=== PATIENT | female | born 1940 | race Asian ===

== ENCOUNTER → 2016-07-26 | Outpatient (CLI) | payer BC ==
[~2016-07-26] MED LIST: CEPH500C PO; CHOL100010 PO; DLC5 PO; DOCU-94 PO; ERGO1CAP35 PO; FENO145T26 PO; FISHOIL PO; INSDGI SC; INSDGIPEN SC; INSU1INJ23 SC; LAMO100T PO; LAMO25TA PO; LEVO112T2 PO; LITH150C PO; LMC25 PO; LORA-741 PO; LOSA100T65 PO; MULT-513 PO; NVLGI SC; NVLGI/PEN SQ; NVLGIPEN SQ; OMEG10007 PO; PANT40TA PO; QUET400T PO; SENN-61 PO
[2016-07-26 17:31] LABS: HEMATOCRIT 33.2 % (37-47); MEAN CELL VOLUME 94.6 fL (80-100); MEAN CORPUSCULAR HEMOGLOBIN 31.3 pg (25-34); MEAN CORPUSCULAR HGB CONC 33.1 g/dl (32-36); MEAN PLATELET VOLUME 11.4 fL (7.4-10.4); PLATELET COUNT 305 K/uL (130-400); RED BLOOD COUNT 3.51 M/uL (4.2-5.4); WHITE BLOOD COUNT 4.94 K/uL (4.8-10.8)
[2016-07-26 17:34] LABS: URINE APPEARANCE CLEAR (CLEAR); URINE BILIRUBIN NEG (NEG); URINE COLOR YELLOW; URINE EPITHELIAL CELL AUTO 20-30 /lpf (0-5); URINE NITRITE NEG (NEG); URINE SPECIFIC GRAVITY 1.007 (1.000-1.030); UROBILINOGEN NEG (NEG)
[2016-07-26 17:39] LABS: MANUAL MICROSCOPIC REQUIRED? NO; REVIEW REQ? NO
[2016-07-26 17:58] LABS: URINE PROTIEN/CREAT RATIO 0.2 (0-0.2); URINE TOTAL PROTEIN 19.8 mg/dl (0-11.9)
[2016-07-26 18:02] LABS: BLOOD UREA NITROGEN 22 mg/dl (7-18); BUN/CREATININE RATIO 13.2 (10-20); CALCIUM 9.3 mg/dl (8.5-10.1); CARBON DIOXIDE 31 mmol/L (21-32); CHLORIDE 98 mmol/L (98-107); GLUCOSE 154 mg/dl (70-99); POTASSIUM 4.1 mmol/L (3.5-5.1); SODIUM 136 mmol/L (136-145)
[2016-07-26 18:15] LABS: PHOSPHORUS 3.1 mg/dl (2.5-4.9)
[2016-07-27 06:20] LABS: ESTIMATED AVERAGE GLUCOSE 154 mg/dl; HA1C FLAG Normal (Normal)
== END | disposition home or self-care (01) ==
LOC: C.LAB1850 16:39
PROVIDERS: ATTEND Internal Medicine Nephrology
DX: E11.649 Type 2 diabetes mellitus with hypoglycemia without coma (principal); D64.9 Anemia, unspecified; I12.9 Hypertensive chronic kidney disease with stage 1 through stage 4 chronic kidney disease, or unspecified chronic kidney disease; E21.3 Hyperparathyroidism, unspecified; E11.22 Type 2 diabetes mellitus with diabetic chronic kidney disease; N18.3 Chronic kidney disease, stage 3 (moderate); E55.9 Vitamin D deficiency, unspecified

== ENCOUNTER 2016-12-31 23:02 | Observation (INO) | payer BC ==
[~2016-12-31] VITALS: Ht 162.6 cm; Wt 52.5 kg
[~2016-12-31 23:02] MED LIST changes: -CEPH500C PO; -INSDGIPEN SC; -LAMO100T PO; -LAMO25TA PO; -LMC25 PO; -LORA-741 PO; -NVLGI/PEN SQ; -NVLGIPEN SQ; -OMEG10007 PO
--- NOTE | 2016-12-31 23:33 | EMERGENCY ROOM VISIT NOTE ---
History Report prepared by Madiha: Tre Marques Under the Supervision of: Dr. Miguelangel Hickey M.D. First contact with patient: 23:15 Chief Complaint: CONSTIPATION Stated Complaint: CONSTIPATION History of Present Illness The patient is a 76 year old female who presents to the Emergency Room with complaints of constipation for the past couple of days. She is experiencing abdominal pain that she rates a 10/10 in severity. The pain has made it difficult for the patient to walk. She notes that this has happened to her in the past; however, her pain is much worse this time. She denies any fevers. She has a past medical history of diabetes and bi polar disorder. She took an Ativan earlier tonight. She denies any recent changes to her medications. Source of History: patient Onset: a couple of days ago Position: other (GI) Symptom Intensity: moderate Quality: other (constipation) Timing: constant Associated Symptoms: + abdominal pain, No fevers Review of Systems See HPI for pertinent positives & negatives. A total of 10 systems reviewed and were otherwise negative. Past Medical & Surgical Medical Problems: (1) BIPOL I, MOST RECENT EPISODE (OR CURRENT) UNSPECIFIED (2) Constipation (3) Diabetes (4) Heart disease (5) Hypertension (6) Hyponatremia (7) Hysterectomy (8) MALIGN NEOPL BREAST NOS (9) Rectal pain, chronic Family History Cancer Diabetes mellitus Hypertension Social History Smoking Status: Never Smoker Alcohol Use: none Drug Use: none Marital Status: Housing Status: lives with significant other Occupation Status: unemployed Current/Historical Medications Scheduled Fenofibrate (Tricor), 145 MG PO DAILY Fish Oil (Lewis-3), 2 CAP PO DAILY Insulin Aspart (Novolog Flexpen), 6 UNITS SQ with afternoon meal Insulin Aspart (Novolog Flexpen), 5 UNITS SQ with am & pm meal Insulin Glargine (Lantus Solostar), 12 UNITS SC QPM Insulin Isophane (Human) (Humulin N Kwikpen), 3 UNITS SC QPM Levothyroxine Sodium (Synthroid), 112 MCG PO DAILY Dewar Carbonate ([place] Carbonate), 150 MG PO QPM Lorazepam (Ativan), 0.5 MG PO DAILY Losartan Potassium (Cozaar), 100 MG PO DAILY Multivitamins/Minerals (Mvi With Minerals), 1 TAB PO DAILY Pantoprazole (Protonix), 40 MG PO DAILY Quetiapine Fumarate Xr (Seroquel Xr Tab), 400 MG PO HS Allergies Coded Allergies: Iodinated Diagnostic Agents (Verified Allergy, Severe, Anaphylaxis, ) Dust (Verified Allergy, Unknown, UNKNOWN, 12/31/16) Fungi (Verified Allergy, Unknown, UNKNOWN, 12/31/16) Molds and Smuts (Verified Allergy, Unknown, UNKNOWN, 12/31/16) POLLEN (Verified Allergy, Unknown, UNKNOWN, 12/31/16) Physical Exam Vital Signs Date Time Temp Pulse Resp B/P (MAP) Pulse Ox O2 Delivery O2 Flow Rate FiO2 01/01/17 01:59 82 18 121/74 96 Room Air 01/01/17 01:15 84 18 96 Room Air 01/01/17 00:07 88 18 124/77 96 Room Air 12/31/16 23:40 84 12/31/16 23:37 95 Room Air 12/31/16 23:35 80 18 124/77 95 Room Air 12/31/16 23:03 36.7 89 20 118/79 96 Room Air Physical Exam GENERAL: Patient is anxious appearing and in moderate acute distress. HEENT: No acute trauma, normocephalic atraumatic, mucous membranes moist, no nasal congestion, no scleral icterus. NECK: No stridor, no adenopathy, no meningismus, trachea is midline. LUNGS: No dyspnea. Clear to auscultation and equal bilaterally. No wheeze, no rhonchi. HEART: Regular rate and rhythm. No murmurs, rubs, gallops appreciated. ABDOMEN: Soft, nontender, bowel sounds hypoactive, no masses appreciated, no peritonitis. BACK: No midline tenderness, no CVA tenderness EXTREMITIES: Normal motion all extremities, no cyanosis, no edema. NEUROLOGIC: Alert and oriented, no acute motor or sensory deficits, no focal weakness, cranial nerves grossly intact. SKIN: No rash, no jaundice, no diaphoresis. Medical Decision & Procedures ER Provider Diagnostic Interpretation: Radiology results and stated below per my review and radiologist interpretation: CT ABDOMEN & PELVIS: Fluid within nondistended stomach and bowel without wall thickening or surrounding inflammation is nonspecific and may be normal but can also be seen with gastroenteritis in the right clinical setting. No bowel obstruction. No appendicitis or other inflammatory changes of bowel. Pancreas is unremarkable. Prior cholecystectomy. No renal calculi. No hydronephrosis. Renal cysts. Left renal atrophy/scarring. No free air or free fluid. Chronic appearing moderate anterior wedge deformity of the T12 vertebral body. No retropulsion or underlying pathology. Great 1 degenerative anterolisthesis of L4 on L5. Radiologist: Humberto Velasquez M.D. Laboratory Results 12/31/16 23:40 Red Blood Count 4.05, Mean Corpuscular Volume 91.1, Mean Corpuscular Hemoglobin 28.9, Mean Corpuscular Hemoglobin Concent 31.7, Mean Platelet Volume 10.4, Neutrophils (%) (Auto) 63.7, Lymphocytes (%) (Auto) 29.4, Monocytes (%) (Auto) 6.0, Eosinophils (%) (Auto) 0.5, Basophils (%) (Auto) 0.1, Neutrophils # (Auto) 4.98, Lymphocytes # (Auto) 2.30, Monocytes # (Auto) 0.47, Eosinophils # (Auto) 0.04, Basophils # (Auto) 0.01 Test 12/31/16 23:40 White Blood Count 7.82 K/uL (4.8-10.8) Red Blood Count 4.05 M/uL (4.2-5.4) Hemoglobin 11.7 g/dL (12.0-16.0) Hematocrit 36.9 % (37-47) Mean Corpuscular Volume 91.1 fL (80-100) Mean Corpuscular Hemoglobin 28.9 pg (25-34) Mean Corpuscular Hemoglobin Concent 31.7 g/dl (32-36) Platelet Count 440 K/uL (130-400) Mean Platelet Volume 10.4 fL (7.4-10.4) Neutrophils (%) (Auto) 63.7 % Lymphocytes (%) (Auto) 29.4 % Monocytes (%) (Auto) 6.0 % Eosinophils (%) (Auto) 0.5 % Basophils (%) (Auto) 0.1 % Neutrophils # (Auto) 4.98 K/uL (1.4-6.5) Lymphocytes # (Auto) 2.30 K/uL (1.2-3.4) Monocytes # (Auto) 0.47 K/uL (0.11-0.59) Eosinophils # (Auto) 0.04 K/uL (0-0.5) Basophils # (Auto) 0.01 K/uL (0-0.2) RDW Standard Deviation 43.5 fL (36.4-46.3) RDW Coefficient of Variation 13.0 % (11.5-14.5) Immature Granulocyte % (Auto) 0.3 % Immature Granulocyte # (Auto) 0.02 K/uL (0.00-0.02) Est Creatinine Clear Calc Drug Dose 12.8 ml/min Total Bilirubin 0.3 mg/dl (0.2-1) Direct Bilirubin < 0.1 mg/dl (0-0.2) Aspartate Amino Transf (AST/SGOT) 31 U/L (15-37) Alanine Aminotransferase (ALT/SGPT) 21 U/L (12-78) Alkaline Phosphatase 118 U/L (45-117) Total Protein 7.9 gm/dl (6.4-8.2) Albumin 4.2 gm/dl (3.4-5.0) Lipase 782 U/L (73-393) Thyroid Stimulating Hormone (TSH) 3.950 uIu/ml (0.300-4.500) [place] Level 0.4 mMOL/L (0.6-1.2) Laboratory results as reviewed by me. Medications Administered Medications (Trade) Dose Ordered Sig/Gin Route Start Time Stop Time Status Last Admin Dose Admin Sodium Chloride 500 ml @ 999 mls/hr Q31M STAT IV 01/01/17 00:18 01/01/17 00:48 DC 01/01/17 00:28 999 MLS/HR ED Course 2315: The patient was evaluated in room C7. A complete history and physical exam was performed. 0018: Ordered Sodium Chloride 500 ml @ 999 mls/hr IV 0027: Upon reevaluation, the patient is resting. Discussed results and treatment plan with the patient. She verbalized understanding and agreement with the treatment plan. The patient will be evaluated by Dr. Dieter BAZAN, for further management. Medical Decision Differential diagnosis: Etiologies such as functional constipation, impaction, obstruction, volvulus, metabolic abnormality, infection, urinary retention, neurologic, as well as others were entertained. Blood pressure screening: Patient was found to have normal blood pressure on screening and does not require follow-up. Medication Reconciliation: I attest that I have personally reviewed the patient 's current medication list. 76 yr old female arrives for evaluation of lower abdominal discomfort and stating she feels constipated. No BM in two days. With pain and history felt imaging reasonable (non con as allergic to IV dye) which revealed not acute surgical findings. She was found to be in acute renal failure. Appears in Jul 2016 mild renal insufficiency at 1.7 with baseline having been around 1 and now Cr up to 3. Suspect this is somewhat dehydration related given her exam and BUN elevation. Dewar level OK. No clear evidence of overt infection. Will bring in for further work-up and evaluation. Consults Time Called: 002 Consulting Physician: Dr. Garcias - [facility] [place] Returned Call: 0027 He will be evaluating the patient for further management and care. Impression Primary Impression: Acute kidney failure Additional Impression: Dehydration Scribe Attestation The scribe's documentation has been prepared under my direction and personally reviewed by me in its entirety. I confirm that the note above accurately reflects all work, treatment, procedures, and medical decision making performed by me. Departure Information Dispostion Being Evaluated By Hospitalist Referrals ,Danyel Olivarez M.D. (PCP) Patient Instructions My [facility] Problem Qualifiers
[2016-12-31 23:46] LABS: BASO % 0.1 %; BASO ABS # 0.01 K/uL (0-0.2); COMPLETE YES; EOS % 0.5 %; HEMATOCRIT 36.9 % (37-47); IG% 0.3 %; LYMPH % 29.4 %; MEAN CELL VOLUME 91.1 fL (80-100); MEAN CORPUSCULAR HEMOGLOBIN 28.9 pg (25-34); MEAN CORPUSCULAR HGB CONC 31.7 g/dl (32-36); MEAN PLATELET VOLUME 10.4 fL (7.4-10.4); NEUT % 63.7 %; PLATELET COUNT 440 K/uL (130-400); RED BLOOD COUNT 4.05 M/uL (4.2-5.4); WHITE BLOOD COUNT 7.82 K/uL (4.8-10.8)
[2017-01-01 00:04] LABS: ALT/SGPT 21 U/L (12-78); BLOOD UREA NITROGEN 69 mg/dl (7-18); BUN/CREATININE RATIO 23.1 (10-20); CALCIUM 9.9 mg/dl (8.5-10.1); CARBON DIOXIDE 38 mmol/L (21-32); CHLORIDE 92 mmol/L (98-107); GLUCOSE 105 mg/dl (70-99); POTASSIUM 4.3 mmol/L (3.5-5.1); SODIUM 135 mmol/L (136-145)
[2017-01-01 00:07] LABS: ALKALINE PHOSPHATASE 118 U/L (45-117); AST/SGOT 31 U/L (15-37)
[2017-01-01] MEDS ORDERED: SODIUM CHLORIDE 0.9% 500ML 500 ML IV STA (00:18)
[2017-01-01] MEDS ORDERED: OMEG10007 PO (00:28)
[2017-01-01] MEDS ORDERED: LORA-741 PO (00:30)
[2017-01-01] MEDS ORDERED: INSDGIPEN SC (00:30)
[2017-01-01] MEDS ORDERED: NVLGIPEN SQ (00:32)
[2017-01-01] MEDS ORDERED: NVLGI/PEN SQ (00:32)
[2017-01-01] MEDS ORDERED: GLUCOSE 40% GEL 15 GM TUBE PO PRN (01:30)
[2017-01-01] MEDS ORDERED: DC ALL PREVIOUSLY ORDERED DIABETES MEDS ONE (01:30)
[2017-01-01] MEDS ORDERED: ACETAMINOPHEN 325 MG TAB PO PRN (01:30)
[2017-01-01] MEDS ORDERED: DEXTROSE 50% 50 ML SYR IV PRN (01:30)
[2017-01-01] MEDS ORDERED: GLUCAGON FOR INJ 1 MG VIAL SQ PRN (01:30)
[2017-01-01] MEDS ORDERED: GLUCOSE 10 TABS/TUBE PO PRN (01:30)
[2017-01-01] MEDS ORDERED: ONDANSETRON INJ 2 MG/ML 2 ML VIAL IV PRN (01:30)
[2017-01-01] MEDS ORDERED: IV FLUIDS COMPLETED PRN (02:45)
[2017-01-01 03:03] VITALS: BP 148/71; PULSE 82; TEMP 37; O2SAT 95; Ht 162.6 cm; Wt 52.5 kg
--- NOTE | 2017-01-01 03:10 | History and Physical ---
History & Physical Date & Time of Service: Jan 01, 2017 at 02:50 Chief Complaint: Acute Kidney Failure Primary Care Physician: No Doctor, Assigned History of Present Illness Source: patient, clinic records, hospital records Unclear history from patient with regards to symptoms and timings. It appears her main symptom when she came to the ER was constipation and abdominal pain but currently does not have any abdominal pain and just asks me to get the poo out of her. She is unable to expand on her pain in terms of severity, onset, timing, character, other than she feels she needs to have a bowel movement despite having 3-4 already today. She reports recently being off lithium for 4 days and making her feel generally sick. She thinks Dr Castillo may have taken her off of it due to her thirst and kidney problems. However her symptoms were too severe that she was started back on lithium (she is unsure exactly when and mentions something about half a dose but it is unclear whether she is currently doing this). Unfortunately her has hearing problems and also is unaware of her symptoms other than she has chronic constipation. Past Medical/Surgical History Medical Problems: (1) BIPOL I, MOST RECENT EPISODE (OR CURRENT) UNSPECIFIED Status: Chronic (2) Constipation Status: Chronic (3) Diabetes Status: Chronic (4) Heart disease Status: Chronic (5) Hypertension Status: Chronic (6) Hysterectomy Status: Resolved (7) MALIGN NEOPL BREAST NOS Status: Resolved Family History Cancer Diabetes mellitus Hypertension Social History Smoking Status: Never Smoker Drug Use: none Marital Status: Housing status: lives with family Occupational Status: unemployed Immunizations History of Influenza Vaccine: No Influenza Vaccine Date: Sep 21, 2005 History of Tetanus Vaccine?: UTD History of Pneumococcal: No History of Hepatitis B Vaccine: No Multi-Drug Resistant Organisms History of MDRO: No Allergies Coded Allergies: Iodinated Diagnostic Agents (Verified Allergy, Severe, Anaphylaxis, ) Dust (Verified Allergy, Unknown, UNKNOWN, 12/31/16) Fungi (Verified Allergy, Unknown, UNKNOWN, 12/31/16) Molds and Smuts (Verified Allergy, Unknown, UNKNOWN, 12/31/16) POLLEN (Verified Allergy, Unknown, UNKNOWN, 12/31/16) Home Medications Scheduled Fenofibrate (Tricor), 145 MG PO DAILY Fish Oil ([place]-3), 2 CAP PO DAILY Insulin Aspart (Novolog Flexpen), 6 UNITS SQ with afternoon meal Insulin Aspart (Novolog Flexpen), 5 UNITS SQ with am & pm meal Insulin Glargine (Lantus Solostar), 12 UNITS SC QPM Insulin Isophane (Human) (Humulin N Kwikpen), 3 UNITS SC QPM Levothyroxine Sodium (Synthroid), 112 MCG PO DAILY [place] Carbonate ([place] Carbonate), 150 MG PO QPM Lorazepam (Ativan), 0.5 MG PO DAILY Losartan Potassium (Cozaar), 100 MG PO DAILY Multivitamins/Minerals (Mvi With Minerals), 1 TAB PO DAILY Pantoprazole (Protonix), 40 MG PO DAILY Quetiapine Fumarate Xr (Seroquel Xr Tab), 400 MG PO HS Review of Systems Constitutional: No fever, No chills Eyes: No worsening of vision ENT: No hearing loss Respiratory: No cough, No shortness of breath Cardiovascular: No chest pain Abdomen: No pain, No nausea, No vomiting, No diarrhea, No constipation, No GI bleeding Musculoskeletal: No joint pain, No muscle pain Genitourinary - Female: No dysuria, No urinary frequency, No urinary urgency, No urinary incontinence, No urinary retention Endocrine: No fatigue Hematologic / Lymphatic: No abnormal bleeding/bruising Integumentary: No rash, No itch Physical Exam Vital Signs Date Time Temp Pulse Resp B/P (MAP) Pulse Ox O2 Delivery O2 Flow Rate FiO2 01/01/17 01:59 82 18 121/74 96 Room Air 01/01/17 01:15 84 18 96 Room Air 01/01/17 00:07 88 18 124/77 96 Room Air 12/31/16 23:40 84 12/31/16 23:37 95 Room Air 12/31/16 23:35 80 18 124/77 95 Room Air 12/31/16 23:03 36.7 89 20 118/79 96 Room Air General Appearance: WD/WN, no apparent distress Head: normocephalic, atraumatic Eyes: normal inspection (pupils equal) Neck: supple, no JVD, trachea midline Respiratory/Chest: chest non-tender, lungs clear, normal breath sounds, no respiratory distress, no accessory muscle use Cardiovascular: regular rate, rhythm, no murmur, normal peripheral pulses Abdomen/GI: normal bowel sounds, non tender, soft, normal rectal exam (empty rectum no stool, FOB negative (but negliable sample size)) Back: no CVA tenderness Extremities/Musculoskelatal: no calf tenderness Neurologic/Psych: 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-XII nml as tested (no facial droop), no motor/sensory deficits (grossly), alert, oriented x 3 Diagnostics Laboratory Results Results Past 24 Hours Test 12/31/16 23:40 Range/Units White Blood Count 7.82 4.8-10.8 K/uL Red Blood Count 4.05 4.2-5.4 M/uL Hemoglobin 11.7 12.0-16.0 g/dL Hematocrit 36.9 37-47 % Mean Corpuscular Volume 91.1 80-100 fL Mean Corpuscular Hemoglobin 28.9 25-34 pg Mean Corpuscular Hemoglobin Concent 31.7 32-36 g/dl Platelet Count 440 130-400 K/uL Mean Platelet Volume 10.4 7.4-10.4 fL Neutrophils (%) (Auto) 63.7 % Lymphocytes (%) (Auto) 29.4 % Monocytes (%) (Auto) 6.0 % Eosinophils (%) (Auto) 0.5 % Basophils (%) (Auto) 0.1 % Neutrophils # (Auto) 4.98 1.4-6.5 K/uL Lymphocytes # (Auto) 2.30 1.2-3.4 K/uL Monocytes # (Auto) 0.47 0.11-0.59 K/uL Eosinophils # (Auto) 0.04 0-0.5 K/uL Basophils # (Auto) 0.01 0-0.2 K/uL RDW Standard Deviation 43.5 36.4-46.3 fL RDW Coefficient of Variation 13.0 11.5-14.5 % Immature Granulocyte % (Auto) 0.3 % Immature Granulocyte # (Auto) 0.02 0.00-0.02 K/uL Sodium Level 135 136-145 mmol/L Potassium Level 4.3 3.5-5.1 mmol/L Chloride Level 92 98-107 mmol/L Carbon Dioxide Level 38 21-32 mmol/L Anion Gap 5.0 3-11 mmol/L Blood Urea Nitrogen 69 7-18 mg/dl Creatinine 3.00 0.60-1.20 mg/dl Est Creatinine Clear Calc Drug Dose 12.8 ml/min Estimated GFR () 16.6 Estimated GFR (Non- 14.3 BUN/Creatinine Ratio 23.1 10-20 Random Glucose 105 70-99 mg/dl Calcium Level 9.9 8.5-10.1 mg/dl Total Bilirubin 0.3 0.2-1 mg/dl Direct Bilirubin < 0.1 0-0.2 mg/dl Aspartate Amino Transf (AST/SGOT) 31 15-37 U/L Alanine Aminotransferase (ALT/SGPT) 21 12-78 U/L Alkaline Phosphatase 118 45-117 U/L Total Protein 7.9 6.4-8.2 gm/dl Albumin 4.2 3.4-5.0 gm/dl Lipase 782 73-393 U/L Thyroid Stimulating Hormone (TSH) 3.950 0.300-4.500 uIu/ml [place] Level 0.4 0.6-1.2 mMOL/L Diagnostic Radiology ABD/PELVIS WITHOUT FOR STONE CLINICAL HISTORY: 76 years-old Female presenting with diffuse abdominal pain, constipation. TECHNIQUE: Multidetector CT of the abdomen and pelvis was performed without the use of intravenous contrast. IV contrast: None. COMPARISON: 02/20/2016. CT DOSE: The estimated cumulative dose is 372.75 mGy.cm. FINDINGS: Vibration Analyst topogram: Cholecystectomy clips and linear density in the region of the left renal hilum. Lung bases: Dependent groundglass opacities/mosaic attenuation, likely atelectasis. Normal heart size. Coronary artery calcification. Trace pericardial effusion. No pleural effusion. Liver: Normal morphology. Normal density. Biliary: Mild prominence of the intrahepatic and extrahepatic bile ducts likely a reservoir effect in the post cholecystectomy state. Surgically absent gallbladder. Pancreas: Normal. Spleen: Normal. Adrenal glands: Normal. Kidneys and ureters: Mildly exophytic lesion at the upper pole the right kidney is soft tissue density, indeterminate. This is unchanged from prior exam. Prominent hypodense round lesion in the lower pole the right kidney likely represent cysts. Similarly the left kidney contains multiple well-defined hypodensities, indeterminate but likely cysts. Additionally a round hyperdense focus at the lower pole laterally measures 12 mm in diameter (series 2 image 58) and is similar in appearance to prior exam. No hydronephrosis. Prominent linear hyperdensity along the course of a segmental left renal artery likely represents dense atherosclerosis. Gastrointestinal tract: Fluid within the colon likely suggests diarrheal state. No significant colonic wall thickening. Normal appendix. No bowel obstruction. Linear hyperdensity in the stomach consistent with dense ingested material. Peritoneal cavity: No free fluid or intraperitoneal gas. Bladder: Mild apparent circumferential bladder wall thickening. No perivesicular inflammatory change. Pelvic organs: Patient is status post hysterectomy. No adnexal masses. Vasculature: Atherosclerosis of the normal caliber abdominal aorta. Lymph nodes: No enlarged lymph nodes in the abdomen or pelvis. Abdominal wall: Diastases of the abdominis rectus. Infiltration in the anterior abdominal wall with a focus of gas likely relates to medication injection. Musculoskeletal: Degenerative changes of the lumbar spine and sacroiliac joints. Mild anterior vertebral body height loss of T12. Mild anterolisthesis of L4 on L5. IMPRESSION: 1. Fluid within the colon suggests a diarrheal state. No colonic wall thickening to suggest colitis. 2. Multiple suspected renal cysts in addition to a soft tissue density lesion at the upper pole the right kidney and hyperdense lesion in the left kidney. These are incompletely characterized. Benign entity such as hemorrhagic or proteinaceous cysts could have this appearance, although neoplasm cannot be excluded. 3. Mild circumferential bladder wall thickening, which could relate to underdistention or represent mild cystitis. Correlate with urinalysis. Electronically signed by: Ed White M.D. 01/01/2017 7:04 AM Dictated Date/Time: 01/01/2017 6:53 AM Impression Assessment and Plan 76 year old female with chronic abdominal pains and constipation presents with similar symptoms to previous occasions YEVGENIY vs. CKD - unclear how acute her Cr rise is considering in Jul Cr 1.7, under Dr Cruz for CKD stage 3 - stop nephrotoxic medications including ACEi - IVF overnight - UA + micro +/- culture if indicated - Consult nephrology Bipolar - continue lithium for mood stabilization currently at non toxic level but will consult psychiatry if there is an alternative suitable mood stabilizer for her. VTE Prophylaxis - heparin 5000 units SQ Q12H Code - Full as per patient wishes although she has limited understanding of this despite multiple explanations Disposition - admit to med/surg Resident Physician Supervision Note: I was present with Dr. Trevino during the history and exam. I discussed the case with the resident and agree with the findings and plan as documented in the note. Any exceptions or clarifications are listed here: Documented By: Zuhair Garcias 76 y/o F CKD (possibly stage 3), Bipolar disease, hyponatremia, HTN Presented with abdominal discomfort related to constipation however labs returned + for acute on chronic RF OE AAO x 2 S1,2 R CTAB Mild diffuse tenderness on abdominal exam No CCE P: IVF - consult nephrology Urine lytes ordered [place] level checked - not toxic but can contribute to failure regardless - may need substitution which has proved difficult in past Resuscitation Status FULL RESUSCITATION VTE Prophylaxis VTE Risk Assessment Done? Y/N: Yes Risk Level: Moderate Given or contraindicated: Unfractionated heparin SQ
[2017-01-01] MEDS ORDERED: PNEUMOCOCCAL ADMINISTRATION CHARGE ONE (03:45)
[2017-01-01] MEDS ORDERED: PNEUMOCOCCAL POLYSACCHARIDES 25 MCG/0.5 ML VIAL/SYR IM. ONE (03:45)
[2017-01-01] MEDS: SODIUM CHLORIDE 0.9% 1000ML 1,000 ML IV SCH ×4 (04:21→18:36)
[2017-01-01 05:55] LABS: PROTHROMBIN TIME (PATIENT) 10.3 SECONDS (9.0-12.0)
[2017-01-01 06:19] LABS: CALCIUM 9.2 mg/dl (8.5-10.1); CREATININE 2.7 mg/dl (0.60-1.20); POTASSIUM 3.8 mmol/L (3.5-5.1)
[2017-01-01] MEDS: LEVOTHYROXINE 112 MCG TAB PO SCH (06:30)
[2017-01-01 06:55] LABS: ARTERIAL BLD GAS O2 SATURATION 96.7 % (90-95); ARTERIAL BLOOD GAS BASE EXCESS 4.7 mEq/L (-9-1.8); ARTERIAL BLOOD GAS HCO3 29 mmol/L (19-24); ARTERIAL BLOOD GAS PO2 89 mm/Hg (80-95); ARTERIAL BLOOD GAS pH 7.47 (7.35-7.45)
[2017-01-01 06:56] LABS: ALLEN TEST POS (POS); O2 ADMINISTRATION ROOM AIR
[2017-01-01 06:58] LABS: ESTIMATED AVERAGE GLUCOSE 148 mg/dl; HA1C FLAG Normal (Normal)
--- NOTE | 2017-01-01 07:05 | DIAGNOSTIC IMAGING REPORT ---
ABD/PELVIS WITHOUT FOR STONE CLINICAL HISTORY: 76 years-old Female presenting with diffuse abdominal pain, constipation. TECHNIQUE: Multidetector CT of the abdomen and pelvis was performed without the use of intravenous contrast. IV contrast: None. COMPARISON: 02/20/2016. CT DOSE: The estimated cumulative dose is 372.75 mGy.cm. 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 Lung bases: Dependent groundglass opacities/mosaic attenuation, likely atelectasis. Normal heart size. Coronary artery calcification. Trace pericardial effusion. No pleural effusion. Liver: Normal morphology. Normal density. Biliary: Mild prominence of the intrahepatic and extrahepatic bile ducts likely a reservoir effect in the post cholecystectomy state. Surgically absent gallbladder. Pancreas: Normal. Spleen: Normal. Adrenal glands: Normal. Kidneys and ureters: Mildly exophytic lesion at the upper pole the right kidney is soft tissue density, indeterminate. This is unchanged from prior exam. Prominent hypodense round lesion in the lower pole the right kidney likely represent cysts. Similarly the left kidney contains multiple well-defined hypodensities, indeterminate but likely cysts. Additionally a round hyperdense focus at the lower pole laterally measures 12 mm in diameter (series 2 image 58) and is similar in appearance to prior exam. No hydronephrosis. Prominent linear hyperdensity along the course of a segmental left renal artery likely represents dense atherosclerosis. Gastrointestinal tract: Fluid within the colon likely suggests diarrheal state. No significant colonic wall thickening. Normal appendix. No bowel obstruction. Linear hyperdensity in the stomach consistent with dense ingested material. Peritoneal cavity: No free fluid or intraperitoneal gas. Bladder: Mild apparent circumferential bladder wall thickening. No perivesicular inflammatory change. Pelvic organs: Patient is status post hysterectomy. No adnexal masses. Vasculature: Atherosclerosis of the normal caliber abdominal aorta. Lymph nodes: No enlarged lymph nodes in the abdomen or pelvis. Abdominal wall: Diastases of the abdominis rectus. Infiltration in the anterior abdominal wall with a focus of gas likely relates to medication injection. Musculoskeletal: Degenerative changes of the lumbar spine and sacroiliac joints. Mild anterior vertebral body height loss of T12. Mild anterolisthesis of L4 on L5. IMPRESSION: 1. Fluid within the colon suggests a diarrheal state. No colonic wall thickening to suggest colitis. 2. Multiple suspected renal cysts in addition to a soft tissue density lesion at the upper pole the right kidney and hyperdense lesion in the left kidney. These are incompletely characterized. Benign entity such as hemorrhagic or proteinaceous cysts could have this appearance, although neoplasm cannot be excluded. 3. Mild circumferential bladder wall thickening, which could relate to underdistention or represent mild cystitis. Correlate with urinalysis. Electronically signed by: Ed White M.D. 01/01/2017 7:04 AM Dictated Date/Time: 01/01/2017 6:53 AM
[2017-01-01 08:00] VITALS: O2SAT 95
[2017-01-01 08:39] LABS: URINE APPEARANCE CLEAR (CLEAR); URINE BILIRUBIN NEG (NEG); URINE COLOR YELLOW; URINE NITRITE NEG (NEG); URINE SPECIFIC GRAVITY 1.017 (1.000-1.030); UROBILINOGEN NEG (NEG); ZZURINE CULT IF INDIC CATH YES
[2017-01-01 08:42] LABS: MANUAL MICROSCOPIC REQUIRED? NO; REVIEW REQ? NO
[2017-01-01] MEDS ORDERED: LORAZEPAM 0.5 MG TAB PO SCH (09:00)
[2017-01-01 09:15] LABS: BENZODIAZEPINE, URINE NEG (NEG); COCAINE,URINE NEG (NEG); PHENCYCLIDINE, URINE NEG (NEG)
[2017-01-01] MEDS: PANTOprazole SOD 40 MG TAB PO SCH (09:35)
[2017-01-01] MEDS: CEROVITE ADV FORMULA TAB PO SCH (09:35)
[2017-01-01] MEDS: FENOFIBRATE 145 MG TAB PO SCH (09:36)
[2017-01-01] MEDS: INSULIN GLARGINE SOLOSTAR 100 UNITS/ML 3 ML PEN SC SCH ×2 (09:37→21:15)
[2017-01-01] MEDS: HEPARIN SOD 5000 UNIT/0.5 ML CARP SQ SCH ×2 (09:38→21:00)
--- NOTE | 2017-01-01 10:27 | Medical Student: [facility] ---
Med Student Progress Note Date of Service Jan 01, 2017. Subjective Pt evaluation today including: physical exam, chart review, lab review Ms. Lanier is a 76 year old female who presented to the ER with constipation and abdominal pain, which resolved by the time she had gotten to the floor. Per nursing, overnight was responsive only to sternal rub. Vital signs were stable, BG 188, ABG with slight metabolic alkalosis. Prior to unresponsive event, patient was responsive and answering questions appropriately. No medications given prior. Upon examination this morning, she was not responsive to voice or light touch. She would become responsive after multiple painful stimuli. She was alert and oriented x3 and continue to request her lithium before repeatedly closing her eyes. Objective Vital Signs Date Time Temp Pulse Resp B/P (MAP) Pulse Ox O2 Delivery O2 Flow Rate FiO2 01/01/17 03:03 37.0 82 20 148/71 95 Room Air 01/01/17 01:59 82 18 121/74 96 Room Air 01/01/17 01:15 84 18 96 Room Air 01/01/17 00:07 88 18 124/77 96 Room Air 12/31/16 23:40 84 12/31/16 23:37 95 Room Air 12/31/16 23:35 80 18 124/77 95 Room Air 12/31/16 23:03 36.7 89 20 118/79 96 Room Air Laboratory Results Last 24 Hours Test 12/31/16 23:40 01/01/17 05:08 01/01/17 06:04 01/01/17 06:44 White Blood Count 7.82 K/uL Red Blood Count 4.05 M/uL Hemoglobin 11.7 g/dL Hematocrit 36.9 % Mean Corpuscular Volume 91.1 fL Mean Corpuscular Hemoglobin 28.9 pg Mean Corpuscular Hemoglobin Concent 31.7 g/dl Platelet Count 440 K/uL Mean Platelet Volume 10.4 fL Neutrophils (%) (Auto) 63.7 % Lymphocytes (%) (Auto) 29.4 % Monocytes (%) (Auto) 6.0 % Eosinophils (%) (Auto) 0.5 % Basophils (%) (Auto) 0.1 % Neutrophils # (Auto) 4.98 K/uL Lymphocytes # (Auto) 2.30 K/uL Monocytes # (Auto) 0.47 K/uL Eosinophils # (Auto) 0.04 K/uL Basophils # (Auto) 0.01 K/uL RDW Standard Deviation 43.5 fL RDW Coefficient of Variation 13.0 % Immature Granulocyte % (Auto) 0.3 % Immature Granulocyte # (Auto) 0.02 K/uL Sodium Level 135 mmol/L 136 mmol/L Potassium Level 4.3 mmol/L 3.8 mmol/L Chloride Level 92 mmol/L 96 mmol/L Carbon Dioxide Level 38 mmol/L 34 mmol/L Anion Gap 5.0 mmol/L 6.0 mmol/L Blood Urea Nitrogen 69 mg/dl 70 mg/dl Creatinine 3.00 mg/dl 2.70 mg/dl Est Creatinine Clear Calc Drug Dose 12.8 ml/min 14.2 ml/min Estimated GFR () 16.6 18.8 Estimated GFR (Non- 14.3 16.2 BUN/Creatinine Ratio 23.1 26.0 Random Glucose 105 mg/dl 212 mg/dl Calcium Level 9.9 mg/dl 9.2 mg/dl Total Bilirubin 0.3 mg/dl Direct Bilirubin < 0.1 mg/dl Aspartate Amino Transf (AST/SGOT) 31 U/L Alanine Aminotransferase (ALT/SGPT) 21 U/L Alkaline Phosphatase 118 U/L Total Protein 7.9 gm/dl Albumin 4.2 gm/dl Lipase 782 U/L Thyroid Stimulating Hormone (TSH) 3.950 uIu/ml [place] Level 0.4 mMOL/L Prothrombin Time 10.3 SECONDS Prothromb Time International Ratio 1.0 Estimated Average Glucose 148 mg/dl Hemoglobin A1c 6.8 % Osmolality 313 mOsm/kg Bedside Glucose 188 mg/dl Arterial Blood pH 7.47 Arterial Blood Partial Pressure CO2 41 mmHg Arterial Blood Partial Pressure O2 89 mm/Hg Arterial Blood HCO3 29 mmol/L Arterial Blood Oxygen Saturation 96.7 % Arterial Blood Base Excess 4.7 mEq/L Arterial Blood Gas Delivery ROOM AIR [place] Test POS Test 01/01/17 07:39 01/01/17 08:30 Bedside Glucose 262 mg/dl Urine Color YELLOW Urine Appearance CLEAR Urine pH 8.0 Urine Specific [place] 1.017 Urine Protein NEG Urine Glucose (UA) NEG Urine Ketones NEG Urine Occult Blood NEG Urine Nitrite NEG Urine Bilirubin NEG Urine Urobilinogen NEG Urine Leukocyte Esterase SMALL Urine WBC (Auto) 5-10 /hpf Urine RBC (Auto) 0-4 /hpf Urine Hyaline Casts (Auto) 1-5 /lpf Urine Epithelial Cells (Auto) 10-20 /lpf Urine Bacteria (Auto) 1+ Urine Osmolality 399 mOms/kg Urine Random Creatinine 100.0 mg/dl Urine Random Sodium 38 mEq/L Urine Opiates Screen NEG Urine Methadone, Qualitative NEG Urine Barbiturates NEG Urine Phencyclidine (PCP) Level NEG Ur Amphetamine/Methamphetamine NEG MDMA (Ecstasy) Screen NEG Urine Benzodiazepines Screen NEG Urine Cocaine Metabolite NEG Urine Marijuana (THC) NEG Medications Current Inpatient Medications Medications (Trade) Dose Ordered Sig/Gin Route Start Time Stop Time Status Last Admin Dose Admin Acetaminophen (Tylenol Tab) 650 mg Q4H PRN PO 01/01/17 01:30 01/31/17 01:29 Ondansetron HCl (Zofran Inj) 4 mg Q6H PRN IV 01/01/17 01:30 01/31/17 01:29 Heparin Sodium (Porcine) (Heparin Sq 5000 Unit/0.5ml) 5,000 unit Q12 SQ 01/01/17 09:00 01/31/17 08:59 01/01/17 09:38 5,000 UNIT Insulin Glargine (Lantus Solostar Pen) 6 units Q12H SC 01/01/17 09:00 01/31/17 08:59 01/01/17 09:37 6 UNITS Insulin Aspart (novoLOG ASPART) SLIDING SCALE If C... ACHS SC 01/01/17 06:30 01/31/17 06:59 UNV Glucose (Glucose 40% Gel) 15-30 GRAMS 15 GRAMS... UD PRN PO 01/01/17 01:30 01/31/17 01:29 Glucose (Glucose Chew Tab) 4-8 Tablets 4 Tabl... UD PRN PO 01/01/17 01:30 01/31/17 01:29 Dextrose (Dextrose 50% 50ML Syringe) 25-50ML OF 50% DW IV FOR... UD PRN IV 01/01/17 01:30 01/31/17 01:29 Glucagon (Glucagon Inj) 1 mg UD PRN SQ 01/01/17 01:30 01/31/17 01:29 Fenofibrate (Tricor Tab) 145 mg DAILY PO 01/01/17 09:00 01/31/17 08:59 01/01/17 09:36 145 MG Levothyroxine Sodium (Synthroid Tab) 112 mcg DAILYBB PO 01/01/17 06:30 01/31/17 06:29 Lorazepam (Ativan Tab) 0.5 mg DAILY PO 01/01/17 09:00 01/31/17 08:59 01/01/17 09:35 0.5 MG Multivitamins/ Minerals (Multivitamin W/ Minerals Tab) 1 tab DAILY PO 01/01/17 09:00 01/31/17 08:59 01/01/17 09:35 1 TAB Pantoprazole Sodium (Protonix Tab) 40 mg DAILY PO 01/01/17 09:00 01/31/17 08:59 01/01/17 09:35 40 MG Quetiapine Fumarate (seroQUEL XR TAB) 400 mg HS PO 01/01/17 21:00 01/31/17 20:59 [place] Carbonate ([place] Carbonate Tab) 150 mg QPM PO 01/01/17 21:00 01/31/17 20:59 Miscellaneous (Iv Fluids Completed) 1 ea PRN PRN N/A 01/01/17 02:45 01/01/18 02:44 Sodium Chloride 1,000 ml @ 200 mls/hr Q5H IV 01/01/17 03:15 01/31/17 03:14 01/01/17 09:36 200 MLS/HR Miscellaneous Information (Order Awaiting Action) 1 ea QS N/A 01/01/17 16:00 01/31/17 15:59 Assessment and Plan Assessment and Plan: 76 year old female with PMH Bipolar I on lithium and diabetes presenting with an acute kidney injury YEVGENIY on CKD - last Cr 1.7 in Jul 2016, 2.7 on admission - hold nephrotoxic medications (losartan) - IV NS at 200ml/hr - nephrology consulted Diabetes - continue home insulin regimen Bipolar - continue lithium - consider psych consult for alternative medication Diet: PPX: heparin Dispo: med/surg CODE: FULL
--- NOTE | 2017-01-01 12:12 | Nephrology Consultation ---
Nephrology Consultation Date & Providers Date of Consultation: Jan 01, 2017. Primary Care Provider: No Doctor, Assigned Referring Provider: Reason for Consultation Evaluation and management for acute kidney injury. History of Present Illness Noe Is a 76-year-old female with past medical history significant for hypertension, diabetes, stage 3 chronic kidney disease, bipolar disorder admitted to the hospital with several days history of constipation and abdominal pain. nephrologic consult was requested as patient found to have acute kidney injury. Electronic medical records were reviewed in detail during patient's visit. Patient is a poor historian so most of the information was obtained from medical record review in hospital and office EMR. Noe has history of stage 3 chronic kidney disease baseline creatinine around 1.5-1.7, secondary to microvascular disease, chronic lithium use and hypertension. Has diabetes without retinopathy or significant proteinuria. Blood pressure seems to be well controlled on losartan 100 daily. She has history of bipolar disorder and has been on lithium however there is some information that lithium was stopped or dose changed recently. Currently she is on 150 milligram per day and lithium level on admission was 0.4. She presented to the hospital with few days history of constipation and abdominal pain. On admission CT abdomen pelvis showed no evidence of colitis or bowel obstruction, no hydronephrosis . She was started on IV hydration and her creatinine started to improve. On admission creatinine was 3.0 which improved to 2.7 this morning. All other electrolyte seems to be at acceptable. Losartan has been on hold. Renal imaging showed bilateral simple cyst and benign appearing in detail emanate lesion in both kidney which are present before as well without any new changes. Her blood pressure has been stable without any significant hypotensive episode. She is difficult to understand however denies any symptom and just wants to go home. Allergies Coded Allergies: Iodinated Diagnostic Agents (Verified Allergy, Severe, Anaphylaxis, ) Dust (Verified Allergy, Unknown, UNKNOWN, 12/31/16) Fungi (Verified Allergy, Unknown, UNKNOWN, 12/31/16) Molds and Smuts (Verified Allergy, Unknown, UNKNOWN, 12/31/16) POLLEN (Verified Allergy, Unknown, UNKNOWN, 12/31/16) Inpatient Medications Current Inpatient Medications Medications (Trade) Dose Ordered Sig/Gin Route Start Time Stop Time Status Last Admin Dose Admin Acetaminophen (Tylenol Tab) 650 mg Q4H PRN PO 01/01/17 01:30 01/31/17 01:29 Ondansetron HCl (Zofran Inj) 4 mg Q6H PRN IV 01/01/17 01:30 01/31/17 01:29 Heparin Sodium (Porcine) (Heparin Sq 5000 Unit/0.5ml) 5,000 unit Q12 SQ 01/01/17 09:00 01/31/17 08:59 01/01/17 09:38 5,000 UNIT Insulin Glargine (Lantus Solostar Pen) 6 units Q12H SC 01/01/17 09:00 01/31/17 08:59 01/01/17 09:37 6 UNITS Insulin Aspart (novoLOG ASPART) SLIDING SCALE If C... ACHS SC 01/01/17 11:00 01/31/17 10:59 Glucose (Glucose 40% Gel) 15-30 GRAMS 15 GRAMS... UD PRN PO 01/01/17 01:30 01/31/17 01:29 Glucose (Glucose Chew Tab) 4-8 Tablets 4 Tabl... UD PRN PO 01/01/17 01:30 01/31/17 01:29 Dextrose (Dextrose 50% 50ML Syringe) 25-50ML OF 50% DW IV FOR... UD PRN IV 01/01/17 01:30 01/31/17 01:29 Glucagon (Glucagon Inj) 1 mg UD PRN SQ 01/01/17 01:30 01/31/17 01:29 Fenofibrate (Tricor Tab) 145 mg DAILY PO 01/01/17 09:00 01/31/17 08:59 01/01/17 09:36 145 MG Levothyroxine Sodium (Synthroid Tab) 112 mcg DAILYBB PO 01/01/17 06:30 01/31/17 06:29 Lorazepam (Ativan Tab) 0.5 mg DAILY PO 01/01/17 09:00 01/31/17 08:59 01/01/17 09:35 0.5 MG Multivitamins/ Minerals (Multivitamin W/ Minerals Tab) 1 tab DAILY PO 01/01/17 09:00 01/31/17 08:59 01/01/17 09:35 1 TAB Pantoprazole Sodium (Protonix Tab) 40 mg DAILY PO 01/01/17 09:00 01/31/17 08:59 01/01/17 09:35 40 MG Quetiapine Fumarate (seroQUEL XR TAB) 400 mg HS PO 01/01/17 21:00 01/31/17 20:59 [place] Carbonate ([place] Carbonate Tab) 150 mg QPM PO 01/01/17 21:00 01/31/17 20:59 Miscellaneous (Iv Fluids Completed) 1 ea PRN PRN N/A 01/01/17 02:45 01/01/18 02:44 Sodium Chloride 1,000 ml @ 200 mls/hr Q5H IV 01/01/17 03:15 01/31/17 03:14 01/01/17 09:36 200 MLS/HR Family History Cancer Diabetes mellitus Hypertension Social History Smoking Status: Never Smoker Drug Use: none Marital Status: Housing Status: lives with family Occupation: unemployed Review of Systems A complete review of systems was performed. Pertinent positives are noted above. All other systems are negative. Physical Exam Date Time Temp Pulse Resp B/P (MAP) Pulse Ox O2 Delivery O2 Flow Rate FiO2 01/01/17 03:03 37.0 82 20 148/71 95 Room Air 01/01/17 01:59 82 18 121/74 96 Room Air 01/01/17 01:15 84 18 96 Room Air 01/01/17 00:07 88 18 124/77 96 Room Air 12/31/16 23:40 84 12/31/16 23:37 95 Room Air 12/31/16 23:35 80 18 124/77 95 Room Air 12/31/16 23:03 36.7 89 20 118/79 96 Room Air GENERAL: Elderly female AAA x 3, pleasant, ill-appearing, not in any distress. HEENT: Atraumatic, normocephalic. NECK: Supple, no JVD, no carotid bruit appreciated. ENT: No sinus tenderness MOUTH and THROAT: Moist oral mucosa, no oral ulcer or pharyngeal erythema RESPIRATORY: Normal breathing efforts, no accessory muscle use, clear to auscultation bilaterally, no wheezes or rales. CARDIOVASCULAR: S1, S2 normal, rate rhythm regular. ABDOMEN: Soft, nontender, positive bowel sound. MUSCULOSKELETAL: No joint swelling, erythema or tenderness. Normal range of motion. SKIN: No skin rash EXTREMITY: No lower extremity edema NEURO: No gross focal neurological deficit. PSYCHIATRY: Normal mood and judgment Laboratory Results Last 24 Hours Test 12/31/16 23:40 01/01/17 05:08 01/01/17 06:04 01/01/17 06:44 White Blood Count 7.82 K/uL Red Blood Count 4.05 M/uL Hemoglobin 11.7 g/dL Hematocrit 36.9 % Mean Corpuscular Volume 91.1 fL Mean Corpuscular Hemoglobin 28.9 pg Mean Corpuscular Hemoglobin Concent 31.7 g/dl Platelet Count 440 K/uL Mean Platelet Volume 10.4 fL Neutrophils (%) (Auto) 63.7 % Lymphocytes (%) (Auto) 29.4 % Monocytes (%) (Auto) 6.0 % Eosinophils (%) (Auto) 0.5 % Basophils (%) (Auto) 0.1 % Neutrophils # (Auto) 4.98 K/uL Lymphocytes # (Auto) 2.30 K/uL Monocytes # (Auto) 0.47 K/uL Eosinophils # (Auto) 0.04 K/uL Basophils # (Auto) 0.01 K/uL RDW Standard Deviation 43.5 fL RDW Coefficient of Variation 13.0 % Immature Granulocyte % (Auto) 0.3 % Immature Granulocyte # (Auto) 0.02 K/uL Sodium Level 135 mmol/L 136 mmol/L Potassium Level 4.3 mmol/L 3.8 mmol/L Chloride Level 92 mmol/L 96 mmol/L Carbon Dioxide Level 38 mmol/L 34 mmol/L Anion Gap 5.0 mmol/L 6.0 mmol/L Blood Urea Nitrogen 69 mg/dl 70 mg/dl Creatinine 3.00 mg/dl 2.70 mg/dl Est Creatinine Clear Calc Drug Dose 12.8 ml/min 14.2 ml/min Estimated GFR () 16.6 18.8 Estimated GFR (Non- 14.3 16.2 BUN/Creatinine Ratio 23.1 26.0 Random Glucose 105 mg/dl 212 mg/dl Calcium Level 9.9 mg/dl 9.2 mg/dl Total Bilirubin 0.3 mg/dl Direct Bilirubin < 0.1 mg/dl Aspartate Amino Transf (AST/SGOT) 31 U/L Alanine Aminotransferase (ALT/SGPT) 21 U/L Alkaline Phosphatase 118 U/L Total Protein 7.9 gm/dl Albumin 4.2 gm/dl Lipase 782 U/L Thyroid Stimulating Hormone (TSH) 3.950 uIu/ml [place] Level 0.4 mMOL/L Prothrombin Time 10.3 SECONDS Prothromb Time International Ratio 1.0 Estimated Average Glucose 148 mg/dl Hemoglobin A1c 6.8 % Osmolality 313 mOsm/kg Bedside Glucose 188 mg/dl Arterial Blood pH 7.47 Arterial Blood Partial Pressure CO2 41 mmHg Arterial Blood Partial Pressure O2 89 mm/Hg Arterial Blood HCO3 29 mmol/L Arterial Blood Oxygen Saturation 96.7 % Arterial Blood Base Excess 4.7 mEq/L Arterial Blood Gas Delivery ROOM AIR [place] Test POS Test 01/01/17 07:39 01/01/17 08:30 01/01/17 11:25 Bedside Glucose 262 mg/dl 263 mg/dl Urine Color YELLOW Urine Appearance CLEAR Urine pH 8.0 Urine Specific [place] 1.017 Urine Protein NEG Urine Glucose (UA) NEG Urine Ketones NEG Urine Occult Blood NEG Urine Nitrite NEG Urine Bilirubin NEG Urine Urobilinogen NEG Urine Leukocyte Esterase SMALL Urine WBC (Auto) 5-10 /hpf Urine RBC (Auto) 0-4 /hpf Urine Hyaline Casts (Auto) 1-5 /lpf Urine Epithelial Cells (Auto) 10-20 /lpf Urine Bacteria (Auto) 1+ Urine Osmolality 399 mOms/kg Urine Random Creatinine 100.0 mg/dl Urine Random Sodium 38 mEq/L Urine Opiates Screen NEG Urine Methadone, Qualitative NEG Urine Barbiturates NEG Urine Phencyclidine (PCP) Level NEG Ur Amphetamine/Methamphetamine NEG MDMA (Ecstasy) Screen NEG Urine Benzodiazepines Screen NEG Urine Cocaine Metabolite NEG Urine Marijuana (THC) NEG Impression (1) Acute kidney failure (2) Stage 3 chronic kidney disease (3) Anemia (4) Hypertension (5) Diabetes (6) Constipation Noe Lanier Is a 76-year-old female with past medical history significant for hypertension, diabetes, stage 3 chronic kidney disease, bipolar disorder admit to the hospital with them abdominal pain and constipation. On admission she was found to have acute kidney injury creatinine 3.0, baseline creatinine around 1.5-1.7. No history of significant proteinuria. Renal imaging was negative for hydronephrosis. Acute kidney injury most likely secondary to prerenal etiology, fractional excretion of the sodium is less than 1, renal function started to improve with IV hydration. urine analysis otherwise unremarkable. Has history of bipolar disorder, has been on lithium, lithium level was in fact lower than therapeutic goal, 0.4. She was on losartan 100 at home which has been on hold since admission. No significant hypo or hypertensive episode. Recommendations --continue IV fluid, suggest decreasing to 100 mL/hour and discontinue once p.o. intake adequate -- with her current GFR, ideally lithium dose should be decreased however her lithium level was fine yesterday and if renal function continues to improve, we can keep her on her current dose, will repeat lithium level tomorrow -- continue to monitor renal function with daily renal panel, expect renal function will continue to improve --Will follow while inpatient, suggest holding discharge until at least creatinine less than 2 --she has a follow-up appointment with Dr. Cruz on 01/28/2017 Thank you for allowing me to participate in your patient's care. It was a pleasure to see Young. This chart was completed utilizing [employer] and voice recognition software. Grammatical errors, random word insertions, pronoun errors and incomplete sentences are occasional consequences of this system. Any questions or concerns about the content, text or information contained within the body of this dictation should be addressed directly to the physician for clarification.
--- NOTE | 2017-01-01 13:39 | Psychiatric Consultation ---
Consultation Date of Consultation Jan 01, 2017. (Mimi Sarmiento,ROSALVA) Identifying Data 76-year-old woman admitted to the hospital with acute on chronic renal failure. We are consulted to evaluate lithium therapy. (Mimi Sarmiento,ROSALVA) Chief Complaint "I have been perfect on lithium.". (Mimi Sarmiento,ROSALVA) History of Present Illness 76-year-old woman with medical conditions including insulin-dependent diabetes, hypertension, hypothyroidism, dyslipidemia, IBS with chronic constipation and history of breast cancer in 2004 who is admitted to the hospital with acute on chronic renal failure with a BUN of 70 and a creatinine of 2.7. We're consulted to to evaluate medications other than lithium for her bipolar. According to the patient, she has been on lithium and Seroquel for about the last 6 years and says that on that combination she has been "perfect" . She is attached to this medication regimen and is reticent to give it up. She says it has been years since she's had any kind of manic episode and she has had only days of depression without a prolonged episode. She does not remember any previous mood stabilizer trials. She indicates that her mood is generally been good. Her appetite is "not good" and has been losing an unspecified amount of weight. Her anxiety is "almost nothing". Her energy is okay. She denies ever having auditory or visual hallucinations. She denies suicidal or homicidal ideation. She indicates that she saw her regular provider , Dr. Jovanny Castillo 9 recently and due to her worsening renal values, he cut her lithium dosage in half from 300-150 mg at the end of November. I have spoken with Dr. Castillo by phone. He has reviewed his records to find that she has previously been tried on Abilify, Trileptal, Latuda, Invega and Lamictal. While on Lamictal, she did develop rashes. He discontinued this but recommended a retrial which she did not proceed with. He indicates he has tried to get her off of lithium multiple times over the years, however when the dosage gets low, she destabilizes psychiatrically. He also acknowledges that she has a somewhat neurotic style to her and is emotionally connected to lithium in a way that makes it difficult for her to think about giving it up. She has traditionally been resistant to trying new medications because of this as well. (Mimi Sarmiento,ROSALVA) Past Psychiatric History Current OP Treatment: psychiatrist (Dr. Castillo. Previously saw Dr. Alonzo) Prior OP Treatment: psychiatrist Prior Psych Hospitalizations: [facility]) Access to a Gun: No Suicide Attempts: No Past Medication Trials Prozac, Abilify (couldn't tolerate), Ativan, and vague, Trileptal, Latuda, Lamictal (rashes) (Mimi Sarmiento,ROSALVA) Past Medical/Surgical History History of Concussion/Seizure: No (1) Hypothyroidism (2) Constipation (3) Acute kidney failure (4) Stage 3 chronic kidney disease (5) Diabetes (6) Hypertension (Mimi Sarmiento NP) Allergies Allergies: Coded Allergies: Iodinated Diagnostic Agents (Verified Allergy, Severe, Anaphylaxis, ) Dust (Verified Allergy, Unknown, UNKNOWN, 12/31/16) Fungi (Verified Allergy, Unknown, UNKNOWN, 12/31/16) Molds and Smuts (Verified Allergy, Unknown, UNKNOWN, 12/31/16) POLLEN (Verified Allergy, Unknown, UNKNOWN, 12/31/16) Home Medications Scheduled Fenofibrate (Tricor), 145 MG PO DAILY Fish Oil ([place]-3), 2 CAP PO DAILY Insulin Aspart (Novolog Flexpen), 6 UNITS SQ with afternoon meal Insulin Aspart (Novolog Flexpen), 5 UNITS SQ with am & pm meal Insulin Glargine (Lantus Solostar), 12 UNITS SC QPM Insulin Isophane (Human) (Humulin N Kwikpen), 3 UNITS SC QPM Levothyroxine Sodium (Synthroid), 112 MCG PO DAILY [place] Carbonate ([place] Carbonate), 150 MG PO QPM Lorazepam (Ativan), 0.5 MG PO DAILY Losartan Potassium (Cozaar), 100 MG PO DAILY Multivitamins/Minerals (Mvi With Minerals), 1 TAB PO DAILY Pantoprazole (Protonix), 40 MG PO DAILY Quetiapine Fumarate Xr (Seroquel Xr Tab), 400 MG PO HS Family History Cancer Diabetes mellitus Hypertension History of Suicide: No History of Substance Abuse: No Psychiatric History: No (Mimi Sarmiento,ROSALVA) Cancer Diabetes mellitus Hypertension (Ally Beasley MD) Alcohol Use Alcohol Use In Past 12 Months: No (Mimi Sarmiento NP) Smoking Use Smoking Status: Never Smoker (Mimi Sarmiento NP) Substance History Denies (Mimi Sarmiento NP) Personal History Lives in: [place] with her Childhood: Grew up in [place], moved here in her early 20s to study at a university in [place]. 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) Children: 2 adult children Spiritual Affiliation: Synagogue Legal History: none Psychological Trauma History: Denies Hx Traumatic Event (Mimi Sarmiento NP) Review of Systems Constitutional: denies no symptoms reported, denies see HPI, denies chills, denies diaphoresis, denies fever, denies malaise, denies weakness, denies other Eyes: denies: no symptoms, as stated in HPI, eye pain, tearing, itching, redness, discharge, double vision, visual changes, blurred vision, photophobia, other ENT: denies: no symptoms reported, see HPI, ear pain, ear discharge, loss of hearing, tinnitus, nasal pain, nasal congestion, rhinorrhea, epistaxis, sore throat, stidor, throat swelling, mouth pain, mouth swelling, dental pain, gum swelling, other Cardiovascular: denies: no symptoms reported, see HPI, chest pain, chest tightness, chest pressure, diaphoresis, palpitations, syncope, other Respiratory: denies: no symptoms reported, see HPI, cough, orthopnea, short of breath, stridor, wheezing, sputum production, cyanosis, SIMMONS, PND, other Gastrointestinal: constipation (chronic) Genitourinary - Female: denies: no symptoms, see HPI, rash, amenorrhea, dysmenorrhea, menorrhagia, metrorrhagia, , vaginal bleeding, vaginal itching, vaginal discharge, vulvadynia, other Musculoskeletal: denies no symptoms reported, denies see HPI, denies back pain , denies gout, denies joint pain, denies joint swelling, denies muscle pain, denies muscle stiffness, denies neck pain, denies other Integumentary: denies no symptoms reported, denies see HPI, denies change in color, denies change in hair/nails, denies dryness, denies lesions, denies lumps , denies rash, denies other Neurologic: reports: other (right facial tic) Endocrine: denies: no symptoms, as stated in HPI, cold intolerance, heat intolerance, hair changes, goiter, polydipsia, polyuria, skin changes, other Hematologic / Lymphatic: denies: no symptoms, as stated in HPI, abnormal clotting, adenopathy, anemia, easy bleeding, easy bruising, gums bleeding, petechiae, other (Mimi Sarmiento,QUALITY ASSURANCE LEAD) Examination Physical Examination As per Dr. Trevino (Mimi Sarmiento,QUALITY ASSURANCE LEAD) Vital Signs Vital Signs Past 12 Hours Date Time Temp Pulse Resp B/P (MAP) Pulse Ox O2 Delivery O2 Flow Rate FiO2 01/01/17 03:03 37.0 82 20 148/71 95 Room Air 01/01/17 01:59 82 18 121/74 96 Room Air 01/01/17 01:15 84 18 96 Room Air (Mimi Sarmiento,QUALITY ASSURANCE LEAD) Laboratory Results Last 24 Hours Test 12/31/16 23:40 01/01/17 05:08 01/01/17 06:04 01/01/17 06:44 White Blood Count 7.82 K/uL Red Blood Count 4.05 M/uL Hemoglobin 11.7 g/dL Hematocrit 36.9 % Mean Corpuscular Volume 91.1 fL Mean Corpuscular Hemoglobin 28.9 pg Mean Corpuscular Hemoglobin Concent 31.7 g/dl Platelet Count 440 K/uL Mean Platelet Volume 10.4 fL Neutrophils (%) (Auto) 63.7 % Lymphocytes (%) (Auto) 29.4 % Monocytes (%) (Auto) 6.0 % Eosinophils (%) (Auto) 0.5 % Basophils (%) (Auto) 0.1 % Neutrophils # (Auto) 4.98 K/uL Lymphocytes # (Auto) 2.30 K/uL Monocytes # (Auto) 0.47 K/uL Eosinophils # (Auto) 0.04 K/uL Basophils # (Auto) 0.01 K/uL RDW Standard Deviation 43.5 fL RDW Coefficient of Variation 13.0 % Immature Granulocyte % (Auto) 0.3 % Immature Granulocyte # (Auto) 0.02 K/uL Sodium Level 135 mmol/L 136 mmol/L Potassium Level 4.3 mmol/L 3.8 mmol/L Chloride Level 92 mmol/L 96 mmol/L Carbon Dioxide Level 38 mmol/L 34 mmol/L Anion Gap 5.0 mmol/L 6.0 mmol/L Blood Urea Nitrogen 69 mg/dl 70 mg/dl Creatinine 3.00 mg/dl 2.70 mg/dl Est Creatinine Clear Calc Drug Dose 12.8 ml/min 14.2 ml/min Estimated GFR () 16.6 18.8 Estimated GFR (Non- 14.3 16.2 BUN/Creatinine Ratio 23.1 26.0 Random Glucose 105 mg/dl 212 mg/dl Calcium Level 9.9 mg/dl 9.2 mg/dl Total Bilirubin 0.3 mg/dl Direct Bilirubin < 0.1 mg/dl Aspartate Amino Transf (AST/SGOT) 31 U/L Alanine Aminotransferase (ALT/SGPT) 21 U/L Alkaline Phosphatase 118 U/L Total Protein 7.9 gm/dl Albumin 4.2 gm/dl Lipase 782 U/L Thyroid Stimulating Hormone (TSH) 3.950 uIu/ml [place] Level 0.4 mMOL/L Prothrombin Time 10.3 SECONDS Prothromb Time International Ratio 1.0 Estimated Average Glucose 148 mg/dl Hemoglobin A1c 6.8 % Osmolality 313 mOsm/kg Bedside Glucose 188 mg/dl Arterial Blood pH 7.47 Arterial Blood Partial Pressure CO2 41 mmHg Arterial Blood Partial Pressure O2 89 mm/Hg Arterial Blood HCO3 29 mmol/L Arterial Blood Oxygen Saturation 96.7 % Arterial Blood Base Excess 4.7 mEq/L Arterial Blood Gas Delivery ROOM AIR Howard Test POS Test 01/01/17 07:39 01/01/17 08:30 01/01/17 11:25 Bedside Glucose 262 mg/dl 263 mg/dl Urine Color YELLOW Urine Appearance CLEAR Urine pH 8.0 Urine Specific [place] 1.017 Urine Protein NEG Urine Glucose (UA) NEG Urine Ketones NEG Urine Occult Blood NEG Urine Nitrite NEG Urine Bilirubin NEG Urine Urobilinogen NEG Urine Leukocyte Esterase SMALL Urine WBC (Auto) 5-10 /hpf Urine RBC (Auto) 0-4 /hpf Urine Hyaline Casts (Auto) 1-5 /lpf Urine Epithelial Cells (Auto) 10-20 /lpf Urine Bacteria (Auto) 1+ Urine Osmolality 399 mOms/kg Urine Random Creatinine 100.0 mg/dl Urine Random Sodium 38 mEq/L Urine Opiates Screen NEG Urine Methadone, Qualitative NEG Urine Barbiturates NEG Urine Phencyclidine (PCP) Level NEG Ur Amphetamine/Methamphetamine NEG MDMA (Ecstasy) Screen NEG Urine Benzodiazepines Screen NEG Urine Cocaine Metabolite NEG Urine Marijuana (THC) NEG (Mimi Sarmiento NP) Mental Examination During interview pt is: alert and oriented, cooperative Appearance: appropriately groomed Eye contact is: good Motor behavior is: psychomotor agitation (mild), other (right facial tic) Speech: normal in rate, rhythm & volume Affect: anxious Mood is: anxious Thought process: perseveration (on not wanting to lose her lithium) Thought content: reality based without delusions Suicidal thought are: denied Homicidal thoughts are: denied Hallucinations: denies auditory, denies visual Cognition: memory grossly intact, attention grossly intact, language grossly intact Intelligence estimated to be: average Insight: poor Judgement: poor (Mimi Sarmiento NP) Impression / Recommendations Impression 76-year-old woman with bipolar disorder, admitted to the hospital with acute on chronic renal failure. We are consulted to evaluate alternatives to lithium therapy. The patient is emotionally attached to the lithium and has tended to give it up, however with the progression of her renal disease recommend discontinuation. I have talked with her regular psychiatrist, Dr. Castillo 9, to discuss her options and we are agreed that she should retrial Lamictal starting at 25 mg daily increasing by 25 mg per week. We will continue Seroquel 400 mg at bedtime. She has had a rash while on Lamictal in the past, however it is standard retrial after the rash disappears which the patient did not do previously as instructed. She has appointment with Dr. Castillo next week on January 09 at 3:20. In view of her high anxiety about the discontinuation of lithium, we will also recommend increasing Ativan to 0.5 mg twice a day until seen by her outpatient provider. She does not meet criteria for inpatient mental health treatment at this time. (Mimi Sarmiento NP) Inventory Assets Strengths: , strong martita (Mimi Sarmiento NP) Risk Factors Assessment : No /single/: No Higher / Fall in social status: No Access to guns: No Health problems: Yes Mental Health Diagnoses: Yes Substance use disorders: No Previous attempt: No Previous psychiatric stay: Yes Hopelessness: No Smoker: No (Mimi Sarmiento,ROSALVA) Protective Factors Assessment Mandaeism beliefs: Yes : Yes Responsible for young children: No Employed: No Stable relationships: Yes Supportive family: Yes Good rapport with provider: Yes (Mimi Sarmiento,QUALITY ASSURANCE LEAD) Recommendations (1) BIPOL I, MOST RECENT EPISODE (OR CURRENT) UNSPECIFIED 01/01 -In view of acute on chronic renal failure, will recommend discontinuation of lithium -Will recommend a retrial of Lamictal starting with 25 mg per week until seen by her outpatient psychiatrist next week on the . R/B/A reviewed, including risk for SJS. -Will also recommend increasing Ativan to 0.5 mg twice a day in view of her high anxiety about coming off of lithium. -Patient has appointment with Dr. Castillo next week on the at 3:20 - Specifically instructed to stop taking the lamictal and to call Dr. Castillo if she develops a rash. She was able to repeat that back to me. Has been reviewed with Dr. Beasley (Mimi Sarmiento,QUALITY ASSURANCE LEAD)
[2017-01-01] MEDS: INSULIN ASPART 100 UNITS/ML 3 ML PEN SC SCH ×3 (13:44→20:56)
[2017-01-01 14:31] VITALS: BP_SYST 153; BP_SYST 185; BP_DIAS 83; BP_DIAS 91; PULSE 83; TEMP 36.8; O2SAT 98
--- NOTE | 2017-01-01 18:23 | Family Medicine Progress Note ---
Progress Note Date of Service Jan 01, 2017. Subjective Pt evaluation today including: conversation w/ patient, physical exam, chart review, lab review, review of inpatient medication list Pain: No pain reported PO Intake: Tolerating PO intake Voiding: no voiding problems Ms. Lanier is a 76 year old female who presented to the ER with constipation and abdominal pain, which has now resolved. Initially, she was sound asleep and neither myself nor the nurses were able to rouse her. She was not responsive to voice or touch. She responded to pain by withdrawing and localizing the stimulus but would not open her eyes. Upon second visit, Ms. Lanier was awake, alert and oriented, although unsure of the exact date and which hospital she was at. Her primary concern was receiving her Nephi as she states that on November 14, 2016, Dr. Castillo stopped her Nephi for 4 days due to his concerns about her kidney function. She, however, felt very sick afterwards, but is unable to describe this, and he then restarted her Nephi at the same dose. She states that she last saw Dr. Castillo a month ago and will be seeing him at the end of this month. She denies any pain, difficulty breathing, headaches, increased thirst, urinary frequency or dysuria. She reports no problems with her bowel movements, or urinary symptoms. She repeatedly states that she would like to go home. Medications Current Inpatient Medications Medications (Trade) Dose Ordered Sig/Gin Route Start Time Stop Time Status Last Admin Dose Admin Acetaminophen (Tylenol Tab) 650 mg Q4H PRN PO 01/01/17 01:30 01/31/17 01:29 Ondansetron HCl (Zofran Inj) 4 mg Q6H PRN IV 01/01/17 01:30 01/31/17 01:29 Heparin Sodium (Porcine) (Heparin Sq 5000 Unit/0.5ml) 5,000 unit Q12 SQ 01/01/17 09:00 01/31/17 08:59 Insulin Glargine (Lantus Solostar Pen) 6 units Q12H SC 01/01/17 09:00 01/31/17 08:59 Insulin Aspart (novoLOG ASPART) SLIDING SCALE If C... ACHS SC 01/01/17 06:30 01/31/17 06:59 UNV Glucose (Glucose 40% Gel) 15-30 GRAMS 15 GRAMS... UD PRN PO 01/01/17 01:30 01/31/17 01:29 Glucose (Glucose Chew Tab) 4-8 Tablets 4 Tabl... UD PRN PO 01/01/17 01:30 01/31/17 01:29 Dextrose (Dextrose 50% 50ML Syringe) 25-50ML OF 50% DW IV FOR... UD PRN IV 01/01/17 01:30 01/31/17 01:29 Glucagon (Glucagon Inj) 1 mg UD PRN SQ 01/01/17 01:30 01/31/17 01:29 Fenofibrate (Tricor Tab) 145 mg DAILY PO 01/01/17 09:00 01/31/17 08:59 Levothyroxine Sodium (Synthroid Tab) 112 mcg DAILYBB PO 01/01/17 06:30 01/31/17 06:29 Lorazepam (Ativan Tab) 0.5 mg DAILY PO 01/01/17 09:00 01/31/17 08:59 Multivitamins/ Minerals (Multivitamin W/ Minerals Tab) 1 tab DAILY PO 01/01/17 09:00 01/31/17 08:59 Pantoprazole Sodium (Protonix Tab) 40 mg DAILY PO 01/01/17 09:00 01/31/17 08:59 Quetiapine Fumarate (seroQUEL XR TAB) 400 mg HS PO 01/01/17 21:00 01/31/17 20:59 [place] Carbonate ([place] Carbonate Tab) 150 mg QPM PO 01/01/17 21:00 01/31/17 20:59 Miscellaneous (Iv Fluids Completed) 1 ea PRN PRN N/A 01/01/17 02:45 01/01/18 02:44 Sodium Chloride 1,000 ml @ 200 mls/hr Q5H IV 01/01/17 03:15 01/31/17 03:14 01/01/17 04:21 200 MLS/HR Objective Physical Exam General Appearance: WD/WN, no apparent distress Neck: supple, no adenopathy Respiratory/Chest: chest non-tender, lungs clear, normal breath sounds, no respiratory distress, no accessory muscle use Cardiovascular: regular rate, rhythm, no edema, no gallop, no JVD, no murmur Abdomen: normal bowel sounds, non tender, soft, no organomegaly, no pulsatile mass Neurologic/Psychiatric: alert Laboratory Results 12/31/16 23:40 Red Blood Count 4.05, Mean Corpuscular Volume 91.1, Mean Corpuscular Hemoglobin 28.9, Mean Corpuscular Hemoglobin Concent 31.7, Mean Platelet Volume 10.4, Neutrophils (%) (Auto) 63.7, Lymphocytes (%) (Auto) 29.4, Monocytes (%) (Auto) 6.0, Eosinophils (%) (Auto) 0.5, Basophils (%) (Auto) 0.1, Neutrophils # (Auto) 4.98, Lymphocytes # (Auto) 2.30, Monocytes # (Auto) 0.47, Eosinophils # (Auto) 0.04, Basophils # (Auto) 0.01 01/01/17 05:08 Test 12/31/16 23:40 01/01/17 05:08 01/01/17 06:44 01/01/17 08:30 White Blood Count 7.82 K/uL (4.8-10.8) Red Blood Count 4.05 M/uL (4.2-5.4) Hemoglobin 11.7 g/dL (12.0-16.0) Hematocrit 36.9 % (37-47) Mean Corpuscular Volume 91.1 fL (80-100) Mean Corpuscular Hemoglobin 28.9 pg (25-34) Mean Corpuscular Hemoglobin Concent 31.7 g/dl (32-36) Platelet Count 440 K/uL (130-400) Mean Platelet Volume 10.4 fL (7.4-10.4) Neutrophils (%) (Auto) 63.7 % Lymphocytes (%) (Auto) 29.4 % Monocytes (%) (Auto) 6.0 % Eosinophils (%) (Auto) 0.5 % Basophils (%) (Auto) 0.1 % Neutrophils # (Auto) 4.98 K/uL (1.4-6.5) Lymphocytes # (Auto) 2.30 K/uL (1.2-3.4) Monocytes # (Auto) 0.47 K/uL (0.11-0.59) Eosinophils # (Auto) 0.04 K/uL (0-0.5) Basophils # (Auto) 0.01 K/uL (0-0.2) RDW Standard Deviation 43.5 fL (36.4-46.3) RDW Coefficient of Variation 13.0 % (11.5-14.5) Immature Granulocyte % (Auto) 0.3 % Immature Granulocyte # (Auto) 0.02 K/uL (0.00-0.02) Total Bilirubin 0.3 mg/dl (0.2-1) Direct Bilirubin < 0.1 mg/dl (0-0.2) Aspartate Amino Transf (AST/SGOT) 31 U/L (15-37) Alanine Aminotransferase (ALT/SGPT) 21 U/L (12-78) Alkaline Phosphatase 118 U/L (45-117) Total Protein 7.9 gm/dl (6.4-8.2) Albumin 4.2 gm/dl (3.4-5.0) Lipase 782 U/L (73-393) Thyroid Stimulating Hormone (TSH) 3.950 uIu/ml (0.300-4.500) [place] Level 0.4 mMOL/L (0.6-1.2) Prothrombin Time 10.3 SECONDS (9.0-12.0) Prothromb Time International Ratio 1.0 (0.9-1.1) Anion Gap 6.0 mmol/L (3-11) Est Creatinine Clear Calc Drug Dose 14.2 ml/min Estimated GFR () 18.8 Estimated GFR (Non- 16.2 BUN/Creatinine Ratio 26.0 (10-20) Estimated Average Glucose 148 mg/dl Hemoglobin A1c 6.8 % (4.5-5.6) Osmolality 313 mOsm/kg (280-300) Calcium Level 9.2 mg/dl (8.5-10.1) Arterial Blood pH 7.47 (7.35-7.45) Arterial Blood Partial Pressure CO2 41 mmHg (35-46) Arterial Blood Partial Pressure O2 89 mm/Hg (80-95) Arterial Blood HCO3 29 mmol/L (19-24) Arterial Blood Oxygen Saturation 96.7 % (90-95) Arterial Blood Base Excess 4.7 mEq/L (-9-1.8) Arterial Blood Gas Delivery ROOM AIR Howard Test POS (POS) Urine Color YELLOW Urine Appearance CLEAR (CLEAR) Urine pH 8.0 (4.5-7.5) Urine Specific [place] 1.017 (1.000-1.030) Urine Protein NEG (NEG) Urine Glucose (UA) NEG (NEG) Urine Ketones NEG (NEG) Urine Occult Blood NEG (NEG) Urine Nitrite NEG (NEG) Urine Bilirubin NEG (NEG) Urine Urobilinogen NEG (NEG) Urine Leukocyte Esterase SMALL (NEG) Urine WBC (Auto) 5-10 /hpf (0-5) Urine RBC (Auto) 0-4 /hpf (0-4) Urine Hyaline Casts (Auto) 1-5 /lpf (0-5) Urine Epithelial Cells (Auto) 10-20 /lpf (0-5) Urine Bacteria (Auto) 1+ (NEG) Urine Osmolality 399 mOms/kg (500-800) Urine Random Creatinine 100.0 mg/dl Urine Random Sodium 38 mEq/L Urine Opiates Screen NEG (NEG) Urine Methadone, Qualitative NEG (NEG) Urine Barbiturates NEG (NEG) Urine Phencyclidine (PCP) Level NEG (NEG) Ur Amphetamine/Methamphetamine NEG (NEG) MDMA (Ecstasy) Screen NEG (NEG) Urine Benzodiazepines Screen NEG (NEG) Urine Cocaine Metabolite NEG (NEG) Urine Marijuana (THC) NEG (NEG) Test 01/01/17 17:55 Bedside Glucose 91 mg/dl (70-90) Assessment and Plan Drowsiness - Ms. Lanier did not respond to both vocal and tactile stimulation this morning - was very difficult to rouse - states that she has not been sleeping well recently - UA likely contaminated as shows several epithelial cells - waiting for urine culture - tox screen negative Acute on Chronic Kidney Injury - her baseline creatinine is 1.7 and it is now 2.7 - Thank you to Dr. Velázquez for nephro consult - recommends decreasing IVF to 100 mL/hour and discontinuing once p.o. intake adequate and to hold d/c until creatinine below 2. Nephro will continue to follow with daily renal profiles - losartan held and will monitor blood pressure - she has a follow-up appointment with Dr. Cruz on 01/28/2017, - Nephi held as per psych consult and Ms. Lanier was started on Lamictal 25mg instead Agitation - Ativan increased to 0.5mg BID PRN Bipolar - Thank you to Dr. Sarmiento for psychiatric evaluation - as per recommendations, stop lithium, start lamictal at 25mg and titrate up weekly - continue regular dose of seroquel and ativan increased to 0.5mg BID PRN Diabetes - on insulin sliding scale - monitoring sugars - were high on admission and have now decreased Hypothyroidism - continue levothyroxine Hypercholesterolemia - continue fenofibrate Her daughter, Alysa Lanier, was updated on Ms. Lanier's status and medication changes. VTE: Heparin 5000 units SC Q12H DISPO: med/surg CODE STATUS: Full Resident Tracking Resident Involvement: Resident Care Provided Care Provided: Adult Hospital Medicine History Resident Physician Supervision Note: I was present with Dr. Walsh during the history and exam. I discussed the case with the resident and agree with the findings and plan as documented in the note. Any exceptions or clarifications are listed here. Pt resting in bed unresponsive to verbal stimuli, though had been able to wake easily for meals and to use the restroom previously per nursing. After applying noxious stimuli, the patient roused easily and was very lucid - She reported no abd pain, constipation, ZAVALA, lightheadedness, chest pain, palpitations, leg swelling, sensation changes. General Appearance: WD/WN, no apparent distress Respiratory: chest non-tender, lungs clear, normal breath sounds, no respiratory distress Cardiovascular: normal peripheral pulses, regular rate, rhythm, no edema, no murmur Gastrointestinal: normal bowel sounds, non tender, soft, no organomegaly Assessment/Plan 76 y/o female h/o bipolar d/o, CKD admitted for YEVGENIY on CKD Delirium - like uncooperative but w/ potential underlying UTI complicating - f/ u UCx, underlying issue management as below YEVGENIY on CKD - nephrology aware and recommendations appreciated - gentle fluid management w/ d/c lithium and monitoring Cr for improvement Bipolar D/O - psychiatry aware and recommendations appreciated - d/c'd lithium, started lamictal w/ upward titration and good follow up; ativan PRN agitation DMII - presently on ISS, monitor and adjust Hypothyroidism - continue synthroid HLD - continue fenofibrate FULL CODE
[2017-01-01] MEDS ORDERED: QUETIAPINE FUMARATE 200 MG TABCR PO SCH (21:00)
[2017-01-01] MEDS ORDERED: LITHIUM CARBONATE 300 MG TAB PO SCH (21:00)
[2017-01-01] MEDS: LORAZEPAM 0.5 MG TAB PO PRN (21:53)
[2017-01-02] MEDS: SODIUM CHLORIDE 0.9% 1000ML 1,000 ML IV SCH ×2 (00:04→04:47)
[2017-01-02 00:19] VITALS: BP_SYST 107; BP_SYST 146; BP_DIAS 70; BP_DIAS 79; PULSE 49; PULSE 80; TEMP 37.1; O2SAT 91; O2SAT 98
[2017-01-02] MEDS: LEVOTHYROXINE 112 MCG TAB PO SCH (05:39)
[2017-01-02 07:03] LABS: BUN/CREATININE RATIO 24.8 (10-20); CALCIUM 8.9 mg/dl (8.5-10.1); CREATININE 1.8 mg/dl (0.60-1.20); PHOSPHORUS 2.9 mg/dl (2.5-4.9); POTASSIUM 4.2 mmol/L (3.5-5.1)
[2017-01-02 07:48] VITALS: BP 156/70; PULSE 64; TEMP 36.5; O2SAT 97
[2017-01-02 08:00] VITALS: O2SAT 97
[2017-01-02] MEDS: CEROVITE ADV FORMULA TAB PO SCH (08:02)
[2017-01-02] MEDS: PANTOprazole SOD 40 MG TAB PO SCH (08:03)
[2017-01-02] MEDS: FENOFIBRATE 145 MG TAB PO SCH (08:03)
[2017-01-02] MEDS: INSULIN ASPART 100 UNITS/ML 3 ML PEN SC SCH ×3 (08:04→16:30)
[2017-01-02] MEDS: INSULIN GLARGINE SOLOSTAR 100 UNITS/ML 3 ML PEN SC SCH (08:09)
[2017-01-02] MEDS: HEPARIN SOD 5000 UNIT/0.5 ML CARP SQ SCH (08:10)
--- NOTE | 2017-01-02 10:09 | Nephrology Progress Note ---
Nephrology Progress Note Date of Service Jan 02, 2017. Chief Complaint Follow-up for acute kidney injury with history of chronic kidney disease.. Macarena Liu was seen and examined in her room this morning. She has been otherwise feeling well. She denies any shortness of breath or chest pain. Her p.o. intake has improved. renal function improved significantly to creatinine 1.8 this morning. Blood pressure slightly elevated. has decent urine output. Review of Systems A complete review of systems was performed. Pertinent positives are noted above. All other systems are negative. Vital Signs Last 8 Hrs Date Time Temp Pulse Resp B/P (MAP) Pulse Ox O2 Delivery O2 Flow Rate FiO2 01/02/17 07:48 36.5 64 20 156/70 (98) 97 Room Air 01/02/17 04:00 Room Air 01/02/17 00:19 37.1 80 17 146/79 (101) 98 Room Air Last Recorded Weight Weight (Kilograms): 52.500 Physical Exam GENERAL: Elderly female, AAA x 3, pleasant, healthy-appearing, not in any distress. NECK: Supple, no JVD. RESPIRATORY: Normal breathing efforts, no accessory muscle use, clear to auscultation bilaterally, no wheezes or rales. CARDIOVASCULAR: S1, S2 normal, rate rhythm regular. EXTREMITY: No lower extremity edema NEURO: speech fluent. PSYCHIATRY: Normal mood and judgment Family History Cancer Diabetes mellitus Hypertension Social History Smoking Status: Never smoker Drug Use: none Marital Status: Housing Status: lives with family Occupation: unemployed Laboratory Results Past 24 Hours 01/02/17 05:33 Test 01/01/17 08:30 01/01/17 11:25 01/01/17 16:45 01/01/17 17:13 Urine Color YELLOW Urine Appearance CLEAR (CLEAR) Urine pH 8.0 (4.5-7.5) Urine Specific [place] 1.017 (1.000-1.030) Urine Protein NEG (NEG) Urine Glucose (UA) NEG (NEG) Urine Ketones NEG (NEG) Urine Occult Blood NEG (NEG) Urine Nitrite NEG (NEG) Urine Bilirubin NEG (NEG) Urine Urobilinogen NEG (NEG) Urine Leukocyte Esterase SMALL (NEG) Urine WBC (Auto) 5-10 /hpf (0-5) Urine RBC (Auto) 0-4 /hpf (0-4) Urine Hyaline Casts (Auto) 1-5 /lpf (0-5) Urine Epithelial Cells (Auto) 10-20 /lpf (0-5) Urine Bacteria (Auto) 1+ (NEG) Urine Osmolality 399 mOms/kg (500-800) Urine Random Creatinine 100.0 mg/dl Urine Random Sodium 38 mEq/L Urine Opiates Screen NEG (NEG) Urine Methadone, Qualitative NEG (NEG) Urine Barbiturates NEG (NEG) Urine Phencyclidine (PCP) Level NEG (NEG) Ur Amphetamine/Methamphetamine NEG (NEG) MDMA (Ecstasy) Screen NEG (NEG) Urine Benzodiazepines Screen NEG (NEG) Urine Cocaine Metabolite NEG (NEG) Urine Marijuana (THC) NEG (NEG) Bedside Glucose 263 mg/dl (70-90) 59 mg/dl (70-90) 60 mg/dl (70-90) Test 01/01/17 17:55 01/01/17 20:21 01/02/17 05:33 01/02/17 07:37 Bedside Glucose 91 mg/dl (70-90) 137 mg/dl (70-90) 75 mg/dl (70-90) Anion Gap 4.0 mmol/L (3-11) Est Creatinine Clear Calc Drug Dose 21.3 ml/min Estimated GFR () 30.7 Estimated GFR (Non- 26.5 BUN/Creatinine Ratio 24.8 (10-20) Calcium Level 8.9 mg/dl (8.5-10.1) Phosphorus Level 2.9 mg/dl (2.5-4.9) Albumin 3.2 gm/dl (3.4-5.0) [place] Level 0.3 mMOL/L (0.6-1.2) Allergies Coded Allergies: Iodinated Diagnostic Agents (Verified Allergy, Severe, Anaphylaxis, ) Dust (Verified Allergy, Unknown, UNKNOWN, 12/31/16) Fungi (Verified Allergy, Unknown, UNKNOWN, 12/31/16) Molds and Smuts (Verified Allergy, Unknown, UNKNOWN, 12/31/16) POLLEN (Verified Allergy, Unknown, UNKNOWN, 12/31/16) Medications Current Inpatient Medications Medications (Trade) Dose Ordered Sig/Gin Route Start Time Stop Time Status Last Admin Dose Admin Acetaminophen (Tylenol Tab) 650 mg Q4H PRN PO 01/01/17 01:30 01/31/17 01:29 Ondansetron HCl (Zofran Inj) 4 mg Q6H PRN IV 01/01/17 01:30 01/31/17 01:29 Heparin Sodium (Porcine) (Heparin Sq 5000 Unit/0.5ml) 5,000 unit Q12 SQ 01/01/17 09:00 01/31/17 08:59 01/01/17 09:38 5,000 UNIT Insulin Glargine (Lantus Solostar Pen) 6 units Q12H SC 01/01/17 09:00 01/31/17 08:59 01/01/17 21:15 6 UNITS Insulin Aspart (novoLOG ASPART) SLIDING SCALE If C... ACHS SC 01/01/17 11:00 01/31/17 10:59 01/01/17 13:44 6 UNITS Glucose (Glucose 40% Gel) 15-30 GRAMS 15 GRAMS... UD PRN PO 01/01/17 01:30 01/31/17 01:29 Glucose (Glucose Chew Tab) 4-8 Tablets 4 Tabl... UD PRN PO 01/01/17 01:30 01/31/17 01:29 Dextrose (Dextrose 50% 50ML Syringe) 25-50ML OF 50% DW IV FOR... UD PRN IV 01/01/17 01:30 01/31/17 01:29 Glucagon (Glucagon Inj) 1 mg UD PRN SQ 01/01/17 01:30 01/31/17 01:29 Fenofibrate (Tricor Tab) 145 mg DAILY PO 01/01/17 09:00 01/31/17 08:59 01/01/17 09:36 145 MG Levothyroxine Sodium (Synthroid Tab) 112 mcg DAILYBB PO 01/01/17 06:30 01/31/17 06:29 01/02/17 05:39 112 MCG Multivitamins/ Minerals (Multivitamin W/ Minerals Tab) 1 tab DAILY PO 01/01/17 09:00 01/31/17 08:59 01/01/17 09:35 1 TAB Pantoprazole Sodium (Protonix Tab) 40 mg DAILY PO 01/01/17 09:00 01/31/17 08:59 01/01/17 09:35 40 MG Quetiapine Fumarate (seroQUEL XR TAB) 400 mg HS PO 01/01/17 21:00 01/31/17 20:59 01/01/17 21:14 400 MG Miscellaneous (Iv Fluids Completed) 1 ea PRN PRN N/A 01/01/17 02:45 01/01/18 02:44 Sodium Chloride 1,000 ml @ 100 mls/hr Q10H IV 01/01/17 03:15 01/31/17 03:14 01/02/17 04:47 200 MLS/HR Lamotrigine (Lamictal Tab) 25 mg QAM PO 01/02/17 09:00 02/01/17 08:59 Lorazepam (Ativan Tab) 0.5 mg BID PRN PO 01/01/17 13:45 01/31/17 13:44 01/01/17 21:53 0.5 MG Impression (1) Acute kidney failure (2) Stage 3 chronic kidney disease (3) Anemia (4) Hypertension (5) Diabetes (6) Constipation Noe Lanier Is a 76-year-old female with past medical history significant for hypertension, diabetes, stage 3 chronic kidney disease, bipolar disorder admit to the hospital with them abdominal pain and constipation. On admission she was found to have acute kidney injury creatinine 3.0, baseline creatinine around 1.5-1.7. No history of significant proteinuria. Renal imaging was negative for hydronephrosis. Acute kidney injury most likely secondary to prerenal etiology, fractional excretion of the sodium is less than 1, renal function started to improve with IV hydration. urine analysis otherwise unremarkable. Has history of bipolar disorder, has been on lithium, lithium level was in fact lower than therapeutic goal, 0.4. She was on losartan 100 at home which has been on hold since admission. No significant hypo or hypertensive episode. Recommendations -- discontinue IV fluid -- continue to monitor renal function with daily renal panel, currently she is pretty close to her baseline, expect renal function will continue to improve -- okay to be discharged with outpatient lab monitoring 2-3 days after discharge --she has a follow-up appointment with Dr. Cruz on 01/28/2017
--- NOTE | 2017-01-02 12:13 | Psychiatric Progress Notes ---
Progress Note Date of Service Jan 02, 2017. Interval History 76 yo woman admitted with ARF. Consult requested to evaluate alternatives to lithium Chief Complaint "I want to go home.". Subjective Patient was seen & assessed interval progress reviewed. The patient says that she is feeling better and wants to go home today. She tolerated her first doses of lamictal without problems and specifically no rash reported. She admits that she was worried about switching medicines, but is now hopeful the changes will be able to keep her bipolar stable. She feels calmer today, and is worried about her who is deaf and cannot hear the phone when it rings. No SI, no hallucinations. Review of Systems Constitutional: No fever, No chills, No sweats, No weight loss, No weakness, No fatigue, No problem reported ENT: No hearing loss, No unusual epistaxis, No nasal symptoms, No sore throat, No tinnitus, No dental problems, No trouble swallowing, No problem reported Respiratory: No cough, No sputum, No wheezing, No shortness of breath, No dyspnea on exertion, No dyspnea at rest, No hemoptysis, No problem reported Cardiovascular: No chest pain, No orthopnea, No PND, No edema, No claudication , No palpitations, No problem reported Abdomen: + constipation Musculoskeletal: No joint pain, No muscle pain, No swelling, No calf pain, No problem reported Neurologic: No memory loss, No paralysis, No weakness, No numbness/tingling, No vertigo, No balance problems, No problem reported Psychiatric: + anxiety Integumentary: No rash, No itch, No new/changing skin lesions, No color change , No bleeding, No problem reported Mental Status Exam During interview pt is: alert and oriented, cooperative Appearance: appropriately groomed Eye contact is: good Motor behavior is: psychomotor agitation (mild), other (right facial tic) Speech: normal in rate, rhythm & volume Affect: anxious Mood is: anxious Thought process: perseveration (on not wanting to lose her lithium) Thought content: reality based without delusions Suicidal thought are: denied Homicidal thoughts are: denied Hallucinations: denies auditory, denies visual Cognition: memory grossly intact, attention grossly intact, language grossly intact Intelligence estimated to be: average Insight: poor Judgement: poor Impression 76-year-old woman with bipolar disorder, admitted to the hospital with acute on chronic renal failure. We are consulted to evaluate alternatives to lithium therapy. The patient is emotionally attached to the lithium and has tended to give it up, however with the progression of her renal disease recommend discontinuation. I have talked with her regular psychiatrist, Dr. Castillo 9, to discuss her options and we are agreed that she should retrial Lamictal starting at 25 mg daily increasing by 25 mg per week. We will continue Seroquel 400 mg at bedtime. She has had a rash while on Lamictal in the past, however it is standard retrial after the rash disappears which the patient did not do previously as instructed. She has appointment with Dr. Castillo next week on January 09 at 3:20. In view of her high anxiety about the discontinuation of lithium, we will also recommend increasing Ativan to 0.5 mg twice a day until seen by her outpatient provider. She does not meet criteria for inpatient mental health treatment at this time. Plan (1) BIPOL I, MOST RECENT EPISODE (OR CURRENT) UNSPECIFIED 01/01 -In view of acute on chronic renal failure, will recommend discontinuation of lithium -Will recommend a retrial of Lamictal starting with 25 mg per week until seen by her outpatient psychiatrist next week on the . R/B/A reviewed, including risk for SJS. -Will also recommend increasing Ativan to 0.5 mg twice a day in view of her high anxiety about coming off of lithium. -Patient has appointment with Dr. Castillo next week on the at 3:20 - Specifically instructed to stop taking the lamictal and to call Dr. Castillo if she develops a rash. She was able to repeat that back to me. 01/02 - Continue with current plan - OK for discharge from a psychiatric standpoint Has been reviewed with Dr. Beasley Discharge / Aftercare Planning Psychiatrist: Name: Dr. Castillo Date of Appointment: Jan 09, 2017 Time of Appointment: 3:20 pm Appointment Notes: Please call to reschedule if you are unable to make this appointment Visit Code E&M Code: 51166 Inventory Assets Strengths: , strong martita Risk Factors Assessment : No /single/: No Higher / Fall in social status: No Health problems: Yes Mental Health Diagnoses: Yes Substance use disorders: No Previous attempt: No Previous psychiatric stay: Yes Hopelessness: No Smoker: No Protective Factors Assessment Christianity beliefs: Yes : Yes Responsible for young children: No Employed: No Stable relationships: Yes Supportive family: Yes Good rapport with provider: Yes Data Vital Signs Last 24 Hrs: Date Time Temp Pulse Resp B/P (MAP) Pulse Ox O2 Delivery O2 Flow Rate FiO2 01/02/17 08:00 97 Room Air 01/02/17 07:48 36.5 64 20 156/70 (98) 97 Room Air 01/02/17 04:00 Room Air 01/02/17 00:19 37.1 80 17 146/79 (101) 98 Room Air 01/02/17 00:00 Room Air 01/01/17 20:00 Room Air 01/01/17 16:00 Room Air 01/01/17 14:31 36.8 83 16 153/83 (106) 98 185/91 (122) Meds Administered Last 24 Hrs: Meds Administered (Past 24Hrs) Medications (Trade) Dose Ordered Sig/Gin Route Start Time Stop Time Status Last Admin Dose Admin Sodium Chloride 500 ml @ 999 mls/hr Q31M STAT IV 01/01/17 00:18 01/01/17 00:48 DC 01/01/17 00:28 999 MLS/HR Heparin Sodium (Porcine) (Heparin Sq 5000 Unit/0.5ml) 5,000 unit Q12 SQ 01/01/17 09:00 01/31/17 08:59 01/02/17 08:10 5,000 UNIT Insulin Glargine (Lantus Solostar Pen) 6 units Q12H SC 01/01/17 09:00 01/31/17 08:59 01/02/17 08:09 6 UNITS Insulin Aspart (novoLOG ASPART) SLIDING SCALE If C... ACHS SC 01/01/17 11:00 01/31/17 10:59 01/01/17 13:44 6 UNITS Fenofibrate (Tricor Tab) 145 mg DAILY PO 01/01/17 09:00 01/31/17 08:59 01/02/17 08:03 145 MG Levothyroxine Sodium (Synthroid Tab) 112 mcg DAILYBB PO 01/01/17 06:30 01/31/17 06:29 01/02/17 05:39 112 MCG Lorazepam (Ativan Tab) 0.5 mg DAILY PO 01/01/17 09:00 01/01/17 13:41 DC 01/01/17 09:35 0.5 MG Multivitamins/ Minerals (Multivitamin W/ Minerals Tab) 1 tab DAILY PO 01/01/17 09:00 01/31/17 08:59 01/02/17 08:02 1 TAB Pantoprazole Sodium (Protonix Tab) 40 mg DAILY PO 01/01/17 09:00 01/31/17 08:59 01/02/17 08:03 40 MG Quetiapine Fumarate (seroQUEL XR TAB) 400 mg HS PO 01/01/17 21:00 01/31/17 20:59 01/01/17 21:14 400 MG Sodium Chloride 1,000 ml @ 100 mls/hr Q10H IV 01/01/17 03:15 01/31/17 03:14 01/02/17 04:47 200 MLS/HR Lamotrigine (Lamictal Tab) 25 mg QAM PO 01/02/17 09:00 02/01/17 08:59 01/02/17 08:03 25 MG Lamotrigine (Lamictal Tab) 25 mg 1339 ONCE PO 01/01/17 13:39 01/01/17 13:42 DC 01/01/17 15:11 25 MG Lorazepam (Ativan Tab) 0.5 mg BID PRN PO 01/01/17 13:45 01/31/17 13:44 01/01/17 21:53 0.5 MG Lab Results Last 24 Hrs: Last 24 Hours Test 01/01/17 16:45 01/01/17 17:13 01/01/17 17:55 01/01/17 20:21 Bedside Glucose 59 mg/dl 60 mg/dl 91 mg/dl 137 mg/dl Test 01/02/17 05:33 01/02/17 07:37 01/02/17 11:39 Sodium Level 142 mmol/L Potassium Level 4.2 mmol/L Chloride Level 112 mmol/L Carbon Dioxide Level 26 mmol/L Anion Gap 4.0 mmol/L Blood Urea Nitrogen 45 mg/dl Creatinine 1.80 mg/dl Est Creatinine Clear Calc Drug Dose 21.3 ml/min Estimated GFR () 30.7 Estimated GFR (Non- 26.5 BUN/Creatinine Ratio 24.8 Random Glucose 79 mg/dl Calcium Level 8.9 mg/dl Phosphorus Level 2.9 mg/dl Albumin 3.2 gm/dl [place] Level 0.3 mMOL/L Bedside Glucose 75 mg/dl 137 mg/dl
[2017-01-02] MEDS ORDERED: LMC25 PO (12:42)
[2017-01-02] MEDS: LORAZEPAM 0.5 MG TAB PO PRN (12:42)
--- NOTE | 2017-01-02 12:48 | Discharge Instructions ---
Discharge Instructions Date of Service Jan 02, 2017. Admission Reason for Admission: Acute Kidney Failure Discharge Discharge Diagnosis / Problem: Urinary Tract Infection Discharge Goals Goal(s): Decrease discomfort Activity Recommendations Activity Limitations: resume your previous activity . Instructions / Follow-Up Instructions / Follow-Up You were admitted to [facility] due to your creatinine levels , which measure the damage to your kidneys, being higher than normal. Because of the damage that your medication [employer] can cause to your kidneys, we stopped this medication and started you on a medication called Lamictal, which is much better for your kidneys and generally has less side effects than [employer]. You can continue your other home medications. During your time here, we also checked your urine and found that you have a urinary tract infection. We will be discharging you on antibiotics for this. Please use Keflex 500 mg twice daily for 7 days for your Urinary tract infection. Use Lamictal 25 mg every day Your follow up appointments include: 1) Dr. Joya on January 08 - overall check up & check creatinine 2) Dr. Castillo on - follow up about the switch from [employer] to Lamictal 3) Dr. Cruz on January 28 - to check on your kidney function Current Hospital Diet Patient's current hospital diet: Diabetes Type 2 Diet, Renal Diet, AHA Diet ( Heart Healthy) Discharge Diet Recommended Diet: AHA Diet (Heart Healthy), Diabetes Type 2 Diet, Renal Diet Pending Studies Studies pending at discharge: no Laboratory Results Hemoglobin A1c Test 01/01/17 05:08 Range/Units Estimated Average Glucose 148 mg/dl Hemoglobin A1c 6.8 H 4.5-5.6 % Medical Emergencies . Who to Call and When: Medical Emergencies: If at any time you feel your situation is an emergency, please call 911 immediately. . Non-Emergent Contact Non-Emergency issues call your: Primary Care Provider . . "Provider Documentation" section prepared by Dariusz Walsh. . VTE Core Measure Inpt VTE Proph given/why not?: Unfractionated heparin SQ Resident Tracking Resident Involvement: Resident Care Provided Care Provided: Adult Hospital Medicine
--- NOTE | 2017-01-02 14:13 | Discharge Summary ---
Discharge Summary Date of Service Jan 02, 2017. (Dariusz Walsh M.D.) Discharge Summary Admission Date: Jan 01, 2017 at 02:17 Discharge Date: Jan 02, 2017 Discharge Disposition: Home Principal Diagnosis: Urinary Tract Infection Immunizations: Have You Had Influenza Vaccine: No Influenza Vaccine Date: Sep 21, 2005 History of Tetanus Vaccine?: UTD History of Pneumococcal: No History of Hepatitis B Vaccine: No (Dariusz Walsh M.D.) Medication Reconciliation New Medications: Lamotrigine (Lamotrigine) 25 Mg Tab 25 MG PO QAM for 28 Days, #28 TAB Continued Medications: Fenofibrate (Tricor) 145 Mg Tab 145 MG PO DAILY Fish Oil ([place]-3) 1 Ea Cap 2 CAP PO DAILY, CAP Insulin Aspart (Novolog Flexpen) 100 Units/Ml Inj 6 UNITS SQ with afternoon meal Insulin Aspart (Novolog Flexpen) 100 Units/Ml Inj 5 UNITS SQ with am & pm meal Insulin Glargine (Lantus Solostar) 100 Unit/Ml Inj 12 UNITS SC QPM, PEN Insulin Isophane (Human) (Humulin N Kwikpen) 100 Unit/Ml Inj 3 UNITS SC QPM Levothyroxine Sodium (Synthroid) 112 Mcg Tab 112 MCG PO DAILY, TAB Lorazepam (Ativan) 0.5 Mg Tab 0.5 MG PO DAILY, TAB Losartan Potassium (Cozaar) 100 Mg Tab 100 MG PO DAILY, TAB Multivitamins/Minerals (Mvi With Minerals) Tab 1 TAB PO DAILY, 0 Refills Pantoprazole (Protonix) 40 Mg Tab 40 MG PO DAILY Quetiapine Fumarate Xr (Seroquel Xr Tab) 400 Mg Tabcr 400 MG PO HS, TAB Discontinued Medications: Bowlegs Carbonate (Bowlegs Carbonate) 150 Mg Cap 150 MG PO QPM Discharge Exam Ms. Lanier is a 76 year old lady who has no new complaints today. Her previous constipation and abdominal pain has resolved and she had a bowel movement yesterday, and reports no abdominal pain today. She reports that she is feeling well and that she has not had any mood disturbances. Her main concern is increased frequency of urination, which is likely a result of her IV hydration as well as her UTI. She denies any blood in her urine or dysuria. Review of Systems: Constitutional: No fever, No chills, No sweats, No weight loss, No weakness Respiratory: No cough, No sputum, No wheezing, No shortness of breath Cardiovascular: No chest pain Abdomen: No pain, No nausea, No vomiting, No diarrhea Genitourinary - Female: + urinary frequency, No dysuria, No urinary urgency , No hematuria (Dariusz Walsh M.D.) Hospital Course Ms. Lanier was seen in the [facility] emergency department due to severe abdominal pain and constipation, which soon thereafter resolved. She was admitted due to an elevated creatinine level of 3, which was higher than her baseline of 1.7. Given her history of bipolar disorder and the fact that she was on lithium, both psychiatry and nephrology were consulted. Psychiatry recommended changing her lithium to lamictal 25mg until she was able to see her psychiatrist, Dr. Castillo, who could then reassess her situation and decide whether to titrate her up to the normal dose of Lamictal. Under nephrology's advice, we treated her with IV fluids, held nephrotoxic medications, and monitored her renal profile daily. Her creatinine came down to 1.8 today, and Ms. Lanier is tolerating the switch to lamictal well. Her urine culture came back positive for E.coli, and she will be prescribed antibiotics on discharge. She is happy to be discharged and followed up with her PCP Dr. Joya on January 08, Dr. Castillo on January [address] Cruz on January 28. Total Time Spent: Less than 30 minutes This includes examination of the patient, discharge planning, medication reconciliation, and communication with other providers. (Dariusz Walsh M.D.) Discharge Instructions Please refer to the electronic Patient Visit Report (Discharge Instructions) for additional information. (Dariusz Walsh M.D.) Additional Copies To Zunilda Joya M.D.; Jovanny Castillo M.D.; Kirit Cruz M.D. History Resident Physician Supervision Note: I was present with Dr. Walsh during the history and exam. I discussed the case with the resident and agree with the findings and plan as documented in the note. Any exceptions or clarifications are listed here. Pt reports resolution of abdominal discomfort and is subjectively improved in organization of communication. (Max Childress MD) General Appearance: WD/WN, no apparent distress Respiratory: chest non-tender, lungs clear, normal breath sounds, no respiratory distress Cardiovascular: normal peripheral pulses, regular rate, rhythm, no edema, no murmur Gastrointestinal: normal bowel sounds, non tender, soft, no organomegaly (Max Childress MD) Assessment/Plan 76 y/o female h/o bipolar d/o, CKD admitted for YEVGENIY on CKD UTI - E. coli on UCx - will treat w/ keflex as is improving on same and f/u C&S in AM to call w/ changes YEVGENIY on CKD - nephrology aware and recommendations appreciated - Cr improved to 1.8 on day of discharge. Would recheck as outpatient. Bipolar D/O - psychiatry aware and recommendations appreciated - d/c'd lithium, continue lamictal w/ upward titration on follow up DMII - resume home regimen Hypothyroidism - continue synthroid HLD - continue fenofibrate Delirium - resolved (Max Childress MD)
[2017-01-02] MEDS ORDERED: NURSING VERBAL MED ORDER ONE (14:15)
[2017-01-02 15:12] VITALS: BP 156/70; PULSE 64; TEMP 36.5; O2SAT 97
[2017-01-02] MEDS ORDERED: LAMO25TA PO (16:16)
[2017-01-02] MEDS ORDERED: CEPH500C PO (16:16)
== END 2017-01-02 17:50 | disposition home or self-care (01) ==
LOC: C.EDB 23:03 → ENRESERV 01-01 01:58 → C.MED 01-01 02:17
PROVIDERS: ADMIT Internal Medicine; ATTEND Family Medicine
DX: N17.9 Acute kidney failure, unspecified (principal); E86.0 Dehydration; K59.00 Constipation, unspecified; N39.0 Urinary tract infection, site not specified; B96.20 Unspecified Escherichia coli [E. coli] as the cause of diseases classified elsewhere; E11.9 Type 2 diabetes mellitus without complications; I51.9 Heart disease, unspecified; F31.9 Bipolar disorder, unspecified; Z90.710 Acquired absence of both cervix and uterus; Z82.49 Family history of ischemic heart disease and other diseases of the circulatory system; Z83.3 Family history of diabetes mellitus; Z90.49 Acquired absence of other specified parts of digestive tract; I12.9 Hypertensive chronic kidney disease with stage 1 through stage 4 chronic kidney disease, or unspecified chronic kidney disease; N18.3 Chronic kidney disease, stage 3 (moderate); Z79.4 Long term (current) use of insulin; E03.9 Hypothyroidism, unspecified; Z79.899 Other long term (current) drug therapy

== ENCOUNTER → 2017-01-25 | Outpatient (CLI) | payer BC ==
[~2017-01-25] MED LIST changes: -CHOL100010 PO; -DLC5 PO; -DOCU-94 PO; -ERGO1CAP35 PO; -FISHOIL PO; -INSDGI SC; +INSDGIPEN SC; +LAMO100T PO; +LAMO25TA PO; -LITH150C PO; +LORA-741 PO; -NVLGI SC; +NVLGI/PEN SQ; +NVLGIPEN SQ; +OMEG10007 PO; -SENN-61 PO
[2017-01-25 16:36] LABS: HEMATOCRIT 33.9 % (37-47); MEAN CELL VOLUME 92.6 fL (80-100); MEAN CORPUSCULAR HEMOGLOBIN 29.8 pg (25-34); MEAN CORPUSCULAR HGB CONC 32.2 g/dl (32-36); MEAN PLATELET VOLUME 11.1 fL (7.4-10.4); PLATELET COUNT 334 K/uL (130-400); RED BLOOD COUNT 3.66 M/uL (4.2-5.4); WHITE BLOOD COUNT 5.06 K/uL (4.8-10.8)
[2017-01-25 16:56] LABS: BLOOD UREA NITROGEN 38 mg/dl (7-18); BUN/CREATININE RATIO 23.6 (10-20); CALCIUM 10.2 mg/dl (8.5-10.1); CARBON DIOXIDE 27 mmol/L (21-32); CHLORIDE 106 mmol/L (98-107); GLUCOSE 73 mg/dl (70-99); POTASSIUM 4.1 mmol/L (3.5-5.1); SODIUM 140 mmol/L (136-145)
[2017-01-25 16:57] LABS: PHOSPHORUS 3.2 mg/dl (2.5-4.9)
[2017-01-25 17:55] LABS: URINE PROTIEN/CREAT RATIO 0.2 (0-0.2); URINE TOTAL PROTEIN 20.5 mg/dl (0-11.9)
[2017-01-25 18:05] LABS: URINE APPEARANCE CLEAR (CLEAR); URINE BILIRUBIN NEG (NEG); URINE COLOR YELLOW; URINE NITRITE NEG (NEG); URINE PH 6.5 (4.5-7.5); URINE SPECIFIC GRAVITY 1.019 (1.000-1.030); UROBILINOGEN NEG (NEG)
[2017-01-25 18:11] LABS: MANUAL MICROSCOPIC REQUIRED? NO; REVIEW REQ? NO
[2017-01-26 07:59] LABS: ESTIMATED AVERAGE GLUCOSE 151 mg/dl; HA1C FLAG Normal (Normal)
== END ==
LOC: C.LAB1850 15:47
PROVIDERS: ATTEND Internal Medicine Nephrology
DX: D64.9 Anemia, unspecified (principal); I12.9 Hypertensive chronic kidney disease with stage 1 through stage 4 chronic kidney disease, or unspecified chronic kidney disease; N18.3 Chronic kidney disease, stage 3 (moderate); E21.3 Hyperparathyroidism, unspecified; E55.9 Vitamin D deficiency, unspecified; E11.649 Type 2 diabetes mellitus with hypoglycemia without coma; E11.22 Type 2 diabetes mellitus with diabetic chronic kidney disease

== ENCOUNTER → 2017-02-22 | Outpatient (CLI) | payer BC ==
[~2017-02-22] MED LIST changes: -LAMO25TA PO
[2017-02-22 17:17] LABS: THYROID STIMULATING HORMONE 2.41 uIu/ml (0.300-4.500)
== END | disposition home or self-care (01) ==
LOC: C.LAB1850 15:10
PROVIDERS: ATTEND Nurse Practitioner Adult Health
DX: E03.9 Hypothyroidism, unspecified (principal); E06.3 Autoimmune thyroiditis

== ENCOUNTER 2017-03-11 16:54 | Emergency (ER) | payer BC ==
[~2017-03-11] VITALS: Ht 162.6 cm; Wt 55.0 kg
[~2017-03-11 16:54] MED LIST changes: -LAMO100T PO
[2017-03-11 17:20] VITALS: TEMP 36.3; Ht 162.6 cm; Wt 55.0 kg
[2017-03-11] MEDS ORDERED: LAMO100T PO (17:58)
--- NOTE | 2017-03-11 18:17 | DIAGNOSTIC IMAGING REPORT ---
CT HEAD WITHOUT CONTRAST (CT) CLINICAL HISTORY: Head pain status post trauma COMPARISON STUDY: 12/05/2015 TECHNIQUE: Axial CT of the brain is performed from the vertex to the skull base. IV contrast was not administered for this examination. A dose lowering technique was utilized adhering to the principles of ALARA. CT DOSE: 537.48 mGy.cm FINDINGS: No intra or extra-axial mass lesions are visualized. There is no CT evidence of acute cortical infarction. There is no evidence of midline shift. There is no acute hemorrhage. No calvarial fractures are visualized. There are patchy white matter hypodensities likely on a small vessel basis. There is mild ventricular prominence in keeping with the degree of atrophy. There is no evidence of acute sinusitis IMPRESSION: No acute intracranial findings Electronically signed by: Flaco Briggs M.D. 03/11/2017 6:15 PM Dictated Date/Time: 03/11/2017 6:14 PM
--- NOTE | 2017-03-11 18:33 | DIAGNOSTIC IMAGING REPORT ---
R RIBS UNILATERAL WITH PA CHEST (5 views) CLINICAL HISTORY: Right rib pain status post trauma COMPARISON STUDY: Chest x-ray dated 12/05/2015 FINDINGS: The erect chest reveals no pneumothorax. There is no focal pulmonary consolidation. Postsurgical changes involve the left breast. There is slight bowing deformities of the right sixth and seventh ribs. These are likely old. There is an age-indeterminate right eighth rib fracture. There is a calcification located adjacent the right humeral head. In the proper clinical setting this could indicate calcific tendinitis. IMPRESSION: 1. Age-indeterminate fracture the right eighth rib 2. Slight bowing deformities of the right sixth and seventh ribs, likely old 3. No evidence of pneumothorax Electronically signed by: Flaco Briggs M.D. 03/11/2017 6:31 PM Dictated Date/Time: 03/11/2017 6:28 PM
--- NOTE | 2017-03-11 19:06 | EMERGENCY ROOM VISIT NOTE ---
ED Visit Note First contact with patient: 17:26 CHIEF COMPLAINT: Right rib injury 4 days ago HISTORY OF PRESENT ILLNESS: Patient is a 76-year-old female who presents the emergency department accompanied by her for evaluation of right- sided rib pain. Patient reports that she fell at home 5 days ago. She is presently receiving physical therapy in the home once per week due to lower extremity weakness. She did therapy exercises on Saturday, the day prior to her fall. She reported she felt sore and that her legs felt weak. She got out of bed, and fell striking the right side of her face on a carpeted floor. She did not lose consciousness. She had some swelling and bruising and a small abrasion near the right eye, but she states that this is improving. She had another fall later that day. She reports that she had been down on the floor in the bathroom wiping something up. She was getting up from the floor, she fell to the right, striking her right ribs on the door frame. She has noted pain in the posterior lateral right ribs, and has some bruising there. She took ibuprofen for discomfort. She denies any headache, lightheadedness, dizziness, nausea, vomiting or vision changes. She denies any neck or midline spine pain. No anterior chest pain, palpitations or shortness of breath. No cough, wheezing or sputum production. She denies any abdominal pain, no hematuria. She is primarily concerned regarding the rib injury and is requesting x-rays. She does not take any blood thinning medications. REVIEW OF SYSTEMS: Review of systems as per HPI. All other systems reviewed were negative. 10 systems reviewed. PMH: Electronic medical records are reviewed and summarized as above/below. See Problem List. SOCIAL HISTORY: Patient lives at home with her spouse. She is retired. Nonsmoker. PHYSICAL EXAM: Vital Signs: Reviewed Nurse's notes. GENERAL: Patient is a pleasant, thin, 76-year-old female who is awake and alert and sitting on the gurney in no acute distress. HEENT: Head - normocephalic and atraumatic. Pupils are equal, round, and reactive to light. Extraocular eye muscles are intact and sclera are anicteric. Ears - bilaterally patent canals with no evidence of hemotympanum. Nose - moist nasal mucosa without evidence of trauma or discharge. Mouth - moist buccal mucosa with no trauma to the teeth or signs of malocclusion. There is slight right periorbital ecchymosis and swelling. Neck: The neck is supple and there is no pain to palpation over the posterior cervical spine and no obvious step-offs or deformities. There is no JVD or tracheal deviation. Chest: There are no signs of deformities, contusions or abrasions to the anterior chest wall. She has ecchymosis noted in the right back, over the mid ribs posteriorly, no obvious crepitus or paradoxical chest rise. Heart: Regular rate, and regular rhythm. Lungs: Breath sounds equal and clear to auscultation without wheezes, rales, or rhonchi heard. Abdomen: Soft, completely nontender, nondistended, with good bowel sounds. There is no sign of trauma such as contusions, abrasions or penetrations. There are no palpable pulsatile masses or hepatosplenomegaly. There is no guarding, rigidity, or rebound noted. Extremities: No obvious trauma, deformities, contusions, or edema. There are easily palpable peripheral pulses. Neuro: The patient is awake and alert and easily able to follow commands. Muscle strength is 5 out of 5 in all 4 extremities. Otherwise, neuro exam is unremarkable. Back: The entire thoracic, lumbar, and sacral spine were palpated. No discomfort over the thoracic spine and lumbar spine. There are no obvious step- offs or deformities noted. There are no obvious signs of trauma such as contusions abrasions penetrations noted to the back. EMERGENCY DEPARTMENT COURSE: The patient was seen and evaluated as above. Head CT was obtained and was negative for acute intracranial bleed or obvious fracture, rib x-rays were obtained and noted age-indeterminate fracture of the right eighth rib, likely old fractures of the sixth and seventh ribs. There is no evidence for pneumothorax. X-ray findings were reviewed with the patient and her . Conservative care measures were discussed. Differential diagnoses entertained included rib fracture, rib contusion, pneumothorax, vertebral fracture, skull fracture, acute intracranial bleed, among others. The patient maintains of the falls are mechanical in nature. Her history is not appear consistent with syncope or seizure. She has had some chronic lower extremity weakness for which she is in therapy. She feels that her weakness was exacerbated by physical therapy last week which caused her to fall. She was encouraged to rest and avoid any strenuous activity that exacerbates her pain, and to be careful when moving around her home to avoid any more falls. She was advised to recheck with her primary care provider this week. Discharged home with her . Medication reconciliation: I attest that I have personally reviewed the patient' s current medication list. Blood pressure screening: Patient was found to have a slightly elevated blood pressure due to circumstances. I do not believe that the patient requires hypertension monitoring. CT HEAD WITHOUT CONTRAST (CT) CLINICAL HISTORY: Head pain status post trauma COMPARISON STUDY: 12/05/2015 TECHNIQUE: Axial CT of the brain is performed from the vertex to the skull base. IV contrast was not administered for this examination. A dose lowering technique was utilized adhering to the principles of ALARA. CT DOSE: 537.48 mGy.cm FINDINGS: No intra or extra-axial mass lesions are visualized. There is no CT evidence of acute cortical infarction. There is no evidence of midline shift. There is no acute hemorrhage. No calvarial fractures are visualized. There are patchy white matter hypodensities likely on a small vessel basis. There is mild ventricular prominence in keeping with the degree of atrophy. There is no evidence of acute sinusitis IMPRESSION: No acute intracranial findings R RIBS UNILATERAL WITH PA CHEST (5 views) CLINICAL HISTORY: Right rib pain status post trauma COMPARISON STUDY: Chest x-ray dated 12/05/2015 FINDINGS: The erect chest reveals no pneumothorax. There is no focal pulmonary consolidation. Postsurgical changes involve the left breast. There is slight bowing deformities of the right sixth and seventh ribs. These are likely old. There is an age-indeterminate right eighth rib fracture. There is a calcification located adjacent the right humeral head. In the proper clinical setting this could indicate calcific tendinitis. IMPRESSION: 1. Age-indeterminate fracture the right eighth rib 2. Slight bowing deformities of the right sixth and seventh ribs, likely old 3. No evidence of pneumothorax Problem List Medical Problems: (1) Abdominal pain Status: Resolved (2) Acute kidney failure Status: Resolved (3) Anemia Status: Chronic (4) BIPOL I, MOST RECENT EPISODE (OR CURRENT) UNSPECIFIED Status: Chronic (5) Chronic idiopathic anal pain Status: Chronic (6) Constipation Status: Chronic (7) Constipation Status: Resolved (8) Constipation Status: Resolved (9) Constipation Status: Resolved (10) Constipation Status: Resolved (11) Constipation Status: Resolved (12) Constipation Status: Resolved (13) Dehydration Status: Resolved (14) Diabetes Status: Chronic (15) Elevated troponin Status: Resolved (16) Epigastric pain Status: Resolved (17) Heart disease Status: Chronic (18) Hyperlipidemia, Unspecified Status: Chronic (19) Hypertension Status: Chronic (20) Hyponatremia Status: Resolved (21) Hypothyroidism Status: Chronic (22) Intractable nausea and vomiting Status: Resolved (23) Malignant neoplasm of breast Status: Resolved (24) Mass of anus Status: Resolved (25) Rectal pain, chronic Status: Resolved (26) Rectal prolapse Status: Resolved (27) Sacral back pain Status: Resolved (28) Stage 3 chronic kidney disease Status: Chronic (29) Urinary tract infection Status: Resolved Surgical Problems: (1) Hx of cholecystectomy Status: Resolved (2) Hysterectomy Status: Resolved Current/Historical Medications Scheduled Fenofibrate (Tricor), 145 MG PO DAILY Fish Oil ([place]-3), 2 CAP PO DAILY Insulin Aspart (Novolog Flexpen), 6 UNITS SQ with afternoon meal Insulin Aspart (Novolog Flexpen), 5 UNITS SQ with am & pm meal Insulin Glargine (Lantus Solostar), 9 UNITS SC QPM Insulin Isophane (Human) (Humulin N Kwikpen), 2 UNITS SC QPM Lamotrigine (Lamictal), 100 MG PO DAILY Levothyroxine Sodium (Synthroid), 112 MCG PO DAILY Lorazepam (Ativan), 0.5 MG PO DAILY Losartan Potassium (Cozaar), 100 MG PO DAILY Multivitamins/Minerals (Mvi With Minerals), 1 TAB PO DAILY Pantoprazole (Protonix), 40 MG PO DAILY Quetiapine Fumarate Xr (Seroquel Xr Tab), 400 MG PO HS Allergies Coded Allergies: Iodinated Diagnostic Agents (Verified Allergy, Severe, Anaphylaxis, ) Dust (Verified Allergy, Unknown, UNKNOWN, 03/11/17) Fungi (Verified Allergy, Unknown, UNKNOWN, 03/11/17) Molds and Smuts (Verified Allergy, Unknown, UNKNOWN, 03/11/17) POLLEN (Verified Allergy, Unknown, UNKNOWN, 03/11/17) Vital Signs Date Time Temp Pulse Resp B/P (MAP) Pulse Ox O2 Delivery O2 Flow Rate FiO2 03/11/17 19:25 75 18 172/83 96 03/11/17 17:20 36.3 80 20 157/83 93 Room Air Departure Information Impression Primary Impression: Right rib fracture Additional Impression: Facial contusion Referrals No Doctor, Assigned (PCP) Patient Instructions [facility] Additional Instructions Apply ice to ribs for swelling and pain. Do deep breathing and coughing exercises as instructed. Limit activities until ribs heal. Ibuprofen(Motrin, Advil) may be used for fever or pain. Use 600mg every six hours as needed. Take with food. Avoid using more than 2400mg in a 24 hour period. Do not use 2400mg per day for more than three consecutive days without physician direction. Prolonged inappropriate use can lead to stomach upset or ulcers. (AND/OR) Acetaminophen(Tylenol) may be used for fever or pain. Use 1000mg every six hours as needed. Avoid using more than 3000mg in a 24 hour period. Follow up with your family doctor this week for recheck. Return to the emergency department for worsening pain, cough, shortness of breath, severe headaches, vomiting, passing out, worsening symptoms or as needed. Problem Qualifiers
--- NOTE | 2017-03-11 19:15 | EMERGENCY ROOM VISIT NOTE ---
ED Visit Note First contact with patient: 17:26 I have seen and examined this patient with Ashlyn Mckeon and agree with the treatment plan. Problem List Medical Problems: (1) Abdominal pain Status: Resolved (2) Acute kidney failure Status: Resolved (3) Anemia Status: Chronic (4) BIPOL I, MOST RECENT EPISODE (OR CURRENT) UNSPECIFIED Status: Chronic (5) Chronic idiopathic anal pain Status: Chronic (6) Constipation Status: Chronic (7) Constipation Status: Resolved (8) Constipation Status: Resolved (9) Constipation Status: Resolved (10) Constipation Status: Resolved (11) Constipation Status: Resolved (12) Constipation Status: Resolved (13) Dehydration Status: Resolved (14) Diabetes Status: Chronic (15) Elevated troponin Status: Resolved (16) Epigastric pain Status: Resolved (17) Heart disease Status: Chronic (18) Hyperlipidemia, Unspecified Status: Chronic (19) Hypertension Status: Chronic (20) Hyponatremia Status: Resolved (21) Hypothyroidism Status: Chronic (22) Intractable nausea and vomiting Status: Resolved (23) Malignant neoplasm of breast Status: Resolved (24) Mass of anus Status: Resolved (25) Rectal pain, chronic Status: Resolved (26) Rectal prolapse Status: Resolved (27) Sacral back pain Status: Resolved (28) Stage 3 chronic kidney disease Status: Chronic (29) Urinary tract infection Status: Resolved Surgical Problems: (1) Hx of cholecystectomy Status: Resolved (2) Hysterectomy Status: Resolved Current/Historical Medications Scheduled Fenofibrate (Tricor), 145 MG PO DAILY Fish Oil ([place]-3), 2 CAP PO DAILY Insulin Aspart (Novolog Flexpen), 6 UNITS SQ with afternoon meal Insulin Aspart (Novolog Flexpen), 5 UNITS SQ with am & pm meal Insulin Glargine (Lantus Solostar), 9 UNITS SC QPM Insulin Isophane (Human) (Humulin N Kwikpen), 2 UNITS SC QPM Lamotrigine (Lamictal), 100 MG PO DAILY Levothyroxine Sodium (Synthroid), 112 MCG PO DAILY Lorazepam (Ativan), 0.5 MG PO DAILY Losartan Potassium (Cozaar), 100 MG PO DAILY Multivitamins/Minerals (Mvi With Minerals), 1 TAB PO DAILY Pantoprazole (Protonix), 40 MG PO DAILY Quetiapine Fumarate Xr (Seroquel Xr Tab), 400 MG PO HS Allergies Coded Allergies: Iodinated Diagnostic Agents (Verified Allergy, Severe, Anaphylaxis, ) Dust (Verified Allergy, Unknown, UNKNOWN, 03/11/17) Fungi (Verified Allergy, Unknown, UNKNOWN, 03/11/17) Molds and Smuts (Verified Allergy, Unknown, UNKNOWN, 03/11/17) POLLEN (Verified Allergy, Unknown, UNKNOWN, 03/11/17) Vital Signs Date Time Temp Pulse Resp B/P (MAP) Pulse Ox O2 Delivery O2 Flow Rate FiO2 03/11/17 17:20 36.3 80 20 157/83 93 Room Air Departure Information Impression Primary Impression: Right rib fracture Additional Impression: Facial contusion Referrals No Doctor, Assigned (PCP) Patient Instructions [facility] Additional Instructions Apply ice to ribs for swelling and pain. Do deep breathing and coughing exercises as instructed. Limit activities until ribs heal. Ibuprofen(Motrin, Advil) may be used for fever or pain. Use 600mg every six hours as needed. Take with food. Avoid using more than 2400mg in a 24 hour period. Do not use 2400mg per day for more than three consecutive days without physician direction. Prolonged inappropriate use can lead to stomach upset or ulcers. (AND/OR) Acetaminophen(Tylenol) may be used for fever or pain. Use 1000mg every six hours as needed. Avoid using more than 3000mg in a 24 hour period. Follow up with your family doctor this week for recheck. Return to the emergency department for worsening pain, cough, shortness of breath, severe headaches, vomiting, passing out, worsening symptoms or as needed. Problem Qualifiers
[2017-03-11 19:25] VITALS: BP 172/83; PULSE 75; O2SAT 96
== END 2017-03-11 19:27 | disposition home or self-care (01) ==
LOC: C.EDB 16:55 → C.EDD 19:27
DX: S22.31XA Fracture of one rib, right side, initial encounter for closed fracture (principal); S00.83XA Contusion of other part of head, initial encounter; W06.XXXA Fall from bed, initial encounter; W22.8XXA Striking against or struck by other objects, initial encounter; E11.22 Type 2 diabetes mellitus with diabetic chronic kidney disease; I12.9 Hypertensive chronic kidney disease with stage 1 through stage 4 chronic kidney disease, or unspecified chronic kidney disease; E78.5 Hyperlipidemia, unspecified; E03.9 Hypothyroidism, unspecified; F31.9 Bipolar disorder, unspecified; N18.3 Chronic kidney disease, stage 3 (moderate); Z87.440 Personal history of urinary (tract) infections; Z90.49 Acquired absence of other specified parts of digestive tract; Z90.710 Acquired absence of both cervix and uterus; Z79.4 Long term (current) use of insulin; Z79.899 Other long term (current) drug therapy

== ENCOUNTER → 2017-03-28 | Outpatient (CLI) | payer BC ==
[~2017-03-28] MED LIST changes: +LAMO100T PO
--- NOTE | 2017-03-29 14:12 | MAMMOGRAPHY REPORT ---
BILATERAL DIGITAL SCREENING MAMMOGRAM TOMOSYNTHESIS WITH CAD: 03/28/2017 CLINICAL HISTORY: Asymptomatic. Personal history of breast cancer. TECHNIQUE: Breast tomosynthesis in addition to standard 2D mammography was performed. Current study was also evaluated with a Computer Aided Detection (CAD) system. COMPARISON: Comparison is made to exams dated: 01/23/2016 mammogram, 11/24/2014 mammogram, 09/15/2013 dainel mogram, 08/21/2012 mammogram, 08/20/2011 mammogram, and 08/12/2009 mammogram - [facility] BREAST COMPOSITION: The tissue of both breasts is heterogeneously dense, which may obscure small mas ses. FINDINGS: No suspicious masses, calcifications, or areas of architectural distortion are noted in ei ther breast. There has been no significant interval change compared to prior exams. There are stable postsurgical changes in the left breast from prior lumpectomy, including stable density and architec tural distortion at the lumpectomy bed. Coarse benign dystrophic calcifications are again noted at t he lumpectomy bed, with other benign-appearing calcifications seen scattered within the left breast. IMPRESSION: ACR BI-RADS CATEGORY 2: BENIGN There is no mammographic evidence of malignancy. A 1 year screening mammogram is recommended. The pa tient will receive written notification of the results. Approximately 10% of breast cancers are not detected with mammography. A negative mammographic report should not delay biopsy if a clinically suggestive mass is present. Alyce Martinez M.D. ah/:03/28/2017 16:04:48 Nutrition Services Assistant: Mary MORIN(R)(M), [facility] letter sent: Normal 1/2 BI-RADS Code: ACR BI-RADS Category 2: Benign
== END | disposition home or self-care (01) ==
LOC: C.MAMM 14:37
PROVIDERS: ATTEND Obstetrics & Gynecology
DX: Z12.31 Encounter for screening mammogram for malignant neoplasm of breast (principal)

== ENCOUNTER → 2017-04-29 | Outpatient (CLI) | payer BC ==
[2017-04-29 17:50] LABS: HEMATOCRIT 31.8 % (37-47); MEAN CELL VOLUME 93.8 fL (80-100); MEAN CORPUSCULAR HEMOGLOBIN 30.1 pg (25-34); MEAN CORPUSCULAR HGB CONC 32.1 g/dl (32-36); MEAN PLATELET VOLUME 11.8 fL (7.4-10.4); PLATELET COUNT 293 K/uL (130-400); RED BLOOD COUNT 3.39 M/uL (4.2-5.4); WHITE BLOOD COUNT 4.92 K/uL (4.8-10.8)
[2017-04-29 17:51] LABS: URINE APPEARANCE CLEAR (CLEAR); URINE BILIRUBIN NEG (NEG); URINE COLOR YELLOW; URINE NITRITE POS (NEG); URINE PH 6.5 (4.5-7.5); URINE SPECIFIC GRAVITY 1.021 (1.000-1.030); UROBILINOGEN NEG (NEG)
[2017-04-29 17:54] LABS: BLOOD UREA NITROGEN 60 mg/dl (7-18); BUN/CREATININE RATIO 23.1 (10-20); CALCIUM 9.6 mg/dl (8.5-10.1); CARBON DIOXIDE 27 mmol/L (21-32); CHLORIDE 103 mmol/L (98-107); CREATININE 2.59 mg/dl (0.60-1.20); GLUCOSE 139 mg/dl (70-99); SODIUM 139 mmol/L (136-145)
[2017-04-29 17:55] LABS: MANUAL MICROSCOPIC REQUIRED? NO; REVIEW REQ? NO
[2017-04-29 18:04] LABS: URINE PROTIEN/CREAT RATIO 0.1 (0-0.2); URINE TOTAL PROTEIN 14.8 mg/dl (0-11.9)
[2017-04-29 18:05] LABS: PHOSPHORUS 4.5 mg/dl (2.5-4.9)
[2017-04-30 05:40] LABS: ESTIMATED AVERAGE GLUCOSE 128 mg/dl; HA1C FLAG Normal (Normal)
== END | disposition home or self-care (01) ==
LOC: C.LAB1850 16:20
PROVIDERS: ATTEND Internal Medicine Nephrology
DX: D64.9 Anemia, unspecified (principal); I12.9 Hypertensive chronic kidney disease with stage 1 through stage 4 chronic kidney disease, or unspecified chronic kidney disease; N18.3 Chronic kidney disease, stage 3 (moderate); R80.9 Proteinuria, unspecified; E55.9 Vitamin D deficiency, unspecified; N17.9 Acute kidney failure, unspecified; E11.649 Type 2 diabetes mellitus with hypoglycemia without coma; E03.9 Hypothyroidism, unspecified

== ENCOUNTER 2017-05-13 16:19 | Emergency (ER) | payer BC ==
[~2017-05-13] VITALS: Ht 167.6 cm; Wt 54.5 kg
[2017-05-13 16:24] VITALS: TEMP 36.5; Ht 167.6 cm; Wt 54.5 kg
--- NOTE | 2017-05-13 16:56 | EMERGENCY ROOM VISIT NOTE ---
ED Visit Note First contact with patient: 16:36 CHIEF COMPLAINT: "I fell last night" HISTORY OF PRESENT ILLNESS: This 77-year-old female patient presents to the emergency department, ambulatory, complaining of pain in the left ribs after falling last night. The patient states she was in the bathroom and reaching for something, when she lost her balance and fell, landing on her left side into the toilet. The patient states she has been doing physical therapy, and recently was increased to 8 pound weights. She states when the physical therapist as this increased, it tends to make her muscles very sore. She states last time this happened, she did fall, fracturing her right ribs. She states "I need to tell the therapist to stop using 8 pound weights". There is increased pain with deep breathing or coughing. Attempting to sit up from a lying position is painful. Denies shortness of breath or coughing up blood. The patient rates the pain as sore and 4/10. The patient has been using thermic care and took a hot bath to help with the discomfort. No previous fractures to the left ribs. The patient denies any other injury. The patient denies any abdominal pain, nausea, or vomiting. REVIEW OF SYSTEMS: A 6 system review of systems was completed with positives and pertinent negatives listed in the HPI. ALLERGIES: IV contrast MEDICATIONS: TriCor, fish oil, NovoLog, Lantus, Humulin, Lamictal, Synthroid, Ativan, Cozaar, multivitamin, Protonix, Seroquel PMH: Diabetes, bipolar, kidney disease SOCIAL HISTORY: Patient lives locally with family. She denies drug, alcohol, tobacco use. PHYSICAL EXAM: VITALS: Vitals are noted on the nurse's note and reviewed by myself. Vital signs stable. GENERAL: This is a 77-year-old female, in no acute distress, nondiaphoretic, well-developed well-nourished. LUNGS: Clear to auscultation and breath sounds equal, no wheezes, rales, or rhonchi. HEART: Heart sounds are regular without murmurs, ectopy, gallop, or rub. CHEST: The left chest wall is tender to palpation over the 7-10 ribs but there is no fracture crepitus and no ecchymosis. There is no tachypnea or dyspnea. ABDOMEN: Positive bowel sounds x 4. Normal tympanic percussion. Soft, nontender, without masses or organomegaly. No guarding or rebound tenderness. NEURO: Patient was alert and oriented to person place and time. RADIOLOGY: L RIBS UNILATERAL WITH PA CHEST CLINICAL HISTORY: left rib pain/bruising (area of 7-10 ribs) s/p fall COMPARISON STUDY: Chest and right rib series 03/11/2017. FINDINGS: Nondisplaced left lateral 10th rib fracture. Old, healed right-sided rib fractures. Stable linear densities the left lung base suggesting scarring or atelectasis. The lungs are otherwise clear. The heart is normal in size. No pleural effusions. No pneumothorax. IMPRESSION: An acute nondisplaced left lateral 10th rib fracture. No pneumothorax. Electronically signed by: Luciano Gonzalez M.D. 05/13/2017 5:43 PM Dictated Date/Time: 05/13/2017 5:39 PM EMERGENCY DEPARTMENT COURSE: I examined the patient. X-rays of the chest with left rib detail was reviewed by myself and radiologist and show a nondisplaced fracture of the 10th rib. I discussed the findings with the patient at bedside. I advised her of the importance of using spirometry to help keep the lungs expanded. I offered the patient pain medication and she declines. Discussed the case with Dr. Talley, who is in agreement with the assessment and plan. DIFFERENTIAL DIAGNOSIS: Rib fracture, contusion, pulmonary contusion, costochondritis, malignancy, and others DIAGNOSIS: Nondisplaced Fracture of left 10th rib Problem List Medical Problems: (1) Abdominal pain Status: Resolved (2) Acute kidney failure Status: Resolved (3) Anemia Status: Chronic (4) BIPOL I, MOST RECENT EPISODE (OR CURRENT) UNSPECIFIED Status: Chronic (5) Chronic idiopathic anal pain Status: Chronic (6) Constipation Status: Chronic (7) Constipation Status: Resolved (8) Constipation Status: Resolved (9) Constipation Status: Resolved (10) Constipation Status: Resolved (11) Constipation Status: Resolved (12) Constipation Status: Resolved (13) Dehydration Status: Resolved (14) Diabetes Status: Chronic (15) Elevated troponin Status: Resolved (16) Epigastric pain Status: Resolved (17) Heart disease Status: Chronic (18) Hyperlipidemia, Unspecified Status: Chronic (19) Hypertension Status: Chronic (20) Hyponatremia Status: Resolved (21) Hypothyroidism Status: Chronic (22) Intractable nausea and vomiting Status: Resolved (23) Malignant neoplasm of breast Status: Resolved (24) Mass of anus Status: Resolved (25) Rectal pain, chronic Status: Resolved (26) Rectal prolapse Status: Resolved (27) Sacral back pain Status: Resolved (28) Stage 3 chronic kidney disease Status: Chronic (29) Urinary tract infection Status: Resolved Surgical Problems: (1) Hx of cholecystectomy Status: Resolved (2) Hysterectomy Status: Resolved Current/Historical Medications Scheduled Fenofibrate (Tricor), 145 MG PO DAILY Fish Oil ([place]-3), 2 CAP PO DAILY Insulin Aspart (Novolog Flexpen), 6 UNITS SQ with afternoon meal Insulin Aspart (Novolog Flexpen), 5 UNITS SQ with am & pm meal Insulin Glargine (Lantus Solostar), 9 UNITS SC QPM Insulin Isophane (Human) (Humulin N Kwikpen), 2 UNITS SC QPM Lamotrigine (Lamictal), 100 MG PO DAILY Levothyroxine Sodium (Synthroid), 112 MCG PO DAILY Lorazepam (Ativan), 0.5 MG PO DAILY Losartan Potassium (Cozaar), 100 MG PO DAILY Multivitamins/Minerals (Mvi With Minerals), 1 TAB PO DAILY Pantoprazole (Protonix), 40 MG PO DAILY Quetiapine Fumarate Xr (Seroquel Xr Tab), 400 MG PO HS Allergies Coded Allergies: Iodinated Diagnostic Agents (Verified Allergy, Severe, Anaphylaxis, ) Dust (Verified Allergy, Unknown, UNKNOWN, 03/11/17) Fungi (Verified Allergy, Unknown, UNKNOWN, 03/11/17) Molds and Smuts (Verified Allergy, Unknown, UNKNOWN, 03/11/17) POLLEN (Verified Allergy, Unknown, UNKNOWN, 03/11/17) Vital Signs Date Time Temp Pulse Resp B/P (MAP) Pulse Ox O2 Delivery O2 Flow Rate FiO2 05/13/17 17:54 81 20 131/73 98 Room Air 05/13/17 16:24 36.5 84 18 152/73 98 Room Air Departure Information Impression Primary Impression: Left rib fracture Dispostion Home / Self-Care Condition GOOD Referrals No Doctor, Assigned (PCP) Patient Instructions ED Fx Rib, [facility] Additional Instructions You have been treated in the Emergency Department for Rib fracture. For pain control, you can use the following [id number] medicines (if >12 yo): Ibuprofen(Motrin, Advil) may be used for fever or pain. Use 600mg every six hours as needed. Take with food. Avoid using more than 2400mg in a 24 hour period. Do not use 2400mg per day for more than three consecutive days without physician direction. Prolonged inappropriate use can lead to stomach upset or ulcers. (AND/OR) Acetaminophen(Tylenol) may be used for fever or pain. Use 1000mg every six hours as needed. Avoid using more than 3000mg in a 24 hour period. If this is an acute injury, ice can be applied to the area of pain for the first 3 days to help decrease pain and inflammation. After the first 3 days, a heating pad can be used over the area for continued soothing relief. To minimize your discomfort, you can hug a pillow while coughing or sneezing. Additionally, you should continue to force yourself to take nice, deep breaths. Full expansion of the lungs is necessary to prevent the accumulation of fluid in the lung tissue and development of pneumonia. You may use the incentive spirometry device provided to you. You should schedule a follow-up appointment in 2-3 days with your Primary Care Provider for further evaluation and treatment of your back pain. Please avoid overly heavy lifting at Physical Therapy, as it seems that this is making you weak and tired, and causing frequent falls. Return to the Emergency Department if your current symptoms worsen despite treatment course outlined above, or if you develop any of the following symptoms : intractable pain despite aforementioned treatment course, development of a wet cough, bloody cough, fever, chills, or increased shortness of breath. Problem Qualifiers Primary Impression: Left rib fracture Encounter type: initial encounter Rib fracture type: single rib Fracture type: closed Qualified Codes: S22.32XA - Fracture of one rib, left side, initial encounter for closed fracture
--- NOTE | 2017-05-13 17:44 | DIAGNOSTIC IMAGING REPORT ---
L RIBS UNILATERAL WITH PA CHEST CLINICAL HISTORY: left rib pain/bruising (area of 7-10 ribs) s/p fall COMPARISON STUDY: Chest and right rib series 03/11/2017. FINDINGS: Nondisplaced left lateral 10th rib fracture. Old, healed right-sided rib fractures. Stable linear densities the left lung base suggesting scarring or atelectasis. The lungs are otherwise clear. The heart is normal in size. No pleural effusions. No pneumothorax. IMPRESSION: An acute nondisplaced left lateral 10th rib fracture. No pneumothorax. Electronically signed by: Luciano Gonzalez M.D. 05/13/2017 5:43 PM Dictated Date/Time: 05/13/2017 5:39 PM
[2017-05-13 17:54] VITALS: BP 131/73; PULSE 81; O2SAT 98
--- NOTE | 2017-05-13 18:17 | EMERGENCY ROOM VISIT NOTE ---
ED Visit Note First contact with patient: 16:36 Staff note: I have reviewed the Patients chart and have discussed this case with my PA. I generally agree with the ED note and findings.
== END 2017-05-13 18:44 | disposition home or self-care (01) ==
LOC: C.EDB 16:20 → C.EDD 18:44
DX: S22.32XA Fracture of one rib, left side, initial encounter for closed fracture (principal); W01.0XXA Fall on same level from slipping, tripping and stumbling without subsequent striking against object, initial encounter; E11.9 Type 2 diabetes mellitus without complications; I12.9 Hypertensive chronic kidney disease with stage 1 through stage 4 chronic kidney disease, or unspecified chronic kidney disease; N18.3 Chronic kidney disease, stage 3 (moderate); E78.5 Hyperlipidemia, unspecified; E03.9 Hypothyroidism, unspecified; I51.9 Heart disease, unspecified; D64.9 Anemia, unspecified; F31.9 Bipolar disorder, unspecified; Z85.3 Personal history of malignant neoplasm of breast; Z90.710 Acquired absence of both cervix and uterus; Z87.440 Personal history of urinary (tract) infections; Z90.49 Acquired absence of other specified parts of digestive tract; Z79.4 Long term (current) use of insulin; Z79.899 Other long term (current) drug therapy; Z91.041 Radiographic dye allergy status; Z91.09 Other allergy status, other than to drugs and biological substances

== ENCOUNTER → 2017-05-22 | Outpatient (CLI) | payer BC ==
[2017-05-22 17:50] LABS: BLOOD UREA NITROGEN 60 mg/dl (7-18); BUN/CREATININE RATIO 26.1 (10-20); CALCIUM 9.3 mg/dl (8.5-10.1); CARBON DIOXIDE 27 mmol/L (21-32); CHLORIDE 104 mmol/L (98-107); CREATININE 2.29 mg/dl (0.60-1.20); GLUCOSE 90 mg/dl (70-99); POTASSIUM 4.8 mmol/L (3.5-5.1); SODIUM 136 mmol/L (136-145)
[2017-05-22 17:51] LABS: PHOSPHORUS 3.3 mg/dl (2.5-4.9)
== END | disposition home or self-care (01) ==
LOC: C.LAB1850 16:04
PROVIDERS: ATTEND Internal Medicine Nephrology
DX: D64.9 Anemia, unspecified (principal); I12.9 Hypertensive chronic kidney disease with stage 1 through stage 4 chronic kidney disease, or unspecified chronic kidney disease; N18.3 Chronic kidney disease, stage 3 (moderate); E55.9 Vitamin D deficiency, unspecified; N17.9 Acute kidney failure, unspecified

== ENCOUNTER → 2017-07-03 | Outpatient (CLI) | payer BC ==
[2017-07-03 17:07] LABS: ALBUMIN 3.6 gm/dl (3.4-5.0); BLOOD UREA NITROGEN 26 mg/dl (7-18); CALCIUM 9.4 mg/dl (8.5-10.1); CARBON DIOXIDE 30 mmol/L (21-32); CREATININE 1.67 mg/dl (0.60-1.20); GLUCOSE 101 mg/dl (70-99); PHOSPHORUS 2.7 mg/dl (2.5-4.9); POTASSIUM 3.9 mmol/L (3.5-5.1); SODIUM 136 mmol/L (136-145)
== END | disposition home or self-care (01) ==
LOC: C.LAB1850 15:59
PROVIDERS: ATTEND Internal Medicine Nephrology
DX: D64.9 Anemia, unspecified (principal); I12.9 Hypertensive chronic kidney disease with stage 1 through stage 4 chronic kidney disease, or unspecified chronic kidney disease; N18.3 Chronic kidney disease, stage 3 (moderate); E55.9 Vitamin D deficiency, unspecified

== ENCOUNTER 2017-08-10 22:22 | Emergency (ER) | payer BC ==
[~2017-08-10] VITALS: Ht 162.6 cm; Wt 64.8 kg
[2017-08-10 22:33] VITALS: TEMP 36.8; Ht 162.6 cm; Wt 64.8 kg
--- NOTE | 2017-08-10 23:16 | EMERGENCY ROOM VISIT NOTE ---
History Report prepared by Madiha: Jaymie Rubalcava Under the Supervision of: Alvino Tillman.O. First contact with patient: 22:58 Chief Complaint: CONSTIPATION Stated Complaint: CONSTIPATION,CONFUSION,DIFFICULTY WALKING History of Present Illness The patient is a 77 year old female who presents to the Emergency Room with complaints of constipation beginning earlier this morning. The patient reports she is usually constipated and this morning she went to take her laxative, but it was not helping. She states she has constant lower abdominal and lower back pain. She notes she was drinking a lot of water and resting, but she has not had a bowel movement today. Her last normal bowel movement was yesterday. She also reports that she has been to 10 doctors to discuss her constipation but they do not know the cause. She took magnesium citrate and lactulose at 1200 today. Pt denies headache, change in vision, fevers, chills, chest pain, shortness of breath, nausea, vomiting, diarrhea, pain with urination, and melena. Source of History: patient Onset: earlier this morning Quality: other (constipation) Timing: constant Associated Symptoms: + abdominal pain, + back pain, No fevers, No chills, No headache, No chest pain, No SOB, No nausea, No vomiting, No melena, No diarrhea Note: Negative pain with urination Review of Systems See HPI for pertinent positives & negatives. A total of 10 systems reviewed and were otherwise negative. Past Medical & Surgical Medical Problems: (1) Abdominal pain (2) Acute kidney failure (3) Anemia (4) BIPOL I, MOST RECENT EPISODE (OR CURRENT) UNSPECIFIED (5) Chronic idiopathic anal pain (6) Constipation (7) Constipation (8) Constipation (9) Constipation (10) Constipation (11) Constipation (12) Constipation (13) Dehydration (14) Diabetes (15) Elevated troponin (16) Epigastric pain (17) Heart disease (18) Hyperlipidemia, Unspecified (19) Hypertension (20) Hyponatremia (21) Hypothyroidism (22) Intractable nausea and vomiting (23) Malignant neoplasm of breast (24) Mass of anus (25) Rectal pain, chronic (26) Rectal prolapse (27) Sacral back pain (28) Stage 3 chronic kidney disease (29) Urinary tract infection Surgical Problems: (1) Hx of cholecystectomy (2) Hysterectomy Family History Cancer Diabetes mellitus Hypertension Social History Smoking Status: Never Smoker Alcohol Use: none Drug Use: none Marital Status: Housing Status: lives with significant other Occupation Status: unemployed Current/Historical Medications Scheduled Dicyclomine Hcl (Bentyl), 2 CAP PO TID Fenofibrate (Tricor), 145 MG PO DAILY Fish Oil (Commercial Point-3), 2 CAP PO DAILY Insulin Aspart (Novolog Flexpen), 6 UNITS SQ with afternoon meal Insulin Aspart (Novolog Flexpen), 5 UNITS SQ with am & pm meal Insulin Glargine (Lantus Solostar), 9 UNITS SC QPM Insulin Isophane (Human) (Humulin N Kwikpen), 2 UNITS SC QPM Lamotrigine (Lamictal), 100 MG PO DAILY Levothyroxine Sodium (Synthroid), 112 MCG PO DAILY Lorazepam (Ativan), 0.5 MG PO DAILY Losartan Potassium (Cozaar), 100 MG PO DAILY Multivitamins/Minerals (Mvi With Minerals), 1 TAB PO DAILY Pantoprazole (Protonix), 40 MG PO DAILY Quetiapine Fumarate Xr (Seroquel Xr Tab), 400 MG PO HS Allergies Coded Allergies: Iodinated Diagnostic Agents (Verified Allergy, Severe, Anaphylaxis, ) Dust (Verified Allergy, Unknown, UNKNOWN, 03/11/17) Fungi (Verified Allergy, Unknown, UNKNOWN, 03/11/17) Molds and Smuts (Verified Allergy, Unknown, UNKNOWN, 03/11/17) POLLEN (Verified Allergy, Unknown, UNKNOWN, 03/11/17) Physical Exam Vital Signs Date Time Temp Pulse Resp B/P (MAP) Pulse Ox O2 Delivery O2 Flow Rate FiO2 08/11/17 02:14 71 20 152/81 96 08/11/17 01:30 88 20 173/94 97 Room Air 08/10/17 22:33 36.8 86 20 158/86 97 Room Air Physical Exam GENERAL: alert, well appearing, well nourished, no distress, non-toxic EYE EXAM: normal conjunctiva, PERRL and EOM's grossly intact OROPHARYNX: no exudate, no erythema, lips, buccal mucosa, and tongue normal and mucous membranes are moist NECK: supple, no nuchal rigidity, no adenopathy, non-tender LUNGS: Clear to auscultation. Normal chest wall mechanics HEART: no murmurs, S1 normal and S2 normal ABDOMEN: abdomen soft, normo-active bowel sounds, no masses, no rebound or guarding. Abdomen is mildly distended. She is tympanitic to percussion. She has mild LLQ tenderness BACK: Back is symmetrical on inspection and there is no deformity, no midline tenderness, no CVA tenderness. SKIN: no rashes and no bruising UPPER EXTREMITIES: upper extremities are grossly normal. LOWER EXTREMITIES: No pitting edema. NEURO EXAM: Normal sensorium, cranial nerves II-XII grossly intact, normal speech, no gross weakness of arms, no gross weakness of legs. Medical Decision & Procedures ER Provider Diagnostic Interpretation: Radiology results have been interpreted by the radiologist and reviewed by me. PA CHEST WITH ABDOMINAL SERIES CLINICAL HISTORY: Constipation. FINDINGS: A PA chest radiograph is compared to study dated 02/19/2016. The heart is enlarged and there is atherosclerotic calcification of the thoracic aorta. The pulmonary vasculature is noncongested. Chronic interstitial thickening is similar to previous. Patchy airspace opacities are identified in the right upper lobe. No large pleural effusion or pneumothorax is seen. The skeletal structures are osteopenic. There are healed right-sided rib fractures. Supine and erect erect radiographs are compared to study dated 02/19/2016 and correlated with abdominal CT dated 12/31/2016. Cholecystectomy clips are identified. There is mild gaseous distention of the small bowel loops and colon. No evidence of obstruction is seen. Air-fluid levels are noted in the colon on the upright view. Fecal retention is noted in the right colon. No evidence of intraperitoneal free air is seen. There are no abnormal abdominal calcifications. The skeletal structures are osteopenic. There is mild lumbosacral spondylosis. The lumbosacral spine and bony pelvis appear intact. IMPRESSION: 1. Patchy airspace opacities are present in the right upper lobe. Correlate clinically for evidence of an infectious/inflammatory pneumonitis. Radiographic follow-up to resolution is recommended. 2. There is mild gaseous distention of the small bowel loops and colon. Scattered air-fluid levels are identified. There is no evidence of high-grade bowel obstruction. Correlate clinically for evidence of a nonspecific enterocolitis. 3. No intraperitoneal free air is seen. Electronically signed by: Josesito Schmitt M.D. 08/11/2017 12:03 AM Dictated Date/Time: 08/11/2017 12:[address] SCAN OF THE ABDOMEN AND PELVIS WITHOUT IV CONTRAST CLINICAL HISTORY: Constipation. Bloating. Generalized abdominal pain. COMPARISON STUDY: Abdominal CT dated 12/31/2016. TECHNIQUE: CT scan of the abdomen and pelvis is performed from the lung bases to the proximal femora. Images are reviewed in the axial, sagittal, and coronal planes. IV contrast was not administered for this examination as per the referring clinician. Note that the examination was performed in significantly suboptimal fashion without oral and IV contrast. A dose lowering technique was utilized adhering to the principles of ALARA. CT DOSE: 292.34 mGy.cm FINDINGS: Lung bases: The heart is normal in size and without pericardial effusion. The coronary arteries are densely calcified. The lung bases are clear noting dependent scarring versus atelectasis. There is a tiny hiatal hernia. Liver: The unenhanced liver is normal in size, contour, and attenuation. There is no intrahepatic biliary ductal dilatation. Gallbladder: Surgically absent noting clips in the gallbladder fossa. Spleen: Normal in size and attenuation. Pancreas: The unenhanced pancreas is moderately atrophic and grossly unremarkable. Adrenal glands: Unremarkable. Kidneys: The unenhanced kidneys demonstrate mild cortical atrophy and are without hydronephrosis. Foci of cortical scarring are noted in the left kidney. There are no renal calculi identified. Bilateral renal cysts measure up to 4.0 cm. A hyperdense/complex cyst in the lower pole of the left kidney measures 1.5 cm. This is unchanged from previous. Abdominal vasculature: The abdominal aorta is normal in course and caliber noting moderate atherosclerotic calcification. Bowel: Technique: Is distended and fluid-filled. No bowel obstruction is seen. No colonic wall thickening or pericolonic infiltration is identified. The small bowel loops are normal in caliber. The appendix is well-visualized and normal. Peritoneum: There is no intraperitoneal free air or abdominal ascites. Lymphadenopathy: None. Pelvic viscera: The bladder is normal as visualized. The uterus is surgically absent. No adnexal lesion is seen. Skeletal structures: The skeletal structures are osteopenic. There is a mild to moderate chronic compression deformity of T12. No lytic or blastic lesions are seen. There are healed bilateral rib fractures. IMPRESSION: 1. Significantly suboptimal examination without oral and IV contrast. 2. The colon is distended and filled with liquid stool to the level of the rectum. There is no colonic wall thickening or pericolonic inflammation. The appearance suggest a diarrheal illness. Clinical correlation will be required. These findings are similar to the 12/31/2016 examination. If not recently performed, consider nonemergent follow-up with colonoscopy to further assess the colon. 3. There is no evidence of small bowel obstruction. 4. Additional findings as above. Electronically signed by: Josesito Schmitt M.D. 08/11/2017 1:03 AM Dictated Date/Time: 08/11/2017 12:54 AM Laboratory Results 08/10/17 22:22 Red Blood Count 3.01, Mean Corpuscular Volume 91.7, Mean Corpuscular Hemoglobin 29.9, Mean Corpuscular Hemoglobin Concent 32.6, Mean Platelet Volume 10.7, Neutrophils (%) (Auto) 78.8, Lymphocytes (%) (Auto) 16.0, Monocytes (%) (Auto) 3.9, Eosinophils (%) (Auto) 0.7, Basophils (%) (Auto) 0.4, Neutrophils # (Auto) 6.43, Lymphocytes # (Auto) 1.31, Monocytes # (Auto) 0.32, Eosinophils # (Auto) 0.06, Basophils # (Auto) 0.03 08/10/17 22:22 Test 08/10/17 22:22 White Blood Count 8.17 K/uL (4.8-10.8) Red Blood Count 3.01 M/uL (4.2-5.4) Hemoglobin 9.0 g/dL (12.0-16.0) Hematocrit 27.6 % (37-47) Mean Corpuscular Volume 91.7 fL (80-100) Mean Corpuscular Hemoglobin 29.9 pg (25-34) Mean Corpuscular Hemoglobin Concent 32.6 g/dl (32-36) Platelet Count 242 K/uL (130-400) Mean Platelet Volume 10.7 fL (7.4-10.4) Neutrophils (%) (Auto) 78.8 % Lymphocytes (%) (Auto) 16.0 % Monocytes (%) (Auto) 3.9 % Eosinophils (%) (Auto) 0.7 % Basophils (%) (Auto) 0.4 % Neutrophils # (Auto) 6.43 K/uL (1.4-6.5) Lymphocytes # (Auto) 1.31 K/uL (1.2-3.4) Monocytes # (Auto) 0.32 K/uL (0.11-0.59) Eosinophils # (Auto) 0.06 K/uL (0-0.5) Basophils # (Auto) 0.03 K/uL (0-0.2) RDW Standard Deviation 49.1 fL (36.4-46.3) RDW Coefficient of Variation 14.7 % (11.5-14.5) Immature Granulocyte % (Auto) 0.2 % Immature Granulocyte # (Auto) 0.02 K/uL (0.00-0.02) Prothrombin Time 9.7 SECONDS (9.0-12.0) Prothromb Time International Ratio 0.9 (0.9-1.1) Anion Gap 5.0 mmol/L (3-11) Est Creatinine Clear Calc Drug Dose 32.6 ml/min Estimated GFR () 49.3 Estimated GFR (Non- 42.5 BUN/Creatinine Ratio 25.9 (10-20) Calcium Level 9.3 mg/dl (8.5-10.1) Phosphorus Level 2.9 mg/dl (2.5-4.9) Magnesium Level 2.8 mg/dl (1.8-2.4) Total Bilirubin 0.3 mg/dl (0.2-1) Aspartate Amino Transf (AST/SGOT) 29 U/L (15-37) Alanine Aminotransferase (ALT/SGPT) 19 U/L (12-78) Alkaline Phosphatase 126 U/L (45-117) Total Protein 6.6 gm/dl (6.4-8.2) Albumin 3.4 gm/dl (3.4-5.0) Globulin 3.2 gm/dl (2.5-4.0) Albumin/Globulin Ratio 1.1 (0.9-2) Laboratory results per my review. Medications Administered Medications (Trade) Dose Ordered Sig/Gin Route Start Time Stop Time Status Last Admin Dose Admin Metoclopramide HCl (Reglan Inj) 10 mg NOW STAT IV 08/11/17 00:30 08/11/17 00:32 DC 08/11/17 00:42 10 MG Diphenhydramine HCl (Benadryl Inj) 12.5 mg NOW STAT IV 08/11/17 00:30 08/11/17 00:32 DC 08/11/17 00:41 12.5 MG Dicyclomine HCl (Bentyl Tab) 20 mg NOW STAT PO 08/11/17 01:32 08/11/17 01:33 DC 08/11/17 01:55 20 MG ED Course 2300: The patient was evaluated in room C11. A complete history and physical exam was performed. 0030: Benadryl Inj 12.5 mg IV Reglan Inj 10 mg IV 0130: I rechecked the patient at this time. She tried to go to the bathroom but was unsuccessful. He is still having some lower abdominal pain. 0132: Bentyl Tab 20 mg PO 0215: Upon reevaluation, the patient is feeling better. I discussed the findings and the treatment plan with the patient. She verbalizes agreement and understanding. She was discharged home. Medical Decision Differential diagnosis: Etiologies such as functional constipation, impaction, obstruction, volvulus, metabolic abnormality, infection, neurologic, as well as others were entertained. Patient with long-standing history of constipation, here because she does not have a bowel movement today and she was concerned. States, but yesterday was normal. Patient states she took some of her usual medications for her bowel dysfunction slightly later than she normally does. Patient states she is having some lower abdominal tenderness, but has not yet had a successful bowel movement. Patient denied any fevers or chills, any other cough or cold symptoms , no difficulty breathing, no recent change in her bowel movements, no change in her urine. Patient's labs and imaging reassuring. I do not suspect pneumonia or other pneumonitis is patient with no respiratory symptoms, no fever , no leukocytosis. Patient with a history of anemia, this evening's values slightly worse than prior. Patient denied any black stools, denies bleeding from any other site. Patient states she has an appointment Saturday with the GI doctor about her chronic constipation. Discussed with patient all results at bedside, and discussed follow-up with family doctor in addition to GI. Patient' s abdomen otherwise soft, hemodynamically stable, no fevers here. No evidence on CT of fulminant constipation, however no other acute GI pathology noted. Pt unable to provide urinary specimen here. Pt straight cath'd herself prior to arrival. Denies any recent change in urine. No other urinary symptoms. No hx of UTI. Asked case mgmt to follow-up and call patient as a precaution given pt' s concern and evaluation here as well as being unable to check urine . Medication Reconcilliation Current Medication List: was personally reviewed by me Blood Pressure Screening Patient's blood pressure: Elevated blood pressure Blood pressure disposition: Elevated BP felt to be situational Impression Primary Impression: Abdominal pain Additional Impression: Constipation Scribe Attestation The scribe's documentation has been prepared under my direction and personally reviewed by me in its entirety. I confirm that the note above accurately reflects all work, treatment, procedures, and medical decision making performed by me. Departure Information Dispostion Home / Self-Care Prescriptions Dicyclomine Hcl (BENTYL) 10 Mg Cap 2 CAP PO TID for Pain, #30 CAP 1 Refill Prov: Ivonne Lema, DO 08/11/17 Referrals Danyel Tavarez M.D. (PCP) Patient Instructions My [facility] Additional Instructions Please keep your appointment with the GI doctor on Saturday. Please follow up with your family doctor. Please continue regular medications as prescribed and drink plenty of water. If you have any worsening symptoms or new concerns, including increased abdominal pain, fevers or chills, nausea or vomiting, blood with the bowel movement, dizziness, or weakness, please return the emergency room. Problem Qualifiers Primary Impression: Abdominal pain Abdominal location: lower abdomen, unspecified Qualified Codes: R10.30 - Lower abdominal pain, unspecified Additional Impression: Constipation Constipation type: unspecified constipation type Qualified Codes: K59.00 - Constipation, unspecified
[2017-08-10 23:33] LABS: BASO % 0.4 %; BASO ABS # 0.03 K/uL (0-0.2); EOS % 0.7 %; EOS ABS # 0.06 K/uL (0-0.5); HEMATOCRIT 27.6 % (37-47); IG# 0.02 K/uL (0.00-0.02); LYMPH ABS # 1.31 K/uL (1.2-3.4); MEAN CELL VOLUME 91.7 fL (80-100); MEAN CORPUSCULAR HEMOGLOBIN 29.9 pg (25-34); MEAN CORPUSCULAR HGB CONC 32.6 g/dl (32-36); MEAN PLATELET VOLUME 10.7 fL (7.4-10.4); MONO % 3.9 %; MONO ABS # 0.32 K/uL (0.11-0.59); NEUT % 78.8 %; NEUT ABS # 6.43 K/uL (1.4-6.5); PLATELET COUNT 242 K/uL (130-400); RED CELL DISTRIBUTION WIDTH CV 14.7 % (11.5-14.5); RED CELL DISTRIBUTION WIDTH SD 49.1 fL (36.4-46.3); WHITE BLOOD COUNT 8.17 K/uL (4.8-10.8)
[2017-08-10 23:45] LABS: INR 0.9 (0.9-1.1)
[2017-08-10 23:51] LABS: ALBUMIN 3.4 gm/dl (3.4-5.0); CALCIUM 9.3 mg/dl (8.5-10.1); CREATININE 1.21 mg/dl (0.60-1.20); POTASSIUM 4.8 mmol/L (3.5-5.1)
[2017-08-10 23:53] LABS: PHOSPHORUS 2.9 mg/dl (2.5-4.9); TOTAL PROTEIN 6.6 gm/dl (6.4-8.2)
--- NOTE | 2017-08-11 00:05 | DIAGNOSTIC IMAGING REPORT ---
PA CHEST WITH ABDOMINAL SERIES CLINICAL HISTORY: Constipation. FINDINGS: A PA chest radiograph is compared to study dated 02/19/2016. The heart is enlarged and there is atherosclerotic calcification of the thoracic aorta. The pulmonary vasculature is noncongested. Chronic interstitial thickening is similar to previous. Patchy airspace opacities are identified in the right upper lobe. No large pleural effusion or pneumothorax is seen. The skeletal structures are osteopenic. There are healed right-sided rib fractures. Supine and erect erect radiographs are compared to study dated 02/19/2016 and correlated with abdominal CT dated 12/31/2016. Cholecystectomy clips are identified. There is mild gaseous distention of the small bowel loops and colon. No evidence of obstruction is seen. Air-fluid levels are noted in the colon on the upright view. Fecal retention is noted in the right colon. No evidence of intraperitoneal free air is seen. There are no abnormal abdominal calcifications. The skeletal structures are osteopenic. There is mild lumbosacral spondylosis. The lumbosacral spine and bony pelvis appear intact. IMPRESSION: 1. Patchy airspace opacities are present in the right upper lobe. Correlate clinically for evidence of an infectious/inflammatory pneumonitis. Radiographic follow-up to resolution is recommended. 2. There is mild gaseous distention of the small bowel loops and colon. Scattered air-fluid levels are identified. There is no evidence of high-grade bowel obstruction. Correlate clinically for evidence of a nonspecific enterocolitis. 3. No intraperitoneal free air is seen. Electronically signed by: Josesito Schmitt M.D. 08/11/2017 12:03 AM Dictated Date/Time: 08/11/2017 12:00 AM
[2017-08-11] MEDS ORDERED: METOCLOPRAMIDE HCL INJ 5 MG/ML 2 ML VIAL IV STA (00:30)
[2017-08-11] MEDS ORDERED: DiphenhydrAMINE HCL 50 MG/ML VIAL IV STA (00:30)
--- NOTE | 2017-08-11 01:05 | DIAGNOSTIC IMAGING REPORT ---
CT SCAN OF THE ABDOMEN AND PELVIS WITHOUT IV CONTRAST CLINICAL HISTORY: Constipation. Bloating. Generalized abdominal pain. COMPARISON STUDY: Abdominal CT dated 12/31/2016. TECHNIQUE: CT scan of the abdomen and pelvis is performed from the lung bases to the proximal femora. Images are reviewed in the axial, sagittal, and coronal planes. IV contrast was not administered for this examination as per the referring clinician. Note that the examination was performed in significantly suboptimal fashion without oral and IV contrast. A dose lowering technique was utilized adhering to the principles of ALARA. CT DOSE: 292.34 mGy.cm FINDINGS: Lung bases: The heart is normal in size and without pericardial effusion. The coronary arteries are densely calcified. The lung bases are clear noting dependent scarring versus atelectasis. There is a tiny hiatal hernia. Liver: The unenhanced liver is normal in size, contour, and attenuation. There is no intrahepatic biliary ductal dilatation. Gallbladder: Surgically absent noting clips in the gallbladder fossa. Spleen: Normal in size and attenuation. Pancreas: The unenhanced pancreas is moderately atrophic and grossly unremarkable. Adrenal glands: Unremarkable. Kidneys: The unenhanced kidneys demonstrate mild cortical atrophy and are without hydronephrosis. Foci of cortical scarring are noted in the left kidney. There are no renal calculi identified. Bilateral renal cysts measure up to 4.0 cm. A hyperdense/complex cyst in the lower pole of the left kidney measures 1.5 cm. This is unchanged from previous. Abdominal vasculature: The abdominal aorta is normal in course and caliber noting moderate atherosclerotic calcification. Bowel: Technique: Is distended and fluid-filled. No bowel obstruction is seen. No colonic wall thickening or pericolonic infiltration is identified. The small bowel loops are normal in caliber. The appendix is well-visualized and normal. Peritoneum: There is no intraperitoneal free air or abdominal ascites. Lymphadenopathy: None. Pelvic viscera: The bladder is normal as visualized. The uterus is surgically absent. No adnexal lesion is seen. Skeletal structures: The skeletal structures are osteopenic. There is a mild to moderate chronic compression deformity of T12. No lytic or blastic lesions are seen. There are healed bilateral rib fractures. IMPRESSION: 1. Significantly suboptimal examination without oral and IV contrast. 2. The colon is distended and filled with liquid stool to the level of the rectum. There is no colonic wall thickening or pericolonic inflammation. The appearance suggest a diarrheal illness. Clinical correlation will be required. These findings are similar to the 12/31/2016 examination. If not recently performed, consider nonemergent follow-up with colonoscopy to further assess the colon. 3. There is no evidence of small bowel obstruction. 4. Additional findings as above. Electronically signed by: Josesito Schmitt M.D. 08/11/2017 1:03 AM Dictated Date/Time: 08/11/2017 12:54 AM
[2017-08-11] MEDS ORDERED: DICYCLOMINE HCL 20 MG TAB PO STA (01:32)
[2017-08-11] MEDS ORDERED: DICY10CA55 PO (02:10)
[2017-08-11 02:14] VITALS: BP 152/81; PULSE 71; O2SAT 96
== END 2017-08-11 02:15 | disposition home or self-care (01) ==
LOC: C.EDB 22:24 → C.EDC 08-11 02:15
DX: R10.30 Lower abdominal pain, unspecified (principal); K59.00 Constipation, unspecified; N17.9 Acute kidney failure, unspecified; D64.9 Anemia, unspecified; F31.9 Bipolar disorder, unspecified; E11.9 Type 2 diabetes mellitus without complications; I51.9 Heart disease, unspecified; E78.5 Hyperlipidemia, unspecified; I10 Essential (primary) hypertension; E03.9 Hypothyroidism, unspecified; N18.3 Chronic kidney disease, stage 3 (moderate); Z83.3 Family history of diabetes mellitus; Z79.4 Long term (current) use of insulin; Z91.041 Radiographic dye allergy status

== ENCOUNTER → 2017-09-27 | Outpatient (CLI) | payer BC ==
[~2017-09-27] MED LIST changes: +DICY10CA55 PO; +LCTS240 PO; +LOSA50TA6 PO
[2017-09-27 17:40] LABS: HEMATOCRIT 31.3 % (37-47); HEMOGLOBIN 10.3 g/dL (12.0-16.0); MEAN CORPUSCULAR HEMOGLOBIN 29.9 pg (25-34); MEAN CORPUSCULAR HGB CONC 32.9 g/dl (32-36); MEAN PLATELET VOLUME 11.6 fL (7.4-10.4); PLATELET COUNT 306 K/uL (130-400); RED CELL DISTRIBUTION WIDTH SD 46.8 fL (36.4-46.3); WHITE BLOOD COUNT 6.84 K/uL (4.8-10.8)
[2017-09-27 17:58] LABS: ALBUMIN 3.8 gm/dl (3.4-5.0); BLOOD UREA NITROGEN 35 mg/dl (7-18); CALCIUM 9.2 mg/dl (8.5-10.1); CARBON DIOXIDE 22 mmol/L (21-32); CREATININE 1.51 mg/dl (0.60-1.20); GLUCOSE 122 mg/dl (70-99); POTASSIUM 5.2 mmol/L (3.5-5.1); SODIUM 131 mmol/L (136-145)
[2017-09-27 17:59] LABS: PHOSPHORUS 3.6 mg/dl (2.5-4.9)
== END | disposition home or self-care (01) ==
LOC: C.LAB1850 16:53
PROVIDERS: ATTEND Internal Medicine Nephrology
DX: I12.9 Hypertensive chronic kidney disease with stage 1 through stage 4 chronic kidney disease, or unspecified chronic kidney disease (principal); E21.3 Hyperparathyroidism, unspecified; R80.9 Proteinuria, unspecified; N18.3 Chronic kidney disease, stage 3 (moderate); E55.9 Vitamin D deficiency, unspecified

== ENCOUNTER → 2017-09-30 | Outpatient (CLI) | payer BC | END | disposition home or self-care (01) | LOC: C.LABSPEC 16:56 | PROVIDERS: ATTEND Internal Medicine Nephrology | DX: I12.9 Hypertensive chronic kidney disease with stage 1 through stage 4 chronic kidney disease, or unspecified chronic kidney disease (principal); E21.3 Hyperparathyroidism, unspecified; R80.9 Proteinuria, unspecified; N18.3 Chronic kidney disease, stage 3 (moderate); E55.9 Vitamin D deficiency, unspecified ==

== ENCOUNTER 2017-10-09 07:34 | Inpatient (IN) | payer BC, OTHER ==
[~2017-10-09] VITALS: Ht 162.6 cm; Wt 59.8 kg
[~2017-10-09 07:34] MED LIST changes: -LCTS240 PO; -LOSA50TA6 PO
[2017-10-09] MEDS ORDERED: SODIUM CHLORIDE 0.9% 1000ML 1,000 ML IV STA (07:39)
--- NOTE | 2017-10-09 08:08 | DIAGNOSTIC IMAGING REPORT ---
SINGLE VIEW CHEST CLINICAL HISTORY: Generalized weakness. Lethargy. FINDINGS: An AP, portable, upright chest radiograph is compared to study dated 08/10/2017. The examination is degraded by portable technique and patient rotation. The heart is enlarged and there is atherosclerotic calcification of the thoracic aorta. The pulmonary vasculature is noncongested. There is bibasilar consolidation. Trace pleural effusions are suspected. No pneumothorax is seen. The skeletal structures are osteopenic. The bony thorax is grossly intact. Cholecystectomy clips are noted. IMPRESSION: 1. Cardiomegaly without radiographic evidence of congestive failure. 2. There is bibasilar airspace consolidation. Correlate clinically for evidence of pneumonia/aspiration pneumonitis. Radiographic follow-up to resolution is recommended. 3. Suspect trace pleural effusions. Electronically signed by: Josesito Schmitt M.D. 10/09/2017 8:07 AM Dictated Date/Time: 10/09/2017 8:06 AM
[2017-10-09 08:11] LABS: BASO % 0.3 %; BASO ABS # 0.02 K/uL (0-0.2); EOS % 1.1 %; EOS ABS # 0.07 K/uL (0-0.5); HEMATOCRIT 28.5 % (37-47); HEMOGLOBIN 9.1 g/dL (12.0-16.0); IG# 0.01 K/uL (0.00-0.02); LYMPH ABS # 1.83 K/uL (1.2-3.4); MEAN CELL VOLUME 93.1 fL (80-100); MEAN CORPUSCULAR HEMOGLOBIN 29.7 pg (25-34); MEAN CORPUSCULAR HGB CONC 31.9 g/dl (32-36); MEAN PLATELET VOLUME 10.2 fL (7.4-10.4); MONO % 7.3 %; MONO ABS # 0.46 K/uL (0.11-0.59); NEUT % 62.1 %; NEUT ABS # 3.93 K/uL (1.4-6.5); PLATELET COUNT 250 K/uL (130-400); RED CELL DISTRIBUTION WIDTH CV 15.2 % (11.5-14.5); RED CELL DISTRIBUTION WIDTH SD 51.2 fL (36.4-46.3); WHITE BLOOD COUNT 6.32 K/uL (4.8-10.8)
[2017-10-09 08:14] LABS: ISTAT CREATININE 1.8 mg/dl (0.6-1.3); ISTAT IONIZED CALCIUM 1.19 mmol/l (1.12-1.32); ISTAT POTASSIUM 5.7 mEq/L (3.3-5.0)
[2017-10-09 08:19] LABS: PTT PATIENT 24.3 SECONDS (21.0-31.0)
[2017-10-09 08:27] LABS: ALBUMIN 3.1 gm/dl (3.4-5.0); ALT/SGPT 35 U/L (12-78); AST/SGOT 91 U/L (15-37); BLOOD UREA NITROGEN 36 mg/dl (7-18); CARBON DIOXIDE 27 mmol/L (21-32); CREATININE 1.88 mg/dl (0.60-1.20); GLUCOSE 136 mg/dl (70-99); POTASSIUM 5.9 mmol/L (3.5-5.1); SODIUM 143 mmol/L (136-145)
[2017-10-09 08:42] LABS: ALKALINE PHOSPHATASE 153 U/L (45-117); TOTAL PROTEIN 6.2 gm/dl (6.4-8.2)
[2017-10-09 08:56] VITALS: O2SAT 100; BMI 24.2
[2017-10-09] MEDS ORDERED: ASPIRIN 81 MG CHEW PO STA (09:00)
[2017-10-09] MEDS ORDERED: SODIUM POLYST. SULF SUSP 15G/60ML PO STA ×2 (09:38→16:39)
[2017-10-09] MEDS ORDERED: LCTS240 PO (09:45)
[2017-10-09] MEDS ORDERED: LOSA50TA6 PO (09:45)
--- NOTE | 2017-10-09 10:27 | History and Physical ---
History & Physical Date & Time of Service: Oct 09, 2017 at 09:39 Chief Complaint: Lethargic Primary Care Physician: No Doctor, Assigned History of Present Illness Ms. Lanier is somnolent and a poor historian stating that she doesn't know why she is at the hospital. She is able to state that she has chronic constipation and weak legs. She denies sob or chest pain. She did tell cardiology she is taking her Synthroid at home. She is otherwise unable to complete a review of systems. Her daughter is apparently her POA but she does not have her phone number. Per outpatient records, has had declining cognition and patient's children live out of state and are not very close with their parents. Endocrinology had offered a referral to the [facility] of [facility] in June but patient declined. Pmhx of breast ca, bipolar I, constipation, YEVGENIY, CKD, DMII Past Medical/Surgical History Medical Problems: (1) Abdominal pain (2) Acute kidney failure (3) Anemia (4) BIPOL I, MOST RECENT EPISODE (OR CURRENT) UNSPECIFIED (5) Chronic idiopathic anal pain (6) Constipation (7) Constipation (8) Constipation (9) Constipation (10) Constipation (11) Constipation (12) Constipation (13) Dehydration (14) Diabetes (15) Elevated troponin (16) Epigastric pain (17) Facial contusion (18) Heart disease (19) Hyperlipidemia, Unspecified (20) Hypertension (21) Hyponatremia (22) Hypothyroidism (23) Intractable nausea and vomiting (24) Left rib fracture (25) Malignant neoplasm of breast (26) Mass of anus (27) Rectal pain, chronic (28) Rectal prolapse (29) Right rib fracture (30) Sacral back pain (31) Stage 3 chronic kidney disease (32) Urinary tract infection Surgical Problems: (1) Hx of cholecystectomy (2) Hysterectomy Family History Cancer Diabetes mellitus Hypertension Social History Smoking Status: Never Smoker Drug Use: none Marital Status: Housing status: lives with family Occupational Status: unemployed Immunizations History of Influenza Vaccine: No Influenza Vaccine Date: Sep 21, 2005 History of Tetanus Vaccine?: UTD History of Pneumococcal: No History of Hepatitis B Vaccine: No Allergies Coded Allergies: Iodinated Diagnostic Agents (Verified Allergy, Severe, Anaphylaxis, ) Dust (Verified Allergy, Unknown, UNKNOWN, 10/09/17) Fungi (Verified Allergy, Unknown, UNKNOWN, 10/09/17) Molds and Smuts (Verified Allergy, Unknown, UNKNOWN, 10/09/17) POLLEN (Verified Allergy, Unknown, UNKNOWN, 10/09/17) Home Medications Scheduled Dicyclomine Hcl (Bentyl), 2 CAP PO TID Fenofibrate (Tricor), 145 MG PO DAILY Fish Oil (Arcadia-3), 2 CAP PO DAILY Insulin Aspart (Novolog Flexpen), 6 UNITS SQ with afternoon meal Insulin Aspart (Novolog Flexpen), 5 UNITS SQ with am & pm meal Insulin Glargine (Lantus Solostar), 9 UNITS SC QPM Insulin Isophane (Human) (Humulin N Kwikpen), 2 UNITS SC QPM Lactulose (Chronulac), 1 DOSE PO DAILY Lamotrigine (Lamictal), 100 MG PO DAILY Levothyroxine Sodium (Synthroid), 112 MCG PO DAILY Lorazepam (Ativan), 0.5 MG PO DAILY Losartan Potassium (Cozaar), 50 MG PO DAILY Multivitamins/Minerals (Mvi With Minerals), 1 TAB PO DAILY Pantoprazole (Protonix), 40 MG PO DAILY Quetiapine Fumarate Xr (Seroquel Xr Tab), 400 MG PO HS Physical Exam Vital Signs Date Time Temp Pulse Resp B/P (MAP) Pulse Ox O2 Delivery O2 Flow Rate FiO2 10/09/17 09:00 34 14 116/57 98 10/09/17 08:56 100 Room Air 10/09/17 08:45 33 16 123/57 98 10/09/17 08:30 34 16 113/62 100 10/09/17 08:15 32 16 116/51 98 10/09/17 08:10 105/57 10/09/17 08:01 120/59 10/09/17 08:00 33 9 93 10/09/17 07:56 33 18 123/56 99 Room Air 10/09/17 07:48 36.4 35 18 137/62 99 Room Air 10/09/17 07:48 100 Room Air 10/09/17 07:48 100 Room Air General: no distress Eyes: normal inspection, PERLL Respiratory: chest non tender, clear to auscultation, normal breath sounds, no respiratory distress, no accessory muscle use Cardiac: regular rate and rhythm, no rub or gallop, no murmur, trace pitting edema LE, no jvd GI/: active bowel sounds, no abd pain or tenderness, soft, non distended Extremities: normal range of motion, normal strength, non tender Neuro/Psych: lethargic and oriented to person and place Skin: normal color, dry Diagnostics Laboratory Results Results Past 24 Hours Test 10/09/17 07:46 10/09/17 07:51 10/09/17 07:56 10/09/17 07:57 Range/Units Bedside Glucose 129 70-90 mg/dl Bedside Hemoglobin 9.2 12.0-16.0 g/dl Bedside Hematocrit 27 37-47 % Bedside Sodium 144 135-144 mEq/L Bedside Potassium 5.7 3.3-5.0 mEq/L Bedside Chloride 109 101-112 mEq/L Bedside Total CO2 26 24-31 mEq/l Anion Gap 16.0 5.0 3-11 mmol/L Bedside Blood Urea Nitrogen 37 7-18 mg/dl Bedside Creatinine 1.8 0.6-1.3 mg/dl Bedside Glucose (other) 130 70-99 mg/dl Bedside Ionized Calcium (Argenis) 1.19 1.12-1.32 mmol/l Bedside Lactic Acid Venous 1.11 0.90-1.70 mmol/L White Blood Count 6.32 4.8-10.8 K/uL Red Blood Count 3.06 4.2-5.4 M/uL Hemoglobin 9.1 12.0-16.0 g/dL Hematocrit 28.5 37-47 % Mean Corpuscular Volume 93.1 80-100 fL Mean Corpuscular Hemoglobin 29.7 25-34 pg Mean Corpuscular Hemoglobin Concent 31.9 32-36 g/dl Platelet Count 250 130-400 K/uL Mean Platelet Volume 10.2 7.4-10.4 fL Neutrophils (%) (Auto) 62.1 % Lymphocytes (%) (Auto) 29.0 % Monocytes (%) (Auto) 7.3 % Eosinophils (%) (Auto) 1.1 % Basophils (%) (Auto) 0.3 % Neutrophils # (Auto) 3.93 1.4-6.5 K/uL Lymphocytes # (Auto) 1.83 1.2-3.4 K/uL Monocytes # (Auto) 0.46 0.11-0.59 K/uL Eosinophils # (Auto) 0.07 0-0.5 K/uL Basophils # (Auto) 0.02 0-0.2 K/uL RDW Standard Deviation 51.2 36.4-46.3 fL RDW Coefficient of Variation 15.2 11.5-14.5 % Immature Granulocyte % (Auto) 0.2 % Immature Granulocyte # (Auto) 0.01 0.00-0.02 K/uL Prothrombin Time 10.4 9.0-12.0 SECONDS Prothromb Time International Ratio 1.0 0.9-1.1 Activated Partial Thromboplast Time 24.3 21.0-31.0 SECONDS Partial Thromboplastin Ratio 0.9 Venous Blood pH 7.40 7.36-7.41 Venous Blood Partial Pressure CO2 46 38.0-50.0 mmHg Venous Blood Partial Pressure O2 31 mmHg Venous Blood HCO3 28 mmol/L Venous Blood Oxygen Saturation < 60.0 % Venous Blood Base Excess 2.5 mEq/L Sodium Level 143 136-145 mmol/L Potassium Level 5.9 3.5-5.1 mmol/L Chloride Level 111 98-107 mmol/L Carbon Dioxide Level 27 21-32 mmol/L Blood Urea Nitrogen 36 7-18 mg/dl Creatinine 1.88 0.60-1.20 mg/dl Est Creatinine Clear Calc Drug Dose 21.0 ml/min Estimated GFR () 28.9 Estimated GFR (Non- 25.0 BUN/Creatinine Ratio 19.0 10-20 Random Glucose 136 70-99 mg/dl Calcium Level 9.0 8.5-10.1 mg/dl Magnesium Level 2.6 1.8-2.4 mg/dl Total Bilirubin 0.2 0.2-1 mg/dl Direct Bilirubin < 0.1 0-0.2 mg/dl Aspartate Amino Transf (AST/SGOT) 91 15-37 U/L Alanine Aminotransferase (ALT/SGPT) 35 12-78 U/L Alkaline Phosphatase 153 45-117 U/L Troponin I 0.067 0-0.045 ng/ml Total Protein 6.2 6.4-8.2 gm/dl Albumin 3.1 3.4-5.0 gm/dl Thyroid Stimulating Hormone (TSH) 12.800 0.300-4.500 uIu/ml Test 10/09/17 08:00 10/09/17 08:03 Range/Units Lyme Disease IgG Antibody NEG NEG Lyme Disease IgM Antibody NEG NEG Diagnostic Radiology SINGLE VIEW CHEST CLINICAL HISTORY: Generalized weakness. Lethargy. FINDINGS: An AP, portable, upright chest radiograph is compared to study dated 08/10/2017. The examination is degraded by portable technique and patient rotation. The heart is enlarged and there is atherosclerotic calcification of the thoracic aorta. The pulmonary vasculature is noncongested. There is bibasilar consolidation. Trace pleural effusions are suspected. No pneumothorax is seen. The skeletal structures are osteopenic. The bony thorax is grossly intact. Cholecystectomy clips are noted. IMPRESSION: 1. Cardiomegaly without radiographic evidence of congestive failure. 2. There is bibasilar airspace consolidation. Correlate clinically for evidence of pneumonia/aspiration pneumonitis. Radiographic follow-up to resolution is recommended. 3. Suspect trace pleural effusions. Electronically signed by: Josesito Schmitt M.D. 10/09/2017 8:07 AM CXR normal EKG Junctional bradycardia Abnormal ECG When compared with ECG of 10-AUG-2017 23:20, Junctional rhythm has replaced Sinus rhythm Vent. rate has decreased BY 41 BPM Impression Assessment and Plan Ms. Lanier is a 77 year old woman here with bradycardia with a junctional rhythm, possibly due to hypothyroid. Pmhx of breast ca, bipolar I, constipation, YEVGENIY, CKD, DMII Bradycardia - admit tele - EKG shows junctional rhythm in the 30s - trend troponins - consult cardiology - discussed with Dr. Otto - if we can obtain phone number for POA, will likely need pacer - pacer pads on patient Hyperkalemia - K 5.9 - give Kayexelate - repeat prp this afternoon and in am Hypothyroid - TSH 12.8 - unclear if patient has been taking her medication - TSH in April was 2.5 - will order home dose levothyroxine IV to ensure administration while lethargic CKD III with YEVGENIY - Creat 1.88, recent outpatient labs show creat 1.5 - gentle IVF while NPO - hold losartan DMII - home insulin glargine 9 u hs, ss, bsgs ac & hs HTN - bps controlled for now - hold losartan as above Bipolar - continue seroquel and lamictal Heparin subq Full code Supervising Note Dr. Elmore I performed a history and physical examination on the patient. I reviewed above note and agree with it. I discussed plan with APC and patient. During my face to face encounter with the patient, I answered all of the patient's questions. I informed of the plan as he had multiple questions. Patient however explains that her has dementia. Patient did not want the in the room and this was told to the . Patient wanted to be discharged but we were able to convince patient about the severity of her bradycardia. Advanced Directives Existing Living Will: Yes Existing Power of [employer]ia[employer] Officer: Yes Resuscitation Status full code VTE Prophylaxis Will order VTE Prophylaxis: Yes
--- NOTE | 2017-10-09 12:07 | Cardiology Consultation ---
Cardiology Consultation Date of Consultation: Oct 09, 2017. Requesting Physician: Mayank Reason for Consultation: Bradycardia Pt evaluation today including: conversation w/ patient, conversation w/ family , physical exam, chart review, lab review, review of studies, review of inpatient medication list, conversation w/ attending History of Present Illness The patient is a 77-year-old woman with no known cardiac history who apparently was brought to the emergency room by her . Her states that she had been very weak this morning and fell to the ground. She could not get up and he had difficulty lifting her is she is quite heavy. He felt that calling EMS was warranted in order to evaluate her and help with mobility. Once the patient arrived at [facility] emergency room she was discovered to be bradycardic. An EKG suggested a junctional rhythm. The patient can provide very little history. She is very somnolent. She often repeats certain statements. She states that she is constipated and this is a chronic problem. She knows that she has lower extremity weakness. She seems somewhat annoyed at the fact that she has to do a lot of work at home and that her has memory problems. She states she has been dizzy on occasion but cannot provide additional details. She does not describe syncope. She did not report shortness of breath. She does not appear to have pain and any particular location. A conversation with her provided little additional detail. It seems that she has been weak over the past month. He states that she does have occasional symptoms of dizziness. It is unclear whether this history is reliable. It is also unclear whether she has been taking her medications although she claims to be taking her diabetes medicines. Past Medical/Surgical History Left Breast cancer Chronic renal insufficiency Diabetes mellitus type 2 Constipation Jonathan's thyroiditis Hypothyroidism Bipolar Past surgical history Breast lumpectomy and sentinel node biopsy Cholecystectomy Exploratory laparoscopy Total abdominal hysterectomy Family History Cancer Diabetes mellitus Hypertension Noncontributory given her advanced age Social History Smoking Status: Never Smoker History of Alcohol Use: Yes (4 oz wine with dinner) Currently lives locally with her . She claims to have 3 children all of whom live out of state Review of Systems Per HPI. Additional review of systems could not be obtained as the patient was somnolent and would not provide additional details. All Other Systems: Reviewed and Negative Allergies Coded Allergies: Iodinated Diagnostic Agents (Verified Allergy, Severe, Anaphylaxis, ) Dust (Verified Allergy, Unknown, UNKNOWN, 10/09/17) Fungi (Verified Allergy, Unknown, UNKNOWN, 10/09/17) Molds and Smuts (Verified Allergy, Unknown, UNKNOWN, 10/09/17) POLLEN (Verified Allergy, Unknown, UNKNOWN, 10/09/17) Medications Current Inpatient Medications Medications (Trade) Dose Ordered Sig/Gin Route Start Time Stop Time Status Last Admin Dose Admin Heparin Sodium (Porcine) (Heparin Sq 5000 Unit/0.5ml) 5,000 unit Q12 SQ 10/09/17 21:00 11/08/17 20:59 UNV Levothyroxine Sodium 55 mcg/ Syringe 2.75 ml @ 2 mls/min DAILY@09 IV 10/10/17 09:00 11/09/17 08:59 UNV Levothyroxine Sodium 55 mcg/ Syringe 2.75 ml @ 2 mls/min 1002 ONCE IV 10/09/17 10:02 10/09/17 10:03 UNV Dicyclomine HCl (Bentyl Cap) 20 mg TID PO 10/09/17 14:00 11/08/17 13:59 UNV Fenofibrate (Tricor Tab) 145 mg DAILY PO 10/10/17 09:00 11/09/17 08:59 UNV Insulin Glargine (Lantus Solostar Pen) 9 units QPM SC 10/09/17 21:00 11/08/17 20:59 UNV Lamotrigine (Lamictal Tab) 100 mg DAILY PO 10/10/17 09:00 11/09/17 08:59 UNV Multivitamins/ Minerals (Multivitamin W/ Minerals Tab) 1 tab DAILY PO 10/10/17 09:00 11/09/17 08:59 UNV Pantoprazole Sodium (Protonix Tab) 40 mg DAILY PO 10/10/17 09:00 11/09/17 08:59 UNV Quetiapine Fumarate (seroQUEL XR TAB) 400 mg HS PO 10/09/17 21:00 11/08/17 20:59 UNV Lactulose (Chronulac Syrup) 30 gm DAILY PO 10/10/17 09:00 11/09/17 08:59 UNV Insulin Aspart (novoLOG ASPART) SLIDING SCALE If C... ACHS SC 10/09/17 11:00 11/08/17 10:59 UNV Sodium Chloride 1,000 ml @ 75 mls/hr [id number] IV 10/09/17 10:15 11/08/17 10:14 UNV Physical Exam Vital Signs Past 12 Hours Date Time Temp Pulse Resp B/P (MAP) Pulse Ox O2 Delivery O2 Flow Rate FiO2 10/09/17 09:46 33 17 120/59 98 10/09/17 09:31 32 17 115/60 97 10/09/17 09:16 32 16 102/59 96 10/09/17 09:00 34 14 116/57 98 10/09/17 08:56 100 Room Air 10/09/17 08:45 33 16 123/57 98 10/09/17 08:30 34 16 113/62 100 10/09/17 08:15 32 16 116/51 98 10/09/17 08:10 105/57 10/09/17 08:01 120/59 10/09/17 08:00 33 9 93 10/09/17 07:56 33 18 123/56 99 Room Air 10/09/17 07:48 36.4 35 18 137/62 99 Room Air 10/09/17 07:48 100 Room Air 10/09/17 07:48 100 Room Air 10/09/17 07:40 36 The patient was very somnolent. She was arousable but easily fell back asleep. He seemed answer some questions appropriately. Unclear whether she was hard of hearing or did not understand certain questions. She did make several repetitive statement HEENT: Pupils are equal and reactive to light and accommodation. Extraocular movements are intact. The sclerae are anicteric. Some ptosis of the right eye versus the left Neuro: Cranial nerves intact Neck: Patient's neck is supple. He has palpable carotid pulses bilaterally without bruits on auscultation. There is no evidence of jugular venous distention. Lungs: Clear to auscultation bilaterally. He has good air movement without use of accessory muscles. No rales wheezes or rhonchi. Cardiac: Heart demonstrates a regular rhythm but very slow rate. Normal S1 and S2. No murmurs on examination. Pulses: The patient has palpable radial pulses bilaterally that are equal in intensity Extremities: She was somewhat cold to the touch. There is no cyanosis or clubbing. There is no edema. Skin: I did not appreciate any rashes on examination today. Data Laboratory Results: Last 24 Hours Test 10/09/17 07:46 10/09/17 07:51 10/09/17 07:56 10/09/17 07:57 Bedside Glucose 129 mg/dl Bedside Hemoglobin 9.2 g/dl Bedside Hematocrit 27 % Bedside Sodium 144 mEq/L Bedside Potassium 5.7 mEq/L Bedside Chloride 109 mEq/L Bedside Total CO2 26 mEq/l Anion Gap 16.0 mmol/L 5.0 mmol/L Bedside Blood Urea Nitrogen 37 mg/dl Bedside Creatinine 1.8 mg/dl Bedside Glucose (other) 130 mg/dl Bedside Ionized Calcium (Argenis) 1.19 mmol/l Bedside Lactic Acid Venous 1.11 mmol/L White Blood Count 6.32 K/uL Red Blood Count 3.06 M/uL Hemoglobin 9.1 g/dL Hematocrit 28.5 % Mean Corpuscular Volume 93.1 fL Mean Corpuscular Hemoglobin 29.7 pg Mean Corpuscular Hemoglobin Concent 31.9 g/dl Platelet Count 250 K/uL Mean Platelet Volume 10.2 fL Neutrophils (%) (Auto) 62.1 % Lymphocytes (%) (Auto) 29.0 % Monocytes (%) (Auto) 7.3 % Eosinophils (%) (Auto) 1.1 % Basophils (%) (Auto) 0.3 % Neutrophils # (Auto) 3.93 K/uL Lymphocytes # (Auto) 1.83 K/uL Monocytes # (Auto) 0.46 K/uL Eosinophils # (Auto) 0.07 K/uL Basophils # (Auto) 0.02 K/uL RDW Standard Deviation 51.2 fL RDW Coefficient of Variation 15.2 % Immature Granulocyte % (Auto) 0.2 % Immature Granulocyte # (Auto) 0.01 K/uL Prothrombin Time 10.4 SECONDS Prothromb Time International Ratio 1.0 Activated Partial Thromboplast Time 24.3 SECONDS Partial Thromboplastin Ratio 0.9 Venous Blood pH 7.40 Venous Blood Partial Pressure CO2 46 mmHg Venous Blood Partial Pressure O2 31 mmHg Venous Blood HCO3 28 mmol/L Venous Blood Oxygen Saturation < 60.0 % Venous Blood Base Excess 2.5 mEq/L Sodium Level 143 mmol/L Potassium Level 5.9 mmol/L Chloride Level 111 mmol/L Carbon Dioxide Level 27 mmol/L Blood Urea Nitrogen 36 mg/dl Creatinine 1.88 mg/dl Est Creatinine Clear Calc Drug Dose 21.0 ml/min Estimated GFR () 28.9 Estimated GFR (Non- 25.0 BUN/Creatinine Ratio 19.0 Random Glucose 136 mg/dl Calcium Level 9.0 mg/dl Magnesium Level 2.6 mg/dl Total Bilirubin 0.2 mg/dl Direct Bilirubin < 0.1 mg/dl Aspartate Amino Transf (AST/SGOT) 91 U/L Alanine Aminotransferase (ALT/SGPT) 35 U/L Alkaline Phosphatase 153 U/L Troponin I 0.067 ng/ml Total Protein 6.2 gm/dl Albumin 3.1 gm/dl Thyroid Stimulating Hormone (TSH) 12.800 uIu/ml Test 10/09/17 08:00 10/09/17 08:03 Lyme Disease IgG Antibody NEG Lyme Disease IgM Antibody NEG Imaging: Chest x-ray with some nonspecific findings EKG: Junctional rhythm Telemetry reviewed: Junctional rhythm Echocardiogram performed 12/05/2015: Preserved LV systolic function, mild LVH Assessment & Plan 1. Bradycardia: The patient presented with a junctional rhythm. Undoubtedly she has some symptoms related to the associated bradycardia. She does have an element of hypothyroidism which could certainly contribute to this rhythm problem. There is not appear to be another clear cause for her severe bradycardia. Even with replacement therapy it is unclear the time course for improvement in this scenario. I think she would benefit from a permanent pacemaker as result. I did describe the procedure and risks to the patient and her . They do not appear to be able to make decisions in this regard. 2. Adriamycin therapy. Patient was exposed Adriamycin around 2004 for breast cancer. She had recent echocardiogram which did not reveal any significant LV dysfunction.
--- NOTE | 2017-10-09 13:24 | EMERGENCY ROOM VISIT NOTE ---
History Report prepared by Madiha: Dez Beavers Under the Supervision of: Dr. Raul Talley D.O. First contact with patient: 07:35 Stated Complaint: LETHARGIC History of Present Illness The patient is a 77 year old female who presents to the Emergency Room via ALS with complaints of weakness. Per EMS staff members, the patient was attempting to go to the restroom earlier today when she fell to the ground. She was unable to get herself off of the floor. EMS staff state that the patient has been denying any complaints of pain or symptoms. Upon arrival to the ED she continuously states "I have no problems" and "I am fine." The arrived to bedside shortly after initial evaluation and states that the patient was not feeling well last night. He states that he was in bed while the patient was trying to use the restroom. She called for him and he found the patient lying on the floor. He is unsure if the patient fell and hit her head or not. History is limited secondary to lethargy. Source of History: patient, EMS Onset: Earlier today Position: other (Global) Quality: other (Weakness) Note: Patient denies any complaints Review of Systems See HPI for pertinent positives & negatives. A total of 10 systems reviewed and were otherwise negative. Past Medical & Surgical Medical Problems: (1) Abdominal pain (2) Acute kidney failure (3) Anemia (4) BIPOL I, MOST RECENT EPISODE (OR CURRENT) UNSPECIFIED (5) Bradycardia (6) Chronic idiopathic anal pain (7) Constipation (8) Constipation (9) Constipation (10) Constipation (11) Constipation (12) Constipation (13) Constipation (14) Dehydration (15) Diabetes (16) Elevated troponin (17) Epigastric pain (18) Heart disease (19) Hyperlipidemia, Unspecified (20) Hypertension (21) Hyponatremia (22) Hypothyroidism (23) Intractable nausea and vomiting (24) Malignant neoplasm of breast (25) Mass of anus (26) Rectal pain, chronic (27) Rectal prolapse (28) Sacral back pain (29) Stage 3 chronic kidney disease (30) Urinary tract infection Surgical Problems: (1) Hx of cholecystectomy (2) Hysterectomy Hx of Diabetes Mellitus Family History Cancer Diabetes mellitus Hypertension Social History Marital Status: Housing Status: lives with family Occupation Status: employed Current/Historical Medications Scheduled Dicyclomine Hcl (Bentyl), 2 CAP PO TID Fenofibrate (Tricor), 145 MG PO DAILY Fish Oil ([place]-3), 2 CAP PO DAILY Insulin Aspart (Novolog Flexpen), 6 UNITS SQ with afternoon meal Insulin Aspart (Novolog Flexpen), 5 UNITS SQ with am & pm meal Insulin Glargine (Lantus Solostar), 9 UNITS SC QPM Insulin Isophane (Human) (Humulin N Kwikpen), 2 UNITS SC QPM Lactulose (Chronulac), 1 DOSE PO DAILY Lamotrigine (Lamictal), 100 MG PO DAILY Levothyroxine Sodium (Synthroid), 112 MCG PO DAILY Lorazepam (Ativan), 0.5 MG PO DAILY Losartan Potassium (Cozaar), 50 MG PO DAILY Multivitamins/Minerals (Mvi With Minerals), 1 TAB PO DAILY Pantoprazole (Protonix), 40 MG PO DAILY Quetiapine Fumarate Xr (Seroquel Xr Tab), 400 MG PO HS Allergies Coded Allergies: Iodinated Diagnostic Agents (Verified Allergy, Severe, Anaphylaxis, ) Dust (Verified Allergy, Unknown, UNKNOWN, 10/09/17) Fungi (Verified Allergy, Unknown, UNKNOWN, 10/09/17) Molds and Smuts (Verified Allergy, Unknown, UNKNOWN, 10/09/17) POLLEN (Verified Allergy, Unknown, UNKNOWN, 10/09/17) Physical Exam Vital Signs Date Time Temp Pulse Resp B/P (MAP) Pulse Ox O2 Delivery O2 Flow Rate FiO2 10/09/17 12:30 42 16 154/53 98 Room Air 10/09/17 12:00 36 18 119/79 94 Room Air 10/09/17 11:45 34 14 127/64 98 10/09/17 11:32 34 17 119/60 93 10/09/17 11:17 35 19 128/58 96 10/09/17 11:01 34 16 104/53 10/09/17 10:45 32 16 128/61 99 10/09/17 10:30 33 15 109/70 95 10/09/17 10:15 35 16 123/53 99 10/09/17 10:00 34 16 105/57 97 10/09/17 09:46 33 17 120/59 98 10/09/17 09:31 32 17 115/60 97 10/09/17 09:16 32 16 102/59 96 10/09/17 09:00 34 14 116/57 98 10/09/17 08:56 100 Room Air 10/09/17 08:45 33 16 123/57 98 10/09/17 08:30 34 16 113/62 100 10/09/17 08:15 32 16 116/51 98 10/09/17 08:10 105/57 10/09/17 08:01 120/59 10/09/17 08:00 33 9 93 10/09/17 07:56 33 18 123/56 99 Room Air 10/09/17 07:48 36.4 35 18 137/62 99 Room Air 10/09/17 07:48 100 Room Air 10/09/17 07:48 100 Room Air 10/09/17 07:40 36 Physical Exam GENERAL: Sitting up in bed, alert, ill-appearing, lethargic EYE EXAM: normal conjunctiva. PERRL and EOM's intact. OROPHARYNX: no exudate, no erythema, lips, buccal mucosa, and tongue normal and mucous membranes are moist NECK: supple, no nuchal rigidity, no adenopathy, non-tender LUNGS: Clear to auscultation. Normal chest wall mechanics HEART: Bradycardic. no murmurs, S1 normal and S2 normal ABDOMEN: abdomen soft, non-tender, normo-active bowel sounds, no masses, no rebound or guarding. BACK: Back is symmetrical on inspection and there is no deformity, no midline tenderness, no CVA tenderness. SKIN: no rashes and no bruising UPPER EXTREMITIES: upper extremities are grossly normal. LOWER EXTREMITIES: No pitting edema. NEURO EXAM: Awakens to voice, answers all questions appropriately, non-focal. Medical Decision & Procedures ER Provider Diagnostic Interpretation: Radiology results as stated below per my review and the radiologist's interpretation: SINGLE VIEW CHEST CLINICAL HISTORY: Generalized weakness. Lethargy. FINDINGS: An AP, portable, upright chest radiograph is compared to study dated 08/10/2017. The examination is degraded by portable technique and patient rotation. The heart is enlarged and there is atherosclerotic calcification of the thoracic aorta. The pulmonary vasculature is noncongested. There is bibasilar consolidation. Trace pleural effusions are suspected. No pneumothorax is seen. The skeletal structures are osteopenic. The bony thorax is grossly intact. Cholecystectomy clips are noted. IMPRESSION: 1. Cardiomegaly without radiographic evidence of congestive failure. 2. There is bibasilar airspace consolidation. Correlate clinically for evidence of pneumonia/aspiration pneumonitis. Radiographic follow-up to resolution is recommended. 3. Suspect trace pleural effusions. Electronically signed by: Josesito Schmitt M.D. 10/09/2017 8:07 AM Dictated Date/Time: 10/09/2017 8:06 AM Laboratory Results 10/09/17 07:57 Red Blood Count 3.06, Mean Corpuscular Volume 93.1, Mean Corpuscular Hemoglobin 29.7, Mean Corpuscular Hemoglobin Concent 31.9, Mean Platelet Volume 10.2, Neutrophils (%) (Auto) 62.1, Lymphocytes (%) (Auto) 29.0, Monocytes (%) (Auto) 7.3, Eosinophils (%) (Auto) 1.1, Basophils (%) (Auto) 0.3, Neutrophils # (Auto) 3.93, Lymphocytes # (Auto) 1.83, Monocytes # (Auto) 0.46, Eosinophils # (Auto) 0.07, Basophils # (Auto) 0.02 10/09/17 07:57 Test 10/09/17 07:46 10/09/17 07:51 10/09/17 07:56 10/09/17 07:57 Bedside Glucose 129 mg/dl (70-90) Bedside Hemoglobin 9.2 g/dl (12.0-16.0) Bedside Hematocrit 27 % (37-47) Bedside Sodium 144 mEq/L (135-144) Bedside Potassium 5.7 mEq/L (3.3-5.0) Bedside Chloride 109 mEq/L (101-112) Bedside Total CO2 26 mEq/l (24-31) Bedside Blood Urea Nitrogen 37 mg/dl (7-18) Bedside Creatinine 1.8 mg/dl (0.6-1.3) Bedside Glucose (other) 130 mg/dl (70-99) Bedside Ionized Calcium (Argenis) 1.19 mmol/l (1.12-1.32) Bedside Lactic Acid Venous 1.11 mmol/L (0.90-1.70) White Blood Count 6.32 K/uL (4.8-10.8) Red Blood Count 3.06 M/uL (4.2-5.4) Hemoglobin 9.1 g/dL (12.0-16.0) Hematocrit 28.5 % (37-47) Mean Corpuscular Volume 93.1 fL (80-100) Mean Corpuscular Hemoglobin 29.7 pg (25-34) Mean Corpuscular Hemoglobin Concent 31.9 g/dl (32-36) Platelet Count 250 K/uL (130-400) Mean Platelet Volume 10.2 fL (7.4-10.4) Neutrophils (%) (Auto) 62.1 % Lymphocytes (%) (Auto) 29.0 % Monocytes (%) (Auto) 7.3 % Eosinophils (%) (Auto) 1.1 % Basophils (%) (Auto) 0.3 % Neutrophils # (Auto) 3.93 K/uL (1.4-6.5) Lymphocytes # (Auto) 1.83 K/uL (1.2-3.4) Monocytes # (Auto) 0.46 K/uL (0.11-0.59) Eosinophils # (Auto) 0.07 K/uL (0-0.5) Basophils # (Auto) 0.02 K/uL (0-0.2) RDW Standard Deviation 51.2 fL (36.4-46.3) RDW Coefficient of Variation 15.2 % (11.5-14.5) Immature Granulocyte % (Auto) 0.2 % Immature Granulocyte # (Auto) 0.01 K/uL (0.00-0.02) Prothrombin Time 10.4 SECONDS (9.0-12.0) Prothromb Time International Ratio 1.0 (0.9-1.1) Activated Partial Thromboplast Time 24.3 SECONDS (21.0-31.0) Partial Thromboplastin Ratio 0.9 Venous Blood pH 7.40 (7.36-7.41) Venous Blood Partial Pressure CO2 46 mmHg (38.0-50.0) Venous Blood Partial Pressure O2 31 mmHg Venous Blood HCO3 28 mmol/L Venous Blood Oxygen Saturation < 60.0 % Venous Blood Base Excess 2.5 mEq/L Anion Gap 5.0 mmol/L (3-11) Est Creatinine Clear Calc Drug Dose 21.0 ml/min Estimated GFR () 28.9 Estimated GFR (Non- 25.0 BUN/Creatinine Ratio 19.0 (10-20) Calcium Level 9.0 mg/dl (8.5-10.1) Magnesium Level 2.6 mg/dl (1.8-2.4) Total Bilirubin 0.2 mg/dl (0.2-1) Direct Bilirubin < 0.1 mg/dl (0-0.2) Aspartate Amino Transf (AST/SGOT) 91 U/L (15-37) Alanine Aminotransferase (ALT/SGPT) 35 U/L (12-78) Alkaline Phosphatase 153 U/L (45-117) Troponin I 0.067 ng/ml (0-0.045) Total Protein 6.2 gm/dl (6.4-8.2) Albumin 3.1 gm/dl (3.4-5.0) Thyroid Stimulating Hormone (TSH) 12.800 uIu/ml (0.300-4.500) Test 10/09/17 08:00 10/09/17 08:03 Lyme Disease IgG Antibody NEG (NEG) Lyme Disease IgM Antibody NEG (NEG) Laboratory results per my review. Medications Administered Medications (Trade) Dose Ordered Sig/Gin Route Start Time Stop Time Status Last Admin Dose Admin Sodium Chloride 1,000 ml @ 999 mls/hr Q1H1M STAT IV 10/09/17 07:39 10/09/17 08:39 DC 10/09/17 07:55 999 MLS/HR Aspirin (Aspirin Chew) 324 mg NOW STAT PO 10/09/17 09:00 10/09/17 09:01 DC 10/09/17 09:00 324 MG Sodium Polystyrene Sulfonate (Kayexalate Susp) 15 gm NOW STAT PO 10/09/17 09:38 10/09/17 09:57 DC 10/09/17 10:00 15 GM ECG Per My Interpretation Indication: weakness Rate (beats per minute): 64 Rhythm: junctional Findings: other (questionable retrograde p-waves, normal axis) Comparison ECG Date: 08/10/2017 Change: no significant change ED Course ED COURSE: Vital signs were reviewed and showed bradycardic vitals. The patients medical record was reviewed The above diagnostic studies were performed and reviewed. ED treatments and interventions as stated above. 0735: The patient was evaluated in room B1. A complete history and physical examination was performed. 0739: Ordered Sodium Chloride 1000 mL @ 999 mL/hr IV. 0804: I discussed the case with Dr. Otto - Cardiology. He states the patient should be brought in to medicine. 0840: I discussed the case with Dr. Tr BAZAN Hospitalist. He will evaluate the patient for further treatment. []: Upon reevaluation, the patient is [].I discussed my findings with the [ patient] and [] understands and agrees with the treatment plan. Based on the patients age, coexisting illnesses, exam and lab findings the decision to treat as an [inpatient][outpatient] was made. The patient remained stable while under my care. [The patient appeared well at the time of discharge.] [The patient will be evaluated for further management.] Medical Decision Differential Diagnosis includes but is not limited to dehydration, stroke, anemia, hypoglycemia, hyponatremia, hypernatremia, urinary tract infection, pneumonia, bronchitis, sepsis, gastroenteritis, additional abdominal pathology, metabolic abnormalities and infections. Patient is a 77-year-old female who presents the ER for weakness. Upon presentation she is found to be in a junctional rhythm with a heart rate low 30s. Maintaining a good systolic blood pressure in the 120s. CBC with a hemoglobin of 9. BMP with potassium of 5.9 and creatinine 1.88. Troponin was elevated at 0.07. TSH was elevated as well. VBG was unremarkable. Lyme was negative. EKG did appear to show retrograde P waves. Discussed my findings with cardiology who evaled Pt at bedside. Pt has no other complaints at this time. Pt was given ASA. D/w IM and cards and Pt was admitted to IM for a further workup. Medication Reconcilliation Current Medication List: was personally reviewed by me Blood Pressure Screening Patient's blood pressure: Normal blood pressure Consults Time Called: 08 Consulting Physician: Dr. Otto - Cardiology Returned Call: [phone] I discussed the case with Dr. Clarita Malave Cardiology. He states the patient should be brought in to medicine. Additional Consults: Time Called: 0826 Consulted Physician: Dr. Tr BAZAN Hospitalist. Returned Call: 0840 Additional Comments: I discussed the case with Dr. Tr [facility]. He will evaluate the patient for further treatment. Impression Primary Impression: Symptomatic bradycardia Additional Impressions: Junctional rhythm Elevated troponin Scribe Attestation The scribe's documentation has been prepared under my direction and personally reviewed by me in its entirety. I confirm that the note above accurately reflects all work, treatment, procedures, and medical decision making performed by me. Departure Information Dispostion Being Evaluated By Hospitalist Problem Qualifiers
[2017-10-09 13:29] VITALS: O2SAT 95
[2017-10-09] MEDS ORDERED: GLUCAGON FOR INJ 1 MG VIAL SQ PRN (13:30)
[2017-10-09] MEDS ORDERED: GLUCOSE 40% GEL 15 GM TUBE PO PRN (13:30)
[2017-10-09] MEDS ORDERED: GLUCOSE 10 TABS/TUBE PO PRN (13:30)
[2017-10-09] MEDS ORDERED: LEVOTHYROXINE SODIUM INJ 55 MCG in SYRINGE 0 ML IV ONE (14:30)
[2017-10-09 15:30] LABS: CALCIUM 8.8 mg/dl (8.5-10.1); CREATININE 1.89 mg/dl (0.60-1.20); POTASSIUM 5.5 mmol/L (3.5-5.1)
[2017-10-09 15:53] VITALS: BP 170/65; PULSE 42; TEMP 36.6; O2SAT 93
[2017-10-09] MEDS: SODIUM CHLORIDE 0.9% 1000ML 1,000 ML IV SCH ×2 (16:54→23:44)
[2017-10-09] MEDS: DICYCLOMINE HCL 20 MG TAB PO SCH ×2 (16:59→21:12)
--- NOTE | 2017-10-09 17:00 | Progress Note ---
Progress Note Date of Service Oct 09, 2017. Progress Note Patient's asked nursing for provider to come talk to him. Myself and Dr. Elmore came bedside and spoke to the outside of the patient's room. He was very agitated but non specific with his complaints other than saying "this organization" needed to tell his what was going on and that she had been here all day and that no one had done anything. We did spend time discussing with him the plan of care and what had been done with the patient so far such as labs, cardiac evaluation by specialist, cardiac monitoring and plans for possible pacer. We then entered the room with the patient who became extremely agitated at her , yelling that he had called the booking agent and told them that she had a gun to kill him and that this was untrue. She also said that all he does is control her. She stated she was leaving the hospital. Both Dr. Elmore and myself explained to the patient that leaving the hospital with her current status could result in serious injury or . She stated that she didn't care if she , she didn't have that much to live for. She had difficulty staying focused on her health status as the main issue and kept becoming agitated and yelling at her , pulling down the top of her gown until she was exposed from the waist up, pointing and yelling at her and telling him that his brain was gone. I asked if we could speak to her daughter, she stated that she was a liar and cheater and did not want her involved because she was trying to take her money. I asked who her support person was and she stated she had no one, only herself. After some continued explanation of the plan of care and its importance, we did finally get her calmed down, she agreed to stay at the hospital and that she would get a pacemaker if necessary. We did ask the if he would let her rest and he agreed to leave the room. The situation at home seems quite volatile and I'm unsure if the patient is truly competent to make her own decisions. Her also appears to have some dementia given his use of circumlocution and tangential conversation. Psych consult placed. CM asked to contact the [facility] of [facility]. I am still unable to obtain a phone number for the daughter as neither patient nor could/would give it to me. Patient's repeat potassium was 5.5 - repeat dose of kayexalate and recheck prp in am
[2017-10-09] MEDS: INSULIN ASPART 100 UNITS/ML 3 ML PEN SC SCH ×2 (17:06→21:17)
[2017-10-09 19:33] VITALS: BP 187/75; PULSE 42; TEMP 37; O2SAT 98
[2017-10-09] MEDS ORDERED: INSULIN GLARGINE SOLOSTAR 100 UNITS/ML 3 ML PEN SC SCH (21:00)
[2017-10-09] MEDS: QUETIAPINE FUMARATE 200 MG TABCR PO SCH (21:11)
[2017-10-09] MEDS: HEPARIN SOD 5000 UNIT/0.5 ML CARP SQ SCH (21:18)
[2017-10-09 23:45] VITALS: BP 181/48; PULSE 70; TEMP 36.9; O2SAT 94
[2017-10-10] VITALS (8 sets, daily range): BP systolic 155–206; BP diastolic 69–93; PULSE 66–85; TEMP 36.2–37.3; O2SAT 94–100
[2017-10-10] MEDS: INSULIN ASPART 100 UNITS/ML 3 ML PEN SC SCH ×4 (07:00→21:21)
[2017-10-10 07:14] LABS: HEMATOCRIT 28.9 % (37-47); HEMOGLOBIN 9.2 g/dL (12.0-16.0); MEAN CELL VOLUME 92.3 fL (80-100); MEAN CORPUSCULAR HEMOGLOBIN 29.4 pg (25-34); MEAN CORPUSCULAR HGB CONC 31.8 g/dl (32-36); MEAN PLATELET VOLUME 10.3 fL (7.4-10.4); PLATELET COUNT 237 K/uL (130-400); RED CELL DISTRIBUTION WIDTH CV 15.3 % (11.5-14.5); RED CELL DISTRIBUTION WIDTH SD 51.3 fL (36.4-46.3); WHITE BLOOD COUNT 7.43 K/uL (4.8-10.8)
[2017-10-10] MEDS: DEXTROSE 50% 50 ML SYR IV PRN ×2 (07:33→12:54)
[2017-10-10 07:50] LABS: CALCIUM 8.6 mg/dl (8.5-10.1); CREATININE 1.55 mg/dl (0.60-1.20); POTASSIUM 4.2 mmol/L (3.5-5.1)
[2017-10-10] MEDS: CEROVITE ADV FORMULA TAB PO SCH (09:00)
[2017-10-10] MEDS: DICYCLOMINE HCL 20 MG TAB PO SCH ×3 (09:00→21:18)
[2017-10-10] MEDS: HEPARIN SOD 5000 UNIT/0.5 ML CARP SQ SCH ×2 (09:00→21:22)
[2017-10-10] MEDS ORDERED: LEVOTHYROXINE SODIUM INJ 55 MCG in SYRINGE 0 ML IV SCH (09:00)
[2017-10-10] MEDS: CEFTRIAXONE SOD INJ 1 GM in DEXTROSE 5% ADD-VANTAGE 50ML 50 ML IV SCH (09:46)
--- NOTE | 2017-10-10 10:51 | Psychiatric Consultation ---
Consultation Date of Consultation Oct 10, 2017. Identifying Data 77-year-old female who lives in [place] with her , has a history of bipolar disorder type I and OCD for which she sees Dr. Castillo, and presented to the emergency room yesterday via ALS due to a fall, weakness and lethargy. Psychiatry is consulted to evaluate depression. Chief Complaint "I don't have any problems ". History of Present Illness According to a review of the record, the patient fell at home while trying to use the bathroom, and was unable to get up. EMS was called, and reported that the patient was denying all symptoms, although her reported that she had not been feeling well the night before. He was still in bed when he heard her calling for him, and found her lying on the floor. He was unsure if she had suffered injury in the fall, and as he was unable to lift her, he called EMS. Chest x-ray showed cardiomegaly and bibasilar airspace consolidation, CBC notable for anemia, CMP notable for hyperkalemia, elevated BUN and creatinine, elevated AST and ALT, and elevated troponins. TSH elevated at 12.8. A lamotrigine level was drawn and is pending, and no tox screen was done. She was somnolent and a poor historian on admission, did not know why she was in the hospital, and despite her elevated TSH, said she was compliant with levothyroxine at home. She was focused on constipation, and was repeating certain statements. She seemed annoyed that she has to do extra work at home due to her 's memory problems. Her was unable to provide much collateral information, stating that she has been weak over the past month and at times is dizzy. According to outpatient records, her has cognitive decline, and their children live out of state. A referral was made to the office of aging in June, but the patient refused. She was bradycardic with a junctional rhythm, and cardiology was consulted and is recommending a pacemaker. She was continued on her reported home doses of lamotrigine and quetiapine XR, and Lorazepam 0.5 mg daily as needed was held on admission. Yesterday afternoon, the primary team met with the patient's at his request, and both he and the patient were very agitated. The patient was yelling at her , saying that he called the staff development coordinator and told them she had a gun to kill him, and that this was not true. She said that he controls her, and she wanted to leave the hospital. When the risk of was explained to her given her medical problems, she said she did not care if she , she did not have that much to live for. She refused to give hospital staff contact information for her daughter, who is reportedly her POA, stating that her daughter is a liar and a cheater and was trying to take her money. Case management has been asked to contact the office of aging, and gave the patient a list of private pay agencies for help with housework. On my assessment today, the patient states her mood has been well controlled with her current medications, does not feel that psychiatry needs to be involved. She denies recent symptoms of depression, deloris, psychosis, and anxiety. She denies thoughts of harming herself or others. When asked about the statements she made yesterday, she initially denies them, then says she was upset because her wanted her to come into the hospital and called EMS without asking her first. She states she understands that she needs medical treatment, and is willing to follow the recommendations for getting a pacemaker , but is upset that her did not ask her if she wanted to come in. Although she denies any symptoms of anxiety, she states she does take Ativan as needed, "if something happens or upsets me, if I am up tight." She is not able to state how frequently she takes Ativan, but review of the PDMP shows that she is filling prescriptions for #45 tablets 0.5mg every 30 days or so. She states that she will be getting a pacemaker today, and is hoping that she will be able to return home soon. She says she is stressed with caring for her and doing all of the housework, and would like to have some help in the home. She reports good compliance with her home medications. She is not sure when her next appointment with Dr. Castillo is, but indicates that he wanted to see her more frequently and she felt she needed to be seen. Spoke with Dr. Castillo, who last saw her . She and her are in the stage of aging where they are declining rapidly in their ability to do things for themselves. They have not made plans for how to handle the loss of abilities , and she has been stubborn about addressing it. She has had some episodic confusion, and he has been trying to taper her off lorazepam. She is very anxious and gets easily worked up, and has multiple chronic pain conditions. He is in agreement with discontinuing lorazepam. Past Psychiatric History Current OP Treatment: psychiatrist (Dr. Castillo) Prior OP Treatment: psychiatrist (Dr. Alonzo) Prior Psych Hospitalizations: [facility] (2007 for bipolar depression and somatic preoccupation), other ("many," unsure of number) Access to a Gun: No Suicide Attempts: No Past Medication Trials Includes but not limited to: lithium - kidney dysfunction fluoxetine - 2007 admission lorazepam buspirone -2007 admission Paliperidone -2007 admission Additional Notes Diagnosed with bipolar disorder over 30 years ago; initial manic episode resulted in a prolonged 2.5 month hospitalization at [facility]. Was also diagnosed with OCD in the past. Past Medical/Surgical History (1) Bradycardia (2) Junctional rhythm (3) Constipation (4) Diabetes (5) Hypothyroidism (6) Hypertension (7) Hyperlipidemia, Unspecified Allergies Allergies: Coded Allergies: Iodinated Diagnostic Agents (Verified Allergy, Severe, Anaphylaxis, ) Dust (Verified Allergy, Unknown, UNKNOWN, 10/09/17) Fungi (Verified Allergy, Unknown, UNKNOWN, 10/09/17) Molds and Smuts (Verified Allergy, Unknown, UNKNOWN, 10/09/17) POLLEN (Verified Allergy, Unknown, UNKNOWN, 10/09/17) Home Medications Scheduled Dicyclomine Hcl (Bentyl), 2 CAP PO TID Fenofibrate (Tricor), 145 MG PO DAILY Fish Oil (Boqueron-3), 2 CAP PO DAILY Insulin Aspart (Novolog Flexpen), 6 UNITS SQ with afternoon meal Insulin Aspart (Novolog Flexpen), 5 UNITS SQ with am & pm meal Insulin Glargine (Lantus Solostar), 9 UNITS SC QPM Insulin Isophane (Human) (Humulin N Kwikpen), 2 UNITS SC QPM Lactulose (Chronulac), 1 DOSE PO DAILY Lamotrigine (Lamictal), 100 MG PO DAILY Levothyroxine Sodium (Synthroid), 112 MCG PO DAILY Lorazepam (Ativan), 0.5 MG PO DAILY Losartan Potassium (Cozaar), 50 MG PO DAILY Multivitamins/Minerals (Mvi With Minerals), 1 TAB PO DAILY Pantoprazole (Protonix), 40 MG PO DAILY Quetiapine Fumarate Xr (Seroquel Xr Tab), 400 MG PO HS Family History Cancer Diabetes mellitus Hypertension History of Suicide: No History of Substance Abuse: No Psychiatric History: Yes (Paternal grandfather, sister, and cousin with bipolar disorder.) Alcohol Use Alcohol Use In Past 12 Months: No Smoking Use Smoking Status: Never Smoker Substance History Patient denies ever abusing recreational drugs. Personal History Lives in: [place] with her Childhood: Born in [place]. 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 Returned to her PhD studies in her early 50s , but was unable to complete them due to her bipolar disorder. 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 He is now retired. Education: advanced degree (Has a masters in biology, and was working on her PhD when she had her first episode of bipolar disorder.) Relationship History: (x 54 years) Children: 2 adult children Spiritual Affiliation: Restorationist Legal History: none Psychological Trauma History: Emotional Abuse (She states her yells at her at times) Review of Systems 10 systems reviewed, + for weakness, constipation, others negative except as stated above. Examination Vital Signs Vital Signs Past 12 Hours Date Time Temp Pulse Resp B/P (MAP) Pulse Ox O2 Delivery O2 Flow Rate FiO2 10/10/17 07:58 36.4 68 18 177/78 (111) 95 Room Air 10/10/17 04:00 Room Air 10/10/17 03:40 36.5 66 20 155/75 (101) 98 Room Air 10/10/17 00:00 Room Air 10/09/17 23:45 36.9 70 20 181/48 (92) 94 Room Air Laboratory Results Last 24 Hours Test 10/09/17 14:48 10/09/17 16:54 10/09/17 20:11 10/09/17 20:33 Sodium Level 142 mmol/L Potassium Level 5.5 mmol/L Chloride Level 114 mmol/L Carbon Dioxide Level 24 mmol/L Anion Gap 4.0 mmol/L Blood Urea Nitrogen 40 mg/dl Creatinine 1.89 mg/dl Est Creatinine Clear Calc Drug Dose 20.9 ml/min Estimated GFR () 28.7 Estimated GFR (Non- 24.8 BUN/Creatinine Ratio 21.4 Random Glucose 123 mg/dl Calcium Level 8.8 mg/dl Troponin I 0.049 ng/ml 0.040 ng/ml Bedside Glucose 188 mg/dl 241 mg/dl Test 10/10/17 00:45 10/10/17 06:42 10/10/17 07:00 10/10/17 07:20 Urine Color YELLOW Urine Appearance CLOUDY Urine pH 6.5 Urine Specific Wenden 1.018 Urine Protein 3+ Urine Glucose (UA) NEG Urine Ketones NEG Urine Occult Blood NEG Urine Nitrite NEG Urine Bilirubin NEG Urine Urobilinogen NEG Urine Leukocyte Esterase MODERATE Urine WBC (Auto) >30 /hpf Urine RBC (Auto) 0-4 /hpf Urine Hyaline Casts (Auto) 1-5 /lpf Urine Epithelial Cells (Auto) 5-10 /lpf Urine Bacteria (Auto) 4+ White Blood Count 7.43 K/uL Red Blood Count 3.13 M/uL Hemoglobin 9.2 g/dL Hematocrit 28.9 % Mean Corpuscular Volume 92.3 fL Mean Corpuscular Hemoglobin 29.4 pg Mean Corpuscular Hemoglobin Concent 31.8 g/dl RDW Standard Deviation 51.3 fL RDW Coefficient of Variation 15.3 % Platelet Count 237 K/uL Mean Platelet Volume 10.3 fL Sodium Level 141 mmol/L Potassium Level 4.2 mmol/L Chloride Level 112 mmol/L Carbon Dioxide Level 24 mmol/L Anion Gap 5.0 mmol/L Blood Urea Nitrogen 37 mg/dl Creatinine 1.55 mg/dl Est Creatinine Clear Calc Drug Dose 25.4 ml/min Estimated GFR () 36.5 Estimated GFR (Non- 31.5 BUN/Creatinine Ratio 23.8 Random Glucose 54 mg/dl Calcium Level 8.6 mg/dl Bedside Glucose 59 mg/dl 65 mg/dl Test 10/10/17 07:44 Bedside Glucose 153 mg/dl Mental Examination During interview pt is: alert and oriented, cooperative Appearance: appropriately dressed (Hospital gown), appropriately groomed Eye contact is: good Motor behavior is: no abnormal motor movements Speech: normal in rate, rhythm & volume (Accented but clear speech) Affect: euthymic Mood is: other ("I am fine") Thought process: goal directed Thought content: preoccupation (With somatic symptoms -constipation), reality based without delusions Suicidal thought are: denied Homicidal thoughts are: denied Hallucinations: denies auditory, denies visual Cognition: attention grossly intact, language grossly intact Insight: impaired Judgement: impaired Impression / Recommendations Impression 77-year-old female with bipolar disorder who follows with Dr. Castillo is admitted with weakness and a fall, with plans for pacemaker placement due to arrhythmia. She and her were arguing yesterday and became agitated, at which time she made some statements about going home and dying. Today she denies all mood symptoms and thoughts of hurting herself or anyone else, stating that she was frustrated with her forcing her to come into the hospital. She states that her bipolar and anxiety symptoms have been stable on her home regimen and that she is compliant with outpatient treatment. Risk Factors Assessment : No /single/: No Higher / Fall in social status: No Access to guns: No Health problems: Yes Mental Health Diagnoses: Yes Substance use disorders: No Previous attempt: No Family history of suicide: No Previous psychiatric stay: Yes Hopelessness: No Smoker: No Protective Factors Assessment Jew beliefs: Yes : Yes Responsible for young children: No Employed: No Stable relationships: Yes Supportive family: Yes Good rapport with provider: Yes Absence of risk factors above: Yes (Patient denying SI, ) Recommendations (1) Bipolar 1 disorder -Patient is denying active mood symptoms, and appears euthymic on my evaluation today. She did have an episode of irritability yesterday, which she says was triggered by her forcing her to come into the hospital. She has calmed down now and is willing to follow treatment recommendations. -Reviewed her case with Dr. Castillo. Recommend continuing lamotrigine and quetiapine XR, confirmed doses with Dr. Catsillo. -Discontinue Lorazepam due to the many risks given her advanced age, general weakness, multiple falls, and altered mental status. Dr. Castillo is in agreement with this. They have discussed alternatives including gabapentin off label for anxiety. -She is due for fasting lipids and glucose for monitoring on an atypical, and will order those for tomorrow. -Follow up with Dr. Castillo - appointment scheduled for 5/15/18 at 2:45pm. -I will ask the liaison nurse to get a release of information so that records can be shared with Dr. Castillo, and to ensure timely follow-up after discharge. -Patient states she is willing for her in-home help after discharge, and case management is assisting her with arranging that. Agree with referral to Office of Aging.
[2017-10-10] MEDS ORDERED: FENTANYL CITRATE INJ 50 MCG/1 ML 2 ML VIAL ONE (11:16)
[2017-10-10] MEDS ORDERED: CEFAZOLIN SOD 1 GM VIAL ONE (11:16)
[2017-10-10] MEDS ORDERED: MIDAZOLAM HCL 5 MG/ML 1 ML VIAL ONE (11:16)
[2017-10-10] MEDS ORDERED: BACITRACIN 50000 UNIT VIAL ONE (11:17)
[2017-10-10] MEDS ORDERED: LIDOCAINE HCL 1% 20 ML VIAL ONE (11:17)
[2017-10-10] MEDS ORDERED: WATER, STERILE FOR INJ 10 ML VIAL ONE (11:17)
[2017-10-10] MEDS ORDERED: BUPIVACAINE 0.5 % 5 MG/1 ML MPF 30ML VIAL ONE (11:17)
--- NOTE | 2017-10-10 11:23 | Pre Sedation Assessment ---
Pre Sedation Assessment General Date of Sedation: Oct 10, 2017. Vital Signs Past 12 Hours Date Time Temp Pulse Resp B/P (MAP) Pulse Ox O2 Delivery O2 Flow Rate FiO2 10/10/17 11:13 36.4 72 19 172/88 (116) 98 Room Air 10/10/17 07:58 36.4 68 18 177/78 (111) 95 Room Air 10/10/17 04:00 Room Air 10/10/17 03:40 36.5 66 20 155/75 (101) 98 Room Air 10/10/17 00:00 Room Air 10/09/17 23:45 36.9 70 20 181/48 (92) 94 Room Air Review Cardiovascular: regular rate, rhythm Pre-Sedation Airway Assessment Smoking Status: Never Smoker Hx of Sleep Apnea: No Hx of difficult intubation: No Short Thick Neck: No Thyro-mental Distance: > 3 Finger Breadths Oral Cavity: Dental Abnormalities Mallampati Classification: Class III ASA Classification: Class II Procedure Planning Contraindications for Sedation: None Current Medications Reviewed: Yes Notes The planned sedation has been discussed with the patient. Informed Consent was obtained. I have identified the patient, determined the appropriateness of sedation and have assessed the patient immediately prior to the procedure. All medicine(s) and interventions are by my order.
--- NOTE | 2017-10-10 12:26 | Cardiology Procedure Brief Nt ---
Preliminary Cardiology Note Procedure Date Oct 10, 2017. Pre-Procedure Diagnosis symptomatic bradycardia Post-Procedure Diagnosis same Procedure(s) Performed implant dual chamber Medtronic pacemaker Temperature Logging Operator Clarita Evaporator Helper(s) none Estimated Blood Loss 30cc Medication(s) versed fentanyl Preliminary Findings Normal function of dual chamber pacemaker Recommendations keep right arm below shoulder and wound dry Specimens none Complication(s) None Disposition PCU
[2017-10-10] MEDS ORDERED: ACETAMINOPHEN 325 MG TAB PO PRN (12:30)
[2017-10-10] MEDS ORDERED: OXYCODONE/ACETAMINOPHEN 5-325 TAB PO PRN (12:30)
--- NOTE | 2017-10-10 13:38 | [facility] Operative Report ---
Operative Report Date of Service Oct 10, 2017. Operative Report Procedure performed: Implantation of dual-chamber permanent pacemaker Staff lab scientist: Max Otto MD Indication: Patient is a 77-year-old woman without a known cardiac history who presented the day prior to implant with symptomatic bradycardia. Her rhythm at the time of presentation was junctional with heart rates in the 30s. Over the course of the evening her heart rate improved. The not appear to be any reversible cause. She was felt to be a good candidate for permanent pacemaker due to symptomatic non reversible sinus node dysfunction. Dual-chamber device was selected as we wish to maintain AV synchrony and she is currently in sinus rhythm. The patient had undergone prior lumpectomy and lymph node dissection in the left breast. A right-sided implant was therefore favored Procedure in detail: The patient was informed of the risks benefits and alternatives to the intended procedure and she wished to proceed. She was taken to the electrophysiology suite in a fasting state. A preoperative antibiotic had been administered. The patient was monitored electrocardiographically throughout today's procedure and conscious sedation was administered per protocol. The right upper pectoral area is prepped and draped in usual sterile fashion. This area was anesthetized using subcutaneous menstruation of a xylocaine solution. An incision was made at this site and carried down to the prepectoralis fascia using sharp dissection. Electrocautery was also employed for dissection as well as for hemostasis. A device pocket was fashioned tissues above the pectoralis muscle. Subsequent to this maneuver the left axillary vein was accessed using modified Seldinger technique. Sheaths were placed over guidewires at this site and used to facilitate passage of the pacing leads to the respective chambers under fluoroscopic guidance. This included right atrial and right ventricular leads. Adequate sensing and threshold parameters were obtained prior to Active fixation of the leads to the endocardial surface. The proximal portion leads were then sutured the prepectoral fascia using nonabsorbable suture. The device pocket was irrigated with antibiotic solution. The leads were then attached to the device. The device and leads were then placed in the pocket and pocket was closed in 3 layers of absorbable suture. Steri-Strips and sterile dressing were applied. The device was tested noninvasively prior to conclusion the procedure. The patient tolerated procedure well there no immediate complications. Equipment used: New pulse generator: Orthodontic Laboratory Technician CleanEdison. Model number:[id number] serial number [id number] Right atrial lead: Orthodontic Laboratory Technician MedPergunter. Model number: 5076 serial number [id number] Right ventricular lead: Orthodontic Laboratory Technician Medtronic. Model number: [id number] serial number [id number] Measured data: Right atrial lead: P-waves measured 2.5 millivolts pacing threshold was 0.4 volts at 0.4 milliseconds with a pacing impedance of 467 Ohms Right ventricular lead: R-waves measured 8 millivolts pacing threshold was 1 volt at 0.4 milliseconds with a pacing impedance of 718 Ohms Impression: Successful implantation of dual-chamber permanent pacemaker I attest to the content of the Intraoperative Record and any orders documented therein. Any exceptions are noted below.
[2017-10-10] MEDS: PANTOprazole SOD 40 MG TAB PO SCH (14:29)
[2017-10-10] MEDS: LACTULOSE SYRUP 30 GM/45 ML UDP PO SCH (14:29)
[2017-10-10] MEDS: FENOFIBRATE 145 MG TAB PO SCH (14:29)
[2017-10-10] MEDS: HydrALAZINE HCL 20 MG/ML VIAL IV. PRN ×2 (15:37→21:23)
--- NOTE | 2017-10-10 17:49 | Hospitalist Progress Note ---
Hospitalist Progress Note Date of Service Oct 10, 2017. (Tabatha Mcclendon ., VALERIE) Subjective Pt evaluation today including: conversation w/ patient, physical exam, chart review, lab review, conversation w/ network security consultant, review of inpatient medication list Voiding: requires PRN straight cath Ms. Lanier is much calmer today, alert, and coherent. She continues to insist that she wants nothing to do with her daughter. She is to have a pacer placed today. Heart rates have improved - 60s and 70s today ROS Constitutional: no chills, aches, sweats or fever Respiratory: no sob,cough, sputum, or wheezing Cardiac: no chest pain, palpitations, edema, orthopnea or lightheadedness GI: no abdominal pain, nausea, vomiting, diarrhea or constipation : per nursing, patient reports need for straight cath at home due to hesitancy Extremities: no joint pain or weakness Skin: no rash All other systems reviewed and negative (Tabatha Mcclendon CRNP) Medications Medications Administered Medications (Trade) Dose Ordered Sig/Gin Route Start Time Stop Time Status Last Admin Dose Admin Sodium Chloride 1,000 ml @ 999 mls/hr Q1H1M STAT IV 10/09/17 07:39 10/09/17 08:39 DC 10/09/17 07:55 999 MLS/HR Aspirin (Aspirin Chew) 324 mg NOW STAT PO 10/09/17 09:00 10/09/17 09:01 DC 10/09/17 09:00 324 MG Heparin Sodium (Porcine) (Heparin Sq 5000 Unit/0.5ml) 5,000 unit Q12 SQ 10/09/17 21:00 11/08/17 20:59 10/09/17 21:18 5,000 UNIT Sodium Polystyrene Sulfonate (Kayexalate Susp) 15 gm NOW STAT PO 10/09/17 09:38 10/09/17 09:57 DC 10/09/17 10:00 15 GM Levothyroxine Sodium 55 mcg/ Syringe 2.75 ml @ 2 mls/min DAILY@09 IV 10/10/17 09:00 11/09/17 08:59 10/10/17 09:45 2 MLS/MIN Levothyroxine Sodium 55 mcg/ Syringe 2.75 ml @ 2 mls/min NOW ONCE IV 10/09/17 14:30 10/09/17 14:31 DC 10/09/17 16:55 2 MLS/MIN Dicyclomine HCl (Bentyl Tab) 20 mg TID PO 10/09/17 14:00 11/08/17 13:59 10/10/17 14:31 20 MG Fenofibrate (Tricor Tab) 145 mg DAILY PO 10/10/17 09:00 11/09/17 08:59 10/10/17 14:29 145 MG Insulin Glargine (Lantus Solostar Pen) 9 units QPM SC 10/09/17 21:00 10/10/17 08:21 DC 10/09/17 21:17 9 UNITS Lamotrigine (Lamictal Tab) 100 mg DAILY PO 10/10/17 09:00 11/09/17 08:59 10/10/17 14:30 100 MG Pantoprazole Sodium (Protonix Tab) 40 mg DAILY PO 10/10/17 09:00 11/09/17 08:59 10/10/17 14:29 40 MG Quetiapine Fumarate (seroQUEL XR TAB) 400 mg HS PO 10/09/17 21:00 11/08/17 20:59 10/09/17 21:11 400 MG Lactulose (Chronulac Syrup) 30 gm DAILY PO 10/10/17 09:00 11/09/17 08:59 10/10/17 14:29 30 GM Insulin Aspart (novoLOG ASPART) SLIDING SCALE If C... ACHS SC 10/09/17 16:15 11/08/17 16:14 10/09/17 21:17 5 UNITS Sodium Chloride 1,000 ml @ 75 mls/hr [id number] IV 10/09/17 10:15 11/08/17 10:14 10/09/17 23:44 75 MLS/HR Glucose (Glucose 40% Gel) 15-30 GRAMS 15 GRAMS... UD PRN PO 10/09/17 13:30 11/08/17 13:29 10/10/17 07:13 15 GM Dextrose (Dextrose 50% 50ML Syringe) 25-50ML OF 50% DW IV FOR... UD PRN IV 10/09/17 13:30 11/08/17 13:29 10/10/17 12:54 50 ML Sodium Polystyrene Sulfonate (Kayexalate Susp) 15 gm NOW STAT PO 10/09/17 16:39 10/09/17 17:13 DC 10/09/17 17:16 15 GM Hydralazine HCl (HydrALAZINE INJ) 10 mg Q4H PRN IV. 10/10/17 08:30 11/09/17 08:29 10/10/17 15:37 10 MG Ceftriaxone Sodium 1 gm/ Dextrose 50 ml @ 100 mls/hr Q24H IV 10/10/17 10:00 10/20/17 09:59 10/10/17 09:46 100 MLS/HR Fentanyl Citrate (Fentanyl Inj) 100 mcg STK-MED ONCE .ROUTE 10/10/17 11:16 10/10/17 11:17 DC 10/10/17 11:16 75 MCG Midazolam HCl (Versed Inj) 5 mg STK-MED ONCE .ROUTE 10/10/17 11:16 10/10/17 11:17 DC 10/10/17 11:16 3 MG Cefazolin Sodium (Ancef Inj) 1,000 mg STK-MED ONCE .ROUTE 10/10/17 11:16 10/10/17 11:17 DC 10/10/17 11:16 1,000 MG Sterile Water (Sterile Water Inj) 10 ml STK-MED ONCE .ROUTE 10/10/17 11:17 10/10/17 11:18 DC 10/10/17 11:17 10 ML (Tabatha Mcclendon CRNP) Objective Vital Signs Date Time Temp Pulse Resp B/P (MAP) Pulse Ox O2 Delivery O2 Flow Rate FiO2 10/10/17 16:44 194/79 (117) 10/10/17 16:00 Room Air 10/10/17 15:20 37.2 78 18 204/93 (130) 94 Room Air 10/10/17 12:43 36.3 68 20 206/92 (130) 96 Room Air 10/10/17 12:30 65 14 172/76 (108) 96 Room Air 10/10/17 12:15 67 12 180/94 (122) 100 Mask 3 10/10/17 11:13 36.4 72 19 172/88 (116) 98 Room Air 10/10/17 08:00 Room Air 10/10/17 07:58 36.4 68 18 177/78 (111) 95 Room Air 10/10/17 04:00 Room Air 10/10/17 03:40 36.5 66 20 155/75 (101) 98 Room Air 10/10/17 00:00 Room Air 10/09/17 23:45 36.9 70 20 181/48 (92) 94 Room Air 10/09/17 20:00 Room Air 10/09/17 19:33 37.0 42 19 187/75 (112) 98 Room Air (Tabatha Mcclendon CRNP) Physical Exam Notes: General: no distress Eyes: normal inspection, PERLL Respiratory: chest non tender, clear to auscultation, normal breath sounds, no respiratory distress, no accessory muscle use Cardiac: regular rate and rhythm, no rub or gallop, no murmur, no edema, no jvd GI/: active bowel sounds, no abd pain or tenderness, soft, non distended Extremities: normal range of motion, normal strength, non tender Neuro/Psych: alert and oriented x 3, normal mood and affect Skin: normal color, dry (Tabatha Mcclendon CRNP) Laboratory Results Last 24 Hours Test 10/09/17 20:11 10/09/17 20:33 10/10/17 00:45 10/10/17 06:42 Troponin I 0.040 ng/ml Bedside Glucose 241 mg/dl Urine Color YELLOW Urine Appearance CLOUDY Urine pH 6.5 Urine Specific [place] 1.018 Urine Protein 3+ Urine Glucose (UA) NEG Urine Ketones NEG Urine Occult Blood NEG Urine Nitrite NEG Urine Bilirubin NEG Urine Urobilinogen NEG Urine Leukocyte Esterase MODERATE Urine WBC (Auto) >30 /hpf Urine RBC (Auto) 0-4 /hpf Urine Hyaline Casts (Auto) 1-5 /lpf Urine Epithelial Cells (Auto) 5-10 /lpf Urine Bacteria (Auto) 4+ White Blood Count 7.43 K/uL Red Blood Count 3.13 M/uL Hemoglobin 9.2 g/dL Hematocrit 28.9 % Mean Corpuscular Volume 92.3 fL Mean Corpuscular Hemoglobin 29.4 pg Mean Corpuscular Hemoglobin Concent 31.8 g/dl RDW Standard Deviation 51.3 fL RDW Coefficient of Variation 15.3 % Platelet Count 237 K/uL Mean Platelet Volume 10.3 fL Sodium Level 141 mmol/L Potassium Level 4.2 mmol/L Chloride Level 112 mmol/L Carbon Dioxide Level 24 mmol/L Anion Gap 5.0 mmol/L Blood Urea Nitrogen 37 mg/dl Creatinine 1.55 mg/dl Est Creatinine Clear Calc Drug Dose 25.4 ml/min Estimated GFR () 36.5 Estimated GFR (Non- 31.5 BUN/Creatinine Ratio 23.8 Random Glucose 54 mg/dl Calcium Level 8.6 mg/dl Test 10/10/17 07:00 10/10/17 07:20 10/10/17 07:44 10/10/17 12:46 Bedside Glucose 59 mg/dl 65 mg/dl 153 mg/dl 53 mg/dl Test 10/10/17 13:02 10/10/17 13:30 10/10/17 16:18 Bedside Glucose 137 mg/dl 227 mg/dl Urine Opiates Screen NEG Urine Methadone, Qualitative NEG Urine Barbiturates NEG Urine Phencyclidine (PCP) Level NEG Ur Amphetamine/Methamphetamine NEG MDMA (Ecstasy) Screen NEG Urine Benzodiazepines Screen POS Urine Cocaine Metabolite NEG Urine Marijuana (THC) NEG (Tabatha Mcclendon, VALERIE) Assessment and Plan Ms. Lanier is a 77 year old woman here with bradycardia with a junctional rhythm, possibly due to hypothyroid. Pmhx of breast ca, bipolar I, constipation, YEVGENIY, CKD, DMII Bradycardia - continue tele monitoring - EKG showed junctional rhythm in the 30s on admission - troponins - initially 0.67 and trended down - consulted cardiology - for pacer with Dr. Otto today Hyperkalemia - K 5.9 on admission, trended down to 4.2 with two doses of kayexalate yesterday Hypothyroid - TSH 12.8 - unclear if patient has been taking her medication - TSH in April was 2.5 - ordered home dose levothyroxine IV to ensure administration while lethargic and for npo before pacer - now can change back to po CKD III with YEVGENIY - Creat on admission 1.88, trending down to baseline 1.5 today - gentle IVF while NPO - hold losartan DMII - home insulin glargine 9 u hs - patient blood sugars in the 50s this morning, will reduce tonight's dose to 4 units - continue ss, bsgs ac & hs HTN - bps controlled for now - hold losartan as above Bipolar - continue seroquel and lamictal - psych consult - discontinued ativan, lamictal level, drug profile, lipids/a1c Heparin subq Full code (Tabatha Mcclendon ., VALERIE) Supervising Note Dr. Elmore I performed a history and physical examination on the patient. I reviewed above note and agree with it. I discussed plan with APC and patient. During my face to face encounter with the patient, I answered all of the patient's questions. Patient received pacemaker without complications. Updated on her case. Answered all of his questions When I examined patient, she states that she chronically takes milk of magnesium and lactulose for years but it no longer helps. She has went to multiple Gi specialists and non can help her. I explained that she likely became dependent on this and would likely need a to titrate off these meds. Patient however, was asking for a blue pill that was given by Dr. Otto which helped her constipation. Reviewing med ordered did not show any medicine that may have been used for constipation except for lactulose. Told patient that we may try another pill as she does not want to try lactulose. (Monty Emlore M.D.)
[2017-10-10] MEDS: SODIUM CHLORIDE 0.9% 1000ML 1,000 ML IV SCH (19:35)
[2017-10-10] MEDS: INSULIN GLARGINE SOLOSTAR 100 UNITS/ML 3 ML PEN SC SCH (21:22)
[2017-10-10] MEDS ORDERED: DOCUSATE SODIUM/SENNA 50/8.6MG TAB PO ONE (21:30)
[2017-10-10] MEDS: QUETIAPINE FUMARATE 200 MG TABCR PO SCH (22:33)
[2017-10-11] MEDS: SODIUM CHLORIDE 0.9% 1000ML 1,000 ML IV SCH (02:18)
[2017-10-11 04:00] VITALS: BP 152/75; PULSE 79; TEMP 37.3; O2SAT 96
[2017-10-11] MEDS ORDERED: CEFAZOLIN SOD 1000MG/7.5 ML IV PUSH IV SCH (06:00)
[2017-10-11] MEDS: LEVOTHYROXINE 112 MCG TAB PO SCH (06:10)
--- NOTE | 2017-10-11 06:57 | DIAGNOSTIC IMAGING REPORT ---
CHEST 2 VIEWS ROUTINE CLINICAL HISTORY: Pacemaker insertion. COMPARISON STUDY: Chest radiograph October 09, 2017. FINDINGS: There has been interval placement of a dual lead right subclavian pacemaker. Lead tips project over the right atrial appendage and right ventricle. There is no pneumothorax. There is no evidence for pulmonary edema. Note is made of trace bilateral pleural effusions. Right basilar opacities have improved. IMPRESSION: 1. No pneumothorax following placement of a dual lead right subclavian pacemaker. 2. Trace bilateral pleural effusions with interval improvement in bibasilar airspace opacities. Electronically signed by: Memo Joya M.D. 10/11/2017 6:55 AM Dictated Date/Time: 10/11/2017 6:54 AM
[2017-10-11 07:30] VITALS: BP 185/74; PULSE 80; TEMP 37.1; O2SAT 95
[2017-10-11 08:24] LABS: HEMATOCRIT 28.9 % (37-47); HEMOGLOBIN 9.5 g/dL (12.0-16.0); MEAN CELL VOLUME 90.9 fL (80-100); MEAN CORPUSCULAR HEMOGLOBIN 29.9 pg (25-34); MEAN CORPUSCULAR HGB CONC 32.9 g/dl (32-36); MEAN PLATELET VOLUME 10.1 fL (7.4-10.4); PLATELET COUNT 240 K/uL (130-400); RED CELL DISTRIBUTION WIDTH SD 50.1 fL (36.4-46.3); WHITE BLOOD COUNT 6.18 K/uL (4.8-10.8)
--- NOTE | 2017-10-11 08:49 | Cardiology Follow-Up ---
Subjective Date of Service: Oct 11, 2017. Pt evaluation today including: conversation w/ patient, physical exam, chart review, lab review, review of studies, review of inpatient medication list History of Present Illness This morning the patient claims to be feeling well. She has some mild discomfort at the pacemaker implantation site. Her main concern is constipation. She reports not having had a bowel movement for 2 days despite laxatives administration. Social History Smoking Status: Never Smoker History of Alcohol Use: Yes (4 oz wine with dinner) Review of Systems Per HPI. Good appetite. Objective Vital Signs Past 12 Hours Date Time Temp Pulse Resp B/P (MAP) Pulse Ox O2 Delivery O2 Flow Rate FiO2 10/11/17 07:30 37.1 80 20 185/74 (111) 95 Room Air 10/11/17 04:00 37.3 79 18 152/75 (100) 96 Room Air 10/11/17 04:00 Room Air 10/11/17 00:00 Room Air 10/10/17 23:45 37.3 85 20 156/69 (98) 100 Room Air Last Recorded Weight-Kilograms: 57.700 Physical Exam She is alert and oriented x3. Mood affect appear normal. She answered all questions appropriately. HEENT: Sclerae are anicteric. Pupils are equal and reactive to light and accommodation. Extraocular movements were intact. Neuro: Cranial nerves intact Chest: Pacemaker implantation site on the right upper pectoral area appears to be healing well. No hematoma. No drainage or significant erythema. No ecchymosis. Data Laboratory Results: Last 24 Hours Test 10/10/17 12:46 10/10/17 13:02 10/10/17 13:30 10/10/17 16:18 Bedside Glucose 53 mg/dl 137 mg/dl 227 mg/dl Urine Opiates Screen NEG Urine Methadone, Qualitative NEG Urine Barbiturates NEG Urine Phencyclidine (PCP) Level NEG Ur Amphetamine/Methamphetamine NEG MDMA (Ecstasy) Screen NEG Urine Benzodiazepines Screen POS Urine Cocaine Metabolite NEG Urine Marijuana (THC) NEG Test 10/10/17 20:43 10/11/17 06:54 10/11/17 08:14 Bedside Glucose 148 mg/dl 97 mg/dl White Blood Count 6.18 K/uL Red Blood Count 3.18 M/uL Hemoglobin 9.5 g/dL Hematocrit 28.9 % Mean Corpuscular Volume 90.9 fL Mean Corpuscular Hemoglobin 29.9 pg Mean Corpuscular Hemoglobin Concent 32.9 g/dl RDW Standard Deviation 50.1 fL RDW Coefficient of Variation 15.0 % Platelet Count 240 K/uL Mean Platelet Volume 10.1 fL Imaging: Chest x-ray demonstrates stable lead position without evidence of pneumothorax EKG: Sinus rhythm I performed a complete device interrogation which revealed normal function of both the atrial ventricular leads. Assessment and Plan 1. Bradycardia: This appears to be resolved. It is unclear what precipitated her junctional bradycardia. This very likely this did contribute to her presentation in the associated symptoms. As there was no definable reversible cause a pacemaker was implanted yesterday. This appears to have gone without complication. At this point we would recommend standard hernia precautions which include keeping the wound dry and Steri-Strips intact for few days until follow-up in the outpatient setting. She should refrain from lifting the right arm above her shoulder or behind her neck for 6 weeks.
[2017-10-11] MEDS: INSULIN ASPART 100 UNITS/ML 3 ML PEN SC SCH ×4 (08:55→20:02)
[2017-10-11] MEDS: FENOFIBRATE 145 MG TAB PO SCH (08:56)
[2017-10-11] MEDS: PANTOprazole SOD 40 MG TAB PO SCH (08:56)
[2017-10-11] MEDS: CEROVITE ADV FORMULA TAB PO SCH (08:56)
[2017-10-11] MEDS: DICYCLOMINE HCL 20 MG TAB PO SCH ×3 (08:56→20:01)
[2017-10-11] MEDS: LACTULOSE SYRUP 30 GM/45 ML UDP PO SCH (08:56)
[2017-10-11 08:57] LABS: CALCIUM 8.4 mg/dl (8.5-10.1); CREATININE 1.53 mg/dl (0.60-1.20)
[2017-10-11] MEDS: CEFTRIAXONE SOD INJ 1 GM in DEXTROSE 5% ADD-VANTAGE 50ML 50 ML IV SCH (08:57)
[2017-10-11] MEDS: HEPARIN SOD 5000 UNIT/0.5 ML CARP SQ SCH ×2 (09:00→21:44)
[2017-10-11 11:30] VITALS: BP 187/88; PULSE 75; TEMP 37.1; O2SAT 94
[2017-10-11] MEDS ORDERED: BISACODYL 10 MG SUPP PR STA (11:45)
[2017-10-11 14:11] VITALS: Ht 162.6 cm; Wt 59.8 kg
[2017-10-11] MEDS: HydrALAZINE HCL 20 MG/ML VIAL IV. PRN (14:29)
--- NOTE | 2017-10-11 14:55 | Hospitalist Progress Note ---
Hospitalist Progress Note Date of Service Oct 11, 2017. (Tabatha Mcclendon CRNP) Subjective Pt evaluation today including: conversation w/ patient, physical exam, chart review, lab review, review of inpatient medication list Voiding: no voiding problems Ms. Lanier is very distraught this morning due to her 's declining mental status. She states that she does not want to live. On further questioning, she does not want to hurt herself but she does wish "for God to take me" so she does not have to suffer anymore. She feels very alone because she has no help and is exhausted from taking care of her . We did discuss the referral to the [facility] being made through CM which she agreed was a good idea. We also discussed seeking some counseling. ROS Constitutional: no chills, aches, sweats or fever Respiratory: no sob,cough, sputum, or wheezing Cardiac: no chest pain, palpitations, edema, orthopnea or lightheadedness GI: no abdominal pain, nausea, vomiting, diarrhea or constipation : no dysuria or hesitancy Extremities: no joint pain or weakness Skin: no rash All other systems reviewed and negative (Tabatha Mcclendon .VALERIE) Medications Medications Administered Medications (Trade) Dose Ordered Sig/Ign Route Start Time Stop Time Status Last Admin Dose Admin Sodium Chloride 1,000 ml @ 999 mls/hr Q1H1M STAT IV 10/09/17 07:39 10/09/17 08:39 DC 10/09/17 07:55 999 MLS/HR Aspirin (Aspirin Chew) 324 mg NOW STAT PO 10/09/17 09:00 10/09/17 09:01 DC 10/09/17 09:00 324 MG Heparin Sodium (Porcine) (Heparin Sq 5000 Unit/0.5ml) 5,000 unit Q12 SQ 10/09/17 21:00 11/08/17 20:59 10/11/17 09:00 5,000 UNIT Sodium Polystyrene Sulfonate (Kayexalate Susp) 15 gm NOW STAT PO 10/09/17 09:38 10/09/17 09:57 DC 10/09/17 10:00 15 GM Levothyroxine Sodium 55 mcg/ Syringe 2.75 ml @ 2 mls/min DAILY@09 IV 10/10/17 09:00 10/10/17 17:47 DC 10/10/17 09:45 2 MLS/MIN Levothyroxine Sodium 55 mcg/ Syringe 2.75 ml @ 2 mls/min NOW ONCE IV 10/09/17 14:30 10/09/17 14:31 DC 10/09/17 16:55 2 MLS/MIN Dicyclomine HCl (Bentyl Tab) 20 mg TID PO 10/09/17 14:00 11/08/17 13:59 10/11/17 12:23 20 MG Fenofibrate (Tricor Tab) 145 mg DAILY PO 10/10/17 09:00 11/09/17 08:59 10/11/17 08:56 145 MG Insulin Glargine (Lantus Solostar Pen) 9 units QPM SC 10/09/17 21:00 10/10/17 08:21 DC 10/09/17 21:17 9 UNITS Lamotrigine (Lamictal Tab) 100 mg DAILY PO 10/10/17 09:00 11/09/17 08:59 10/11/17 08:56 100 MG Multivitamins/ Minerals (Multivitamin W/ Minerals Tab) 1 tab DAILY PO 10/10/17 09:00 11/09/17 08:59 10/11/17 08:56 1 TAB Pantoprazole Sodium (Protonix Tab) 40 mg DAILY PO 10/10/17 09:00 11/09/17 08:59 10/11/17 08:56 40 MG Quetiapine Fumarate (seroQUEL XR TAB) 400 mg HS PO 10/09/17 21:00 11/08/17 20:59 10/10/17 22:33 400 MG Lactulose (Chronulac Syrup) 30 gm DAILY PO 10/10/17 09:00 11/09/17 08:59 10/11/17 08:56 30 GM Insulin Aspart (novoLOG ASPART) SLIDING SCALE If C... ACHS SC 10/09/17 16:15 11/08/17 16:14 10/11/17 12:22 1 UNITS Sodium Chloride 1,000 ml @ 75 mls/hr [id number] IV 10/09/17 10:15 10/11/17 08:13 DC 10/11/17 02:18 75 MLS/HR Glucose (Glucose 40% Gel) 15-30 GRAMS 15 GRAMS... UD PRN PO 10/09/17 13:30 11/08/17 13:29 10/10/17 07:13 15 GM Dextrose (Dextrose 50% 50ML Syringe) 25-50ML OF 50% DW IV FOR... UD PRN IV 10/09/17 13:30 11/08/17 13:29 10/10/17 12:54 50 ML Sodium Polystyrene Sulfonate (Kayexalate Susp) 15 gm NOW STAT PO 10/09/17 16:39 10/09/17 17:13 DC 10/09/17 17:16 15 GM Insulin Glargine (Lantus Solostar Pen) 4 units QPM SC 10/10/17 21:00 11/08/17 20:59 10/10/17 21:22 4 UNITS Hydralazine HCl (HydrALAZINE INJ) 10 mg Q4H PRN IV. 10/10/17 08:30 11/09/17 08:29 10/11/17 14:29 10 MG Ceftriaxone Sodium 1 gm/ Dextrose 50 ml @ 100 mls/hr Q24H IV 10/10/17 10:00 10/20/17 09:59 10/11/17 08:57 100 MLS/HR Fentanyl Citrate (Fentanyl Inj) 100 mcg STK-MED ONCE .ROUTE 10/10/17 11:16 10/10/17 11:17 DC 10/10/17 11:16 75 MCG Midazolam HCl (Versed Inj) 5 mg STK-MED ONCE .ROUTE 10/10/17 11:16 10/10/17 11:17 DC 10/10/17 11:16 3 MG Cefazolin Sodium (Ancef Inj) 1,000 mg STK-MED ONCE .ROUTE 10/10/17 11:16 10/10/17 11:17 DC 10/10/17 11:16 1,000 MG Sterile Water (Sterile Water Inj) 10 ml STK-MED ONCE .ROUTE 10/10/17 11:17 10/10/17 11:18 DC 10/10/17 11:17 10 ML Levothyroxine Sodium (Synthroid Tab) 112 mcg DAILYBB PO 10/11/17 06:00 11/10/17 05:59 10/11/17 06:10 112 MCG Bisacodyl (Dulcolax Supp) 10 mg NOW STAT [place] 10/11/17 11:45 10/11/17 11:53 DC 10/11/17 12:21 10 MG (Tabatha Mcclendon CRNP) Objective Vital Signs Date Time Temp Pulse Resp B/P (MAP) Pulse Ox O2 Delivery O2 Flow Rate FiO2 10/11/17 12:00 Room Air 10/11/17 11:30 37.1 75 20 187/88 (121) 94 Room Air 10/11/17 08:00 Room Air 10/11/17 07:30 37.1 80 20 185/74 (111) 95 Room Air 10/11/17 04:00 37.3 79 18 152/75 (100) 96 Room Air 10/11/17 04:00 Room Air 10/11/17 00:00 Room Air 10/10/17 23:45 37.3 85 20 156/69 (98) 100 Room Air 10/10/17 20:45 36.2 78 16 196/83 (120) 99 Room Air 80 192/84 (120) 80 203/89 (127) 10/10/17 20:00 Room Air 10/10/17 16:44 194/79 (117) 10/10/17 16:00 Room Air 10/10/17 15:20 37.2 78 18 204/93 (130) 94 Room Air (Tabatha Mcclendon CRNP) Physical Exam Notes: General: no distress Eyes: normal inspection, PERLL Respiratory: chest non tender, clear to auscultation, normal breath sounds, no respiratory distress, no accessory muscle use Cardiac: regular rate and rhythm, no rub or gallop, no murmur, no edema, no jvd GI/: active bowel sounds, no abd pain or tenderness, soft, non distended Extremities: normal range of motion, normal strength, non tender Neuro/Psych: alert and oriented x 3, normal mood and affect Skin: normal color, dry (Tabatha Mcclendon CRNP) Laboratory Results Last 24 Hours Test 10/10/17 16:18 10/10/17 20:43 10/11/17 06:54 10/11/17 08:14 Bedside Glucose 227 mg/dl 148 mg/dl 97 mg/dl White Blood Count 6.18 K/uL Red Blood Count 3.18 M/uL Hemoglobin 9.5 g/dL Hematocrit 28.9 % Mean Corpuscular Volume 90.9 fL Mean Corpuscular Hemoglobin 29.9 pg Mean Corpuscular Hemoglobin Concent 32.9 g/dl RDW Standard Deviation 50.1 fL RDW Coefficient of Variation 15.0 % Platelet Count 240 K/uL Mean Platelet Volume 10.1 fL Sodium Level 142 mmol/L Potassium Level 4.0 mmol/L Chloride Level 112 mmol/L Carbon Dioxide Level 25 mmol/L Anion Gap 5.0 mmol/L Blood Urea Nitrogen 28 mg/dl Creatinine 1.53 mg/dl Est Creatinine Clear Calc Drug Dose 25.8 ml/min Estimated GFR () 37.1 Estimated GFR (Non- 32.0 BUN/Creatinine Ratio 18.4 Random Glucose 152 mg/dl Calcium Level 8.4 mg/dl Triglycerides Level 188 mg/dl Cholesterol Level 159 mg/dl HDL Cholesterol 59 mg/dl LDL Cholesterol, Calculated 62 mg/dl VLDL Cholesterol, Calculated 38 mg/dl Cholesterol/HDL Ratio 2.7 Test 10/11/17 11:37 10/11/17 14:10 Bedside Glucose 166 mg/dl (Tabatha Mcclendon, VALERIE) Assessment and Plan Ms. Lanier is a 77 year old woman here with bradycardia with a junctional rhythm, possibly due to hypothyroid. Pmhx of breast ca, bipolar I, constipation, YEVGENIY, CKD, DMII Bradycardia - continue tele monitoring - EKG showed junctional rhythm in the 30s on admission - NSR - troponins - initially 0.67 and trended down - consulted cardiology - for pacer with Dr. Otto today Hyperkalemia - K 5.9 on admission, trended down to 4.2 with two doses of kayexalate Hypothyroid - TSH 12.8 - unclear if patient has been taking her medication - TSH in April was 2.5 - ordered home dose levothyroxine IV to ensure administration while lethargic and for npo before pacer - now po CKD III with YEVGENIY - Creat on admission 1.88, trending down to baseline 1.5 today - dc IVF - can restart losartan DMII - home insulin glargine 9 u hs - patient blood sugars in the 50s yesterday morning,continue reduced dose of 4 units - continue ss, bsgs ac & hs HTN - restart losartan now that kidneys at baseline Bipolar - continue seroquel and lamictal - psych consult - discontinued ativan, lamictal level, drug profile, lipids/a1c Heparin subq Full code (Tabatha Mcclendon, VALERIE) Supervising Note Dr. Elmore I performed a history and physical examination on the patient. I reviewed above note and agree with it. I discussed plan with APC and patient. During my face to face encounter with the patient, I answered all of the patient's questions. Levothyroxine was changed to PO today. Will discharge patient unsure if will discharge with de león or not. And have her followup with Urology. Currently on antibiotics for cystitis (Monty Elmore M.D.)
[2017-10-11 15:14] VITALS: BP 131/68; PULSE 87; TEMP 37.2; O2SAT 95
[2017-10-11 18:51] VITALS: BP 176/82; PULSE 81; TEMP 36.6; O2SAT 96
[2017-10-11] MEDS: QUETIAPINE FUMARATE 200 MG TABCR PO SCH (20:00)
[2017-10-11] MEDS: INSULIN GLARGINE SOLOSTAR 100 UNITS/ML 3 ML PEN SC SCH (21:43)
[2017-10-11 23:42] VITALS: BP 178/75; PULSE 89; TEMP 37.2; O2SAT 97
[2017-10-12 04:21] VITALS: BP 181/83; PULSE 76; TEMP 36.6; O2SAT 96
[2017-10-12] MEDS: HydrALAZINE HCL 20 MG/ML VIAL IV. PRN (04:43)
[2017-10-12] MEDS: LEVOTHYROXINE 112 MCG TAB PO SCH (06:10)
[2017-10-12 06:19] LABS: HEMATOCRIT 28.4 % (37-47); HEMOGLOBIN 9.3 g/dL (12.0-16.0); MEAN CORPUSCULAR HEMOGLOBIN 29.8 pg (25-34); MEAN CORPUSCULAR HGB CONC 32.7 g/dl (32-36); MEAN PLATELET VOLUME 10.3 fL (7.4-10.4); PLATELET COUNT 232 K/uL (130-400); RED CELL DISTRIBUTION WIDTH CV 14.9 % (11.5-14.5); RED CELL DISTRIBUTION WIDTH SD 48.9 fL (36.4-46.3); WHITE BLOOD COUNT 5.56 K/uL (4.8-10.8)
[2017-10-12 06:54] LABS: CREATININE 1.55 mg/dl (0.60-1.20); POTASSIUM 3.8 mmol/L (3.5-5.1)
[2017-10-12] MEDS: INSULIN ASPART 100 UNITS/ML 3 ML PEN SC SCH ×2 (07:00→12:30)
[2017-10-12 07:09] LABS: HEMOGLOBIN A1C 6.5 % (4.5-5.6)
[2017-10-12 07:46] VITALS: BP 161/72; PULSE 85; TEMP 37; O2SAT 94
[2017-10-12] MEDS ORDERED: LOSARTAN POTASSIUM 50 MG TAB PO SCH (09:00)
[2017-10-12] MEDS: DICYCLOMINE HCL 20 MG TAB PO SCH ×2 (09:27→12:32)
[2017-10-12] MEDS: LACTULOSE SYRUP 30 GM/45 ML UDP PO SCH (09:28)
[2017-10-12] MEDS: PANTOprazole SOD 40 MG TAB PO SCH (09:29)
[2017-10-12] MEDS: CEROVITE ADV FORMULA TAB PO SCH (09:29)
[2017-10-12] MEDS: HEPARIN SOD 5000 UNIT/0.5 ML CARP SQ SCH (09:30)
[2017-10-12] MEDS: FENOFIBRATE 145 MG TAB PO SCH (09:31)
[2017-10-12] MEDS: CEFTRIAXONE SOD INJ 1 GM in DEXTROSE 5% ADD-VANTAGE 50ML 50 ML IV SCH (09:33)
[2017-10-12] MEDS ORDERED: INSDGIPEN SC (12:59)
[2017-10-12] MEDS ORDERED: CEFP200T14 PO (12:59)
[2017-10-12] MEDS ORDERED: AMLO5TAB2 PO (12:59)
--- NOTE | 2017-10-12 13:04 | Discharge Instructions ---
Discharge Instructions Date of Service Oct 12, 2017. Admission Reason for Admission: Bradycardia Discharge Discharge Diagnosis / Problem: Bradycardia Discharge Goals Goal(s): Decrease discomfort, Improve function Activity Recommendations Activity Limitations: as noted below . Refrain from lifting the right arm above her shoulder or behind her neck for 6 weeks. Instructions / Follow-Up Instructions / Follow-Up Follow up with Cardiology within 1 week Followup with PCP in 1 week. Followup with Urology in regards to urinary incontinence Recommend standard hernia precautions which include keeping the wound dry and Steri-Strips intact for few days until follow-up in the outpatient setting. She should refrain from lifting the right arm above her shoulder or behind her neck for 6 weeks. Current Hospital Diet Patient's current hospital diet: AHA Diet (Heart Healthy), Diabetes Type 2 Diet Discharge Diet Recommended Diet: AHA Diet (Heart Healthy), Diabetes Type 2 Diet Pending Studies Studies pending at discharge: no Laboratory Results Hemoglobin A1c Test 10/11/17 08:14 Range/Units Estimated Average Glucose 140 mg/dl Hemoglobin A1c 6.5 H 4.5-5.6 % Lipid Panel Test 10/12/17 05:58 Range/Units Triglycerides Level 198 H 0-150 mg/dl Cholesterol Level 162 0-200 mg/dl HDL Cholesterol 53 mg/dl Cholesterol/HDL Ratio 3.1 LDL Cholesterol, Calculated 69 mg/dl Medical Emergencies . Who to Call and When: Medical Emergencies: If at any time you feel your situation is an emergency, please call 911 immediately. . Non-Emergent Contact Non-Emergency issues call your: Primary Care Provider Call Non-Emergent contact if: you have any medication questions . . "Provider Documentation" section prepared by Monty Elmore. .
[2017-10-12] MEDS ORDERED: AMLODIPINE BESYLATE 5 MG TAB PO STA (13:05)
--- NOTE | 2017-10-12 13:05 | Discharge Summary ---
Discharge Summary Date of Service Oct 12, 2017. Discharge Summary Admission Date: Oct 09, 2017 at 09:55 Discharge Date: Oct 12, 2017 Problems/Secondary Diagnoses: (1) Anemia Status: Chronic (2) BIPOL I, MOST RECENT EPISODE (OR CURRENT) UNSPECIFIED Status: Chronic (3) Chronic idiopathic anal pain Status: Chronic (4) Constipation Status: Chronic (5) Diabetes Status: Chronic (6) Heart disease Status: Chronic (7) Hyperlipidemia, Unspecified Status: Chronic (8) Hypertension Status: Chronic (9) Hypothyroidism Status: Chronic (10) Stage 3 chronic kidney disease Status: Chronic Immunizations: Have You Had Influenza Vaccine: No Influenza Vaccine Date: Sep 21, 2005 History of Tetanus Vaccine?: UTD History of Pneumococcal: No History of Hepatitis B Vaccine: No Hospital Course Supervising Note Dr. Elmore I performed a history and physical examination on the patient. I reviewed above note and agree with it. I discussed plan with APC and patient. During my face to face encounter with the patient, I answered all of the patient's questions. Levothyroxine was changed to PO today. Will discharge patient unsure if will discharge with de león or not. And have her followup with Urology. Currently on antibiotics for cystitis This includes examination of the patient, discharge planning, medication reconciliation, and communication with other providers. Discharge Instructions Please refer to the electronic Patient Visit Report (Discharge Instructions) for additional information.
[2017-10-12] MEDS ORDERED: BISA-16 PO (13:25)
[2017-10-12 15:09] VITALS: BP 161/72; PULSE 85; TEMP 37; O2SAT 94
== END 2017-10-12 16:23 | disposition home or self-care (01) | DRG 243 ==
LOC: EDBD 07:34 → C.EDB 07:36 → C.2T 09:55 → ENRESERV 12:17
PROVIDERS: ADMIT Internal Medicine Sports Medicine; ATTEND Internal Medicine Sports Medicine
PROC: 0JH606Z Insertion of Pacemaker, Dual Chamber into Chest Subcutaneous Tissue and Fascia, Open Approach (ICD-10-PCS; principal; 2017-10-10 10:38)
PROC: 02H63JZ Insertion of Pacemaker Lead into Right Atrium, Percutaneous Approach (ICD-10-PCS; principal; 2017-10-10 10:38)
PROC: 02HK3JZ Insertion of Pacemaker Lead into Right Ventricle, Percutaneous Approach (ICD-10-PCS; principal; 2017-10-10 10:38)
DX: R00.1 Bradycardia, unspecified (principal); N17.9 Acute kidney failure, unspecified; Z83.3 Family history of diabetes mellitus; Z82.49 Family history of ischemic heart disease and other diseases of the circulatory system; Z79.4 Long term (current) use of insulin; E87.5 Hyperkalemia; E03.9 Hypothyroidism, unspecified; N18.3 Chronic kidney disease, stage 3 (moderate); E11.9 Type 2 diabetes mellitus without complications; I10 Essential (primary) hypertension; F31.9 Bipolar disorder, unspecified; Z85.3 Personal history of malignant neoplasm of breast; K59.00 Constipation, unspecified; E06.3 Autoimmune thyroiditis

== ENCOUNTER 2017-11-06 13:56 | Observation (INO) | payer BC, OTHER ==
[~2017-11-06] VITALS: Ht 162.6 cm; Wt 53.5 kg
[~2017-11-06 13:56] MED LIST changes: +AMLO5TAB2 PO; +BISA-16 PO; -INSU1INJ23 SC; +LCTS240 PO; -LORA-741 PO; -LOSA100T65 PO; +LOSA50TA6 PO; -NVLGI/PEN SQ
--- NOTE | 2017-11-06 14:54 | EMERGENCY ROOM VISIT NOTE ---
History First contact with patient: 14:03 (Miguelangel Galvez MD) First contact with patient: 14:03 (Shahbaz Dozier M.D.) Chief Complaint: FALL Stated Complaint: FALL History of Present Illness The patient is a 77 year old female who presents to the Emergency Room after experiencing a fall at home She was brought in by ambulance this afternoon after falling onto her backside. She notes that she hasn't tried walking since the fall. She fell yesterday when going outside to get the mail and fell and hit her head therefore she has a bruise on her lips. She has fallen 30 times since June due to weakness on her legs (she notes that her legs have always been weak). She says she has hit her head on several occasions. She has had PT come to her house to help with her strength and she has also had a chiropractor come to her house. She notes that she has been looking after her who has dementia and he has been very demanding of her and does not allow her to get extra help at home for cleaning purposes. She did have a pacemaker placed recently at [facility] due to a heartbeat in the 30's. She notes that she has been self catheterizing daily for the past several years. Source of History: patient Onset: yesterday Position: lip Symptom Intensity: mild Quality: ache (Miguelangel Galvez MD) Review of Systems CONSTITUTIONAL: No fever, chills, sweats or night sweats. No recent infections. No weight loss or weight gain. NEUROLOGIC: No headaches, dizziness or syncopal episodes. HEENT: No hearing or visual changes. No sinus or nasal issues. No mouth sores, thrush or oral lesions. CARDIOVASCULAR: No chest pain or palpitations. RESPIRATORY: No SOB, dyspnea, cough or hemoptysis. GASTROINTESTINAL: No nausea, vomiting, diarrhea, reflux, melena or hematochezia. She has been constipated GENITOURINARY: No dysuria, frequency, urgency, incontinence or hematuria. MUSCULOSKELETAL: leg weakness bilaterally, no back pain, leg pain, neck pain, joint pain or rashes SKIN: No rashes or skin lesions. No hair loss or nail changes. Bruise of her lips (Miguelangel Galvez MD) See HPI for pertinent positives and negatives. A total of ten systems were reviewed and were otherwise negative. (Shahbaz Dozier M.D.) Past Medical/Surgical History Medical Problems: (1) Abdominal pain (2) Acute kidney failure (3) Anemia (4) BIPOL I, MOST RECENT EPISODE (OR CURRENT) UNSPECIFIED (5) Bipolar 1 disorder (6) Bradycardia (7) Chronic idiopathic anal pain (8) Constipation (9) Constipation (10) Constipation (11) Constipation (12) Constipation (13) Constipation (14) Constipation (15) Dehydration (16) Diabetes (17) Elevated troponin (18) Epigastric pain (19) Heart disease (20) Hyperlipidemia, Unspecified (21) Hypertension (22) Hyponatremia (23) Hypothyroidism (24) Intractable nausea and vomiting (25) Malignant neoplasm of breast (26) Mass of anus (27) Rectal pain, chronic (28) Rectal prolapse (29) Sacral back pain (30) Stage 3 chronic kidney disease (31) Urinary tract infection Surgical Problems: (1) Hx of cholecystectomy (2) Hysterectomy (Shahbaz Dozier M.D.) Family History Cancer Diabetes mellitus Hypertension (Miguelangel Galvez MD) Cancer Diabetes mellitus Hypertension (Shahbaz Dozier M.D.) Social History Smoking Status: Never Smoker Alcohol Use: none Drug Use: none Marital Status: Housing Status: lives with family Occupation Status: employed (Miguelangel Galvez MD) Current/Historical Medications Scheduled Amlodipine Besylate (Norvasc), 1 TAB PO HS Bisacodyl (Dulcolax), 2 TAB PO Q2D Fenofibrate (Tricor), 145 MG PO DAILY Fish Oil ([place]-3), 2 CAP PO DAILY Glucagon (Glucagon Emergency Kit), 1 DOSE INJ UD Insulin Aspart (Novolog Flexpen), 5 UNITS SQ with am & pm meal Insulin Glargine (Lantus Solostar), 8 UNITS SC QPM Lactulose (Chronulac), 30 ML PO BID Lamotrigine (Lamictal), 100 MG PO DAILY Levothyroxine Sodium (Synthroid), 112 MCG PO DAILY Losartan Potassium (Cozaar), 50 MG PO DAILY Magnesium Citrate (Magnesium Citrate), 8-10 OZ PO BID Multivitamins/Minerals (Mvi With Minerals), 1 TAB PO DAILY Pantoprazole (Protonix), 40 MG PO DAILY Quetiapine Fumarate Xr (Seroquel Xr Tab), 400 MG PO HS Physical Exam Vital Signs Date Time Temp Pulse Resp B/P (MAP) Pulse Ox O2 Delivery O2 Flow Rate FiO2 11/06/17 15:54 60 18 179/69 97 Room Air 11/06/17 14:12 60 11/06/17 13:56 37.0 60 24 153/60 92 Room Air 11/06/17 13:56 37.0 60 24 153/60 92 Room Air (Shahbaz Dozier M.D.) Physical Exam HEENT: Head - normocephalic and atraumatic. Pupils are equal, round, and reactive to light. Extraocular eye muscles are intact and sclera are anicteric. Ears - bilaterally patent canals with noninjected tympanic membranes and no evidence of hemotympanum. Nose - moist nasal mucosa without discharge. Mouth - moist buccal mucosa. Oropharynx is nonerythematous and there is no tonsillar exudate or edema noted. Neck: Supple; no JVD, nuchal rigidity, cervical lymphadenopathy, or auscultated bruits. Heart: Regular rate and rhythm. There is a normal S1 and S2 with no murmurs, clicks, or gallops appreciated. Lungs: Clear to auscultation bilaterally with no wheezes, rales, or rhonchi. Abdomen: Soft, completely nontender, nondistended, with good bowel sounds. There are no palpable pulsatile masses or hepatosplenomegaly. There is no guarding, rigidity, or rebound noted. Extremities: +1 edema in the left leg, slightly decrease power of the left leg compared to the right leg, sensation intact and +2 patellar reflexes bilaterally Neuro:The patient is awake and alert, oriented to day, time, and place. The patient has equal service delivery manager strength and equal pedal push and pull. There are no cerebellar signs. (Miguelangel Galvez MD) Medical Decision & Procedures ER Provider Diagnostic Interpretation: Radiology studies were reviewed by myself and the radiologist CT SCAN OF THE CERVICAL SPINE CLINICAL HISTORY: Fall with head injury. COMPARISON STUDY: No priors. TECHNIQUE: CT scan of the cervical spine is performed from the skull base to the upper thoracic spine. Images are reviewed in the axial, sagittal, and coronal planes. IV contrast was not administered for this examination. A dose lowering technique was utilized adhering to the principles of ALARA. CT DOSE: 452.98 mGycm FINDINGS: Skeletal structures: The skeletal structures are osteopenic. There is no evidence of fracture or subluxation involving the cervical spine. There is a minimal superior endplate compression deformity of C7, as well as a mild to moderate superior endplate compression deformity of T1. These are age indeterminant. Vertebral body height is otherwise maintained. Alignment is preserved. There is straightening of the cervical lordosis with reversal centered at C4. The odontoid process and lateral masses are intact. The atlantoaxial articulation is preserved. The spinous processes appear intact. There is mild multilevel cervical spondylosis. Uncovertebral and facet arthropathy are seen at several levels. Intervertebral discs: The disc spaces are well maintained. Central canal: Grossly patent. Soft tissues: The prevertebral and paraspinous soft tissues are within normal limits. There is atherosclerotic calcification of the carotid bulbs. Pacemaker leads are noted in the right axillary region. Calvarium: The visualized calvarium at the skull base appears intact. Brain parenchyma: Partially visualized brain parenchyma the skull base is within normal limits. Sinuses and mastoids: The visualized paranasal sinuses are clear. The mastoid air cells are well pneumatized. Lung apices: Clear as visualized. IMPRESSION: 1. There is no evidence of fracture or subluxation involving the cervical spine. 2. A minimal superior endplate compression deformity of C7 and a mild to moderate superior endplate compression deformity of T1 are age indeterminant but likely chronic. Correlate for point tenderness at these levels. 3. Osteopenia and spondylotic change as above. Electronically signed by: Josesito Schmitt M.D. 11/06/2017 4:25 PM Dictated Date/Time: 11/06/2017 4:15 PM HEAD WITHOUT CONTRAST (CT) CLINICAL HISTORY: 77 years-old Female presenting with Fall with hit of head. TECHNIQUE: Multidetector CT imaging of the head was performed without the use of intravenous contrast. IV contrast: None. A dose lowering technique was used consistent with the principles of ALARA (as low as reasonably achievable). COMPARISON: 03/11/2017. CT DOSE (mGy.cm): The estimated cumulative dose is 710.65 mGycm. FINDINGS: Consulting Actuary topogram: Unremarkable. Proportional ventricular and sulcal prominence, likely age-related parenchymal volume loss. Periventricular and subcortical white matter hypoattenuation, nonspecific but likely indicative of chronic small vessel ischemic change. No mass effect or midline shift. No hemorrhage or acute territorial infarct. No extra-axial fluid collection. Paranasal sinuses and mastoid air cells clear. Calvarium intact. IMPRESSION: 1. No acute intracranial abnormality. (Miguelangel Galvez MD) Diagnostic Interpretation: Radiology results as stated below per my review and radiologist interpretation: (Shahbaz Dozier M.D.) Laboratory Results 11/06/17 15:03 11/06/17 15:03 Test 11/06/17 15:03 11/06/17 15:45 Red Blood Count 3.37 M/uL (4.2-5.4) Mean Corpuscular Volume 92.3 fL (80-100) Mean Corpuscular Hemoglobin 29.1 pg (25-34) Mean Corpuscular Hemoglobin Concent 31.5 g/dl (32-36) RDW Standard Deviation 50.8 fL (36.4-46.3) RDW Coefficient of Variation 14.9 % (11.5-14.5) Mean Platelet Volume 11.1 fL (7.4-10.4) Anion Gap 4.0 mmol/L (3-11) Est Creatinine Clear Calc Drug Dose 23.6 ml/min Estimated GFR () 34.4 Estimated GFR (Non- 29.7 BUN/Creatinine Ratio 13.5 (10-20) Calcium Level 9.7 mg/dl (8.5-10.1) Total Bilirubin 0.3 mg/dl (0.2-1) Aspartate Amino Transf (AST/SGOT) 51 U/L (15-37) Alanine Aminotransferase (ALT/SGPT) 23 U/L (12-78) Alkaline Phosphatase 216 U/L (45-117) Troponin I 0.044 ng/ml (0-0.045) Total Protein 7.1 gm/dl (6.4-8.2) Albumin 3.6 gm/dl (3.4-5.0) Globulin 3.5 gm/dl (2.5-4.0) Albumin/Globulin Ratio 1.0 (0.9-2) Urine Color YELLOW Urine Appearance CLOUDY (CLEAR) Urine pH 7.0 (4.5-7.5) Urine Specific [place] 1.014 (1.000-1.030) Urine Protein 2+ (NEG) Urine Glucose (UA) NEG (NEG) Urine Ketones NEG (NEG) Urine Occult Blood TRACE (NEG) Urine Nitrite NEG (NEG) Urine Bilirubin NEG (NEG) Urine Urobilinogen NEG (NEG) Urine Leukocyte Esterase LARGE (NEG) Urine WBC (Auto) >30 /hpf (0-5) Urine RBC (Auto) 0-4 /hpf (0-4) Urine Hyaline Casts (Auto) 1-5 /lpf (0-5) Urine Epithelial Cells (Auto) 0-5 /lpf (0-5) Urine Bacteria (Auto) 3+ (NEG) Laboratory results reviewed by me (Shahbaz Dozier M.D.) labs were reviewed by me (Miguelangel Galvez MD) Medications Administered Medications (Trade) Dose Ordered Sig/Gin Route Start Time Stop Time Status Last Admin Dose Admin Ceftriaxone Sodium (Rocephin Inj) 1 gm NOW STAT IV 11/06/17 16:35 11/06/17 16:37 DC 11/06/17 17:29 1 GM Carbohydrates (Carbohydrates For Hypoglycemia) 15-30 GRAMS 15 grams if BSG 54-69... UD PRN PO 11/06/17 17:30 12/06/17 17:29 11/07/17 07:54 15 GM (Shahbaz Dozier M.D.) 1 gram of ceftriaxone IV (Miguelangel Galvez MD) ECG Per My Interpretation Change: Regular rate of 60 with regular rhythm Atrial paced rhythm as pacemaker in place No ST changes (Miguelangel Galvez MD) ED Course 1430: I saw and examined the patient 1440: I spoke to Dr. Dozier and ordered lab work and imaging 1630: lab work was reviewed which revealed chronic anemia, and stable CKD, CT of the head and cervical spine were both negative 1645: I spoke to case management in order to get the patient seen for admission 1647: I spoke to Katelynn Spencer of the [facility] physican group and she agreed to evaluate the patient for admission. The patient was in agreement with this plan. (Miguelangel Galvez MD) Medical Decision The differential diagnosis includes UTI, lumbar stenosis, osteoarthritis, electrolyte abnormality, stroke, TIA Patient is a 77 year old female with several known medical problems who presented to [facility] after having a fall at home. She has had 30 falls over the past 6 months. She was seen 1 month ago for bradycardia and had a pacemaker placed. Her vitals were stable while in the ED and she was in no acute distress. A CT scan of her head was unremarkable. A CT scan of her cervical spine showed a chronic superior endplate compression deformity of C7 and T1. The patient was not experiencing any neck pain to palpation on exam. Lab results showed a normal CBC, normal CMP and did show a UTI. She was started on IV Rocephin. Due to the patients recurrent falls and current UTI it was decided to admit the patient for IV antibiotics and with a plan to transfer the patient to rehab tomorrow for physical therapy. The plan was discussed with the patient and she was in agreement with this plan. (Miguelangel Galvez MD) Medication Reconcilliation Current Medication List: was personally reviewed by me (Miguelangel Galvez MD) Blood Pressure Screening Patient's blood pressure: Elevated blood pressure Referred by hospitalist (Shahbaz Dozier M.D.) Impression Primary Impression: Fall Additional Impressions: Contusion of multiple sites UTI (urinary tract infection) Anemia CKD (chronic kidney disease) stage 4, GFR 15-29 ml/min Departure Information Referrals Ej Nicholas D.O. (PCP) Patient Instructions My [facility] Problem Qualifiers Primary Impression: Fall Encounter type: initial encounter Qualified Codes: W19.XXXA - Unspecified fall, initial encounter Additional Impressions: UTI (urinary tract infection) Urinary tract infection type: acute cystitis Hematuria presence: with hematuria Qualified Codes: N30.01 - Acute cystitis with hematuria Anemia Anemia type: unspecified type Qualified Codes: D64.9 - Anemia, unspecified
[2017-11-06] MEDS ORDERED: INSDGIPEN SC (15:03)
[2017-11-06] MEDS ORDERED: GLGKIT INJ (15:03)
[2017-11-06] MEDS ORDERED: MAGN1SOL7 PO (15:03)
[2017-11-06 15:20] LABS: HEMATOCRIT 31.1 % (37-47); HEMOGLOBIN 9.8 g/dL (12.0-16.0); MEAN CELL VOLUME 92.3 fL (80-100); MEAN CORPUSCULAR HEMOGLOBIN 29.1 pg (25-34); MEAN CORPUSCULAR HGB CONC 31.5 g/dl (32-36); MEAN PLATELET VOLUME 11.1 fL (7.4-10.4); PLATELET COUNT 228 K/uL (130-400); RED CELL DISTRIBUTION WIDTH CV 14.9 % (11.5-14.5); RED CELL DISTRIBUTION WIDTH SD 50.8 fL (36.4-46.3); WHITE BLOOD COUNT 6.87 K/uL (4.8-10.8)
[2017-11-06 15:44] LABS: ALBUMIN 3.6 gm/dl (3.4-5.0); CALCIUM 9.7 mg/dl (8.5-10.1); CREATININE 1.63 mg/dl (0.60-1.20); POTASSIUM 4.4 mmol/L (3.5-5.1); TOTAL PROTEIN 7.1 gm/dl (6.4-8.2)
--- NOTE | 2017-11-06 16:19 | DIAGNOSTIC IMAGING REPORT ---
HEAD WITHOUT CONTRAST (CT) CLINICAL HISTORY: 77 years-old Female presenting with Fall with hit of head. TECHNIQUE: Multidetector CT imaging of the head was performed without the use of intravenous contrast. IV contrast: None. A dose lowering technique was used consistent with the principles of ALARA (as low as reasonably achievable). COMPARISON: 03/11/2017. CT DOSE (mGy.cm): The estimated cumulative dose is 710.65 mGycm. FINDINGS: Centerless Grinder Tender topogram: Unremarkable. Proportional ventricular and sulcal prominence, likely age-related parenchymal volume loss. Periventricular and subcortical white matter hypoattenuation, nonspecific but likely indicative of chronic small vessel ischemic change. No mass effect or midline shift. No hemorrhage or acute territorial infarct. No extra-axial fluid collection. Paranasal sinuses and mastoid air cells clear. Calvarium intact. IMPRESSION: 1. No acute intracranial abnormality. Electronically signed by: Ed White M.D. 11/06/2017 4:17 PM Dictated Date/Time: 11/06/2017 4:16 PM
--- NOTE | 2017-11-06 16:23 | EMERGENCY ROOM VISIT NOTE ---
ED Visit Note First contact with patient: 14:03 The patient was seen and examined with Dr. Galvez, resident physician. We discussed the case and treatments ordered, reviewed the results, and determine the disposition. Please refer to the resident's note for additional details. I have been directly involved with the management and disposition as well as independently evaluated the patient as documented in this note. EKG per my interpretation: Indication: chest pain Atrial paced rhythm at a rate of 60. Normal interval. Normal axis. No ST changes or TWI.
--- NOTE | 2017-11-06 16:26 | DIAGNOSTIC IMAGING REPORT ---
CT SCAN OF THE CERVICAL SPINE CLINICAL HISTORY: Fall with head injury. COMPARISON STUDY: No priors. TECHNIQUE: CT scan of the cervical spine is performed from the skull base to the upper thoracic spine. Images are reviewed in the axial, sagittal, and coronal planes. IV contrast was not administered for this examination. A dose lowering technique was utilized adhering to the principles of ALARA. CT DOSE: 452.98 mGycm FINDINGS: Skeletal structures: The skeletal structures are osteopenic. There is no evidence of fracture or subluxation involving the cervical spine. There is a minimal superior endplate compression deformity of C7, as well as a mild to moderate superior endplate compression deformity of T1. These are age indeterminant. Vertebral body height is otherwise maintained. Alignment is preserved. There is straightening of the cervical lordosis with reversal centered at C4. The odontoid process and lateral masses are intact. The atlantoaxial articulation is preserved. The spinous processes appear intact. There is mild multilevel cervical spondylosis. Uncovertebral and facet arthropathy are seen at several levels. Intervertebral discs: The disc spaces are well maintained. Central canal: Grossly patent. Soft tissues: The prevertebral and paraspinous soft tissues are within normal limits. There is atherosclerotic calcification of the carotid bulbs. Pacemaker leads are noted in the right axillary region. Calvarium: The visualized calvarium at the skull base appears intact. Brain parenchyma: Partially visualized brain parenchyma the skull base is within normal limits. Sinuses and mastoids: The visualized paranasal sinuses are clear. The mastoid air cells are well pneumatized. Lung apices: Clear as visualized. IMPRESSION: 1. There is no evidence of fracture or subluxation involving the cervical spine. 2. A minimal superior endplate compression deformity of C7 and a mild to moderate superior endplate compression deformity of T1 are age indeterminant but likely chronic. Correlate for point tenderness at these levels. 3. Osteopenia and spondylotic change as above. Electronically signed by: Josesito Schmitt M.D. 11/06/2017 4:25 PM Dictated Date/Time: 11/06/2017 4:15 PM
[2017-11-06] MEDS ORDERED: CEFTRIAXONE SOD INJ 1 GM ADDVIAL IV STA (16:35)
[2017-11-06] MEDS ORDERED: ONDANSETRON INJ 2 MG/ML 2 ML VIAL IV PRN (17:30)
[2017-11-06] MEDS ORDERED: GLUCOSE 40% GEL 15 GM TUBE PO PRN (17:30)
[2017-11-06] MEDS ORDERED: ACETAMINOPHEN 325 MG TAB PO PRN (17:30)
[2017-11-06] MEDS ORDERED: GLUCAGON FOR INJ 1 MG VIAL SQ PRN (17:30)
[2017-11-06] MEDS ORDERED: GLUCOSE 10 TABS/TUBE PO PRN (17:30)
[2017-11-06] MEDS ORDERED: DEXTROSE 50% 50 ML SYR IV PRN (17:30)
[2017-11-06] MEDS ORDERED: MAGNESIUM HYDROXIDE SUSP 30 ML UDC PO PRN (17:30)
[2017-11-06] MEDS ORDERED: CARBOHYDRATES FOR HYPOGLYCEMIA PO PRN (17:30)
[2017-11-06] MEDS ORDERED: NON-FORMULARY MEDICATION (Glucagon (Glucagon Emergency Kit) 1 DOSE) INJ SCH (17:45)
--- NOTE | 2017-11-06 17:50 | History and Physical ---
History & Physical Date & Time of Service: November 06, 2017 at 17:37 Chief Complaint: FALL Primary Care Physician: Ej Nicholas D.O. History of Present Illness Source: patient 77 y/o F c/o falls. Pt states that this has been happening for quite some time , although she cannot quantify the length. When I ask "years", she states yes but cannot elaborate an exact time frame. She does feel that the falls are more frequent since June, with about 30 falls since then. She is not tripping or passing out, but feels that her LE just cannot hold her up any longer and falls. Sometimes she is able to lower herself to her buttocks, but other times she falls face forward. She did this recently and has bruising and swelling to her upper lip. She states it is not painful "just ugly so I don't look at it". She states she has lost about 20 pounds due to decreased PO intake. She is not purposely doing this, but states that as she has gotten older, she cannot eat as much and if she tries to eat more, she gets n/v/abd pain. She states the same thing happened to her grandmother and she thinks this is just due to aging. She has ongoing constipation issues and mag citrate helps with this. She had a pacer put in about 20 days ago for HR in the 30s, but feels her falls have not improved since that time. Pt is very concerned about being away from home for a long period of time due to a with Alzheimers that is worsening. 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 Pt denies fever, SOB, chest pain, abd pain, n/v/c/d, LE pain or swelling. Denies burning or numbness to LE. Past Medical/Surgical History Medical Problems: (1) Abdominal pain (2) Acute kidney failure (3) Anemia (4) BIPOL I, MOST RECENT EPISODE (OR CURRENT) UNSPECIFIED (5) Bipolar 1 disorder (6) Bradycardia (7) Chronic idiopathic anal pain (8) Constipation (9) Constipation (10) Constipation (11) Constipation (12) Constipation (13) Constipation (14) Constipation (15) Dehydration (16) Diabetes (17) Elevated troponin (18) Elevated troponin (19) Epigastric pain (20) Facial contusion (21) Heart disease (22) Hyperlipidemia, Unspecified (23) Hypertension (24) Hyponatremia (25) Hypothyroidism (26) Intractable nausea and vomiting (27) Junctional rhythm (28) Left rib fracture (29) Malignant neoplasm of breast (30) Mass of anus (31) Rectal pain, chronic (32) Rectal prolapse (33) Right rib fracture (34) Sacral back pain (35) Stage 3 chronic kidney disease (36) Symptomatic bradycardia (37) Urinary tract infection Surgical Problems: (1) Hx of cholecystectomy (2) Hysterectomy Family History Cancer Diabetes mellitus Hypertension Social History Smoking Status: Never Smoker Alcohol Use: none Drug Use: none Marital Status: Housing status: lives with family Occupational Status: employed Immunizations History of Influenza Vaccine: No Influenza Vaccine Date: Sep 21, 2005 History of Tetanus Vaccine?: UTD History of Pneumococcal: No History of Hepatitis B Vaccine: No Allergies Coded Allergies: Iodinated Diagnostic Agents (Verified Allergy, Severe, Anaphylaxis, ) Dust (Verified Allergy, Unknown, UNKNOWN, 11/06/17) Fungi (Verified Allergy, Unknown, UNKNOWN, 11/06/17) Molds and Smuts (Verified Allergy, Unknown, UNKNOWN, 11/06/17) POLLEN (Verified Allergy, Unknown, UNKNOWN, 11/06/17) Home Medications Scheduled Amlodipine Besylate (Norvasc), 1 TAB PO HS Bisacodyl (Dulcolax), 2 TAB PO Q2D Fenofibrate (Tricor), 145 MG PO DAILY Fish Oil ([place]-3), 2 CAP PO DAILY Glucagon (Glucagon Emergency Kit), 1 DOSE INJ UD Insulin Aspart (Novolog Flexpen), 5 UNITS SQ with am & pm meal Insulin Glargine (Lantus Solostar), 8 UNITS SC QPM Lactulose (Chronulac), 30 ML PO BID Lamotrigine (Lamictal), 100 MG PO DAILY Levothyroxine Sodium (Synthroid), 112 MCG PO DAILY Losartan Potassium (Cozaar), 50 MG PO DAILY Magnesium Citrate (Magnesium Citrate), 8-10 OZ PO BID Multivitamins/Minerals (Mvi With Minerals), 1 TAB PO DAILY Pantoprazole (Protonix), 40 MG PO DAILY Quetiapine Fumarate Xr (Seroquel Xr Tab), 400 MG PO HS Review of Systems Pertinent positives and negatives reviewed in HPI--all others negative Physical Exam Vital Signs Date Time Temp Pulse Resp B/P (MAP) Pulse Ox O2 Delivery O2 Flow Rate FiO2 11/06/17 15:54 60 18 179/69 97 Room Air 11/06/17 14:12 60 11/06/17 13:56 37.0 60 24 153/60 92 Room Air 11/06/17 13:56 37.0 60 24 153/60 92 Room Air General Appearance: WD/WN, no apparent distress Head: normocephalic, + pertinent finding (upper lip with swelling and bruising noted) Eyes: normal inspection, sclerae normal Respiratory/Chest: normal breath sounds, no respiratory distress Cardiovascular: regular rate, rhythm, no edema Abdomen/GI: non tender, soft Extremities/Musculoskelatal: no calf tenderness, no pedal edema Neurologic/Psych: alert, normal mood/affect, oriented x 3 Skin: normal color, warm/dry Diagnostics Laboratory Results Results Past 24 Hours Test 11/06/17 15:03 11/06/17 15:45 Range/Units White Blood Count 6.87 4.8-10.8 K/uL Red Blood Count 3.37 4.2-5.4 M/uL Hemoglobin 9.8 12.0-16.0 g/dL Hematocrit 31.1 37-47 % Mean Corpuscular Volume 92.3 80-100 fL Mean Corpuscular Hemoglobin 29.1 25-34 pg Mean Corpuscular Hemoglobin Concent 31.5 32-36 g/dl RDW Standard Deviation 50.8 36.4-46.3 fL RDW Coefficient of Variation 14.9 11.5-14.5 % Platelet Count 228 130-400 K/uL Mean Platelet Volume 11.1 7.4-10.4 fL Sodium Level 142 136-145 mmol/L Potassium Level 4.4 3.5-5.1 mmol/L Chloride Level 110 98-107 mmol/L Carbon Dioxide Level 28 21-32 mmol/L Anion Gap 4.0 3-11 mmol/L Blood Urea Nitrogen 22 7-18 mg/dl Creatinine 1.63 0.60-1.20 mg/dl Est Creatinine Clear Calc Drug Dose 23.6 ml/min Estimated GFR () 34.4 Estimated GFR (Non- 29.7 BUN/Creatinine Ratio 13.5 10-20 Random Glucose 189 70-99 mg/dl Calcium Level 9.7 8.5-10.1 mg/dl Total Bilirubin 0.3 0.2-1 mg/dl Aspartate Amino Transf (AST/SGOT) 51 15-37 U/L Alanine Aminotransferase (ALT/SGPT) 23 12-78 U/L Alkaline Phosphatase 216 45-117 U/L Troponin I 0.044 0-0.045 ng/ml Total Protein 7.1 6.4-8.2 gm/dl Albumin 3.6 3.4-5.0 gm/dl Globulin 3.5 2.5-4.0 gm/dl Albumin/Globulin Ratio 1.0 0.9-2 Urine Color YELLOW Urine Appearance CLOUDY CLEAR Urine pH 7.0 4.5-7.5 Urine Specific [place] 1.014 1.000-1.030 Urine Protein 2+ NEG Urine Glucose (UA) NEG NEG Urine Ketones NEG NEG Urine Occult Blood TRACE NEG Urine Nitrite NEG NEG Urine Bilirubin NEG NEG Urine Urobilinogen NEG NEG Urine Leukocyte Esterase LARGE NEG Urine WBC (Auto) >30 0-5 /hpf Urine RBC (Auto) 0-4 0-4 /hpf Urine Hyaline Casts (Auto) 1-5 0-5 /lpf Urine Epithelial Cells (Auto) 0-5 0-5 /lpf Urine Bacteria (Auto) 3+ NEG Microbiology Results 11/06/17 Urine Culture, Received Pending Diagnostic Radiology CT head neg for acute CT c-spine with possible compression fx at C7, T1 Impression Assessment and Plan 77 y/o F who was admitted for observation for increasing frequency of falls\\ Increasing frequency of falls: CT head neg for acute C spine with possible compression fx Recent lyme neg 10/09/17 MCV is high normal with anemia noted, B12/folate pending TSH pending UA with possible UTI-+ leuk est, neg nitrites--cx pending--seems less likely this is the cause of months/years of falls Pacer placed within the last month and no improvement of falls PT/OT pending CM for possible rehab/placement needs Abn UA: as above Started on rocephin in the ED, will continue CKD III: baseline cr is 1.5-1.8, 1.6 on admission Monitor DM: states lantus 8 units HS and humalin 2 units HS Denies use of aspart A1c 6.5 on 10/11/17, will not recheck Bipolar: continue home meds HTN: continue home meds Hyperlipidemia: continue home meds Other: Full code DM AHA diet SCDs for DVT proph Resuscitation Status VTE Prophylaxis Will order VTE Prophylaxis: Yes
[2017-11-06 18:07] VITALS: O2SAT 97
[2017-11-06 18:45] VITALS: BP 193/73; PULSE 61; TEMP 36.7; O2SAT 99
[2017-11-06 19:11] VITALS: BMI 20.2
[2017-11-06] MEDS ORDERED: MAGNESIUM CITRATE 296 ML/BTL PO SCH (20:00)
[2017-11-06] MEDS ORDERED: IV FLUIDS COMPLETED PRN (20:15)
[2017-11-06] MEDS ORDERED: QUETIAPINE FUMARATE 200 MG TABCR PO SCH (21:00)
[2017-11-06] MEDS ORDERED: INSULIN GLARGINE SOLOSTAR 100 UNITS/ML 3 ML PEN SC SCH (21:00)
[2017-11-06] MEDS ORDERED: AMLODIPINE BESYLATE 5 MG TAB PO SCH (21:00)
[2017-11-06] MEDS ORDERED: INSULIN HUMAN NPH SC SCH (21:00)
[2017-11-06] MEDS: MAGNESIUM CITRATE 296 ML/BTL PO SCH (21:19)
[2017-11-06] MEDS: LACTULOSE SYRUP 20 GM/30 ML UDC PO SCH (21:19)
[2017-11-06] MEDS: INSULIN ASPART 100 UNITS/ML 3 ML PEN SC SCH (21:34)
[2017-11-06 23:19] VITALS: BP 184/83; PULSE 65; TEMP 36.7; O2SAT 98
[2017-11-07] MEDS ORDERED: TRAMADOL HCL 50 MG TAB PO PRN (05:30)
[2017-11-07] MEDS ORDERED: LEVOTHYROXINE 112 MCG TAB PO SCH (06:30)
[2017-11-07] MEDS: INSULIN ASPART 100 UNITS/ML 3 ML PEN SC SCH ×2 (06:30→12:34)
[2017-11-07 07:38] VITALS: BP 135/72; PULSE 68; TEMP 36.7; O2SAT 98
[2017-11-07] MEDS ORDERED: CEROVITE ADV FORMULA TAB PO SCH (08:00)
[2017-11-07] MEDS ORDERED: FENOFIBRATE 145 MG TAB PO SCH (08:00)
[2017-11-07] MEDS ORDERED: PANTOprazole SOD 40 MG TAB PO SCH (08:00)
[2017-11-07] MEDS ORDERED: OMEGA-3 (PURIFIED FISH OIL) 1 GM CAP PO SCH (08:00)
[2017-11-07] MEDS ORDERED: LOSARTAN POTASSIUM 50 MG TAB PO SCH (08:00)
[2017-11-07] MEDS: LACTULOSE SYRUP 20 GM/30 ML UDC PO SCH (08:08)
[2017-11-07] MEDS: MAGNESIUM CITRATE 296 ML/BTL PO SCH (08:08)
[2017-11-07] MEDS ORDERED: BISACODYL 5 MG TABEC PO SCH (09:00)
--- NOTE | 2017-11-07 13:47 | Hospitalist Progress Note ---
Hospitalist Progress Note Date of Service November 07, 2017. Subjective Pt evaluation today including: conversation w/ patient, physical exam, chart review, lab review, review of inpatient medication list Ms. Lanier reports that she is fine except for the weakness in her legs. She says she will go to rehab for one week but does not want to have longer term placement. She says she and her are working on hiring a home nurse. ROS Constitutional: no chills, aches, sweats or fever Respiratory: no sob,cough, sputum, or wheezing Cardiac: no chest pain, palpitations, edema, orthopnea or lightheadedness GI: no abdominal pain, nausea, vomiting, diarrhea or constipation : no dysuria or hesitancy Extremities: see HPI Skin: no rash All other systems reviewed and negative Medications Medications Administered Medications (Trade) Dose Ordered Sig/Gin Route Start Time Stop Time Status Last Admin Dose Admin Ceftriaxone Sodium (Rocephin Inj) 1 gm NOW STAT IV 11/06/17 16:35 11/06/17 16:37 DC 11/06/17 17:29 1 GM Insulin Aspart (novoLOG ASPART) SLIDING SCALE If C... ACHS SC 11/06/17 21:00 12/06/17 20:59 11/07/17 12:34 4 UNITS Carbohydrates (Carbohydrates For Hypoglycemia) 15-30 GRAMS 15 grams if BSG 54-69... UD PRN PO 11/06/17 17:30 12/06/17 17:29 11/07/17 07:54 15 GM Amlodipine Besylate (Norvasc Tab) 5 mg HS PO 11/06/17 21:00 12/06/17 20:59 11/06/17 21:20 5 MG Bisacodyl (Dulcolax Tab) 10 mg Q2D@0900 PO 11/07/17 09:00 12/07/17 08:59 11/07/17 08:09 10 MG Fenofibrate (Tricor Tab) 145 mg DAILY PO 11/07/17 08:00 12/07/17 08:59 11/07/17 08:08 145 MG Fish Oil ([place]-3 (Purified Fish Oil) Cap) 1 gm DAILY PO 11/07/17 08:00 12/07/17 08:59 11/07/17 08:08 1 GM Insulin Glargine (Lantus Solostar Pen) 8 units QPM SC 11/06/17 21:00 12/06/17 20:59 11/06/17 21:35 8 UNITS Lactulose (Chronulac Syrup) 20 gm BID PO 11/06/17 20:00 12/06/17 20:59 11/07/17 08:08 20 GM Lamotrigine (Lamictal Tab) 100 mg DAILY PO 11/07/17 08:00 12/07/17 08:59 11/07/17 08:07 100 MG Levothyroxine Sodium (Synthroid Tab) 112 mcg DAILYBB PO 11/07/17 06:30 12/07/17 06:59 11/07/17 06:02 112 MCG Losartan Potassium (coZAAR TAB) 50 mg DAILY PO 11/07/17 08:00 12/07/17 08:59 11/07/17 08:08 50 MG Multivitamins/ Minerals (Multivitamin W/ Minerals Tab) 1 tab DAILY PO 11/07/17 08:00 12/07/17 08:59 11/07/17 08:08 1 TAB Pantoprazole Sodium (Protonix Tab) 40 mg DAILY PO 11/07/17 08:00 12/07/17 08:59 11/07/17 08:08 40 MG Quetiapine Fumarate (seroQUEL XR TAB) 400 mg HS PO 11/06/17 21:00 12/06/17 20:59 11/06/17 21:19 400 MG Magnesium Citrate (Citrate Of Magnesia Soln) 148 ml BID PO 11/06/17 20:00 11/07/17 12:52 DC 11/07/17 08:08 148 ML Objective Vital Signs Date Time Temp Pulse Resp B/P (MAP) Pulse Ox O2 Delivery O2 Flow Rate FiO2 11/07/17 08:00 Room Air 11/07/17 07:38 36.7 68 16 135/72 (93) 98 Room Air 11/07/17 04:00 Room Air 11/07/17 00:00 Room Air 11/06/17 23:19 36.7 65 16 184/83 (116) 98 Room Air 11/06/17 19:11 Room Air 11/06/17 18:45 36.7 61 20 193/73 (113) 99 Room Air 11/06/17 18:07 60 18 183/87 97 11/06/17 18:00 60 18 183/87 97 Room Air 11/06/17 15:54 60 18 179/69 97 Room Air 11/06/17 14:12 60 11/06/17 13:56 37.0 60 24 153/60 92 Room Air 11/06/17 13:56 37.0 60 24 153/60 92 Room Air Physical Exam Notes: General: no distress Eyes: normal inspection, PERLL Respiratory: chest non tender, clear to auscultation, normal breath sounds, no respiratory distress, no accessory muscle use Cardiac: regular rate and rhythm, no rub or gallop, no murmur, no edema, no jvd GI/: active bowel sounds, no abd pain or tenderness, soft, mild distention Extremities: normal range of motion, normal strength, non tender Neuro/Psych: alert and oriented x 3, normal mood and affect Skin: edematous, ecchymotic upper lip Laboratory Results Last 24 Hours Test 11/06/17 15:03 11/06/17 15:45 11/06/17 17:52 11/06/17 18:42 White Blood Count 6.87 K/uL Red Blood Count 3.37 M/uL Hemoglobin 9.8 g/dL Hematocrit 31.1 % Mean Corpuscular Volume 92.3 fL Mean Corpuscular Hemoglobin 29.1 pg Mean Corpuscular Hemoglobin Concent 31.5 g/dl RDW Standard Deviation 50.8 fL RDW Coefficient of Variation 14.9 % Platelet Count 228 K/uL Mean Platelet Volume 11.1 fL Sodium Level 142 mmol/L Potassium Level 4.4 mmol/L Chloride Level 110 mmol/L Carbon Dioxide Level 28 mmol/L Anion Gap 4.0 mmol/L Blood Urea Nitrogen 22 mg/dl Creatinine 1.63 mg/dl Est Creatinine Clear Calc Drug Dose 23.6 ml/min Estimated GFR () 34.4 Estimated GFR (Non- 29.7 BUN/Creatinine Ratio 13.5 Random Glucose 189 mg/dl Calcium Level 9.7 mg/dl Total Bilirubin 0.3 mg/dl Aspartate Amino Transf (AST/SGOT) 51 U/L Alanine Aminotransferase (ALT/SGPT) 23 U/L Alkaline Phosphatase 216 U/L Troponin I 0.044 ng/ml Total Protein 7.1 gm/dl Albumin 3.6 gm/dl Globulin 3.5 gm/dl Albumin/Globulin Ratio 1.0 Urine Color YELLOW Urine Appearance CLOUDY Urine pH 7.0 Urine Specific [place] 1.014 Urine Protein 2+ Urine Glucose (UA) NEG Urine Ketones NEG Urine Occult Blood TRACE Urine Nitrite NEG Urine Bilirubin NEG Urine Urobilinogen NEG Urine Leukocyte Esterase LARGE Urine WBC (Auto) >30 /hpf Urine RBC (Auto) 0-4 /hpf Urine Hyaline Casts (Auto) 1-5 /lpf Urine Epithelial Cells (Auto) 0-5 /lpf Urine Bacteria (Auto) 3+ Vitamin B12 Level 746 pg/mL Folate > 24.00 ng/mL Thyroid Stimulating Hormone (TSH) 0.382 uIu/ml Bedside Glucose 140 mg/dl Test 11/06/17 21:25 11/07/17 07:52 11/07/17 08:16 11/07/17 11:44 Bedside Glucose 173 mg/dl 60 mg/dl 89 mg/dl 177 mg/dl Assessment and Plan 77 y/o F who was admitted for observation for increasing frequency of falls\ Increasing frequency of falls: CT head neg for acute C spine with possible compression fx Recent lyme neg 10/09/17 MCV is high normal with anemia noted, B12/folate wnl TSH wnl - much improved over previous admission UA with possible UTI-+ leuk est, neg nitrites - patient self caths Pacer placed within the last month and no improvement of falls PT/OT pending CM for possible rehab/placement needs E. coli UTI continue Rocephin, awaiting sensitivities CKD III: baseline cr is 1.5-1.8, 1.6 on admission repeat prp pending DM: ss, bsgs ac & hs bsg 60 this am - will reduce home lantus from 8 units to 6 A1c 6.5 on 10/11/17, will not recheck Bipolar: continue home meds HTN: continue home meds Hyperlipidemia: continue home meds Other: Full code DM AHA diet SCDs for DVT proph Dispo: referral for HS following PT/OT evals
[2017-11-07 14:22] VITALS: BMI 20.2
[2017-11-07 14:32] VITALS: Ht 162.6 cm; Wt 53.5 kg
[2017-11-07 15:15] LABS: CALCIUM 9.1 mg/dl (8.5-10.1); CREATININE 1.58 mg/dl (0.60-1.20); POTASSIUM 4.7 mmol/L (3.5-5.1)
[2017-11-07 15:26] VITALS: BP 149/75; PULSE 66; TEMP 37; O2SAT 99
[2017-11-07 16:02] VITALS: BP 149/75; PULSE 66; TEMP 37; O2SAT 99
[2017-11-07] MEDS ORDERED: CEFU1TAB36 PO (16:02)
--- NOTE | 2017-11-07 16:03 | Discharge Instructions ---
Discharge Instructions Date of Service November 07, 2017. Admission Reason for Admission: FALL Discharge Discharge Diagnosis / Problem: Fall, UTI Discharge Goals Goal(s): Improve disease control Activity Recommendations Activity Limitations: resume your previous activity Exercise/Sports Limitations: gradually increase as tolerated . Instructions / Follow-Up Instructions / Follow-Up Home health and the office of aging will contact you tomorrow morning. Please follow up with your primary care provider within about a week. Please complete your antibiotic regimen Current Hospital Diet Patient's current hospital diet: Diabetes Type 2 Diet, AHA Diet (Heart Healthy) Discharge Diet Recommended Diet: AHA Diet (Heart Healthy), Diabetes Type 2 Diet Pending Studies Studies pending at discharge: no Laboratory Results Hemoglobin A1c Test 10/11/17 08:14 Range/Units Estimated Average Glucose 140 mg/dl Hemoglobin A1c 6.5 H 4.5-5.6 % Lipid Panel Test 10/12/17 05:58 Range/Units Triglycerides Level 198 H 0-150 mg/dl Cholesterol Level 162 0-200 mg/dl HDL Cholesterol 53 mg/dl Cholesterol/HDL Ratio 3.1 LDL Cholesterol, Calculated 69 mg/dl Medical Emergencies . Who to Call and When: Medical Emergencies: If at any time you feel your situation is an emergency, please call 911 immediately. . Non-Emergent Contact Non-Emergency issues call your: Primary Care Provider Call Non-Emergent contact if: you have a fever, you have any medication questions . . "Provider Documentation" section prepared by Tabatha Mcclendon. .
[2017-11-07] MEDS ORDERED: INSDGIPEN SC (16:11)
--- NOTE | 2017-11-07 16:14 | Discharge Summary ---
Discharge Summary Date of Service November 07, 2017. Discharge Summary Admission Date: November 06, 2017 at 17:32 Discharge Date: November 07, 2017 Discharge Disposition: Home with services Principal Diagnosis: Fall, UTI Problems/Secondary Diagnoses: (1) Anemia Status: Chronic (2) BIPOL I, MOST RECENT EPISODE (OR CURRENT) UNSPECIFIED Status: Chronic (3) Chronic idiopathic anal pain Status: Chronic (4) Constipation Status: Chronic (5) Diabetes Status: Chronic (6) Heart disease Status: Chronic (7) Hyperlipidemia, Unspecified Status: Chronic (8) Hypertension Status: Chronic (9) Hypothyroidism Status: Chronic (10) Stage 3 chronic kidney disease Status: Chronic Immunizations: Have You Had Influenza Vaccine: No Influenza Vaccine Date: Sep 21, 2005 History of Tetanus Vaccine?: UTD History of Pneumococcal: No History of Hepatitis B Vaccine: No Medication Reconciliation New Medications: Cefuroxime Axetil (Cefuroxime Axetil) 500 Mg Tab 1 TAB PO DAILY for 6 Days, #6 TAB Insulin Glargine (Lantus Solostar) 100 Unit/Ml Inj 6 UNITS SC QPM for 30 Days, #1 PEN Continued Medications: Amlodipine Besylate (Norvasc) 5 Mg Tab 1 TAB PO HS for 90 Days, #90 TAB 5 Refills Bisacodyl (Dulcolax) 5 Mg Tab 2 TAB PO Q2D for Constipation for 30 Days, #30 TAB Fenofibrate (Tricor) 145 Mg Tab 145 MG PO DAILY Fish Oil ([place]-3) 1 Ea Cap 2 CAP PO DAILY, CAP Glucagon (Glucagon Emergency Kit) 1 Mg Kit 1 DOSE INJ UD Insulin Aspart (Novolog Flexpen) 100 Units/Ml Inj 5 UNITS SQ with am & pm meal Lactulose (Chronulac) 10 Gm/15 Ml Syrp 30 ML PO BID Lamotrigine (Lamictal) 100 Mg Tab 100 MG PO DAILY, TAB Levothyroxine Sodium (Synthroid) 112 Mcg Tab 112 MCG PO DAILY, TAB Losartan Potassium (Cozaar) 50 Mg Tab 50 MG PO DAILY, TAB Magnesium Citrate (Magnesium Citrate) 1.745 Gm/30 Ml [place] 8-10 OZ PO BID Multivitamins/Minerals (Mvi With Minerals) Tab 1 TAB PO DAILY, 0 Refills Pantoprazole (Protonix) 40 Mg Tab 40 MG PO DAILY Quetiapine Fumarate Xr (Seroquel Xr Tab) 400 Mg Tabcr 400 MG PO HS, TAB Discontinued Medications: Insulin Glargine (Lantus Solostar) 100 Unit/Ml Inj 8 UNITS SC QPM, PEN Discharge Exam ROS Constitutional: no chills, aches, sweats or fever Respiratory: no sob,cough, sputum, or wheezing Cardiac: no chest pain, palpitations, edema, orthopnea or lightheadedness GI: no abdominal pain, nausea, vomiting, diarrhea or constipation : no dysuria or hesitancy Extremities: no joint pain or weakness Skin: no rash All other systems reviewed and negative General: no distress Eyes: normal inspection, PERLL Respiratory: chest non tender, clear to auscultation, normal breath sounds, no respiratory distress, no accessory muscle use Cardiac: regular rate and rhythm, no rub or gallop, no murmur, no edema, no jvd GI/: active bowel sounds, no abd pain or tenderness, soft, non distended Extremities: normal range of motion, normal strength, non tender Neuro/Psych: alert and oriented x 3, normal mood and affect Skin: normal color, dry, ecchymosis, edema upper lip Hospital Course 77 y/o F who was admitted for observation for increasing frequency of falls Increasing frequency of falls: CT head neg for acute C spine with possible compression fx Recent lyme neg 10/09/17 MCV is high normal with anemia noted, B12/folate wnl TSH wnl - much improved over previous admission UA with possible UTI-+ leuk est, neg nitrites - patient self caths - nursing to give teaching on proper cath technique before patient goes home Pacer placed within the last month and no improvement of falls PT/OT - patient not safe for home - Dr. Elmore and myself discussed at length with patient that we did not feel she was safe to go home and was at risk for further falls. She stated that she understood however she could not live with herself if something happened to her who has dementia and that she was going home. We also counseled her on the need for the two of them to find a better living situation such as placement. Office of Aging is following however their case investigator was not available this afternoon. We also expressed that patient should not have her drive to get her if she feels his dementia is bad enough that he cannot be left at home. She verbalized understanding and said she would get a taxi. She is alert and oriented and able to make her own decisions and expressed that she understood that we did not think discharge was a good idea at this point. E. coli UTI will follow sensitivities - discharge with cefuroxime renal dosing 500 mg daily x 6 days CKD III: baseline cr is 1.5-1.8, 1.6 on admission 1.5 today DM: ss, bsgs ac & hs home insulin regimen for discharge except change lantus to 6 units nightly instead of 8 for low bsg this morning A1c 6.5 on 10/11/17, will not recheck Bipolar: continue home meds HTN: continue home meds Hyperlipidemia: continue home meds Other: Full code DM AHA diet SCDs for DVT proph Supervising Note Dr. Elmore I performed a history and physical examination on the patient. I reviewed above note and agree with it. I discussed plan with APC and patient. During my face to face encounter with the patient, I answered all of the patient's questions. Counselled patient to go to rehab. But patient refused. Patient understood the risks and was able to state them to me. Patient will have office of aging and will have home health see her tomorrow. Total Time Spent: Greater than 30 minutes This includes examination of the patient, discharge planning, medication reconciliation, and communication with other providers. Discharge Instructions Please refer to the electronic Patient Visit Report (Discharge Instructions) for additional information.
[2017-11-07] MEDS ORDERED: CEFTRIAXONE SOD INJ 1 GM in DEXTROSE 5% ADD-VANTAGE 50ML 50 ML IV SCH (18:00)
[2017-11-07] MEDS ORDERED: MAGNESIUM CITRATE 296 ML/BTL PO SCH (20:00)
[2017-11-07] MEDS ORDERED: INSULIN GLARGINE SOLOSTAR 100 UNITS/ML 3 ML PEN SC SCH (21:00)
== END 2017-11-07 16:46 | disposition home health service (06) ==
LOC: EDBD 13:56 → C.EDB 13:57 → C.MS4W 17:32 → ENRESERV 17:51
PROVIDERS: ADMIT Family Medicine; ATTEND Family Medicine
DX: N39.0 Urinary tract infection, site not specified (principal); Z91.81 History of falling; E11.22 Type 2 diabetes mellitus with diabetic chronic kidney disease; E78.5 Hyperlipidemia, unspecified; I12.9 Hypertensive chronic kidney disease with stage 1 through stage 4 chronic kidney disease, or unspecified chronic kidney disease; E03.9 Hypothyroidism, unspecified; N18.9 Chronic kidney disease, unspecified; Z79.4 Long term (current) use of insulin; Z79.899 Other long term (current) drug therapy

== ENCOUNTER → 2018-01-03 | Outpatient (CLI) | payer BC ==
[~2018-01-03] MED LIST changes: -AMLO5TAB2 PO; -BISA-16 PO; -DICY10CA55 PO; +GLGKIT INJ; +LACT10SO53 PO; -LCTS240 PO; -LOSA50TA6 PO; +MAGN1SOL7 PO; +MGCUDL400 PO; +NRV5 PO; +NUTR-7 PO; +SENN-61 PO; +SUCR1TAB PO
== END ==
LOC: C.LABUPNIT 15:22
PROVIDERS: ATTEND Nurse Practitioner Family
DX: Z87.440 Personal history of urinary (tract) infections (principal)

== ENCOUNTER → 2018-01-07 | Outpatient (CLI) | payer BC ==
[2018-01-07 09:54] LABS: BLOOD UREA NITROGEN 44 mg/dl (7-18); CALCIUM 9.2 mg/dl (8.5-10.1); CARBON DIOXIDE 23 mmol/L (21-32); CREATININE 1.63 mg/dl (0.60-1.20); GLUCOSE 99 mg/dl (70-99); SODIUM 141 mmol/L (136-145)
== END ==
LOC: C.LABUPNIT 09:10
PROVIDERS: ATTEND Nurse Practitioner Family
DX: N18.9 Chronic kidney disease, unspecified (principal); D63.1 Anemia in chronic kidney disease

== ENCOUNTER → 2018-01-21 | Outpatient (CLI) | payer BC | END | disposition home or self-care (01) | LOC: C.LABUPNIT 16:47 | PROVIDERS: ATTEND Nurse Practitioner Family | DX: N39.0 Urinary tract infection, site not specified (principal) ==

== ENCOUNTER → 2018-02-03 | Outpatient (CLI) | payer BC ==
[2018-02-03 17:20] LABS: ALBUMIN 3.5 gm/dl (3.4-5.0); ALKALINE PHOSPHATASE 106 U/L (45-117); ALT/SGPT 24 U/L (12-78); AST/SGOT 49 U/L (15-37); BLOOD UREA NITROGEN 34 mg/dl (7-18); CARBON DIOXIDE 23 mmol/L (21-32); CHOLESTEROL 184 mg/dl (0-200); GLUCOSE 61 mg/dl (70-99); LDL CHOLESTEROL CALCULATED 80 mg/dl; POTASSIUM 4.9 mmol/L (3.5-5.1); SODIUM 142 mmol/L (136-145); TOTAL PROTEIN 6.4 gm/dl (6.4-8.2)
[2018-02-04 06:22] LABS: HEMOGLOBIN A1C 6.9 % (4.5-5.6)
== END | disposition home or self-care (01) ==
LOC: C.LAB1850 15:20
PROVIDERS: ATTEND Neuromusculoskeletal Medicine & OMM
DX: I12.9 Hypertensive chronic kidney disease with stage 1 through stage 4 chronic kidney disease, or unspecified chronic kidney disease (principal); E11.22 Type 2 diabetes mellitus with diabetic chronic kidney disease; N18.3 Chronic kidney disease, stage 3 (moderate); E11.649 Type 2 diabetes mellitus with hypoglycemia without coma; Z79.4 Long term (current) use of insulin; R80.9 Proteinuria, unspecified; E55.9 Vitamin D deficiency, unspecified; E87.1 Hypo-osmolality and hyponatremia; E03.9 Hypothyroidism, unspecified; E78.5 Hyperlipidemia, unspecified

== ENCOUNTER → 2018-02-10 | Outpatient (CLI) | payer BC ==
[2018-02-10 17:06] LABS: ALBUMIN 3.3 gm/dl (3.4-5.0); BLOOD UREA NITROGEN 31 mg/dl (7-18); CARBON DIOXIDE 21 mmol/L (21-32); CREATININE 1.59 mg/dl (0.60-1.20); GLUCOSE 197 mg/dl (70-99); PHOSPHORUS 3.8 mg/dl (2.5-4.9); POTASSIUM 4.4 mmol/L (3.5-5.1); SODIUM 140 mmol/L (136-145)
== END | disposition home or self-care (01) ==
LOC: C.LAB1850 15:49
PROVIDERS: ATTEND Neuromusculoskeletal Medicine & OMM
DX: N18.3 Chronic kidney disease, stage 3 (moderate) (principal)

== ENCOUNTER 2019-06-08 19:00 | Inpatient (IN) ==
[2019-06-08] MEDS ORDERED: ONDANSETRON INJ 2 MG/ML 2 ML VIAL IV STA (19:18)
[2019-06-08] MEDS ORDERED: fentaNYL citrate 100 MCG/2 ML VIAL IV STA (19:18)
[2019-06-08] MEDS ORDERED: SODIUM CHLORIDE 0.9% 1000ML 1,000 ML IV SCH (19:30)
[2019-06-08] MEDS ORDERED: SODIUM CHLORIDE 0.9% 500 ML IV SCH (19:30)
[2019-06-08 20:09] LABS: Basophils # (auto) 0.01 K/uL (0-0.2); Basophils % (auto) 0.1 %; Hematocrit (blood only) 33.6 % (37-47); Hemoglobin 11.8 g/dL (12.0-16.0); Immature Granulocytes # (auto) 0.02 K/uL (0.00-0.02); Immature Granulocytes % (auto) 0.2 %; Lymphocytes # (auto) 1.08 K/uL (1.2-3.4); Lymphocytes % (auto) 10.9 %; Mean Corpuscular Hemoglobin 30.1 pg (25-34); Mean Corpuscular Hgb Conc 35.1 g/dL (32-36); Mean Corpuscular Volume 85.7 fL (80-100); Mean Platelet Volume 11.7 fL (7.4-10.4); Monocytes # (auto) 0.59 K/uL (0.11-0.59); Neutrophils % (auto) 82.8 %; Platelet Count 393 K/uL (130-400); RDW Coefficient of Variation 13.4 % (11.5-14.5); RDW Standard Deviation 41.8 fL (36.4-46.3); Red Blood Count 3.92 M/uL (4.2-5.4)
--- NOTE | 2019-06-08 20:16 | XRay Report ---
XR chest 1V portable CLINICAL HISTORY: weakness COMPARISON STUDY: 05/07/2019 FINDINGS: The heart is normal in size. There is no failure. There is no focal pulmonary consolidation . There are no pleural effusions. There is a right subclavian dual-lumen central venous pacemaker.[ IMPRESSION: No active disease in the chest. ACT 112: Negative or not required by law. Electronically signed by: Flaco Briggs M.D. 06/08/2019 8:15 PM
--- NOTE | 2019-06-08 20:41 | CT Scan Report ---
CT SCAN OF THE ABDOMEN AND PELVIS WITHOUT CONTRAST CLINICAL HISTORY: Diffuse abdominal pain COMPARISON STUDY: June 15, 2018 TECHNIQUE: CT scan of the abdomen and pelvis was performed from the lung bases to the proximal femurs . Images are reviewed in the axial, sagittal, and coronal planes. IV contrast was not administered fo r this examination. A dose lowering technique was utilized adhering to the principles of ALARA. CT DOSE: 337.41 mGycm FINDINGS: Lower chest: There is respiratory motion artifact. There are dependent atelectatic changes. Liver: The unenhanced liver is normal in size, contour, and attenuation. There is no intrahepatic lio iary ductal dilatation. Gallbladder: Surgically absent Spleen: Normal in size and attenuation. Pancreas: Unremarkable. Adrenal glands: Unremarkable. Kidneys: There are extensive left renal vascular calcifications. There are multiple left renal cysts measuring up to 4 cm in diameter. There is a dominant lower pole right renal cyst measuring 34 mm. Th ere is no hydronephrosis. There are multiple phleboliths. Bowel: There are no transition zones to indicate bowel obstruction. The appendix appears normal. Ther e is no acute diverticulitis. There is a mildly distended fluid-filled colon. Correlate with any hist ory of diarrhea. Peritoneum: There is no intraperitoneal free air or abdominal ascites. Vasculature: The abdominal aorta is normal in course and caliber. Adenopathy: None. Pelvic viscera: The uterus appears surgically absent. Skeletal structures: There is a grade 1 spondylolisthesis of L4 and L5. There is an old superior endp late T12 compression fracture. IMPRESSION: 1. No evidence of bowel obstruction. No evidence of free air 2. No evidence of acute appendicitis. No evidence of acute diverticulitis. 3. Fluid-filled colon. This can be seen in diarrheal states. Clinical correlation is advocated. ACT 112: Negative or not required by law. Electronically signed by: Flaco Briggs M.D. 06/08/2019 8:39 PM
[2019-06-08 20:46] LABS: Albumin Globulin Ratio 0.7 (0.9-2); Albumin Level 3.4 gm/dl (3.4-5.0); BUN Creatinine Ratio 15.5 (10-20); Bilirubin,Total 0.3 mg/dl (0.2-1); Calcium 6.9 mg/dl (8.5-10.1); Creatinine Clr Calc Pharmacy 5.9 ml/min; Est GFR (African American) 6.4; Est GFR (Non-African American) 5.5; Globulin 4.9 gm/dl (2.5-4.0); Thyroid Stimulating Hormone 0.091 uIu/ml (0.300-4.500); Total Protein 8.3 gm/dl (6.4-8.2); Troponin I 0.034 ng/ml (0-0.045)
[2019-06-08 21:03] LABS: T4 Free Thyroxine 0.59 ng/dl (0.8-1.6)
[2019-06-08 21:18] LABS: Potassium 2.6 mmol/L (3.5-5.1)
[2019-06-08 21:23] LABS: Magnesium 1.9 mg/dl (1.8-2.4)
[2019-06-08] MEDS ORDERED: POTASSIUM CHLORIDE / WTR 10 MEQ/100 ML PLCT IV ONE (21:27)
[2019-06-08] MEDS ORDERED: SODIUM CHLORIDE 0.9% 1000ML 500 ML IV ONE (21:33)
[2019-06-08] MEDS ORDERED: POTASSIUM CHLORIDE 20 MEQ/15 ML UDC PO STA (23:06)
[2019-06-08] MEDS ORDERED: CALCIUM GLUCONATE 10% 2,000 MG in SODIUM CHLORIDE 0.9% 50 ML IV STA (23:17)
[2019-06-08 23:41] LABS: Phosphorus 9.9 mg/dl (2.5-4.9)
[2019-06-08] MEDS ORDERED: ONDANSETRON INJ 2 MG/ML 2 ML VIAL IV PRN (23:43)
--- NOTE | 2019-06-08 23:51 | Emergency Department Note ---
Entered by Amber Long acting as a scribe for Michael Welsh MD ED Provider Note CHIEF COMPLAINT: Abdominal pain and weakness HISTORY OF PRESENT ILLNESS: The patient is an 79 year old female with past medical history of CKD, chronic constipation, hyponatremia, chronic rectal pain, FTT, GERD. IBS. HTN, hypothyroidism, who presents to the Emergency Room with complaints of constant abdominal pain and weakness that started a week ago. The patient reports she has nausea and vomiting. She additionally notes she has chronic constipation due to having slow motility in her colon. The patient states she has not had food in the last 2 days. 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 Patient did take a laxative without relief. Pt denies LOC, headache, fevers, chills, diaphoresis, visual changes, neck pain, chest pain, breathing difficulties, back pain, melena, hematochezia, urinary symptoms, numbness, lymphadenopathy, rash, or other complaints. REVIEW OF SYSTEMS: See HPI for pertinent positives and negatives. A total of ten systems were reviewed and were otherwise negative. PMHx/PSHx: CKD Chronic constipation Hyponatremia Chronic rectal pain FTT GERD IBS HTN Hypothyroidism SOCIAL HISTORY: Patient lives at home. Patient . PHYSICAL EXAM: GENERAL: Awake, alert, well-appearing, in no distress HENT: Normocephalic, atraumatic. Dry mucous membranes. EYES: PERRL. Normal conjunctiva. Sclera non-icteric. NECK: Inspection normal. Non-tender. Supple. No nuchal rigidity. FROM. No masses. RESPIRATORY: Clear to auscultation. No wheezes. No rales. Normal respiratory effort. CARDIAC: Normal rate. Normal rhythm. No murmurs. No rubs. Extremities warm and well perfused. Pulses equal. No JVD. GI: Soft, mildly-distended. Left lower quadrant tenderness to palpation. No rebound or guarding. No masses. RECTAL: Deferred. MUSCULOSKELETAL: Atraumatic. Chest examination reveals no tenderness. The back is symmetrical on inspection without obvious abnormality. There is no CVA tenderness to palpation. No joint edema. LOWER EXTREMITIES: Calves are equal size bilaterally and non-tender. No edema. No discoloration. NEURO: Normal sensorium. No sensory or motor deficits noted. SKIN: No rash or jaundice noted. EMERGENCY DEPARTMENT COURSE: 191: Past medical records reviewed. The patient was evaluated in room B6, and a complete history and physical examination were performed. 2143: Upon reevaluation, the patient is resting comfortably. I discussed laboratory and radiographic results with the patients. The patient verbalized agreement of the treatment plan. The patient will be evaluated for further management and care. 2146: I discussed the patient's case with Dr. Lopez, [facility]. He will evaluate the patient for further management. MEDICAL DECISION MAKING: Triage Nursing notes reviewed and agree them. Additional history obtained from the patient's caregivers. The patient's history was concerning for abdominal pain. Differential diagnosis: Etiologies such as appendicitis, diverticulitis, PUD, biliary pathology, UTI, pancreatitis, obstruction, mesenteric ischemia, aortic pathology, infections, inflammatory bowel disease, renal colic, as well as others were entertained. Physical examination findings: As above. ER treatment provided: Normal saline hydration IV fentanyl IV Zofran IV potassium On reassessment the patient felt better. Blood pressure improved Diagnostics interpreted by me: ECG: No acute ischemic change. The labs revealed an unremarkable CBC except for mild anemia. Hyponatremia noted. Potassium was low on chemistry panel. The patient has acute renal failure. Imaging studies: CT scan of the abdomen pelvis as noted below. The patient has fluid throughout the colon. No perforation or sign of infection. The patient has electrolyte abnormalities with severe dehydration and acute renal failure. Consultation: A consultation was placed with the [facility]ist. The case was discussed and diagnostics were reviewed. The patient was evaluated in the ER for further treatment. IMPRESSION: Acute renal failure Dehydration Hypokalemia Hyponatremia PLAN: Admit The scribe's documentation has been prepared under my direction and personally reviewed by me in its entirety. I confirm that the note above accurately reflects all work, treatment, procedures, and medical decision making performed by me. Impression & Plan Acute renal failure, Severe dehydration, Hypokalemia, Hyponatremia Past Med/Surg History Medical History Bipolar 1 disorder (Chronic) CKD (chronic kidney disease) stage 3, GFR 30-59 ml/min (Chronic) Diabetes type 2, controlled (Chronic) Fracture of parietal bone of skull GERD (gastroesophageal reflux disease) Hemorrhage, subdural, traumatic Hypertension (Chronic) Hypothyroidism IBS (irritable bowel syndrome) Pacemaker Subarachnoid, subdural, and extradural hemorrhage, following injury (Acute) Family History Other Family history non-contributory Social History Preferred Language: Vietnamese Communication Ability: Effective Visual Impairment: No Limitations Hearing Ability: Normal marital status: Current Living Situation: Spouse Feels Safe at Home: Yes Smoking Status: Never smoker Hx Alcohol Use: No Hx Substance Use: No Results & Data Vital Signs Vital Signs - 24 hr 06/08/19 19:07 06/08/19 19:52 06/08/19 20:00 Temperature 36.6 C Temperature Source Oral Pulse Rate 88 Pulse Rate [Apical] 84 Pulse Rate from SpO2 Sensor Pulse Rhythm [Apical] Pulse Strength [Apical] Respiratory Rate 16 20 Respiratory Effort / Characteristics Non-Labored Spontaneous Non-Labored Spontaneous Respiratory Depth Normal Normal Respiratory Pattern Blood Pressure 80/51 L Blood Pressure [Left Arm] 91/52 L 102/49 L Blood Pressure Mean 60 Blood Pressure Mean [Left Arm] 65 66 Blood Pressure Position [Left Arm] Lying Pulse Oximetry 97 Oxygen Delivery Method Room Air Room Air Oxygen Flow Rate Sepsis Recent Fever Within 48 Hours No Sepsis New/Unexplained Change in Mental Status No Sepsis Action Taken by Nursing No Action Required Oxygen Flow Rate - Titration Pulse Oximetry Post Tiitration 06/08/19 21:30 06/08/19 21:32 06/08/19 21:35 Temperature Temperature Source Pulse Rate 77 76 73 Pulse Rate [Apical] Pulse Rate from SpO2 Sensor 77 77 76 Pulse Rhythm [Apical] Pulse Strength [Apical] Respiratory Rate 21 14 17 Respiratory Effort / Characteristics Respiratory Depth Respiratory Pattern Blood Pressure 73/34 L 69/45 L 70/34 L Blood Pressure [Left Arm] Blood Pressure Mean 51 54 46 Blood Pressure Mean [Left Arm] Blood Pressure Position [Left Arm] Pulse Oximetry 96 95 93 Oxygen Delivery Method Room Air Room Air Oxygen Flow Rate Sepsis Recent Fever Within 48 Hours Sepsis New/Unexplained Change in Mental Status Sepsis Action Taken by Nursing Oxygen Flow Rate - Titration Pulse Oximetry Post Tiitration 06/08/19 21:43 06/08/19 21:45 06/08/19 22:00 Temperature Temperature Source Pulse Rate 81 81 79 Pulse Rate [Apical] Pulse Rate from SpO2 Sensor 83 Pulse Rhythm [Apical] Pulse Strength [Apical] Respiratory Rate 12 17 15 Respiratory Effort / Characteristics Respiratory Depth Respiratory Pattern Blood Pressure 87/43 L 94/53 L 83/42 L Blood Pressure [Left Arm] Blood Pressure Mean 63 65 60 Blood Pressure Mean [Left Arm] Blood Pressure Position [Left Arm] Pulse Oximetry 94 95 100 Oxygen Delivery Method Room Air Room Air Room Air Oxygen Flow Rate Sepsis Recent Fever Within 48 Hours Sepsis New/Unexplained Change in Mental Status Sepsis Action Taken by Nursing Oxygen Flow Rate - Titration Pulse Oximetry Post Tiitration 06/08/19 22:15 06/08/19 22:30 06/08/19 22:45 Temperature Temperature Source Pulse Rate 85 81 81 Pulse Rate [Apical] Pulse Rate from SpO2 Sensor 82 82 80 Pulse Rhythm [Apical] Pulse Strength [Apical] Respiratory Rate 14 21 13 Respiratory Effort / Characteristics Respiratory Depth Respiratory Pattern Blood Pressure 80/45 L 89/47 L 96/44 L Blood Pressure [Left Arm] Blood Pressure Mean 57 59 68 Blood Pressure Mean [Left Arm] Blood Pressure Position [Left Arm] Pulse Oximetry 100 95 98 Oxygen Delivery Method Room Air Room Air Oxygen Flow Rate Sepsis Recent Fever Within 48 Hours Sepsis New/Unexplained Change in Mental Status Sepsis Action Taken by Nursing Oxygen Flow Rate - Titration Pulse Oximetry Post Tiitration 06/08/19 23:36 06/08/19 23:39 Temperature Temperature Source Pulse Rate Pulse Rate [Apical] 83 Pulse Rate from SpO2 Sensor Pulse Rhythm [Apical] Regular Pulse Strength [Apical] Normal Respiratory Rate 20 Respiratory Effort / Characteristics Non-Labored Spontaneous Respiratory Depth Normal Respiratory Pattern Regular Blood Pressure Blood Pressure [Left Arm] 85/59 L Blood Pressure Mean Blood Pressure Mean [Left Arm] 67 Blood Pressure Position [Left Arm] Lying Pulse Oximetry 87 L 87 L Oxygen Delivery Method Room Air Room Air Oxygen Flow Rate 0 Sepsis Recent Fever Within 48 Hours Sepsis New/Unexplained Change in Mental Status Sepsis Action Taken by Nursing Oxygen Flow Rate - Titration 2 Pulse Oximetry Post Tiitration 93 Home Medications Current Medication List: was personally reviewed by me Laboratory Data Attestation: I reviewed the patient's lab results. Result diagrams: 06/08/19 19:48 06/08/19 20:53 Lab Results 06/08/19 06/08/19 06/08/19 Range/Units 19:46 19:48 19:48 WBC 9.90 (4.8-10.8) K/uL RBC 3.92 L (4.2-5.4) M/uL Hgb 11.8 L (12.0-16.0) g/dL Hct 33.6 L (37-47) % MCV 85.7 (80-100) fL MCH 30.1 (25-34) pg MCHC 35.1 (32-36) g/dL RDW Std Deviation 41.8 (36.4-46.3) fL RDW Coeff of Tim 13.4 (11.5-14.5) % Plt Count 393 (130-400) K/uL MPV 11.7 H (7.4-10.4) fL Immature Gran % (Auto) 0.2 % Neut % (Auto) 82.8 % Lymph % (Auto) 10.9 % [place] % (Auto) 6.0 % Eos % (Auto) 0.0 % Baso % (Auto) 0.1 % Immature Gran # (Auto) 0.02 (0.00-0.02) K/uL Neut # (Auto) 8.20 H (1.4-6.5) K/uL Lymph # (Auto) 1.08 L (1.2-3.4) K/uL [place] # (Auto) 0.59 (0.11-0.59) K/uL Eos # (Auto) 0.00 (0-0.5) K/uL Baso # (Auto) 0.01 (0-0.2) K/uL Sodium 125 L (136-145) mmol/L Potassium (3.5-5.1) mmol/L Chloride 92 L (98-107) mmol/L Carbon Dioxide 13 L (21-32) mmol/L Anion Gap 20.0 H (3-11) BUN 101 H (7-18) mg/dl Creatinine 6.51 H* (0.6-1.2) mg/dl Est Cr Clr Drug Dosing 5.9 ml/min Est GFR ( Amer) 6.4 Est GFR (Non-Af Amer) 5.5 BUN/Creatinine Ratio 15.5 (10-20) Glucose 235 H (70-99) mg/dl POC Lactic Acid Markie 1.09 (0.90-1.70) mmol/L Calcium 6.9 L (8.5-10.1) mg/dl Phosphorus (2.5-4.9) mg/dl Magnesium (1.8-2.4) mg/dl Total Bilirubin 0.3 (0.2-1) mg/dl AST (15-37) U/L ALT 15 (12-78) U/L Alkaline Phosphatase 282 H (45-117) U/L Troponin I 0.034 (0-0.045) ng/ml Total Protein 8.3 H (6.4-8.2) gm/dl Albumin 3.4 (3.4-5.0) gm/dl Globulin 4.9 H (2.5-4.0) gm/dl Albumin/Globulin Ratio 0.7 L (0.9-2) TSH 0.091 L (0.300-4.500) uIu/ml Free T4 0.59 L (0.8-1.6) ng/dl 06/08/19 Range/Units 20:53 WBC (4.8-10.8) K/uL RBC (4.2-5.4) M/uL Hgb (12.0-16.0) g/dL Hct (37-47) % MCV (80-100) fL MCH (25-34) pg MCHC (32-36) g/dL RDW Std Deviation (36.4-46.3) fL RDW Coeff of Tim (11.5-14.5) % Plt Count (130-400) K/uL MPV (7.4-10.4) fL Immature Gran % (Auto) % Neut % (Auto) % Lymph % (Auto) % [place] % (Auto) % Eos % (Auto) % Baso % (Auto) % Immature Gran # (Auto) (0.00-0.02) K/uL Neut # (Auto) (1.4-6.5) K/uL Lymph # (Auto) (1.2-3.4) K/uL [place] # (Auto) (0.11-0.59) K/uL Eos # (Auto) (0-0.5) K/uL Baso # (Auto) (0-0.2) K/uL Sodium (136-145) mmol/L Potassium 2.6 L (3.5-5.1) mmol/L Chloride (98-107) mmol/L Carbon Dioxide (21-32) mmol/L Anion Gap (3-11) BUN (7-18) mg/dl Creatinine (0.6-1.2) mg/dl Est Cr Clr Drug Dosing ml/min Est GFR ( Amer) Est GFR (Non-Af Amer) BUN/Creatinine Ratio (10-20) Glucose (70-99) mg/dl POC Lactic Acid Markie (0.90-1.70) mmol/L Calcium (8.5-10.1) mg/dl Phosphorus 9.9 H (2.5-4.9) mg/dl Magnesium 1.9 (1.8-2.4) mg/dl Total Bilirubin (0.2-1) mg/dl AST 12 L (15-37) U/L ALT (12-78) U/L Alkaline Phosphatase (45-117) U/L Troponin I (0-0.045) ng/ml Total Protein (6.4-8.2) gm/dl Albumin (3.4-5.0) gm/dl Globulin (2.5-4.0) gm/dl Albumin/Globulin Ratio (0.9-2) TSH (0.300-4.500) uIu/ml Free T4 (0.8-1.6) ng/dl Administered Medications Sodium Chloride (Nss 1000ml) 1,000 mls @ 125 mls/hr IV .Q8H [facility] Stop: 06/09/19 03:29 Last Admin: 06/08/19 20:35 Dose: 125 mls/hr Documented by: [id number] Discontinued Medications Fentanyl Citrate (Fentanyl Citrate) 25 mcg IV NOW STA Stop: 06/08/19 19:19 Last Admin: 06/08/19 20:00 Dose: 25 mcg Documented by: [id number] Sodium Chloride (Nss) 500 mls @ 999 mls/hr IV .Q31M [facility] Stop: 06/08/19 20:00 Last Infusion: 06/08/19 20:34 Dose: 0 mls/hr Documented by: [id number] Admin: 06/08/19 20:02 Dose: 999 mls/hr Documented by: [id number] Potassium Chloride (K Israel / Wtr) 10 meq in 100 mls @ 100 mls/hr IV ONE ONE Stop: 06/08/19 22:26 Last Infusion: 06/08/19 22:48 Dose: 0 mls/hr Documented by: [id number] Admin: 06/08/19 21:47 Dose: 100 mls/hr Documented by: [id number] Sodium Chloride (Nss 1000ml) 500 mls @ 999 mls/hr IV .Q31M ONE Stop: 06/08/19 22:03 Last Infusion: 06/08/19 22:17 Dose: 0 mls/hr Documented by: [id number] Admin: 06/08/19 21:37 Dose: 999 mls/hr Documented by: [id number] Ondansetron HCl (Zofran) 4 mg IV NOW STA Stop: 06/08/19 19:19 Last Admin: 06/08/19 20:00 Dose: 4 mg Documented by: [id number] Potassium Chloride (Faviola Ciel Elix) 60 meq PO NOW STA Stop: 06/08/19 23:07 Last Admin: 06/08/19 23:25 Dose: 20 meq Documented by: [id number] Imaging Data Radiologist's Impression: Radiology results as stated below per my review and the radiologist's interpretation: XR chest 1V portable CLINICAL HISTORY: weakness COMPARISON STUDY: 05/07/2019 FINDINGS: The heart is normal in size. There is no failure. There is no focal pulmonary consolidation. There are no pleural effusions. There is a right subclavian dual-lumen central venous pacemaker.[ IMPRESSION: No active disease in the chest. ACT 112: Negative or not required by law. Electronically signed by: Flaco Briggs M.D. 06/08/2019 8:[address] SCAN OF THE ABDOMEN AND PELVIS WITHOUT CONTRAST CLINICAL HISTORY: Diffuse abdominal pain COMPARISON STUDY: June 15, 2018 TECHNIQUE: CT scan of the abdomen and pelvis was performed from the lung bases to the proximal femurs. Images are reviewed in the axial, sagittal, and coronal planes. IV contrast was not administered for this examination. A dose lowering technique was utilized adhering to the principles of ALARA. CT DOSE: 337.41 mGycm FINDINGS: Lower chest: There is respiratory motion artifact. There are dependent atelectatic changes. Liver: The unenhanced liver is normal in size, contour, and attenuation. There is no intrahepatic biliary ductal dilatation. Gallbladder: Surgically absent Spleen: Normal in size and attenuation. Pancreas: Unremarkable. Adrenal glands: Unremarkable. Kidneys: There are extensive left renal vascular calcifications. There are multiple left renal cysts measuring up to 4 cm in diameter. There is a dominant lower pole right renal cyst measuring 34 mm. There is no hydronephrosis. There are multiple phleboliths. Bowel: There are no transition zones to indicate bowel obstruction. The appendix appears normal. There is no acute diverticulitis. There is a mildly distended fluid-filled colon. Correlate with any history of diarrhea. Peritoneum: There is no intraperitoneal free air or abdominal ascites. Vasculature: The abdominal aorta is normal in course and caliber. Adenopathy: None. Pelvic viscera: The uterus appears surgically absent. Skeletal structures: There is a grade 1 spondylolisthesis of L4 and L5. There is an old superior endplate T12 compression fracture. IMPRESSION: 1. No evidence of bowel obstruction. No evidence of free air 2. No evidence of acute appendicitis. No evidence of acute diverticulitis. 3. Fluid-filled colon. This can be seen in diarrheal states. Clinical correlation is advocated. ACT 112: Negative or not required by law. Electronically signed by: Flaco Briggs M.D. 06/08/2019 8:39 PM ECG Data Attestation: I personally reviewed and interpreted this ECG as follows: Indication: + abdominal pain Rate (beats per minute): 80 Rhythm: normal sinus ECG Intervals/blocks: + Normal QRS and + Prolonged QT ECG ST segments: + ST depression (Lateral) ECG Findings: no PACs and no PVCs Comparison ECG Date: from (03/12/18) Change: the following changes noted (The lateral ST depression changes are similar. ) Blood Pressure Blood Pressure Findings: Low blood pressure Blood Pressure Disposition: further management by hospitalist Discharge Plan Visit Data Chief Complaint: Weakness Stated Complaint: WEAKNESS, VOMITING, PAIN ED Provider: Michael Welsh Discharge Problem: Acute renal failure, Severe dehydration, Hypokalemia, Hyponatremia Patient Disposition: Being Evaluated by Hospitalist Forms Stand Alone Forms: [facility] Prescriptions Prescriptions: No Action multivitamin tablet 1 tab PO DAILY RF: 0 atorvastatin 20 mg tablet 20 mg PO DAILY RF: 0 valsartan 160 mg tablet 160 mg PO DAILY RF: 0 furosemide 40 mg tablet 40 mg PO DAILY RF: 0 amlodipine 2.5 mg Tablet 7.5 mg PO DAILY RF: 0 pantoprazole [Protonix] 40 mg Tablet,Delayed Release (Dr/Ec) 40 mg PO DAILY RF: 0 Novolog Flexpen U-100 Insulin 100 unit/mL Insulin Pen 8 unit SUBCUT AMPM RF: 0 Novolog Flexpen U-100 Insulin 100 unit/mL Insulin Pen 8 unit SUBCUT QDL RF: 0 quetiapine [Seroquel XR] 300 mg Tablet Extended Release 24 Hr 300 mg PO DAILY RF: 0 Lantus Solostar U-100 Insulin 100 unit/mL (3 mL) Insulin Pen 10 unit SUBCUT HS RF: 0 levothyroxine 112 mcg tablet 112 mcg PO QAM RF: 0 Linzess 290 mcg capsule 290 mcg PO DAILY RF: 0 hydrocortisone [Proctozone-HC] 2.5 % cream with perineal applicator 1 applic MN Q8H PRN (Reason: Hemorrhoids) RF: 0 Referrals Referrals: Usama Meadows MD [Primary Care Provider] - Discharge Problem: Acute renal failure Qualifiers: Acute renal failure type: unspecified Qualified Code(s): N17.9 - Acute kidney failure, unspecified The scribe's documentation has been prepared under my direction and personally reviewed by me in its entirety. I confirm that the note above accurately reflects all work, treatment, procedures, and medical decision making performed by me.
[2019-06-09] MEDS ORDERED: NITROGLYCERIN SL 0.4 MG/TAB TAB SL PRN (00:49)
[2019-06-09] MEDS ORDERED: ACETAMINOPHEN 325 MG TAB PO PRN (00:49)
[2019-06-09] MEDS ORDERED: COSYNTROPIN 250 MCG in SYRINGE 4 ML IV ONE (00:49)
[2019-06-09] MEDS ORDERED: HYDROCORTISONE HC 2.5% CRM 30GM TUBE EXT PRN (00:49)
[2019-06-09] MEDS: SODIUM BICARBONATE 8.4% 150 MEQ, POTASSIUM CHLORIDE 20 MEQ in DEXTROSE 5% 1,000 ML IV SCH ×2 (00:55→11:52)
[2019-06-09] MEDS ORDERED: GLUCAGON FOR INJ 1 MG VIAL SQ PRN (01:00)
[2019-06-09] MEDS ORDERED: GLUCOSE 10 TABS/TUBE PO PRN (01:00)
[2019-06-09] MEDS ORDERED: DEXTROSE 50% 50 ML SYRINGE IV PRN (01:00)
[2019-06-09] MEDS ORDERED: CARBOHYDRATES FOR HYPOGLYCEMIA PO PRN (01:00)
[2019-06-09] MEDS ORDERED: GLUCOSE 40% GEL 15 GM TUBE PO PRN (01:00)
[2019-06-09] MEDS: POTASSIUM CHLORIDE / WTR 10 MEQ/100 ML PLCT IV SCH ×3 (01:21→03:54)
--- NOTE | 2019-06-09 01:33 | History and Physical Report ---
DATE OF ADMISSION: 06/08/2019 CHIEF COMPLAINT: Lethargy, hypotension. HISTORY OF PRESENT ILLNESS: This is an 79-year-old female with past medical history significant for type 2 diabetes, chronic kidney disease stage IV, hyperlipidemia, hypothyroidism, hypertension, chronic constipation, GERD, bipolar disorder, history of breast cancer, history of cardiac pacemaker, does not know why she has a pacemaker, lives at home with her . has dementia. The patient says she has caregivers, who comes 3 times a week .Says she has chronic constipation, and since her teenager she has seen multiple specialists for it and she says only [facility] works for her and she gets abdominal cramps with it and she recently saw in GI and started on Linzess and advised for colonoscopy which she declined. The patient also has a history of subdural hematoma after a fall, used to be on Keppra, currently she seems to be not on Keppra, presents with lethargy. The patient says since last 3-4 days, she is feeling very weak, sore all over the body, does not want to get up from the bed. Whatever she was eating, she was vomiting and she felt that she is going to and finally called her caregivers today and was brought in here. She says she is using stool softener. She moved her bowels once a day but not much because she was not eating anything. In the ER when she came in, she was hypotensive with systolic blood pressure in the 70s. With the fluids, blood pressure came up. Her labs were abnormal with sodium of 125, potassium 2.6, creatinine of 6.5, recent creatinine was 2.4 and both TSH and free T4 were low. Currently resting comfortably and alert and oriented. Denies any headache. Denies any blurred visions, no earache, no runny nose, no sore throat, no difficulty swallowing. No cough, no fever, no chills, no chest pain, no shortness of breath. She was having abdominal pain when she came in, but now it got resolved. Denies any blood in stools or black stools. She says she is micturating, but not much because she is not eating or drinking. Denies any hematuria or burning micturition. No rash. She is not ambulating in the last few days because of weakness and soreness. ALLERGIES: TO IODINE. PAST MEDICAL HISTORY: As mentioned above. PAST SURGICAL HISTORY: Breast lesion excision, laparoscopic hysterectomy, lasering of cataracts, cholecystectomy, vitrectomy with removal of epiretinal membrane, right eye. MEDICATIONS: The patient is on Linzess 290 mcg daily, lactulose 30 mL once daily, but the patient is not taking as per the Epic, Senokot 5 mL b.i.d., Lipitor 20 mg p.o. daily, amlodipine 7.5 mg daily, levothyroxine 112 mcg daily, Protonix 40 mg daily, Diovan 162 mg daily, Seroquel 300 mg p.o. daily, Lasix 40 mg p.o. daily, insulin 4 units in the morning, 5 in the lunch and 4 units in the evening, Lantus 8 units at night, multivitamins 1 tablet in a.m. FAMILY HISTORY: Significant for sister who had cancer, diabetes. Father had stroke, hypertension, eye problems, diabetes. Brother has diabetes. Mother has hypertension. SOCIAL HISTORY: , lives with her who has dementia, has caregivers who comes to home from personal assisted. No smoking history. No alcohol use, no drug use. REVIEW OF SYMPTOMS: As per HPI. Rest of review of symptoms is negative. PHYSICAL EXAMINATION: GENERAL: The patient is old and frail, not in acute distress. VITAL SIGNS: Temperature 36.6, pulse 81, respiratory rate 13, blood pressure 96/44, oxygen 98% on room air. HEENT: No pallor, no icterus. Pupils equal, round, and reactive to light. NECK: No JVD, no neck masses, no carotid bruits. CARDIOVASCULAR: S1, S2 heard, regular rate and rhythm, no murmur, no gallop. RESPIRATORY SYSTEM: Normal AP diameter. No accessory muscle use. No wheezing, no crackles. ABDOMEN: Soft, bowel sounds present, nontender. No distention. CENTRAL NERVOUS SYSTEM: Alert and oriented. Obeys simple commands. Moves extremities. EXTREMITIES: No edema, no erythema. LABORATORY DATA: WBC 9.9, hemoglobin 11.8, hematocrit 33.6, platelets 393. Sodium 125, potassium 2.6, chloride 292, bicarbonate 13, anion gap 20, BUN 101, creatinine 6.5, serum glucose 235, point of care lactic acid 1.09, calcium 6.9, magnesium 1.9, total bilirubin 0.3, AST 12, ALT 15, alkaline phosphatase is 282. Troponin I 0.034. Albumin 3.4. TSH 0.09, free T4 0.59. IMAGING: CT of abdomen and pelvis, no evidence of bowel obstruction, no evidence of free air, no evidence of acute appendicitis, no evidence of acute diverticulitis, fluid-filled colon. This can be seen in diarrheal state. Clinical correlation is advised. Chest x-ray: No acute disease in the chest. EKG: Normal sinus rhythm with rate of 80, nonspecific ST changes, prolonged QTC of 588. ASSESSMENT AND PLAN: This is an 79-year-old female who presents with generalized weakness, lethargy and found to have hypotension, electrolyte abnormalities and low TSH, low free T4 and also acute kidney injury. 1. Acute kidney injury on chronic kidney disease stage IV. Baseline creatinine around 2.4, presents with creatinine of 6.5. CT abdomen and pelvis, no obstruction. This could be from the hypotension and dehydration because she is not eating in the last 2-3days. Holding her Diovan and Lasix and amlodipine. Received fluids in the ER. Discussed with nephrology, starting on IV D5 water with 150 mEq of bicarbonate and 20meq of potassium at 100 mL per hour. Check BMP q. 6 hours. Follow the labs closely. Monitor in tele floor. 2. Hyponatremia. Sodium of 125. Checking serum and urine osmolality, urine sodium, urinalysis, BMP q. 6 hours. Fluids as above. Nephrology consulted.Close monitor. 3. Hypokalemia. K riders and also KCl in fluids. We will follow the labs. She is also getting 20 mg p.o. 3. Metabolic acidosis, probably from acute kidney injury. We will follow the repeat labs. 4. Hypotension, possibly from dehydration and blood pressure medications. 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 We will follow CT of the head. Also follow cosyntropin test. If the blood pressure is not coming up, we will start on IV hydrocortisone. 5. Abnormal thyroid function test, low TSH and low free T4. The patient is on levothyroxine tablet. The patient has history of subdural hematoma in the past. We will get a CT of the head. Once Cosyntropin stimulation test comes back, we may start on IV hydrocortisone along with probably IV Synthroid and follow the repeat labs. Currently continue home Synthroid. Needs close followup. 6. Diabetes. Hold home insulin. We will place her on sliding scale. Follow HbA1c. Follow the blood sugars. 7. Hypocalcemia, will give iv calcium. follow labs. 8. Prolonged QT. Avoid QT prolonging drugs. Follow repeat EKG. 9. History of bipolar, on Seroquel. Currently held.We will follow the EKG and QT improves will restart Seroquel.. 10.. History of hypertension, currently hypotension. We will hold Diovan, Lasix and amlodipine. 11. Hyperlipidemia, on statin. 12. Chronic constipation. Currently, CAT scan showing some diarrheal illness. We will hold home laxatives for now. 13. History of cardiac pacemaker. 14. Deep venous thrombosis prophylaxis, sequential compression devices for now. 15. Disposition: Closely monitor in tele floor. Code status: DNR as per my discussion with the patient,, caregivers say that she has paperwork signed for DNR. PT, OT prior to discharge. Social Service to help with discharge planning. NAZIA
[2019-06-09 02:20] LABS: BUN Creatinine Ratio 16.3 (10-20); Calcium 7.2 mg/dl (8.5-10.1); Creatinine Clr Calc Pharmacy 6.1 ml/min; Est GFR (African American) 7.1; Est GFR (Non-African American) 6.1; Potassium 3.5 mmol/L (3.5-5.1)
[2019-06-09] MEDS: LEVOTHYROXINE SODIUM 112 MCG TABLET PO SCH (05:40)
--- NOTE | 2019-06-09 06:38 | CT Scan Report ---
CT head/brain wo con CLINICAL HISTORY: 79 years-old Female with central hypothyroidism?, hx of SDH. Hypothyroidism TECHNIQUE: Multiple axial CT images of the head were obtained without contrast. A dose lowering tech nique was utilized adhering to the principles of ALARA. CT DOSE: 614.27 mGy.cm COMPARISON: Head CT 05/07/2019 FINDINGS: No acute intracranial hemorrhage, midline shift, intracranial mass, hydrocephalus, territorial ischem ia or abnormal extra-axial collection. Age-related involutional changes with mild ex vacuo ventriculo megaly. White matter hypodensities suggest chronic microvascular ischemic disease. Cerebral vascular calcifications are noted. The calvarium is intact. The paranasal sinuses, mastoid air cells, and middle ear cavities are clear . IMPRESSION: No acute intracranial abnormality. ACT 112: Negative or not required by law. The above report was generated using voice recognition software. It may contain grammatical, syntax o r spelling errors. Electronically signed by: Didier Giordano M.D. 06/09/2019 6:37 AM
[2019-06-09] MEDS ORDERED: COSYNTROPIN 250 MCG in SYRINGE 4 ML IV SCH (08:00)
[2019-06-09 08:26] LABS: Eosinophils # (auto) 0.01 K/uL (0-0.5); Eosinophils % (auto) 0.1 %; Hematocrit (blood only) 28.2 % (37-47); Hemoglobin 9.7 g/dL (12.0-16.0); Immature Granulocytes # (auto) 0.04 K/uL (0.00-0.02); Immature Granulocytes % (auto) 0.4 %; Lymphocytes # (auto) 1.31 K/uL (1.2-3.4); Lymphocytes % (auto) 14.2 %; Mean Corpuscular Hemoglobin 29.8 pg (25-34); Mean Corpuscular Hgb Conc 34.4 g/dL (32-36); Mean Corpuscular Volume 86.8 fL (80-100); Mean Platelet Volume 11.2 fL (7.4-10.4); Monocytes # (auto) 0.64 K/uL (0.11-0.59); Monocytes % (auto) 6.9 %; Neutrophils # (auto) 7.22 K/uL (1.4-6.5); Neutrophils % (auto) 78.4 %; Platelet Count 295 K/uL (130-400); RDW Coefficient of Variation 13.3 % (11.5-14.5); RDW Standard Deviation 42.5 fL (36.4-46.3); Red Blood Count 3.25 M/uL (4.2-5.4); White Blood Count 9.22 K/uL (4.8-10.8)
[2019-06-09] MEDS: INSULIN ASPART 100 UNITS/ML 3 ML PEN SC SCH ×4 (08:36→20:20)
[2019-06-09] MEDS: PANTOprazole 40 MG TAB PO SCH (08:37)
[2019-06-09 09:18] LABS: BUN Creatinine Ratio 17.7 (10-20); Calcium 7.1 mg/dl (8.5-10.1); Creatinine Clr Calc Pharmacy 6.7 ml/min; Est GFR (African American) 7.9; Est GFR (Non-African American) 6.8; Magnesium 1.7 mg/dl (1.8-2.4); Potassium 3.9 mmol/L (3.5-5.1); Thyroid Stimulating Hormone 0.065 uIu/ml (0.300-4.500)
[2019-06-09 09:41] LABS: Estimated Average Glucose 197 mg/dl; Hemoglobin A1C 8.5 % (4.5-5.6)
[2019-06-09] MEDS ORDERED: Nursing to Pharmacy Communication ONE (09:46)
[2019-06-09 14:04] LABS: BUN Creatinine Ratio 19.1 (10-20); Calcium 7.3 mg/dl (8.5-10.1); Est GFR (African American) 8.4; Est GFR (Non-African American) 7.3; Potassium 3.1 mmol/L (3.5-5.1)
[2019-06-09] MEDS ORDERED: POTASSIUM CHLORIDE 20 MEQ TABCR PO STA ×2 (14:17→18:00)
[2019-06-09] MEDS ORDERED: MAGNESIUM SULFATE / D5W 1 GM/100 ML BAG IV STA (14:18)
[2019-06-09 14:39] LABS: Appearance Urine Cloudy (Clear); Bacteria Urine Automated 2+ (Negative); Bilirubin Urine Negative (Negative); Blood Urine 1+ (Negative); Color Urine Yellow; Epithelial Cell Urine Auto 0-5 /lpf (0-5); Glucose Urine UA Negative (Negative); Ketones Urine Negative (Negative); Leukocyte Esterase Urine 2+ (Negative); Nitrite Urine Negative (Negative); Protein Urine 1+ (Negative); RBC Urine Automated 0-4 /hpf (0-4); Specific Gravity Urine 1.013 (1.000-1.030); Urobilinogen Urine Negative (Negative); WBC Urine Automated >30 /hpf (0-5)
--- NOTE | 2019-06-09 14:45 | Hospitalist Progress Note ---
Date of Service June 09, 2019 Assessment & Plan (1) Acute renal failure: Patient is 79 yr female who presents with nausea, abd pain, generalized weakness, lethargy and found to be hypotension, electrolyte abnormalities, acute kidney injury, metabolic acidosis. YEVGENIY on CKD IV Metabolic acidosis Baseline Cr ~2.4 Likely prerenal due to nausea/vomiting, laxative use and due to meds (Lasix, ARB) --CT ABD: Extensive left renal vascular calcifications and multiple left renal cysts. No hydronephrosis. Multiple phleboliths.No evidence of bowel obstruction. No evidence of free air. No evidence of acute appendicitis. No evidence of acute diverticulitis. Fluid-filled colon. This can be seen in diarrheal states. --Presented with Cr: 6.5 --Hold Lasix, ARB, laxatives --Continue IV fluids as per nephrology Appreciate nephrology input Monitor renal function, electrolytes closely Hypotension Blood pressure improved with IV fluids Antihypertensives held for now Monitor blood pressure closely Hyponatremia Sodium levels: 125 on presentation Sodium:128 today Urine osmolality pending Urine sodium 31 IV fluids as above Hypokalemia Hypomagnesemia Hypocalcemia Likely due to GI loss, diuretics Replace electrolytes as needed Abnormal EKG T wave inversions in lateral leads Likely due to hypokalemia ECHO: No segmental left ventricular wall motion abnormalities. EF 65 to 70% Troponin negative Patient denies any chest pain Abnormal thyroid function test low TSH and low free T4 DD: Secondary Hypothyroidism Vs euthyroid sick syndrome Vs secondary to Seroquel H/O acquired hypothyroidism CT head: No acute intracranial abnormality Continue levothyroxine Will need repeat TSH, free T4 levels checked DM II Hb A1C: 8.5 Continue ISS, lantus Monitor BGs Prolonged QT Avoid QT prolonging drugs as able Monitor EKG H/O Bipolar On Seroquel at home Currently Seroquel held due to QT prolongation Consider psychiatry evaluation if patient agrees Hyperlipidemia on statin. Chronic constipation-- unchanged per patient CT scan showing findings suggestive of diarrheal state Hold Linzess due to significant renal insufficiency Last bowel movement yesterday Refused colonoscopy in the past S/P Cardiac pacemaker H/O Subdural Hematoma DVT Px SCDs for now Code Status DNI/DNR Disposition: PT, OT prior to discharge. Social Service to help with discharge planning. Subjective Patient is seen and examined at bedside States feeling better today No nausea, vomiting, abd pain today Requests laxatives for BMs Renal function slightly improved with IV fluids States feeling tired and has chronic generalized pain Denies any chest pain, SOB, dizziness Offers no other complaints Review of Systems Review of Systems: All systems reviewed & are unremarkable except as noted in HPI & below Physical Exam Physical Exam: Physical Exam: Vitals signs as noted above General Appearance:Thin, no apparent distress, elderly Head: normocephalic, Atraumatic Eyes: normal inspection, EOMI Neck: supple, Trachea midline Respiratory/Chest: Normal breath sounds, CTA Cardiovascular: S1, S2, No murmur Abdomen/GI:Soft, Non tender, Bowel sounds present Extremities/Musculoskelatal:normal inspection, no edema Neurologic/Psych:AAOX3, grossly no focal neurological deficits Skin: normal color, warm Results & Data Vital Signs (Past 12 Hours) Vital Signs Temp Pulse Pulse Resp BP Pulse Ox 06/09/19 07:33 73 06/09/19 06:50 36.3 C L 76 16 113/67 97 06/09/19 03:30 36.6 C 75 16 89/53 L 92 06/09/19 02:48 84 Laboratory Results Short CBC 06/08/19 06/09/19 Range/Units 19:48 08:13 WBC 9.90 9.22 (4.8-10.8) K/uL Hgb 11.8 L 9.7 L (12.0-16.0) g/dL Hct 33.6 L 28.2 L (37-47) % Plt Count 393 295 (130-400) K/uL BMP 06/08/19 06/08/19 06/09/19 19:48 20:53 01:18 Sodium 125 L 130 L Potassium 2.6 L 3.5 D Chloride 92 L 101 Carbon Dioxide 13 L 14 L BUN 101 H 96 H Creatinine 6.51 H* 5.93 H* D Glucose 235 H 142 H Calcium 6.9 L 7.2 L 06/09/19 06/09/19 08:13 13:14 Sodium 130 L 128 L Potassium 3.9 3.1 L D Chloride 99 97 L Carbon Dioxide 14 L 15 L BUN 96 H 99 H Creatinine 5.43 H* D 5.16 H* Glucose 253 H 294 H Calcium 7.1 L 7.3 L Cardiac Enzymes 06/08/19 Range/Units 19:48 Troponin I 0.034 (0-0.045) ng/ml Liver Function 06/08/19 06/08/19 Range/Units 19:48 20:53 Total Bilirubin 0.3 (0.2-1) mg/dl AST 12 L (15-37) U/L ALT 15 (12-78) U/L Alkaline Phosphatase 282 H (45-117) U/L Albumin 3.4 (3.4-5.0) gm/dl (1) Acute renal failure Acute renal failure type: unspecified Qualified Code(s): N17.9 - Acute kidney failure, unspecified
[2019-06-09 15:11] LABS: Cast Urine Automated 0 /lpf (0-5)
--- NOTE | 2019-06-09 17:15 | Nephrology Consultation ---
Date of Consultation June 09, 2019 Assessment & Plan (1) Acute renal failure: no urgent indication for dialysis cannot rule out need this admission; clinically improving; not oliguric; prerenal versus ischemic ATN; admission ua most c/w possible UTI though she has no voiding sx. -daily bmp -cont IVF as below -f/u urine cx -bp improved now: maintain sbp > 100 Present on Admission?: Yes (2) Hypokalemia: has 20 mEq/L in sodium bicarb gtt >> gtt necessary but makes low K more challenging > got 40 mEq po x 1 today; will give another 40 meQ x 1 in addition to increasing k in fluids to 40 mEq Present on Admission?: Yes (3) Hyponatremia: hypertonic hyponatremia >> suspect hypertonicity from uremic toxins, to a lesser degree from elevated BG -cont aggressive hydration and defer to hospitalist/pharmacy for BG mgt Present on Admission?: Yes (4) High anion gap metabolic acidosis: slight improvement w/bicarb administration; continue aggressive bicarb gtt; suspect from advanced renal failure; from starvation ketosis; lactate has b een wnl; no ingestion hx; no offending meds -if worsening clinically low threshold for ABG but otherwise defer for now -next bmp in am Present on Admission?: Yes (5) CKD (chronic kidney disease) stage 4, GFR 15-29 ml/min: labile creat at baseline which is 2-low 2's; nephrotic range proteinuria; follows most recently w/ Dr Polo in CKD clinic Present on Admission?: Yes History of Present Illness Reason for Consultation: YEVGENIY on CKD Requesting Physician: Dr Lopez Attending Physician: Uday Clifford MD History of Present Illness 79 y/o Malay F whom I'm asked to see for YEVGENIY on CKD 4 after she was admitted for same as well as to evaluate diffuse body aches, decreased po w/ emesis and hypotension. 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 has had hyponatremia in past including admission for same 02/2018 treated w/ salt tabs and holding ARB; not on salt tabs any longer. she is also caregiver for w/ advanced dementia. she follows w/ Dr Polo in CKD clinic; last seen 01/2019. her creatinine has been running in low 2's w/ considerable lability; last OP creat was 2.1 in 01/2019 but also had same value on [facility] ER eval 05/07/19. on presentaiton yesterday, she had creatinine 6.5; K 2.6; bicarb 13, Na 125; SBP ran 70-90s on presentation. Admitting team discussed her care w/ me: we started her on bicarb gtt at 100 mL hourly ON; she improved to creatinine 5.4 today w/ K 3.9, bic 14, sNa 130; phos 9.9. she feels much improved today -- no further abd pain, no N, body aches resolved. Allergies Allergy/AdvReac Type Severity Reaction Status Date / Time Iodinated Contrast Media Allergy Severe Anaphylaxis Verified 05/07/19 15:11 mold Allergy Unknown UNKNOWN Verified 05/07/19 15:11 pollen extracts Allergy Unknown UNKNOWN Verified 05/07/19 15:11 Dust Allergy Unknown UNKNOWN Uncoded 05/07/19 15:11 Fungi Allergy Unknown UNKNOWN Uncoded 05/07/19 15:11 Home Medications Home Medications Medication Instructions Recorded Confirmed Type amlodipine 7.5 mg PO DAILY 05/30/18 06/08/19 History insulin aspart U-100 [Novolog 8 unit SUBCUT AMPM 05/30/18 06/08/19 History Flexpen U-100 Insulin] insulin aspart U-100 [Novolog 8 unit SUBCUT QDL 05/30/18 06/08/19 History Flexpen U-100 Insulin] insulin glargine [Lantus Solostar 10 unit SUBCUT HS 05/30/18 06/08/19 History U-100 Insulin] pantoprazole [Protonix] 40 mg PO DAILY 05/30/18 06/08/19 History quetiapine [Seroquel XR] 300 mg PO DAILY 05/30/18 06/08/19 History atorvastatin 20 mg tablet 20 mg PO DAILY 03/03/19 06/08/19 History furosemide 40 mg tablet 40 mg PO DAILY 03/03/19 06/08/19 History multivitamin 1 tab PO DAILY 03/03/19 06/08/19 History valsartan 160 mg tablet 160 mg PO DAILY 03/03/19 06/08/19 History levothyroxine 112 mcg PO QAM 05/07/19 06/08/19 History hydrocortisone [Proctozone-HC] 1 applic SC Q8H PRN 06/08/19 06/08/19 History linaclotide [Linzess] 290 mcg PO DAILY 06/08/19 06/08/19 History Patient History Medical History Bipolar 1 disorder (Chronic) CKD (chronic kidney disease) stage 3, GFR 30-59 ml/min (Chronic) Diabetes type 2, controlled (Chronic) Fracture of parietal bone of skull GERD (gastroesophageal reflux disease) Hemorrhage, subdural, traumatic Hypertension (Chronic) Hypothyroidism IBS (irritable bowel syndrome) Pacemaker Subarachnoid, subdural, and extradural hemorrhage, following injury (Acute) Family History Other Family history non-contributory Social History Preferred Language: Citizen Of [place] Communication Ability: Effective Visual Impairment: No Limitations Hearing Ability: Normal Beliefs That Will Affect Care: None marital status: Current Living Situation: Spouse Feels Safe at Home: Yes Safety Concerns: Afraid for Others in Home Smoking Status: Never smoker Hx Alcohol Use: No Hx Substance Use: No Review of Systems Review of Systems: All systems reviewed & are unremarkable except as noted in HPI & below Constitutional: as per Subjective / HPI, + fatigue and + weakness; no fever Eyes: no worsening vision Ear, Nose, Mouth, Throat: see below and no sore throat Respiratory: no cough and no dyspnea Cardiovascular: no palpitations and no edema Gastrointestinal: as per Subjective / HPI Genitourinary: no dysuria, no difficulty urinating, no urinary frequency and no urinary hesitancy states has not voided since arrival Integumentary: no lesions and no non-healing lesions Neurologic: + generalized weakness; no falls Psychiatric: + depression and + anhedonia Endocrine: + fatigue Hematologic / Lymphatic: no easy bleeding Physical Exam Constitutional: well developed, + acute distress (tearful, anxious), + thin and cooperative states repeatedly "I have been feeling like human garbage" Eyes: EOM intact bilaterally; no EOM movement deficit ENMT: Ears: no external ear abnormality Nose: no external nose abnormality Mouth: + dry oral mucous membranes Neck: no nuchal rigidity Respiratory: normal respiratory effort Auscultation: lungs clear to auscultation bilaterally (though ? decreased BS on L post [place]) and + diminished lung sounds Cardiovascular: RRR, no murmur, no edema Gastrointestinal (Abdomen): Inspection/Auscultation: normal bowel sounds; abdomen not distended Percussion/Palpation: abdomen soft; abdomen nontender, no guarding and abdomen not rigid Musculoskeletal: Extremities: strength 5/5 throughout Skin: no rashes, warm and dry Neurologic: [place], fluent speech, no tremor Psychiatric: Orientation: alert and oriented x 3 Speech: + pressured speech Affect: + anxious affect and + tearful affect Genitourinary: de [place] w/ ample clear yellow urine Results & Data Vital Signs (Past 12 Hours) Vital Signs Temp Pulse Pulse Resp BP Pulse Ox 06/09/19 15:44 36.7 C 73 18 137/71 93 06/09/19 15:38 77 06/09/19 07:33 73 06/09/19 06:50 36.3 C L 76 16 113/67 97 Laboratory Results 06/09/19 08:13 06/09/19 13:14 Diagnostic Findings abd / pelv ct Lower chest: There is respiratory motion artifact. There are dependent atelectatic changes. Liver: The unenhanced liver is normal in size, contour, and attenuation. There is no intrahepatic biliary ductal dilatation. Gallbladder: Surgically absent Spleen: Normal in size and attenuation. Pancreas: Unremarkable. Adrenal glands: Unremarkable. Kidneys: There are extensive left renal vascular calcifications. There are multiple left renal cysts measuring up to 4 cm in diameter. There is a dominant lower pole right renal cyst measuring 34 mm. There is no hydronephrosis. There are multiple phleboliths. Bowel: There are no transition zones to indicate bowel obstruction. The appendix appears normal. There is no acute diverticulitis. There is a mildly distended fluid-filled colon. Correlate with any history of diarrhea. Peritoneum: There is no intraperitoneal free air or abdominal ascites. Vasculature: The abdominal aorta is normal in course and caliber. Adenopathy: None. Pelvic viscera: The uterus appears surgically absent. Skeletal structures: There is a grade 1 spondylolisthesis of L4 and L5. There is an old superior endplate T12 compression fracture. IMPRESSION: 1. No evidence of bowel obstruction. No evidence of free air 2. No evidence of acute appendicitis. No evidence of acute diverticulitis. 3. Fluid-filled colon. This can be seen in diarrheal states. Clinical correlation is advocated. Head CT no acute IC abnormality CXR no acute CP pathology (1) Acute renal failure Acute renal failure type: unspecified Qualified Code(s): N17.9 - Acute kidney failure, unspecified
[2019-06-09] MEDS: SODIUM BICARBONATE 8.4% 150 MEQ, POTASSIUM CHLORIDE 40 MEQ in DEXTROSE 5% 1,000 ML IV SCH (17:53)
[2019-06-09 19:45] LABS: BUN Creatinine Ratio 19.5 (10-20); Calcium 7.4 mg/dl (8.5-10.1); Creatinine Clr Calc Pharmacy 7.6 ml/min; Est GFR (African American) 9.3; Potassium 3.6 mmol/L (3.5-5.1)
[2019-06-09 19:59] LABS: Beta-Hydroxybutyrate 1.29 mg/dl (0.2-2.81)
[2019-06-09] MEDS: INSULIN GLARGINE SOLOSTAR 100 UNITS/ML 3 ML PEN SQ SCH (20:19)
[2019-06-10] MEDS: SODIUM BICARBONATE 8.4% 150 MEQ, POTASSIUM CHLORIDE 40 MEQ in DEXTROSE 5% 1,000 ML IV SCH (05:32)
[2019-06-10] MEDS: LEVOTHYROXINE SODIUM 112 MCG TABLET PO SCH (05:53)
[2019-06-10] MEDS ORDERED: COSYNTROPIN 250 MCG in SYRINGE 4 ML IV SCH (08:00)
[2019-06-10 08:02] LABS: Hematocrit (blood only) 25.1 % (37-47); Hemoglobin 8.7 g/dL (12.0-16.0); Mean Corpuscular Hemoglobin 29.6 pg (25-34); Mean Corpuscular Hgb Conc 34.7 g/dL (32-36); Mean Corpuscular Volume 85.4 fL (80-100); Mean Platelet Volume 10.6 fL (7.4-10.4); Platelet Count 250 K/uL (130-400); RDW Coefficient of Variation 13.4 % (11.5-14.5); RDW Standard Deviation 41.2 fL (36.4-46.3); Red Blood Count 2.94 M/uL (4.2-5.4)
[2019-06-10] MEDS: PANTOprazole 40 MG TAB PO SCH (08:17)
[2019-06-10 08:24] LABS: BUN Creatinine Ratio 25.2 (10-20); Calcium 8.2 mg/dl (8.5-10.1); Creatinine Clr Calc Pharmacy 11.1 ml/min; Est GFR (African American) 13.8; Est GFR (Non-African American) 11.9; Magnesium 1.7 mg/dl (1.8-2.4); Potassium 4.7 mmol/L (3.5-5.1)
[2019-06-10] MEDS: INSULIN ASPART 100 UNITS/ML 3 ML PEN SC SCH ×4 (09:43→20:21)
[2019-06-10] MEDS: SODIUM CHLORIDE 0.45 % 1,000 ML IV SCH ×2 (11:13→19:06)
--- NOTE | 2019-06-10 12:51 | Hospitalist Progress Note ---
Date of Service June 10, 2019 Assessment & Plan (1) Acute renal failure superimposed on stage 4 chronic kidney disease: Likely prerenal due to nausea/vomiting, laxative use and due to meds (Lasix, ARB) -CT ABD: Extensive left renal vascular calcifications and multiple left renal cysts. No hydronephrosis. Multiple phleboliths.No evidence of bowel obstruction. No evidence of free air. No evidence of acute appendicitis. No evidence of acute diverticulitis. Fluid-filled colon. This can be seen in diarrheal states. Creatinine on admission was 6.51 [last was 2.31 in April 2019] Creatinine improving. Currently 3.43 this morning. Continue to hold Lasix, ARB's Discussed with Dr. Velásquez vp transportation and stopped bicarb drip. Continue half saline IV fluids Continue to monitor creatinine. (2) High anion gap metabolic acidosis: Lactate was normal, no history of alcohol use, but the hydroxybutyrate was normal Multiple electrolyte abnormalities Bicarb was 13 on admission. Started on bicarb drip yesterday. Metabolic acidosis has completely resolved this morning. Discontinued bicarb drip We will continue to monitor (3) Hyponatremia: (4) Hypomagnesemia: (5) Hypokalemia: (6) Hypocalcemia: Multiple electrolyte abnormalities Likely secondary to poor p.o. intake, Lasix, laxative Sodium has been improving. 135 this morning from 130 yesterday morning. Hypokalemia has resolved with repletion yesterday. Hypercalcemia improved. Corrected calcium today is 8.7. We will continue to monitor Hypomagnesemia 1.7 today. Replete and monitor (7) UTI (urinary tract infection): UA showed leuk esterase and bacteria Urine culture growing E.coli Iv ceftriaxone Follow up sensitivities (8) Hypothyroidism: Low TSH and low free T4 DD: Secondary Hypothyroidism Vs euthyroid sick syndrome Vs secondary to Seroquel H/O acquired hypothyroidism CT head: No acute intracranial abnormality Continue levothyroxine Will need repeat TSH, free T4 levels checked Will follow up Cortisol sim test ordered (9) Prolonged QT interval: QTC was 588 on admission Likely due to multiple electrolyte abnormalities and Seroquel QTc today is 449 Continue to monitor electrolyte abnormalities and manage appropriately as noted above We will resume Seroquel dose and monitor QTC (10) Bipolar 1 disorder: Patient stated that her bipolar 1 is well controlled on the Seroquel She insisted that she wants to continue the Seroquel and follow-up with the PCP outpatient We will resume Seroquel now the QTC is normalized and electrolyte abnormalities are being controlled Monitor QTC (11) Constipation: Chronic constipation Last bowel movement was 2 days ago Linzess currently on hold due to acute on chronic renal failure Dulcolax [place] and monitor Will need follow up outpatient with GI and PCP (12) DM2 (diabetes mellitus, type 2): A1c 8.5 Continue lantus and ISS Monitor Blood glucose now patient is tolerating po better (13) Abnormal EKG: T wave inversions in lateral leads Likely due to hypokalemia and other electrolyte abnormalities ECHO: No segmental left ventricular wall motion abnormalities. EF 65 to 70% Troponin negative Patient denies any chest pain (14) DVT prophylaxis: Hep sq (15) Discharge planning issues: PT eval Subjective 79-year-old woman with history of DM type II, CKD 4, hyperlipidemia, hypothyroidism, hypertension, chronic constipation, GERD, bipolar, history of breast cancer, cardiac pacemaker who presented with lethargy, nausea and anorexia. Found to have hypotension, YEVGENIY on CKD, hyponatremia, anion gap metabolic acidosis, Hypokalemia hypocalcemia. This morning, patient reports feeling better Reported better appetite this morning. Nausea vomiting has resolved. Denied any abdominal pain. Last bowel movement was on the date of admission. Denied any depression anxiety. Stated that her bipolar is well controlled. Denied any chest pain, shortness of breath, cough, palpitations Denied any dizziness, headache Reports generalized weakness. Stated she feels better today Review of Systems Review of Systems: All systems reviewed and unremarkable except for mentioned above. Physical Exam Physical Exam: General: Elderly woman in no acute distress Eyes: PERRL, conjunctivae normal, mild pallor, anicteric sclerae, EOM intact bilaterally ENMT: External ear and nose normal, oropharynx normal Neck: Normal visual inspection, no tracheal deviation, no swelling noted Respiratory: Normal respiratory effort, no respiratory distress, lungs clear to auscultation, no crackles and no wheezes Cardiovascular: Pulse is RRR. S1 S2, no edema Chest (Breasts): Chest: normal inspection of chest Gastrointestinal (Abdomen): Abdomen is not distended, soft, non-tender to palpation, no guarding, no palpable hepatosplenomegaly, normal bowel sounds Musculoskeletal: No cyanosis or clubbing Genitourinary: No CVA tenderness Skin: No rash noted on gross inspection, No ulcers noted Neurologic: Alert and oriented x 3, No focal weakness, sensation grossly intact Psychiatric: Alert and oriented x 3, euthymic affect Results & Data Vital Signs (Past 12 Hours) Vital Signs Temp Pulse Pulse Resp BP Pulse Ox 06/10/19 11:23 37.6 C H 83 21 137/69 96 06/10/19 07:31 36.9 C 79 17 154/71 H 99 06/10/19 07:23 80 06/10/19 03:30 37.7 C H 84 18 136/76 98 Laboratory Results Abnormal lab results 06/08/19 06/09/19 06/09/19 Range/Units 13:20 13:14 13:20 RBC (4.2-5.4) M/uL Hgb (12.0-16.0) g/dL Hct (37-47) % MPV (7.4-10.4) fL Sodium 128 L (136-145) mmol/L Potassium 3.1 L D (3.5-5.1) mmol/L Chloride 97 L (98-107) mmol/L Carbon Dioxide 15 L (21-32) mmol/L Anion Gap 16.0 H (3-11) BUN 99 H (7-18) mg/dl Creatinine 5.16 H* (0.6-1.2) mg/dl BUN/Creatinine Ratio (10-20) Glucose 294 H (70-99) mg/dl POC Glucose (70-99) Calcium 7.3 L (8.5-10.1) mg/dl Magnesium (1.8-2.4) mg/dl Urine Appearance Cloudy A (Clear) Urine Protein 1+ H (Negative) Urine Blood 1+ H (Negative) Ur Leukocyte Esterase 2+ H (Negative) Urine WBC (Auto) >30 H (0-5) /hpf Urine Bacteria (Auto) 2+ H (Negative) Urine Osmolality 266 L (500-800) mOsm/kg 06/09/19 06/09/19 06/09/19 Range/Units 15:50 18:52 22:35 RBC (4.2-5.4) M/uL Hgb (12.0-16.0) g/dL Hct (37-47) % MPV (7.4-10.4) fL Sodium 128 L (136-145) mmol/L Potassium (3.5-5.1) mmol/L Chloride 96 L (98-107) mmol/L Carbon Dioxide 19 L (21-32) mmol/L Anion Gap 13.0 H (3-11) BUN 93 H (7-18) mg/dl Creatinine 4.76 H* D (0.6-1.2) mg/dl BUN/Creatinine Ratio (10-20) Glucose 323 H* (70-99) mg/dl POC Glucose 266 H 205 H (70-99) Calcium 7.4 L (8.5-10.1) mg/dl Magnesium (1.8-2.4) mg/dl Urine Appearance (Clear) Urine Protein (Negative) Urine Blood (Negative) Ur Leukocyte Esterase (Negative) Urine WBC (Auto) (0-5) /hpf Urine Bacteria (Auto) (Negative) Urine Osmolality (500-800) mOsm/kg 06/10/19 06/10/19 06/10/19 Range/Units 00:10 03:48 06:44 RBC (4.2-5.4) M/uL Hgb (12.0-16.0) g/dL Hct (37-47) % MPV (7.4-10.4) fL Sodium (136-145) mmol/L Potassium (3.5-5.1) mmol/L Chloride (98-107) mmol/L Carbon Dioxide (21-32) mmol/L Anion Gap (3-11) BUN (7-18) mg/dl Creatinine (0.6-1.2) mg/dl BUN/Creatinine Ratio (10-20) Glucose (70-99) mg/dl POC Glucose 148 H 137 H 171 H (70-99) Calcium (8.5-10.1) mg/dl Magnesium (1.8-2.4) mg/dl Urine Appearance (Clear) Urine Protein (Negative) Urine Blood (Negative) Ur Leukocyte Esterase (Negative) Urine WBC (Auto) (0-5) /hpf Urine Bacteria (Auto) (Negative) Urine Osmolality (500-800) mOsm/kg 06/10/19 06/10/19 06/10/19 Range/Units 07:47 07:47 11:25 RBC 2.94 L (4.2-5.4) M/uL Hgb 8.7 L (12.0-16.0) g/dL Hct 25.1 L (37-47) % MPV 10.6 H (7.4-10.4) fL Sodium 135 L D (136-145) mmol/L Potassium (3.5-5.1) mmol/L Chloride (98-107) mmol/L Carbon Dioxide (21-32) mmol/L Anion Gap (3-11) BUN 86 H (7-18) mg/dl Creatinine 3.43 H D (0.6-1.2) mg/dl BUN/Creatinine Ratio 25.2 H (10-20) Glucose 172 H (70-99) mg/dl POC Glucose 262 H (70-99) Calcium 8.2 L (8.5-10.1) mg/dl Magnesium 1.7 L (1.8-2.4) mg/dl Urine Appearance (Clear) Urine Protein (Negative) Urine Blood (Negative) Ur Leukocyte Esterase (Negative) Urine WBC (Auto) (0-5) /hpf Urine Bacteria (Auto) (Negative) Urine Osmolality (500-800) mOsm/kg Urine culture - E.coli
[2019-06-10] MEDS ORDERED: bisacodyL 10 MG SUPP PR PRN (13:15)
[2019-06-10] MEDS ORDERED: QUETIAPINE FUMARATE 300 MG TABCR PO SCH (13:15)
[2019-06-10] MEDS: cefTRIAXone SODIUM 1,000 MG in DEXTROSE 5% 50 ML IV SCH (13:27)
[2019-06-10] MEDS ORDERED: MAGNESIUM SULFATE / D5W 1 GM/100 ML BAG IV ONE (13:30)
[2019-06-10] MEDS: HEPARIN SOD 5,000 UNIT/0.5 ML VIAL SQ SCH ×2 (14:08→20:20)
[2019-06-10] MEDS: QUETIAPINE FUMARATE 200 MG TABCR PO SCH (14:09)
[2019-06-10] MEDS: QUETIAPINE FUMARATE 50 MG TABCR PO SCH (14:10)
--- NOTE | 2019-06-10 16:33 | Nephrology Progress Note ---
Date of Service June 10, 2019 Assessment & Plan (1) Acute renal failure: improving dramatically. no indication for urgent dialysis. prerenal versus ischemic ATN > so far most like prerenal; admission ua most c/w possible E coli UTI though she has no voiding sx. -daily bmp -cont IVF to 1/2 NS no additiives at 125 ml/hr -recheck bmp 1800 > may need to adjust IVF again -f/u urine cx> E coli -bp improved now -care coordinated w/ Dr. Castillo (2) Hypokalemia: resolved; changed IVF as below (3) Hyponatremia: resolved; changed IVF as below (4) High anion gap metabolic acidosis: resolved; changed IVF as below -next bmp in am (5) CKD (chronic kidney disease) stage 4, GFR 15-29 ml/min: labile creat at baseline which is 2-low 2's; nephrotic range proteinuria; follows most recently w/ Dr Polo in CKD clinic Subjective eating better; no N/V; no sob; feeling less anxious/depressed though still some of this; no edema; denies voiding concerns Review of Systems Review of Systems: All systems reviewed & are unremarkable except as noted in HPI & below Physical Exam Constitutional: well developed, + thin and cooperative; no acute distress Eyes: EOM intact bilaterally; no EOM movement deficit ENMT: Ears: no external ear abnormality Nose: no external nose abnormality Mouth: + dry oral mucous membranes Neck: no nuchal rigidity Respiratory: normal respiratory effort Auscultation: lungs clear to auscultation bilaterally (though decreased throughout) and + diminished lung sounds Cardiovascular: RRR, no murmur, no edema Gastrointestinal (Abdomen): Inspection/Auscultation: normal bowel sounds; abdomen not distended Percussion/Palpation: abdomen soft; abdomen nontender, no guarding and abdomen not rigid Musculoskeletal: Extremities: strength 5/5 throughout Skin: no rashes, warm and dry Neurologic: kenyon, fluent speech, no tremor Psychiatric: Orientation: alert and oriented x 3 Speech: + pressured speech Affect: + anxious affect Genitourinary: de [place] w/ ample eyllow urine Results & Data Vital Signs (Past 12 Hours) Vital Signs Temp Pulse Pulse Resp BP Pulse Ox 06/10/19 16:00 87 06/10/19 15:30 36.7 C 85 16 132/77 95 06/10/19 11:23 37.6 C H 83 21 137/69 96 06/10/19 07:31 36.9 C 79 17 154/71 H 99 06/10/19 07:23 80 Laboratory Results 06/10/19 07:47 06/10/19 07:47 (1) Acute renal failure Acute renal failure type: unspecified Qualified Code(s): N17.9 - Acute kidney failure, unspecified
[2019-06-10 18:40] LABS: BUN Creatinine Ratio 27.5 (10-20); Creatinine Clr Calc Pharmacy 12.8 ml/min; Est GFR (African American) 16.4; Est GFR (Non-African American) 14.2
[2019-06-10] MEDS: INSULIN GLARGINE SOLOSTAR 100 UNITS/ML 3 ML PEN SQ SCH (20:22)
[2019-06-11] MEDS: SODIUM CHLORIDE 0.45 % 1,000 ML IV SCH ×3 (03:03→18:34)
[2019-06-11] MEDS: HEPARIN SOD 5,000 UNIT/0.5 ML VIAL SQ SCH ×3 (06:01→20:47)
[2019-06-11] MEDS: LEVOTHYROXINE SODIUM 112 MCG TABLET PO SCH (06:01)
[2019-06-11 06:06] LABS: Hematocrit (blood only) 23.6 % (37-47); Mean Corpuscular Hemoglobin 29.7 pg (25-34); Mean Corpuscular Hgb Conc 33.9 g/dL (32-36); Mean Corpuscular Volume 87.7 fL (80-100); Mean Platelet Volume 10.9 fL (7.4-10.4); Platelet Count 215 K/uL (130-400); RDW Coefficient of Variation 13.6 % (11.5-14.5); RDW Standard Deviation 43.8 fL (36.4-46.3); Red Blood Count 2.69 M/uL (4.2-5.4)
[2019-06-11 06:19] LABS: Albumin Level 2.2 gm/dl (3.4-5.0); BUN Creatinine Ratio 30.5 (10-20); Calcium 8.3 mg/dl (8.5-10.1); Creatinine Clr Calc Pharmacy 15.9 ml/min; Est GFR (African American) 21.4; Est GFR (Non-African American) 18.5; Magnesium 1.7 mg/dl (1.8-2.4); Potassium 4.5 mmol/L (3.5-5.1)
[2019-06-11 06:21] LABS: Albumin Globulin Ratio 0.6 (0.9-2); Bilirubin,Total 0.2 mg/dl (0.2-1); Globulin 3.6 gm/dl (2.5-4.0); Total Protein 5.8 gm/dl (6.4-8.2)
[2019-06-11] MEDS ORDERED: MAGNESIUM SULFATE / D5W 1 GM/100 ML BAG IV ONE (08:15)
[2019-06-11] MEDS: QUETIAPINE FUMARATE 200 MG TABCR PO SCH (08:19)
[2019-06-11] MEDS: PANTOprazole 40 MG TAB PO SCH (08:19)
[2019-06-11] MEDS: QUETIAPINE FUMARATE 50 MG TABCR PO SCH (08:20)
[2019-06-11] MEDS: INSULIN ASPART 100 UNITS/ML 3 ML PEN SC SCH ×4 (08:21→20:49)
--- NOTE | 2019-06-11 09:05 | Nephrology Progress Note ---
Date of Service June 11, 2019 Assessment & Plan (1) Acute renal failure: improving dramatically. no indication for urgent dialysis. prerenal versus ischemic ATN > so far most like prerenal; admission ua most c/w possible E coli UTI though she has no voiding sx. -daily bmp -cont IVF >> 1/2 NS no additives at 125 ml/hr -f/u urine cx> E coli -bp improved now (2) CKD (chronic kidney disease) stage 4, GFR 15-29 ml/min: labile creat at baseline which is 2-low 2's; nephrotic range proteinuria; high esrd risk; she is approaching prior baseline w/ creat >>>pls schedule f/u appt 2-4 wks after d/c w/ Dr Polo or PA in CKD clinic >>pls have [facility] d/c senior materials planner order under my name bmp weekly x 2 after d/c >>>pls have [facility] d/c senior materials planner send me and my nurse Renetta Encinas ([id number]) a staff message in [employer] at d/c so we can refer her to anemia clinic after d/c (3) Hypertension: -resume amlodipine 7.5 mg daily (OP dose) -cont to hold daily lasix and daily 160 mg valsartan until hospital f/u w/ PCP/CKD clinic OR until [facility] at [facility] Present on Admission?: Yes (4) Anemia of chronic disease: monitoring; no need for transfusion but hgb is dropping as we have rehydrated her -see above re anemia clinic referral at d/c by nephro -will check t stn for am; reluctant to rx venofer w/ iv abtx still being given but will consider based on lab trends, pt status Present on Admission?: Yes Subjective seen on rounds this am 0950; feelign better; eating/drinking, no sob, no voiding concerns; no abd pain Review of Systems Review of Systems: All systems reviewed & are unremarkable except as noted in HPI & below Physical Exam Constitutional: well developed, + thin and cooperative; no acute distress (lying flat in bed on RA) Eyes: EOM intact bilaterally; no EOM movement deficit ENMT: Ears: no external ear abnormality Nose: no external nose abnormality Mouth: + dry oral mucous membranes Neck: no nuchal rigidity Respiratory: normal respiratory effort Auscultation: lungs clear to auscultation bilaterally (though decreased throughout) and + diminished lung sounds Cardiovascular: RRR, no murmur, no edema Gastrointestinal (Abdomen): Inspection/Auscultation: normal bowel sounds; abdomen not distended Percussion/Palpation: abdomen soft; abdomen nontender, no guarding and abdomen not rigid Musculoskeletal: Extremities: strength 5/5 throughout Skin: no rashes, warm and dry Neurologic: fluent speech, kenyon, no tremor Psychiatric: Orientation: alert and oriented x 3 Speech: + pressured speech Affect: + anxious affect Results & Data Vital Signs (Past 12 Hours) Vital Signs Temp Pulse Resp BP Pulse Ox 06/11/19 07:26 36.3 C L 70 18 156/76 H 97 06/11/19 04:40 37.0 C 65 17 134/60 96 06/11/19 00:34 37.1 C 69 17 135/68 96 Laboratory Results 06/11/19 05:43 06/11/19 05:43 (1) Acute renal failure Acute renal failure type: unspecified Qualified Code(s): N17.9 - Acute kidney failure, unspecified (2) Hypertension Hypertension type: essential hypertension Qualified Code(s): I10 - Essential (primary) hypertension
[2019-06-11] MEDS ORDERED: AMLODIPINE BESYLATE 5 MG TAB PO SCH (09:45)
[2019-06-11] MEDS ORDERED: INSULIN ASPART PER UNIT 5 UNITS in SYRINGE 0 ML SC STA (11:23)
--- NOTE | 2019-06-11 11:28 | Hospitalist Progress Note ---
Date of Service June 11, 2019 Assessment & Plan (1) Acute renal failure superimposed on stage 4 chronic kidney disease: Likely prerenal due to nausea/vomiting, laxative use and due to meds (Lasix, ARB) -CT ABD: Extensive left renal vascular calcifications and multiple left renal cysts. No hydronephrosis. Multiple phleboliths.No evidence of bowel obstruction. No evidence of free air. No evidence of acute appendicitis. No evidence of acute diverticulitis. Fluid-filled colon. This can be seen in diarrheal states. Creatinine on admission was 6.51 [last was 2.31 in April 2019] Creatinine improving. Currently 2.38 this morning. Will continue to hold Lasix, ARB's until outpatient follow up with PCP/Nephrology On IV 0.45% saline Nephrology recommendations noted (2) High anion gap metabolic acidosis: Lactate was normal, no history of alcohol use, but the hydroxybutyrate was normal Multiple electrolyte abnormalities Bicarb was 13 on admission. Bicarb drip discontinued yesterday as metabolic acidosis has resolved Currently on half saline IV (3) Hyponatremia: (4) Hypomagnesemia: (5) Hypokalemia: (6) Hypocalcemia: Multiple electrolyte abnormalities Likely secondary to poor p.o. intake, Lasix, laxative Hyponatremia, hypokalemia resolved Hypocalcemia resolved. Corrected calcium today is 9.7. Hypomagnesemia 1.7 today. Replete and monitor (7) UTI (urinary tract infection): UA showed leuk esterase and bacteria Urine culture growing E.coli Sensitivities noted. Change to p.o. Keflex to complete therapy (8) Hypothyroidism: Low TSH and low free T4 DD: Secondary Hypothyroidism Vs euthyroid sick syndrome Vs secondary to Seroquel H/O acquired hypothyroidism CT head: No acute intracranial abnormality Continue levothyroxine Will need repeat TSH, free T4 levels checked (9) Prolonged QT interval: QTC was 588 on admission Likely due to multiple electrolyte abnormalities and Seroquel QTc today is 413 Continue to monitor electrolyte abnormalities and manage appropriately as noted above Resumed Seroquel dose and monitor QTC (10) Bipolar 1 disorder: Stable Seroquel resumed (11) Constipation: Chronic constipation Last bowel movement was 2 days ago Linzess currently on hold due to acute on chronic renal failure Dulcolax CT and monitor Will need follow up outpatient with GI and PCP (12) DM2 (diabetes mellitus, type 2): A1c 8.5 Continue lantus and ISS Optimizing glycemic control now that patient is tolerating po diet better (13) Abnormal EKG: T wave inversions in lateral leads Likely due to hypokalemia and other electrolyte abnormalities ECHO: No segmental left ventricular wall motion abnormalities. EF 65 to 70% Troponin negative Patient denies any chest pain (14) DVT prophylaxis: Hep sq (15) Discharge planning issues: PT eval - Recommend rehab Subjective Patient reports feeling much better today Had a large bowel movement yesterday. Reports anorexia is resolved. Ate all breakfast today. Denied any abdominal pain, nausea, vomiting Denied any chest pain, shortness of breath, cough Review of Systems Review of Systems: All systems reviewed and unremarkable except for mentioned above. Physical Exam Physical Exam: General: Elderly woman in no acute distress Eyes: PERRL, conjunctivae normal, EOM intact bilaterally ENMT: External ear and nose normal, oropharynx normal Neck: Normal visual inspection, no tracheal deviation, no swelling noted Respiratory: Normal respiratory effort, no respiratory distress, lungs clear to auscultation, no crackles and no wheezes Cardiovascular: Pulse is RRR. S1 S2, no edema Gastrointestinal (Abdomen): Abdomen is not distended, soft, non-tender to palpation, no guarding, no palpable hepatosplenomegaly, normal bowel sounds Genitourinary: No CVA tenderness Skin: No rash noted on gross inspection, No ulcers noted Neurologic: Alert and oriented x 3, Generalized weakness, No focal weakness, sensation grossly intact Results & Data Vital Signs (Past 12 Hours) Vital Signs Temp Pulse Resp BP Pulse Ox 06/11/19 07:26 36.3 C L 70 18 156/76 H 97 06/11/19 04:40 37.0 C 65 17 134/60 96 06/11/19 00:34 37.1 C 69 17 135/68 96 Laboratory Results Abnormal lab results 06/10/19 06/10/19 06/10/19 Range/Units 16:16 18:08 20:17 RBC (4.2-5.4) M/uL Hgb (12.0-16.0) g/dL Hct (37-47) % MPV (7.4-10.4) fL Sodium 135 L (136-145) mmol/L BUN 82 H (7-18) mg/dl Creatinine 2.97 H D (0.6-1.2) mg/dl BUN/Creatinine Ratio 27.5 H (10-20) Glucose 241 H (70-99) mg/dl POC Glucose 141 H 219 H (70-99) Calcium 8.0 L (8.5-10.1) mg/dl Magnesium (1.8-2.4) mg/dl AST (15-37) U/L ALT (12-78) U/L Alkaline Phosphatase (45-117) U/L Total Protein (6.4-8.2) gm/dl Albumin (3.4-5.0) gm/dl Albumin/Globulin Ratio (0.9-2) 06/11/19 06/11/19 06/11/19 Range/Units 05:43 05:43 11:14 RBC 2.69 L (4.2-5.4) M/uL Hgb 8.0 L (12.0-16.0) g/dL Hct 23.6 L (37-47) % MPV 10.9 H (7.4-10.4) fL Sodium (136-145) mmol/L BUN 73 H (7-18) mg/dl Creatinine 2.38 H D (0.6-1.2) mg/dl BUN/Creatinine Ratio 30.5 H (10-20) Glucose (70-99) mg/dl POC Glucose 305 H* (70-99) Calcium 8.3 L (8.5-10.1) mg/dl Magnesium 1.7 L (1.8-2.4) mg/dl AST 11 L (15-37) U/L ALT 10 L (12-78) U/L Alkaline Phosphatase 151 H (45-117) U/L Total Protein 5.8 L (6.4-8.2) gm/dl Albumin 2.2 L (3.4-5.0) gm/dl Albumin/Globulin Ratio 0.6 L (0.9-2) 06/11/19 Range/Units 11:14 RBC (4.2-5.4) M/uL Hgb (12.0-16.0) g/dL Hct (37-47) % MPV (7.4-10.4) fL Sodium (136-145) mmol/L BUN (7-18) mg/dl Creatinine (0.6-1.2) mg/dl BUN/Creatinine Ratio (10-20) Glucose (70-99) mg/dl POC Glucose 313 H* (70-99) Calcium (8.5-10.1) mg/dl Magnesium (1.8-2.4) mg/dl AST (15-37) U/L ALT (12-78) U/L Alkaline Phosphatase (45-117) U/L Total Protein (6.4-8.2) gm/dl Albumin (3.4-5.0) gm/dl Albumin/Globulin Ratio (0.9-2)
[2019-06-11] MEDS ORDERED: INSULIN ASPART 100 UNITS/ML 3 ML PEN SC ONE (11:30)
[2019-06-11] MEDS: cefTRIAXone SODIUM 1,000 MG in DEXTROSE 5% 50 ML IV SCH (12:25)
[2019-06-11] MEDS ORDERED: bisacodyL 5 MG TABEC PO PRN (18:46)
[2019-06-11] MEDS: cephALEXin 250 MG CAP PO SCH (20:46)
[2019-06-11] MEDS: INSULIN GLARGINE SOLOSTAR 100 UNITS/ML 3 ML PEN SQ SCH (20:48)
[2019-06-12] MEDS ORDERED: SIMETHICONE 80 MG CHEW PO PRN (01:23)
[2019-06-12] MEDS: SODIUM CHLORIDE 0.45 % 1,000 ML IV SCH (02:18)
[2019-06-12] MEDS: HEPARIN SOD 5,000 UNIT/0.5 ML VIAL SQ SCH (05:56)
[2019-06-12] MEDS: LEVOTHYROXINE SODIUM 112 MCG TABLET PO SCH (05:56)
[2019-06-12 07:59] LABS: Hematocrit (blood only) 25.2 % (37-47); Hemoglobin 8.4 g/dL (12.0-16.0); Mean Corpuscular Hemoglobin 29.3 pg (25-34); Mean Corpuscular Hgb Conc 33.3 g/dL (32-36); Mean Corpuscular Volume 87.8 fL (80-100); Mean Platelet Volume 10.3 fL (7.4-10.4); Platelet Count 196 K/uL (130-400); RDW Coefficient of Variation 13.6 % (11.5-14.5); RDW Standard Deviation 43.6 fL (36.4-46.3); Red Blood Count 2.87 M/uL (4.2-5.4); White Blood Count 8.33 K/uL (4.8-10.8)
[2019-06-12 08:27] LABS: Albumin Level 2.2 gm/dl (3.4-5.0); BUN Creatinine Ratio 27.1 (10-20); Calcium 9.3 mg/dl (8.5-10.1); Creatinine Clr Calc Pharmacy 17.2 ml/min; Est GFR (African American) 23.5; Est GFR (Non-African American) 20.2; Potassium 4.8 mmol/L (3.5-5.1)
[2019-06-12 08:30] LABS: Albumin Globulin Ratio 0.6 (0.9-2); Bilirubin,Total 0.2 mg/dl (0.2-1); Globulin 3.8 gm/dl (2.5-4.0)
[2019-06-12] MEDS: PANTOprazole 40 MG TAB PO SCH (08:42)
[2019-06-12] MEDS: cephALEXin 250 MG CAP PO SCH (08:42)
[2019-06-12] MEDS: QUETIAPINE FUMARATE 50 MG TABCR PO SCH (08:42)
[2019-06-12] MEDS: INSULIN ASPART 100 UNITS/ML 3 ML PEN SC SCH ×2 (08:43→12:29)
[2019-06-12] MEDS: QUETIAPINE FUMARATE 200 MG TABCR PO SCH (08:43)
[2019-06-12] MEDS ORDERED: AMLODIPINE BESYLATE 5 MG TAB PO SCH (09:00)
--- NOTE | 2019-06-12 13:27 | Discharge Summary ---
Date of Service June 12, 2019 Admission HPI Per Admitting Provider 79-year-old female with past medical history significant for type 2 diabetes, chronic kidney disease stage IV, hyperlipidemia, hypothyroidism, hypertension, chronic constipation, GERD, bipolar disorder, history of breast cancer, history of cardiac pacemaker, does not know why she has a pacemaker, lives at home with her . has dementia. The patient says she has caregivers, who comes 3 times a week .Says she has chronic constipation, and since her teenager she has seen multiple specialists for it and she says only [employer] works for her and she gets abdominal cramps with it and she recently saw in GI and started on Linzess and advised for colonoscopy which she declined. The patient also has a history of subdural hematoma after a fall, used to be on Keppra, currently she seems to be not on Keppra, presents with lethargy. The patient says since last 3-4 days, she is feeling very weak, sore all over the body, does not want to get up from the bed. Whatever she was eating, she was vomiting and she felt that she is going to and finally called her caregivers today and was brought in here. She says she is using stool softener. She moved her bowels once a day but not much because she was not eating anything. In the ER when she came in, she was hypotensive with systolic blood pressure in the 70s. With the fluids, blood pressure came up. Her labs were abnormal with sodium of 125, potassium 2.6, creatinine of 6.5, recent creatinine was 2.4 and both TSH and free T4 were low. Currently resting comfortably and alert and oriented. Denies any headache. Denies any blurred visions, no earache, no runny nose, no sore throat, no difficulty swallowing. No cough, no fever, no chills, no chest pain, no shortness of breath. She was having abdominal pain when she came in, but now it got resolved. Denies any blood in stools or black stools. She says she is micturating, but not much because she is not eating or drinking. Denies any hematuria or burning micturition. No rash. She is not ambulating in the last few days because of weakness and soreness. Admission Exam Per Admitting Provider GENERAL: The patient is old and frail, not in acute distress. VITAL SIGNS: Temperature 36.6, pulse 81, respiratory rate 13, blood pressure 96/44, oxygen 98% on room air. HEENT: No pallor, no icterus. Pupils equal, round, and reactive to light. NECK: No JVD, no neck masses, no carotid bruits. CARDIOVASCULAR: S1, S2 heard, regular rate and rhythm, no murmur, no gallop. RESPIRATORY SYSTEM: Normal AP diameter. No accessory muscle use. No wheezing, no crackles. ABDOMEN: Soft, bowel sounds present, nontender. No distention. CENTRAL NERVOUS SYSTEM: Alert and oriented. Obeys simple commands. Moves extremities. EXTREMITIES: No edema, no erythema. Principal Diagnosis Acute on chronic kidney disease stage IV Multiple electrolyte abnormalities [hyponatremia, hypokalemia, hypomagnesemia] High anion gap metabolic acidosis Urinary tract infection Chronic constipation Discharge Exam General: Elderly woman in no acute distress Eyes: PERRL, conjunctivae normal, EOM intact bilaterally ENMT: External ear and nose normal, oropharynx normal Neck: Normal visual inspection, no tracheal deviation, no swelling noted Respiratory: Normal respiratory effort, no respiratory distress, lungs clear to auscultation, no crackles and no wheezes Cardiovascular: Pulse is RRR. S1 S2, no edema Gastrointestinal (Abdomen): Abdomen is not distended, soft, non-tender to palpation, no guarding, no palpable hepatosplenomegaly, normal bowel sounds Genitourinary: No CVA tenderness Skin: No rash noted on gross inspection, No ulcers noted Neurologic: Alert and oriented x 3, Generalized weakness, No focal weakness, sensation grossly intact Discharge Data Allergies Allergy/AdvReac Type Severity Reaction Status Date / Time Iodinated Contrast Media Allergy Severe Anaphylaxis Verified 05/07/19 15:11 mold Allergy Unknown UNKNOWN Verified 05/07/19 15:11 pollen extracts Allergy Unknown UNKNOWN Verified 05/07/19 15:11 Dust Allergy Unknown UNKNOWN Uncoded 05/07/19 15:11 Fungi Allergy Unknown UNKNOWN Uncoded 05/07/19 15:11 Consultations 06/09/19 00:49 Consult Case Management - Discharge Planning Routine 06/09/19 08:00 Consult Nephrology Routine Ordered Studies 06/08/19 19:18 CT abd pelvis wo con Stat 1. No evidence of bowel obstruction. No evidence of free air 2. No evidence of acute appendicitis. No evidence of acute diverticulitis. 3. Fluid-filled colon. This can be seen in diarrheal states. Clinical correlation is advocated. 06/08/19 23:04 CT head/brain wo con Urgent No acute intracranial abnormality. Age-related atrophy and chronic small vessel change. Hospital Course (1) Acute renal failure superimposed on stage 4 chronic kidney disease: Likely prerenal due to nausea/vomiting, laxative use and due to meds (Lasix, ARB) -CT ABD: Extensive left renal vascular calcifications and multiple left renal cysts. No hydronephrosis. Multiple phleboliths.No evidence of bowel obstruction. No evidence of free air. No evidence of acute appendicitis. No evidence of acute diverticulitis. Creatinine on admission was 6.51 [last was 2.31 in April 2019] Creatinine back to baseline Currently 2.21 this morning. Will continue to hold Lasix until outpatient follow up with Nephrology [facility] with the mortgage processor. (2) High anion gap metabolic acidosis: Lactate was normal, no history of alcohol use, but the hydroxybutyrate was normal Multiple electrolyte abnormalities Bicarb was 13 on admission. Required bicarb drip briefly until metabolic acidosis has resolved (3) Hyponatremia: (4) Hypomagnesemia: (5) Hypokalemia: (6) Hypocalcemia: Multiple electrolyte abnormalities Likely secondary to poor p.o. intake, Lasix, laxative Hyponatremia, hypokalemia resolved Hypocalcemia resolved. Hypomagnesemia 1.7 today. Repleted (7) UTI (urinary tract infection): UA showed leuk esterase and bacteria Urine culture growing E.coli Sensitivities noted. Changed to p.o. Keflex to complete therapy (8) Hypothyroidism: Low TSH and low free T4 DD: Secondary Hypothyroidism Vs euthyroid sick syndrome Vs secondary to Seroquel H/O acquired hypothyroidism CT head: No acute intracranial abnormality Continue levothyroxine Will need repeat TSH, free T4 levels checked (9) Prolonged QT interval: QTC was 588 on admission Likely due to multiple electrolyte abnormalities and Seroquel QTc yesterday was 413 Continue to monitor electrolyte abnormalities and manage appropriately as noted above Resumed Seroquel dose (10) Bipolar 1 disorder: Stable Seroquel resumed (11) Constipation: Chronic constipation Linzess currently on hold. Follow-up with PCP and cello teacher Has been having regular bowel movement with Dulcolax (12) DM2 (diabetes mellitus, type 2): A1c 8.5 Continue lantus and ISS Optimizing glycemic control now that patient is tolerating po diet better (13) Hypertension: Continue amlodipine. Valsartan was held due to YEVGENIY. Can resume on 06/14/2019 (14) Discharge planning issues: PT eval - Recommend rehab. However patient refused rehab and wanted to be discharged home. I discussed home health services but patient was not keen on this. PCP can continue this if needed Total Time Total Time Spent Total Time Spent (In Minutes): 40 Total Time Includes: Examination of the Patient, Discharge Planning, Medication Reconciliation and Communication With Other Providers Discharge Plan Discharge Items Patient Disposition: Home - Home Health Services Reason For Visit: WEAKNESS Discharge Diagnosis: Acute on chronic kidney disease stage IV Multiple electrolyte abnormalities [low sodium, low magnesium, low potassium] Metabolic acidosis Urinary tract infection Chronic constipation Condition on Discharge: Good Activity: As commented below Activity Comment: As tolerated Non-emergency contact: Primary Care Provider, Paper Inserter and Casino Host Call non-emergency contact if: you have any medication questions and your symptoms worsen Follow-up/Referrals: Usama Meadows MD [Primary Care Provider] - Miladys Polo MD [Physician] - Diet: Carb Consistent or DM2 and Heart Healthy Addtl Attending Provider Instructions: Ms. Lanier You came to the hospital complaining of weakness, nausea, poor appetite and chronic constipation. Evaluation showed were dehydrated with worsening of your kidney function and a lot of abnormal electrolyte levels [low sodium, low potassium, low magnesium] You were also found to have a urinary infection. You were started on antibiotics. You were treated with IV fluids with the mortgage processor. Your kidney function returned to normal and electrolyte abnormalities were corrected. Your constipation was managed and you resumed bowel movement. Nausea and poor appetite resolved. You were evaluated by physical therapist who recommended rehab. However, you declined rehab. Please continue taking the antibiotics for another 4 days to complete treatment for the urinary infection. Due to worsening of your kidney function, the Lasix (furosemide) was suspended for now. Do not resume this until you see your mortgage processor in the clinic. Your blood pressure medication called valsartan was also held for now. You can resume this medication on 06/14/2019. Your constipation was well controlled with Dulcolax for now. You were not continued on Linzess while in the hospital. Follow-up with your primary doctor and cello teacher if this is still required. It is important that you follow-up with your mortgage processor and primary physician. It is a pleasure taking care of you Pending Studies at Discharge: No Stand-Alone Forms: My [facility], Smoking Cessation Medications and DC Order Prescriptions: New cephalexin 250 mg Capsule 250 mg PO Q12 4 Days Qty: 8 RF: 0 bisacodyl 5 mg Tablet,Delayed Release (Dr/Ec) 10 mg PO DAILY PRN (Reason: constipation) Qty: 20 RF: 0 Continued multivitamin tablet 1 tab PO DAILY RF: 0 atorvastatin 20 mg tablet 20 mg PO DAILY RF: 0 valsartan 160 mg tablet 160 mg PO DAILY RF: 0 amlodipine 2.5 mg Tablet 7.5 mg PO DAILY RF: 0 pantoprazole [Protonix] 40 mg Tablet,Delayed Release (Dr/Ec) 40 mg PO DAILY RF: 0 Novolog Flexpen U-100 Insulin 100 unit/mL Insulin Pen 8 unit SUBCUT AMPM RF: 0 Novolog Flexpen U-100 Insulin 100 unit/mL Insulin Pen 8 unit SUBCUT QDL RF: 0 quetiapine [Seroquel XR] 300 mg Tablet Extended Release 24 Hr 300 mg PO DAILY RF: 0 Lantus Solostar U-100 Insulin 100 unit/mL (3 mL) Insulin Pen 10 unit SUBCUT HS RF: 0 levothyroxine 112 mcg tablet 112 mcg PO QAM RF: 0 hydrocortisone [Proctozone-HC] 2.5 % cream with perineal applicator 1 applic PA Q8H PRN (Reason: Hemorrhoids) RF: 0 Discontinued furosemide 40 mg tablet 40 mg PO DAILY RF: 0 Linzess 290 mcg capsule 290 mcg PO DAILY RF: 0 Discharge Orders: Discharge Order (Routine); Ordered 06/12/19 Ordered By: Yaz Castillo Admission Data Admit Date/Time: 06/08/19 23:04 Attending Provider: Yaz Castillo I. Admit Provider: Nomi Lopez Primary Care Provider: Usama Meadows Other Providers: Henrietta Rahman ; Uday Clifford ; [facility] Other Interventions: Discharge Summary Assessment (RN) Last Done: 06/12/19 15:45 DC Date/Time DO NOT enter until pt leaves facility: 06/12/19 15:55
== END 2019-06-12 15:55 | disposition home health service (06) | DRG 683 ==
LOC: ED 19:00 → SUATTDRO 23:04 → 2S 23:04

== ENCOUNTER 2020-04-15 14:47 | Inpatient (IN) ==
[2020-04-15] MEDS: SODIUM CHLORIDE 0.9% 1000ML 1,000 ML IV SCH (15:05)
--- NOTE | 2020-04-15 15:12 | Emergency Department Note ---
History of Present Illness General Chief complaint: Weakness Time Seen by Provider: 04/15/20 14:50 Source: patient and other (Caregiver) Mode of arrival: EMS History of Present Illness Provider complaint: Weakness Onset (ago): day(s) 2 Exacerbated By: + movement Associated symptoms: + loss of appetite, + malaise, + syncope and + weakness; no chest pain, no nausea/vomiting and no shortness of breath This is an 80-year-old female who lives at home with her who was brought in via EMS after caregivers were concerned about her worsening condition. The caregiver at bedside states that the patient has caregivers who come in every day to assist the patient and her . 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 They have no other local family to help them. Caregiver states that the patient had been increasingly w eak, and yesterday when she went to the bathroom she appeared to have an episode where she passed out and fell and subsequently struck her head. It is unknown exactly what time this happened. The caregiver at bedside states that she was able to get up, complained of a mild headache but otherwise seemed appropriate and she did not come to the emergency room yesterday. Patient admits to feeling increasingly weak, as well as dizzy and lightheaded particularly with standing. Patient denies any change in her bowel movements, stating she has chronic constipation and takes a laxative almost daily. The caregiver bedside states that her bowel movements typically are loose because of taking the laxative daily, however yesterday they noticed that the bowel movement appeared black. Both the patient and caregiver deny any obvious blood with a bowel movement. Patient denies any coming abdominal pain. Patient denied nausea and vomiting to me, although the caregiver at bedside states that yesterday she did have several episodes of nonbloody emesis. No fevers or chills noted by the caregiver and denied by the patient. No other recent illness or URI symptoms. Caregiver states blood sugar yesterday when checked by them was up over 200s however the patient typically manages her own blood sugar and insulin dosing. Caregiver denies any recent change in medications. Pt seen during a time of high acuity and national emergency pandemic while wearing PPE. Home Medications Home Medications Medication Instructions Recorded Confirmed Type atorvastatin 20 mg tablet 20 mg PO DAILY 03/03/19 04/15/20 History multivitamin 1 tab PO DAILY 03/03/19 04/15/20 History levothyroxine 112 mcg PO QAM 05/07/19 04/15/20 History OneTouch Ultra Blue Test Strip #500 ea NS 09/04/19 04/15/20 Rx pen needle, diabetic 31 gauge x See Rx Instructions .ROUTE 09/04/19 04/15/20 Rx 5/16" .COMPLEX #500 ea furosemide 40 mg tablet 40 mg PO QAM 02/15/20 04/15/20 History insulin glargine 100 unit/mL (3 12 unit SUBCUT HS ml 02/15/20 04/15/20 History mL) subcutaneous pen quetiapine 400 mg tablet 400 mg PO HS 02/15/20 04/15/20 History Novolog Flexpen U-100 Insulin 100 40 unit SUBCUT .COMPLEX #45 ml NS 02/23/20 04/15/20 Rx unit/mL (3 mL) subcutaneous amlodipine 10 mg PO DAILY 04/15/20 04/15/20 History pantoprazole 40 mg PO DAILY 04/15/20 04/15/20 History Allergies Allergy/AdvReac Type Severity Reaction Status Date / Time Iodinated Contrast Media Allergy Severe Anaphylaxis Verified 04/15/20 16:42 mold Allergy Unknown UNKNOWN Verified 04/15/20 16:42 pollen extracts Allergy Unknown UNKNOWN Verified 04/15/20 16:42 mushroom Allergy Verified 04/16/20 13:49 Dust Allergy Unknown UNKNOWN Uncoded 04/15/20 16:42 Fungi Allergy Unknown UNKNOWN Uncoded 04/15/20 16:42 Past Med/Surg History Medical History Anemia of chronic disease Anxiety Bipolar 1 disorder CKD (chronic kidney disease) stage 4, GFR 15-29 ml/min Diabetes type 2, controlled Disc degeneration, lumbar Fracture of parietal bone of skull GERD (gastroesophageal reflux disease) Jonathan's thyroiditis Hemorrhage, subdural, traumatic HLD (hyperlipidemia) Hyperparathyroidism Hypertension Hypothyroidism IBS (irritable bowel syndrome) Irritable bowel syndrome with constipation Osteopenia Pacemaker Subarachnoid, subdural, and extradural hemorrhage, following injury Surgical History H/O lumpectomy History of total abdominal hysterectomy and bilateral salpingo-oophorectomy Hx of cholecystectomy Family History Sister Colorectal cancer Other Cancer Diabetes History of hysterectomy Hypertension Stroke Social History Smoking Status: Never smoker Hx Alcohol Use: No Hx Substance Use: No Preferred Language: Cambodian Communication Ability: Effective Visual Impairment: No Limitations Hearing Ability: Normal Director Of [employer] Required: No Beliefs That Will Affect Care: None marital status: Current Living Situation: Spouse Current Living Situation Comment: home health comes in to help with pt's Other Information That Helps Us Care for You: No Feels Safe at Home: Yes Safety Concerns: Feels Safe At This Time Assistive Devices: None Review of Systems See HPI for pertinent positives & negatives. and A total of 10 systems reviewed and were otherwise negative Physical Exam Vital Signs Vital Signs - 24 hr 04/15/20 14:50 04/15/20 16:11 04/15/20 17:02 Temperature 36.6 C Temperature Source Oral Pulse Rate 83 Pulse Rate [Apical] 87 87 Pulse Rhythm Regular Pulse Rhythm [Apical] Regular Regular Pulse Strength Normal Pulse Strength [Apical] Normal Normal Respiratory Rate 16 16 16 Respiratory Effort / Characteristics Non-Labored Spontaneous Non-Labored Spontaneous Non-Labored Spontaneous Respiratory Depth Normal Normal Normal Respiratory Pattern Regular Regular Regular Blood Pressure 139/56 L Blood Pressure [Right Arm] 135/55 L 132/84 Blood Pressure Mean 83 Blood Pressure Mean [Right Arm] 81 100 Blood Pressure Position Lying Blood Pressure Position [Right Arm] Lying Lying Pulse Oximetry 85 L 98 98 Oxygen Delivery Method Room Air Nasal Cannula Nasal Cannula Oxygen Flow Rate 3 3 Sepsis Recent Fever Within 48 Hours No Sepsis New/Unexplained Change in Mental Status No Sepsis Action Taken by Nursing No Action Required Oxygen Flow Rate - Titration 4 3 Pulse Oximetry Post Tiitration 98 98 GENERAL: alert, ill appearing, well nourished, no distress EYE EXAM: normal conjunctiva, PERRL and EOM's grossly intact OROPHARYNX: no exudate, no erythema, lips, buccal mucosa, and tongue normal and mucous membranes are moist NECK: supple, no nuchal rigidity, no adenopathy, non-tender LUNGS: Clear to auscultation. Normal chest wall mechanics, no w/r/r HEART: no murmurs, S1 normal and S2 normal ABDOMEN: abdomen soft, non-tender, normo-active bowel sounds, no masses, no rebound or guarding. BACK: Back is symmetrical on inspection and there is no deformity, no midline tenderness, no CVA tenderness. SKIN: no rashes and no bruising UPPER EXTREMITIES: upper extremities are grossly normal. FROM, nml pulses b/l. LOWER EXTREMITIES: No pitting edema. FROM, nml pulses b/l. NEURO EXAM: Normal sensorium, cranial nerves II-XII grossly intact, normal speech, no facial droop, normal handgrip bilaterally, otherwise globally weak with strength testing. Gross sensation intact. Course Course 1700: Blood consent signed. Patient remains hemodynamically stable. Still unable to lay flat due to increased trouble breathing. We discussed all results and need for blood transfusion, she verbalized understanding was in agreement. Patient does states she is still taking her Protonix daily. 173: Discussed with Alisa Bone hospitalist team. Administered Medications Amlodipine Besylate (Amlodipine Besylate 5 Mg Tab) [facility] [place] Stop: 05/16/20 08:59 Last Admin: 04/16/20 08:30 Dose: 10 mg Documented by: [id number] Atorvastatin Calcium (Atorvastatin 10 Mg Tab) [facility] [place] Stop: 05/16/20 08:59 Last Admin: 04/16/20 08:30 Dose: 10 mg Documented by: [id number] Sodium Chloride (Nss 1000ml) 1,000 mls @ 50 mls/hr IV .Q20H [facility] Stop: 05/15/20 15:14 Last Admin: 04/16/20 16:21 Dose: 50 mls/hr Documented by: [id number] Infusion: 04/16/20 16:11 Dose: 50 mls/hr Documented by: [id number] Infusion: 04/16/20 14:35 Dose: 50 mls/hr Documented by: [id number] Admin: 04/16/20 07:13 Dose: 125 mls/hr Documented by: [id number] Infusion: 04/16/20 07:13 Dose: 125 mls/hr Documented by: [id number] Admin: 04/16/20 02:15 Dose: 125 mls/hr Documented by: [id number] Infusion: 04/15/20 23:05 Dose: 125 mls/hr Documented by: [id number] Admin: 04/15/20 15:05 Dose: 125 mls/hr Documented by: [id number] Pantoprazole Sodium 40 mg/ (Dextrose) 100 mls @ 20 mls/hr IV Q5H [facility] Stop: 05/15/20 17:21 Last Admin: 04/16/20 16:21 Dose: 8 mg/hr, 20 mls/hr Documented by: [id number] Infusion: 04/16/20 16:14 Dose: 8 mg/hr, 20 mls/hr Documented by: [id number] Admin: 04/16/20 11:14 Dose: 8 mg/hr, 20 mls/hr Documented by: [id number] Infusion: 04/16/20 11:14 Dose: 8 mg/hr, 20 mls/hr Documented by: [id number] Admin: 04/16/20 07:11 Dose: 8 mg/hr, 20 mls/hr Documented by: [id number] Infusion: 04/16/20 07:11 Dose: 8 mg/hr, 20 mls/hr Documented by: [id number] Admin: 04/16/20 02:46 Dose: 8 mg/hr, 20 mls/hr Documented by: [id number] Infusion: 04/16/20 02:46 Dose: 8 mg/hr, 20 mls/hr Documented by: [id number] Admin: 04/15/20 22:35 Dose: 8 mg/hr, 20 mls/hr Documented by: [id number] Infusion: 04/15/20 22:31 Dose: 8 mg/hr, 20 mls/hr Documented by: [id number] Admin: 04/15/20 17:31 Dose: 8 mg/hr, 20 mls/hr Documented by: [id number] Ceftriaxone Sodium 1,000 mg/ (Dextrose) 50 mls @ 100 mls/hr IV Q24H [facility]; Protocol Stop: 04/20/20 11:29 Last Infusion: 04/16/20 12:19 Dose: 0 mls/hr Documented by: [id number] Admin: 04/16/20 11:46 Dose: 100 mls/hr Documented by: [id number] Insulin Aspart (Insulin Aspart 100 Units/Ml 3 Ml Pen) 0 units SC ACHS [facility] Stop: 05/16/20 11:29 Last Admin: 04/16/20 17:12 Dose: 5 units Documented by: [id number] Cosigned by: [id number] Admin: 04/16/20 11:47 Dose: 4 units Documented by: [id number] Cosigned by: [id number] Levothyroxine Sodium (Levothyroxine Sodium 112 Mcg Tablet) 112 mcg PO DAILYBB [facility] Stop: 05/16/20 06:29 Last Admin: 04/16/20 06:59 Dose: Not Given Documented by: [id number] Quetiapine Fumarate (Quetiapine Fumarate 200 Mg Tab) 400 mg PO HS [facility] Stop: 05/15/20 20:59 Last Admin: 04/16/20 01:25 Dose: Not Given Documented by: [id number] Discontinued Medications Amlodipine Besylate (Amlodipine Besylate 5 Mg Tab) 5 mg PO NOW ONE Stop: 04/16/20 17:21 Last Admin: 04/16/20 17:35 Dose: Not Given Documented by: [id number] Diphenhydramine HCl (Diphenhydramine 50 Mg/Ml Vial) 12.5 mg IV NOW STA Stop: 04/15/20 23:18 Last Admin: 04/15/20 23:59 Dose: 12.5 mg Documented by: [id number] Diphenhydramine HCl (Diphenhydramine 50 Mg/Ml Vial) Confirm Administered Dose 50 mg .ROUTE .STK-MED ONE Stop: 04/15/20 23:25 Last Admin: 04/15/20 23:59 Dose: Not Given Documented by: [id number] Epinephrine HCl (Epinephrine 1.5" Ndl 0.1 Mg/Ml Syr) Confirm Administered Dose 1 mg IV .STK-MED ONE Stop: 04/16/20 00:47 Last Admin: 04/16/20 01:27 Dose: Not Given Documented by: [id number] Pantoprazole Sodium (Protonix Bolus/Drip) 0 mls @ 1 mls/hr IV ONE STA Stop: 04/15/20 17:08 Last Admin: 04/15/20 23:57 Dose: Not Given Documented by: [id number] Pantoprazole Sodium 80 mg/ (Dextrose) 120 mls @ 400 mls/hr IV NOW ONE Stop: 04/15/20 17:24 Last Infusion: 04/16/20 00:15 Dose: 0 mls/hr Documented by: [id number] Admin: 04/15/20 17:31 Dose: 400 mls/hr Documented by: [id number] Critical Care Time Critical Care Time: Yes Total Critical Care Time: 65 Critical care of 65 min performed to assess and manage high likelihood of life- threatening anemia and GI bleed, involving labs and imaging performed with assessment to evaluate anemia diagnosis with frequent reassessment. This time includes bedside time, treatment discussions with patient/family/consultants, documentation time and excludes procedure time. Medical Decision Making Differential Diagnosis Differential Diagnosis includes but is not limited to dehydration, stroke, anemia, hypoglycemia, hyponatremia, hypernatremia, urinary tract infection, pneumonia, bronchitis, sepsis, gastroenteritis, additional abdominal pathology, metabolic abnormalities and infections. Medical Records Attestation: I reviewed the patient's medical records. Home Medications Current Medication List: was personally reviewed by me Laboratory Data Attestation: I reviewed the patient's lab results. Result diagrams: 04/16/20 18:28 04/16/20 02:11 Lab Results 04/15/20 04/15/20 04/15/20 Range/Units 16:18 16:18 16:18 WBC 11.27 H (4.8-10.8) K/uL RBC 1.19 L (4.2-5.4) M/uL Hgb 3.7 L* (12.0-16.0) g/dL Hct 11.9 L* (37-47) % MCV 100.0 (80-100) fL MCH 31.1 (25-34) pg MCHC 31.1 L (32-36) g/dL RDW Std Deviation 50.8 H (36.4-46.3) fL RDW Coeff of Tim 14.6 H (11.5-14.5) % Plt Count 269 (130-400) K/uL MPV 10.9 H (7.4-10.4) fL Immature Gran % (Auto) 0.4 % Neut % (Auto) 79.7 % Lymph % (Auto) 15.2 % [place] % (Auto) 4.5 % Eos % (Auto) 0.0 % Baso % (Auto) 0.2 % Neut # (Auto) 8.99 H (1.4-6.5) K/uL Lymph # (Auto) 1.71 (1.2-3.4) K/uL [place] # (Auto) 0.51 (0.11-0.59) K/uL Eos # (Auto) 0.00 (0-0.5) K/uL Baso # (Auto) 0.02 (0-0.2) K/uL Immature Gran # (Auto) 0.04 H (0.00-0.02) K/uL Absolute Nucleated RBC 0.04 H (0-0) K/uL Nucleated RBC % (auto) 0.4 % Polychromasia 1+ PT 10.3 (9.0-12.0) Seconds INR 1.0 (0.9-1.1) Sodium 135 L (136-145) mmol/L Potassium 4.2 (3.5-5.1) mmol/L Chloride 102 (98-107) mmol/L Carbon Dioxide 29 (21-32) mmol/L Anion Gap 4.0 (3-11) BUN 95 H (7-18) mg/dl Creatinine 2.89 H (0.6-1.2) mg/dl Est Cr Clr Drug Dosing 13.0 ml/min Est GFR ( Amer) 16.8 Est GFR (Non-Af Amer) 14.5 BUN/Creatinine Ratio 32.8 H (10-20) Glucose 236 H (70-99) mg/dl Calcium 7.7 L (8.5-10.1) mg/dl Magnesium 5.6 H* (1.8-2.4) mg/dl Total Bilirubin 0.2 (0.2-1) mg/dl AST 24 (15-37) U/L ALT 15 (12-78) U/L Alkaline Phosphatase 134 H (45-117) U/L Total Creatine Kinase (26-192) U/L Troponin I 0.036 (0-0.045) ng/ml NT-Pro-B Natriuret Pep 2471 H (0-1800) pg/ml Total Protein 5.5 L (6.4-8.2) gm/dl Albumin 2.7 L (3.4-5.0) gm/dl Globulin 2.8 (2.5-4.0) gm/dl Albumin/Globulin Ratio 1.0 (0.9-2) Lipase 115 (73-393) U/L Procalcitonin (0-0.5) ng/ml TSH 0.019 L (0.300-4.500) uIu/ml Free T4 0.90 (0.8-1.6) ng/dl Blood Type Antibody Screen Crossmatch 10/30/20 10/30/20 10/30/20 Range/Units 16:18 16:42 18:00 WBC (4.8-10.8) K/uL RBC (4.2-5.4) M/uL Hgb (12.0-16.0) g/dL Hct (37-47) % MCV (80-100) fL MCH (25-34) pg MCHC (32-36) g/dL RDW Std Deviation (36.4-46.3) fL RDW Coeff of Tim (11.5-14.5) % Plt Count (130-400) K/uL MPV (7.4-10.4) fL Immature Gran % (Auto) % Neut % (Auto) % Lymph % (Auto) % [place] % (Auto) % Eos % (Auto) % Baso % (Auto) % Neut # (Auto) (1.4-6.5) K/uL Lymph # (Auto) (1.2-3.4) K/uL [place] # (Auto) (0.11-0.59) K/uL Eos # (Auto) (0-0.5) K/uL Baso # (Auto) (0-0.2) K/uL Immature Gran # (Auto) (0.00-0.02) K/uL Absolute Nucleated RBC (0-0) K/uL Nucleated RBC % (auto) % Polychromasia PT (9.0-12.0) Seconds INR (0.9-1.1) Sodium (136-145) mmol/L Potassium (3.5-5.1) mmol/L Chloride (98-107) mmol/L Carbon Dioxide (21-32) mmol/L Anion Gap (3-11) BUN (7-18) mg/dl Creatinine (0.6-1.2) mg/dl Est Cr Clr Drug Dosing ml/min Est GFR ( Amer) Est GFR (Non-Af Amer) BUN/Creatinine Ratio (10-20) Glucose (70-99) mg/dl Calcium (8.5-10.1) mg/dl Magnesium (1.8-2.4) mg/dl Total Bilirubin (0.2-1) mg/dl AST (15-37) U/L ALT (12-78) U/L Alkaline Phosphatase (45-117) U/L Total Creatine Kinase 479 H (26-192) U/L Troponin I (0-0.045) ng/ml NT-Pro-B Natriuret Pep (0-1800) pg/ml Total Protein (6.4-8.2) gm/dl Albumin (3.4-5.0) gm/dl Globulin (2.5-4.0) gm/dl Albumin/Globulin Ratio (0.9-2) Lipase (73-393) U/L Procalcitonin 0.47 (0-0.5) ng/ml TSH (0.300-4.500) uIu/ml Free T4 (0.8-1.6) ng/dl Blood Type O Positive Antibody Screen NEGATIVE Crossmatch See Detail Imaging Data Radiologist's Impression: XR chest 1V portable CLINICAL HISTORY: fall, weakness COMPARISON STUDY: 06/08/2019 FINDINGS: The cardiac and mediastinal contours remain stable. There is a right subclavian dual-chamber central venous pacemaker. There is no failure. There is no focal pulmonary consolidation. There are no pleural effusions.[ IMPRESSION: No active disease in the chest. ACT 112: Negative or not required by law. Electronically signed by: Flaco Briggs M.D. 04/15/2020 3:[address] cervical spine wo con CT DOSE: 1105.52 mGy.cm CLINICAL HISTORY: 80 years-old Female with fall, trauma. Acute head and neck trauma status post fall COMPARISON: CT head of same day, CT cervical spine 02/14/2018 TECHNIQUE: Multiple axial CT images of the cervical spine were obtained without contrast. A dose lowering technique was utilized adhering to the principles of ALARA. FINDINGS: Demineralized appearance of the bones. Remote compression deformity with superior endplate Schmorl's node at T1 with remote minimal C7 compression deformity. Moderate disc space narrowing at C3-C4 with uncovertebral spurring and posterior disc osteophyte complex. There is mild to moderate multilevel facet arthrosis. No acute fracture or subluxation. Multilevel foraminal narrowing. Evaluation of the central canal and neuroforamina is better evaluated by 9. Clear mastoid air cells. Partially imaged right subclavian pacer leads. No pneumothorax or prevertebral edema. Calcified right thyroid nodules. Since of calcified plaque of the carotid bulbs. IMPRESSION: No acute fracture or subluxation. ACT 112: Negative or not required by law. The above report was generated using voice recognition software. It may contain grammatical, syntax or spelling errors. Electronically signed by: Didier Giordano M.D. 04/15/2020 4:[address] SCAN OF THE BRAIN WITHOUT IV CONTRAST CLINICAL HISTORY: Trauma. Fall. COMPARISON STUDY: CT of the brain dated 06/09/2019. TECHNIQUE: Unenhanced axial CT scan of the brain is performed from the vertex to the skull base. A dose lowering technique was utilized adhering to the princip les of ALARA. FINDINGS: Brain parenchyma: There are age-related involutional changes noting moderate subcortical and periventricular microangiopathic change. There is no hemorrhage, mass effect, or evidence of acute territorial ischemia by CT criteria. Espinoza- white matter differentiation is preserved. No extra-axial fluid collection is seen. Ventricles, sulci, cisterns: Prominent secondary to involutional change. Intracranial vasculature: There is atherosclerotic calcification of the cavernou s carotid and vertebral arteries. Calvarium: The skeletal structures are osteopenic. No depressed calvarial fracture is identified. Sinuses and mastoids: The visualized paranasal sinuses are clear. The mastoid air cells are well pneumatized. Orbits: The bony orbits are grossly intact. There are bilateral ocular lens implants. IMPRESSION: There is no hemorrhage, mass effect, or evidence of acute territorial ischemia by CT criteria. ACT 112: Negative or not required by law. Electronically signed by: Josesito Schmitt M.D. 04/15/2020 4:51 PM ECG Data Attestation: I personally reviewed and interpreted this ECG as follows: Indication: + weakness Rate (beats per minute): 81 Rhythm: + normal sinus ECG Intervals/blocks: + Normal QRS and + Normal QT ECG ST segments: + ST depression (II, aVF, V4-6) and + T-wave inversions (I, aVL) Blood Pressure Blood Pressure Findings: Elevated blood pressure MDM Narrative Elderly female who presented via EMS with caregiver who assists her and her as he is demented who is markedly ill-appearing on initial presentation. While patient was stable hemodynamically, concern for underlying illness and likely anemia given her pale appearance. Difficulty obtaining IV access, and after attempts by myself, colleague in the emergency room with ultrasound at bedside as well as by IV team, eventually a line was placed in the lower extre mity. IV fluids were started, the labs were sent, patient sent for CT imaging to rule out trauma given the fall yesterday. Following return from this, as the labs started to result, patient found to be profoundly anemic with a hemoglobin of a little more than 3. Patient does not use any anticoagulation. Patient the other the story from the patient as she became more alert with additional IV hydration as well as from the caregivers, patient with likely recurrent GI bleed which she has had previously despite her ongoing use of Protonix which led to lightheaded and orthostatic symptoms when she got up off the toilet yesterday and subsequently lost consciousness falling and striking her head. No acute traumatic injury noted on CTs of the head and C-spine. Chest x-ray reassuring. Patient found to have no acute kidney injury. Type and screen had already been sent, Protonix bolus and drip started, and after discussion at bedside patient signed blood consent form and blood transfusion ordered. I was unable initially to rule the patient to perform a rectal exam as patient became markedly short of breath with any movement and could not lay flat. This was also precluding to initial discussion and consideration for placement of a central line. Likely after some IV fluids and additional peripheral 18-gauge IV was able to be secured. Patient was continuously updated and continued to show improvement, and remained hemodynamically stable in the emergency room. Blood transfusion was started prior to her being moved to the intensive care unit. The intensive care unit resident and attending were updated. I suspect given prior history of gastric ulcers as well as melena noted by staff yesterday, patient with recurrent upper GI bleed. Discussed with her likely need for repea t EGD. Patient aware she is critically ill at this time, and is concerned about the care of her demented . I spoke with the caregiver who was at bedside and she has already taken the initiative to help arrange for additional care for someone to continuously be with her at home. Patient and have no family to otherwise contact. Case was discussed with hospitalist who was made aware of her critical condition. Patient had no active vomiting or melena in the emergency room. Patient did initially require oxygen via nasal cannula as with continued conversation her oxygen saturation would drop down into the mid 80s. An order was placed for continuous cardiac monitoring. The monitor shows a rate of _78__ with _normal sinus_ rhythm. Impression & Plan Anemia, Acute GI bleeding, Weakness, YEVGENIY (acute kidney injury), Dehydration, Abnormal ECG, Hypoxia Discharge Plan Visit Data Chief Complaint: Weakness ED Provider: Ivonne Lema Discharge Problem: Anemia, Acute GI bleeding, Weakness, YEVGENIY (acute kidney injury), Dehydration, Abnormal ECG, Hypoxia Patient Disposition: Admitted As Inpatient Discharge Instructions Interventions: ED Discharge Assessment Last Done: 04/15/20 18:59 Discharge Problem: Anemia Qualifiers: Anemia type: other cause Other causes of anemia: acute posthemorrhagic Qualified Code(s): D62 - Acute posthemorrhagic anemia
--- NOTE | 2020-04-15 15:34 | XRay Report ---
XR chest 1V portable CLINICAL HISTORY: fall, weakness COMPARISON STUDY: 06/08/2019 FINDINGS: The cardiac and mediastinal contours remain stable. There is a right subclavian dual-chambe r central venous pacemaker. There is no failure. There is no focal pulmonary consolidation. There are no pleural effusions.[ IMPRESSION: No active disease in the chest. ACT 112: Negative or not required by law. Electronically signed by: Flaco Briggs M.D. 04/15/2020 3:33 PM
[2020-04-15 16:39] LABS: Hematocrit (blood only) 11.9 % (37-47); Hemoglobin 3.7 g/dL (12.0-16.0); Mean Corpuscular Hemoglobin 31.1 pg (25-34); Mean Corpuscular Hgb Conc 31.1 g/dL (32-36); Mean Platelet Volume 10.9 fL (7.4-10.4); Nucleated RBC # (auto) 0.04 K/uL (0-0); Nucleated RBC % (auto) 0.4 %; Platelet Count 269 K/uL (130-400); RDW Coefficient of Variation 14.6 % (11.5-14.5); RDW Standard Deviation 50.8 fL (36.4-46.3); Red Blood Count 1.19 M/uL (4.2-5.4); White Blood Count 11.27 K/uL (4.8-10.8)
[2020-04-15 16:46] LABS: Prothrombin Time 10.3 Seconds (9.0-12.0)
--- NOTE | 2020-04-15 16:52 | CT Scan Report ---
CT SCAN OF THE BRAIN WITHOUT IV CONTRAST CLINICAL HISTORY: Trauma. Fall. COMPARISON STUDY: CT of the brain dated 06/09/2019. TECHNIQUE: Unenhanced axial CT scan of the brain is performed from the vertex to the skull base. A do se lowering technique was utilized adhering to the principles of ALARA. FINDINGS: Brain parenchyma: There are age-related involutional changes noting moderate subcortical and periven tricular microangiopathic change. There is no hemorrhage, mass effect, or evidence of acute territori al ischemia by CT criteria. Espinoza-white matter differentiation is preserved. No extra-axial fluid loulou ection is seen. Ventricles, sulci, cisterns: Prominent secondary to involutional change. Intracranial vasculature: There is atherosclerotic calcification of the cavernous carotid and vertebr al arteries. Calvarium: The skeletal structures are osteopenic. No depressed calvarial fracture is identified. Sinuses and mastoids: The visualized paranasal sinuses are clear. The mastoid air cells are well pneu matized. Orbits: The bony orbits are grossly intact. There are bilateral ocular lens implants. IMPRESSION: There is no hemorrhage, mass effect, or evidence of acute territorial ischemia by CT amarjit sal. ACT 112: Negative or not required by law. Electronically signed by: Josesito Schmitt M.D. 04/15/2020 4:51 PM
--- NOTE | 2020-04-15 16:56 | CT Scan Report ---
CT cervical spine wo con CT DOSE: 1105.52 mGy.cm CLINICAL HISTORY: 80 years-old Female with fall, trauma. Acute head and neck trauma status post fall COMPARISON: CT head of same day, CT cervical spine 02/14/2018 TECHNIQUE: Multiple axial CT images of the cervical spine were obtained without contrast. A dose low ering technique was utilized adhering to the principles of ALARA. FINDINGS: Demineralized appearance of the bones. Remote compression deformity with superior endplate Schmorl's node at T1 with remote minimal C7 compression deformity. Moderate disc space narrowing at C3-C4 with uncovertebral spurring and posterior disc osteophyte complex. There is mild to moderate multilevel fa cet arthrosis. No acute fracture or subluxation. Multilevel foraminal narrowing. Evaluation of the ce ntral canal and neuroforamina is better evaluated by 9. Clear mastoid air cells. Partially imaged rig ht subclavian pacer leads. No pneumothorax or prevertebral edema. Calcified right thyroid nodules. Si nce of calcified plaque of the carotid bulbs. IMPRESSION: No acute fracture or subluxation. ACT 112: Negative or not required by law. The above report was generated using voice recognition software. It may contain grammatical, syntax o r spelling errors. Electronically signed by: Didier Giordano M.D. 04/15/2020 4:54 PM
[2020-04-15 16:59] LABS: Basophils # (auto) 0.02 K/uL (0-0.2); Basophils % (auto) 0.2 %; Immature Granulocytes # (auto) 0.04 K/uL (0.00-0.02); Immature Granulocytes % (auto) 0.4 %; Lymphocytes # (auto) 1.71 K/uL (1.2-3.4); Lymphocytes % (auto) 15.2 %; Monocytes # (auto) 0.51 K/uL (0.11-0.59); Monocytes % (auto) 4.5 %; Neutrophils # (auto) 8.99 K/uL (1.4-6.5); Neutrophils % (auto) 79.7 %; Polychromasia 1+
[2020-04-15 17:05] LABS: Albumin Level 2.7 gm/dl (3.4-5.0); BUN Creatinine Ratio 32.8 (10-20); Bilirubin,Total 0.2 mg/dl (0.2-1); Calcium 7.7 mg/dl (8.5-10.1); Est GFR (African American) 16.8; Est GFR (Non-African American) 14.5; Globulin 2.8 gm/dl (2.5-4.0); Magnesium 5.6 mg/dl (1.8-2.4); Potassium 4.2 mmol/L (3.5-5.1); Thyroid Stimulating Hormone 0.019 uIu/ml (0.300-4.500); Total Protein 5.5 gm/dl (6.4-8.2); Troponin I 0.036 ng/ml (0-0.045)
[2020-04-15] MEDS ORDERED: SODIUM CHLORIDE 0.9% 250 ML IV PRN ×2 (17:07→17:25)
[2020-04-15] MEDS ORDERED: PANTOPRAZOLE BOLUS/DRIP 1 EA IV STA (17:07)
[2020-04-15] MEDS ORDERED: PANTOprazole 80 MG in DEXTROSE 5% 100 ML IV ONE (17:07)
[2020-04-15 17:21] LABS: T4 Free Thyroxine 0.9 ng/dl (0.8-1.6)
[2020-04-15] MEDS: PANTOprazole 40 MG in DEXTROSE 5% 100 ML IV SCH ×2 (17:31→22:35)
--- NOTE | 2020-04-15 19:05 | Critical Care Consultation ---
Date of Consultation April 15, 2020 Assessment & Plan (1) Admitted to intensive care unit: Reason Critically Ill: 80 yo F who presented after being found down in her home for an unknown period of time, found to be significantly anemic with a hemoglobin of 3.7 on admission. She is currently hemodynamically stable. Sent to the ICU for close monitoring and transfusion. Neuro: * Hx of Bipolar disorder - hold home quetiapine while NPO - head CT on admission showing on evidence of acute bleed or fracture - C-spine CT on admission showing no evidence of acute fracture or subluxation - Delirium precautions Cardiac: * Elevated troponin - trop elevated to 0.036 on admission - likely secondary to demand ischemia in the setting of significant anemia - ST segment depression present on admission EKG - patient denies any CP - continue to trend - continuous lunchroom monitor Respiratory: - no history of underlying lung disease - supplemental O2 as needed GI: * Hx gastric ulcers - patient was on protonix at home - boluses with 80mg of IV Protonix in ED; continue drip - report of 1 black BM on day of admission - GI consulted; NPO in anticipation of scope RENAL/LYTES: * YEVGENIY on underlying CKD - Cr 2.89 on admission, BUN 95, ratio of 32 - baseline Cr appears to be ~ 2.2 - suspect pre-renal etiology due to renal hypoperfusion - IV hydration - renally dose meds as appropriate - trend BMP - will check CK level given concern for possible rhabdomyolysis - ICU electrolyte replacement protocol : - Matthew - monitor stick Is/Os ENDO: * Type II diabetes mellitus - insulin dependent - ICU protocol for hypoglycemia * Hypothyroidism - TSH low at 0.019 on admission - hold home levothyroxine while JEWEL HEME: * Anemia - Hgb 3.7 on admission, MCV 100 - report of black tarry BM on day of admission - given how low Hgb was on admission and patient's ongoing hemodynamic stability, suspect this represents a chronic, progressive bleed rather than acute blood loss - anemia of chronic diseas on patient's problem list, baseline Hgb unknown at this time - 3 units of packed red blood cells on hold in blood bank; will begin to transfuse now - trend H+H q4 ID: * Leukocytosis - WBC mildly elevated to 11 on admission - suspect reactive to acute physiological stress - CXR without evidence of consolidation - UA ordered - no suspicion of infection at this time - MRSA nasal swab pending LINES/IV ACCESS: 2 PIVx, 1 is a 22 gauge, 1 is an 18 gauge CODE STATUS: Full DVT PROPHYLAXIS: SCDs, chemoprophylaxis contraindicated in the setting of profound anemia Dispo: ICU. Case management consulted. Thank you for allowing us to participate in the care of this patient. Please refer to my attending physician's documentation for any further recommendations. History of Present Illness Reason for Consultation: Mrs. Lanier is an 80 yo woman with a PMHx of a gastric ulcer and anemia of chronic disease who was brought to the [facility] ED on 04/15/20 after being found down at home by her caregiver. It is unknown how long she was down for - however it was certainly less than 24 hours. Mrs. Lanier apparently went to the bathroom, felt weak and lightheaded after she stood up from the toilet, and apparently fell over. This event was unwitnessed - her caregiver found her on the bathroom floor this afternoon. Her caregiver reports seeing "black contents," in the toilet bowel. Mrs. Lanier says she did strike her head on the toilet seat when she fell. Other than the black BM today, Mrs. Lanier denies any previous bloody stools. She did have several episodes of non-bloody emesis yesterday, per caregiver. The caregiver also reports a history of progressive weakness leading up to admission. Mrs. Lanier does not take any blood thinners or anti-platelet agents. Mrs. Lanier den ies ever having a colonoscopy. Mrs. Lanier lives independently with her - they have no additional family in the area. Her has advanced dementia and Mrs. Lanier serves as his caregiver. The [facility] do have private caregivers that come into their home and assist them daily. In the ED, she was found to have a hemoglobin of 3.7, Mcv 100. Coags WNL. Trop detectable at 0.036. EKG showing NSR with diffuse ST segment depression, and a prolonged QTc interval. A fecal occult blood was not obtained. Head CT showing no evidence of acute bleed or fracture. C-spine CT showing no acute fracture or subluxation. CXR shows no acute pathology. She was administered a protonix bolus and started on a drip. Normal saline started at 125mls/hr. She was typed and crossed. 3 units of pRBCs were placed on hold. Blood consent reviewed and signed by patient. Allergies Allergy/AdvReac Type Severity Reaction Status Date / Time Iodinated Contrast Media Allergy Severe Anaphylaxis Verified 04/15/20 16:42 mold Allergy Unknown UNKNOWN Verified 04/15/20 16:42 pollen extracts Allergy Unknown UNKNOWN Verified 04/15/20 16:42 Dust Allergy Unknown UNKNOWN Uncoded 04/15/20 16:42 Fungi Allergy Unknown UNKNOWN Uncoded 04/15/20 16:42 Home Medications Home Medications Medication Instructions Recorded Confirmed Type atorvastatin 20 mg tablet 20 mg PO DAILY 03/03/19 04/15/20 History multivitamin 1 tab PO DAILY 03/03/19 04/15/20 History levothyroxine 112 mcg PO QAM 05/07/19 04/15/20 History OneTouch Ultra Blue Test Strip #500 ea NS 09/04/19 04/15/20 Rx pen needle, diabetic 31 gauge x See Rx Instructions .ROUTE 09/04/19 04/15/20 Rx 5/16" .COMPLEX #500 ea furosemide 40 mg tablet 40 mg PO QAM 02/15/20 04/15/20 History insulin glargine 100 unit/mL (3 12 unit SUBCUT HS ml 02/15/20 04/15/20 History mL) subcutaneous pen quetiapine 400 mg tablet 400 mg PO HS 02/15/20 04/15/20 History Novolog Flexpen U-100 Insulin 100 40 unit SUBCUT .COMPLEX #45 ml NS 02/23/20 04/15/20 Rx unit/mL (3 mL) subcutaneous amlodipine 10 mg PO DAILY 04/15/20 04/15/20 History pantoprazole 40 mg PO DAILY 04/15/20 04/15/20 History Patient History Medical History (Updated 04/15/20 @ 19:26 by VALERIE Drummond) Anemia of chronic disease Anxiety Bipolar 1 disorder CKD (chronic kidney disease) stage 4, GFR 15-29 ml/min Diabetes type 2, controlled Disc degeneration, lumbar Fracture of parietal bone of skull GERD (gastroesophageal reflux disease) Jonathan's thyroiditis Hemorrhage, subdural, traumatic HLD (hyperlipidemia) Hyperparathyroidism Hypertension Hypothyroidism IBS (irritable bowel syndrome) Irritable bowel syndrome with constipation Osteopenia Pacemaker Subarachnoid, subdural, and extradural hemorrhage, following injury Surgical History H/O lumpectomy History of total abdominal hysterectomy and bilateral salpingo-oophorectomy Hx of cholecystectomy Family History Sister Colorectal cancer Other Cancer Diabetes History of hysterectomy Hypertension Stroke Social History Smoking Status: Never smoker Hx Alcohol Use: No Hx Substance Use: No Preferred Language: Mandarin Nauruan Communication Ability: Effective Visual Impairment: No Limitations Hearing Ability: Normal Communications Technologist Required: No Beliefs That Will Affect Care: None marital status: Current Living Situation: Spouse Feels Safe at Home: Yes Assistive Devices: None Review of Systems Constitutional: + weakness Respiratory: + dyspnea Cardiovascular: no chest pain Physical Exam Constitutional: cooperative; + uncomfortable Eyes: PERRL, conjunctivae normal, anicteric sclerae ENMT: external ear and nose normal, oropharynx normal Neck: normal visual inspection and trachea midline Respiratory: normal respiratory effort, lungs clear to auscultation Patient with conversational hypoxia. Also hypoxia when she attempts to change positions Cardiovascular: Rate/Rhythm: regular rate and regular rhythm Heart Sounds: normal S1, normal S2 and + murmur (systolic ejection murmur ) Extremities: no pedal edema Chest (Breasts): Chest: + pacemaker Gastrointestinal (Abdomen): Inspection/Auscultation: normal bowel sounds Percussion/Palpation: + abdomen tender (reports mild tenderness diffusely ) and abdomen soft; no guarding Musculoskeletal: She is wearing a compression sleeve on the R lower leg Skin: + pallor; no ecchymosis Neurologic: moves all extremities and awake; no focal motor deficits Psychiatric: Orientation: alert, oriented to person and oriented to place; + not oriented to time Results & Data Results & Data ([facility]) Vital Signs (Past 12 Hours) Vital Signs Temp Pulse Pulse Resp BP BP Pulse Ox 04/15/20 17:02 87 16 132/84 98 04/15/20 16:11 87 16 135/55 L 98 04/15/20 14:50 36.6 C 83 16 139/56 L 85 L Resident Activity Tracking Resident Involvement: Resident Care Provided Care Provided: Adult [facility] Medicine
--- NOTE | 2020-04-15 19:23 | History & Physical Report ---
Date of Service April 15, 2020 Assessment & Plan (1) Anemia: (2) GI bleed: -Admit to ICU -Patient presenting from home with a suspected syncopal event and fall, reported black stool yesterday -In the ED, Hgb found to be 3.7 -BP and HR stable -Prior EGD and colonoscopy not on file -Transfuse PRBC -S/p Protonix bolus and drip in ED, continue with drip -N.p.o. -GI consult, case discussed with Dr. Alvarado -Case also discussed with hand chain maker Dr. Best (3) CKD (chronic kidney disease) stage 4, GFR 15-29 ml/min: -Baseline creatinine 2.4-2.8 -2.8 today -Continue to monitor renal functions (4) Diabetes type 2, controlled: -Hgb A1c 8.5 05/2019 -Update Hgb A1c -Lantus and NovoLog per protocol while hospitalized (5) Hypertension: -BP currently controlled, will hold amlodipine and furosemide for now due to significant hypovolemia from anemia (6) Bipolar 1 disorder: -Continue Seroquel (7) Hypothyroidism: -TSH 0.019, free T4 0.9 -Continue levothyroxine (8) DVT prophylaxis: -SCDs due to anemia/GI bleeding Admission and Anticipated Discharge Date Admission Date: April 15, 2020 History of Present Illness Chief Complaint: Weakness, fall Primary Care Provider: Usama Meadows MD 80-year-old female with PMH DM type II, CKD stage IV, hypothyroidism, bipolar disorder, and other problems listed below who presents to the ED for evaluation of generalized weakness and fall. History is limited from the patient. History is obtained from ED documentation. Patient reports that yesterday she felt lightheaded after standing up from the toilet and subsequently fell to the ground. She is unsure if she had loss of consciousness. Caregiver found her on the floor this afternoon. Caregiver also reported that patient had had a black bowel movement. She also apparently had several nonbloody emesis yesterday. Patient was brought to the ED for further evaluation. Patient currently denies chest pain and shortness of breath. No abdominal pain. Denies any other recent illnesses, fevers, chills. No urinary symptoms. In the ED, patient is found to have hemoglobin 3.7. Patient was hypoxic on room air at 85%, currently saturating well with oxygen via nasal cannula. BP and heart rate are stable. Patient was given IVF and given Protonix bolus and started on a drip. She was also typed and crossed for 3 unit PRBC. Allergies Allergy/AdvReac Type Severity Reaction Status Date / Time Iodinated Contrast Media Allergy Severe Anaphylaxis Verified 04/15/20 16:42 mold Allergy Unknown UNKNOWN Verified 04/15/20 16:42 pollen extracts Allergy Unknown UNKNOWN Verified 04/15/20 16:42 Dust Allergy Unknown UNKNOWN Uncoded 04/15/20 16:42 Fungi Allergy Unknown UNKNOWN Uncoded 04/15/20 16:42 Home Medications Home Medications Medication Instructions Recorded Confirmed Type atorvastatin 20 mg tablet 20 mg PO DAILY 03/03/19 04/15/20 History multivitamin 1 tab PO DAILY 03/03/19 04/15/20 History levothyroxine 112 mcg PO QAM 05/07/19 04/15/20 History OneTouch Ultra Blue Test Strip #500 ea NS 09/04/19 04/15/20 Rx pen needle, diabetic 31 gauge x See Rx Instructions .ROUTE 09/04/19 04/15/20 Rx 5/16" .COMPLEX #500 ea furosemide 40 mg tablet 40 mg PO QAM 02/15/20 04/15/20 History insulin glargine 100 unit/mL (3 12 unit SUBCUT HS ml 02/15/20 04/15/20 History mL) subcutaneous pen quetiapine 400 mg tablet 400 mg PO HS 02/15/20 04/15/20 History Novolog Flexpen U-100 Insulin 100 40 unit SUBCUT .COMPLEX #45 ml NS 02/23/20 04/15/20 Rx unit/mL (3 mL) subcutaneous amlodipine 10 mg PO DAILY 04/15/20 04/15/20 History pantoprazole 40 mg PO DAILY 04/15/20 04/15/20 History Past Med/Surg History Medical History (Updated 04/15/20 @ 19:37 by VALERIE Drummond) Anemia of chronic disease Anxiety Bipolar 1 disorder CKD (chronic kidney disease) stage 4, GFR 15-29 ml/min Diabetes type 2, controlled Disc degeneration, lumbar Fracture of parietal bone of skull GERD (gastroesophageal reflux disease) Jonathan's thyroiditis Hemorrhage, subdural, traumatic HLD (hyperlipidemia) Hyperparathyroidism Hypertension Hypothyroidism IBS (irritable bowel syndrome) Irritable bowel syndrome with constipation Osteopenia Pacemaker Subarachnoid, subdural, and extradural hemorrhage, following injury Surgical History H/O lumpectomy History of total abdominal hysterectomy and bilateral salpingo-oophorectomy Hx of cholecystectomy Family History Sister Colorectal cancer Other Cancer Diabetes History of hysterectomy Hypertension Stroke Social History Smoking Status: Never smoker Hx Alcohol Use: No Hx Substance Use: No Preferred Language: Doubles Alley Communication Ability: Effective Visual Impairment: No Limitations Hearing Ability: Normal Pulley Mortiser Operator Required: No Beliefs That Will Affect Care: None marital status: Current Living Situation: Spouse Feels Safe at Home: Yes Assistive Devices: None Review of Systems Review of Systems: Reviewed with patient however felt to be somewhat unreliable. Physical Exam Constitutional: WD/WN, vitals as above + ill appearing Eyes: PERRL, conjunctivae normal, anicteric sclerae ENMT: external ear and nose normal, oropharynx normal Respiratory: normal respiratory effort, lungs clear to auscultation Cardiovascular: Rate/Rhythm: regular rate and regular rhythm Vessels: normal peripheral pulses Extremities: no edema Gastrointestinal (Abdomen): normal bowel sounds, soft, nontender, no hepatosplenomegaly Musculoskeletal: no cyanosis or clubbing, extremities motor strength 5/5 Skin: no rashes, warm and dry + pallor Neurologic: PERRL, EOMI, accommodation nl, no face palsy, no dysarthria Psychiatric: Orientation: alert and oriented x 3 Affect: + flat affect Insight: + limited insight Results & Data Results & Data ([facility]) Vital Signs (Past 12 Hours) Vital Signs Temp Pulse Pulse Resp BP BP Pulse Ox 04/15/20 19:05 37.2 C 83 16 129/62 100 04/15/20 18:59 84 16 100 04/15/20 18:51 37.3 C 84 16 136/64 96 04/15/20 17:02 87 16 132/84 98 04/15/20 16:11 87 16 135/55 L 98 04/15/20 14:50 36.6 C 83 16 139/56 L 85 L Laboratory Results Short CBC 04/15/20 Range/Units 16:18 WBC 11.27 H (4.8-10.8) K/uL Hgb 3.7 L* (12.0-16.0) g/dL Hct 11.9 L* (37-47) % Plt Count 269 (130-400) K/uL BMP 04/15/20 16:18 Sodium 135 L Potassium 4.2 Chloride 102 Carbon Dioxide 29 BUN 95 H Creatinine 2.89 H Glucose 236 H Calcium 7.7 L Cardiac Enzymes 04/15/20 Range/Units 16:18 Troponin I 0.036 (0-0.045) ng/ml Liver Function 04/15/20 Range/Units 16:18 Total Bilirubin 0.2 (0.2-1) mg/dl AST 24 (15-37) U/L ALT 15 (12-78) U/L Alkaline Phosphatase 134 H (45-117) U/L Albumin 2.7 L (3.4-5.0) gm/dl Diagnostic Findings CERVICAL SPINE CT IMPRESSION: No acute fracture or subluxation. HEAD CT IMPRESSION: There is no hemorrhage, mass effect, or evidence of acute territorial ischemia by CT criteria. CXR IMPRESSION: No active disease in the chest. Code Status & VTE Plan Code Status CODE STATUS was discussed with patient however I do not feel as though she has complete understanding. Patient is estranged from her children and has severe dementia. [facility] chart was reviewed for copy of living will or advanced directive and there is none on file. Patient will be made a full code. VTE Prophylaxis Plan VTE Prophylaxis will be ordered: Yes Supervising Physician Co-Signing Physician Notes Attending addendum: The patient was seen and examined in ICU She complains to have weakness but denies any other significant symptoms Denies any abdominal pain, nausea and or vomiting, no palpitation and/or shortness of breath No fever and/or chills On examination Lying in bed comfortably but very pale looking Hemodynamically stable Chest-clear to auscultate bilaterally Heart-S1-S2, regular with 2/6 systolic murmur over the precordium Abdomen-benign, bowel sounds present Extremities-trace edema bilaterally WAITER/WAITRESS ROOM SERVICE-alert and awake. Very weak and lethargic Admission labs, EKG and imaging studies reviewed Has acute blood loss anemia likely secondary to upper GI bleed-getting blood transfusions, intravenous PPI and GI consult for EGD tomorrow CKD Type 2 diabetes, hypertension and hypothyroidism Agree with assessment and plan as outlined above by Smitha Braden (1) Diabetes type 2, controlled Diabetes mellitus complication status: with unspecified complications Diabetes mellitus roasterman insulin use: with roasterman use Qualified Code(s): E11.8 - Type 2 diabetes mellitus with unspecified complications; Z79.4 - [facility] (current) use of insulin (2) Hypertension Hypertension type: essential hypertension Qualified Code(s): I10 - Essential (primary) hypertension
--- NOTE | 2020-04-15 20:52 | Procedure Note ---
Procedure Note Date of Service April 15, 2020 Procedure: Jail Indwelling Peripherally Inserted IV Catheter Placement Attending: Dr. Best APC: Luke Leigh PA-C Indication: Need for IV Access, Poor Vascular Access Anesthesia: None Verbal consent was obtained from patient prior to performing the procedure. A time-out was completed verifying correct patient, procedure, site, positioning, and implant(s) or special equipment if applicable. Utilizing bedside ultrasound, vascularity of the [facility] upper extremity was assessed. Vessel size was noted for appropriate catheter selection and skin was marked with gentle pressure. Patients RIGHT upper extremity was prepped and draped in the usual sterile fashion utilizing chlorhexidine. Ultrasound guidance was used to aid needle placement. A 22 g Endurance Catheter was introduced into the RIGHT Forearm vein under direct ultrasound guidance. Guide wire was easily deployed without resistance. Catheter was threaded over the guide wire without resistance and the entire apparatus was removed intact. Good venous blood return was noted in the catheter. The IV catheter was easily flushed with sterile saline flush. Sterile clave was attached to the end of the catheter and good blood return was again noted. Tourniquet was released. StatLock device and sterile dressing were applied. The patient tolerated the procedure well. Blood Loss: Minimal Complications: None Procedural Ultrasound Guidance: Procedure Date: 04/15/2020 Indication: Poor Vascular Access Attending: Dr. Best APC: Luke Leigh PA-C Artery/Veins Identified: YES Access confirmed in Vein with ultrasound: YES Complications: NONE Patient tolerated procedure: WELL Coding CPT Codes Tubes, Drains, and Vasc Access - Tubes, Drains, and Vasc Access: [id number] Venipuncture, Age 1/>Req phys skill, (sep proc), Dx/Tx (not rtn) ([id number]) [facility] [place] Procedure Codes (Charges) Tubes, Drains, and Vasc Access Procedure 1: Tubes, Drains, and Vasc Access: [id number] Venipuncture, Age 1/>Req phys skill, (sep proc), Dx/Tx (not rtn)
[2020-04-15] MEDS ORDERED: ICU PROTOCOL FOR HYPERGLYCEMIA PRN (21:00)
[2020-04-15 21:19] LABS: Appearance Urine Cloudy (Clear); Bacteria Urine Automated 4+ (Negative); Bilirubin Urine Negative (Negative); Blood Urine Trace (Negative); Color Urine Yellow; Epithelial Cell Urine Auto >30 /lpf (0-5); Glucose Urine UA Negative (Negative); Ketones Urine Negative (Negative); Leukocyte Esterase Urine 1+ (Negative); Nitrite Urine Negative (Negative); Protein Urine Negative (Negative); RBC Urine Automated 0-4 /hpf (0-4); Specific Gravity Urine 1.013 (1.000-1.030); Urobilinogen Urine Negative (Negative)
--- NOTE | 2020-04-15 22:50 | Gastrointestinal Consultation ---
Date of Consultation April 15, 2020 Assessment & Plan (1) Anemia: (2) GI bleed: with a history of peptic ulcer disease, concern for recurrent bleeding ulcer vs. AVM. currently being transfused, has received 2 units PRBC. Recs: --keep NPO --protonix drip --Proceed with EGD to further evaluate and tx --continue PRBC transfusion Thank you for allowing me to participate in the care of this patient History of Present Illness Attending Physician: Simin Braden MD 80 yo female here with symptomatic anemia. She was found after having a syncopal episode, has been having dark stools recently. Her hgb was noted to be 3.7 on admission with stable vital signs. She feels very tired at this time and weak. She has a hx PUD in the past and CKD. Also was noted to have several episodes of nonbloody emesis yesterday. Currently on protonix drip. vitals stable, labs reviewed. Has received 1 unit PRBC so far. Allergies Allergy/AdvReac Type Severity Reaction Status Date / Time Iodinated Contrast Media Allergy Severe Anaphylaxis Verified 04/15/20 16:42 mold Allergy Unknown UNKNOWN Verified 04/15/20 16:42 pollen extracts Allergy Unknown UNKNOWN Verified 04/15/20 16:42 Dust Allergy Unknown UNKNOWN Uncoded 04/15/20 16:42 Fungi Allergy Unknown UNKNOWN Uncoded 04/15/20 16:42 Home Medications Home Medications Medication Instructions Recorded Confirmed Type atorvastatin 20 mg tablet 20 mg PO DAILY 03/03/19 04/15/20 History multivitamin 1 tab PO DAILY 03/03/19 04/15/20 History levothyroxine 112 mcg PO QAM 05/07/19 04/15/20 History OneTouch Ultra Blue Test Strip #500 ea NS 09/04/19 04/15/20 Rx pen needle, diabetic 31 gauge x See Rx Instructions .ROUTE 09/04/19 04/15/20 Rx /16" .COMPLEX #500 ea furosemide 40 mg tablet 40 mg PO QAM 02/15/20 04/15/20 History insulin glargine 100 unit/mL (3 12 unit SUBCUT HS ml 02/15/20 04/15/20 History mL) subcutaneous pen quetiapine 400 mg tablet 400 mg PO HS 02/15/20 04/15/20 History Novolog Flexpen U-100 Insulin 100 40 unit SUBCUT .COMPLEX #45 ml NS 02/23/20 04/15/20 Rx unit/mL (3 mL) subcutaneous amlodipine 10 mg PO DAILY 04/15/20 04/15/20 History pantoprazole 40 mg PO DAILY 04/15/20 04/15/20 History Patient History Medical History (Updated 04/15/20 @ 19:37 by VALERIE Drummond) Anemia of chronic disease Anxiety Bipolar 1 disorder CKD (chronic kidney disease) stage 4, GFR 15-29 ml/min Diabetes type 2, controlled Disc degeneration, lumbar Fracture of parietal bone of skull GERD (gastroesophageal reflux disease) Jonathan's thyroiditis Hemorrhage, subdural, traumatic HLD (hyperlipidemia) Hyperparathyroidism Hypertension Hypothyroidism IBS (irritable bowel syndrome) Irritable bowel syndrome with constipation Osteopenia Pacemaker Subarachnoid, subdural, and extradural hemorrhage, following injury Surgical History H/O lumpectomy History of total abdominal hysterectomy and bilateral salpingo-oophorectomy Hx of cholecystectomy Family History Sister Colorectal cancer Other Cancer Diabetes History of hysterectomy Hypertension Stroke Social History Smoking Status: Never smoker Hx Alcohol Use: No Hx Substance Use: No Preferred Language: Mandarin Spanish Communication Ability: Effective Visual Impairment: No Limitations Hearing Ability: Normal Clicker Operator Required: No Beliefs That Will Affect Care: None marital status: Current Living Situation: Spouse Feels Safe at Home: Yes Assistive Devices: None Review of Systems Constitutional: no fever, no chills and no weight loss Eyes: as per Subjective / HPI Ear, Nose, Mouth, Throat: as per Subjective / HPI Respiratory: no dyspnea and no dyspnea on exertion Cardiovascular: no chest pain and no palpitations Gastrointestinal: as per Subjective / HPI Musculoskeletal: no joint pain and no swelling Integumentary: no rash and no lesions Neurologic: no numbness and no paresthesia Psychiatric: no depression and no anxiety Endocrine: no fatigue Hematologic / Lymphatic: no easy bleeding and no easy bruising Physical Exam Constitutional: WD/WN, vitals as above Eyes: EOM intact bilaterally Neck: normal visual inspection Respiratory: normal respiratory effort, lungs clear to auscultation Cardiovascular: RRR, no murmur, no edema Gastrointestinal (Abdomen): Inspection/Auscultation: abdomen normal to inspection; abdomen not distended Percussion/Palpation: abdomen soft; abdomen nontender and no hepatosplenomegaly Musculoskeletal: Extremities: no cyanosis Gait: normal gait Skin: no rashes, warm and dry Neurologic: moves all extremities Psychiatric: A+Ox3, euthymic affect Results & Data ([facility]) Vital Signs (Past 12 Hours) Vital Signs Temp Pulse Pulse Resp BP BP Pulse Ox 04/15/20 21:33 79 17 162/67 H 62 L 04/15/20 21:25 69 11 L 151/72 H 99 04/15/20 21:18 76 12 152/145 H 99 04/15/20 21:13 37 C 72 20 151/72 H 96 04/15/20 21:04 36.7 C 80 11 L 133/55 L 99 04/15/20 21:03 37 C 80 11 L 133/55 L 99 04/15/20 20:48 36.7 C 67 13 134/61 97 04/15/20 19:53 36.7 C 79 9 L 148/61 H 04/15/20 19:50 36.7 C 80 10 L 133/55 L 100 04/15/20 19:20 37.3 C 82 16 134/63 97 04/15/20 19:05 37.2 C 83 16 129/62 100 04/15/20 18:59 84 16 100 04/15/20 18:51 37.3 C 84 16 136/64 96 04/15/20 17:02 87 16 132/84 98 04/15/20 16:11 87 16 135/55 L 98 04/15/20 14:50 36.6 C 83 16 139/56 L 85 L PG Care Time/CCT Total # of Minutes Spent Total Time Spent with Patient: Total time spent is greater than 50% in coordination of care (as documented) at patient's floor/unit and/or counseling patient: Coding Level of Care Code 23077 Initial Inpt Care Lvl 3 Diagnoses Anemia D64.9 GI bleed K92.2
--- NOTE | 2020-04-15 22:57 | Electrocardiogram Report ---
Test Reason : Blood Pressure : / mmHG Vent. Rate : 081 BPM Atrial Rate : 081 BPM P-R Int : 148 ms QRS Dur : 086 ms QT Int : 410 ms P-R-T Axes : 063 038 126 degrees QTc Int : 476 ms Normal sinus rhythm Prolonged QT Abnormal ECG When compared with ECG of 19-JUN-2019 07:38, Sinus rhythm has replaced Electronic atrial pacemaker ST now depressed in Lateral leads T wave inversion more evident in Lateral leads Confirmed by Toan Alexandre ([id number]) on 04/15/2020 10:57:01 PM Referred By: SELF Confirmed By:Toan Alexandre
--- NOTE | 2020-04-15 23:02 | Anesthesiology Consultation ---
Date of Service April 15, 2020 Covid 19 negative today. The patient's hgb was 3.7. She has been transfused two units of PRBC and will be receiving a thrid unit. Assessment & Plan (1) Encounter for pre-operative examination: Chart Review Chart Review: Acceptable Risk for Surgery (elevated risk but necessary surgery) and Patient NOT seen in Pre Admission Testing Consults Requested none History Surgery Operation Date: 04/15/20 23:00 Proposed Procedures p Esophagogastroduodenoscopy - Nikolas Alvarado MD Operation Date: 04/16/20 07:30 Proposed Procedures p Esophagogastroduodenoscopy - Nikolas Alvarado MD Height/Weight Height: 5 ft 4 in Weight: 56.9 kg Allergies Allergy/AdvReac Type Severity Reaction Status Date / Time Iodinated Contrast Media Allergy Severe Anaphylaxis Verified 04/15/20 16:42 mold Allergy Unknown UNKNOWN Verified 04/15/20 16:42 pollen extracts Allergy Unknown UNKNOWN Verified 04/15/20 16:42 Dust Allergy Unknown UNKNOWN Uncoded 04/15/20 16:42 Fungi Allergy Unknown UNKNOWN Uncoded 04/15/20 16:42 Medications Home Medications Medication Instructions Recorded Confirmed Last Taken atorvastatin 20 mg tablet 20 mg PO DAILY 03/03/19 04/15/20 06/14/19 multivitamin 1 tab PO DAILY 03/03/19 04/15/20 06/14/19 levothyroxine 112 mcg PO QAM 05/07/19 04/15/20 06/14/19 OneTouch Ultra Blue Test Strip #500 ea NS 09/04/19 04/15/20 Unknown pen needle, diabetic 31 gauge x See Rx Instructions .ROUTE 09/04/19 04/15/20 Unknown 10/30" .COMPLEX #500 ea furosemide 40 mg tablet 40 mg PO QAM 02/15/20 04/15/20 Unknown insulin glargine 100 unit/mL (3 12 unit SUBCUT HS ml 02/15/20 04/15/20 Unknown mL) subcutaneous pen quetiapine 400 mg tablet 400 mg PO HS 02/15/20 04/15/20 Unknown Novolog Flexpen U-100 Insulin 100 40 unit SUBCUT .COMPLEX #45 ml NS 02/23/20 Unknown unit/mL (3 mL) subcutaneous amlodipine 10 mg PO DAILY 04/15/20 04/15/20 Unknown pantoprazole 40 mg PO DAILY 04/15/20 04/15/20 Unknown Active Medications Generic Name Dose Route Start Last Admin Trade Name Freq PRN Reason Stop Dose Admin Sodium Chloride 1,000 mls @ 125 mls/hr 04/15/20 15:15 04/15/20 15:05 Nss 1000ml IV 05/15/20 15:14 125 mls/hr .Q8H ROC Administration Pantoprazole Sodium 40 mg/ 100 mls @ 20 mls/hr 04/15/20 17:22 04/15/20 17:31 Dextrose IV 05/15/20 17:21 8 mg/hr Q5H ROC 20 mls/hr Administration 8 MG/HR NPO Last Intake of Fluids Comment: Unknown, patient is confused, [employer]INE [employer]SEM[employer]ER stated patient NPO. 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 Past Medical History Medical History Anemia of chronic disease Anxiety Bipolar 1 disorder CKD (chronic kidney disease) stage 4, GFR 15-29 ml/min Diabetes type 2, controlled Disc degeneration, lumbar Fracture of parietal bone of skull GERD (gastroesophageal reflux disease) Jonathan's thyroiditis Hemorrhage, subdural, traumatic HLD (hyperlipidemia) Hyperparathyroidism Hypertension Hypothyroidism IBS (irritable bowel syndrome) Irritable bowel syndrome with constipation Osteopenia Pacemaker Subarachnoid, subdural, and extradural hemorrhage, following injury Past Family History Family History Sister Colorectal cancer Other Cancer Diabetes History of hysterectomy Hypertension Stroke Past Surgical History Surgical History H/O lumpectomy History of total abdominal hysterectomy and bilateral salpingo-oophorectomy Hx of cholecystectomy Social History Smoking Status: Never smoker Hx Alcohol Use: No Hx Substance Use: No substance use type: does not use Physical Exam Vital Signs Last Vital Signs Temp 37 C 04/15/20 23:05 Pulse 80 04/15/20 23:05 Resp 11 L 04/15/20 23:05 BP 154/89 H 04/15/20 23:05 Pulse Ox 100 04/15/20 23:05 Testing Laboratory Results 04/15/20 16:18 04/15/20 16:18 PT 10.3 Seconds (9.0-12.0) 04/15/20 16:18 INR 1.0 (0.9-1.1) 04/15/20 16:18 Urine Color Yellow 04/15/20 20:41 Urine Appearance Cloudy (Clear) A 04/15/20 20:41 Urine pH 7.0 (4.5-7.5) 04/15/20 20:41 Ur Specific [place] 1.013 (1.000-1.030) 04/15/20 20:41 Urine Protein Negative (Negative) 04/15/20 20:41 Urine Glucose (UA) Negative (Negative) 04/15/20 20:41 Urine Ketones Negative (Negative) 04/15/20 20:41 Urine Nitrite Negative (Negative) 04/15/20 20:41 Ur Leukocyte Esterase 1+ (Negative) H 04/15/20 20:41 Urine WBC (Auto) 10-30 /hpf (0-5) H 04/15/20 20:41 Urine RBC (Auto) 0-4 /hpf (0-4) 04/15/20 20:41 U Hyaline Cast (Auto) 1-5 /lpf (0-5) 04/15/20 20:41 U Epithel Cells (Auto) >30 /lpf (0-5) H 04/15/20 20:41 Urine Bacteria (Auto) 4+ (Negative) H 04/15/20 20:41 Blood Type O Positive 04/15/20 16:42 Antibody Screen NEGATIVE 04/15/20 16:42 Electrocardiogram Date: 04/15/20 Findings: + NSR @ (61) and + T wave inversion (lateral leads) prolong QT Chest X-Ray Date: 04/15/20 chest 1V portable CLINICAL HISTORY: fall, weakness COMPARISON STUDY: 06/08/2019 FINDINGS: The cardiac and mediastinal contours remain stable. There is a right subclavian dual-chamber central venous pacemaker. There is no failure. There is no focal pulmonary consolidation. There are no pleural effusions.[ IMPRESSION: No active disease in the chest. ACT 112: Negative or not required by law. Electronically signed by: Flaco Briggs M.D. 04/15/2020 3:33 PM Dictated: 04/15/20 1532 Echocardiogram Date: 06/09/19 EF: 60-70 Other Findings: + diastolic dysfunction (grade 1) Other Testing CT SCAN OF THE BRAIN WITHOUT IV CONTRAST CLINICAL HISTORY: Trauma. Fall. COMPARISON STUDY: CT of the brain dated 06/09/2019. TECHNIQUE: Unenhanced axial CT scan of the brain is performed from the vertex to the skull base. A dose lowering technique was utilized adhering to the princip les of ALA. FINDINGS: Brain parenchyma: There are age-related involutional changes noting moderate subcortical and periventricular microangiopathic change. There is no hemorrhage, mass effect, or evidence of acute territorial ischemia by CT criteria. Espinoza- white matter differentiation is preserved. No extra-axial fluid collection is seen. Ventricles, sulci, cisterns: Prominent secondary to involutional change. Intracranial vasculature: There is atherosclerotic calcification of the cavernou s carotid and vertebral arteries. Calvarium: The skeletal structures are osteopenic. No depressed calvarial fracture is identified. Sinuses and mastoids: The visualized paranasal sinuses are clear. The mastoid air cells are well pneumatized. Orbits: The bony orbits are grossly intact. There are bilateral ocular lens implants. IMPRESSION: There is no hemorrhage, mass effect, or evidence of acute territorial ischemia by CT criteria. ACT 112: Negative or not required by law. Electronically signed by: Josesito Schmitt M.D. 04/15/2020 4:51 PM Dictated: 04/15/20 1649
[2020-04-15] MEDS ORDERED: diphenhydrAMINE 50 MG/ML VIAL IV STA (23:17)
[2020-04-15] MEDS ORDERED: diphenhydrAMINE 50 MG/ML VIAL ONE (23:24)
[2020-04-15] MEDS ORDERED: PROPOFOL IV EMULSION 10 MG/ML 20 ML VIAL IV ONE (23:51)
[2020-04-16] MEDS ORDERED: PROPOFOL IV EMULSION 10 MG/ML 20 ML VIAL IV ONE (00:15)
--- NOTE | 2020-04-16 00:24 | Procedure Note ---
Procedure Note Date of Service April 16, 2020 GI brief procedure note/post op note EGD findings: large duodenal ulcer in the duodenal sweep, with a visible vessel present. This is the source of her GI bleeding and anemia. Treated with 1:10,000 epinephrine 5 cc, and closed with clip for hemostasis. Recs: protonix drip for 72 hours, then protonix 40 mg BID for 3 months minimum NPO tonight, complete PRBC transfusions can advance to clear liquid diet in the morning if stable supportive care, rest as per primary team Nikolas Alvarado MD Gastroenterology Coding
--- NOTE | 2020-04-16 00:31 | GI REPORT ---
Patient Name: Noe Lanier Procedure Date: 04/15/2020 10:58 PM Date of : 1940 Admit Type: Inpatient Age: 80 Gender: Female Attending MD: Nikolas Alvarado MD Procedure: Upper GI endoscopy Providers: Nikolas Alvarado MD Referring MD: Simin Braden Indications: Acute post hemorrhagic anemia, Melena Medicines: Monitored Anesthesia Care Complications: No immediate complications. Estimated blood loss: None. Estimated Blood Loss: Estimated blood loss: none. Procedure: Pre-Anesthesia Assessment: - Prior Anticoagulants: The patient has taken no previous anticoagulant or antiplatelet agents. - ASA Grade Assessment: III - A patient with severe systemic disease. After obtaining informed consent, the endoscope was passed under direct vision. Throughout the procedure, the patient's blood pressure, pulse, and oxygen saturations were monitored continuously. The Endoscope was introduced through the mouth, and advanced to the second part of duodenum. The upper GI endoscopy was accomplished without difficulty. The patient tolerated the procedure well. Findings: LA Grade A (one or more mucosal breaks less than 5 mm, not extending between tops of 2 mucosal folds) esophagitis with no bleeding was found. The entire examined stomach was normal. Hematin (altered blood/csulsu-[id number]-[id number] material) was found in the second portion of the duodenum. One non-bleeding cratered duodenal ulcer with a visible vessel was found in the duodenal bulb. Area was successfully injected with 5 mL of a 1:10,000 solution of epinephrine for hemostasis. For hemostasis, one hemostatic clip was successfully placed. There was no bleeding at the end of the procedure. Estimated blood loss: none. Impression: - LA Grade A esophagitis. - Normal stomach. - Blood in the second portion of the duodenum. - Non-bleeding duodenal ulcer with a visible vessel. Injected. Clip was placed. - No specimens collected. Recommendation: - Return patient to [facility] for ongoing care. - NPO today. can advance to clear liquid diet in the morning if stable. - complete PRBC transfusion - complete 72 hours of protonix drip, then switch to protonix 40 mg BID for 3 months minimum - supportive care, rest as per primary team Nikolas Alvarado MD 04/16/2020 12:30:37 AM This report has been signed electronically. Note Initiated On: 04/15/2020 10:58 PM Number of Addenda: 0 I attest to the content of the Intraoperative Record and orders documented therein, exceptions below {[id number]}
--- NOTE | 2020-04-16 00:35 | Anesthesiology Progress Note ---
Date of Service April 16, 2020 Anesthesia Post Procedure Vital Signs Vital Signs: Temp Pulse Pulse Resp BP BP Pulse Ox 04/15/20 23:23 37 C 99 H 28 H 105/24 L 100 04/15/20 23:21 37 C 92 H 9 L 105/24 L 100 04/15/20 23:05 37 C 80 11 L 154/89 H 100 04/15/20 21:45 37 C 70 14 151/82 H 100 04/15/20 21:33 79 17 162/67 H 62 L 04/15/20 21:25 69 11 L 151/72 H 99 04/15/20 21:18 76 12 152/145 H 99 04/15/20 21:13 37 C 72 20 151/72 H 96 04/15/20 21:04 36.7 C 80 11 L 133/55 L 99 04/15/20 21:03 37 C 80 11 L 133/55 L 99 04/15/20 20:48 36.7 C 67 13 134/61 97 04/15/20 19:53 36.7 C 79 9 L 148/61 H 04/15/20 19:50 36.7 C 80 10 L 133/55 L 100 04/15/20 19:40 36.7 C 80 11 L 133/55 L 100 04/15/20 19:20 37.3 C 82 16 134/63 97 04/15/20 19:05 37.2 C 83 16 129/62 100 04/15/20 18:59 84 16 100 04/15/20 18:51 37.3 C 84 16 136/64 96 04/15/20 17:02 87 16 132/84 98 04/15/20 16:11 87 16 135/55 L 98 04/15/20 14:50 36.6 C 83 16 139/56 L 85 L Transfer of Care Handoff Completed per policy Notes Mental Status: alert / awake / arousable Patient Amnestic to Procedure: Yes Nausea / Vomiting: adequately controlled Pain: adequately controlled Airway Patency, RR, SpO2: stable & adequate BP & HR: stable & adequate Hydration State: stable & adequate Anesthetic Complications: no major complications apparent and Pt Satisfied with anesthetic care Notes: The patient is awake and comfortable in the ICU. Her vital signs are stable. Report was given to Luke Leigh in the ICU.
--- NOTE | 2020-04-16 01:18 | Communication Note ---
Date of Service: April 15, 2020 Two-physician emergency consent: Procedure: EGD under anesthesia for emergency, GI bleed Patient has no medical power of deputy prosecuting attorney, currently she is not able to consent for herself due to her illness. Spoke to her legal/financial power of deputy prosecuting attorney at [facility], Nivia Lew, who confirmed she has no medical power of deputy prosecuting attorney. Her children are estranged and her has dementia. At this time, will proceed with emergent EGD under anesthesia, two-physician consent with Dr. Alvarado and Dr. Sweeney. Nikolas Alvarado MD Gastroenterology
[2020-04-16] MEDS: QUEtiapine FUMARATE 200 MG TAB PO SCH ×2 (01:25→21:03)
[2020-04-16] MEDS: SODIUM CHLORIDE 0.9% 1000ML 1,000 ML IV SCH ×3 (02:15→16:21)
[2020-04-16 02:23] LABS: Hematocrit (blood only) 23.6 % (37-47); Mean Corpuscular Hemoglobin 31.7 pg (25-34); Mean Corpuscular Hgb Conc 33.9 g/dL (32-36); Mean Corpuscular Volume 93.7 fL (80-100); Mean Platelet Volume 11.8 fL (7.4-10.4); Platelet Count 101 K/uL (130-400); RDW Coefficient of Variation 15.3 % (11.5-14.5); RDW Standard Deviation 51.4 fL (36.4-46.3); Red Blood Count 2.52 M/uL (4.2-5.4); White Blood Count 12.04 K/uL (4.8-10.8)
[2020-04-16 02:43] LABS: BUN Creatinine Ratio 36.1 (10-20); Calcium 7.3 mg/dl (8.5-10.1); Creatinine Clr Calc Pharmacy 15.3 ml/min; Est GFR (African American) 20.6; Est GFR (Non-African American) 17.7; Potassium 4.7 mmol/L (3.5-5.1)
[2020-04-16] MEDS: PANTOprazole 40 MG in DEXTROSE 5% 100 ML IV SCH ×5 (02:46→21:24)
--- NOTE | 2020-04-16 03:50 | Procedure Note ---
Procedure Note Date of Service April 16, 2020 Procedure: Mcc Indwelling Peripherally Inserted IV Catheter Placement Attending: Dr. Best APC: Luke Leigh PA-C Indication: Need for IV Access, Poor Vascular Access Anesthesia: None Verbal consent was obtained from patient prior to performing the procedure. A time-out was completed verifying correct patient, procedure, site, positioning, and implant(s) or special equipment if applicable. Utilizing bedside ultrasound, vascularity of the LEFT upper extremity was assessed. Vessel size was noted for appropriate catheter selection and skin was marked with gentle pressure. Patients LEFT upper extremity was prepped and draped in the usual sterile fashion utilizing chlorhexidine. Ultrasound guidance was used to aid needle placement. A 20 g Endurance Catheter was introduced into the LEFT cephalic vein under direct ultrasound guidance. Guide wire was easily deployed without resistance. Catheter was threaded over the guide wire without resistance and the entire apparatus was removed intact. Good venous blood return was noted in the catheter. The IV catheter was easily flushed with sterile saline flush. Sterile clave was attached to the end of the catheter and good blood return was again noted. Tourniquet was released. StatLock device and sterile dressing were applied. The patient tolerated the procedure well. Blood Loss: Minimal Complications: None Procedural Ultrasound Guidance: Procedure Date: 04/16/2020 Indication: Poor Vascular Access Attending: Dr. Best APC: Luke Leigh PA-C Artery/Veins Identified: YES Access confirmed in Vein with ultrasound: YES Complications: NONE Patient tolerated procedure: WELL Coding
--- NOTE | 2020-04-16 06:40 | Critical Care Progress Note ---
Date of Service April 16, 2020 Assessment & Plan (1) Admitted to intensive care unit: Reason Critically Ill: 80 yo F who presented after being found down in her home for an unknown period of time, found to be significantly anemic with a hemoglobin of 3.7 on admission after a syncopal fall. She was directly sent to the ICU for close monitoring and transfusion. On arrival to the critical care until, two ultrasound guided peripheral venous lines were placed. Overnight she had an EGD, which revealed an ulcer in the duodenum as the source of the bleed; it was injected with epinephrine and clipped. She was transfused 3 units of pRBCs and her hemoglobin gold appropriately. She has remained hemodynamically stable; currently on a protonix drip. If hemoglobin continues to remain stable, patient may be downgrade to medical floor today. Neuro: * Hx of Bipolar disorder - continue home quetiapine - head CT on admission showing on evidence of acute bleed or fracture - C-spine CT on admission showing no evidence of acute fracture or subluxation - Delirium precautions Cardiac: * Elevated troponin - trop elevated to 0.036 on admission - likely secondary to demand ischemia in the setting of significant anemia - ST segment depression present on admission EKG - patient denies any CP - continuous surveillance system monitor Respiratory: - no history of underlying lung disease - patient currently saturation 96% on RA GI: * Upper GI bleed - EGD overnight showed one, non-bleeding duodenal ulcer with a dilated vessel. It was injected with epinephrine and clipped - upper GI source consistent with report of arleen bosch BM on day of presentation - continue protonix drip for 72 hours, then transition to protonix 40 mg BID for 3 months minimum * Hx gastric ulcers - patient was on protonix at home - clear liquid diet this morning, advance as tolerated RENAL/LYTES: * YEVGENIY on underlying CKD - resolved - Cr 2.89 on admission, down to 2.45 today - baseline Cr appears to be ~ 2.4-2.8 - suspect pre-renal etiology due to renal hypoperfusion - renally dose meds as appropriate - trend BMP * Concern for rhabdomyolysis - patient found down at home by caregivers - CK 479 on admission - continue normal saline at 125 mls/hr. If patient tolerates PO intake, will reduce IV fluid rate - ICU electrolyte replacement protocol : - De León - monitor stick Is/Os ENDO: * Insulin dependent type II diabetes mellitus - ICU protocol for hypoglycemia - DM2 carb consistent diet - A1c 5.5 - of note, patient is not on YANY/ARB * Hypothyroidism - TSH low at 0.019 on admission - continue home dose levothyroxine HEME: * Anemia - Hgb 3.7 on admission, improved to 8.0 after transfusion of 3 units pRBCs - upper GI bleed source identified on EGD, s/p epi injection and clipping - anemia of chronic disease on patient's problem list, baseline Hgb unknown at this time - patient reports never having a colonoscopy - trend H+H q6h ID: * Leukocytosis - WBC mildly elevated to 12 - suspect reactive to acute physiological stress - procal at 0.47 (although patient does have CKD) - CXR without evidence of consolidation - UA with 4+ bacteria, 1+ LE, 10-30 WBCs, neg nitrates. Urine culture pending. - MRSA nasal swab positive --> placed on contact precautions. LINES/IV ACCESS: 2 US guided PIV, de león CODE STATUS: Full DVT PROPHYLAXIS: SCDs, chemoprophylaxis contraindicated in the setting of profound anemia Dispo: ICU. Case management consulted. Thank you for allowing us to participate in the care of this patient. Please refer to my attending physician's documentation for any further recommendations. Admission and Anticipated Discharge Date Admission Date: April 15, 2020 Supervising Physician Co-Signing Physician Notes Dr Breaux was the resident-physician during care of patient. I separately evaluated patient for reyna portions of the history and the exam. I was present during the critical portion of medical decision making, and I discussed the case with the resident. I generally agree with the findings and plan except for any additions/exceptions noted. Patient seen and examined at bedside. She states she is feeling better. No CP, No SOB, No ZAVALA, No Dizziness. No BM since coming to the hospital. Patient had emergent EGD done late yesterday night 04/15/2020 which showed large duodenal ulcer along with visible vessel. It was treated with epi. Continue with Protonix drip for total of 72 hours followed by 40 mg twice daily for 3 months. Monitor H&H every 6 hours for at least 2 more time. Transfuse if hemoglobin is less than 7 Social work consult to help take care of patient as well as patient's who has dementia. Clear liquid diet advance as tolerated. Patient has CKD. Her creatinine is around 2.3-2.4. Once the patient is started thing to tolerate diet will discontinue IV fluids. EDMUND De León. Urine culture growing greater than 100,000 gram-negative bacilli. Patient has history of Pseudomonas aeruginosa pansensitive in the urine. Patient's QTC is 476. We will give Rocephin in the hospital. Can change to p.o. cefpodoxime or cefdinir on discharge. Procalcitonin was 0.47 when patient was admitted with history of CKD. Chest x- ray clean at the time of presentation. We will wait for 1 more H&H. If it is stable patient can be downgraded to medical floor. Subjective Overnight patient was scoped. She says she is feeling much better now. She denies any chest pain or SOB. She says she does not know how she managed to get this sick without noticing. She again denies seeing any blood in her BMs She is very concerned about how her is doing at home - she wants to speak with their caregiver today for an update. Review of Systems Constitutional: + weakness Cardiovascular: no lightheadedness Genitourinary: no dysuria, no urinary frequency and no urinary urgency Physical Exam Constitutional: well developed, well nourished and cooperative; no acute distress Eyes: + anicteric sclerae and PERRL ENMT: external ear and nose normal, oropharynx normal Neck: normal visual inspection and trachea midline Respiratory: normal respiratory effort Auscultation: + crackles (Minimal bilateral lower lobes) Cardiovascular: Rate/Rhythm: regular rate and regular rhythm Heart Sounds: normal S1, normal S2 and + murmur (systolic ejection murmur ) Extremities: no pedal edema Chest (Breasts): Chest: + pacemaker Gastrointestinal (Abdomen): Inspection/Auscultation: normal bowel sounds Percussion/Palpation: + abdomen tender (reports mild tenderness diffusely ) and abdomen soft; no guarding Skin: + pallor; no ecchymosis Neurologic: moves all extremities and awake; no focal motor deficits Psychiatric: Orientation: alert, oriented to person and oriented to place; + not oriented to time Genitourinary: De León catheter in place, draining yellow urine without visible blood clots Results & Data Results & Data ([facility]) Vital Signs (Past 12 Hours) Vital Signs Temp Pulse Pulse Resp BP BP Pulse Ox 04/16/20 00:40 79 22 163/78 H 96 04/16/20 00:32 79 81 22 159/73 H 159/73 H 95 04/16/20 00:24 36.4 C L 138/89 138/89 04/16/20 00:00 80 04/15/20 23:33 80 18 169/67 H 04/15/20 23:30 79 17 178/64 H 04/15/20 23:23 37 C 99 H 28 H 105/24 L 100 04/15/20 23:21 37 C 92 H 9 L 105/24 L 100 04/15/20 23:19 83 22 158/79 H 100 04/15/20 23:10 85 15 105/24 L 04/15/20 23:05 37 C 80 11 L 154/89 H 100 04/15/20 23:04 88 14 101/85 04/15/20 22:48 83 9 L 160/64 H 94 04/15/20 22:33 80 13 154/89 H 99 04/15/20 22:18 82 4 L 144/68 H 99 04/15/20 22:03 79 13 160/68 H 99 04/15/20 21:48 72 19 151/82 H 97 04/15/20 21:45 37 C 70 14 151/82 H 100 04/15/20 21:33 79 17 162/67 H 62 L 04/15/20 21:25 69 11 L 151/72 H 99 04/15/20 21:18 76 12 152/145 H 99 04/15/20 21:14 37 C 72 20 151/72 H 96 04/15/20 21:13 37 C 72 20 151/72 H 96 04/15/20 21:12 37 C 72 20 151/72 H 96 04/15/20 21:04 36.7 C 80 11 L 133/55 L 99 04/15/20 21:03 37 C 80 11 L 133/55 L 99 04/15/20 20:48 36.7 C 67 13 134/61 97 04/15/20 19:53 36.7 C 79 9 L 148/61 H 04/15/20 19:50 36.7 C 80 10 L 133/55 L 100 04/15/20 19:40 36.7 C 80 11 L 133/55 L 100 04/15/20 19:20 37.3 C 82 16 134/63 97 04/15/20 19:05 37.2 C 83 16 129/62 100 04/15/20 18:59 84 16 100 04/15/20 18:51 37.3 C 84 16 136/64 96 04/16/20 06:44 04/16/20 02:11 Resident Activity Tracking Resident Involvement: Resident Care Provided Care Provided: Adult Hospital Medicine
[2020-04-16 06:56] LABS: Hematocrit (blood only) 23.1 % (37-47); Hemoglobin 7.7 g/dL (12.0-16.0)
[2020-04-16] MEDS: LEVOTHYROXINE SODIUM 112 MCG TABLET PO SCH (06:59)
[2020-04-16 07:28] LABS: Estimated Average Glucose 111 mg/dl; Hemoglobin A1C 5.5 % (4.5-5.6)
[2020-04-16] MEDS: amLODIPine BESYLATE 5 MG TAB PO SCH (08:30)
[2020-04-16] MEDS: ATORVASTATIN 10 MG TAB PO SCH (08:30)
[2020-04-16] MEDS ORDERED: DEXTROSE 50% 50 ML SYRINGE IV PRN (08:47)
[2020-04-16] MEDS ORDERED: GLUCAGON FOR INJ 1 MG VIAL SQ PRN (08:47)
[2020-04-16] MEDS ORDERED: GLUCOSE 10 TABS/TUBE PO PRN (08:47)
[2020-04-16] MEDS ORDERED: CARBOHYDRATES FOR HYPOGLYCEMIA PO PRN (08:47)
[2020-04-16] MEDS ORDERED: GLUCOSE 40% GEL 15 GM TUBE PO PRN (08:47)
[2020-04-16] MEDS ORDERED: FUROSEMIDE 40 MG TAB PO SCH (09:00)
--- NOTE | 2020-04-16 10:48 | Billing Data ---
Date of Service April 16, 2020 Coding Level of Care Code 22722 Subseq Hosp Care Lvl 3
--- NOTE | 2020-04-16 11:38 | Hospitalist Progress Note ---
Date of Service April 16, 2020 Assessment & Plan (1) Anemia: (2) GI bleed: Patient presented from home with a suspected syncopal event and fall, reported black stool the day before In the ED, Hgb found to be 3.7 S/P EGD which showed blood in duodenum, nonbleeding duodenal ulcer with visible vessel that was injected and clipped. Continue IV PPI drip for 72h S/p 3PRBC Last Hb is 7.7 this morning Monitor Hb and transfuse prn to keep >7 Continue clears and will advance as tolerated (3) CKD (chronic kidney disease) stage 4, GFR 15-29 ml/min: Baseline creatinine around 2.4 Cr was 2.8 on admission YEVGENIY on CKD4 YEVGENIY resolved. Cr is 2.45 today Monitor and avoid nephrotoxins (4) Diabetes type 2, controlled: Hgb A1c 8.5 05/2019 Hb A1c today is 5.5 Monitor blood glucose Lantus and NovoLog per protocol while hospitalized (5) Hypertension: BP currently in 150s-160s systolic Will continue to hold amlodipine and furosemide for now (6) Bipolar 1 disorder: Continue Seroquel (7) Hypothyroidism: TSH 0.019, free T4 0.9 Continue levothyroxine Urine culture growing GNR Started on ceftriaxone for UTI Follow up speciation and sensitivities (8) DVT prophylaxis: SCDs due to anemia/GI bleeding CM to help with at home as patient is worried about him due to his dementia Admission and Anticipated Discharge Date Admission Date: April 15, 2020 Subjective Patient seen and examined. Patient got 3 PRBC overnight S/P EGD which showed blood in duodenum, nonbleeding duodenal ulcer with visible vessel that was injected and clipped. Hb stable so far. Patient denied any complaints. Reports only feeling sad and worried about her who has dementia No chest pain, SOB, SIMMONS, palpitation No Dizziness, abd pain, nausea or vomiting Physical Exam Constitutional: + well hydrated; no acute distress Eyes: PERRL, conjunctivae normal, anicteric sclerae ENMT: external ear and nose normal, oropharynx normal Respiratory: normal respiratory effort, lungs clear to auscultation Cardiovascular: RRR, no murmur, no edema Gastrointestinal (Abdomen): normal bowel sounds, soft, nontender, no hepatosplenomegaly Musculoskeletal: no cyanosis or clubbing, extremities motor strength 5/5 Neurologic: PERRL, EOMI, accommodation nl, no face palsy, no dysarthria Psychiatric: Orientation: alert and oriented x 3 Affect: + tearful affect (Crying stating she is worried about at home with dementia) Genitourinary: No CVA tenderness Results & Data Results & Data ([facility]) Vital Signs (Past 12 Hours) Vital Signs Temp Pulse Pulse Resp BP BP Pulse Ox 04/16/20 08:00 76 04/16/20 00:40 79 22 163/78 H 96 04/16/20 00:32 79 81 22 159/73 H 159/73 H 95 04/16/20 00:24 36.4 C L 138/89 138/89 04/16/20 00:00 80 Laboratory Results Laboratory Results - last 24 hr 04/15/20 04/15/20 04/15/20 16:18 16:18 16:18 WBC 11.27 H RBC 1.19 L Hgb 3.7 L* Hct 11.9 L* MCV 100.0 MCH 31.1 MCHC 31.1 L RDW Std Deviation 50.8 H RDW Coeff of Tim 14.6 H Plt Count 269 MPV 10.9 H Immature Gran % (Auto) 0.4 Neut % (Auto) 79.7 Lymph % (Auto) 15.2 [place] % (Auto) 4.5 Eos % (Auto) 0.0 Baso % (Auto) 0.2 Neut # (Auto) 8.99 H Lymph # (Auto) 1.71 [place] # (Auto) 0.51 Eos # (Auto) 0.00 Baso # (Auto) 0.02 Immature Gran # (Auto) 0.04 H Absolute Nucleated RBC 0.04 H Nucleated RBC % (auto) 0.4 Polychromasia 1+ PT 10.3 INR 1.0 Sodium 135 L Potassium 4.2 Chloride 102 Carbon Dioxide 29 Anion Gap 4.0 BUN 95 H Creatinine 2.89 H Est Cr Clr Drug Dosing 13.0 Est GFR ( Amer) 16.8 Est GFR (Non-Af Amer) 14.5 BUN/Creatinine Ratio 32.8 H Glucose 236 H POC Glucose Estimat Average Glucose Hemoglobin A1c Calcium 7.7 L Magnesium 5.6 H* Total Bilirubin 0.2 AST 24 ALT 15 Alkaline Phosphatase 134 H Total Creatine Kinase Troponin I 0.036 NT-Pro-B Natriuret Pep 2471 H Total Protein 5.5 L Albumin 2.7 L Globulin 2.8 Albumin/Globulin Ratio 1.0 Lipase 115 Procalcitonin TSH 0.019 L Free T4 0.90 Urine Color Urine Appearance Urine pH Ur Specific Minto Urine Protein Urine Glucose (UA) Urine Ketones Urine Blood Urine Nitrite Urine Bilirubin Urine Urobilinogen Ur Leukocyte Esterase Urine WBC (Auto) Urine RBC (Auto) U Hyaline Cast (Auto) U Epithel Cells (Auto) Urine Bacteria (Auto) Ur Renal Epithelial Cell Nasal Screen MRSA (PCR) COVID-19 Eval Order SARS-CoV-2, RNA, NAAT Blood Type Antibody Screen Crossmatch 04/15/20 04/15/20 04/15/20 16:18 16:42 18:00 WBC RBC Hgb Hct MCV MCH MCHC RDW Std Deviation RDW Coeff of Tim Plt Count MPV Immature Gran % (Auto) Neut % (Auto) Lymph % (Auto) [place] % (Auto) Eos % (Auto) Baso % (Auto) Neut # (Auto) Lymph # (Auto) [place] # (Auto) Eos # (Auto) Baso # (Auto) Immature Gran # (Auto) Absolute Nucleated RBC Nucleated RBC % (auto) Polychromasia PT INR Sodium Potassium Chloride Carbon Dioxide Anion Gap BUN Creatinine Est Cr Clr Drug Dosing Est GFR ( Amer) Est GFR (Non-Af Amer) BUN/Creatinine Ratio Glucose POC Glucose Estimat Average Glucose Hemoglobin A1c Calcium Magnesium Total Bilirubin AST ALT Alkaline Phosphatase Total Creatine Kinase 479 H Troponin I NT-Pro-B Natriuret Pep Total Protein Albumin Globulin Albumin/Globulin Ratio Lipase Procalcitonin 0.47 TSH Free T4 Urine Color Urine Appearance Urine pH Ur Specific Minto Urine Protein Urine Glucose (UA) Urine Ketones Urine Blood Urine Nitrite Urine Bilirubin Urine Urobilinogen Ur Leukocyte Esterase Urine WBC (Auto) Urine RBC (Auto) U Hyaline Cast (Auto) U Epithel Cells (Auto) Urine Bacteria (Auto) Ur Renal Epithelial Cell Nasal Screen MRSA (PCR) COVID-19 Eval Order SARS-CoV-2, RNA, NAAT Blood Type O Positive Antibody Screen NEGATIVE Crossmatch See Detail 04/15/20 04/15/20 04/15/20 20:41 20:41 20:41 WBC RBC Hgb Hct MCV MCH MCHC RDW Std Deviation RDW Coeff of Tim Plt Count MPV Immature Gran % (Auto) Neut % (Auto) Lymph % (Auto) [place] % (Auto) Eos % (Auto) Baso % (Auto) Neut # (Auto) Lymph # (Auto) [place] # (Auto) Eos # (Auto) Baso # (Auto) Immature Gran # (Auto) Absolute Nucleated RBC Nucleated RBC % (auto) Polychromasia PT INR Sodium Potassium Chloride Carbon Dioxide Anion Gap BUN Creatinine Est Cr Clr Drug Dosing Est GFR ( Amer) Est GFR (Non-Af Amer) BUN/Creatinine Ratio Glucose POC Glucose Estimat Average Glucose Hemoglobin A1c Calcium Magnesium Total Bilirubin AST ALT Alkaline Phosphatase Total Creatine Kinase Troponin I NT-Pro-B Natriuret Pep Total Protein Albumin Globulin Albumin/Globulin Ratio Lipase Procalcitonin TSH Free T4 Urine Color Yellow Urine Appearance Cloudy A Urine pH 7.0 Ur Specific Minto 1.013 Urine Protein Negative Urine Glucose (UA) Negative Urine Ketones Negative Urine Blood Trace H Urine Nitrite Negative Urine Bilirubin Negative Urine Urobilinogen Negative Ur Leukocyte Esterase 1+ H Urine WBC (Auto) 10-30 H Urine RBC (Auto) 0-4 U Hyaline Cast (Auto) 1-5 U Epithel Cells (Auto) >30 H Urine Bacteria (Auto) 4+ H Ur Renal Epithelial Cell Not Reportable Nasal Screen MRSA (PCR) COVID-19 Eval Order Covid19 IDNow atMMIC SARS-CoV-2, RNA, NAAT NEGATIVE Blood Type Antibody Screen Crossmatch 04/15/20 04/16/20 04/16/20 20:41 02:11 02:11 WBC 12.04 H RBC 2.52 L Hgb 8.0 L D Hct 23.6 L MCV 93.7 D MCH 31.7 MCHC 33.9 RDW Std Deviation 51.4 H RDW Coeff of Tim 15.3 H Plt Count 101 L D MPV 11.8 H Immature Gran % (Auto) Neut % (Auto) Lymph % (Auto) [place] % (Auto) Eos % (Auto) Baso % (Auto) Neut # (Auto) Lymph # (Auto) [place] # (Auto) Eos # (Auto) Baso # (Auto) Immature Gran # (Auto) Absolute Nucleated RBC Nucleated RBC % (auto) Polychromasia PT INR Sodium 138 Potassium 4.7 Chloride 106 Carbon Dioxide 26 Anion Gap 6.0 BUN 88 H Creatinine 2.45 H D Est Cr Clr Drug Dosing 15.3 Est GFR ( Amer) 20.6 Est GFR (Non-Af Amer) 17.7 BUN/Creatinine Ratio 36.1 H Glucose 228 H POC Glucose Estimat Average Glucose Hemoglobin A1c Calcium 7.3 L Magnesium Total Bilirubin AST ALT Alkaline Phosphatase Total Creatine Kinase Troponin I NT-Pro-B Natriuret Pep Total Protein Albumin Globulin Albumin/Globulin Ratio Lipase Procalcitonin TSH Free T4 Urine Color Urine Appearance Urine pH Ur Specific Minto Urine Protein Urine Glucose (UA) Urine Ketones Urine Blood Urine Nitrite Urine Bilirubin Urine Urobilinogen Ur Leukocyte Esterase Urine WBC (Auto) Urine RBC (Auto) U Hyaline Cast (Auto) U Epithel Cells (Auto) Urine Bacteria (Auto) Ur Renal Epithelial Cell Nasal Screen MRSA (PCR) Positive A COVID-19 Eval Order SARS-CoV-2, RNA, NAAT Blood Type Antibody Screen Crossmatch 04/16/20 04/16/20 04/16/20 06:44 06:44 09:09 WBC RBC Hgb 7.7 L Hct 23.1 L MCV MCH MCHC RDW Std Deviation RDW Coeff of Tim Plt Count MPV Immature Gran % (Auto) Neut % (Auto) Lymph % (Auto) [place] % (Auto) Eos % (Auto) Baso % (Auto) Neut # (Auto) Lymph # (Auto) [place] # (Auto) Eos # (Auto) Baso # (Auto) Immature Gran # (Auto) Absolute Nucleated RBC Nucleated RBC % (auto) Polychromasia PT INR Sodium Potassium Chloride Carbon Dioxide Anion Gap BUN Creatinine Est Cr Clr Drug Dosing Est GFR ( Amer) Est GFR (Non-Af Amer) BUN/Creatinine Ratio Glucose POC Glucose 211 H Estimat Average Glucose 111 Hemoglobin A1c 5.5 Calcium Magnesium Total Bilirubin AST ALT Alkaline Phosphatase Total Creatine Kinase Troponin I NT-Pro-B Natriuret Pep Total Protein Albumin Globulin Albumin/Globulin Ratio Lipase Procalcitonin TSH Free T4 Urine Color Urine Appearance Urine pH Ur Specific Minto Urine Protein Urine Glucose (UA) Urine Ketones Urine Blood Urine Nitrite Urine Bilirubin Urine Urobilinogen Ur Leukocyte Esterase Urine WBC (Auto) Urine RBC (Auto) U Hyaline Cast (Auto) U Epithel Cells (Auto) Urine Bacteria (Auto) Ur Renal Epithelial Cell Nasal Screen MRSA (PCR) COVID-19 Eval Order SARS-CoV-2, RNA, NAAT Blood Type Antibody Screen Crossmatch 04/16/20 11:16 WBC RBC Hgb Hct MCV MCH MCHC RDW Std Deviation RDW Coeff of Tim Plt Count MPV Immature Gran % (Auto) Neut % (Auto) Lymph % (Auto) [place] % (Auto) Eos % (Auto) Baso % (Auto) Neut # (Auto) Lymph # (Auto) [place] # (Auto) Eos # (Auto) Baso # (Auto) Immature Gran # (Auto) Absolute Nucleated RBC Nucleated RBC % (auto) Polychromasia PT INR Sodium Potassium Chloride Carbon Dioxide Anion Gap BUN Creatinine Est Cr Clr Drug Dosing Est GFR ( Amer) Est GFR (Non-Af Amer) BUN/Creatinine Ratio Glucose POC Glucose 300 H Estimat Average Glucose Hemoglobin A1c Calcium Magnesium Total Bilirubin AST ALT Alkaline Phosphatase Total Creatine Kinase Troponin I NT-Pro-B Natriuret Pep Total Protein Albumin Globulin Albumin/Globulin Ratio Lipase Procalcitonin TSH Free T4 Urine Color Urine Appearance Urine pH Ur Specific Minto Urine Protein Urine Glucose (UA) Urine Ketones Urine Blood Urine Nitrite Urine Bilirubin Urine Urobilinogen Ur Leukocyte Esterase Urine WBC (Auto) Urine RBC (Auto) U Hyaline Cast (Auto) U Epithel Cells (Auto) Urine Bacteria (Auto) Ur Renal Epithelial Cell Nasal Screen MRSA (PCR) COVID-19 Eval Order SARS-CoV-2, RNA, NAAT Blood Type Antibody Screen Crossmatch (1) Diabetes type 2, controlled Diabetes mellitus complication status: with unspecified complications Diabetes mellitus usp insulin use: with usp use Qualified Code(s): E11.8 - Type 2 diabetes mellitus with unspecified complications; Z79.4 - 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
[2020-04-16] MEDS: cefTRIAXone SODIUM 1,000 MG in DEXTROSE 5% 50 ML IV SCH (11:46)
[2020-04-16] MEDS: INSULIN ASPART 100 UNITS/ML 3 ML PEN SC SCH ×3 (11:47→21:10)
[2020-04-16 12:23] LABS: Hematocrit (blood only) 26.2 % (37-47); Hemoglobin 8.8 g/dL (12.0-16.0)
[2020-04-16] MEDS ORDERED: Nursing to Pharmacy Communication SCH (14:15)
--- NOTE | 2020-04-16 14:22 | Gastroenterology Progress Note ---
Date of Service April 16, 2020 Assessment & Plan (1) Duodenal ulcer: (2) GI bleed: s/p EGD with dual therapy, improving now Recs: --complete 72 hour course of protonix drip, then change to protonix 40 mg BID for 3 months minimum --advance diet as tolerated --supportive care, rest as per primary team Admission and Anticipated Discharge Date Admission Date: April 15, 2020 Subjective no events overnight, hgb improved to 8.8 this afternoon, VSS, no hematochezia or GI bleeding. EGD overnight showed duodenal ulcer with visible vessel treated with epi and clip dual therapy. Feels better today, more energy, less tired. On PPI drip. Review of Systems Constitutional: no fever and no chills Respiratory: no cough, no dyspnea and no dyspnea on exertion Cardiovascular: no chest pain and no dyspnea Gastrointestinal: as per Subjective / HPI Psychiatric: no depression and no anxiety Physical Exam Constitutional: WD/WN, vitals as above Respiratory: normal respiratory effort, lungs clear to auscultation Cardiovascular: RRR, no murmur, no edema Gastrointestinal (Abdomen): normal bowel sounds, soft, nontender, no hepatosplenomegaly Musculoskeletal: no lower extremity edema Psychiatric: A+Ox3, euthymic affect Results & Data Results & Data ([facility]) Vital Signs (Past 12 Hours) Vital Signs Temp Pulse Resp BP Pulse Ox 04/16/20 12:35 36.8 C 77 16 163/71 H 90 04/16/20 11:35 86 19 170/124 H 100 04/16/20 10:35 79 20 157/101 H 97 04/16/20 09:35 79 11 L 163/65 H 94 04/16/20 08:51 74 6 L 150/80 H 96 04/16/20 08:01 36.8 C 65 16 138/67 97 04/16/20 08:00 76 04/16/20 07:00 71 22 141/56 H 90 PG Care Time/CCT Total # of Minutes Spent Total Time Spent with Patient: Total time spent is greater than 50% in coordination of care (as documented) at patient's floor/unit and/or counseling patient: Coding Level of Care Code 76479 Subseq Hosp Care Lvl 3 Diagnoses Duodenal ulcer K26.9 GI bleed K92.2
[2020-04-16] MEDS ORDERED: amLODIPine BESYLATE 5 MG TAB PO ONE (17:20)
[2020-04-16 18:45] LABS: Hematocrit (blood only) 25.3 % (37-47); Hemoglobin 8.2 g/dL (12.0-16.0)
[2020-04-16] MEDS ORDERED: QUEtiapine FUMARATE 200 MG TAB PO SCH (21:00)
[2020-04-16] MEDS: INSULIN GLARGINE SOLOSTAR 100 UNITS/ML 3 ML PEN SC SCH (21:10)
[2020-04-17] MEDS: PANTOprazole 40 MG in DEXTROSE 5% 100 ML IV SCH ×5 (01:28→21:49)
[2020-04-17] MEDS: LEVOTHYROXINE SODIUM 112 MCG TABLET PO SCH (05:19)
[2020-04-17 05:57] LABS: Hematocrit (blood only) 22.3 % (37-47); Hemoglobin 7.5 g/dL (12.0-16.0); Mean Corpuscular Hemoglobin 31.4 pg (25-34); Mean Corpuscular Hgb Conc 33.6 g/dL (32-36); Mean Corpuscular Volume 93.3 fL (80-100); Mean Platelet Volume 10.8 fL (7.4-10.4); Platelet Count 153 K/uL (130-400); RDW Coefficient of Variation 15.5 % (11.5-14.5); RDW Standard Deviation 51.7 fL (36.4-46.3); Red Blood Count 2.39 M/uL (4.2-5.4); White Blood Count 7.78 K/uL (4.8-10.8)
[2020-04-17 06:57] LABS: BUN Creatinine Ratio 36.1 (10-20); Creatinine Clr Calc Pharmacy 19.2 ml/min; Est GFR (African American) 27.1; Est GFR (Non-African American) 23.4
[2020-04-17] MEDS ORDERED: POTASSIUM CITRATE 10 MEQ TAB PO STA (07:16)
[2020-04-17 08:03] LABS: Magnesium 3.4 mg/dl (1.8-2.4); Phosphorus 2.5 mg/dl (2.5-4.9)
[2020-04-17] MEDS: ATORVASTATIN 10 MG TAB PO SCH (08:34)
[2020-04-17] MEDS: amLODIPine BESYLATE 5 MG TAB PO SCH (08:35)
[2020-04-17] MEDS: INSULIN ASPART 100 UNITS/ML 3 ML PEN SC SCH ×4 (08:38→21:08)
--- NOTE | 2020-04-17 08:44 | Hospitalist Progress Note ---
Date of Service April 17, 2020 Assessment & Plan (1) Anemia: (2) GI bleed: Patient presented from home with a suspected syncopal event and fall, reported black stool the day before In the ED, Hgb found to be 3.7 S/P EGD which showed blood in duodenum, nonbleeding duodenal ulcer with visible vessel that was injected and clipped. Continue IV PPI drip for 72h S/p 3PRBC Hb stable in 7s Monitor Hb and transfuse prn to keep >7 Diet advanced (3) CKD (chronic kidney disease) stage 4, GFR 15-29 ml/min: Baseline creatinine around 2.4 Cr was 2.8 on admission YEVGENIY on CKD4 YEVGENIY resolved. Cr is 1.95 today Monitor and avoid nephrotoxins (4) Diabetes type 2, controlled: Hgb A1c 8.5 05/2019 Hb A1c now is 5.5 Monitor blood glucose Lantus and NovoLog per protocol while hospitalized (5) Hypertension: BP currently in 150s-160s systolic Will continue to hold amlodipine and furosemide for now (6) Bipolar 1 disorder: Continue Seroquel (7) Hypothyroidism: TSH 0.019, free T4 0.9 Continue levothyroxine (8) UTI (urinary tract infection): Urine culture grew E.coli Continue ceftriaxone (9) DVT prophylaxis: SCDs due to anemia/GI bleeding Resumed patient's home stool softeners per request after reviewing home meds from last PCP's note Admission and Anticipated Discharge Date Admission Date: April 15, 2020 Subjective Patient seen and examined Patient reports some frequency No dysuria No dizziness, palpitation, abd pain, nausea, vomiting Has not yet had a bowel movement No chest pain, SOB, SIMMONS Physical Exam Constitutional: + well hydrated; no acute distress Eyes: PERRL, conjunctivae normal, anicteric sclerae ENMT: external ear and nose normal, oropharynx normal Respiratory: normal respiratory effort, lungs clear to auscultation Cardiovascular: RRR, no murmur, no edema Gastrointestinal (Abdomen): normal bowel sounds, soft, nontender, no hepatosplenomegaly Musculoskeletal: no cyanosis or clubbing, extremities motor strength 5/5 Neurologic: PERRL, EOMI, accommodation nl, no face palsy, no dysarthria Psychiatric: A+Ox3, euthymic affect Results & Data Results & Data ([facility]) Vital Signs (Past 12 Hours) Vital Signs Temp Pulse Pulse Resp BP BP BP 04/17/20 07:33 36.9 C 79 18 167/71 H 04/17/20 07:29 70 04/17/20 04:57 36.7 C 72 16 126/75 04/17/20 04:16 36.9 C 76 16 164/70 H 04/17/20 03:45 36.7 C 72 18 126/75 04/17/20 00:23 81 04/16/20 23:25 37.1 C 80 16 133/72 Pulse Ox 04/17/20 07:33 97 04/17/20 07:29 04/17/20 04:57 95 04/17/20 04:16 97 04/17/20 03:45 95 04/17/20 00:23 04/16/20 23:25 96 Laboratory Results Laboratory Results - last 24 hr 04/16/20 04/16/20 04/16/20 16:17 18:28 20:46 WBC RBC Hgb 8.2 L Hct 25.3 L MCV MCH MCHC RDW Std Deviation RDW Coeff of Tim Plt Count MPV Sodium Potassium Chloride Carbon Dioxide Anion Gap BUN Creatinine Est Cr Clr Drug Dosing Est GFR ( Amer) Est GFR (Non-Af Amer) BUN/Creatinine Ratio Glucose POC Glucose 186 H 266 H Calcium Phosphorus Magnesium 04/17/20 04/17/20 04/17/20 05:12 05:12 05:12 WBC 7.78 RBC 2.39 L Hgb 7.5 L Hct 22.3 L MCV 93.3 MCH 31.4 MCHC 33.6 RDW Std Deviation 51.7 H RDW Coeff of Tim 15.5 H Plt Count 153 D MPV 10.8 H Sodium 143 Potassium 3.0 L D Chloride 114 H Carbon Dioxide 26 Anion Gap 3.0 BUN 70 H Creatinine 1.95 H D Est Cr Clr Drug Dosing 19.2 Est GFR ( Amer) 27.1 Est GFR (Non-Af Amer) 23.4 BUN/Creatinine Ratio 36.1 H Glucose 77 POC Glucose Calcium 8.0 L Phosphorus 2.5 Magnesium 3.4 H 04/17/20 04/17/20 04/17/20 07:49 11:40 12:15 WBC RBC Hgb Hct MCV MCH MCHC RDW Std Deviation RDW Coeff of Tim Plt Count MPV Sodium Potassium 4.0 D Chloride Carbon Dioxide Anion Gap BUN Creatinine Est Cr Clr Drug Dosing Est GFR ( Amer) Est GFR (Non-Af Amer) BUN/Creatinine Ratio Glucose POC Glucose 111 H 179 H Calcium Phosphorus Magnesium (1) Diabetes type 2, controlled 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
[2020-04-17] MEDS ORDERED: amLODIPine BESYLATE 5 MG TAB PO SCH (09:00)
--- NOTE | 2020-04-17 10:51 | Gastroenterology Progress Note ---
Date of Service April 17, 2020 Assessment & Plan (1) Anemia: (2) Duodenal ulcer: (3) Constipation: (4) Hemorrhoids: duodenal ulcer s/p EGD with dual therapy, on PPI drip; constipation with rectal pains Recs: --start miralax BID for constipation --start anusol cream BID per rectum for 2 weeks for hemorrhoids --complete 72 hours of PPI drip then protonix 40 mg BID for 3 months minimum thereafter --diet as tolerated rest as per primary team Admission and Anticipated Discharge Date Admission Date: April 15, 2020 Subjective no events overnight, denies any GI bleeding, hematochezia, abdominal pains. Notes constipation and rectal pains. Otherwise no issues, vitals stable labs reviewed. Review of Systems Constitutional: no fever and no chills Respiratory: no cough, no dyspnea and no dyspnea on exertion Cardiovascular: no chest pain and no dyspnea Gastrointestinal: as per Subjective / HPI Psychiatric: no depression and no anxiety Physical Exam Constitutional: WD/WN, vitals as above Respiratory: normal respiratory effort, lungs clear to auscultation Cardiovascular: RRR, no murmur, no edema Gastrointestinal (Abdomen): normal bowel sounds, soft, nontender, no hepatosplenomegaly Musculoskeletal: no lower extremity edema Psychiatric: A+Ox3, euthymic affect Results & Data Results & Data ([facility]) Vital Signs (Past 12 Hours) Vital Signs Temp Pulse Pulse Resp BP BP BP 04/17/20 07:33 36.9 C 79 18 167/71 H 04/17/20 07:29 70 04/17/20 04:57 36.7 C 72 16 126/75 04/17/20 04:16 36.9 C 76 16 164/70 H 04/17/20 03:45 36.7 C 72 18 126/75 04/17/20 00:23 81 Pulse Ox 04/17/20 07:33 97 04/17/20 07:29 04/17/20 04:57 95 04/17/20 04:16 97 04/17/20 03:45 95 04/17/20 00:23 PG Care Time/CCT Total # of Minutes Spent Total Time Spent with Patient: Total time spent is greater than 50% in coordination of care (as documented) at patient's floor/unit and/or counseling patient: Coding Level of Care Code 41754 Subseq Hosp Care Lvl 3 Diagnoses Anemia D62 Anemia type: other cause Other causes of anemia: acute posthemorrhagic Duodenal ulcer K26.9 Constipation K59.00 Hemorrhoids K64.9 (1) Anemia Anemia type: other cause Other causes of anemia: acute posthemorrhagic Qualified Code(s): D62 - Acute posthemorrhagic anemia
[2020-04-17] MEDS: cefTRIAXone SODIUM 1,000 MG in DEXTROSE 5% 50 ML IV SCH (11:03)
[2020-04-17] MEDS: SODIUM CHLORIDE 0.9% 1000ML 1,000 ML IV SCH (11:06)
[2020-04-17] MEDS ORDERED: LACTULOSE SYRUP 20 GM/30 ML UDC PO SCH (12:15)
[2020-04-17] MEDS: DOCUSATE SODIUM 100 MG CAP PO SCH (12:55)
[2020-04-17] MEDS: LACTULOSE SYRUP 20 GM/30 ML UDC PO SCH (12:56)
[2020-04-17] MEDS: INSULIN GLARGINE SOLOSTAR 100 UNITS/ML 3 ML PEN SC SCH (21:10)
[2020-04-17] MEDS: QUEtiapine FUMARATE 200 MG TAB PO SCH (21:11)
[2020-04-18] MEDS: PANTOprazole 40 MG in DEXTROSE 5% 100 ML IV SCH ×3 (02:49→13:14)
[2020-04-18] MEDS: LEVOTHYROXINE SODIUM 112 MCG TABLET PO SCH (05:52)
[2020-04-18 07:49] LABS: Hematocrit (blood only) 23.6 % (37-47); Hemoglobin 7.7 g/dL (12.0-16.0); Mean Corpuscular Hemoglobin 31.2 pg (25-34); Mean Corpuscular Hgb Conc 32.6 g/dL (32-36); Mean Corpuscular Volume 95.5 fL (80-100); Mean Platelet Volume 10.1 fL (7.4-10.4); Platelet Count 161 K/uL (130-400); RDW Coefficient of Variation 15.3 % (11.5-14.5); RDW Standard Deviation 51.4 fL (36.4-46.3); Red Blood Count 2.47 M/uL (4.2-5.4); White Blood Count 5.98 K/uL (4.8-10.8)
[2020-04-18] MEDS: SODIUM CHLORIDE 0.9% 1000ML 1,000 ML IV SCH (07:52)
[2020-04-18] MEDS: DOCUSATE SODIUM 100 MG CAP PO SCH (07:55)
[2020-04-18] MEDS: ATORVASTATIN 10 MG TAB PO SCH (07:55)
[2020-04-18] MEDS: SENNOSIDES 8.8 MG/5 ML UDC PO SCH (07:55)
[2020-04-18] MEDS: amLODIPine BESYLATE 5 MG TAB PO SCH (07:55)
[2020-04-18] MEDS: LACTULOSE SYRUP 20 GM/30 ML UDC PO SCH (08:04)
[2020-04-18] MEDS: INSULIN ASPART 100 UNITS/ML 3 ML PEN SC SCH ×4 (08:10→22:08)
[2020-04-18 08:38] LABS: BUN Creatinine Ratio 25.9 (10-20); Calcium 8.5 mg/dl (8.5-10.1); Creatinine Clr Calc Pharmacy 19.1 ml/min; Est GFR (African American) 26.9; Est GFR (Non-African American) 23.2; Magnesium 2.6 mg/dl (1.8-2.4); Phosphorus 2.5 mg/dl (2.5-4.9); Potassium 3.4 mmol/L (3.5-5.1)
[2020-04-18] MEDS ORDERED: POTASSIUM CITRATE 10 MEQ TAB PO ONE (08:48)
--- NOTE | 2020-04-18 10:42 | Gastroenterology Progress Note ---
Date of Service April 18, 2020 Assessment & Plan (1) Duodenal ulcer: -IV Protonix gtt x 72 hours then transition to Protonix 40 mg BID on discharge. -Continue to monitor H/H. -Outpatient follow-up in our office in 2-4 weeks. -Patient currently does not wish to advance her diet. (2) Constipation: -Continue Miralax inpatient -Upon d/c, resume her usual bowel regimen Admission and Anticipated Discharge Date Admission Date: April 15, 2020 Supervising Physician Co-Signing Physician Notes Agree with NHAN Workman as above Abd: Soft, NT, ND Continue current therapy Advance diet as tolerated Followup as outpatient in 4-6 weeks Subjective Patient is an 80 yo female with a duodenal ulcer. She denies abdominal pain. H/H 7.7/23.6. No further overt GI bleeding. She denies abdominal pain. She notes she is tolerating a liquid diet well. She reports she is fatigued. She is moving her bowels. She denies other GI complaints at this time. Review of Systems Constitutional: + fatigue Respiratory: no cough and no dyspnea Cardiovascular: no chest pain Gastrointestinal: no abdominal pain, no constipation, no diarrhea/loose stools and no blood in stools Physical Exam Constitutional: WD/WN, vitals as above Respiratory: normal respiratory effort Cardiovascular: Extremities: no edema Gastrointestinal (Abdomen): Inspection/Auscultation: abdomen normal to inspection Musculoskeletal: Head/Neck/Chest: normocephalic Skin: no rashes Psychiatric: A+Ox3, euthymic affect Results & Data Results & Data ([facility]) Vital Signs (Past 12 Hours) Vital Signs Temp Pulse Pulse Resp BP Pulse Ox 04/18/20 07:48 36.9 C 83 20 152/63 H 95 04/18/20 04:00 36.6 C 79 20 136/85 94 04/17/20 23:18 94 H 04/17/20 22:47 36.9 C 80 18 141/72 H 96 PG Care Time/CCT Total # of Minutes Spent Total Time Spent with Patient: Total time spent is greater than 50% in coordination of care (as documented) at patient's floor/unit and/or counseling patient: Coding Level of Care Code 14416 Subseq Hosp Care Lvl 2 Diagnoses Duodenal ulcer K26.9 Constipation K59.00
--- NOTE | 2020-04-18 10:46 | Hospitalist Progress Note ---
Date of Service April 18, 2020 Assessment & Plan (1) Anemia: (2) GI bleed: Patient presented from home with a suspected syncopal event and fall, reported black stool the day before In the ED, Hgb found to be 3.7 S/P EGD which showed blood in duodenum, nonbleeding duodenal ulcer with visible vessel that was injected and clipped. Continue IV PPI drip for 72h. Will complete by this evening S/p 3PRBC Hb stable in 7s Monitor Hb and transfuse prn to keep >7 Tolerating diet well Start po pantoprazole tonight (3) CKD (chronic kidney disease) stage 4, GFR 15-29 ml/min: Baseline creatinine around 2.4 Cr was 2.8 on admission YEVGENIY on CKD4 YEVGENIY resolved. Cr is 1.96 today Monitor and avoid nephrotoxins (4) Diabetes type 2, controlled: Hgb A1c 8.5 05/2019 Hb A1c now is 5.5 Monitor blood glucose Lantus and NovoLog per protocol while hospitalized (5) Hypertension: BP currently in 150s-160s systolic Resume lasix on discharge Continue amlodipine (6) Bipolar 1 disorder: Continue Seroquel (7) Hypothyroidism: TSH 0.019, free T4 0.9 Continue levothyroxine (8) UTI (urinary tract infection): Urine culture grew E.coli Changed to keflex 250mg bid (renally dosed) for 5 days to complete therapy (9) DVT prophylaxis: SCDs due to anemia/GI bleeding RN asked to discontinue de león and monitor urine output Admission and Anticipated Discharge Date Admission Date: April 15, 2020 Subjective Patient seen and examined Reports only weakness Reports constipation has resolved. Had a couple of bowel movements yesterday. Stated they were not bloody. Denied any dizziness, SOB, chest pain, cough Denied any SIMMONS,palpitation Denied any abd pain, nausea, diarrhea Reported to have urinary retention overnight and had de león put in No fevers, chills Physical Exam Constitutional: + well hydrated; no acute distress Eyes: PERRL, conjunctivae normal, anicteric sclerae ENMT: external ear and nose normal, oropharynx normal Respiratory: normal respiratory effort, lungs clear to auscultation Cardiovascular: RRR, no murmur, no edema Gastrointestinal (Abdomen): normal bowel sounds, soft, nontender, no hepatosplenomegaly Musculoskeletal: no cyanosis or clubbing, extremities motor strength 5/5 Neurologic: PERRL, EOMI, accommodation nl, no face palsy, no dysarthria Psychiatric: A+Ox3, euthymic affect Genitourinary: De León in situ Results & Data Results & Data ([facility]) Vital Signs (Past 12 Hours) Vital Signs Temp Pulse Pulse Resp BP Pulse Ox 04/18/20 07:48 36.9 C 83 20 152/63 H 95 04/18/20 04:00 36.6 C 79 20 136/85 94 04/17/20 23:18 94 H 04/17/20 22:47 36.9 C 80 18 141/72 H 96 Laboratory Results Laboratory Results - last 24 hr 04/17/20 04/17/20 04/17/20 11:40 12:15 16:34 WBC RBC Hgb Hct MCV MCH MCHC RDW Std Deviation RDW Coeff of Tim Plt Count MPV Sodium Potassium 4.0 D Chloride Carbon Dioxide Anion Gap BUN Creatinine Est Cr Clr Drug Dosing Est GFR ( Amer) Est GFR (Non-Af Amer) BUN/Creatinine Ratio Glucose POC Glucose 179 H 196 H Calcium Phosphorus Magnesium 04/17/20 04/18/20 04/18/20 20:11 07:32 07:32 WBC 5.98 RBC 2.47 L Hgb 7.7 L Hct 23.6 L MCV 95.5 MCH 31.2 MCHC 32.6 RDW Std Deviation 51.4 H RDW Coeff of Tim 15.3 H Plt Count 161 MPV 10.1 Sodium 144 Potassium 3.4 L Chloride 113 H Carbon Dioxide 25 Anion Gap 6.0 BUN 51 H Creatinine 1.96 H Est Cr Clr Drug Dosing 19.1 Est GFR ( Amer) 26.9 Est GFR (Non-Af Amer) 23.2 BUN/Creatinine Ratio 25.9 H Glucose 132 H POC Glucose 230 H Calcium 8.5 Phosphorus 2.5 Magnesium 2.6 H 04/18/20 07:34 WBC RBC Hgb Hct MCV MCH MCHC RDW Std Deviation RDW Coeff of Tim Plt Count MPV Sodium Potassium Chloride Carbon Dioxide Anion Gap BUN Creatinine Est Cr Clr Drug Dosing Est GFR ( Amer) Est GFR (Non-Af Amer) BUN/Creatinine Ratio Glucose POC Glucose 143 H Calcium Phosphorus Magnesium (1) Diabetes type 2, controlled 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
[2020-04-18] MEDS: cephALEXin 250 MG CAP PO SCH ×2 (12:09→22:08)
[2020-04-18] MEDS ORDERED: [UNRECOGNIZED DRUG - REMARK] ONE (18:00)
[2020-04-18] MEDS: QUEtiapine FUMARATE 200 MG TAB PO SCH (22:03)
[2020-04-18] MEDS: PANTOprazole 40 MG TAB PO SCH (22:08)
[2020-04-18] MEDS: INSULIN GLARGINE SOLOSTAR 100 UNITS/ML 3 ML PEN SC SCH (22:10)
[2020-04-19] MEDS: SODIUM CHLORIDE 0.9% 1000ML 1,000 ML IV SCH (03:52)
[2020-04-19] MEDS: LEVOTHYROXINE SODIUM 112 MCG TABLET PO SCH (06:43)
[2020-04-19 07:01] LABS: Hematocrit (blood only) 23.4 % (37-47); Hemoglobin 7.6 g/dL (12.0-16.0); Mean Corpuscular Hemoglobin 31.1 pg (25-34); Mean Corpuscular Hgb Conc 32.5 g/dL (32-36); Mean Corpuscular Volume 95.9 fL (80-100); Mean Platelet Volume 10.6 fL (7.4-10.4); Platelet Count 187 K/uL (130-400); RDW Coefficient of Variation 15.2 % (11.5-14.5); RDW Standard Deviation 49.8 fL (36.4-46.3); Red Blood Count 2.44 M/uL (4.2-5.4); White Blood Count 5.53 K/uL (4.8-10.8)
[2020-04-19 07:29] LABS: BUN Creatinine Ratio 24.2 (10-20); Calcium 8.5 mg/dl (8.5-10.1); Creatinine Clr Calc Pharmacy 20.7 ml/min; Est GFR (African American) 29.7; Est GFR (Non-African American) 25.6; Magnesium 2.2 mg/dl (1.8-2.4); Potassium 3.5 mmol/L (3.5-5.1)
[2020-04-19] MEDS: DOCUSATE SODIUM 100 MG CAP PO SCH (07:46)
[2020-04-19] MEDS: PANTOprazole 40 MG TAB PO SCH ×2 (07:47→21:29)
[2020-04-19] MEDS: SENNOSIDES 8.8 MG/5 ML UDC PO SCH (07:47)
[2020-04-19] MEDS: cephALEXin 250 MG CAP PO SCH ×2 (07:47→21:29)
[2020-04-19] MEDS: amLODIPine BESYLATE 5 MG TAB PO SCH (07:47)
[2020-04-19] MEDS: ATORVASTATIN 10 MG TAB PO SCH (07:47)
[2020-04-19] MEDS: LACTULOSE SYRUP 20 GM/30 ML UDC PO SCH (07:48)
[2020-04-19] MEDS: ACETAMINOPHEN 325 MG TAB PO PRN (07:50)
[2020-04-19] MEDS: INSULIN ASPART 100 UNITS/ML 3 ML PEN SC SCH ×4 (10:08→21:26)
--- NOTE | 2020-04-19 10:38 | Hospitalist Progress Note ---
Date of Service April 19, 2020 Assessment & Plan (1) Anemia: (2) GI bleed: Patient presented from home with a suspected syncopal event and fall, reported black stool the day before In the ED, Hgb found to be 3.7 S/P EGD which showed blood in duodenum, nonbleeding duodenal ulcer with visible vessel that was injected and clipped. S/p 3PRBC Hb stable in 7s Monitor Hb and transfuse prn to keep >7 Tolerating diet well Completed iv ppi 72h yesterday evening Currently on po PPI BID (3) CKD (chronic kidney disease) stage 4, GFR 15-29 ml/min: Baseline creatinine around 2.4 Cr was 2.8 on admission YEVGENIY on CKD4 YEVGENIY resolved. Cr is 1.81 today Monitor and avoid nephrotoxins Resume lasix on discharge (4) Diabetes type 2, controlled: Hgb A1c 8.5 05/2019 Hb A1c now is 5.5 Monitor blood glucose Lantus and NovoLog per protocol while hospitalized (5) Hypertension: BP currently in 150s-160s systolic Resume lasix on discharge Continue amlodipine (6) Bipolar 1 disorder: Continue Seroquel (7) Hypothyroidism: TSH 0.019, free T4 0.9 Continue levothyroxine (8) UTI (urinary tract infection): Urine culture grew E.coli Continue keflex 250mg bid (renally dosed) for 5 days to complete therapy For urinary retention, will continue bladder scan and voiding trial. Appreciate urology evaluation (9) DVT prophylaxis: SCDs due to anemia/GI bleeding Dispo - Get PT/OT Patient vehemently refused psych evaluation for possible depression and any meds for that for now Will continue to monitor and counseling director Will await PT/OT eval, if ok to discharge home, will need home health services Admission and Anticipated Discharge Date Admission Date: April 15, 2020 Subjective Patient seen and examined Has been having urinary retention since yesterday Urinates a bit but still has significant residual (usually over 200cc), requiring intermittent straight cath Patient denies dysuria. No fevers, chills Patient worried about bowel movements She also reports feeling a bit unsteady sometimes Has been having regular bowel movements since stool softners were resumed She denied all other symptoms but states that she feels miserable with the urinary problems and 's dementia. She denied depression, suicidal or homicidal ideation Physical Exam Constitutional: + well hydrated; no acute distress Eyes: PERRL, conjunctivae normal, anicteric sclerae ENMT: external ear and nose normal, oropharynx normal Respiratory: normal respiratory effort, lungs clear to auscultation Cardiovascular: RRR, no murmur, no edema Gastrointestinal (Abdomen): normal bowel sounds, soft, nontender, no hepatosplenomegaly Musculoskeletal: no cyanosis or clubbing, extremities motor strength 5/5 Neurologic: PERRL, EOMI, accommodation nl, no face palsy, no dysarthria Psychiatric: A+Ox3, euthymic affect Orientation: alert and oriented x 3 Affect: + flat affect Results & Data Results & Data ([facility]) Vital Signs (Past 12 Hours) Vital Signs Temp Pulse Pulse Resp BP Pulse Ox 04/19/20 07:57 37.0 C 88 20 169/89 H 100 04/19/20 05:22 152/72 H 04/19/20 03:00 36.9 C 84 20 181/79 H 95 04/19/20 00:00 81 04/18/20 23:00 36.9 C 81 20 171/65 H 98 Laboratory Results Laboratory Results - last 24 hr 04/18/20 04/18/20 04/18/20 11:37 16:33 20:37 WBC RBC Hgb Hct MCV MCH MCHC RDW Std Deviation RDW Coeff of Tim Plt Count MPV Sodium Potassium Chloride Carbon Dioxide Anion Gap BUN Creatinine Est Cr Clr Drug Dosing Est GFR ( Amer) Est GFR (Non-Af Amer) BUN/Creatinine Ratio Glucose POC Glucose 172 H 174 H 199 H Calcium Magnesium 04/19/20 04/19/20 04/19/20 06:27 06:27 07:43 WBC 5.53 RBC 2.44 L Hgb 7.6 L Hct 23.4 L MCV 95.9 MCH 31.1 MCHC 32.5 RDW Std Deviation 49.8 H RDW Coeff of Tim 15.2 H Plt Count 187 MPV 10.6 H Sodium 144 Potassium 3.5 Chloride 114 H Carbon Dioxide 26 Anion Gap 4.0 BUN 44 H Creatinine 1.81 H Est Cr Clr Drug Dosing 20.7 Est GFR ( Amer) 29.7 Est GFR (Non-Af Amer) 25.6 BUN/Creatinine Ratio 24.2 H Glucose 78 POC Glucose 95 Calcium 8.5 Magnesium 2.2 (1) Diabetes type 2, controlled 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
--- NOTE | 2020-04-19 16:01 | Urology Consultation ---
Date of Consultation April 19, 2020 Assessment & Plan (1) UTI (urinary tract infection): (2) Urinary retention: Retaining some urine; significant symptoms - overall, I suspect this is related to a combination of her chronic issues, acute GI related issues, and most significantly her UTI - cont abx - it still experiencing symptoms in the 24 hours - I would consider switching from keflex to an alternative. - place de león catheter - she reports that her urinary urge/freq greatly limited her ability to rest last night and she is anxious for relief. - I recommend keeping the cath for a minimum of 48 hours - if hospitalization extends beyond that, it is reasonable to remove the catheter and attempt a voiding trial prior to d/c home. History of Present Illness Attending Physician: Yaz Castillo MD History of Present Illness 80-year-old female who has been admitted with a GI bleed in the midst of this was also found to have an E. coli urinary tract infection and has experienced urinary retention-like symptoms PVRs are consistently been greater than 200 cc, however she has not had significantly high volumes More problematic has been that she has had a constant sensation of urge She is unable to empty more than a few drops at a time This has disrupted her sleep and has become increasingly stressful to her Allergies Allergy/AdvReac Type Severity Reaction Status Date / Time Iodinated Contrast Media Allergy Severe Anaphylaxis Verified 04/15/20 16:42 mold Allergy Unknown UNKNOWN Verified 04/15/20 16:42 pollen extracts Allergy Unknown UNKNOWN Verified 04/15/20 16:42 mushroom Allergy Verified 04/16/20 13:49 Dust Allergy Unknown UNKNOWN Uncoded 04/15/20 16:42 Fungi Allergy Unknown UNKNOWN Uncoded 04/15/20 16:42 Home Medications Home Medications Medication Instructions Recorded Confirmed Type atorvastatin 20 mg tablet 20 mg PO DAILY 03/03/19 04/15/20 History multivitamin 1 tab PO DAILY 03/03/19 04/15/20 History levothyroxine 112 mcg PO QAM 05/07/19 04/15/20 History OneTouch Ultra Blue Test Strip #500 ea NS 09/04/19 04/15/20 Rx pen needle, diabetic 31 gauge x See Rx Instructions .ROUTE 09/04/19 04/15/20 Rx 5/16" .COMPLEX #500 ea furosemide 40 mg tablet 40 mg PO QAM 02/15/20 04/15/20 History insulin glargine 100 unit/mL (3 12 unit SUBCUT HS ml 02/15/20 04/15/20 History mL) subcutaneous pen quetiapine 400 mg tablet 400 mg PO HS 02/15/20 04/15/20 History Novolog Flexpen U-100 Insulin 100 40 unit SUBCUT .COMPLEX #45 ml NS 02/23/20 04/15/20 Rx unit/mL (3 mL) subcutaneous amlodipine 10 mg PO DAILY 04/15/20 04/15/20 History pantoprazole 40 mg PO DAILY 04/15/20 04/15/20 History Patient History Medical History Anemia of chronic disease Anxiety Bipolar 1 disorder CKD (chronic kidney disease) stage 4, GFR 15-29 ml/min Diabetes type 2, controlled Disc degeneration, lumbar Fracture of parietal bone of skull GERD (gastroesophageal reflux disease) Jonathan's thyroiditis Hemorrhage, subdural, traumatic HLD (hyperlipidemia) Hyperparathyroidism Hypertension Hypothyroidism IBS (irritable bowel syndrome) Irritable bowel syndrome with constipation Osteopenia Pacemaker Subarachnoid, subdural, and extradural hemorrhage, following injury Surgical History H/O lumpectomy History of total abdominal hysterectomy and bilateral salpingo-oophorectomy Hx of cholecystectomy Family History Sister Colorectal cancer Other Cancer Diabetes History of hysterectomy Hypertension Stroke Social History Smoking Status: Never smoker Hx Alcohol Use: No Hx Substance Use: No Preferred Language: Grenadian Communication Ability: Effective Visual Impairment: No Limitations Hearing Ability: Normal Wrestling Coach Required: No Beliefs That Will Affect Care: None marital status: Current Living Situation: Spouse Current Living Situation Comment: home health comes in to help with pt's Other Information That Helps Us Care for You: No Feels Safe at Home: Yes Safety Concerns: Feels Safe At This Time Assistive Devices: Glasses and Walker Review of Systems Constitutional: no fever, no chills and no fatigue Eyes: no worsening vision Ear, Nose, Mouth, Throat: no facial pain and no pain with swallowing Respiratory: no cough and no dyspnea Cardiovascular: no chest pain and no palpitations Gastrointestinal: no abdominal pain, no nausea and no vomiting Genitourinary: + dysuria, + difficulty urinating, + urinary frequency, + urinary hesitancy and + urinary urgency; no hematuria Musculoskeletal: no back pain Integumentary: no rash and no urticaria Neurologic: no gait abnormality and no unsteadiness Psychiatric: no behavioral changes and no depression Endocrine: no fatigue Physical Exam Constitutional: well developed and well nourished Neck: neck nontender Respiratory: normal respiratory effort; no respiratory distress and does not use accessory muscles Cardiovascular: Rate/Rhythm: regular rate Vessels: radial pulses present Extremities: no edema Gastrointestinal (Abdomen): Inspection/Auscultation: abdomen normal to inspection Percussion/Palpation: abdomen soft; abdomen nontender and no guarding Musculoskeletal: Head/Neck/Chest: normocephalic and head atraumatic Extremities: extremities normal to inspection Skin: no rashes and no lesions Trauma: no evidence of skin trauma Neurologic: awake; not obtunded Speech / Cognition: normal speech Motor/Sensory: no tremor Psychiatric: Orientation: alert and oriented x 3 Lymphatic: no lymphadenopathy Results & Data ([facility]) Vital Signs (Past 12 Hours) Vital Signs Temp Pulse Pulse Resp BP BP Pulse Ox 04/19/20 15:51 36.8 C 89 20 187/80 H 99 04/19/20 11:16 36.3 C L 83 16 144/79 H 100 04/19/20 11:07 36.9 C 86 20 168/85 H 98 04/19/20 08:00 74 04/19/20 07:57 37.0 C 88 20 169/89 H 100 04/19/20 05:22 152/72 H PG Care Time/CCT Total # of Minutes Spent Total Time Spent with Patient: Total time spent is greater than 50% in coordination of care (as documented) at patient's floor/unit and/or counseling patient: Coding Level of Care Code 16262 Inpt Consult Level 4 Diagnoses UTI (urinary tract infection) N39.0 Urinary retention R33.9
[2020-04-19] MEDS: INSULIN GLARGINE SOLOSTAR 100 UNITS/ML 3 ML PEN SC SCH (21:27)
[2020-04-19] MEDS: QUEtiapine FUMARATE 200 MG TAB PO SCH (21:28)
[2020-04-20] MEDS: LEVOTHYROXINE SODIUM 112 MCG TABLET PO SCH (06:25)
[2020-04-20 07:27] LABS: Hematocrit (blood only) 24.9 % (37-47); Hemoglobin 7.9 g/dL (12.0-16.0); Mean Corpuscular Hemoglobin 30.9 pg (25-34); Mean Corpuscular Hgb Conc 31.7 g/dL (32-36); Mean Corpuscular Volume 97.3 fL (80-100); Mean Platelet Volume 10.4 fL (7.4-10.4); Platelet Count 204 K/uL (130-400); RDW Coefficient of Variation 15.7 % (11.5-14.5); RDW Standard Deviation 52.1 fL (36.4-46.3); Red Blood Count 2.56 M/uL (4.2-5.4); White Blood Count 5.17 K/uL (4.8-10.8)
[2020-04-20 07:55] LABS: BUN Creatinine Ratio 24.6 (10-20); Calcium 8.9 mg/dl (8.5-10.1); Creatinine Clr Calc Pharmacy 18.2 ml/min; Est GFR (African American) 25.4; Est GFR (Non-African American) 21.9; Potassium 3.7 mmol/L (3.5-5.1)
[2020-04-20] MEDS: LACTULOSE SYRUP 20 GM/30 ML UDC PO SCH (08:52)
[2020-04-20] MEDS: DOCUSATE SODIUM 100 MG CAP PO SCH (08:53)
[2020-04-20] MEDS: amLODIPine BESYLATE 5 MG TAB PO SCH (08:53)
[2020-04-20] MEDS: cephALEXin 250 MG CAP PO SCH ×2 (08:53→20:48)
[2020-04-20] MEDS: PANTOprazole 40 MG TAB PO SCH ×2 (08:54→20:47)
[2020-04-20] MEDS: SENNOSIDES 8.8 MG/5 ML UDC PO SCH (08:54)
[2020-04-20] MEDS: FUROSEMIDE 40 MG TAB PO SCH (08:55)
[2020-04-20] MEDS: ATORVASTATIN 10 MG TAB PO SCH (08:55)
[2020-04-20] MEDS: INSULIN ASPART 100 UNITS/ML 3 ML PEN SC SCH ×4 (08:58→20:49)
[2020-04-20] MEDS: ACETAMINOPHEN 325 MG TAB PO PRN (09:01)
--- NOTE | 2020-04-20 09:01 | Hospitalist Progress Note ---
Date of Service April 20, 2020 Assessment & Plan (1) Anemia: (2) GI bleed: Patient presented from home with a suspected syncopal event and fall, reported black stool the day before In the ED, Hgb found to be 3.7 S/P EGD which showed blood in duodenum, nonbleeding duodenal ulcer with visible vessel that was injected and clipped. S/p 3PRBC Hb stable in 7s Monitor Hb and transfuse prn to keep >7 Tolerating diet well Completed iv ppi 72h yesterday evening Currently on po PPI BID Hgb 7.9 on 04/20/20 (3) CKD (chronic kidney disease) stage 4, GFR 15-29 ml/min: Baseline creatinine around 2.4 Cr was 2.8 on admission YEVGENIY on CKD4 YEVGENIY resolved. Cr ~2 today Monitor and avoid nephrotoxins Resume lasix on discharge (4) Diabetes type 2, controlled: Hgb A1c 8.5 05/2019 Hb A1c now is 5.5 Monitor blood glucose Lantus and NovoLog per protocol while hospitalized (5) Hypertension: BP currently in 150s-160s systolic Resume lasix on discharge Continue amlodipine Episode of wide complex tachycardia - on 04/20/20 at about 11am - pt asymptomatic - had echo in 05/2019 - normal LV size and thickness. EF 65-70%, Grade 1 diastolic dysfunction, No sign. valvular pathology. No segmental ventr. wall motion abnormalities noted - hx of pacemaker - K and Mg normal, will keep K>4, Mg >2 - will consult w/ cardiology (6) Bipolar 1 disorder: Continue Seroquel (7) Hypothyroidism: TSH 0.019, free T4 0.9 Continue levothyroxine (8) UTI (urinary tract infection): Urine culture grew E.coli Continue keflex 250mg bid (renally dosed) for 5 days to complete therapy For urinary retention, will continue bladder scan and voiding trial. 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 Contacted by nursing staff about episode of wide complex tachycardia. Pt asymptomatic, no shortness of breath, dizziness, or chest pain. Due to to urinary retention Matthew placed again yesterday, no current issues. Per urology recommend to keep Matthew for at least 48 hours. Review of Systems Review of Systems: All systems reviewed & are unremarkable except as noted in HPI & below Constitutional: no fever and no chills Respiratory: no cough and no dyspnea Cardiovascular: no chest pain and no palpitations Gastrointestinal: no abdominal pain, no nausea and no vomiting Physical Exam Physical Exam: Constitutional: WD/WN, + well hydrated; no acute distress Eyes: PERRL, EOMI, conjunctivae normal, anicteric sclerae ENMT: external ear and nose normal, oropharynx normal Respiratory: normal respiratory effort, lungs clear to auscultation Cardiovascular: RRR, no murmur, no edema Gastrointestinal (Abdomen): normal bowel sounds, soft, nontender Musculoskeletal: no cyanosis or clubbing, extremities motor strength 5/5 Neurologic: PERRL, EOMI, no face palsy, no dysarthria Psychiatric: A+Ox3, euthymic affect Orientation: alert and oriented x 3 Affect: + flat affect Results & Data Results & Data ([facility]) Vital Signs (Past 12 Hours) Vital Signs Temp Pulse Pulse Resp BP BP Pulse Ox 04/20/20 07:58 36.9 C 79 20 164/69 H 98 04/20/20 07:00 69 04/20/20 03:00 36.7 C 75 20 139/72 97 04/20/20 00:42 80 04/19/20 22:00 37.3 C 71 20 126/62 97 Laboratory Results 04/20/20 04/20/20 04/20/20 Range/Units 07:33 07:13 07:13 WBC 5.17 (4.8-10.8) K/uL RBC 2.56 L (4.2-5.4) M/uL Hgb 7.9 L (12.0-16.0) g/dL Hct 24.9 L (37-47) % MCV 97.3 (80-100) fL MCH 30.9 (25-34) pg MCHC 31.7 L (32-36) g/dL RDW Std Deviation 52.1 H (36.4-46.3) fL RDW Coeff of Tim 15.7 H (11.5-14.5) % Plt Count 204 (130-400) K/uL MPV 10.4 (7.4-10.4) fL Sodium 145 (136-145) mmol/L Potassium 3.7 (3.5-5.1) mmol/L Chloride 116 H (98-107) mmol/L Carbon Dioxide 25 (21-32) mmol/L Anion Gap 4.0 (3-11) BUN 51 H (7-18) mg/dl Creatinine 2.06 H (0.6-1.2) mg/dl Est Cr Clr Drug Dosing 18.2 ml/min Est GFR ( Amer) 25.4 Est GFR (Non-Af Amer) 21.9 BUN/Creatinine Ratio 24.6 H (10-20) Glucose 83 (70-99) mg/dl POC Glucose 97 (70-99) mg/dl Calcium 8.9 (8.5-10.1) mg/dl 04/19/20 04/19/20 04/19/20 Range/Units 20:26 16:33 11:24 WBC (4.8-10.8) K/uL RBC (4.2-5.4) M/uL Hgb (12.0-16.0) g/dL Hct (37-47) % MCV (80-100) fL MCH (25-34) pg MCHC (32-36) g/dL RDW Std Deviation (36.4-46.3) fL RDW Coeff of Tim (11.5-14.5) % Plt Count (130-400) K/uL MPV (7.4-10.4) fL Sodium (136-145) mmol/L Potassium (3.5-5.1) mmol/L Chloride (98-107) mmol/L Carbon Dioxide (21-32) mmol/L Anion Gap (3-11) BUN (7-18) mg/dl Creatinine (0.6-1.2) mg/dl Est Cr Clr Drug Dosing ml/min Est GFR ( Amer) Est GFR (Non-Af Amer) BUN/Creatinine Ratio (10-20) Glucose (70-99) mg/dl POC Glucose 234 H 165 H 179 H (70-99) mg/dl Calcium (8.5-10.1) mg/dl Medications Administered Current Inpatient Medications Acetaminophen (Acetaminophen 325 Mg Tab) 650 mg PO Q4H PRN PRN Reason: Pain Stop: 05/18/20 16:36 Last Admin: 04/20/20 09:01 Dose: 650 mg Documented by: Amlodipine Besylate (Amlodipine Besylate 5 Mg Tab) 10 mg PO QAM [facility] Stop: 05/16/20 08:59 Last Admin: 04/20/20 08:53 Dose: 10 mg Documented by: Atorvastatin Calcium (Atorvastatin 10 Mg Tab) 10 mg PO QAM [facility] Stop: 05/16/20 08:59 Last Admin: 04/20/20 08:55 Dose: 10 mg Documented by: Cephalexin HCl (Cephalexin 250 Mg Cap) 250 mg PO BID [facility]; Protocol Stop: 04/23/20 10:59 Last Admin: 04/20/20 08:53 Dose: 250 mg Documented by: Dextrose (Dextrose 50% 50 Ml Syringe) 25 - 50 ml IV UD PRN; Protocol PRN Reason: Hypoglycemia Protocol Stop: 05/16/20 08:46 Docusate Sodium (Docusate Sodium 100 Mg Cap) 100 mg PO DAILY [facility] Stop: 05/17/20 12:14 Last Admin: 04/20/20 08:53 Dose: 100 mg Documented by: Furosemide (Furosemide 40 Mg Tab) 40 mg PO QAM [facility] Stop: 05/16/20 08:59 Furosemide ([facility] 40 Mg Tab) [facility] Stop: 05/20/20 08:59 Last Admin: 04/20/20 08:55 Dose: 40 mg Documented by: Glucagon (Glucagon For Inj 1 Mg Vial) 1 mg SQ UD PRN; Protocol PRN Reason: Hypoglycemia Protocol Stop: 05/16/20 08:46 Glucose (Glucose 10 Tabs/Tube) 4 - 8 tabs PO UD PRN; Protocol PRN Reason: Hypoglycemia Protocol Stop: 05/16/20 08:46 Glucose (Glucose 40% Gel 15 Gm Tube) 15 - 30 gm PO UD PRN; Protocol PRN Reason: Hypoglycemia Protocol Stop: 05/16/20 08:46 Insulin Aspart (Insulin Aspart 100 Units/Ml 3 Ml Pen) 0 units SC ACHS [facility] Stop: 05/16/20 11:29 Last Admin: 04/20/20 08:58 Dose: 1 units Documented by: Insulin Glargine (Insulin Glargine Solostar 100 Units/Ml 3 Ml Pen) 12 units SC HS [facility] Stop: 05/16/20 20:59 Last Admin: 04/19/20 21:27 Dose: 12 units Documented by: Lactulose (Lactulose Syrup 20 Gm/30 Ml Udc) 20 gm PO DAILY [facility] Stop: 05/17/20 12:14 Last Admin: 04/20/20 08:52 Dose: 20 gm Documented by: Levothyroxine Sodium (Levothyroxine Sodium 112 Mcg Tablet) 112 mcg PO DAILYBB [facility] Stop: 05/16/20 06:29 Last Admin: 04/20/20 06:25 Dose: 112 mcg Documented by: Miscellaneous (Carbohydrates For Hypoglycemia ) 15 - 30 gm PO UD PRN PRN Reason: Hypoglycemia Protocol Stop: 05/16/20 08:46 Pantoprazole Sodium (Pantoprazole 40 Mg Tab) 40 mg PO BID [facility] Stop: 05/18/20 20:59 Last Admin: 04/20/20 08:54 Dose: 40 mg Documented by: Quetiapine Fumarate (Quetiapine Fumarate 200 Mg Tab) 400 mg PO HS [facility] Stop: 05/15/20 20:59 Last Admin: 04/19/20 21:28 Dose: 400 mg Documented by: Sennosides (Sennosides 8.8 Mg/5 Ml Udc) 8.8 mg PO QAM [facility] Stop: 05/18/20 08:59 Last Admin: 04/20/20 08:54 Dose: 8.8 mg Documented by: (1) Diabetes type 2, controlled 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
--- NOTE | 2020-04-20 09:16 | Urology Progress Note ---
Date of Service April 20, 2020 Assessment & Plan (1) UTI (urinary tract infection): (2) Urinary retention: 80 yo F admitted for weakness, anemia, GI bleeding and YEVGENIY, E. coli UTI, subsequent urinary retention - Subjectively improved today - UR likely combination of her chronic issues, acute GI related issues, and most significantly her UTI - Continue antibiotics - consider switching from Keflex to an alternative if symptoms persist. - Tolerating Matthew catheter - recommend maintain for a minimum of 48 hours - if hospitalization extends beyond that, it is reasonable to remove the catheter and attempt a voiding trial prior to d/c home. Thank you for allowing us to participate in the acute care of Mrs. Lanier. Please reconsult us with additional questions, concerns or changes in patient status. Admission and Anticipated Discharge Date Admission Date: April 15, 2020 Subjective Pt seen and examined at bedside this AM. Awake and sitting up in bed resting. No issues overnight. She reports that she slept much better last night and feels improved today. Tolerating Matthew catheter without bother. Matthew catheter intact, patent, and draining clear yellow urine. Denies pain. Tolerating diet. No f/c/n/v. No additional concerns today. Review of Systems Constitutional: as per Subjective / HPI Gastrointestinal: as per Subjective / HPI Genitourinary: as per Subjective / HPI Physical Exam Constitutional: well developed, well nourished and + thin; no acute distress and not ill appearing Respiratory: normal respiratory effort and able to speak in complete sentences; no respiratory distress and no labored breathing Cardiovascular: Extremities: no pedal edema Gastrointestinal (Abdomen): Inspection/Auscultation: abdomen normal to inspection; abdomen not distended Musculoskeletal: Head/Neck/Chest: normocephalic and head atraumatic Skin: warm and dry Neurologic: moves all extremities and awake Psychiatric: Orientation: alert and oriented x 3 Genitourinary: Matthew catheter intact, patent, and draining clear yellow urine. Results & Data ([facility]) Vital Signs (Past 12 Hours) Vital Signs Temp Pulse Pulse Resp BP BP Pulse Ox 04/20/20 07:58 36.9 C 79 20 164/69 H 98 04/20/20 07:00 69 04/20/20 03:00 36.7 C 75 20 139/72 97 04/20/20 00:42 80 04/19/20 22:00 37.3 C 71 20 126/62 97 PG Care Time/CCT Total # of Minutes Spent Total Time Spent with Patient: Total time spent is greater than 50% in coordination of care (as documented) at patient's floor/unit and/or counseling patient: Coding Level of Care Code 38745 Subseq Hosp Care Lvl 2 Diagnoses UTI (urinary tract infection) N39.0 Urinary retention R33.9
[2020-04-20] MEDS ORDERED: POTASSIUM CHLORIDE CRTAB 20 MEQ TABCR PO STA (11:04)
--- NOTE | 2020-04-20 16:20 | Cardiology Consultation ---
Date of Consultation April 20, 2020 Assessment & Plan (1) Nonsustained ventricular tachycardia: The patient had 6 beats of nonsustained ventricular tachycardia. Interrogation of her device reveals rare episodes of similar arrhythmia. Two occurred in March and 1 occurred in October. She is not appear to have symptoms associated with this arrhythmia. She is unlikely to have symptoms with such a brief duration arrhythmia. In the absence of structural heart disease or ischemic heart disease I do not believe this is reason for concern. She has normal LV function without regional wall motion abnormalities as of May last year. Despite an extraordinary degree of anemia she did not have any evidence of myocardial ischemia. I Do not believe this arrhythmia requires further evaluation or treatment. (2) Pacemaker: Normal pacemaker function. Initially placed for symptomatic bradycardia in 2018. Normal device longevity. Arrhythmias as noted above. No other arrhythmias detected. Normal thresholds and sensing on both atrial and vent ricular leads. History of Present Illness Reason for Consultation: Ventricular tachycardia Requesting Physician: Kalia Attending Physician: Abdiel Motta MD History of Present Illness The patient is an 80-year-old woman with a prior history of symptomatic bradycardia and placement of dual-chamber permanent pacemaker in 2018. She presented to our facility with symptoms of weakness and a fall. She had been noted prior to admission to have had a dark bowel movement and nonbloody emesis. The patient has difficulty recalling most of these events. She cannot recall if she actually lost consciousness. She did not report symptoms of abdominal pain, chest discomfort or significant breathing difficulty. She was discovered to have a gastrointestinal hemorrhage in be severely anemic. She underwent a transfusion and endoscopy. This afternoon she claims to be feeling better. Again she denies any symptoms of chest discomfort or breathing difficulty. She has no abdominal discomfort. She generally speaking is not aware of any palpitations. She denies dizziness or lightheadedness. Again, she cannot recall if she lost consciousness prior to coming to the hospital. She was noted on telemetry to have 6 beats of wide complex rhythm earlier today. Allergies Allergy/AdvReac Type Severity Reaction Status Date / Time Iodinated Contrast Media Allergy Severe Anaphylaxis Verified 04/15/20 16:42 mold Allergy Unknown UNKNOWN Verified 04/15/20 16:42 pollen extracts Allergy Unknown UNKNOWN Verified 04/15/20 16:42 mushroom Allergy Verified 04/16/20 13:49 Dust Allergy Unknown UNKNOWN Uncoded 04/15/20 16:42 Fungi Allergy Unknown UNKNOWN Uncoded 04/15/20 16:42 Home Medications Home Medications Medication Instructions Recorded Confirmed Type atorvastatin 20 mg tablet 20 mg PO DAILY 03/03/19 04/15/20 History multivitamin 1 tab PO DAILY 03/03/19 04/15/20 History levothyroxine 112 mcg PO QAM 05/07/19 04/15/20 History OneTouch Ultra Blue Test Strip #500 ea NS 09/04/19 04/15/20 Rx pen needle, diabetic 31 gauge x See Rx Instructions .ROUTE 09/04/19 04/15/20 Rx /16" .COMPLEX #500 ea furosemide 40 mg tablet 40 mg PO QAM 02/15/20 04/15/20 History insulin glargine 100 unit/mL (3 12 unit SUBCUT HS ml 02/15/20 04/15/20 History mL) subcutaneous pen quetiapine 400 mg tablet 400 mg PO HS 02/15/20 04/15/20 History Novolog Flexpen U-100 Insulin 100 40 unit SUBCUT .COMPLEX #45 ml NS 02/23/20 04/15/20 Rx unit/mL (3 mL) subcutaneous amlodipine 10 mg PO DAILY 04/15/20 04/15/20 History pantoprazole 40 mg PO DAILY 04/15/20 04/15/20 History Patient History Medical History Anemia of chronic disease Anxiety Bipolar 1 disorder CKD (chronic kidney disease) stage 4, GFR 15-29 ml/min Diabetes type 2, controlled Disc degeneration, lumbar Fracture of parietal bone of skull GERD (gastroesophageal reflux disease) Jonathan's thyroiditis Hemorrhage, subdural, traumatic HLD (hyperlipidemia) Hyperparathyroidism Hypertension Hypothyroidism IBS (irritable bowel syndrome) Irritable bowel syndrome with constipation Osteopenia Pacemaker Subarachnoid, subdural, and extradural hemorrhage, following injury Surgical History H/O lumpectomy History of total abdominal hysterectomy and bilateral salpingo-oophorectomy Hx of cholecystectomy Family History Sister Colorectal cancer Other Cancer Diabetes History of hysterectomy Hypertension Stroke Social History Smoking Status: Never smoker Hx Alcohol Use: No Hx Substance Use: No Preferred Language: Kyrgyz Communication Ability: Effective Visual Impairment: No Limitations Hearing Ability: Normal Sustainment Logistics Analyst Required: No Beliefs That Will Affect Care: None marital status: Current Living Situation: Spouse Current Living Situation Comment: home health comes in to help with pt's Other Information That Helps Us Care for You: No Feels Safe at Home: Yes Safety Concerns: Feels Safe At This Time Assistive Devices: Glasses and Walker Review of Systems Review of Systems: All systems reviewed & are unremarkable except as noted in HPI & below Physical Exam Physical Exam: She is alert and oriented x3. Mood affect appear normal. She answered all questions appropriately. HEENT: Sclerae are anicteric. Pupils are equal and reactive to light and accommodation. Extraocular movements were intact. Neuro: Cranial nerves intact Neck: Examination of the submandibular region did not reveal any significant lymphadenopathy. Carotids are palpable bilaterally and free of bruits on auscultation. There was no evidence of jugular venous distention. The thyroid was not enlarged. Lungs: Lungs are clear to auscultation bilaterally. There are no rales wheezes or rhonchi. She has normal respiratory effort without use of accessory muscles. There is normal pulmonary excursion. Chest: Pacemaker implant right upper chest. Cardiac: The rhythm was regular. S1 and S2 were normal. There are no murmurs on examination. The PMI was not markedly displaced on palpation. Abdomen: The abdomen was soft and nontender. Extremities: Patient has bilateral radial pulses that are equal in intensity. There is no evidence cyanosis or clubbing. There was no evidence of significant peripheral edema bilaterally. Skin: There are no rashes noted on examination today. Results & Data ([facility]) Vital Signs (Past 12 Hours) Vital Signs Temp Pulse Pulse Resp BP Pulse Ox 04/20/20 11:11 36.6 C 84 16 162/81 H 97 04/20/20 07:58 36.9 C 79 20 164/69 H 98 04/20/20 07:00 69 Laboratory Results Abnormal Lab Results 04/19/20 04/19/20 04/20/20 16:33 20:26 07:13 WBC 5.17 RBC 2.56 L Hgb 7.9 L Hct 24.9 L MCV 97.3 MCH 30.9 MCHC 31.7 L RDW Std Deviation 52.1 H RDW Coeff of Tim 15.7 H Plt Count 204 MPV 10.4 Sodium Potassium Chloride Carbon Dioxide Anion Gap BUN Creatinine Est Cr Clr Drug Dosing Est GFR ( Amer) Est GFR (Non-Af Amer) BUN/Creatinine Ratio Glucose POC Glucose 165 H 234 H Calcium Magnesium 04/20/20 04/20/20 04/20/20 07:13 07:13 07:33 WBC RBC Hgb Hct MCV MCH MCHC RDW Std Deviation RDW Coeff of Tim Plt Count MPV Sodium 145 Potassium 3.7 Chloride 116 H Carbon Dioxide 25 Anion Gap 4.0 BUN 51 H Creatinine 2.06 H Est Cr Clr Drug Dosing 18.2 Est GFR ( Amer) 25.4 Est GFR (Non-Af Amer) 21.9 BUN/Creatinine Ratio 24.6 H Glucose 83 POC Glucose 97 Calcium 8.9 Magnesium 2.0 04/20/20 11:39 WBC RBC Hgb Hct MCV MCH MCHC RDW Std Deviation RDW Coeff of Tim Plt Count MPV Sodium Potassium Chloride Carbon Dioxide Anion Gap BUN Creatinine Est Cr Clr Drug Dosing Est GFR ( Amer) Est GFR (Non-Af Amer) BUN/Creatinine Ratio Glucose POC Glucose 193 H Calcium Magnesium Diagnostic Findings Echocardiogram performed 06/09/2019: Normal LV systolic function without regional wall motion abnormalities. No valvular heart disease. I performed a complete device interrogation of her dual-chamber permanent pacemaker. Normal device longevity. Three episodes of nonsustained VT. No other arrhythmias. Normal lead function. Some atrial pacing, no ventricular pacing. PG Care Time/CCT Total # of Minutes Spent Total Time Spent with Patient: Total time spent is greater than 50% in coordination of care (as documented) at patient's floor/unit and/or counseling patient: Coding Level of Care Code 04144 Initial Inpt Care Lvl 3 Diagnoses Nonsustained ventricular tachycardia I47.2 Pacemaker Z95.0 CPT Codes Dual Lead Pacemaker System - [id number] ([id number])
[2020-04-20] MEDS: QUEtiapine FUMARATE 200 MG TAB PO SCH (20:47)
[2020-04-20] MEDS: INSULIN GLARGINE SOLOSTAR 100 UNITS/ML 3 ML PEN SC SCH (20:50)
[2020-04-21] MEDS: LEVOTHYROXINE SODIUM 112 MCG TABLET PO SCH (05:28)
[2020-04-21 07:43] LABS: Hematocrit (blood only) 24.9 % (37-47); Hemoglobin 7.8 g/dL (12.0-16.0)
[2020-04-21 08:10] LABS: BUN Creatinine Ratio 29.6 (10-20); Calcium 8.7 mg/dl (8.5-10.1); Creatinine Clr Calc Pharmacy 17.6 ml/min; Est GFR (African American) 24.4; Magnesium 1.8 mg/dl (1.8-2.4); Phosphorus 3.4 mg/dl (2.5-4.9); Potassium 3.7 mmol/L (3.5-5.1)
[2020-04-21] MEDS: DOCUSATE SODIUM 100 MG CAP PO SCH (08:30)
[2020-04-21] MEDS: ACETAMINOPHEN 325 MG TAB PO PRN (08:30)
[2020-04-21] MEDS: LACTULOSE SYRUP 20 GM/30 ML UDC PO SCH (08:30)
[2020-04-21] MEDS: cephALEXin 250 MG CAP PO SCH (08:31)
[2020-04-21] MEDS: PANTOprazole 40 MG TAB PO SCH (08:31)
[2020-04-21] MEDS: ATORVASTATIN 10 MG TAB PO SCH (08:31)
[2020-04-21] MEDS: FUROSEMIDE 40 MG TAB PO SCH (08:31)
[2020-04-21] MEDS: amLODIPine BESYLATE 5 MG TAB PO SCH (08:31)
[2020-04-21] MEDS: SENNOSIDES 8.8 MG/5 ML UDC PO SCH (08:32)
[2020-04-21] MEDS: INSULIN ASPART 100 UNITS/ML 3 ML PEN SC SCH ×2 (08:35→12:20)
[2020-04-21] MEDS ORDERED: POTASSIUM CHLORIDE CRTAB 20 MEQ TABCR PO STA (09:17)
--- NOTE | 2020-04-21 09:18 | Hospitalist Progress Note ---
Date of Service April 21, 2020 Assessment & Plan (1) Anemia: (2) GI bleed: Patient presented from home with a suspected syncopal event and fall, reported black stool the day before In the ED, Hgb found to be 3.7 S/P EGD which showed blood in duodenum, nonbleeding duodenal ulcer with visible vessel that was injected and clipped. S/p 3PRBC Hb stable in 7s Monitor Hb and transfuse prn to keep >7 Tolerating diet well Completed iv ppi 72h Currently on po PPI BID for at least 3 months Outpatient follow-up with GI in 2-4 weeks. can use anusol cream BID per rectum for 2 weeks for hemorrhoids Hgb 7.8 on 04/21/20 (3) CKD (chronic kidney disease) stage 4, GFR 15-29 ml/min: Baseline creatinine around 2.4 Cr was 2.8 on admission YEVGENIY on CKD4 YEVGENIY resolved. Cr ~2 today Monitor and avoid nephrotoxins Resume lasix on discharge (4) Diabetes type 2, controlled: Hgb A1c 8.5 05/2019 Hb A1c now is 5.5 Monitor blood glucose Lantus and NovoLog per protocol while hospitalized (5) Hypertension: BP currently in 150s-160s systolic Resume lasix on discharge Continue amlodipine Episode of wide complex tachycardia - on 04/20/20 at about 11am - pt asymptomatic - had echo in 05/2019 - normal LV size and thickness. EF 65-70%, Grade 1 diastolic dysfunction, No sign. valvular pathology. No segmental ventr. wall motion abnormalities noted - hx of pacemaker - K and Mg normal, will keep K>4, Mg >2 - consulted w/ cardiology who reviewed pacer, no further testing or intervention indicated at this time (6) Bipolar 1 disorder: Continue Seroquel (7) Hypothyroidism: TSH 0.019, free T4 0.9 Continue levothyroxine (8) UTI (urinary tract infection): Urine culture grew E.coli Continue keflex 250mg bid (renally dosed) for 5 days to complete therapy For urinary retention, appreciate urology evaluation Matthew catheter placed again on 04/19, recommend to keep for at least 48 hrs (9) DVT prophylaxis: SCDs due to anemia/GI bleeding Dispo - PT/OT, needs home health services Patient vehemently refused psych evaluation for possible depression and any meds for that for now Will continue to monitor and 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 Pt denies any fever, chills, shortness of breath, dizziness, or chest pain. Due to to urinary retention Matthew placed again, no current issues. Per urology recommend to keep Matthew for at least 48 hours. Review of Systems Review of Systems: All systems reviewed & are unremarkable except as noted in HPI & below Constitutional: no fever and no chills Respiratory: no cough and no dyspnea Cardiovascular: no chest pain and no palpitations Gastrointestinal: no abdominal pain, no nausea and no vomiting Physical Exam Physical Exam: Constitutional: WD/WN, + well hydrated; no acute distress Eyes: PERRL, EOMI, conjunctivae normal, anicteric sclerae ENMT: external ear and nose normal, oropharynx normal Respiratory: normal respiratory effort, lungs clear to auscultation Cardiovascular: RRR, no murmur, no edema Gastrointestinal (Abdomen): normal bowel sounds, soft, nontender : Matthew catheter with clear yellow urine Musculoskeletal: no cyanosis or clubbing, extremities motor strength 5/5 Neurologic: PERRL, EOMI, no face palsy, no dysarthria Psychiatric: A+Ox3, euthymic affect Orientation: alert and oriented x 3 Affect: + flat affect Results & Data Results & Data ([facility]) Vital Signs (Past 12 Hours) Vital Signs Temp Pulse Pulse Resp BP BP Pulse Ox 04/21/20 07:06 36.8 C 82 16 149/68 H 99 04/21/20 07:00 69 04/21/20 04:00 36.7 C 78 16 100/62 100 04/21/20 00:00 79 04/20/20 23:02 36.8 C 80 18 154/72 H 97 Laboratory Results 04/21/20 04/21/20 04/21/20 Range/Units 07:51 07:26 07:26 Hgb 7.8 L (12.0-16.0) g/dL Hct 24.9 L (37-47) % Sodium 144 (136-145) mmol/L Potassium 3.7 (3.5-5.1) mmol/L Chloride 115 H (98-107) mmol/L Carbon Dioxide 24 (21-32) mmol/L Anion Gap 6.0 (3-11) BUN 63 H (7-18) mg/dl Creatinine 2.13 H (0.6-1.2) mg/dl Est Cr Clr Drug Dosing 17.6 ml/min Est GFR ( Amer) 24.4 Est GFR (Non-Af Amer) 21.0 BUN/Creatinine Ratio 29.6 H (10-20) Glucose 70 (70-99) mg/dl POC Glucose 77 (70-99) mg/dl Calcium 8.7 (8.5-10.1) mg/dl Phosphorus 3.4 (2.5-4.9) mg/dl Magnesium 1.8 (1.8-2.4) mg/dl 04/20/20 04/20/20 04/20/20 Range/Units 20:36 16:19 11:39 Hgb (12.0-16.0) g/dL Hct (37-47) % Sodium (136-145) mmol/L Potassium (3.5-5.1) mmol/L Chloride (98-107) mmol/L Carbon Dioxide (21-32) mmol/L Anion Gap (3-11) BUN (7-18) mg/dl Creatinine (0.6-1.2) mg/dl Est Cr Clr Drug Dosing ml/min Est GFR ( Amer) Est GFR (Non-Af Amer) BUN/Creatinine Ratio (10-20) Glucose (70-99) mg/dl POC Glucose 204 H 175 H 193 H (70-99) mg/dl Calcium (8.5-10.1) mg/dl Phosphorus (2.5-4.9) mg/dl Magnesium (1.8-2.4) mg/dl 04/20/20 Range/Units 07:13 Hgb (12.0-16.0) g/dL Hct (37-47) % Sodium (136-145) mmol/L Potassium (3.5-5.1) mmol/L Chloride (98-107) mmol/L Carbon Dioxide (21-32) mmol/L Anion Gap (3-11) BUN (7-18) mg/dl Creatinine (0.6-1.2) mg/dl Est Cr Clr Drug Dosing ml/min Est GFR ( Amer) Est GFR (Non-Af Amer) BUN/Creatinine Ratio (10-20) Glucose (70-99) mg/dl POC Glucose (70-99) mg/dl Calcium (8.5-10.1) mg/dl Phosphorus (2.5-4.9) mg/dl Magnesium 2.0 (1.8-2.4) mg/dl Medications Administered Current Inpatient Medications Acetaminophen (Acetaminophen 325 Mg Tab) 650 mg PO Q4H PRN PRN Reason: Pain Stop: 05/18/20 16:36 Last Admin: 04/21/20 08:30 Dose: 650 mg Documented by: Amlodipine Besylate (Amlodipine Besylate 5 Mg Tab) 10 mg PO QAM [facility] Stop: 05/16/20 08:59 Last Admin: 04/21/20 08:31 Dose: 10 mg Documented by: Atorvastatin Calcium ([facility] 10 Mg Tab) [facility]: 05/16/20 08:59 Last Admin: 04/21/20 08:31 Dose: 10 mg Documented by: Cephalexin HCl (Cephalexin 250 Mg Cap) 250 mg PO BID [facility]; Protocol Stop: 04/23/20 10:59 Last Admin: 04/21/20 08:31 Dose: 250 mg Documented by: Dextrose (Dextrose 50% 50 Ml Syringe) 25 - 50 ml IV UD PRN; Protocol PRN Reason: Hypoglycemia Protocol Stop: 05/16/20 08:46 Docusate Sodium (Docusate Sodium 100 Mg Cap) 100 mg PO DAILY [facility] Stop: 05/17/20 12:14 Last Admin: 04/21/20 08:30 Dose: 100 mg Documented by: Furosemide (Furosemide 40 Mg Tab) [facility] Stop: 05/16/20 08:59 Furosemide (Furosemide 40 Mg Tab) 40 mg PO [facility] Stop: 05/20/20 08:59 Last Admin: 04/21/20 08:31 Dose: 40 mg Documented by: Glucagon (Glucagon For Inj 1 Mg Vial) 1 mg SQ UD PRN; Protocol PRN Reason: Hypoglycemia Protocol Stop: 05/16/20 08:46 Glucose (Glucose 10 Tabs/Tube) 4 - 8 tabs PO UD PRN; Protocol PRN Reason: Hypoglycemia Protocol Stop: 05/16/20 08:46 Glucose (Glucose 40% Gel 15 Gm Tube) 15 - 30 gm PO UD PRN; Protocol PRN Reason: Hypoglycemia Protocol Stop: 05/16/20 08:46 Insulin Aspart (Insulin Aspart 100 Units/Ml 3 Ml Pen) 0 units SC ACHS [facility] Stop: 05/16/20 11:29 Last Admin: 04/21/20 08:35 Dose: Not Given Documented by: Insulin Glargine (Insulin Glargine Solostar 100 Units/Ml 3 Ml Pen) 12 units SC HS [facility] Stop: 05/16/20 20:59 Last Admin: 04/20/20 20:50 Dose: 12 units Documented by: Lactulose (Lactulose Syrup 20 Gm/30 Ml Udc) 20 gm PO DAILY [facility] Stop: 05/17/20 12:14 Last Admin: 04/21/20 08:30 Dose: 20 gm Documented by: Levothyroxine Sodium (Levothyroxine Sodium 112 Mcg Tablet) 112 mcg PO DAILYBB [facility] Stop: 05/16/20 06:29 Last Admin: 04/21/20 05:28 Dose: 112 mcg Documented by: Miscellaneous (Carbohydrates For Hypoglycemia ) 15 - 30 gm PO UD PRN PRN Reason: Hypoglycemia Protocol Stop: 05/16/20 08:46 Pantoprazole Sodium (Pantoprazole 40 Mg Tab) 40 mg PO BID [facility] Stop: 05/18/20 20:59 Last Admin: 04/21/20 08:31 Dose: 40 mg Documented by: Potassium Chloride (Potassium Chloride 20 Meq Tabcr) 20 meq PO NOW STA Stop: 04/21/20 09:18 Quetiapine Fumarate (Quetiapine Fumarate 200 Mg Tab) 400 mg PO HS [facility] Stop: 05/15/20 20:59 Last Admin: 04/20/20 20:47 Dose: 400 mg Documented by: Sennosides (Sennosides 8.8 Mg/5 Ml Udc) 8.8 mg PO QAM [facility] Stop: 05/18/20 08:59 Last Admin: 04/21/20 08:32 Dose: 8.8 mg Documented by: (1) Diabetes type 2, controlled Diabetes mellitus complication status: with unspecified complications Diabetes mellitus assisted insulin use: with assisted use Qualified Code(s): E11.8 - Type 2 diabetes mellitus with unspecified complications; Z79.4 - group home (current) use of insulin (2) Hypertension Hypertension type: essential hypertension Qualified Code(s): I10 - Essential (primary) hypertension
[2020-04-21] MEDS ORDERED: MAGNESIUM OXIDE 400 MG TAB PO SCH (09:30)
[2020-04-21] MEDS ORDERED: ADVANCED PROBIOTIC 1250 MG CAPSULE PO SCH (13:00)
--- NOTE | 2020-04-21 13:05 | Discharge Summary ---
Date of Service April 21, 2020 Admission HPI Per Admitting Provider 80-year-old female with PMH DM type II, CKD stage IV, hypothyroidism, bipolar disorder, and other problems listed below who presents to the ED for evaluation of generalized weakness and fall. History is limited from the patient. History is obtained from ED documentation. Patient reports that yesterday she felt lightheaded after standing up from the toilet and subsequently fell to the ground. She is unsure if she had loss of consciousness. Caregiver found her on the floor this afternoon. Caregiver also reported that patient had had a black bowel movement. She also apparently had several nonbloody emesis yesterday. Patient was brought to the ED for further evaluation. Patient currently denies chest pain and shortness of breath. No abdominal pain. Denies any other recent illnesses, fevers, chills. No urinary symptoms. In the ED, patient is found to have hemoglobin 3.7. Patient was hypoxic on room air at 85%, currently saturating well with oxygen via nasal cannula. BP and heart rate are stable. Patient was given IVF and given Protonix bolus and started on a drip. She was also typed and crossed for 3 unit PRBC. Admission Exam Per Admitting Provider Constitutional: WD/WN, vitals as above + ill appearing Eyes: PERRL, conjunctivae normal, anicteric sclerae ENMT: external ear and nose normal, oropharynx normal Respiratory: normal respiratory effort, lungs clear to auscultation Cardiovascular: Rate/Rhythm: regular rate and regular rhythm Vessels: normal peripheral pulses Extremities: no edema Gastrointestinal (Abdomen): normal bowel sounds, soft, nontender, no hepatosplenomegaly Musculoskeletal: no cyanosis or clubbing, extremities motor strength 5/5 Skin: no rashes, warm and dry + pallor Neurologic: PERRL, EOMI, accommodation nl, no face palsy, no dysarthria Psychiatric: Orientation: alert and oriented x 3 Affect: + flat affect Insight: + limited insight Principal Diagnosis Anemia due to duodenal ulcer bleed UTI, urinary retention Discharge Exam Constitutional: WD/WN, + well hydrated; no acute distress Eyes: PERRL, EOMI, conjunctivae normal, anicteric sclerae ENMT: external ear and nose normal, oropharynx normal Respiratory: normal respiratory effort, lungs clear to auscultation Cardiovascular: RRR, no murmur, no edema Gastrointestinal (Abdomen): normal bowel sounds, soft, nontender : Matthew catheter with clear yellow urine Musculoskeletal: no cyanosis or clubbing, extremities motor strength 5/5 Neurologic: PERRL, EOMI, no face palsy, no dysarthria Psychiatric: A+Ox3, euthymic affect Orientation: alert and oriented x 3 Affect: + flat affect Discharge Data Allergies Allergy/AdvReac Type Severity Reaction Status Date / Time Iodinated Contrast Media Allergy Severe Anaphylaxis Verified 04/15/20 16:42 mold Allergy Unknown UNKNOWN Verified 04/15/20 16:42 pollen extracts Allergy Unknown UNKNOWN Verified 04/15/20 16:42 mushroom Allergy Verified 04/16/20 13:49 Dust Allergy Unknown UNKNOWN Uncoded 04/15/20 16:42 Fungi Allergy Unknown UNKNOWN Uncoded 04/15/20 16:42 Consultations 04/15/20 17:56 ED Decision to Admit Stat 04/15/20 21:00 Consult Case Management - Discharge Planning Routine Consult Gastroenterology Routine Consult Office Services Representative Routine 04/19/20 09:17 Consult Urology Routine 04/20/20 11:48 Consult Cardiology Routine Procedures Performed Operation Date: 04/15/20 23:00 Actual Procedures p Esophagogastroduodenoscopy - Nikolas Alvarado MD Operation Date: 04/16/20 07:30 <No data on this case meets the specified criteria> Ordered Studies 04/15/20 15:09 CT cervical spine wo con Stat IMPRESSION: No acute fracture or subluxation. CT head/brain wo con Stat IMPRESSION: There is no hemorrhage, mass effect, or evidence of acute territorial ischemia by CT criteria. Hospital Course (1) Anemia: (2) GI bleed: Patient presented from home with a suspected syncopal event and fall, reported black stool the day before In the ED, Hgb found to be 3.7 S/P EGD which showed blood in duodenum, nonbleeding duodenal ulcer with visible vessel that was injected and clipped. S/p 3PRBC Hb stable in 7s Monitor Hb and transfuse prn to keep >7 Tolerating diet well Completed iv ppi 72h Currently on po PPI BID for at least 3 months Outpatient follow-up with GI in 4 weeks. can use anusol cream BID per rectum for 2 weeks for hemorrhoids Hgb 7.8 on 04/21/20 (3) CKD (chronic kidney disease) stage 4, GFR 15-29 ml/min: Baseline creatinine around 2.4 Cr was 2.8 on admission YEVGENIY on CKD4 YEVGENIY resolved. Cr ~2 today Monitor and avoid nephrotoxins Resume lasix on discharge (4) Diabetes type 2, controlled: Hgb A1c 8.5 05/2019 Hb A1c now is 5.5 Monitor blood glucose Lantus and NovoLog per protocol while hospitalized (5) Hypertension: BP currently in 150s-160s systolic Resume lasix on discharge Continue amlodipine Episode of wide complex tachycardia - on 04/20/20 at about 11am - pt asymptomatic - had echo in 05/2019 - normal LV size and thickness. EF 65-70%, Grade 1 diastolic dysfunction, No sign. valvular pathology. No segmental ventr. wall motion abnormalities noted - hx of pacemaker - K and Mg normal, will keep K>4, Mg >2 - consulted w/ cardiology who reviewed pacer, no further testing or intervention indicated at this time (6) Bipolar 1 disorder: Continue Seroquel (7) Hypothyroidism: TSH 0.019, free T4 0.9 Continue levothyroxine (8) UTI (urinary tract infection): Urine culture grew E.coli Continue keflex 250mg bid (renally dosed) for 5 days to complete therapy For urinary retention, appreciate urology evaluation Matthew catheter placed again on 04/19, recommend to keep for at least 48 hrs (9) DVT prophylaxis: SCDs due to anemia/GI bleeding Dispo - PT/OT, needs home health services Patient vehemently refused psych evaluation for possible depression and any meds for that for now Will continue to monitor and mental health counselor Total Time Total Time Spent Total Time Spent (In Minutes): 40 Total Time Includes: Examination of the Patient, Discharge Planning, Medication Reconciliation and Communication With Other Providers Discharge Plan Discharge Items Patient Disposition: Home - Home Health Services Reason For Visit: WEAKNESS Discharge Diagnosis: Anemia due to duodenal ulcer bleed UTI, urinary retention Activity: Per Instructions section Non-emergency contact: Primary Care Provider Call non-emergency contact if: you have any medication questions and your symptoms worsen Follow-up/Referrals: Martine Mcclendon CRNP [Nurse Practitioner] - 04/25/20 2:00 pm Usama eMadows MD [Primary Care Provider] - (Date & Time 04/26/2020 11:00 AM Provider Usama Meadows MD Department Family Practice [facility] ) Diet: Carb Consistent or DM2 and Heart Healthy Diet Texture: Easy to Chew Addtl Attending Provider Instructions: Follow-up with your primary care doctor, the appointment was scheduled for you for 04/26. You will need to take Protonix, 40 mg twice a day for at least 3 months. This is important for your duodenal ulcer to heal. You need to follow-up with gastroenterology in 2 to 4 weeks. You will be contacted about the appointment. For your urinary tract infection, take Keflex 250 mg twice a day for next 2 days. In the next couple of days, Matthew catheter should be removed, and voiding trial performed. If you continue to have urinary retention, you may need to see a urologist. Appointment with urology was scheduled for you for April 25. For constipation, you can take [id number] stool softeners, such as MiraLAX, senna. You can discuss further with your primary care doctor. Pending Studies at Discharge: No Stand-Alone Forms: My [facility], Smoking Cessation Medications and DC Order Prescriptions: New cephalexin 250 mg Capsule 250 mg PO BID 2 Days Qty: 4 RF: 0 pantoprazole 40 mg Tablet,Delayed Release (Dr/Ec) 40 mg PO BID 30 Days Qty: 60 RF: 0 Continued pen needle, diabetic [Unifine Pentips] 31 gauge x 5/16" needle See Rx Instructions .ROUTE .COMPLEX Qty: 500 RF: 3 (DME) OneTouch Ultra Blue Test Strip Strip See Rx Instructions .ROUTE .MEDSUPPLY Qty: 500 RF: 3 Novolog Flexpen U-100 Insulin 100 unit/mL (3 mL) insulin pen 40 unit SUBCUT .COMPLEX Qty: 45 RF: 3 quetiapine 400 mg tablet 400 mg PO HS RF: 0 furosemide 40 mg tablet 40 mg PO QAM RF: 0 Lantus Solostar U-100 Insulin 100 unit/mL (3 mL) insulin pen 12 unit SUBCUT HS RF: 0 multivitamin tablet 1 tab PO DAILY RF: 0 atorvastatin 20 mg tablet 20 mg PO DAILY RF: 0 amlodipine 10 mg tablet 10 mg PO DAILY RF: 0 pantoprazole 40 mg tablet,delayed release (DR/EC) 40 mg PO DAILY RF: 0 levothyroxine 112 mcg tablet 112 mcg PO QAM RF: 0 Discharge Orders: Discharge Order (Routine); Ordered 04/21/20 Ordered By: Abdiel Motta Admission Data Admit Date/Time: 04/15/20 18:04 Attending Provider: Abdiel Motta Admit Provider: Simin Braden Primary Care Provider: Usama Meadows Other Providers: Simin Braden ; Nikolas Alvarado ; Zhao Best ; Ubaldo Solo ; Yaz Castillo I. ; Ubaldo Otto
== END 2020-04-21 15:18 | disposition home health service (06) | DRG 378 ==
LOC: ED 14:47 → 1E 18:04 → SUATTDRO 18:04 → 1E 18:59 → 2N 04-16 15:46 → 2W 04-17 10:50

== ENCOUNTER 2020-05-28 14:54 | Inpatient (IN) ==
[2020-05-28] MEDS ORDERED: ONDANSETRON INJ 2 MG/ML 2 ML VIAL IV STA (15:17)
--- NOTE | 2020-05-28 15:24 | Emergency Department Note ---
History of Present Illness General Chief complaint: GI Assessment Stated complaint: GI BLEED Time Seen by Provider: 05/28/20 15:09 Source: patient History of Present Illness Provider complaint: Abdominal pain Onset (ago): hour(s) Location: abdomen, left and right Radiation: non-radiation Severity: moderate Pain Consistency: + colicky Quality: + other (Cramping) Relieved By: + none Associated symptoms: + nausea/vomiting; no chest pain, no cough, no fever/chills and no shortness of breath This is a 89-year-old female who presents with abdominal pain starting today. She describes it as a crampy pain involving her lower abdomen. She states it is intermittent. No alleviating factors. It is associated with constipation for the past 5 days. She did use a laxative and had a bowel movement yesterday which her caregiver told her was black in color. She also had an episode of vomiting today which her caregiver stated was black. She denies seeing any blood in her stool. She denies any NSAID use or anticoagulation. She feels slightly weak but otherwise has no other complaints. She denies any chest pain, shortness of breath, fever, cough or cold symptoms or known exposure to COVID- 19. Home Medications Medication Instructions Recorded Confirmed Type atorvastatin 20 mg tablet 20 mg PO DAILY 03/03/19 05/28/20 History multivitamin 1 tab PO DAILY 03/03/19 05/28/20 History levothyroxine 112 mcg PO QAM 05/07/19 05/28/20 History furosemide 40 mg tablet 40 mg PO QAM 02/15/20 05/28/20 History insulin glargine 100 unit/mL (3 12 unit SUBCUT HS ml 02/15/20 05/28/20 History mL) subcutaneous pen quetiapine 400 mg tablet 400 mg PO HS 02/15/20 05/28/20 History amlodipine 10 mg PO DAILY 04/15/20 05/28/20 History insulin aspart U-100 [Novolog 40 unit SUBCUT DIRECTED 05/15/20 05/28/20 History Flexpen U-100 Insulin] psyllium husk (aspartame) 2.5 g PO DAILY #660 g 05/15/20 05/28/20 Rx [Metamucil [facility] Fiber] sennosides [senna] 17.2 mg PO DAILY #60 cap 05/15/20 05/28/20 Rx lactulose 30 ml PO DAILY 05/28/20 05/28/20 History pantoprazole 40 mg PO QAM 05/28/20 05/28/20 History Allergies Allergy/AdvReac Type Severity Reaction Status Date / Time Iodinated Contrast Media Allergy Severe Anaphylaxis Verified 05/28/20 16:36 mold Allergy Unknown UNKNOWN Verified 05/28/20 16:36 pollen extracts Allergy Unknown UNKNOWN Verified 05/28/20 16:36 mushroom Allergy Verified 05/28/20 16:37 Dust Allergy Unknown UNKNOWN Uncoded 05/28/20 16:37 Fungi Allergy Unknown UNKNOWN Uncoded 05/28/20 16:37 Past Med/Surg History Medical History Anemia of chronic disease Anxiety Bipolar 1 disorder CKD (chronic kidney disease) stage 4, GFR 15-29 ml/min Diabetes type 2, controlled Disc degeneration, lumbar Fracture of parietal bone of skull GERD (gastroesophageal reflux disease) Jonathan's thyroiditis Hemorrhage, subdural, traumatic HLD (hyperlipidemia) Hyperparathyroidism Hypertension Hypothyroidism IBS (irritable bowel syndrome) Irritable bowel syndrome with constipation Osteopenia Pacemaker Subarachnoid, subdural, and extradural hemorrhage, following injury Surgical History H/O lumpectomy History of total abdominal hysterectomy and bilateral salpingo-oophorectomy Hx of cholecystectomy Family History Sister Colorectal cancer Other Cancer Diabetes History of hysterectomy Hypertension Stroke Social History Smoking Status: Never smoker Hx Alcohol Use: No Hx Substance Use: No Preferred Language: Salvadorean Communication Ability: Effective Visual Impairment: No Limitations Hearing Ability: Normal Sole Scraper Required: No Beliefs That Will Affect Care: None marital status: Current Living Situation: Spouse Current Living Situation Comment: home health comes in to help with pt's Feels Safe at Home: Yes Assistive Devices: Walker Review of Systems See HPI for pertinent positives & negatives. and A total of 10 systems reviewed and were otherwise negative Physical Exam Vital Signs Vital Signs - 24 hr 05/28/20 15:01 05/28/20 17:01 05/28/20 19:17 Temperature 37 C Temperature Source Oral Pulse Rate 84 80 Pulse Rate [Right Finger] 81 Pulse Rhythm Regular Pulse Rhythm [Right Finger] Regular Pulse Strength Normal Pulse Strength [Right Finger] Respiratory Rate 18 18 18 Respiratory Effort / Characteristics Non-Labored Spontaneous Respiratory Depth Normal Respiratory Pattern Regular Blood Pressure 129/87 142/90 H Blood Pressure [Right Arm] 135/71 Blood Pressure Mean 101 Blood Pressure Mean [Right Arm] 92 Blood Pressure Position Sitting Pulse Oximetry 97 98 97 Oxygen Delivery Method Room Air Room Air Room Air Sepsis Recent Fever Within 48 Hours No Sepsis New/Unexplained Change in Mental Status N/A Sepsis Action Taken by Nursing No Action Required 05/28/20 19:18 Temperature Temperature Source Pulse Rate Pulse Rate [Right Finger] 73 Pulse Rhythm Pulse Rhythm [Right Finger] Regular Pulse Strength Pulse Strength [Right Finger] Normal Respiratory Rate 16 Respiratory Effort / Characteristics Non-Labored Respiratory Depth Normal Respiratory Pattern Regular Blood Pressure Blood Pressure [Right Arm] 142/90 H Blood Pressure Mean Blood Pressure Mean [Right Arm] 107 Blood Pressure Position Pulse Oximetry 99 Oxygen Delivery Method Room Air Sepsis Recent Fever Within 48 Hours Sepsis New/Unexplained Change in Mental Status Sepsis Action Taken by Nursing Constitutional: Vital signs reviewed. Eyes: Pupils are equal round reactive to light. Conjunctiva are noninjected. ENT: Pharynx is clear without erythema or exudate. Mucous membranes are moist. Neck supple without meningeal signs. Respiratory: Clear to auscultation bilaterally. Breath sounds are equal bilaterally. Cardiovascular: Regular rate and rhythm. No rubs or gallops. GI: Soft, distended with tenderness in the left lower quadrant. No guarding. Bowel sounds are present. Rectal: Guaiac positive light brown stool. No blood is noted. Nonbleeding external hemorrhoids. Musculoskeletal: No peripheral edema. No lower extremity tenderness. Integumentary: No cyanosis. or jaundice. Neurological: The patient is awake and alert. No focal deficits. Psychiatric: Normal affect. Not anxious appearing. Course Administered Medications Discontinued Medications Ondansetron HCl (Ondansetron Inj 2 Mg/Ml 2 Ml Vial) 4 mg IV NOW STA Stop: 05/28/20 15:18 Last Admin: 05/28/20 17:16 Dose: Not Given Documented by: [id number] Ondansetron HCl (Ondansetron 4 Mg Od Tab) Confirm Administered Dose 4 mg .ROUTE .[facility] Stop: 05/28/20 16:07 Last Admin: 05/28/20 16:10 Dose: 4 mg Documented by: [id number] Medical Decision Making Differential Diagnosis Constipation, fecal impaction, bowel obstruction, diverticulitis, diverticulosis, hematemesis, GI bleed Medical Records Attestation: I reviewed the patient's medical records. The patient was seen here approximately 2 weeks ago for abdominal pain and constipation. She had a CT scan of the abdomen pelvis which demonstrated stercoral colitis and fecal impaction. She was disimpacted and discharged home. Home Medications Current Medication List: was personally reviewed by me Laboratory Data Attestation: I reviewed the patient's lab results. Result diagrams: 05/28/20 16:43 05/28/20 16:43 Lab Results 05/28/20 05/28/20 05/28/20 Range/Units 16:43 16:43 Unknown WBC 7.34 (4.8-10.8) K/uL RBC 3.48 L (4.2-5.4) M/uL Hgb 10.3 L (12.0-16.0) g/dL Hct 30.6 L (37-47) % MCV 87.9 (80-100) fL MCH 29.6 (25-34) pg MCHC 33.7 (32-36) g/dL RDW Std Deviation 43.8 (36.4-46.3) fL RDW Coeff of Tim 13.8 (11.5-14.5) % Plt Count 265 (130-400) K/uL MPV 11.6 H (7.4-10.4) fL Immature Gran % (Auto) 0.7 % Neut % (Auto) 75.8 % Lymph % (Auto) 16.6 % Mckinley % (Auto) 6.3 % Eos % (Auto) 0.3 % Baso % (Auto) 0.3 % Neut # (Auto) 5.57 (1.4-6.5) K/uL Lymph # (Auto) 1.22 (1.2-3.4) K/uL Mckinley # (Auto) 0.46 (0.11-0.59) K/uL Eos # (Auto) 0.02 (0-0.5) K/uL Baso # (Auto) 0.02 (0-0.2) K/uL Immature Gran # (Auto) 0.05 H (0.00-0.02) K/uL Sodium 125 L (136-145) mmol/L Potassium 3.5 (3.5-5.1) mmol/L Chloride 90 L (98-107) mmol/L Carbon Dioxide 24 (21-32) mmol/L Anion Gap 12.0 H (3-11) BUN 50 H (7-18) mg/dl Creatinine 2.23 H (0.6-1.2) mg/dl Est Cr Clr Drug Dosing 16.7 ml/min Est GFR ( Amer) 23.0 Est GFR (Non-Af Amer) 19.9 BUN/Creatinine Ratio 22.5 H (10-20) Glucose 151 H (70-99) mg/dl Calcium 9.4 (8.5-10.1) mg/dl Total Bilirubin 0.4 (0.2-1) mg/dl AST 28 (15-37) U/L ALT 15 (12-78) U/L Alkaline Phosphatase 327 H (45-117) U/L Total Protein 7.5 (6.4-8.2) gm/dl Albumin 3.9 (3.4-5.0) gm/dl Globulin 3.6 (2.5-4.0) gm/dl Albumin/Globulin Ratio 1.1 (0.9-2) Lipase 74 (73-393) U/L SARS-CoV-2 Ag (Rapid) Negative (Negative) Imaging Data Radiologist's Impression: CT SCAN OF THE ABDOMEN AND PELVIS WITHOUT IV CONTRAST CLINICAL HISTORY: Left lower quadrant abdominal pain. COMPARISON STUDY: Abdominal CT dated 05/15/2020 TECHNIQUE: CT scan of the abdomen and pelvis is performed from the lung bases to the proximal femora. Images are reviewed in the axial, sagittal, and coronal planes. IV contrast was not administered for this examination. Note that the examination was performed in significantly suboptimal fashion without oral and IV contrast. A dose lowering technique was utilized adhering to the principles of ALARA. CT DOSE: 357.71 mGy.cm FINDINGS: Lung bases: The heart is enlarged noting trace pericardial effusion. Pacemaker leads are noted. A fat-containing Bochdalek hernia is seen at the left lung base. There is bibasilar scarring/atelectasis. No airspace consolidation or pleu ral effusion is identified. There is a moderate hiatal hernia. Liver: The unenhanced liver is normal in size, contour, and attenuation. There is no intrahepatic biliary ductal dilatation. Gallbladder: Surgically absent noting clips in the gallbladder fossa. Spleen: Normal in size and attenuation. Pancreas: Atrophic and grossly unremarkable. Adrenal glands: Unremarkable. Kidneys: The unenhanced kidneys demonstrate cortical atrophy and are without hydronephrosis. There are no renal calculi identified. Numerous bilateral renal cysts measure up to 4.4 cm. Abdominal vasculature: There is moderate to advanced atherosclerotic calcification and mild ectasia of the abdominal aorta. Bowel: There is severe constipation with associated colonic distention. The sigmoid measures up to 8 cm in diameter. There is no significant colonic wall thickening or pericolonic inflammation. No focal transition point is identified, and the colon is distended to the lower rectum. The small bowel loops are normal in caliber. The appendix is not identified and reported surgically absent. Peritoneum: There is no intraperitoneal free air. Trace free fluid is seen in the right paracolic gutter and pelvis. Lymphadenopathy: None. Pelvic viscera: The bladder is distended but otherwise normal in appearance. The uterus is surgically absent. No adnexal lesion is seen. There are small bilateral fat-containing inguinal hernias. Skeletal structures: The skeletal structures are osteopenic. There is a chronic compression deformity of T12. Lumbosacral spondylosis is noted. No lytic or blastic lesions are seen. IMPRESSION: 1. Severe constipation with associated colonic distention. 2. There is no colonic wall thickening or pericolonic inflammation. 3. The small bowel loops are normal in caliber. 4. Trace free fluid is seen in the paracolic gutters and pelvis. 5. Additional findings as above. ACT 112: Negative or not required by law. Electronically signed by: Josesito Schmitt M.D. 05/28/2020 4:25 PM Dictated: 05/28/201616 Transcribed: 05/28/201616 [facility] Narrative I did evaluate the patient as noted above. The patient is presenting with abdominal pain, hematemesis and rectal bleeding with constipation. On examination she has a distended abdomen with tenderness in the left lower quadrant. She is guaiac positive with light brown stool but no melena. There is no gross blood present. IV access was established. I did treat her with Zofran. I did place an order for continuous cardiac monitoring. The monitor showed normal sinus rhythm at a rate of 72 bpm. I did order a type and screen. I did order and review the patient's blood work as noted in the electronic medical record. Hemoglobin is stable at 10.3. She has chronic kidney disease with a creatinine of 2.2. She has hyponatremia with a sodium of 125. I did ord er a CT of the abdomen and pelvis. I did review the images myself as well as the radiology report as described above. There is no evidence of obstruction but she does have severe constipation with colonic distention. There is no inflammation. I did discuss the test results with the patient. A milk and molasses enema was ordered. She will be hospitalized for further care and evaluation including repeat H&H's as well as laxatives. I did discuss the case with the hospitalist and nurse outreach case manager. Impression & Plan Colon distention, Anemia, Constipation, Hyponatremia, Hematemesis, Rectal bleeding Discharge Plan Visit Data Chief Complaint: GI Assessment Stated Complaint: GI BLEED ED Provider: J Carlos Hurst Discharge Problem: Colon distention, Anemia, Constipation, Hyponatremia, Hematemesis, Rectal bleeding Patient Disposition: Admitted As Inpatient Discharge Instructions Interventions: ED Discharge Assessment Last Done: 05/28/20 19:17 Forms Stand Alone Forms: My [facility] Prescriptions Prescriptions: No Action quetiapine 400 mg tablet 400 mg PO HS RF: 0 furosemide 40 mg tablet 40 mg PO QAM RF: 0 Lantus Solostar U-100 Insulin 100 unit/mL (3 mL) insulin pen 12 unit SUBCUT HS RF: 0 multivitamin tablet 1 tab PO DAILY RF: 0 atorvastatin 20 mg tablet 20 mg PO DAILY RF: 0 amlodipine 10 mg tablet 10 mg PO DAILY RF: 0 levothyroxine 112 mcg tablet 112 mcg PO QAM RF: 0 insulin aspart U-100 [Novolog Flexpen U-100 Insulin] 100 unit/mL (3 mL) insulin pen 40 unit SUBCUT DIRECTED RF: 0 senna 8.6 mg capsule 17.2 mg PO DAILY Qty: 60 RF: 0 Metamucil [facility] Fiber 3.4 gram/5.8 gram powder 2.5 g PO DAILY Qty: 660 RF: 0 pantoprazole 40 mg tablet,delayed release (DR/EC) 40 mg PO QAM RF: 0 lactulose 10 gram/15 mL solution 30 ml PO DAILY RF: 0 Referrals Referrals: Usama Meadows MD [Primary Care Provider] -
[2020-05-28] MEDS ORDERED: ONDANSETRON 4 MG OD TAB ONE (16:06)
--- NOTE | 2020-05-28 16:27 | CT Scan Report ---
CT SCAN OF THE ABDOMEN AND PELVIS WITHOUT IV CONTRAST CLINICAL HISTORY: Left lower quadrant abdominal pain. COMPARISON STUDY: Abdominal CT dated 05/15/2020 TECHNIQUE: CT scan of the abdomen and pelvis is performed from the lung bases to the proximal femora. Images are reviewed in the axial, sagittal, and coronal planes. IV contrast was not administered for this examination. Note that the examination was performed in significantly suboptimal fashion withou t oral and IV contrast. A dose lowering technique was utilized adhering to the principles of ALARA. CT DOSE: 357.71 mGy.cm FINDINGS: Lung bases: The heart is enlarged noting trace pericardial effusion. Pacemaker leads are noted. A fat -containing Bochdalek hernia is seen at the left lung base. There is bibasilar scarring/atelectasis. No airspace consolidation or pleural effusion is identified. There is a moderate hiatal hernia. Liver: The unenhanced liver is normal in size, contour, and attenuation. There is no intrahepatic lio iary ductal dilatation. Gallbladder: Surgically absent noting clips in the gallbladder fossa. Spleen: Normal in size and attenuation. Pancreas: Atrophic and grossly unremarkable. Adrenal glands: Unremarkable. Kidneys: The unenhanced kidneys demonstrate cortical atrophy and are without hydronephrosis. There ar e no renal calculi identified. Numerous bilateral renal cysts measure up to 4.4 cm. Abdominal vasculature: There is moderate to advanced atherosclerotic calcification and mild ectasia o f the abdominal aorta. Bowel: There is severe constipation with associated colonic distention. The sigmoid measures up to 8 cm in diameter. There is no significant colonic wall thickening or pericolonic inflammation. No focal transition point is identified, and the colon is distended to the lower rectum. The small bowel loop s are normal in caliber. The appendix is not identified and reported surgically absent. Peritoneum: There is no intraperitoneal free air. Trace free fluid is seen in the right paracolic gut ter and pelvis. Lymphadenopathy: None. Pelvic viscera: The bladder is distended but otherwise normal in appearance. The uterus is surgically absent. No adnexal lesion is seen. There are small bilateral fat-containing inguinal hernias. Skeletal structures: The skeletal structures are osteopenic. There is a chronic compression deformity of T12. Lumbosacral spondylosis is noted. No lytic or blastic lesions are seen. IMPRESSION: 1. Severe constipation with associated colonic distention. 2. There is no colonic wall thickening or pericolonic inflammation. 3. The small bowel loops are normal in caliber. 4. Trace free fluid is seen in the paracolic gutters and pelvis. 5. Additional findings as above. ACT 112: Negative or not required by law. Electronically signed by: Josesito Schmitt M.D. 05/28/2020 4:25 PM
[2020-05-28 16:53] LABS: Basophils # (auto) 0.02 K/uL (0-0.2); Basophils % (auto) 0.3 %; Eosinophils # (auto) 0.02 K/uL (0-0.5); Eosinophils % (auto) 0.3 %; Hematocrit (blood only) 30.6 % (37-47); Hemoglobin 10.3 g/dL (12.0-16.0); Immature Granulocytes # (auto) 0.05 K/uL (0.00-0.02); Immature Granulocytes % (auto) 0.7 %; Lymphocytes # (auto) 1.22 K/uL (1.2-3.4); Lymphocytes % (auto) 16.6 %; Mean Corpuscular Hemoglobin 29.6 pg (25-34); Mean Corpuscular Hgb Conc 33.7 g/dL (32-36); Mean Corpuscular Volume 87.9 fL (80-100); Mean Platelet Volume 11.6 fL (7.4-10.4); Monocytes # (auto) 0.46 K/uL (0.11-0.59); Monocytes % (auto) 6.3 %; Neutrophils # (auto) 5.57 K/uL (1.4-6.5); Neutrophils % (auto) 75.8 %; Platelet Count 265 K/uL (130-400); RDW Coefficient of Variation 13.8 % (11.5-14.5); RDW Standard Deviation 43.8 fL (36.4-46.3); Red Blood Count 3.48 M/uL (4.2-5.4); White Blood Count 7.34 K/uL (4.8-10.8)
[2020-05-28 17:10] LABS: Albumin Level 3.9 gm/dl (3.4-5.0); BUN Creatinine Ratio 22.5 (10-20); Calcium 9.4 mg/dl (8.5-10.1); Creatinine Clr Calc Pharmacy 16.7 ml/min; Est GFR (Non-African American) 19.9; Potassium 3.5 mmol/L (3.5-5.1)
[2020-05-28 17:12] LABS: Albumin Globulin Ratio 1.1 (0.9-2); Bilirubin,Total 0.4 mg/dl (0.2-1); Globulin 3.6 gm/dl (2.5-4.0); Total Protein 7.5 gm/dl (6.4-8.2)
--- NOTE | 2020-05-28 19:16 | History & Physical Report ---
Date of Service May 28, 2020 Assessment & Plan (1) Constipation: (2) Abdominal pain: (3) Constipation: (4) Anemia: (5) Weakness: (6) Dehydration: (7) HLD (hyperlipidemia): (8) CKD (chronic kidney disease) stage 4, GFR 15-29 ml/min: (9) Pacemaker: (10) GERD (gastroesophageal reflux disease): (11) IBS (irritable bowel syndrome): (12) Bipolar 1 disorder: (13) Diabetes type 2, controlled: (14) Hypertension: (15) Hypothyroidism: We will get a GI evaluation, n.p.o. except sips and chips, monitor daily labs, continue outpatient medications where appropriate, sliding scale insulin, ordered lactulose, MiraLAX, Dulcolax, should be under observation. History of Present Illness 89-year-old female with a past medical history of urinary tract infection hemorrhoids, GI bleeding, anemia, weakness, dehydration, hypoxia, duodenal ulcer, hyperlipidemia, CKD stage IV, pacemaker, skull fracture, hypertension, hypothyroidism, subarachnoid subdural hemorrhage, type 2 diabetes, IBS, GERD, bipolar disorder, and hyperlipidemia who presents with abdominal pain starting today. It is associated with constipation for the past 5 days. She did use a laxative and had a bowel movement yesterday which her caregiver told her was black in color. She also had an episode of vomiting today which her caregiver stated was black. Currently denies passing gas or any bowel movements today. Primary Care Provider: Usama Meadows MD Allergies Allergy/AdvReac Type Severity Reaction Status Date / Time Iodinated Contrast Media Allergy Severe Anaphylaxis Verified 05/28/20 16:36 mold Allergy Unknown UNKNOWN Verified 05/28/20 16:36 pollen extracts Allergy Unknown UNKNOWN Verified 05/28/20 16:36 mushroom Allergy Verified 05/28/20 16:37 Dust Allergy Unknown UNKNOWN Uncoded 05/28/20 16:37 Fungi Allergy Unknown UNKNOWN Uncoded 05/28/20 16:37 Home Medications Medication Instructions Recorded Confirmed Type atorvastatin 20 mg tablet 20 mg PO DAILY 03/03/19 05/28/20 History multivitamin 1 tab PO DAILY 03/03/19 05/28/20 History levothyroxine 112 mcg PO QAM 05/07/19 05/28/20 History furosemide 40 mg tablet 40 mg PO QAM 02/15/20 05/28/20 History insulin glargine 100 unit/mL (3 12 unit SUBCUT HS ml 02/15/20 05/28/20 History mL) subcutaneous pen quetiapine 400 mg tablet 400 mg PO HS 02/15/20 05/28/20 History amlodipine 10 mg PO DAILY 04/15/20 05/28/20 History insulin aspart U-100 [Novolog 40 unit SUBCUT DIRECTED 05/15/20 05/28/20 History Flexpen U-100 Insulin] psyllium husk (aspartame) 2.5 g PO DAILY #660 g 05/15/20 05/28/20 Rx [Metamucil [facility] Fiber] sennosides [senna] 17.2 mg PO DAILY #60 cap 05/15/20 05/28/20 Rx lactulose 30 ml PO DAILY 05/28/20 05/28/20 History pantoprazole 40 mg PO QAM 05/28/20 05/28/20 History Past Med/Surg History Medical History Anemia of chronic disease Anxiety Bipolar 1 disorder CKD (chronic kidney disease) stage 4, GFR 15-29 ml/min Diabetes type 2, controlled Disc degeneration, lumbar Fracture of parietal bone of skull GERD (gastroesophageal reflux disease) Jonathan's thyroiditis Hemorrhage, subdural, traumatic HLD (hyperlipidemia) Hyperparathyroidism Hypertension Hypothyroidism IBS (irritable bowel syndrome) Irritable bowel syndrome with constipation Osteopenia Pacemaker Subarachnoid, subdural, and extradural hemorrhage, following injury Surgical History H/O lumpectomy History of total abdominal hysterectomy and bilateral salpingo-oophorectomy Hx of cholecystectomy Family History Sister Colorectal cancer Other Cancer Diabetes History of hysterectomy Hypertension Stroke Social History Smoking Status: Never smoker Hx Alcohol Use: No Hx Substance Use: No Preferred Language: Belarusian Communication Ability: Effective Visual Impairment: No Limitations Hearing Ability: Normal Professor Of Economics Required: No Beliefs That Will Affect Care: None marital status: Current Living Situation: Spouse Current Living Situation Comment: home health comes in to help with pt's Feels Safe at Home: Yes Assistive Devices: Walker Physical Exam Physical Exam: ROS-No Headache, No Visual Changes, No Nausea, No Vomiting, No Fever, No Chills, No Neck Pain or Stiffness, No Chest Pain, No Palpitations, No SOB, No SIMMONS, No Cough, No Sputum, No Wheezing, positive abdominal Pain, No Diarrhea, No Hematemesis, No Hemoptysis, No Unexpected Weight Loss, No Flank pain, positive melena, positive hematemesis black in color, no Hematochezia, No Frequency, No Urgency, No Burning, No Hematuria, No Rashes, No Diaphoresis. Appetite is Normal, complains of abdominal distention. Physical Exam Gen-AAO x 3, NAD, Afebrile, pleasant Head-NCAT, EOMI, PERRLA, Anicteric Sclera, No Posterior Pharyngeal Erythema Neck-Supple, No JVD, No Thyromegaly, No Masses, No LAD, No Bruits Lungs-Clear to Auscultation Bilaterally, No Rales, No Rhonchi, No Wheezing, No Crepitus Chest-No S4, +S1, +S2, No S3, No Murmurs, No Rubs, No Gallops, No Ectopy Abdomen-Soft, Bowel Sounds Present, Non Tender, mildly distended, No Hepatomegaly, No Splenomegaly, No Palpable Masses, No Rebound, No Rigidity, No Guarding Musculoskeletal-Full Range of Motion Bilaterally, No CVAT Extremities-No Cyanosis, No Clubbing, No Edema Nuero-Cranial Nerves II-XII grossly intact, Motor WNL, DTRs WNL, Strength WNL, Non Focal Psych-Normal Mood Results & Data Results & Data ([facility]) Vital Signs (Past 12 Hours) Vital Signs Temp Pulse Pulse Resp BP BP Pulse Ox 05/28/20 17:01 81 18 135/71 98 05/28/20 15:01 37 C 84 18 129/87 97 Allergies Iodinated Contrast Media Allergy (Severe, Verified 05/28/20 16:36) Anaphylaxis mold Allergy (Unknown, Verified 05/28/20 16:36) UNKNOWN pollen extracts Allergy (Unknown, Verified 05/28/20 16:36) UNKNOWN mushroom Allergy (Verified 05/28/20 16:37) Dust Allergy (Unknown, Uncoded 05/28/20 16:37) UNKNOWN Fungi Allergy (Unknown, Uncoded 05/28/20 16:37) UNKNOWN Height/Weight/Isolation Height 5 ft 1 in Weight 64 kg Chemistry 05/28/20 16:43 Sodium 125 L Potassium 3.5 Chloride 90 L Carbon Dioxide 24 Anion Gap 12.0 H BUN 50 H Creatinine 2.23 H Glucose 151 H Code Status & VTE Plan VTE Prophylaxis Plan VTE Prophylaxis will be ordered: Yes (1) Anemia Anemia type: other cause Other causes of anemia: acute posthemorrhagic Qualified Code(s): D62 - Acute posthemorrhagic anemia (2) Diabetes type 2, controlled Diabetes mellitus complication status: with unspecified complications Diabetes mellitus care home insulin use: with caisson worker use Qualified Code(s): E11.8 - Type 2 diabetes mellitus with unspecified complications; Z79.4 - skilled nursing (current) use of insulin (3) Abdominal pain Abdominal location: lower abdomen, unspecified Qualified Code(s): R10.30 - Lower abdominal pain, unspecified (4) Hypertension Hypertension type: essential hypertension Qualified Code(s): I10 - Essential (primary) hypertension (5) Constipation Constipation type: unspecified constipation type Qualified Code(s): K59.00 - Constipation, unspecified
[2020-05-28] MEDS ORDERED: CARBOHYDRATES FOR HYPOGLYCEMIA PO PRN (19:44)
[2020-05-28] MEDS ORDERED: GLUCOSE 40% GEL 15 GM TUBE PO PRN (19:44)
[2020-05-28] MEDS ORDERED: GLUCOSE 10 TABS/TUBE PO PRN (19:44)
[2020-05-28] MEDS ORDERED: DEXTROSE 50% 50 ML SYRINGE IV PRN (19:44)
[2020-05-28] MEDS ORDERED: POLYETHYLENE (MIRALAX) 17 GM PACK PO PRN (19:44)
[2020-05-28] MEDS ORDERED: PHARMACY GLYCEMIC MGMT CONSULT PRN (19:44)
[2020-05-28] MEDS ORDERED: GLUCAGON FOR INJ 1 MG VIAL SQ PRN (19:44)
--- NOTE | 2020-05-28 20:06 | Pharmacy Report ---
Glycemic Control Consultation - Date of Service May 28, 2020 - Scope Scope: Glycemic Pharmacist consulted for glycemic control and to write orders per [facility] inpatient glycemic control protocol. - Objective Weight: 64 kg Accuchecks BSG (last 24hrs): 05/28/20 16:43 Glucose 151 H Laboratory Data (last 24hrs): 05/28/20 16:43 Potassium 3.5 Carbon Dioxide 24 Anion Gap 12.0 H Creatinine 2.23 H Est Cr Clr Drug Dosing 16.7 - Recent Pertinent Medications Outpatient Anti-diabetic Regimen: * Lantus 12 units SC HS + Novolog SSI (MDD 40 u/day) * A1c = 5.5% (04/16/2020) Risk Factors for Insulin Resistance: * Diet: * NPO - Assessment & Plan Assessment & Plan: ASSESSMENT: * 89 yo F admitted secondary to abdominal pain. Pharmacy is consulted for inpatient diabetes management. PMHx significant for UTI, GI bleed, anemia, du odenal ulcer, HLD, CKD Stage IV, pacemaker, skull fracture, HTN, hypothyroidism, subarachnoid subdural hemorrhage, T2DM, IBS, GERD, bipolar disorder. * Admission BSG was 151 mg/dL. Patient is NPO for possible GI bleed. * Will start Lantus at 50% of usual home dose and novolog based on wgt/stress of 2. PLAN FOR INPATIENT GLYCEMIC CONTROL: * Basal insulin * Lantus 6 units SQ HS * Bolus insulin * NovoLog per scale ACHS or Q6hrs while NPO * Goal Range: Low 110 mg/dL - High 140 mg/dL * Correction Factor: 35 mg/dL/unit * Nutritional / Prandial insulin per carb ratio of 1 unit per 12 grams CHO consumed * Please note that the plan above was derived based on current level of insulin resistance and hospital stress. These recommendations are appropriate for inpatient admission only. Plan of care upon discharge will need to be reassessed to avoid potential outpatient hypo/hyperglycemia. Thank you.
[2020-05-28] MEDS: LACTULOSE SYRUP 20 GM/30 ML UDC PO SCH (22:50)
[2020-05-28] MEDS: INSULIN GLARGINE SOLOSTAR 100 UNITS/ML 3 ML PEN SQ SCH (22:50)
[2020-05-28] MEDS: PANTOprazole 40 MG TAB PO SCH (22:51)
[2020-05-28] MEDS: QUEtiapine FUMARATE 200 MG TABCR PO SCH (22:51)
[2020-05-28] MEDS: SENNA 8.6 MG TAB PO SCH (22:51)
[2020-05-28] MEDS ORDERED: Nursing to Pharmacy Communication SCH (23:15)
[2020-05-29] MEDS: LEVOTHYROXINE SODIUM 112 MCG TABLET PO SCH (04:54)
[2020-05-29] MEDS: bisacodyL 10 MG SUPP PR PRN (04:54)
[2020-05-29 07:06] LABS: Hematocrit (blood only) 28.4 % (37-47); Hemoglobin 9.7 g/dL (12.0-16.0); Mean Corpuscular Hemoglobin 30.3 pg (25-34); Mean Corpuscular Hgb Conc 34.2 g/dL (32-36); Mean Corpuscular Volume 88.8 fL (80-100); Platelet Count 279 K/uL (130-400); RDW Coefficient of Variation 13.8 % (11.5-14.5); RDW Standard Deviation 44.8 fL (36.4-46.3); White Blood Count 4.89 K/uL (4.8-10.8)
[2020-05-29] MEDS: SENNA 8.6 MG TAB PO SCH (07:35)
[2020-05-29] MEDS: LACTULOSE SYRUP 20 GM/30 ML UDC PO SCH ×4 (07:35→21:44)
[2020-05-29] MEDS: PSYLLIUM 58.6% POWDER PACKET PO SCH (07:36)
[2020-05-29] MEDS: FUROSEMIDE 40 MG TAB PO SCH (07:36)
[2020-05-29] MEDS: PANTOprazole 40 MG TAB PO SCH (07:36)
[2020-05-29] MEDS: ATORVASTATIN 20 MG TAB PO SCH (07:36)
[2020-05-29] MEDS: amLODIPine BESYLATE 5 MG TAB PO SCH (07:36)
[2020-05-29 07:45] LABS: BUN Creatinine Ratio 22.9 (10-20); Calcium 8.9 mg/dl (8.5-10.1); Creatinine Clr Calc Pharmacy 16.2 ml/min; Est GFR (African American) 22.2; Est GFR (Non-African American) 19.2
[2020-05-29] MEDS: D5NSS + 20MEQ KCL 20 MEQ/1,000 ML BAG IV SCH ×2 (09:05→18:03)
--- NOTE | 2020-05-29 09:24 | XRay Report ---
XR chest 1V portable HISTORY: Generalized abdominal pain COMPARISON: Chest 04/15/2020. FINDINGS: Right-sided dual-chamber pacemaker is again noted. No pneumothorax. No pleural effusions. T he lungs are clear. No evidence for pulmonary edema. The heart is normal in size. IMPRESSION: No significant change compared to the prior study. No acute process. ACT 112: Negative or not required by law. Electronically signed by: Luciano Gonzalez M.D. 05/29/2020 9:23 AM
--- NOTE | 2020-05-29 11:24 | Gastrointestinal Consultation ---
Date of Consultation May 29, 2020 Assessment & Plan (1) Constipation: (2) Colon distention: (3) Anemia: (4) Melena: Hemodynamically stable at present Continue Protonix 40 mg daily No plans for invasive testing at this time Increase Miralax to 17 g in 8 oz glass of water every 6 hours Continue Lactulose 20 g by mouth PO QID Continue Dulcolax [address] Q12 hours Fleets enema x 1 now Will follow clinical course and make further recommendations as needed. History of Present Illness Reason for Consultation: Melena and constipation Attending Physician: Michael Willingham MD History of Present Illness Noe Lanier is an 80 yo female who presented to the ER yesterday with a reported black BM x1 and a single episode of black emesis. She did complain of crampy lower quadrant abdominal pain in the ER. She was hemodynamically stable and her H/H was decreased, but around her baseline. A CT scan of the abd/pelvis was performed and showed a significant stool burden. She was subsequently admitted and placed on a stool regimen. She has had multiple small BM's per nursing staff, and has received Lactulose, Miralax and a dulcolax suppository. Of note, she did have a CT abd/pelvis on 05/15/20 as well do to abdominal pain and constipation, and it showed a significant stool burden as well, and evidence of stercoral proctitis. At the time I saw the patient she continues to complain of bilateral lower quadrant abdominal pain. She rates her pain as 4/10 in intensity, non-radiating, and states that she, "need an enema." She denies upper GI pain. She underwent an EGD on 04/[address] Alvarado, and was found to have LA Grade A reflux and a small non-bleeding Duodenal ulcer. She has been taking Pantoprazole since that time. She denies any lightheadedness, dizziness, nausea, vomiting, hematemesis, melena or hematochezia. She has no further complaints. Nursing reports no bloody or black BM's since arrival. Allergies Allergy/AdvReac Type Severity Reaction Status Date / Time Iodinated Contrast Media Allergy Severe Anaphylaxis Verified 05/28/20 16:36 mold Allergy Unknown UNKNOWN Verified 05/28/20 16:36 pollen extracts Allergy Unknown UNKNOWN Verified 05/28/20 16:36 mushroom Allergy Verified 05/28/20 16:37 Dust Allergy Unknown UNKNOWN Uncoded 05/28/20 16:37 Fungi Allergy Unknown UNKNOWN Uncoded 05/28/20 16:37 Home Medications Medication Instructions Recorded Confirmed Type atorvastatin 20 mg tablet 20 mg PO DAILY 03/03/19 05/28/20 History multivitamin 1 tab PO DAILY 03/03/19 05/28/20 History levothyroxine 112 mcg PO QAM 05/07/19 05/28/20 History furosemide 40 mg tablet 40 mg PO QAM 02/15/20 05/28/20 History insulin glargine 100 unit/mL (3 12 unit SUBCUT HS ml 02/15/20 05/28/20 History mL) subcutaneous pen quetiapine 400 mg tablet 400 mg PO HS 02/15/20 05/28/20 History amlodipine 10 mg PO DAILY 04/15/20 05/28/20 History insulin aspart U-100 [Novolog 40 unit SUBCUT DIRECTED 05/15/20 05/28/20 History Flexpen U-100 Insulin] psyllium husk (aspartame) 2.5 g PO DAILY #660 g 05/15/20 05/28/20 Rx [Metamucil [facility] Fiber] sennosides [senna] 17.2 mg PO DAILY #60 cap 05/15/20 05/28/20 Rx lactulose 30 ml PO DAILY 05/28/20 05/28/20 History pantoprazole 40 mg PO QAM 05/28/20 05/28/20 History Patient History Medical History Anemia of chronic disease Anxiety Bipolar 1 disorder CKD (chronic kidney disease) stage 4, GFR 15-29 ml/min Diabetes type 2, controlled Disc degeneration, lumbar Fracture of parietal bone of skull GERD (gastroesophageal reflux disease) Jonathan's thyroiditis Hemorrhage, subdural, traumatic HLD (hyperlipidemia) Hyperparathyroidism Hypertension Hypothyroidism IBS (irritable bowel syndrome) Irritable bowel syndrome with constipation Osteopenia Pacemaker Subarachnoid, subdural, and extradural hemorrhage, following injury Surgical History H/O lumpectomy History of total abdominal hysterectomy and bilateral salpingo-oophorectomy Hx of cholecystectomy Family History Sister Colorectal cancer Other Cancer Diabetes History of hysterectomy Hypertension Stroke Social History Smoking Status: Never smoker Hx Alcohol Use: No Hx Substance Use: No Preferred Language: Persian Communication Ability: Effective Visual Impairment: No Limitations Hearing Ability: Normal Assigner Required: No Beliefs That Will Affect Care: None marital status: Current Living Situation: Spouse Current Living Situation Comment: home health Feels Safe at Home: Yes Safety Concerns: Feels Safe At This Time Assistive Devices: Walker Review of Systems Review of Systems: All systems reviewed & are unremarkable except as noted in HPI & below Physical Exam Constitutional: + ill appearing; no acute distress Chronic ill-appearing Eyes: + anicteric sclerae ENMT: external ear and nose normal, oropharynx normal Neck: trachea midline, no thyromegaly Respiratory: normal respiratory effort; no respiratory distress and no labored breathing Cardiovascular: Rate/Rhythm: regular rate and regular rhythm Gastrointestinal (Abdomen): Inspection/Auscultation: abdomen normal to inspection and + abdomen distended (slightly) Percussion/Palpation: + abdomen tender and abdomen soft; no guarding, abdomen not rigid and no hepatosplenomegaly Skin: no rashes, warm and dry Psychiatric: Orientation: oriented x 3 Affect: + depressed affect Results & Data ([facility]) Vital Signs (Past 12 Hours) Vital Signs Temp Pulse Pulse Resp BP Pulse Ox 05/29/20 11:18 36.7 C 100 H 16 107/70 95 05/29/20 08:07 36.4 C L 81 16 121/70 95 05/29/20 07:17 83 05/29/20 03:37 36.7 C 85 18 147/68 H 95 PG Care Time/CCT Total # of Minutes Spent Total Time Spent with Patient: Total time spent is greater than 50% in coordination of care (as documented) at patient's floor/unit and/or counseling patient: Coding Level of Care Code 02221 Initial Inpt Care Lvl 3 Diagnoses Constipation K59.00 Constipation type: unspecified constipation type Colon distention K63.89 Anemia D64.9 Anemia type: unspecified type Melena K92.1 (1) Anemia Anemia type: unspecified type Qualified Code(s): D64.9 - Anemia, unspecified (2) Constipation Constipation type: unspecified constipation type Qualified Code(s): K59.00 - Constipation, unspecified
[2020-05-29] MEDS ORDERED: SOD PHOSPHATE/SOD BIPHOSPHATE ENEMA 132 ML BTL PR STA (12:10)
[2020-05-29] MEDS: INSULIN ASPART 100 UNITS/ML 3 ML PEN SC SCH ×3 (14:20→23:44)
[2020-05-29] MEDS: POLYETHYLENE (MIRALAX) 17 GM PACK PO SCH ×2 (17:06→23:22)
[2020-05-29] MEDS ORDERED: PROMETHAZINE HCL 12.5 MG in SODIUM CHLORIDE 0.9% 50 ML IV ONE (19:30)
[2020-05-29] MEDS ORDERED: INSULIN ASPART 100 UNITS/ML 3 ML PEN SC SCH (20:00)
[2020-05-29] MEDS: QUEtiapine FUMARATE 200 MG TABCR PO SCH (21:45)
[2020-05-29] MEDS: INSULIN GLARGINE SOLOSTAR 100 UNITS/ML 3 ML PEN SQ SCH (21:46)
[2020-05-29] MEDS ORDERED: ONDANSETRON INJ 2 MG/ML 2 ML VIAL IV STA (22:54)
--- NOTE | 2020-05-29 23:36 | Hospitalist Progress Note ---
Date of Service May 29, 2020 Assessment & Plan (1) Obstipation: Presented with severe constipation. GI consulted. Continue bowel regimen. (2) GERD (gastroesophageal reflux disease): Continue PPI. (3) Hypertension: Continue amlodipine. (4) CKD (chronic kidney disease) stage 4, GFR 15-29 ml/min: Serum creatinine today = 2.3. (5) Hypokalemia: K = 3.0. Replace with caution in light of CKD. (6) Diabetes type 2, controlled: Hgb A1c pending. FBS today = 129. (7) Hypothyroidism: Continue levothyroxine. (8) Bipolar 1 disorder: Continue usual meds. (9) DVT prophylaxis: No anticoagulants- hx of ICH and GI bleed. SCD's. Ambulate. (10) Discharge planning issues: Anticipated discharge to home. Family Medicine follow-up with Dr. Meadows. Admission and Anticipated Discharge Date Admission Date: May 28, 2020 Subjective Recheck for severe obstipation and other problems. Patient seen in their room around 1340. Passed small amount of stool, but still very bloated and uncomfortable. Nausea, but no vomiting. Review of Systems: Constitutional- no fever. Cardiac- no chest pain. Pulmonary- no cough or SOB. GI- as noted above. - no urinary symptoms. Otherwise, as noted above. Physical Exam 2 Constitutional: no acute distress Eyes: + anicteric sclerae Respiratory: normal respiratory effort, lungs clear to auscultation Cardiovascular: Rate/Rhythm: regular rate and regular rhythm Vessels: no JVD Extremities: no calf tenderness and no edema Gastrointestinal (Abdomen): Inspection/Auscultation: + abdomen distended; + abnormal bowel sounds (quiet) Percussion/Palpation: abdomen soft; abdomen nontender Musculoskeletal: Extremities: no cyanosis Skin: no rashes, warm and dry Psychiatric: Orientation: alert and oriented x 3 Results & Data Results & Data ([facility]) Vital Signs (Past 12 Hours) Vital Signs Temp Pulse Pulse Resp BP Pulse Ox 05/29/20 23:28 98 H 05/29/20 19:14 36.7 C 95 H 18 157/84 H 95 05/29/20 15:59 89 Laboratory Results 05/29/20 06:24 05/29/20 06:24 (1) Hypertension Hypertension type: essential hypertension Qualified Code(s): I10 - Essential (primary) hypertension (2) Diabetes type 2, controlled Diabetes mellitus middle or intermediate [employer] principal insulin use: with mcfp use Diabetes mellitus complication status: with unspecified complications Qualified Code(s): E11.8 - Type 2 diabetes mellitus with unspecified complications; Z79.4 - termite helper (current) use of insulin
[2020-05-30] MEDS ORDERED: POTASSIUM CHLORIDE CRTAB 20 MEQ TABCR PO ONE (00:06)
[2020-05-30] MEDS ORDERED: METOCLOPRAMIDE HCL INJ 5 MG/ML 2 ML VIAL IV ONE (00:08)
[2020-05-30] MEDS: POTASSIUM CHLORIDE / WTR 10 MEQ/100 ML PLCT IV SCH ×2 (01:41→02:41)
[2020-05-30] MEDS: INSULIN ASPART 100 UNITS/ML 3 ML PEN SC SCH ×6 (05:03→20:53)
[2020-05-30] MEDS: POLYETHYLENE (MIRALAX) 17 GM PACK PO SCH ×3 (05:54→17:29)
[2020-05-30] MEDS: LEVOTHYROXINE SODIUM 112 MCG TABLET PO SCH (06:01)
[2020-05-30] MEDS: D5NSS + 20MEQ KCL 20 MEQ/1,000 ML BAG IV SCH ×2 (06:04→14:30)
[2020-05-30 06:22] LABS: Estimated Average Glucose 120 mg/dl; Hemoglobin A1C 5.8 % (4.5-5.6)
[2020-05-30 08:34] LABS: BUN Creatinine Ratio 19.6 (10-20); Calcium 8.4 mg/dl (8.5-10.1); Est GFR (African American) 21.9; Est GFR (Non-African American) 18.9; Potassium 3.5 mmol/L (3.5-5.1)
[2020-05-30 08:40] LABS: Thyroid Stimulating Hormone 0.156 uIu/ml (0.300-4.500)
[2020-05-30] MEDS: PSYLLIUM 58.6% POWDER PACKET PO SCH ×2 (09:36→09:42)
[2020-05-30] MEDS: FUROSEMIDE 40 MG TAB PO SCH (09:37)
[2020-05-30] MEDS: amLODIPine BESYLATE 5 MG TAB PO SCH (09:37)
[2020-05-30] MEDS: SENNA 8.6 MG TAB PO SCH (09:38)
[2020-05-30] MEDS: ATORVASTATIN 20 MG TAB PO SCH (09:38)
[2020-05-30] MEDS: PANTOprazole 40 MG TAB PO SCH (09:38)
[2020-05-30] MEDS: LACTULOSE SYRUP 20 GM/30 ML UDC PO SCH ×4 (09:39→20:53)
--- NOTE | 2020-05-30 10:55 | Gastroenterology Progress Note ---
Date of Service May 30, 2020 Assessment & Plan (1) Constipation: -Continue Miralax 17 gm q 6 hrs -Continue Lactulose 20 gm TID -Dulcolax [place] q 12 hours -Okay to repeat fleet enema if needed -Encourage po hydration Admission and Anticipated Discharge Date Admission Date: May 28, 2020 Supervising Physician Co-Signing Physician Notes Agree with Uma Carbajal PAC Abd: Distended, +BS Patient just had large BM per nursing staff Continue bowel regimen Continue supportive care Check Abd series Subjective Patient is an 80 yo female with constipation. Per charting and nursing, patient had a signficant bowel movement after the enema administration. She reportedly was noted to have a rectal prolapse. Patient reports she feels like she still needs to move her bowels. She denies bleeding or vomiting. She denies abdominal pain. No further new complaints at present. Review of Systems Constitutional: no fever and no chills Respiratory: no cough and no dyspnea Cardiovascular: no chest pain Gastrointestinal: + bloating and + constipation (improving) Integumentary: no problem reported Physical Exam Constitutional: well developed Respiratory: normal respiratory effort Cardiovascular: Extremities: no edema Gastrointestinal (Abdomen): Inspection/Auscultation: abdomen normal to ins pection Percussion/Palpation: abdomen soft; abdomen nontender Psychiatric: Orientation: alert Results & Data Results & Data ([facility]) Vital Signs (Past 12 Hours) Vital Signs Temp Pulse Pulse Resp BP Pulse Ox 05/30/20 07:34 36.9 C 78 20 140/86 93 05/29/20 23:57 37.0 C 90 16 155/79 H 93 05/29/20 23:28 98 H PG Care Time/CCT Total # of Minutes Spent Total Time Spent with Patient: Total time spent is greater than 50% in coordination of care (as documented) at patient's floor/unit and/or counseling patient: Coding Level of Care Code 60098 Subseq Hosp Care Lvl 2 Diagnoses Constipation K59.00 Constipation type: unspecified constipation type (1) Constipation Constipation type: unspecified constipation type Qualified Code(s): K59.00 - Constipation, unspecified
--- NOTE | 2020-05-30 13:37 | Pharmacy Report ---
Pharmacy Glycemic Short Note 2 - Date of Service May 30, 2020 - Glycemic Short BSG Results (Last 24 hours): 05/29/20 05/29/20 05/29/20 16:49 20:37 23:39 Glucose POC Glucose 197 H 101 H 186 H 05/30/20 05/30/20 05/30/20 05:01 07:31 07:50 Glucose 167 H POC Glucose 173 H 193 H 05/30/20 11:27 Glucose POC Glucose 199 H OUTPATIENT ANTIDIABETIC REGIMEN: * Lantus 12 units Q HS * Novolog per sliding scale * A1c = 5.8% 05/29/20 ASSESSMENT: * Type 2 diabetic admitted w/ abdominal pain, severe constipation * BSGs had been elevated initially, likely due to high rates of IV dextrose administration (D5NS + 20mEq KCl infusing at 100cc/hr) * BSGs better controlled w/ the addition of Novolog Q 4 hrs and half-dose Lantus (50% of home regimen) * Diet has been advanced today but no carb intake documented yet. Dextrose containing IVFs continue * Will utilize a set dose of Novolog Q 4 hrs to achieve improved glycemic control w/o addition of larger basal dose in light of poor PO intake. This will help avoid hypoglycemia if dextrose containing IVFs are cut abruptly and pt's diet remains poor. PLAN FOR INPATIENT GLYCEMIC CONTROL: * Basal insulin * Lantus 6 units SQ Q HS * Bolus insulin: * Novolog per the following Q 4 hrs: PLAN FOR DISCHARGE: * to be determined
[2020-05-30] MEDS ORDERED: SOD PHOSPHATE/SOD BIPHOSPHATE ENEMA 132 ML BTL PR ONE (14:14)
[2020-05-30] MEDS ORDERED: SOD PHOSPHATE/SOD BIPHOSPHATE ENEMA 132 ML BTL PR PRN (14:14)
[2020-05-30] MEDS ORDERED: INSULIN GLARGINE SOLOSTAR 100 UNITS/ML 3 ML PEN SQ ONE (16:30)
[2020-05-30] MEDS: bisacodyL 10 MG SUPP PR PRN (19:12)
--- NOTE | 2020-05-30 19:53 | XRay Report ---
XR abdomen 2V w PA chest CLINICAL HISTORY: abdominal distention COMPARISON STUDY: 05/29/2020 FINDINGS: Erect chest reveals no free air. There is a right subclavian dual-chamber central venous pa cemaker. There are a few scattered postinflammatory granulomas. A nodular opacity at the right lung b ase likely represents summation with costochondral junction. Erect and supine views the abdomen revea l gaseous distention of the colon down to the level of the rectum. IMPRESSION: 1. Gaseous distention of the colon down to the level the rectum 2. No evidence of free intraperitoneal air. ACT 112: Negative or not required by law. Electronically signed by: Flaco Briggs M.D. 05/30/2020 7:52 PM
[2020-05-30] MEDS ORDERED: ONDANSETRON INJ 2 MG/ML 2 ML VIAL IV STA (20:46)
[2020-05-30] MEDS: QUEtiapine FUMARATE 200 MG TABCR PO SCH (20:52)
[2020-05-30] MEDS: INSULIN GLARGINE SOLOSTAR 100 UNITS/ML 3 ML PEN SQ SCH (20:54)
--- NOTE | 2020-05-30 22:12 | Hospitalist Progress Note ---
Date of Service May 30, 2020 Assessment & Plan (1) Obstipation: Presented with severe constipation. GI consulted. Continue bowel regimen. Check f/u KUB tomorrow. (2) GERD (gastroesophageal reflux disease): Continue PPI. (3) Hypertension: Continue amlodipine. (4) CKD (chronic kidney disease) stage 4, GFR 15-29 ml/min: Serum creatinine today = 2.33. Follow. (5) Hypokalemia: K = as low as 3.0. Replaced. K today = 3.5. Follow. (6) Diabetes type 2, controlled: Hgb A1c 5.8. Pharmacy consulted for glycemic management. FBS today = 193. (7) Hypothyroidism: TSH 0.156. Continue levothyroxine. Recheck TSH in clinic once acute illness has resolved. (8) Bipolar 1 disorder: Continue usual meds. (9) DVT prophylaxis: No anticoagulants- hx of ICH and GI bleed. SCD's. Ambulate. (10) Discharge planning issues: Anticipated discharge to home with services (has 24-hour care). Family Medicine follow-up with Dr. Meadows. Admission and Anticipated Discharge Date Admission Date: May 30, 2020 Subjective Recheck for severe obstipation and other problems. Patient seen in their room around 1410. Passing some stool, but still very bloated. Nauseated with small emesis. Review of Systems: Constitutional- no fever. Cardiac- no chest pain. Pulmonary- rare cough, no SOB. GI- as noted above. - no urinary symptoms. Otherwise, as noted above. Physical Exam Constitutional: no acute distress Eyes: + anicteric sclerae Respiratory: normal respiratory effort, lungs clear to auscultation Cardiovascular: Rate/Rhythm: regular rate and regular rhythm Vessels: no J VD Extremities: no calf tenderness and no edema Gastrointestinal (Abdomen): Inspection/Auscultation: + abdomen distended; + abnormal bowel sounds (high-pitched) Percussion/Palpation: + abdomen tender (diffuse, mild-moderate) and abdomen soft Musculoskeletal: Extremities: no cyanosis Skin: no rashes, warm and dry Psychiatric: Orientation: alert and oriented x 3 Results & Data Results & Data ([facility]) Vital Signs (Past 12 Hours) Vital Signs Temp Pulse Pulse Resp BP Pulse Ox 05/30/20 19:12 37 C 105 H 19 165/91 H 99 05/30/20 16:42 103 H 05/30/20 15:39 37.2 C 105 H 20 173/77 H 95 05/30/20 11:09 37.0 C 78 16 143/74 H 93 Laboratory Results 05/29/20 06:24 05/30/20 07:50 (1) Hypertension Hypertension type: essential hypertension Qualified Code(s): I10 - Essential (primary) hypertension (2) Diabetes type 2, controlled Diabetes mellitus intermediate insulin use: with intermediate use Diabetes mellitus complication status: with unspecified complications Qualified Code(s): E11.8 - Type 2 diabetes mellitus with unspecified complications; Z79.4 - shelter (current) use of insulin
[2020-05-31] MEDS: POLYETHYLENE (MIRALAX) 17 GM PACK PO SCH ×5 (00:16→23:36)
[2020-05-31] MEDS: INSULIN ASPART 100 UNITS/ML 3 ML PEN SC SCH ×7 (00:18→23:36)
[2020-05-31] MEDS: D5NSS + 20MEQ KCL 20 MEQ/1,000 ML BAG IV SCH ×3 (00:45→21:48)
[2020-05-31] MEDS: LEVOTHYROXINE SODIUM 112 MCG TABLET PO SCH (06:42)
[2020-05-31] MEDS: PSYLLIUM 58.6% POWDER PACKET PO SCH (07:25)
[2020-05-31] MEDS: LACTULOSE SYRUP 20 GM/30 ML UDC PO SCH ×5 (07:26→21:48)
[2020-05-31] MEDS: PANTOprazole 40 MG TAB PO SCH (07:27)
[2020-05-31] MEDS: ATORVASTATIN 20 MG TAB PO SCH (07:28)
[2020-05-31] MEDS: SENNA 8.6 MG TAB PO SCH (07:28)
[2020-05-31] MEDS: FUROSEMIDE 40 MG TAB PO SCH (07:28)
[2020-05-31] MEDS: amLODIPine BESYLATE 5 MG TAB PO SCH (07:28)
--- NOTE | 2020-05-31 08:28 | XRay Report ---
KUB HISTORY: obstipation COMPARISON: Chest and abdominal series 05/30/2020. FINDINGS: Multiple dilated gas-filled loops of large or small bowel seen throughout the colon. There is no gas identified within the rectum. The degree of colonic distention has slightly improved. There is moderate stool seen scattered within the colon. Prior cholecystectomy. No renal calculi. No uret eral calculi. No pneumoperitoneum or pneumatosis. IMPRESSION: 1. Dilated gas-filled loops of large or small bowel seen throughout the colon. There is no gas identi fied within the rectum. 2. The degree of colonic distention is slightly improved. ACT 112: Negative or not required by law. Electronically signed by: Luciano Gonzalez M.D. 05/31/2020 8:27 AM
[2020-05-31 08:45] LABS: BUN Creatinine Ratio 16.7 (10-20); Calcium 8.4 mg/dl (8.5-10.1); Creatinine Clr Calc Pharmacy 19.3 ml/min; Est GFR (African American) 28.9; Est GFR (Non-African American) 24.9; Potassium 3.7 mmol/L (3.5-5.1)
--- NOTE | 2020-05-31 09:45 | Pharmacy Report ---
Pharmacy Glycemic Short Note 2 - Date of Service May 31, 2020 - Glycemic Short BSG Results (Last 24 hours): 05/30/20 05/30/20 05/30/20 11:27 16:27 20:37 Glucose POC Glucose 199 H 200 H 186 H 05/30/20 05/31/20 05/31/20 23:58 03:53 07:44 Glucose 143 H POC Glucose 185 H 140 H 05/31/20 07:45 Glucose POC Glucose 166 H OUTPATIENT ANTIDIABETIC REGIMEN: * Lantus 12 units Q HS * Novolog per sliding scale * A1c = 5.8% 05/29/20 ASSESSMENT: 05/31 * Young received 24 units of insulin yesterday (6 units basal - 18 units bolus). Majority of BSGs were above goal. * Fasting BSG improved today but remains above goal. Will increase Lantus dose to 8 units HS. * Patient remains on dextrose containing fluids at 100 ml/hr. Will continue Novolog q4 hours. Post prandial BSGs looking better today. 05/30: * Type 2 diabetic admitted w/ abdominal pain, severe constipation * BSGs had been elevated initially, likely due to high rates of IV dextrose administration (D5NS + 20mEq KCl infusing at 100cc/hr) * BSGs better controlled w/ the addition of Novolog Q 4 hrs and half-dose Lantus (50% of home regimen) * Diet has been advanced today but no carb intake documented yet. Dextrose c ontaining IVFs continue * Will utilize a set dose of Novolog Q 4 hrs to achieve improved glycemic con trol w/o addition of larger basal dose in light of poor PO intake. This will help avoid hypoglycemia if dextrose containing IVFs are cut abruptly and pt's diet remains poor. PLAN FOR INPATIENT GLYCEMIC CONTROL: * Basal insulin - increase * Lantus 8 units SQ Q HS * Bolus insulin: * Novolog per the following Q 4 hrs: PLAN FOR DISCHARGE: * to be determined
--- NOTE | 2020-05-31 10:56 | Gastroenterology Progress Note ---
Date of Service May 31, 2020 Assessment & Plan (1) Constipation: Patient is reporting significant improvement in her symptoms since yesterday afternoon. -Continue Miralax 17 gm q 6 hours -Continue Lactulose 20 gm TID -Continue Dulcolax BID -Can repeat enemas if needed, though patient notes significant improvement Thank you for allowing us to participate in the care of this patient. If you have any further questions or concerns, do not hesitate to contact us at extension [phone] or [phone]. Admission and Anticipated Discharge Date Admission Date: May 30, 2020 Supervising Physician Co-Signing Physician Notes Agree with NHAN Workman Abd: Soft, NT, ND Doing much better today Multiple BM's overnight and this AM Continue bowel regimen Subjective Patient is an 80 yo female with constipation. An abdominal xray on 05/30 indicated dilated gas-filled loops of large or small bowel seen throughout the colon. The degree of colonic distention is slightly improved from previous. The patient, however, reports significant symptomatic improvement. She reports several large bowel movements and states that she is now hungry. She notes less bloating and discomfort in her abdomen. Review of Systems Constitutional: no fever and no chills Respiratory: no cough and no dyspnea Cardiovascular: no chest pain Gastrointestinal: no abdominal pain improving constipation Musculoskeletal: no problem reported Integumentary: no rash Physical Exam Constitutional: WD/WN, vitals as above Respiratory: normal respiratory effort Cardiovascular: Extremities: no edema Gastrointestinal (Abdomen): Percussion/Palpation: abdomen nontender distention improving Musculoskeletal: Head/Neck/Chest: normocephalic Psychiatric: Orientation: alert and oriented x 3 Results & Data Results & Data ([facility]) Vital Signs (Past 12 Hours) Vital Signs Temp Pulse Pulse Resp BP Pulse Ox 05/31/20 08:49 36.6 C 88 20 133/67 100 05/31/20 03:08 36.6 C 92 H 16 163/80 H 97 05/31/20 01:35 96 H 05/30/20 23:15 37.2 C 95 H 20 165/82 H 97 PG Care Time/CCT Total # of Minutes Spent Total Time Spent with Patient: Total time spent is greater than 50% in coordination of care (as documented) at patient's floor/unit and/or counseling patient: Coding Level of Care Code 24393 Subseq Hosp Care Lvl 2 Diagnoses Constipation K59.00 Constipation type: unspecified constipation type (1) Constipation Constipation type: unspecified constipation type Qualified Code(s): K59.00 - Constipation, unspecified
[2020-05-31] MEDS ORDERED: INSULIN GLARGINE SOLOSTAR 100 UNITS/ML 3 ML PEN SQ SCH (21:00)
[2020-05-31] MEDS: QUEtiapine FUMARATE 200 MG TABCR PO SCH (21:49)
--- NOTE | 2020-05-31 22:16 | Hospitalist Progress Note ---
Date of Service May 31, 2020 Assessment & Plan (1) Obstipation: Presented with severe constipation. GI consulted. Has received lactulose, MiraLax, and Fleet enemas with improvement. KUB today: extensive dilated loops of bowel. Continue bowel regimen. Check f/u KUB tomorrow. (2) GERD (gastroesophageal reflux disease): Continue PPI. (3) Hypertension: Continue amlodipine. (4) CKD (chronic kidney disease) stage 4, GFR 15-29 ml/min: Creatinine day of admission was 2.23. Received IV fluids. Serum creatinine today = 1.85. Follow. (5) Hypokalemia: K = as low as 3.0. Replaced. K today = 3.7. Follow. (6) Hyponatremia: Sodium at time of admission 125. Hyponatremia probably due to electrolyte loss from N&V. Received IV fluids. Sodium today = 141. Follow. (7) Diabetes type 2, controlled: Hgb A1c 5.8. Pharmacy consulted for glycemic management. FBS today = 166. (8) Hypothyroidism: TSH 0.156. Continue levothyroxine. Recheck TSH in clinic once acute illness has resolved. (9) Bipolar 1 disorder: Continue usual meds. (10) DVT prophylaxis: No anticoagulants- hx of ICH and GI bleed. SCD's. Ambulate. (11) Discharge planning issues: Anticipated discharge to home with services (has 24-hour care). Family Medicine follow-up with Dr. Meadows. Admission and Anticipated Discharge Date Admission Date: May 30, 2020 Subjective Recheck for severe obstipation and other problems. Patient seen in their room around 1820. Has had some large bowel movements today. Nausea improved. No further vomiting. Still bloated. Review of Systems: Constitutional- no fever. Cardiac- no chest pain. Pulmonary- no cough, no SOB. GI- as noted above. - no urinary symptoms. Otherwise, as noted above. Physical Exam Constitutional: no acute distress Eyes: + anicteric sclerae Respiratory: normal respiratory effort, lungs clear to auscultation Cardiovascular: Rate/Rhythm: regular rate and regular rhythm Vessels: no JVD Extremities: no calf tenderness and no edema Gastrointestinal (Abdomen): Inspection/Auscultation: + abdomen distended; + abnormal bowel sounds (high-pitched) Percussion/Palpation: abdomen soft; abdomen nontender Musculoskeletal: Extremities: no cyanosis Skin: no rashes, warm and dry Psychiatric: Orientation: alert and oriented x 3 Results & Data Results & Data ([facility]) Vital Signs (Past 12 Hours) Vital Signs Temp Pulse Pulse Resp BP BP Pulse Ox 05/31/20 19:49 36.9 C 83 18 177/72 H 100 05/31/20 16:00 87 05/31/20 15:19 36.6 C 103 H 18 186/93 H 100 05/31/20 11:11 36.9 C 100 H 20 166/66 H 100 Laboratory Results 05/31/20 07:44 (1) Hypertension Hypertension type: essential hypertension Qualified Code(s): I10 - Essential (primary) hypertension (2) Diabetes type 2, controlled Diabetes mellitus supervisor intermediates insulin use: with residential use Diabetes mellitus complication status: with unspecified complications Qualified Code(s): E11.8 - Type 2 diabetes mellitus with unspecified complications; Z79.4 - retirement (current) use of insulin
[2020-06-01] MEDS: INSULIN ASPART 100 UNITS/ML 3 ML PEN SC SCH ×5 (04:00→21:02)
[2020-06-01] MEDS: LEVOTHYROXINE SODIUM 112 MCG TABLET PO SCH (05:38)
[2020-06-01] MEDS: POLYETHYLENE (MIRALAX) 17 GM PACK PO SCH ×3 (05:38→18:19)
[2020-06-01] MEDS: LACTULOSE SYRUP 20 GM/30 ML UDC PO SCH ×4 (07:29→21:00)
[2020-06-01] MEDS: amLODIPine BESYLATE 5 MG TAB PO SCH (07:30)
[2020-06-01] MEDS: ATORVASTATIN 20 MG TAB PO SCH (07:30)
[2020-06-01] MEDS: PANTOprazole 40 MG TAB PO SCH (07:30)
[2020-06-01] MEDS: SENNA 8.6 MG TAB PO SCH (07:30)
[2020-06-01] MEDS: FUROSEMIDE 40 MG TAB PO SCH (07:31)
[2020-06-01] MEDS: PSYLLIUM 58.6% POWDER PACKET PO SCH (07:31)
[2020-06-01 08:38] LABS: BUN Creatinine Ratio 13.4 (10-20); Est GFR (African American) 34.9; Est GFR (Non-African American) 30.2; Potassium 3.6 mmol/L (3.5-5.1)
[2020-06-01] MEDS: D5NSS + 20MEQ KCL 20 MEQ/1,000 ML BAG IV SCH ×2 (08:47→20:10)
--- NOTE | 2020-06-01 09:31 | XRay Report ---
KUB CLINICAL HISTORY: obstipation COMPARISON STUDY: CT of the abdomen and pelvis May 28, 2020. KUB May 31, 2020. FINDINGS: Incidental note is made of cholecystectomy clips and partially visualized pacemaker leads. Colonic dilatation persists. This has mildly improved since prior exam. Transverse colon measures up to 8.3 cm in caliber. The amount of stool is significantly decreased when compared to CT of May 28, 2020. IMPRESSION: Moderate colonic distention, mildly improved since prior exam. ACT 112: Negative or not required by law. Electronically signed by: Memo Joya M.D. 06/01/2020 9:30 AM
--- NOTE | 2020-06-01 10:34 | Hospitalist Progress Note ---
Date of Service June 01, 2020 Assessment & Plan (1) Obstipation: per Dr. Willingham notes: Presented with severe constipation. GI consulted. Has received lactulose, MiraLax, and Fleet enemas with improvement. KUB today: extensive dilated loops of bowel. Continue bowel regimen. 06/01 KUB mildly improved still having cramping discussed with GI, will order another fleet enema Tylenol scheduled added in the afternoon, patient requested diet to be advanced, soft diet ordered (2) GERD (gastroesophageal reflux disease): Continue PPI. (3) Hypertension: Continue amlodipine. (4) CKD (chronic kidney disease) stage 4, GFR 15-29 ml/min: Creatinine day of admission was 2.23. Received IV fluids. Serum creatinine today = 1.5 decrease IV NSS (5) Hypokalemia: K = as low as 3.0. Replaced. K today = 3.6. Follow. (6) Hyponatremia: Sodium at time of admission 125. Hyponatremia probably due to electrolyte loss from N&V. Received IV fluids. Sodium today = 143. Follow. (7) Diabetes type 2, controlled: Hgb A1c 5.8. Pharmacy consulted for glycemic management. (8) Hypothyroidism: TSH 0.156. Continue levothyroxine. Recheck TSH in clinic once acute illness has resolved. (9) Bipolar 1 disorder: Continue usual meds. (10) DVT prophylaxis: No anticoagulants- hx of ICH and GI bleed. SCD's. Ambulate. (11) Discharge planning issues: Anticipated discharge to home with services (has 24-hour care). Family Medicine follow-up with Dr. Meadows. Admission and Anticipated Discharge Date Admission Date: May 30, 2020 Subjective ff up for obstipation seen sitting up in chair not in distress states she still has abdominal cramping with mild nausea (+) BMs yesterday, none yet today no headache, chest pain, dyspnea, palpitations ,dizziness no other symptoms Review of Systems Review of Systems: All systems reviewed & are unremarkable except as noted in Subjective Physical Exam Physical Exam: General- oriented x 3, not in distress, speaks in sentences with no effort or accessory muscle use Eyes- anicteric Neck- no JVD Lungs- clear breath sounds bilaterally, no rales/wheezes Heart- normal rate, regular rhythm; no murmurs Abdomen- normal bowel sounds, mildly distended, soft, nontender Extremities- no pretibial edema, no calf tenderness Neuro- alert, oriented x 3; no gross focal neurologic deficits Skin- warm & dry Results & Data Results & Data (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
[2020-06-01] MEDS: ACETAMINOPHEN 325 MG TAB PO SCH ×2 (11:12→18:19)
[2020-06-01] MEDS: QUEtiapine FUMARATE 200 MG TABCR PO SCH (21:00)
[2020-06-01] MEDS ORDERED: INSULIN GLARGINE SOLOSTAR 100 UNITS/ML 3 ML PEN SQ SCH (21:00)
[2020-06-01] MEDS: INSULIN GLARGINE SOLOSTAR 100 UNITS/ML 3 ML PEN SQ SCH (21:01)
[2020-06-02] MEDS: POLYETHYLENE (MIRALAX) 17 GM PACK PO SCH ×5 (00:12→20:27)
[2020-06-02] MEDS: INSULIN ASPART 100 UNITS/ML 3 ML PEN SC SCH ×7 (00:12→20:32)
[2020-06-02] MEDS: ACETAMINOPHEN 325 MG TAB PO SCH ×3 (02:32→18:36)
[2020-06-02] MEDS: LEVOTHYROXINE SODIUM 112 MCG TABLET PO SCH (05:58)
[2020-06-02] MEDS: FUROSEMIDE 40 MG TAB PO SCH (09:07)
[2020-06-02] MEDS: ATORVASTATIN 20 MG TAB PO SCH (09:07)
[2020-06-02] MEDS: amLODIPine BESYLATE 5 MG TAB PO SCH (09:08)
[2020-06-02] MEDS: PANTOprazole 40 MG TAB PO SCH (09:08)
[2020-06-02] MEDS: PSYLLIUM 58.6% POWDER PACKET PO SCH (09:09)
[2020-06-02] MEDS: SENNA 8.6 MG TAB PO SCH (09:09)
[2020-06-02] MEDS: LACTULOSE SYRUP 20 GM/30 ML UDC PO SCH ×4 (09:10→20:29)
[2020-06-02 11:51] LABS: BUN Creatinine Ratio 8.1 (10-20); Calcium 9.2 mg/dl (8.5-10.1); Creatinine Clr Calc Pharmacy 20.6 ml/min; Est GFR (African American) 30.7; Est GFR (Non-African American) 26.5; Magnesium 1.3 mg/dl (1.8-2.4); Potassium 3.7 mmol/L (3.5-5.1)
[2020-06-02] MEDS: D5NSS + 20MEQ KCL 20 MEQ/1,000 ML BAG IV SCH (13:04)
--- NOTE | 2020-06-02 13:12 | Pharmacy Report ---
Glycemic Control Progress Note - Date of Service June 02, 2020 - Scope Glycemic Pharmacist consulted for glycemic control to write orders per formerly [facility] inpatient glycemic control protocol. - Objective Accuchecks BSG(last 24 hours):: 06/01/20 06/01/20 06/01/20 16:48 20:09 23:59 Glucose POC Glucose 129 H 222 H 130 H 06/02/20 06/02/20 06/02/20 04:02 07:50 11:13 Glucose 150 H POC Glucose 87 120 H 06/02/20 11:44 Glucose POC Glucose 164 H HbA1c:: Hemoglobin A1c 5.8 % (4.5-5.6) H 05/29/20 06:24 - Recent Pertinent Medications The patient is currently receiving: * Basal insulin: Lantus 9 units every 24 hours * Correctional Insulin: Novolog Correction per scale ACHS Goal Range: Low 110 mg/dL - High 140 mg/dL Correction Factor: (PER PROTOCOL) mg/dL/unit * Prandial insulin: Per carb ratio of 1 unit per 9 grams CHO consumed - Outpatient Anti-Diabetic Meds Lantus 12 units HS Novolog sliding scale - Assessment & Plan ASSESSMENT: * See progress note from 05/28/20 for more background info, in short: * Pt receiving SQ basal bolus insulin regimen for hyperglycemia secondary to baseline DM (outpatient regimen on hold). Patient also receiving D5NS + 20 KCL @ 100 mL/hr. * Patient is currently receiving an average of 27 units of insulin per day * 9 units of basal insulin * 18 units of prandial/correctional insulin * BSGs ranging 129 - 222 mg/dl over the past 24hrs * Changes needed to insulin regimen: * AM Fasting BSG = 120 mg/dl. This is in goal range for patient based on inpatient targets and co-morbidities. Therefore Basal insulin will be continued. * Post-prandial BSGs were elevated yesterday --- switched patient to weight- based stress of 3 Novolog dosing for now. * Total daily dose = ~35 units. Increased insulin appropriately. PLAN FOR INPATIENT GLYCEMIC CONTROL: * Continuing Lantus 9 units SQ HS * STARTING correction factor of 25 mg/dl/unit * TIGHTENING carb ratio to 1 unit per 7 grams CHO consumed * Continuing goal range of Low 110 mg/dL - High 140 mg/dL * Please note that the plan above was derived based on current level of insulin resistance and hospital stress. These recommendations are appropriate for inpatient admission only. Plan of care upon discharge will need to be reassessed to avoid potential outpatient hypo/hyperglycemia. Thank you.
--- NOTE | 2020-06-02 19:31 | Hospitalist Progress Note ---
Date of Service June 02, 2020 Assessment & Plan (1) Obstipation: per Dr. Willingham notes: Presented with severe constipation. GI consulted. Has received lactulose, MiraLax, and Fleet enemas with improvement. KUB today: extensive dilated loops of bowel. Continue bowel regimen. 06/03 KUB mildly improved Patient had BMs with edema yesterday Feeling better today Tolerating diet well If continues to remain stable, with anticipate discharge to (2) GERD (gastroesophageal reflux disease): Continue PPI. (3) Hypertension: Continue amlodipine. (4) CKD (chronic kidney disease) stage 4, GFR 15-29 ml/min: Creatinine day of admission was 2.23. Received IV fluids. Serum creatinine today = 1.7 (5) Hypokalemia: K = as low as 3.0. Replaced. K today = 3.7 Follow. (6) Hyponatremia: Sodium at time of admission 125. Hyponatremia probably due to electrolyte loss from N&V. Received IV fluids. Sodium today = 140 Follow. (7) Diabetes type 2, controlled: Hgb A1c 5.8. Pharmacy consulted for glycemic management. (8) Hypothyroidism: TSH 0.156. Continue levothyroxine. Recheck TSH in clinic once acute illness has resolved. (9) Bipolar 1 disorder: Continue usual meds. (10) DVT prophylaxis: No anticoagulants- hx of ICH and GI bleed. SCD's. Ambulate. (11) Discharge planning issues: Anticipated discharge to home tomorrow with services (has 24-hour care). Family Medicine follow-up with Dr. Meadows. Admission and Anticipated Discharge Date Admission Date: May 30, 2020 Subjective Follow-up for obstipation Seen resting in chair, comfortable, not in distress States that she feels better today compared to yesterday Patient had abdominal pain, nausea vomiting, tolerating diet well Had BMs yesterday, none today no other symptoms Review of Systems Review of Systems: All systems reviewed & are unremarkable except as noted in Subjective Physical Exam Physical Exam: General- oriented x 3, not in distress, speaks in sentences with no effort or accessory muscle use Eyes- anicteric Neck- no JVD Lungs- clear BS bilaterally, no crackles or wheezing Heart- normal rate, regular rhythm; no murmurs Abdomen- normal bowel sounds, nondistended, soft, nontender Extremities- no pretibial edema, no calf tenderness Neuro- alert, oriented x 3; no gross focal neurologic deficits Skin- warm & dry Results & Data Results & Data ([facility]) Vital Signs (Past 12 Hours) Vital Signs Temp Pulse Resp BP BP Pulse Ox 06/02/20 19:00 36.9 C 82 20 181/80 H 100 06/02/20 14:37 37.2 C 80 16 135/70 99 Laboratory Results Laboratory Results - last 24 hr 06/01/20 06/01/20 06/02/20 20:09 23:59 04:02 Sodium Potassium Chloride Carbon Dioxide Anion Gap BUN Creatinine Est Cr Clr Drug Dosing Est GFR ( Amer) Est GFR (Non-Af Amer) BUN/Creatinine Ratio Glucose POC Glucose 222 H 130 H 87 Calcium Magnesium 06/02/20 06/02/20 06/02/20 07:50 11:13 11:44 Sodium 140 Potassium 3.7 Chloride 111 H Carbon Dioxide 21 Anion Gap 8.0 BUN 14 Creatinine 1.76 H Est Cr Clr Drug Dosing 20.6 Est GFR ( Amer) 30.7 Est GFR (Non-Af Amer) 26.5 BUN/Creatinine Ratio 8.1 L Glucose 150 H POC Glucose 120 H 164 H Calcium 9.2 Magnesium 1.3 L 06/02/20 16:11 Sodium Potassium Chloride Carbon Dioxide Anion Gap BUN Creatinine Est Cr Clr Drug Dosing Est GFR ( Amer) Est GFR (Non-Af Amer) BUN/Creatinine Ratio Glucose POC Glucose 123 H Calcium Magnesium (1) Hypertension Hypertension type: essential hypertension Qualified Code(s): I10 - Essential (primary) hypertension (2) Diabetes type 2, controlled Diabetes mellitus retirement insulin use: with retirement use Diabetes mellitus complication status: with unspecified complications Qualified Code(s): E11.8 - Type 2 diabetes mellitus with unspecified complications; Z79.4 - longterm (current) use of insulin
[2020-06-02] MEDS ORDERED: MAGNESIUM SULFATE / D5W 1 GM/100 ML BAG IV ONE (20:00)
[2020-06-02] MEDS: MAGNESIUM OXIDE 400 MG TAB PO SCH (20:26)
[2020-06-02] MEDS: QUEtiapine FUMARATE 200 MG TABCR PO SCH (20:29)
[2020-06-02] MEDS: INSULIN GLARGINE SOLOSTAR 100 UNITS/ML 3 ML PEN SQ SCH (20:31)
[2020-06-03] MEDS: ACETAMINOPHEN 325 MG TAB PO SCH ×2 (03:18→11:58)
[2020-06-03] MEDS: LEVOTHYROXINE SODIUM 112 MCG TABLET PO SCH (06:47)
[2020-06-03] MEDS: POLYETHYLENE (MIRALAX) 17 GM PACK PO SCH ×2 (06:48→11:59)
[2020-06-03 07:57] LABS: BUN Creatinine Ratio 9.4 (10-20); Calcium 8.9 mg/dl (8.5-10.1); Creatinine Clr Calc Pharmacy 19.5 ml/min; Est GFR (African American) 28.7; Est GFR (Non-African American) 24.8; Magnesium 1.8 mg/dl (1.8-2.4); Potassium 3.8 mmol/L (3.5-5.1)
[2020-06-03] MEDS: INSULIN ASPART 100 UNITS/ML 3 ML PEN SC SCH ×2 (08:09→12:00)
[2020-06-03] MEDS: ATORVASTATIN 20 MG TAB PO SCH (08:11)
[2020-06-03] MEDS: FUROSEMIDE 40 MG TAB PO SCH (08:11)
[2020-06-03] MEDS: LACTULOSE SYRUP 20 GM/30 ML UDC PO SCH ×2 (08:11→13:23)
[2020-06-03] MEDS: PSYLLIUM 58.6% POWDER PACKET PO SCH (08:12)
[2020-06-03] MEDS: MAGNESIUM OXIDE 400 MG TAB PO SCH (08:12)
[2020-06-03] MEDS: SENNA 8.6 MG TAB PO SCH (08:13)
[2020-06-03] MEDS: amLODIPine BESYLATE 5 MG TAB PO SCH (08:13)
[2020-06-03] MEDS: PANTOprazole 40 MG TAB PO SCH (08:13)
[2020-06-03] MEDS ORDERED: LACTULOSE SYRUP 20 GM/30 ML UDC PO ONE (11:12)
--- NOTE | 2020-06-03 14:31 | Pharmacy Report ---
Glycemic Control Progress Note - Date of Service June 03, 2020 - Scope Glycemic Pharmacist consulted for glycemic control to write orders per [facility] inpatient glycemic control protocol. - Objective Accuchecks BSG(last 24 hours):: 06/02/20 06/02/20 06/03/20 16:11 20:00 06:57 Glucose 87 POC Glucose 123 H 121 H 06/03/20 06/03/20 07:36 11:27 Glucose POC Glucose 98 148 H HbA1c:: Hemoglobin A1c 5.8 % (4.5-5.6) H 05/29/20 06:24 - Recent Pertinent Medications The patient is currently receiving: * Basal insulin: Lantus 9 units every 24 hours * Correctional Insulin: Novolog Correction per scale ACHS Goal Range: Low 110 mg/dL - High 140 mg/dL Correction Factor: 25 mg/dL/unit * Prandial insulin: Per carb ratio of 1 unit per 7 grams CHO consumed - Outpatient Anti-Diabetic Meds Lantus 12 units HS Novolog sliding scale - Assessment & Plan ASSESSMENT: * See progress note from 05/30/20 for more background info, in short: * Pt receiving SQ basal bolus insulin regimen for hyperglycemia secondary to bas mary DM (outpatient regimen on hold). * Patient is currently receiving an average of 20 units of insulin per day * 9 units of basal insulin * 11 units of prandial/correctional insulin * BSGs ranging 120 - 164 mg/dl over the past 24hrs * Changes needed to insulin regimen: * AM Fasting BSG = 98 mg/dl. This is slightly goal range for patient based on inpatient targets and co-morbidities. The patient's IVFs that contained dextrose were also cut. Reduce Lantus to 8 units. * Post-prandial BSGs are in range therefore no changes needed to CF/CR. * Total daily dose = ~20-25 units. PLAN FOR INPATIENT GLYCEMIC CONTROL: * DECREASING Lantus to 8 units SQ HS * Continuing correction factor of 25 mg/dl/unit * Continuing carb ratio of 1 unit per 7 grams CHO consumed * Continuing goal range of Low 110 mg/dL - High 140 mg/dL RECOMMENDATIONS FOR DISCHARGE: * Patient's HbA1C indicates extremely tight control. * Recommend continuing regimen at home as long as patient does not suffer from any hypoglycemia. Thank you.
--- NOTE | 2020-06-03 17:15 | Hospitalist Progress Note ---
Date of Service June 03, 2020 Assessment & Plan (1) Obstipation: per Dr. Willingham notes: Presented with severe constipation. GI consulted. Has received lactulose, MiraLax, and Fleet enemas with improvement. KUB: extensive dilated loops of bowel. repeat KUB mildly improved patient having regular BMs now Feeling much better overall Tolerating diet well discharge plan: increase Lactulose to BID Miralax daily continue usual Senna ff up with PCP next week (2) GERD (gastroesophageal reflux disease): Continue PPI. (3) Hypertension: Continue amlodipine. (4) CKD (chronic kidney disease) stage 4, GFR 15-29 ml/min: Creatinine day of admission was 2.23. Received IV fluids. Serum creatinine improved= 1.7 (5) Hypokalemia: K = as low as 3.0. Replaced. K improved = 3.8 (6) Hyponatremia: Sodium at time of admission 125. Hyponatremia probably due to electrolyte loss from N&V. Received IV fluids. Sodium improved= 140 (7) Diabetes type 2, controlled: Hgb A1c 5.8. Pharmacy consulted for glycemic management. (8) Hypothyroidism: TSH 0.156. Continue levothyroxine. Recheck TSH in clinic once acute illness has resolved. (9) Bipolar 1 disorder: Continue usual meds. (10) DVT prophylaxis: No anticoagulants- hx of ICH and GI bleed. SCD's. Ambulate. (11) Discharge planning issues: discharge to home with services (has 24-hour care). Family Medicine follow-up with Dr. Meadows. Follow up with GI as scheduled. Plan of care discussed with patient in detail and at length all questions answered she is understanding, agreeable, comfortable with the plan of care Admission and Anticipated Discharge Date Admission Date: May 30, 2020 Subjective ff up for obstipation, etc seen resting in chair, comfortable, more conversant states she feels better overall no nausea, abdominal pain no other symptoms re- evaluated in the afternoon Patient having dinner, comfortable States she had a bowel movement today No other symptoms Patient states that she is ready and would like to be discharged today Review of Systems Review of Systems: All systems reviewed & are unremarkable except as noted in Subjective Physical Exam Physical Exam: General- oriented x 3, not in distress, speaks in sentences with no effort or accessory muscle use Eyes- anicteric Neck- no JVD Lungs- clear breath sounds bilaterally, no crackles/wheezing Heart- normal rate, regular rhythm; no murmurs Abdomen- normal bowel sounds, nondistended, soft, nontender Extremities- no pretibial edema, no calf tenderness Neuro- alert, oriented x 3; no gross focal neurologic deficits Skin- warm & dry Results & Data Results & Data ([facility]) Vital Signs (Past 12 Hours) Vital Signs Temp Pulse Pulse Resp BP BP Pulse Ox 06/03/20 14:10 36.6 C 84 18 158/85 H 135/70 99 06/03/20 11:30 36.8 C 80 18 140/78 98 06/03/20 09:06 80 06/03/20 07:16 36.6 C 84 18 158/85 H 99 (1) Hypertension Hypertension type: essential hypertension Qualified Code(s): I10 - Essential (primary) hypertension (2) Diabetes type 2, controlled Diabetes mellitus emergency room doctor insulin use: with mcc use Diabetes mellitus complication status: with unspecified complications Qualified Code(s): E11.8 - Type 2 diabetes mellitus with unspecified complications; 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
--- NOTE | 2020-06-03 17:23 | Discharge Summary ---
Date of Service June 03, 2020 Admission HPI Per Admitting Provider 89-year-old female with a past medical history of urinary tract infection hemorrhoids, GI bleeding, anemia, weakness, dehydration, hypoxia, duodenal ulcer, hyperlipidemia, CKD stage IV, pacemaker, skull fracture, hypertension, hypothyroidism, subarachnoid subdural hemorrhage, type 2 diabetes, IBS, GERD, bipolar disorder, and hyperlipidemia who presents with abdominal pain starting today. It is associated with constipation for the past 5 days. She did use a laxative and had a bowel movement yesterday which her caregiver told her was black in color. She also had an episode of vomiting today which her caregiver stated was black. Currently denies passing gas or any bowel movements today. Primary Care Provider: Usama Meadows MD Admission Exam Per Admitting Provider Gen-AAO x 3, NAD, Afebrile, pleasant Head-NCAT, EOMI, PERRLA, Anicteric Sclera, No Posterior Pharyngeal Erythema Neck-Supple, No JVD, No Thyromegaly, No Masses, No LAD, No Bruits Lungs-Clear to Auscultation Bilaterally, No Rales, No Rhonchi, No Wheezing, No Crepitus Chest-No S4, +S1, +S2, No S3, No Murmurs, No Rubs, No Gallops, No Ectopy Abdomen-Soft, Bowel Sounds Present, Non Tender, mildly distended, No Hepatomegaly, No Splenomegaly, No Palpable Masses, No Rebound, No Rigidity, No Guarding Musculoskeletal-Full Range of Motion Bilaterally, No CVAT Extremities-No Cyanosis, No Clubbing, No Edema Nuero-Cranial Nerves II-XII grossly intact, Motor WNL, DTRs WNL, Strength WNL, Non Focal Psych-Normal Mood Principal Diagnosis Obstipation Discharge Exam General- oriented x 3, not in distress, speaks in sentences with no effort or accessory muscle use Eyes- anicteric Neck- no JVD Lungs- clear breath sounds bilaterally, no crackles/wheezing Heart- normal rate, regular rhythm; no murmurs Abdomen- normal bowel sounds, nondistended, soft, nontender Extremities- no pretibial edema, no calf tenderness Neuro- alert, oriented x 3; no gross focal neurologic deficits Skin- warm & dry Discharge Data Allergies Allergy/AdvReac Type Severity Reaction Status Date / Time Iodinated Contrast Media Allergy Severe Anaphylaxis Verified 05/28/20 16:36 mold Allergy Unknown UNKNOWN Verified 05/28/20 16:36 pollen extracts Allergy Unknown UNKNOWN Verified 05/28/20 16:36 mushroom Allergy Verified 05/28/20 16:37 Dust Allergy Unknown UNKNOWN Uncoded 05/28/20 16:37 Fungi Allergy Unknown UNKNOWN Uncoded 05/28/20 16:37 Consultations 05/28/20 17:19 ED Decision to Admit Stat 05/28/20 19:44 Consult Gastroenterology Routine Ordered Studies 05/28/20 15:17 CT abd pelvis wo con Stat Lung bases: The heart is enlarged noting trace pericardial effusion. Pacemaker leads are noted. A fat-containing Bochdalek hernia is seen at the left lung base. There is bibasilar scarring/atelectasis. No airspace consolidation or pleural effusion is identified. There is a moderate hiatal hernia. Liver: The unenhanced liver is normal in size, contour, and attenuation. There is no intrahepatic biliary ductal dilatation. Gallbladder: Surgically absent noting clips in the gallbladder fossa. Spleen: Normal in size and attenuation. Pancreas: Atrophic and grossly unremarkable. Adrenal glands: Unremarkable. Kidneys: The unenhanced kidneys demonstrate cortical atrophy and are without hydronephrosis. There are no renal calculi identified. Numerous bilateral renal cysts measure up to 4.4 cm. Abdominal vasculature: There is moderate to advanced atherosclerotic calcification and mild ectasia of the abdominal aorta. Bowel: There is severe constipation with associated colonic distention. The sigmoid measures up to 8 cm in diameter. There is no significant colonic wall thickening or pericolonic inflammation. No focal transition point is identified, and the colon is distended to the lower rectum. The small bowel loops are normal in caliber. The appendix is not identified and reported surgically absent. Peritoneum: There is no intraperitoneal free air. Trace free fluid is seen in the right paracolic gutter and pelvis. Lymphadenopathy: None. Pelvic viscera: The bladder is distended but otherwise normal in appearance. The uterus is surgically absent. No adnexal lesion is seen. There are small bilateral fat-containing inguinal hernias. Skeletal structures: The skeletal structures are osteopenic. There is a chronic compression deformity of T12. Lumbosacral spondylosis is noted. No lytic or blastic lesions are seen. IMPRESSION: 1. Severe constipation with associated colonic distention. 2. There is no colonic wall thickening or pericolonic inflammation. 3. The small bowel loops are normal in caliber. 4. Trace free fluid is seen in the paracolic gutters and pelvis. 5. Additional findings as above. Hospital Course (1) Obstipation: per Dr. Willingham notes: Presented with severe constipation. GI consulted. Has received lactulose, MiraLax, and Fleet enemas with improvement. KUB: extensive dilated loops of bowel. repeat KUB mildly improved patient having regular BMs now Feeling much better overall Tolerating diet well discharge plan: increase Lactulose to BID Miralax daily continue usual Senna ff up with PCP next week (2) GERD (gastroesophageal reflux disease): Continue PPI. (3) Hypertension: Continue amlodipine. (4) CKD (chronic kidney disease) stage 4, GFR 15-29 ml/min: Creatinine day of admission was 2.23. Received IV fluids. Serum creatinine improved= 1.7 (5) Hypokalemia: K = as low as 3.0. Replaced. K improved = 3.8 (6) Hyponatremia: Sodium at time of admission 125. Hyponatremia probably due to electrolyte loss from N&V. Received IV fluids. Sodium improved= 140 (7) Abnormal CT of the abdomen: please refer to full report in the Ordered Studies above evaluation, management and ff up as outpatient (8) Diabetes type 2, controlled: Hgb A1c 5.8. Pharmacy consulted for glycemic management. (9) Hypothyroidism: TSH 0.156. Continue levothyroxine. Recheck TSH in clinic once acute illness has resolved. (10) Bipolar 1 disorder: Continue usual meds. (11) DVT prophylaxis: No anticoagulants- hx of ICH and GI bleed. SCD's. Ambulate. (12) Discharge planning issues: discharge to home with services (has 24-hour care). Family Medicine follow-up with Dr. Meadows. Follow up with GI as scheduled. Plan of care discussed with patient in detail and at length all questions answered she is understanding, agreeable, comfortable with the plan of care Total Time Total Time Spent Total Time Spent (In Minutes): 45 minutes Discharge Plan Discharge Items Patient Disposition: Home - Home Health Services Reason For Visit: GI BLEED, CONSTIPATION Discharge Diagnosis: Obstipation Activity: Resume your previous activity Activity Comment: gradually increase as tolerated Lifting: Gradually increase as tolerated Non-emergency contact: Primary Care Provider Call non-emergency contact if: you have any medication questions, your symptoms worsen, your pain is not controlled, your pain is worsening, your pain is concerning for you and you have a fever Follow-up/Referrals: Reagan Douglas DO [Physician] - Usama Meadows MD [Primary Care Provider] - (Date & Time 06/08/2020 11:00 AM Provider Usama Meadows MD Department Family Practice [facility] ) Diet: Heart Healthy Addtl Attending Provider Instructions: Increase lactulose from 30ml once daily to twice a day. Hold the lactulose if you already have 1 BM/day. Resume the next day. Your new medication is Miralax daily- for constipation. Keep well hydrated. Call Primary Care Physician or return to the ER immediately if with worsening of symptoms, including abdominal pain, abdominal distention, nausea/vomiting, weakness, poor oral intake. Follow up with Primary Care Physician as outlined above. Follow up with [employer] Service [employer] as scheduled. Pending Studies at Discharge: No Stand-Alone Forms: [facility] [employer], Smoking Cessation Medications and DC Order Prescriptions: New polyethylene glycol 3350 [Miralax] 17 gram Powder In Packet 17 g PO DAILY Qty: 30 RF: 0 Continued quetiapine 400 mg tablet 400 mg PO HS RF: 0 furosemide 40 mg tablet 40 mg PO QAM RF: 0 Lantus Solostar U-100 Insulin 100 unit/mL (3 mL) insulin pen 12 unit SUBCUT HS RF: 0 multivitamin tablet 1 tab PO DAILY RF: 0 atorvastatin 20 mg tablet 20 mg PO DAILY RF: 0 amlodipine 10 mg tablet 10 mg PO DAILY RF: 0 levothyroxine 112 mcg tablet 112 mcg PO QAM RF: 0 insulin aspart U-100 [Novolog Flexpen U-100 Insulin] 100 unit/mL (3 mL) insulin pen 40 unit SUBCUT DIRECTED RF: 0 senna 8.6 mg capsule 17.2 mg PO DAILY Qty: 60 RF: 0 Metamucil [facility] Fiber 3.4 gram/5.8 gram powder 2.5 g PO DAILY Qty: 660 RF: 0 pantoprazole 40 mg tablet,delayed release (DR/EC) 40 mg PO QAM RF: 0 Changed lactulose 10 gram/15 mL solution 30 ml PO BID Qty: 0 RF: 0 Discharge Orders: Discharge Order (Routine); Ordered 06/03/20 Ordered By: Doug Bretrand Admission Data Admit Date/Time: 05/30/20 12:20 Attending Provider: Doug Bertrand Admit Provider: Regino Diaz Primary Care Provider: Usama Meadows Other Providers: Regino Diaz ; Brice Whitman ; Katelynn Agosto ; Gregory Salmeron ; Marychuy Esqueda ; Bonilla Ramos ; Catie Beyer ; Timothy Braga ; Danyel Pryor ; Yariel Oliveira ; Idalmis Smith ; Sveta Santiago ; Tamanna Oropeza ; Ana Griffin ; Ellis Oakes Other Interventions: Discharge Summary Assessment (RN) Last Done: 06/03/20 14:10
[2020-06-03] MEDS ORDERED: INSULIN GLARGINE SOLOSTAR 100 UNITS/ML 3 ML PEN SQ SCH (21:00)
== END 2020-06-03 17:24 | disposition home health service (06) | DRG 392 ==
LOC: 2W 14:54 → ED 14:54 → SUATTDRO 18:22 → 2W 19:17 → SUATTDRO 05-30 12:20

== ENCOUNTER 2020-12-08 20:34 | Observation (INO) ==
[2020-12-08] MEDS ORDERED: SODIUM CHLORIDE 0.9% 1000ML 500 ML IV ONE (21:41)
--- NOTE | 2020-12-08 21:45 | Emergency Department Note ---
Impression & Plan Emphysematous cystitis, Constipation, Abdominal pain ED Provider Note NAME: PRINCESS OTT AGE: 80 SEX: F : 1940 ARRIVES VIA: Ambulance INFORMANT: Patient, ED PROVIDER(S): Danyel Albarado DO CHIEF COMPLAINT: Abdominal pain HPI: The patient is an 80-year-old female who presented to the emergency department for an evaluation of constipation and abdominal pain. She was seen in our facility earlier today with similar complaints. She describes very severe lower abdominal pain. She tried taking the medication she was given in the emergency department and only started having bleeding of her external hemorrhoids. She states that she wants to have an enema and to have further cleanout of her constipation. She denies having any chest pain. She has no shortness of breath. She is noticed no fever. The patient states her symptoms are moderate to severe. She has had similar symptoms in the past and does have a chronic GI doctor. She does take medications for chronic constipation as well. ROS: See above HPI for pertinent positives & negatives. A total of 10 systems reviewed and were otherwise negative. PAST MEDICAL HISTORY: See Below PAST SURGICAL HISTORY: See Below FAMILY HISTORY: See Below SOCIAL HISTORY: See Below HOME MEDICATIONS: See Below ALLERGIES: See Below VITALS: See Below PHYSICAL EXAMINATION: GENERAL: Patient is awake alert in no acute distress patient is resting comf ortably and showing no signs of anxiety EYES: The conjunctivae are clear. The pupils are round and reactive. EARS, NOSE, MOUTH AND THROAT: The nose is without any evidence of any deformity. Mucous membranes are moist. Tongue is midline. NECK: The neck is nontender and supple. RESPIRATORY: Normal respiratory effort is noted there is no evidence of wheezing rhonchi or rales CARDIOVASCULAR: Regular rate and rhythm noted there no murmurs rubs or gallops normal S1 normal S2. GASTROINTESTINAL: The abdomen is moderately distended and diffusely tender. There is no specific guarding or rigidity. MUSCULOSKELETAL/EXTREMITIES: There is no evidence of gross deformity full range of motion is noted in the hips and shoulders. SKIN: There is no obvious evidence of any rash. There are no petechiae, pallor or cyanosis noted. NEUROLOGIC: Patient is awake alert and oriented x3. MEDICAL DECISION MAKING: The patient is an 80-year-old female who presented to the emergency department for an evaluation of abdominal pain. The patient has a history of chronic constipation. She was seen in our facility recently with similar complaints. She was treated in usual fashion but continues to have significant abdominal discomfort and constipation. I discussed the patient's laboratory and radiographic studies with her. She was found to have signs of emphysematous cystitis on CT as well as significant urinary tract infection on urinalysis. She was treated with IV fluids and IV Zosyn in the emergency department. She has had a urine culture in the past that is grown out Pseudomonas but more recently has grown out E. coli. I discussed patient's condition with her. I also discussed her [facility] They have agreed to evaluate the patient in the emergency department for further management and disposition. Triage Nursing notes reviewed. Prior medical records reviewed Vital Signs: reviewed and remarkable for elevated blood pressure. Differential diagnosis: Etiologies such as appendicitis, diverticulitis, obstruction, inflammatory bowel disease, renal colic, PUD, biliary pathology, pancreatitis, mesenteric ischemia, aortic pathology, infections, genitourinary, UTI, perforated viscus, as well as others were entertained. ER treatment provided: See below Diagnostics interpreted by me: ECG: none Cardiac Monitoring: An order was placed for continuous cardiac monitoring. The monitor shows a rate of 87 bpm sinus with rhythm. Laboratory studies: As stated above and show below. Imaging studies: See below Consultation(s): 0050: I discussed this case with Dr. Lopez who is [facility]call for [facility]. He will evaluate the patient in the emergency department. Past Med/Surg History Medical History Anemia of chronic disease Anxiety Bipolar 1 disorder CKD (chronic kidney disease) stage 4, GFR 15-29 ml/min Diabetes type 2, controlled Disc degeneration, lumbar Fracture of parietal bone of skull GERD (gastroesophageal reflux disease) Jonathan's thyroiditis Hemorrhage, subdural, traumatic HLD (hyperlipidemia) Hyperparathyroidism Hypertension Hypothyroidism IBS (irritable bowel syndrome) Irritable bowel syndrome with constipation Osteopenia Pacemaker Subarachnoid, subdural, and extradural hemorrhage, following injury Surgical History H/O lumpectomy History of total abdominal hysterectomy and bilateral salpingo-oophorectomy Hx of cholecystectomy Family History Sister Colorectal cancer Other Cancer Diabetes History of hysterectomy Hypertension Stroke Social History Smoking Status: Never smoker Hx Alcohol Use: No Hx Substance Use: No Preferred Language: Danish Communication Ability: Effective Visual Impairment: No Limitations Hearing Ability: Normal Job Counselor Required: No Beliefs That Will Affect Care: None marital status: Current Living Situation: Spouse Current Living Situation Comment: home health Feels Safe at Home: Yes Assistive Devices: Walker Allergies Allergies Allergy/AdvReac Type Severity Reaction Status Date / Time Iodinated Contrast Media Allergy Severe Anaphylaxis Verified 12/08/20 21:01 mold Allergy Unknown UNKNOWN Verified 12/08/20 21:01 pollen extracts Allergy Unknown UNKNOWN Verified 12/08/20 21:01 mushroom Allergy Verified 12/08/20 21:01 Dust Allergy Unknown UNKNOWN Uncoded 12/08/20 21:01 Fungi Allergy Unknown UNKNOWN Uncoded 12/08/20 21:01 Home Meds Home Medications Medication Instructions Recorded Confirmed atorvastatin 20 mg tablet 20 mg PO DAILY 03/03/19 12/08/20 multivitamin 1 tab PO DAILY 03/03/19 12/08/20 levothyroxine 112 mcg PO QAM 05/07/19 12/08/20 furosemide 40 mg tablet 40 mg PO QAM 02/15/20 12/08/20 quetiapine 400 mg tablet 400 mg PO HS 02/15/20 12/08/20 amlodipine 10 mg PO DAILY 04/15/20 12/08/20 insulin aspart U-100 [Novolog 40 unit SUBCUT DIRECTED 05/15/20 12/08/20 Flexpen U-100 Insulin] pantoprazole 40 mg PO QAM 05/28/20 12/08/20 Previous Rx's Medication Instructions Recorded Metamucil [facility] Fiber 2.5 g PO DAILY #660 g 05/15/20 senna 17.2 mg PO DAILY #60 cap 05/15/20 lactulose 30 ml PO BID #0 ml 06/03/20 polyethylene glycol 3350 [Miralax] 17 g PO DAILY #30 ea 06/03/20 Lantus Solostar U-100 Insulin 100 12 unit SUBCUT HS #15 ml NS 07/19/20 unit/mL (3 mL) subcutaneous pen blood sugar diagnostic #500 ea 10/03/20 pen needle, diabetic 31 gauge x #500 ea 10/03/2016" Results & Data (ED) Vital Signs Vital Signs - 24 hr 12/08/20 20:35 12/08/20 20:45 12/08/20 21:00 Temperature 37.5 C Temperature Source Oral Pulse Rate 81 78 87 Pulse Rate from SpO2 Sensor 78 87 Pulse Rhythm Regular Pulse Strength Normal Respiratory Rate 16 25 H 21 Respiratory Effort / Characteristics Non-Labored Spontaneous Respiratory Depth Normal Respiratory Pattern Regular Blood Pressure 184/112 H 184/112 H 178/99 H Blood Pressure Mean 136 136 125 Blood Pressure Position Lying Pulse Oximetry 97 96 96 Oxygen Delivery Method Room Air Room Air Room Air Sepsis Recent Fever Within 48 Hours No Sepsis New/Unexplained Change in Mental Status No Sepsis Action Taken by Nursing No Action Required Home Medications Current Medication List: was personally reviewed by me Laboratory Data Attestation: I reviewed the patient's lab results. Result diagrams: 12/08/20 22:31 12/08/20 22:31 Lab Results 12/08/20 12/08/20 12/08/20 Range/Units 22:31 22:31 23:21 WBC 8.22 (4.8-10.8) K/uL RBC 4.07 L (4.2-5.4) M/uL Hgb 12.2 (12.0-16.0) g/dL Hct 37.6 (37-47) % MCV 92.4 (80-100) fL MCH 30.0 (25-34) pg MCHC 32.4 (32-36) g/dL RDW Std Deviation 46.2 (36.4-46.3) fL RDW Coeff of Tim 13.7 (11.5-14.5) % Plt Count 225 (130-400) K/uL MPV 11.8 H (7.4-10.4) fL Immature Gran % (Auto) 0.1 % Neut % (Auto) 68.7 % Lymph % (Auto) 19.5 % [place] % (Auto) 4.7 % Eos % (Auto) 6.6 % Baso % (Auto) 0.4 % Neut # (Auto) 5.65 (1.4-6.5) K/uL Lymph # (Auto) 1.60 (1.2-3.4) K/uL [place] # (Auto) 0.39 (0.11-0.59) K/uL Eos # (Auto) 0.54 H (0-0.5) K/uL Baso # (Auto) 0.03 (0-0.2) K/uL Immature Gran # (Auto) 0.01 (0.00-0.02) K/uL Sodium 146 H D (136-145) mmol/L Potassium 3.6 D (3.5-5.1) mmol/L Chloride 114 H (98-107) mmol/L Carbon Dioxide 24 (21-32) mmol/L Anion Gap 8.0 (3-11) BUN 29 H (7-18) mg/dl Creatinine 2.44 H D (0.6-1.2) mg/dl Est Cr Clr Drug Dosing 15.3 ml/min Est GFR ( Amer) 20.7 ml/min Est GFR (Non-Af Amer) 17.8 ml/min BUN/Creatinine Ratio 12.1 (10-20) Glucose 70 (70-99) mg/dl Calcium 10.1 D (8.5-10.1) mg/dl Total Bilirubin 0.3 (0.2-1) mg/dl AST 38 H (15-37) U/L ALT 26 (12-78) U/L Alkaline Phosphatase 232 H (45-117) U/L Total Protein 8.6 H D (6.4-8.2) gm/dl Albumin 3.8 (3.4-5.0) gm/dl Globulin 4.8 H (2.5-4.0) gm/dl Albumin/Globulin Ratio 0.8 L (0.9-2) Lipase 159 (73-393) U/L Urine Color Urine Appearance (Clear) Urine pH (4.5-7.5) Ur Specific [place] (1.000-1.030) Urine Protein (Negative) Urine Glucose (UA) (Negative) Urine Ketones (Negative) Urine Blood (Negative) Urine Nitrite (Negative) Urine Bilirubin (Negative) Urine Urobilinogen (Negative) Ur Leukocyte Esterase (Negative) Urine WBC (Auto) (0-5) /hpf Urine RBC (Auto) (0-4) /hpf U Hyaline Cast (Auto) (0-5) /lpf U Epithel Cells (Auto) (0-5) /lpf Urine Bacteria (Auto) (Negative) COVID-19 Eval Order Covid19 at [facility] SARS-CoV-2 (PCR) (Negative) 12/08/20 12/08/20 Range/Units 23:21 23:50 WBC (4.8-10.8) K/uL RBC (4.2-5.4) M/uL Hgb (12.0-16.0) g/dL Hct (37-47) % MCV (80-100) fL MCH (25-34) pg MCHC (32-36) g/dL RDW Std Deviation (36.4-46.3) fL RDW Coeff of Tim (11.5-14.5) % Plt Count (130-400) K/uL MPV (7.4-10.4) fL Immature Gran % (Auto) % Neut % (Auto) % Lymph % (Auto) % [place] % (Auto) % Eos % (Auto) % Baso % (Auto) % Neut # (Auto) (1.4-6.5) K/uL Lymph # (Auto) (1.2-3.4) K/uL [place] # (Auto) (0.11-0.59) K/uL Eos # (Auto) (0-0.5) K/uL Baso # (Auto) (0-0.2) K/uL Immature Gran # (Auto) (0.00-0.02) K/uL Sodium (136-145) mmol/L Potassium (3.5-5.1) mmol/L Chloride (98-107) mmol/L Carbon Dioxide (21-32) mmol/L Anion Gap (3-11) BUN (7-18) mg/dl Creatinine (0.6-1.2) mg/dl Est Cr Clr Drug Dosing ml/min Est GFR ( Amer) ml/min Est GFR (Non-Af Amer) ml/min BUN/Creatinine Ratio (10-20) Glucose (70-99) mg/dl Calcium (8.5-10.1) mg/dl Total Bilirubin (0.2-1) mg/dl AST (15-37) U/L ALT (12-78) U/L Alkaline Phosphatase (45-117) U/L Total Protein (6.4-8.2) gm/dl Albumin (3.4-5.0) gm/dl Globulin (2.5-4.0) gm/dl Albumin/Globulin Ratio (0.9-2) Lipase (73-393) U/L Urine Color Yellow Urine Appearance Cloudy A (Clear) Urine pH 6.5 (4.5-7.5) Ur Specific [place] 1.011 (1.000-1.030) Urine Protein 3+ H (Negative) Urine Glucose (UA) Negative (Negative) Urine Ketones Negative (Negative) Urine Blood 3+ H (Negative) Urine Nitrite Negative (Negative) Urine Bilirubin Negative (Negative) Urine Urobilinogen Negative (Negative) Ur Leukocyte Esterase 2+ H (Negative) Urine WBC (Auto) >30 H (0-5) /hpf Urine RBC (Auto) >30 H (0-4) /hpf U Hyaline Cast (Auto) 1-5 (0-5) /lpf U Epithel Cells (Auto) >30 H (0-5) /lpf Urine Bacteria (Auto) 4+ H (Negative) COVID-19 Eval Order SARS-CoV-2 (PCR) NEGATIVE (Negative) Administered Medications Discontinued Medications Sodium Chloride (Nss 1000ml) 500 mls @ 999 mls/hr IV .Q31M ONE Stop: 12/08/20 22:11 Last Admin: 12/08/20 22:35 Dose: 999 mls/hr Documented by: [id number] Piperacillin Sod/Tazobactam Sod (Zosyn) 4.5 gm in 120 mls @ 240 mls/hr IV NOW ONE Stop: 12/09/20 00:21 Last Admin: 12/09/20 00:13 Dose: 240 mls/hr Documented by: [id number] Discharge Plan Visit Data Chief Complaint: Rectal Pain ED Provider: Danyel Albarado Discharge Problem: Emphysematous cystitis, Constipation, Abdominal pain Patient Disposition: Being Evaluated by Hospitalist Condition: Good Forms Stand Alone Forms: [employer] Prescriptions Prescriptions: No Action Lantus Solostar U-100 Insulin 100 unit/mL (3 mL) insulin pen 12 unit SUBCUT HS Qty: 15 RF: 5 (DME) OneTouch Ultra Blue Test Strip Strip See Rx Instructions .ROUTE .MEDSUPPLY Qty: 500 RF: 3 (DME) pen needle, diabetic [Unifine Pentips] 31 gauge x 5/16" needle See Rx Instructions .ROUTE .MEDSUPPLY Qty: 500 RF: 3 quetiapine 400 mg tablet 400 mg PO HS RF: 0 furosemide 40 mg tablet 40 mg PO QAM RF: 0 multivitamin tablet 1 tab PO DAILY RF: 0 atorvastatin 20 mg tablet 20 mg PO DAILY RF: 0 amlodipine 10 mg tablet 10 mg PO DAILY RF: 0 levothyroxine 112 mcg tablet 112 mcg PO QAM RF: 0 insulin aspart U-100 [Novolog Flexpen U-100 Insulin] 100 unit/mL (3 mL) insulin pen 40 unit SUBCUT DIRECTED RF: 0 senna 8.6 mg capsule 17.2 mg PO DAILY Qty: 60 RF: 0 Metamucil [facility] Fiber 3.4 gram/5.8 gram powder 2.5 g PO DAILY Qty: 660 RF: 0 pantoprazole 40 mg tablet,delayed release (DR/EC) 40 mg PO QAM RF: 0 polyethylene glycol 3350 [Miralax] 17 gram Powder In Packet 17 g PO DAILY Qty: 30 RF: 0 lactulose 10 gram/15 mL solution 30 ml PO BID Qty: 0 RF: 0 Referrals Referrals: Usama Meadows MD [Primary Care Provider] - Discharge Problem: Constipation Qualifiers: Constipation type: unspecified constipation type Qualified Code(s): K59.00 - Constipation, unspecified Abdominal pain Qualifiers: Abdominal location: generalized Qualified Code(s): R10.84 - Generalized abdominal pain
[2020-12-08 22:55] LABS: Basophils # (auto) 0.03 K/uL (0-0.2); Basophils % (auto) 0.4 %; Eosinophils # (auto) 0.54 K/uL (0-0.5); Eosinophils % (auto) 6.6 %; Hematocrit (blood only) 37.6 % (37-47); Hemoglobin 12.2 g/dL (12.0-16.0); Immature Granulocytes # (auto) 0.01 K/uL (0.00-0.02); Immature Granulocytes % (auto) 0.1 %; Lymphocytes % (auto) 19.5 %; Mean Corpuscular Hgb Conc 32.4 g/dL (32-36); Mean Corpuscular Volume 92.4 fL (80-100); Mean Platelet Volume 11.8 fL (7.4-10.4); Monocytes # (auto) 0.39 K/uL (0.11-0.59); Monocytes % (auto) 4.7 %; Neutrophils # (auto) 5.65 K/uL (1.4-6.5); Neutrophils % (auto) 68.7 %; Platelet Count 225 K/uL (130-400); RDW Coefficient of Variation 13.7 % (11.5-14.5); RDW Standard Deviation 46.2 fL (36.4-46.3); Red Blood Count 4.07 M/uL (4.2-5.4); White Blood Count 8.22 K/uL (4.8-10.8)
[2020-12-08 23:20] LABS: Albumin Globulin Ratio 0.8 (0.9-2); Albumin Level 3.8 gm/dl (3.4-5.0); BUN Creatinine Ratio 12.1 (10-20); Bilirubin,Total 0.3 mg/dl (0.2-1); Calcium 10.1 mg/dl (8.5-10.1); Creatinine Clr Calc Pharmacy 15.3 ml/min; Est GFR (African American) 20.7 ml/min; Est GFR (Non-African American) 17.8 ml/min; Globulin 4.8 gm/dl (2.5-4.0); Potassium 3.6 mmol/L (3.5-5.1); Total Protein 8.6 gm/dl (6.4-8.2)
[2020-12-08] MEDS ORDERED: PIPERACILLIN/TAZOBACTAM 4.5 GM/120 ML BAG IV ONE (23:52)
[2020-12-08] MEDS ORDERED: PIPERACILL/TAZOBAC CONSULT ACTIVE PRN (23:52)
[2020-12-09 00:28] LABS: Appearance Urine Cloudy (Clear); Bacteria Urine Automated 4+ (Negative); Bilirubin Urine Negative (Negative); Blood Urine 3+ (Negative); Color Urine Yellow; Epithelial Cell Urine Auto >30 /lpf (0-5); Glucose Urine UA Negative (Negative); Ketones Urine Negative (Negative); Leukocyte Esterase Urine 2+ (Negative); Nitrite Urine Negative (Negative); Protein Urine 3+ (Negative); RBC Urine Automated >30 /hpf (0-4); Specific Gravity Urine 1.011 (1.000-1.030); Urobilinogen Urine Negative (Negative); WBC Urine Automated >30 /hpf (0-5); pH Urine 6.5 (4.5-7.5)
[2020-12-09] MEDS ORDERED: HYDROmorphone INJ 0.5 MG/0.5 ML SYR IV STA (04:11)
[2020-12-09] MEDS ORDERED: SODIUM CHLORIDE 0.9% 1000ML 1,000 ML IV SCH (04:38)
[2020-12-09] MEDS ORDERED: CARBOHYDRATES FOR HYPOGLYCEMIA PO PRN (05:15)
[2020-12-09] MEDS ORDERED: GLUCOSE 10 TABS/TUBE PO PRN (05:15)
[2020-12-09] MEDS ORDERED: GLUCAGON FOR INJ 1 MG VIAL IM PRN (05:15)
[2020-12-09] MEDS ORDERED: DEXTROSE 50% 50 ML SYRINGE IV PRN (05:15)
[2020-12-09] MEDS ORDERED: GLUCOSE 40% GEL 15 GM TUBE PO PRN (05:15)
--- NOTE | 2020-12-09 06:05 | History and Physical Report ---
DATE OF ADMISSION: 12/09/2020. CHIEF COMPLAINT: Constipation and abdominal pain. HISTORY OF PRESENT ILLNESS: This is an 80-year-old female with past medical history significant for type 2 diabetes, chronic kidney disease stage IV, hyperparathyroidism secondary to renal disease, hyperlipidemia, hypothyroidism, hypertension, chronic constipation, vitamin D deficiency, GERD, overactive bladder, anemia of chronic kidney disease, iron deficiency anemia, bipolar disorder, personal history of malignant neoplasm of breast, status post cardiac pacemaker, history of duodenal ulcer, who lives with her . Comes because of constipation and abdominal pain. The patient has chronic constipation and takes stool softeners at home and once in a while she says she has to come to the hospital to relieve her constipation. She was in the ER in the morning, was given enema and send home as per patient. But she says she went home and came back because of un relived constipation and abdominal discomfort. The patient was also found to have UTI.Feeling cold. Abdominal pain is better now, it is about 4/10 in severity. She has hemorrhoids and once in while she says there is some blood in the stools. She says whenever she is constipated, her urine output also comes down. Otherwise, she is micturating fine. No nausea or vomiting. No chest pain, no shortness of breath, no cough, no headache, no blurred visions, no runny nose. Except for constipation, she says everything else is fine. She ambulates okay at home. She has caregivers at home to help with her who has severe dementia, but she wants to go home as early as possible to be with her . Hemodynamics are stable. ALLERGIES: TO IODINE. PAST MEDICAL HISTORY: As mentioned above. PAST SURGICAL HISTORY: Breast lesion excision, hysterectomy, ____, cholecystectomy, vitrectomy with removal of epiretinal membrane. MEDICATIONS: Amlodipine 10 mg p.o. daily, atorvastatin 20 mg p.o. daily, NovoLog FlexPen as directed, lactulose 30 mL p.o. q.i.d., Lantus 18 units at bedtime, levothyroxine 112 mcg p.o. a.m. Metamucil 2.5 g p.o. daily, multivitamin one tablet p.o. daily, Protonix 40 mg p.o. daily, MiraLax 17 g p.o. daily, Seroquel 400 mg p.o. at bedtime. FAMILY HISTORY: Significant for sister has cancer, diabetes; father has stroke, eye problems, diabetes; mother has hypertension. SOCIAL HISTORY: , no smoking, no alcohol, no drug use. REVIEW OF SYSTEMS: As per HPI. Rest of the review of systems negative. PHYSICAL EXAMINATION: GENERAL: The patient is of moderate build, not in acute distress. VITAL SIGNS: Temperature 37.5, pulse 87, respiratory rate 21, blood pressure 178/99, and oxygen 96% on room air. HEENT: Pupils equal, round and reactive to light. Oral mucosa dry. NECK: No JVD, no neck masses. CARDIOVASCULAR: S1 and S2 heard. Regular rate and rhythm. No murmur, no gallop. RESPIRATORY SYSTEM: Normal AP diameter. No accessory muscle use. No wheezing, no crackles. ABDOMEN: Soft, bowel sounds present. Mild abdominal discomfort, no guarding, no rigidity. CENTRAL NERVOUS SYSTEM: Cranial nerves II-XII grossly intact, nonfocal. EXTREMITIES: No edema, no erythema. LABORATORY DATA: WBC 8.2, hemoglobin 12.2, hematocrit 37.6, platelets 225. Sodium 146, potassium 3.6, chloride 114, CO2 of 24, BUN 29, creatinine 2.4, serum glucose 70, calcium 10.1, total bilirubin 0.3, AST 38, ALT 26, alkaline phosphatase 232. Lipase 159. Urinalysis, +2 leukocyte esterase, +4 bacteria. SARS-CoV-2 PCR negative. IMAGING DATA: CT of abdomen and pelvis without contrast, preliminary report is showing emphysematous cystitis, significant stool throughout the colon suggestive of constipation. No obstruction. Cholecystectomy. No acute fracture. ASSESSMENT AND PLAN: This is an 80-year-old female who presents with ongoing constipation and also urinary tract infection. 1. Constipation: The patient has history of constipation and takes stool softeners at home. Once in a while she has to come to the hospital to get enema. Was in the ER yesterday morning, says the enema has not completely attempted. We will keep in the hospital and we will give her another enema in the morning and continue her home stool softeners. 2. Urinary tract infection: Emphysematous cystitis as per the preliminary report of the CAT scan. Follow the final report. ER started on Zosyn, which will continue. Follow the cultures. 3. History of diabetes: Continue with home insulin Lantus, insulin sliding scale. Will follow the blood sugars, follow the HbA1c levels. 4. History of gastroesophageal reflux disease: Will continue Protonix. 5. History of bipolar disorder: Continue Seroquel at bedtime. 6. Hypertension: Continue her amlodipine. Will monitor the blood pressure. 7. Hyperlipidemia: Continue statin. 8. Chronic kidney disease stage IV: Creatinine is 2.4, which seems to be at baseline as per the recent labs. Nephrology is following closely. She seems to be having some rapid deterioration of renal function lately and there is a plan for initiating dialysis if she continues to decline. The Lasix was stopped and she is not on ARBs because of history of hyperkalemia. 9. Anemia of chronic kidney disease: Her hemoglobin is stable at 12.2. 10. History of overactive bladder: Ditropan. 11. History of cardiac pacemaker. 12. Hypothyroidism: On Synthroid. 13. Deep venous thrombosis prophylaxis: Sequential compression devices because of history of subarachnoid subdural and extradural hemorrhage following injury and also history of GI bleed. DISPOSITION: Observation in medical floor. PT/OT prior to discharge. Social service to help with discharge planning. Level 1 full code. Addendum: Later she complained of abdominal pain.ordered a dose of Dilaudid . Ordered kub in am and lactic acid with am labs. Job ID: [id number] MTDD
[2020-12-09] MEDS: LEVOTHYROXINE SODIUM 112 MCG TABLET PO SCH (06:12)
[2020-12-09] MEDS: ACETAMINOPHEN 325 MG TAB PO PRN ×3 (06:12→21:03)
[2020-12-09 07:25] LABS: Basophils # (auto) 0.01 K/uL (0-0.2); Basophils % (auto) 0.1 %; Eosinophils # (auto) 0.47 K/uL (0-0.5); Eosinophils % (auto) 6.6 %; Hematocrit (blood only) 30.6 % (37-47); Hemoglobin 10.2 g/dL (12.0-16.0); Immature Granulocytes # (auto) 0.01 K/uL (0.00-0.02); Immature Granulocytes % (auto) 0.1 %; Lymphocytes # (auto) 1.71 K/uL (1.2-3.4); Lymphocytes % (auto) 24.1 %; Mean Corpuscular Hemoglobin 30.6 pg (25-34); Mean Corpuscular Hgb Conc 33.3 g/dL (32-36); Mean Corpuscular Volume 91.9 fL (80-100); Mean Platelet Volume 11.7 fL (7.4-10.4); Monocytes # (auto) 0.39 K/uL (0.11-0.59); Monocytes % (auto) 5.5 %; Neutrophils # (auto) 4.52 K/uL (1.4-6.5); Neutrophils % (auto) 63.6 %; Platelet Count 189 K/uL (130-400); RDW Coefficient of Variation 13.8 % (11.5-14.5); RDW Standard Deviation 46.2 fL (36.4-46.3); Red Blood Count 3.33 M/uL (4.2-5.4); White Blood Count 7.11 K/uL (4.8-10.8)
--- NOTE | 2020-12-09 07:26 | XRay Report ---
XR KUB/Abdomen 1 view CLINICAL HISTORY: constipation COMPARISON STUDY: December 08, 2020 at 6:41 hours FINDINGS: Stable chronic gaseous distention of the large bowel, unchanged since multiple prior studies. Large amount of stool is seen again projects into the pelvic region. Redemonstration of cholecystectomy clips within right upper quadrant and distal date of the cardiac p acemaker. Evaluation of osseous structures shows minimal degenerative changes of the spine. IMPRESSION: 1. Stable chronic basilar distention of the bowel. 2. Constipation pattern. ACT 112: Negative or not required by law. The above report was generated using voice recognition software. It may contain grammatical, syntax o r spelling errors. Electronically signed by: Estefany Cullen DO 12/09/2020 7:25 AM
[2020-12-09 07:42] LABS: BUN Creatinine Ratio 13.2 (10-20); Calcium 8.5 mg/dl (8.5-10.1); Creatinine Clr Calc Pharmacy 17.1 ml/min; Est GFR (African American) 23.6 ml/min; Est GFR (Non-African American) 20.3 ml/min; Magnesium 1.9 mg/dl (1.8-2.4); Potassium 3.7 mmol/L (3.5-5.1)
[2020-12-09] MEDS: ATORVASTATIN 20 MG TAB PO SCH (08:21)
[2020-12-09] MEDS: MULTIVITAMIN TAB PO SCH (08:21)
[2020-12-09] MEDS: PANTOprazole 40 MG TAB PO SCH (08:21)
[2020-12-09] MEDS: POLYETHYLENE (MIRALAX) 17 GM PACK PO SCH (08:21)
[2020-12-09] MEDS: amLODIPine BESYLATE 5 MG TAB PO SCH (08:21)
[2020-12-09] MEDS: LACTULOSE SYRUP 20 GM/30 ML UDC PO SCH ×4 (08:22→21:04)
[2020-12-09] MEDS: PSYLLIUM 58.6% POWDER PACKET PO SCH (08:22)
[2020-12-09] MEDS: INSULIN ASPART 100 UNITS/ML 3 ML PEN SC SCH ×4 (08:23→21:08)
[2020-12-09] MEDS: PIPERACILLIN/TAZOBACTAM 3.375 GM in DEXTROSE 5% 100 ML IV SCH ×2 (08:26→21:01)
--- NOTE | 2020-12-09 08:33 | XRay Report ---
XR KUB/Abdomen 1 view CLINICAL HISTORY: abdominal pain COMPARISON STUDY: 12/08/2020 FINDINGS: There are multiple dilated large and small bowel loops with multiple air-fluid levels. Ther e is gas present down to the level of the sigmoid colon. There is mottled gas within the pelvis. This could be secondary to the emphysematous cystitis described on the CT scan performed the day prior. IMPRESSION: Distended small bowel and colonic loops with multiple air-fluid levels. ACT 112: Negative or not required by law. Electronically signed by: Flaco Briggs M.D. 12/09/2020 8:31 AM
--- NOTE | 2020-12-09 08:40 | CT Scan Report ---
CT SCAN OF THE ABDOMEN AND PELVIS WITHOUT CONTRAST CLINICAL HISTORY: constiaption COMPARISON STUDY: May 15, 2020 TECHNIQUE: CT scan of the abdomen and pelvis was performed from the lung bases to the proximal femurs . Images are reviewed in the axial, sagittal, and coronal planes. IV contrast was not administered fo r this examination. A dose lowering technique was utilized adhering to the principles of ALARA. CT DOSE: 353.99 mGy.cm FINDINGS: Lower chest: Minimal atelectasis at dependent portions of bilateral lower lobes. Trace pericardial ef fusion. Liver: The unenhanced liver is normal in size, contour, and attenuation. There is no intrahepatic lio iary ductal dilatation. Gallbladder: Surgically absent. Spleen: Normal in size and attenuation. Pancreas: Unremarkable. Adrenal glands: Unremarkable. Kidneys: No hydronephrosis or nephrolithiasis seen. Heavy vascular calcifications are seen on the lef t. Multiple bilateral renal cysts are again seen, grossly unchanged since prior however evaluation is limited due to lack of IV contrast. Largest complex cyst with calcified septation is seen within inf erior aspect of the left kidney and not significantly changed since prior study performed in April 2020. Bowel: Large hiatal hernia is seen. Loops of large bowel are within upper limits of normal with exten sive amount of stool . Rectum is dilated measuring up to 7.7 cm in diameter with large amount of sto ol. Mild thickening of the distal rectal wall with surrounding mild fat stranding likely representing stercoral colitis. Loops of small bowel are nondilated and fluid-filled. Peritoneum: There is no intraperitoneal free air or abdominal ascites. Vasculature: The abdominal aorta is normal in course and caliber. Vascular calcifications are seen wi thin the aortic wall. Adenopathy: None. Pelvic viscera: Urinary bladder is fluid-filled. Uterus is surgically absent. Skeletal structures: Multilevel degenerative changes of the spine. Multiple large Schmorl nodules. Mi ld anterolisthesis of L4 on L5 is again seen. Mild compression fracture deformity of T12 is again vis ualized, unchanged since April 2020. IMPRESSION: 1. Extensive amount of stool within colonic loops which are in upper limits of normal. Fecal impacti on. Stercoral colitis involving rectum. 2. Large hiatal hernia. 3. Multiple bilateral renal cysts, incompletely evaluated on this nonenhanced exam. Complex cyst wit h calcified septa within lower pole of the left kidney. Please correlate above-mentioned findings wit h prior history. Further evaluation with ultrasound of the kidneys might be considered. 4. The rest of findings as detailed above. ACT 112: Positive. There are findings on this exam that require communication between the performing entity and the patient following Patient Test Result Information Act ([place] Act 112) guidelines. The above report was generated using voice recognition software. It may contain grammatical, syntax o r spelling errors. Electronically signed by: Estefany Cullen DO 12/09/2020 8:39 AM
[2020-12-09 08:49] LABS: Estimated Average Glucose 174 mg/dl; Hemoglobin A1C 7.7 % (4.5-5.6)
[2020-12-09] MEDS ORDERED: NITROGLYCERIN 2% OINTMENT 30GM TUBE EXT STA (08:55)
[2020-12-09] MEDS: carvediloL 3.125 MG TAB PO SCH ×2 (09:52→21:06)
--- NOTE | 2020-12-09 15:05 | Hospitalist Progress Note ---
Date of Service December 09, 2020 Assessment & Plan (1) Abdominal pain: This is her second visit to ER with admission to the hospital for abdominal pain likely secondary to fecal impaction and constipation with stercoral colitis No intestinal obstruction in the scan We will try to avoid any narcotics for pain control Pain has been improving with bowel movement We will keep her hydrated (2) Constipation: Has been going on for a long time Has been on lactulose and other stool softener at home We will add stimulant agent Bowels moved following hospitalization and she has been feeling better (3) Fecal retention: As above (4) UTI (urinary tract infection): Your examination is suggestive of infection and has been getting Zosyn for colitis and which will cover if there is any recurrent infection Await urine culture and sensitivity (5) Bipolar 1 disorder: Continue current medications No acute psychosis (6) CKD (chronic kidney disease) stage 4, GFR 15-29 ml/min: We will monitor PRP and electrolytes (7) Diabetes type 2, controlled: Has been on SSI (8) Hypertension: Remains on the upper side Coreg 3.125 mg p.o. twice daily has been added for better control of blood pressure (9) Hypothyroidism: Continue supplement DVT prophylaxis We will give subcu heparin Admission and Anticipated Discharge Date Admission Date: December 09, 2020 Subjective 12/09/2020 The patient was seen and examined in medical telemetry unit She was admitted with abdominal pain, constipation and high blood pressure She has had a bowel movement and her abdominal pain is reduced Denies any significant symptoms Review of Systems Review of Systems: All systems reviewed and are unremarkable except as noted below Gastrointestinal: + abdominal pain, + bloating and + constipation (Bowel movement); no nausea and no vomiting Physical Exam Physical Exam: Lying in bed comfortably Constitutional: well developed, well nourished and + ill appearing Eyes: PERRL, conjunctivae normal, anicteric sclerae ENMT: external ear and nose normal, oropharynx normal Neck: trachea midline, no thyromegaly Respiratory: no respiratory distress Auscultation: lungs clear to auscultation bilaterally Cardiovascular: Rate/Rhythm: regular rate and regular rhythm Heart Sounds: no murmur Extremities: no edema Gastrointestinal (Abdomen): Inspection/Auscultation: + abdomen distended and n ormal bowel sounds Percussion/Palpation: + abdomen tender (Lower abdomen without any guarding and no rigidity) and abdomen soft Musculoskeletal: No acute arthritis in any joint Neurologic: Alert, awake and oriented x3 Psychiatric: A+Ox3, euthymic affect Lymphatic: no cervical or axillary lymphadenopathy Results & Data Results & Data ([facility]) Vital Signs (Past 12 Hours) Vital Signs Temp Pulse Pulse Pulse Resp BP BP 12/09/20 10:54 36.6 C 72 18 12/09/20 09:58 36.6 C 87 18 12/09/20 08:12 36.9 C 82 16 221/109 H 12/09/20 05:05 36.8 C 87 18 156/93 H 12/09/20 05:00 36.8 C 87 18 156/93 H 12/09/20 04:01 89 23 12/09/20 04:00 89 16 179/115 H 12/09/20 03:30 85 15 189/107 H 12/09/20 03:01 90 16 12/09/20 03:00 87 17 191/108 H BP Pulse Ox 12/09/20 10:54 156/78 H 95 12/09/20 09:58 170/97 H 97 12/09/20 08:12 188/103 H 99 12/09/20 05:05 97 12/09/20 05:00 97 12/09/20 04:01 99 12/09/20 04:00 98 12/09/20 03:30 97 12/09/20 03:01 96 12/09/20 03:00 98 Laboratory Results Short CBC 12/08/20 12/09/20 Range/Units 22:31 07:13 WBC 8.22 7.11 (4.8-10.8) K/uL Hgb 12.2 10.2 L (12.0-16.0) g/dL Hct 37.6 30.6 L (37-47) % Plt Count 225 189 (130-400) K/uL BMP 12/08/20 12/09/20 22:31 07:12 Sodium 146 H D 144 Potassium 3.6 D 3.7 Chloride 114 H 116 H Carbon Dioxide 24 21 BUN 29 H 29 H Creatinine 2.44 H D 2.19 H Glucose 70 158 H Calcium 10.1 D 8.5 D Liver Function 12/08/20 Range/Units 22:31 Total Bilirubin 0.3 (0.2-1) mg/dl AST 38 H (15-37) U/L ALT 26 (12-78) U/L Alkaline Phosphatase 232 H (45-117) U/L Albumin 3.8 (3.4-5.0) gm/dl Urine 12/08/20 Range/Units 23:50 Urine Color Yellow Urine Appearance Cloudy A (Clear) Urine pH 6.5 (4.5-7.5) Ur Specific [place] 1.011 (1.000-1.030) Urine Protein 3+ H (Negative) Urine Glucose (UA) Negative (Negative) Medications Administered Current Inpatient Medications Acetaminophen (Acetaminophen 325 Mg Tab) 650 mg PO Q4H PRN PRN Reason: pain/fever Stop: 01/08/21 04:37 Last Admin: 12/09/20 06:12 Dose: 650 mg Documented by: Amlodipine Besylate (Amlodipine Besylate 5 Mg Tab) 10 mg PO DAILY [facility] Stop: 01/08/21 08:59 Last Admin: 12/09/20 08:21 Dose: 10 mg Documented by: Atorvastatin Calcium (Atorvastatin 20 Mg Tab) 20 mg PO DAILY [facility] Stop: 01/08/21 08:59 Last Admin: 12/09/20 08:21 Dose: 20 mg Documented by: Carvedilol (Carvedilol 3.125 Mg Tab) 3.125 mg PO BID [facility] Stop: 01/08/21 08:59 Last Admin: 12/09/20 09:52 Dose: 3.125 mg Documented by: Dextrose (Dextrose 50% 50 Ml Syringe) 25 - 50 ml IV UD PRN; Protocol PRN Reason: Hypoglycemia Protocol Stop: 01/08/21 05:14 Glucagon (Glucagon For Inj 1 Mg Vial) 1 mg IM UD PRN; Protocol PRN Reason: Hypoglycemia Protocol Stop: 01/08/21 05:14 Glucose (Glucose 40% Gel 15 Gm Tube) 15 - 30 gm PO UD PRN; Protocol PRN Reason: Hypoglycemia Protocol Stop: 01/08/21 05:14 Glucose (Glucose 10 Tabs/Tube) 4 - 8 tabs PO UD PRN; Protocol PRN Reason: Hypoglycemia Protocol Stop: 01/08/21 05:14 Sodium Chloride (Nss 1000ml) 1,000 mls @ 80 mls/hr IV .[id number] [facility] Stop: 12/09/20 17:07 Last Admin: 12/09/20 04:47 Dose: 80 mls/hr Documented by: Piperacillin Sod/Tazobactam (Sod 3.375 gm/ Dextrose) 115 mls @ 28.75 mls/hr IV Q12H [facility]; Protocol Stop: 12/19/20 07:59 Last Infusion: 12/09/20 12:26 Dose: Infused Documented by: Insulin Aspart (Insulin Aspart 100 Units/Ml 3 Ml Pen) 0 units SC ACHS [facility] Stop: 01/08/21 07:29 Last Admin: 12/09/20 12:18 Dose: 4 units Documented by: Insulin Glargine (Insulin Glargine Solostar 100 Units/Ml 3 Ml Pen) 8 units SC HS [facility] Stop: 01/08/21 20:59 Lactulose (Lactulose Syrup 20 Gm/30 Ml Udc) 20 gm PO QID [facility] Stop: 01/08/21 08:59 Last Admin: 12/09/20 12:19 Dose: 20 gm Documented by: Levothyroxine Sodium (Levothyroxine Sodium 112 Mcg Tablet) 112 mcg PO DAILYBB [facility] Stop: 01/08/21 06:29 Last Admin: 12/09/20 06:12 Dose: 112 mcg Documented by: Miscellaneous (Carbohydrates For Hypoglycemia ) 15 - 30 gm PO UD PRN PRN Reason: Hypoglycemia Treatment Stop: 01/08/21 05:14 Miscellaneous Information (Piperacill/Tazobac Consult Active) 1 ea N/A UD PRN PRN Reason: Consult Stop: 01/07/21 23:51 Multivitamins (Multivitamin Tab) 1 tab PO DAILY [facility] Stop: 01/08/21 08:59 Last Admin: 12/09/20 08:21 Dose: 1 tab Documented by: Pantoprazole Sodium (Pantoprazole 40 Mg Tab) 40 mg PO QAM [facility] Stop: 01/08/21 08:59 Last Admin: 12/09/20 08:21 Dose: 40 mg Documented by: Polyethylene Glycol (Polyethylene (Miralax) 17 Gm Pack) 17 gm PO DAILY [facility] Stop: 01/08/21 08:59 Last Admin: 12/09/20 08:21 Dose: 17 gm Documented by: Psyllium Hydrophilic Mucilloid (Psyllium 58.6% Powder Packet) 1 pkt PO DAILY [facility] Stop: 01/08/21 08:59 Last Admin: 12/09/20 08:22 Dose: 1 pkt Documented by: Quetiapine Fumarate (Quetiapine Fumarate 200 Mg Tab) 400 mg PO [facility] Stop: 01/08/21 20:59 (1) Diabetes type 2, controlled Diabetes mellitus complication status: with unspecified complications D 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 insulin use: with correction use Qualified Code(s): E11.8 - Type 2 diabetes mellitus with unspecified complications; Z79.4 - halfway (current) use of insulin (2) Abdominal pain Abdominal location: generalized Qualified Code(s): R10.84 - Generalized abdominal pain (3) Hypertension Hypertension type: essential hypertension Qualified Code(s): I10 - Essential (primary) hypertension (4) Fecal retention Constipation type: slow transit constipation Qualified Code(s): K59.01 - Slow transit constipation (5) Constipation Constipation type: unspecified constipation type Qualified Code(s): K59.00 - Constipation, unspecified
[2020-12-09] MEDS: SENNA 8.6 MG TAB PO SCH (16:09)
[2020-12-09] MEDS: QUEtiapine FUMARATE 200 MG TAB PO SCH (21:05)
[2020-12-09] MEDS: INSULIN GLARGINE SOLOSTAR 100 UNITS/ML 3 ML PEN SC SCH (21:07)
[2020-12-09] MEDS: HEPARIN SOD 5,000 UNIT/0.5 ML VIAL SQ SCH (21:13)
[2020-12-10] MEDS: LEVOTHYROXINE SODIUM 112 MCG TABLET PO SCH (05:30)
[2020-12-10 08:23] LABS: Basophils # (auto) 0.02 K/uL (0-0.2); Basophils % (auto) 0.3 %; Eosinophils # (auto) 0.43 K/uL (0-0.5); Eosinophils % (auto) 6.7 %; Hematocrit (blood only) 27.7 % (37-47); Hemoglobin 8.9 g/dL (12.0-16.0); Immature Granulocytes # (auto) 0.01 K/uL (0.00-0.02); Immature Granulocytes % (auto) 0.2 %; Lymphocytes # (auto) 1.77 K/uL (1.2-3.4); Lymphocytes % (auto) 27.5 %; Mean Corpuscular Hemoglobin 30.3 pg (25-34); Mean Corpuscular Hgb Conc 32.1 g/dL (32-36); Mean Corpuscular Volume 94.2 fL (80-100); Mean Platelet Volume 11.5 fL (7.4-10.4); Monocytes # (auto) 0.39 K/uL (0.11-0.59); Monocytes % (auto) 6.1 %; Neutrophils # (auto) 3.81 K/uL (1.4-6.5); Neutrophils % (auto) 59.2 %; Platelet Count 181 K/uL (130-400); RDW Coefficient of Variation 13.9 % (11.5-14.5); RDW Standard Deviation 48.1 fL (36.4-46.3); Red Blood Count 2.94 M/uL (4.2-5.4); White Blood Count 6.43 K/uL (4.8-10.8)
[2020-12-10 08:39] LABS: BUN Creatinine Ratio 11.8 (10-20); Calcium 8.5 mg/dl (8.5-10.1); Creatinine Clr Calc Pharmacy 14.3 ml/min; Est GFR (Non-African American) 16.4 ml/min; Potassium 3.9 mmol/L (3.5-5.1)
[2020-12-10] MEDS: INSULIN ASPART 100 UNITS/ML 3 ML PEN SC SCH ×4 (08:42→22:20)
[2020-12-10] MEDS: LACTULOSE SYRUP 20 GM/30 ML UDC PO SCH ×4 (08:48→22:14)
[2020-12-10] MEDS: HEPARIN SOD 5,000 UNIT/0.5 ML VIAL SQ SCH ×2 (08:50→22:20)
[2020-12-10] MEDS: SENNA 8.6 MG TAB PO SCH (08:51)
[2020-12-10] MEDS: MULTIVITAMIN TAB PO SCH (08:51)
[2020-12-10] MEDS: amLODIPine BESYLATE 5 MG TAB PO SCH (08:51)
[2020-12-10] MEDS: carvediloL 3.125 MG TAB PO SCH ×2 (08:51→22:20)
[2020-12-10] MEDS: ATORVASTATIN 20 MG TAB PO SCH (08:52)
[2020-12-10] MEDS: PSYLLIUM 58.6% POWDER PACKET PO SCH (08:59)
[2020-12-10] MEDS: POLYETHYLENE (MIRALAX) 17 GM PACK PO SCH (09:00)
[2020-12-10] MEDS: PIPERACILLIN/TAZOBACTAM 3.375 GM in DEXTROSE 5% 100 ML IV SCH ×2 (09:25→22:24)
[2020-12-10] MEDS: NSS + 20MEQ KCL 20 MEQ/1,000 ML BAG IV SCH ×2 (09:43→17:34)
[2020-12-10] MEDS: PANTOprazole 40 MG TAB PO SCH (09:44)
--- NOTE | 2020-12-10 10:40 | Hospitalist Progress Note ---
Date of Service December 10, 2020 Assessment & Plan (1) Abdominal pain: This is her second visit to ER with admission to the hospital for abdominal pain likely secondary to fecal impaction and constipation with stercoral colitis No intestinal obstruction in the scan We will try to avoid any narcotics for pain control Pain has been improving with bowel movement Abdominal pain is improved (2) Constipation: Has been going on for a long time Has been on lactulose and other stool softener at home We will add stimulant agent Bowels moved following hospitalization and she has been feeling better Advised to drink more fluid We will give cautious amount of intravenous fluid (3) UTI (urinary tract infection): Your examination is suggestive of infection and has been getting Zosyn for colitis and which will cover if there is any recurrent infection Await urine culture and [id number] bacilli sensitivities pending Continue current antibiotic (4) Bipolar 1 disorder: Continue current medications No acute psychosis (5) CKD (chronic kidney disease) stage 4, GFR 15-29 ml/min: BUN and creatinine are up Likely secondary to dehydration Advised to drink more fluid We will give cautious amount of intravenous fluid-monitor PRP (6) Diabetes type 2, controlled: Has been on SSI (7) Hypertension: Remains on the upper side Coreg 3.125 mg p.o. twice daily has been added for better control of blood pressure (8) Hypothyroidism: Continue supplement DVT prophylaxis We will give subcu heparin Advised to come out of bed on a chair We will get PT and OT evaluation Possible discharge tomorrow or on Saturday Admission and Anticipated Discharge Date Admission Date: December 09, 2020 Subjective 12/09/2020 The patient was seen and examined in medical telemetry unit She was admitted with abdominal pain, constipation and high blood pressure She has had a bowel movement and her abdominal pain is reduced Denies any significant symptoms 12/10/2020 The patient was seen and examined in medical floor She has been feeling much better Denies any abdominal distention, pain, nausea and or vomiting Bowel has not moved today Review of Systems Review of Systems: All systems reviewed and are unremarkable except as noted below Gastrointestinal: + abdominal pain, + bloating and + constipation (Bowel movement); no nausea and no vomiting Physical Exam Physical Exam: Lying in bed comfortably Constitutional: well developed, well nourished and + ill appearing Eyes: PERRL, conjunctivae normal, anicteric sclerae ENMT: external ear and nose normal, oropharynx normal Neck: trachea midline, no thyromegaly Respiratory: no respiratory distress Auscultation: lungs clear to auscultation bilaterally Cardiovascular: Rate/Rhythm: regular rate and regular rhythm Heart Sounds: no murmur Extremities: no edema Gastrointestinal (Abdomen): Inspection/Auscultation: + abdomen distended and normal bowel sounds Percussion/Palpation: + abdomen tender (Lower abdomen without any guarding and no rigidity) and abdomen soft Musculoskeletal: No acute arthritis in any joint Neurologic: Alert, awake and oriented x3. Generally very weak and lethargic Psychiatric: A+Ox3, euthymic affect Lymphatic: no cervical or axillary lymphadenopathy Results & Data Results & Data ([facility]) Vital Signs (Past 12 Hours) Vital Signs Temp Pulse Pulse Resp BP BP Pulse Ox 12/10/20 07:32 37.0 C 65 16 158/71 H 98 12/10/20 00:35 36.5 C 62 18 119/67 95 12/09/20 23:27 36.6 C 74 18 143/75 H 95 Laboratory Results Short CBC 12/10/20 Range/Units 07:57 WBC 6.43 (4.8-10.8) K/uL Hgb 8.9 L (12.0-16.0) g/dL Hct 27.7 L (37-47) % Plt Count 181 (130-400) K/uL BMP 12/10/20 07:57 Sodium 144 Potassium 3.9 Chloride 116 H Carbon Dioxide 22 BUN 31 H Creatinine 2.62 H D Glucose 127 H Calcium 8.5 Medications Administered Current Inpatient Medications Acetaminophen (Acetaminophen 325 Mg Tab) 650 mg PO Q4H PRN PRN Reason: pain/fever Stop: 01/08/21 04:37 Last Admin: 12/09/20 21:03 Dose: 650 mg Documented by: Amlodipine Besylate (Amlodipine Besylate 5 Mg Tab) 10 mg PO DAILY [facility] Stop: 01/08/21 08:59 Last Admin: 12/10/20 08:51 Dose: 10 mg Documented by: Atorvastatin Calcium (Atorvastatin 20 Mg Tab) 20 mg PO DAILY [facility] Stop: 01/08/21 08:59 Last Admin: 12/10/20 08:52 Dose: 20 mg Documented by: Carvedilol (Carvedilol 3.125 Mg Tab) 3.125 mg PO BID [facility] Stop: 01/08/21 08:59 Last Admin: 12/10/20 08:51 Dose: 3.125 mg Documented by: Dextrose (Dextrose 50% 50 Ml Syringe) 25 - 50 ml IV UD PRN; Protocol PRN Reason: Hypoglycemia Protocol Stop: 01/08/21 05:14 Glucagon (Glucagon For Inj 1 Mg Vial) 1 mg IM UD PRN; Protocol PRN Reason: Hypoglycemia Protocol Stop: 01/08/21 05:14 Glucose (Glucose 40% Gel 15 Gm Tube) 15 - 30 gm PO UD PRN; Protocol PRN Reason: Hypoglycemia Protocol Stop: 01/08/21 05:14 Glucose (Glucose 10 Tabs/Tube) 4 - 8 tabs PO UD PRN; Protocol PRN Reason: Hypoglycemia Protocol Stop: 01/08/21 05:14 Heparin Sodium (Porcine) (Heparin Sod 5,000 Unit/0.5 Ml Vial) 5,000 units SQ Q12 [facility] Stop: 01/08/21 20:59 Last Admin: 12/10/20 08:50 Dose: 5,000 units Documented by: Piperacillin Sod/Tazobactam (Sod 3.375 gm/ Dextrose) 115 mls @ 28.75 mls/hr IV Q12H [facility]; Protocol Stop: 12/19/20 07:59 Last Admin: 12/10/20 09:25 Dose: 28.8 mls/hr Documented by: Potassium Chloride/Sodium Chloride (Normal Saline W/20 Meq Kcl) 20 meq in 1,000 mls @ 125 mls/hr IV .Q8H [facility] Stop: 12/11/20 09:14 Last Admin: 12/10/20 09:43 Dose: 125 mls/hr Documented by: Insulin Aspart (Insulin Aspart 100 Units/Ml 3 Ml Pen) 0 units SC ACHS [facility] Stop: 01/08/21 07:29 Last Admin: 12/10/20 08:42 Dose: 2 units Documented by: Insulin Glargine (Insulin Glargine Solostar 100 Units/Ml 3 Ml Pen) 8 units SC HS [facility] Stop: 01/08/21 20:59 Last Admin: 12/09/20 21:07 Dose: 8 units Documented by: Lactulose (Lactulose Syrup 20 Gm/30 Ml Udc) 20 gm PO QID [facility] Stop: 01/08/21 08:59 Last Admin: 12/10/20 08:48 Dose: 20 gm Documented by: Levothyroxine Sodium (Levothyroxine Sodium 112 Mcg Tablet) 112 mcg PO DAILYBB [facility] Stop: 01/08/21 06:29 Last Admin: 12/10/20 05:30 Dose: 112 mcg Documented by: Miscellaneous (Carbohydrates For Hypoglycemia ) 15 - 30 gm PO UD PRN PRN Reason: Hypoglycemia Treatment Stop: 01/08/21 05:14 Miscellaneous Information (Piperacill/Tazobac Consult Active) 1 ea N/A UD PRN PRN Reason: Consult Stop: 01/07/21 23:51 Multivitamins (Multivitamin Tab) 1 tab PO DAILY [facility] Stop: 01/08/21 08:59 Last Admin: 12/10/20 08:51 Dose: 1 tab Documented by: Pantoprazole Sodium (Pantoprazole 40 Mg Tab) 40 mg PO QAM [facility] Stop: 01/08/21 08:59 Last Admin: 12/10/20 09:44 Dose: 40 mg Documented by: Polyethylene Glycol (Polyethylene (Miralax) 17 Gm Pack) 17 gm PO DAILY [facility] Stop: 01/08/21 08:59 Last Admin: 12/10/20 09:00 Dose: 17 gm Documented by: Psyllium Hydrophilic Mucilloid (Psyllium 58.6% Powder Packet) 1 pkt PO DAILY [facility] Stop: 01/08/21 08:59 Last Admin: 12/10/20 08:59 Dose: 1 pkt Documented by: Quetiapine Fumarate (Quetiapine Fumarate 200 Mg Tab) 400 mg PO HS [facility] Stop: 01/08/21 20:59 Last Admin: 12/09/20 21:05 Dose: 400 mg Documented by: Sennosides (Senna 8.6 Mg Tab) 17.2 mg PO QAM [facility] Stop: 01/08/21 15:14 Last Admin: 12/10/20 08:51 Dose: 17.2 mg Documented by: (1) Abdominal pain Abdominal location: generalized Qualified Code(s): R10.84 - Generalized abdominal pain (2) Constipation Constipation type: unspecified constipation type Qualified Code(s): K59.00 - Constipation, unspecified (3) Diabetes type 2, controlled Diabetes mellitus long filler cigar roller machine insulin use: with assisted use Diabetes mellitus complication status: with unspecified complications Qualified Code(s): E11.8 - Type 2 diabetes mellitus with unspecified complications; Z79.4 - detention (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
[2020-12-10] MEDS: ACETAMINOPHEN 325 MG TAB PO PRN (12:02)
[2020-12-10] MEDS: INSULIN GLARGINE SOLOSTAR 100 UNITS/ML 3 ML PEN SC SCH (22:21)
[2020-12-10] MEDS: QUEtiapine FUMARATE 200 MG TAB PO SCH (22:21)
[2020-12-11] MEDS: ACETAMINOPHEN 325 MG TAB PO PRN ×2 (01:11→06:18)
[2020-12-11] MEDS: NSS + 20MEQ KCL 20 MEQ/1,000 ML BAG IV SCH (01:18)
[2020-12-11] MEDS: LEVOTHYROXINE SODIUM 112 MCG TABLET PO SCH (06:18)
[2020-12-11 07:12] LABS: BUN Creatinine Ratio 11.4 (10-20); Calcium 8.2 mg/dl (8.5-10.1); Creatinine Clr Calc Pharmacy 12.7 ml/min; Est GFR (African American) 16.5 ml/min; Est GFR (Non-African American) 14.2 ml/min; Potassium 5.1 mmol/L (3.5-5.1)
[2020-12-11] MEDS: LACTULOSE SYRUP 20 GM/30 ML UDC PO SCH ×2 (08:55→12:40)
[2020-12-11] MEDS: PSYLLIUM 58.6% POWDER PACKET PO SCH (08:55)
[2020-12-11] MEDS: POLYETHYLENE (MIRALAX) 17 GM PACK PO SCH (08:55)
[2020-12-11] MEDS: SENNA 8.6 MG TAB PO SCH (08:55)
[2020-12-11] MEDS: ATORVASTATIN 20 MG TAB PO SCH (08:57)
[2020-12-11] MEDS: MULTIVITAMIN TAB PO SCH (08:57)
[2020-12-11] MEDS: INSULIN ASPART 100 UNITS/ML 3 ML PEN SC SCH ×2 (08:57→12:39)
[2020-12-11] MEDS: PANTOprazole 40 MG TAB PO SCH (08:57)
[2020-12-11] MEDS: HEPARIN SOD 5,000 UNIT/0.5 ML VIAL SQ SCH (08:57)
[2020-12-11] MEDS: amLODIPine BESYLATE 5 MG TAB PO SCH (08:57)
[2020-12-11] MEDS: carvediloL 3.125 MG TAB PO SCH (08:57)
[2020-12-11] MEDS: PIPERACILLIN/TAZOBACTAM 3.375 GM in DEXTROSE 5% 100 ML IV SCH (09:02)
[2020-12-11] MEDS ORDERED: NSS + 20MEQ KCL 20 MEQ/1,000 ML BAG IV SCH (10:00)
[2020-12-11] MEDS ORDERED: SODIUM CHLORIDE 0.9% 500 ML IV SCH (10:45)
[2020-12-11] MEDS ORDERED: cephALEXin 500 MG CAP PO SCH (11:00)
[2020-12-11] MEDS ORDERED: cephALEXin 250 MG CAP PO SCH (12:00)
--- NOTE | 2020-12-11 13:37 | Hospitalist Progress Note ---
Date of Service December 11, 2020 Assessment & Plan (1) Abdominal pain: This is her second visit to ER with admission to the hospital for abdominal pain likely secondary to fecal impaction and constipation with stercoral colitis No intestinal obstruction in the scan We will try to avoid any narcotics for pain control Pain has been improving with bowel movement Abdominal pain is improved More bowel movements and without any more abdominal pain and/or distention (2) Constipation: Has been going on for a long time Has been on lactulose and other stool softener at home We will add stimulant agent Bowels moved following hospitalization and she has been feeling better Advised to drink more fluid We will give cautious amount of intravenous fluid Constipation is resolved and the patient wants to go home (3) UTI (urinary tract infection): Your examination is suggestive of infection and has been getting Zosyn for colitis and which will cover if there is any recurrent infection Await urine culture -E. coli and is pansensitive except Bactrim Will change to oral Keflex before discharging home this afternoon (4) Bipolar 1 disorder: Continue current medications No acute psychosis (5) CKD (chronic kidney disease) stage 4, GFR 15-29 ml/min: BUN and creatinine are up Likely secondary to dehydration Advised to drink more fluid We will give cautious amount of intravenous fluid-monitor PRP Creatinine has been up in spite of intravenous fluid She admits that she has not been drinking enough fluid for the last few days or so She wants to go home and does not want to try any more intravenous fluid She agrees to drink more fluid We will check her PRP at 2:00 and if there is no deterioration I will discharge her this afternoon (6) Diabetes type 2, controlled: Has been on SSI (7) Hypertension: Remains on the upper side Coreg 3.125 mg p.o. twice daily has been added for better control of blood pressure (8) Hypothyroidism: Continue supplement DVT prophylaxis We will give subcu heparin Advised to come out of bed on a chair We will get PT and OT evaluation-has been ambulating without any difficulty and does not want to wait for PT and OT evaluation Discharge this afternoon Admission and Anticipated Discharge Date Admission Date: December 11, 2020 Subjective 12/09/2020 The patient was seen and examined in medical telemetry unit She was admitted with abdominal pain, constipation and high blood pressure She has had a bowel movement and her abdominal pain is reduced Denies any significant symptoms 12/10/2020 The patient was seen and examined in medical floor She has been feeling much better Denies any abdominal distention, pain, nausea and or vomiting Bowel has not moved today 12/11/2020 The patient was seen and examined in medical floor She has been feeling a lot better and she has had more bowel movements since yesterday Denies any abdominal pain and the weakness is gone Has been ambulating in the room and wants to go home He she wanted to drink more water at home rather than staying here and get some IV fluid Review of Systems Review of Systems: All systems reviewed and are unremarkable except as noted below Gastrointestinal: no abdominal pain, no bloating, no nausea, no vomiting and no constipation (Bowel movement) Physical Exam Physical Exam: Sitting on a chair without any acute distress Constitutional: well developed, well nourished and + ill appearing Eyes: PERRL, conjunctivae normal, anicteric sclerae ENMT: external ear and nose normal, oropharynx normal Neck: trachea midline, no thyromegaly Respiratory: no respiratory distress Auscultation: lungs clear to auscultation bilaterally Cardiovascular: Rate/Rhythm: regular rate and regular rhythm Heart Sounds: no murmur Extremities: no edema Gastrointestinal (Abdomen): Inspection/Auscultation: + abdomen distended and normal bowel sounds Percussion/Palpation: + abdomen tender (Lower abdomen without any guarding and no rigidity) and abdomen soft Musculoskeletal: No acute arthritis in any joint Neurologic: Alert, awake and oriented x3. No focal sensory or motor deficit appreciated Psychiatric: A+Ox3, euthymic affect Lymphatic: no cervical or axillary lymphadenopathy Results & Data Results & Data ([facility]) Vital Signs (Past 12 Hours) Vital Signs Temp Pulse Resp BP Pulse Ox 12/11/20 07:04 37.2 C 60 16 178/78 H 93 Laboratory Results [facility] 12/11/20 06:15 Sodium 143 Potassium 5.1 D Chloride 118 H Carbon Dioxide 21 BUN 34 H Creatinine 2.94 H D Glucose 134 H Calcium 8.2 L Medications Administered Current Inpatient Medications Acetaminophen (Acetaminophen 325 Mg Tab) 650 mg PO Q4H PRN PRN Reason: pain/fever Stop: 01/08/21 04:37 Last Admin: 12/11/20 06:18 Dose: 650 mg Documented by: Amlodipine Besylate (Amlodipine Besylate 5 Mg Tab) 10 mg PO DAILY [facility] Stop: 01/08/21 08:59 Last Admin: 12/11/20 08:57 Dose: 10 mg Documented by: Atorvastatin Calcium (Atorvastatin 20 Mg Tab) 20 mg PO DAILY [facility] Stop: 01/08/21 08:59 Last Admin: 12/11/20 08:57 Dose: 20 mg Documented by: Carvedilol (Carvedilol 3.125 Mg Tab) 3.125 mg PO BID [facility] Stop: 01/08/21 08:59 Last Admin: 12/11/20 08:57 Dose: 3.125 mg Documented by: Cephalexin HCl (Cephalexin 250 Mg Cap) 250 mg PO BID [facility]; Protocol Stop: 12/16/20 11:59 Last Admin: 12/11/20 12:40 Dose: 250 mg Documented by: Dextrose (Dextrose 50% 50 Ml Syringe) 25 - 50 ml IV UD PRN; Protocol PRN Reason: Hypoglycemia Protocol Stop: 01/08/21 05:14 Glucagon (Glucagon For Inj 1 Mg Vial) 1 mg IM UD PRN; Protocol PRN Reason: Hypoglycemia Protocol Stop: 01/08/21 05:14 Glucose (Glucose 40% Gel 15 Gm Tube) 15 - 30 gm PO UD PRN; Protocol PRN Reason: Hypoglycemia Protocol Stop: 01/08/21 05:14 Glucose (Glucose 10 Tabs/Tube) 4 - 8 tabs PO UD PRN; Protocol PRN Reason: Hypoglycemia Protocol Stop: 01/08/21 05:14 Heparin Sodium (Porcine) (Heparin Sod 5,000 Unit/0.5 Ml Vial) 5,000 units SQ Q12 [facility] Stop: 01/08/21 20:59 Last Admin: 12/11/20 08:57 Dose: 5,000 units Documented by: Insulin Aspart (Insulin Aspart 100 Units/Ml 3 Ml Pen) 0 units SC ACHS [facility] Stop: 01/08/21 07:29 Last Admin: 12/11/20 12:39 Dose: 5 units Documented by: Insulin Glargine (Insulin Glargine Solostar 100 Units/Ml 3 Ml Pen) 8 units SC HS [facility] Stop: 01/08/21 20:59 Last Admin: 12/10/20 22:21 Dose: 8 units Documented by: Lactulose (Lactulose Syrup 20 Gm/30 Ml Udc) 20 gm PO QID [facility] Stop: 01/08/21 08:59 Last Admin: 12/11/20 12:40 Dose: Not Given Documented by: Levothyroxine Sodium (Levothyroxine Sodium 112 Mcg Tablet) 112 mcg PO DAILYBB [facility] Stop: 01/08/21 06:29 Last Admin: 12/11/20 06:18 Dose: 112 mcg Documented by: Miscellaneous (Carbohydrates For Hypoglycemia ) 15 - 30 gm PO UD PRN PRN Reason: Hypoglycemia Treatment Stop: 01/08/21 05:14 Multivitamins (Multivitamin Tab) 1 tab PO DAILY [facility] Stop: 01/08/21 08:59 Last Admin: 12/11/20 08:57 Dose: 1 tab Documented by: Pantoprazole Sodium (Pantoprazole 40 Mg Tab) 40 mg PO QAM [facility] Stop: 01/08/21 08:59 Last Admin: 12/11/20 08:57 Dose: 40 mg Documented by: Polyethylene Glycol (Polyethylene (Miralax) 17 Gm Pack) 17 gm PO DAILY [facility] Stop: 01/08/21 08:59 Last Admin: 12/11/20 08:55 Dose: Not Given Documented by: Psyllium Hydrophilic Mucilloid (Psyllium 58.6% Powder Packet) 1 pkt PO DAILY [facility] Stop: 01/08/21 08:59 Last Admin: 12/11/20 08:55 Dose: Not Given Documented by: Quetiapine Fumarate (Quetiapine Fumarate 200 Mg Tab) 400 mg PO HS [facility] Stop: 01/08/21 20:59 Last Admin: 12/10/20 22:21 Dose: 400 mg Documented by: Sennosides (Senna 8.6 Mg Tab) 17.2 mg PO QAM [facility] Stop: 01/08/21 15:14 Last Admin: 12/11/20 08:55 Dose: Not Given Documented by: (1) Abdominal pain Abdominal location: generalized Qualified Code(s): R10.84 - Generalized abdominal pain (2) Constipation Constipation type: unspecified constipation type Qualified Code(s): K59.00 - Constipation, unspecified (3) Diabetes type 2, controlled Diabetes mellitus 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
[2020-12-11 14:33] LABS: BUN Creatinine Ratio 11.7 (10-20); Calcium 8.7 mg/dl (8.5-10.1); Creatinine Clr Calc Pharmacy 12.7 ml/min; Est GFR (African American) 16.5 ml/min; Est GFR (Non-African American) 14.2 ml/min; Potassium 4.8 mmol/L (3.5-5.1)
--- NOTE | 2020-12-11 14:44 | Discharge Summary ---
Date of Service December 11, 2020 Admission HPI Per Admitting Provider DICTATED BY: Nomi Lopez MD DATE OF ADMISSION: 12/09/2020. CHIEF COMPLAINT: Constipation and abdominal pain. HISTORY OF PRESENT ILLNESS: This is an 80-year-old female with past medical history significant for type 2 diabetes, chronic kidney disease stage IV, hyperparathyroidism secondary to renal disease, hyperlipidemia, hypothyroidism, hypertension, chronic constipation, vitamin D deficiency, GERD, overactive bladder, anemia of chronic kidney disease, iron deficiency anemia, bipolar disorder, personal history of malignant neoplasm of breast, status post cardiac pacemaker, history of duodenal ulcer, who lives with her . Comes because of constipation and abdominal pain. The patient has chronic constipation and takes stool softeners at home and once in a while she says she has to come to the hospital to relieve her constipation. She was in the ER in the morning, was given enema and send home as per patient. But she says she went home and came back because of un relived constipation and abdominal discomfort. The patient was also found to have UTI.Feeling cold. Abdominal pain is better now, it is about 4/10 in severity. She has hemorrhoids and once in while she says there is some blood in the stools. She says whenever she is constipated, her urine output also comes down. Otherwise, she is micturating fine. No nausea or vomiting. No chest pain, no shortness of breath, no cough, no headache, no blurred visions, no runny nose. Except for constipation, she says everything else is fine. She ambulates okay at home. She has caregivers at home to help with her who has severe dementia, but she wants to go home as early as possible to be with her . Hemodynamics are stable Admission Exam Per Admitting Provider GENERAL: The patient is of moderate build, not in acute distress. VITAL SIGNS: Temperature 37.5, pulse 87, respiratory rate 21, blood pressure 178/99, and oxygen 96% on room air. HEENT: Pupils equal, round and reactive to light. Oral mucosa dry. NECK: No JVD, no neck masses. CARDIOVASCULAR: S1 and S2 heard. Regular rate and rhythm. No murmur, no gallop. RESPIRATORY SYSTEM: Normal AP diameter. No accessory muscle use. No wheezing, no crackles. ABDOMEN: Soft, bowel sounds present. Mild abdominal discomfort, no guarding, no rigidity. CENTRAL NERVOUS SYSTEM: Cranial nerves II-XII grossly intact, nonfocal. EXTREMITIES: No edema, no erythema. Principal Diagnosis Abdominal pain likely secondary to constipation, UTI, CKD stage IV, type 2 diabetes, hypertension Discharge Exam Constitutional well developed, well nourished and + ill appearing Eyes PERRL, conjunctivae normal, anicteric sclerae ENMT external ear and nose normal, oropharynx normal Neck trachea midline, no thyromegaly Respiratory no respiratory distress Auscultation: lungs clear to auscultation bilaterally Cardiovascular Rate/Rhythm: regular rate and regular rhythm Heart Sounds: no murmur Extremities: no edema Gastrointestinal (Abdomen) Inspection/Auscultation: + abdomen distended and normal bowel sounds Percussion/Palpation: + abdomen tender (Lower abdomen without any guarding and no rigidity) and abdomen soft Psychiatric A+Ox3, euthymic affect Lymphatic no cervical or axillary lymphadenopathy Discharge Data Allergies Allergy/AdvReac Type Severity Reaction Status Date / Time Iodinated Contrast Media Allergy Severe Anaphylaxis Verified 12/08/20 21:01 mold Allergy Unknown UNKNOWN Verified 12/08/20 21:01 pollen extracts Allergy Unknown UNKNOWN Verified 12/08/20 21:01 mushroom Allergy Unknown Verified 12/09/20 15:09 Consultations 12/09/20 00:49 ED Decision to Admit Stat Ordered Studies 12/08/20 21:41 CT abd pelvis wo con Urgent Hospital Course (1) Abdominal pain: This is her second visit to ER with admission to the hospital for abdominal pain likely secondary to fecal impaction and constipation with stercoral colitis No intestinal obstruction in the scan We will try to avoid any narcotics for pain control Pain has been improving with bowel movement Abdominal pain is improved More bowel movements and without any more abdominal pain and/or distention (2) Constipation: Has been going on for a long time Has been on lactulose and other stool softener at home We will add stimulant agent Bowels moved following hospitalization and she has been feeling better Advised to drink more fluid We will give cautious amount of intravenous fluid Constipation is resolved and the patient wants to go home (3) UTI (urinary tract infection): Your examination is suggestive of infection and has been getting Zosyn for colitis and which will cover if there is any recurrent infection Await urine culture -E. coli and is pansensitive except Bactrim Will change to oral Keflex before discharging home this afternoon (4) Bipolar 1 disorder: Continue current medications No acute psychosis (5) CKD (chronic kidney disease) stage 4, GFR 15-29 ml/min: BUN and creatinine are up Likely secondary to dehydration Advised to drink more fluid We will give cautious amount of intravenous fluid-monitor PRP Creatinine has been up in spite of intravenous fluid She admits that she has not been drinking enough fluid for the last few days or so She wants to go home and does not want to try any more intravenous fluid She agrees to drink more fluid We will check her PRP at 2:00 and if there is no deterioration I will discharge her this afternoon (6) Diabetes type 2, controlled: Has been on SSI (7) Hypertension: Remains on the upper side Coreg 3.125 mg p.o. twice daily has been added for better control of blood pressure (8) Hypothyroidism: Continue supplement DVT prophylaxis We will give subcu heparin Advised to come out of bed on a chair We will get PT and OT evaluation-has been ambulating without any difficulty and does not want to wait for PT and OT evaluation Discharge this afternoon Total Time Total Time Spent Total Time Spent (In Minutes): 35 minutes Total Time Includes: Examination of the Patient, Discharge Planning, Medication Reconciliation and Communication With Other Providers Discharge Plan Discharge Items Patient Disposition: Home - Self-Care Reason For Visit: CONSTIPATION,ABDOMINAL PAIN Discharge Diagnosis: Abdominal pain likely secondary to constipation, UTI, CKD stage IV, type 2 diabetes, hypertension Condition on Discharge: Good Activity: Resume your previous activity Non-emergency contact: Primary Care Provider Call non-emergency contact if: you have any medication questions and your symptoms worsen Follow-up/Referrals: Usama Meadows MD [Primary Care Provider] - (Will call you tomorrow with an appointment within 7 days) Diet: Carb Consistent or DM2 Fluids: 1800ml (7 cups) Addtl Attending Provider Instructions: Please take precautions to avoid fall Try to drink more fluid as advised Take your blood pressure medications regularly and you may have to have it changed by your primary care physician Try to take a high fibre diet like more fresh fruits and vegetables You need to have a BMP test at your doctor's office within next 3 to 4 days Pending Studies at Discharge: No Stand-Alone Forms: [facility], Smoking Cessation Medications and DC Order Prescriptions: New cephalexin 250 mg Capsule 250 mg PO BID 5 Days Qty: 10 RF: 0 carvedilol 3.125 mg Tablet 3.125 mg PO BID 30 Days Qty: 60 RF: 0 Continued Lantus Solostar U-100 Insulin 100 unit/mL (3 mL) insulin pen 12 unit SUBCUT HS Qty: 15 RF: 5 (DME) OneTouch Ultra Blue Test Strip Strip See Rx Instructions .ROUTE .MEDSUPPLY Qty: 500 RF: 3 (DME) pen needle, diabetic [Unifine Pentips] 31 gauge x 5/16" needle See Rx Instructions .ROUTE .MEDSUPPLY Qty: 500 RF: 3 quetiapine 400 mg tablet 400 mg PO HS RF: 0 multivitamin tablet 1 tab PO DAILY RF: 0 atorvastatin 20 mg tablet 20 mg PO DAILY RF: 0 amlodipine 10 mg tablet 10 mg PO DAILY RF: 0 levothyroxine 112 mcg tablet 112 mcg PO QAM RF: 0 insulin aspart U-100 [Novolog Flexpen U-100 Insulin] 100 unit/mL (3 mL) insulin pen 40 unit SUBCUT DIRECTED RF: 0 senna 8.6 mg capsule 17.2 mg PO DAILY Qty: 60 RF: 0 Metamucil [facility] Fiber 3.4 gram/5.8 gram powder 2.5 g PO DAILY Qty: 660 RF: 0 pantoprazole 40 mg tablet,delayed release (DR/EC) 40 mg PO QAM RF: 0 polyethylene glycol 3350 [Miralax] 17 gram Powder In Packet 17 g PO DAILY Qty: 30 RF: 0 lactulose 10 gram/15 mL solution 30 ml PO BID Qty: 0 RF: 0 Discharge Orders: Discharge Order (Routine); Ordered 12/11/20 Ordered By: Simin Rogel/Other Patient Handouts: Managing Type 2 Diabetes, A1C Admission Data Admit Date/Time: 12/11/20 09:33 Attending Provider: Simin Braden Admit Provider: Nomi Lopez Primary Care Provider: Usama Meadows Other Providers: Nomi Lopez Other Interventions: Discharge Summary Assessment (RN) Last Done: 12/11/20 12:16
== END 2020-12-11 16:30 | disposition home or self-care (01) ==
LOC: 2N 20:34 → ED 20:34 → SUATTDRO 12-09 02:28 → 2N 12-09 04:15 → 3W 12-10 00:46

== ENCOUNTER 2020-12-27 15:27 | Inpatient (IN) ==
[2020-12-27] MEDS ORDERED: SODIUM CHLORIDE 0.9% 1000ML 1,000 ML IV STA (17:22)
--- NOTE | 2020-12-27 17:30 | Emergency Department Note ---
History of Present Illness General Chief complaint: Illness Time Seen by Provider: 12/27/20 17:08 Source: patient and other (Home health nurse came in with the patient) Mode of arrival: ambulatory Limitations: no limitations History of Present Illness Provider complaint: Constipation Maximum Pain Intensity: 5 80-year-old female presents to the ED with a chief complaint of " constipation problem". She comes in with her caregiver. She lives with her at home. The caregiver states that he is demented and has a 24-hour caregiver. The patient reports that she has had some off-and-on abdominal cramping and pain that she feels might be related to constipation. She has had some associated nausea but no vomiting. Denies any fevers. Her last bowel movement was yesterday. She has not been eating well but the caregiver states that she has been drinking Ensure. She has been weak and in bed for the past 4 days according to the caregiver. The patient has no additional complaints at this time. She denies any nausea at this time. Home Medications Medication Instructions Recorded Confirmed Type atorvastatin 20 mg tablet 20 mg PO HS 03/03/19 12/27/20 History levothyroxine 112 mcg PO DAILYBB 05/07/19 12/27/20 History quetiapine 400 mg tablet 400 mg PO HS 02/15/20 12/27/20 History amlodipine 10 mg PO DAILY 04/15/20 12/27/20 History Metamucil [facility] Fiber 2.5 g PO DAILY #660 g 05/15/20 12/27/20 Rx insulin aspart U-100 [Novolog 0 unit SUBCUT DIRECTED 05/15/20 12/27/20 History Flexpen U-100 Insulin] blood sugar diagnostic #500 ea 10/03/20 12/08/20 Rx pen needle, diabetic 31 gauge x #500 ea 10/03/20 12/08/20 Rx 5/16" carvedilol 3.125 mg PO BID 30 Days #60 tab 12/11/20 12/27/20 Rx Lantus Solostar U-100 Insulin 8 unit SUBCUT HS 12/27/20 12/27/20 History hydrocortisone acetate 25 mg WA BID PRN 12/27/20 12/27/20 History lactulose 30 ml PO QID 12/27/20 12/27/20 History linaclotide [Linzess] 72 mcg PO DAILYBB 12/27/20 12/27/20 History oxybutynin chloride 5 mg PO DAILY 12/27/20 12/27/20 History Allergies Allergy/AdvReac Type Severity Reaction Status Date / Time Iodinated Contrast Media Allergy Severe Anaphylaxis Verified 12/27/20 18:00 mold Allergy Unknown UNKNOWN Verified 12/27/20 18:00 pollen extracts Allergy Unknown UNKNOWN Verified 12/27/20 18:00 mushroom Allergy Unknown Verified 12/27/20 18:00 Past Med/Surg History Medical History Anemia of chronic disease Anxiety Bipolar 1 disorder CKD (chronic kidney disease) stage 4, GFR 15-29 ml/min Diabetes type 2, controlled Disc degeneration, lumbar Fracture of parietal bone of skull GERD (gastroesophageal reflux disease) Jonathan's thyroiditis Hemorrhage, subdural, traumatic HLD (hyperlipidemia) Hyperparathyroidism Hypertension Hypothyroidism IBS (irritable bowel syndrome) Irritable bowel syndrome with constipation Osteopenia Pacemaker Subarachnoid, subdural, and extradural hemorrhage, following injury Surgical History H/O lumpectomy History of total abdominal hysterectomy and bilateral salpingo-oophorectomy Hx of cholecystectomy Family History Sister Colorectal cancer Other Cancer Diabetes History of hysterectomy Hypertension Stroke Social History Smoking Status: Never smoker Second Hand Exposure: No; Hx Alcohol Use: No Hx Substance Use: No Preferred Language: Palauan Communication Ability: Effective Visual Impairment: No Limitations Hearing Ability: Normal Obiee [employer] Solution Architect Required: No Beliefs That Will Affect Care: None marital status: Current Living Situation: Spouse Current Living Situation Comment: home health Feels Safe at Home: Yes Assistive Devices: Walker Review of Systems A total of 10 systems reviewed and were otherwise negative Physical Exam Vital Signs Vital Signs - 24 hr 12/27/20 15:37 12/27/20 17:47 Temperature 37.0 C Temperature Source Oral Pulse Rate 67 Pulse Rate [Left Finger] 72 Pulse Rhythm Regular Pulse Strength Normal Respiratory Rate 20 20 Respiratory Effort / Characteristics Non-Labored Spontaneous Respiratory Depth Normal Respiratory Pattern Regular Blood Pressure 147/63 H Blood Pressure [Left Arm] 150/65 H Blood Pressure Mean 91 Blood Pressure Mean [Left Arm] 93 Blood Pressure Position Sitting Pulse Oximetry 93 98 Oxygen Delivery Method Room Air Sepsis Recent Fever Within 48 Hours No Sepsis New/Unexplained Change in Mental Status No Sepsis Action Taken by Nursing No Action Required CONSTITUTIONAL/VITAL SIGNS: Reviewed / noted above. GENERAL: Non-toxic in appearance. INTEGUMENTARY: Warm, dry, and [address]. HEAD: Normocephalic. EYES: without scleral icterus or trauma. ENT/OROPHARYNX: clear and moist. LYMPHADENOPATHY/NECK: Is supple without lymphadenopathy or meningismus. RESPIRATORY: Lungs clear and equal. CARDIOVASCULAR: Regular rate and rhythm. GI/ABDOMEN: Soft and mild diffuse tenderness. No organomegaly or pulsatile mass. No rebound or guarding. Normal bowel sounds. EXTREMITIES: Warm and well perfused. BACK: No CVA tenderness. NEUROLOGICAL: Intact without focal deficits. PSYCHIATRIC: normal affect. MUSCULOSKELETAL: Normally developed with good muscle tone. TRIAGE NURSING DOCUMENTATION REVIEWED. Course Administered Medications Discontinued Medications Sodium Chloride (Nss 1000ml) 1,000 mls @ 999 mls/hr IV .Q1H1M STA Stop: 12/27/20 18:22 Last Admin: 12/27/20 17:20 Dose: 999 mls/hr Documented by: [id number] Medical Decision Making Differential Diagnosis Differential considered: pancreatitis, hepatitis, acute cholecystitis, AAA, UTI, pyelonephritis, kidney stones, appendicitis, diverticulitis, shingles, bowel obstruction, mesenteric ischemia, intussusception,hernia. Medical Records Attestation: I reviewed the patient's medical records. Home Medications Current Medication List: was personally reviewed by me Laboratory Data Attestation: I reviewed the patient's lab results. Result diagrams: 12/27/20 18:20 12/27/20 18:20 Lab Results 12/27/20 12/27/20 12/27/20 Range/Units 18:20 18:20 18:20 WBC 6.43 (4.8-10.8) K/uL RBC 3.21 L (4.2-5.4) M/uL Hgb 9.5 L (12.0-16.0) g/dL Hct 28.1 L (37-47) % MCV 87.5 (80-100) fL MCH 29.6 (25-34) pg MCHC 33.8 (32-36) g/dL RDW Std Deviation 46.2 (36.4-46.3) fL RDW Coeff of Tim 14.5 (11.5-14.5) % Plt Count 217 (130-400) K/uL MPV 12.0 H (7.4-10.4) fL Immature Gran % (Auto) 0.5 % Neut % (Auto) 65.9 % Lymph % (Auto) 24.3 % Nelson % (Auto) 6.8 % Eos % (Auto) 2.3 % Baso % (Auto) 0.2 % Neut # (Auto) 4.24 (1.4-6.5) K/uL Lymph # (Auto) 1.56 (1.2-3.4) K/uL Nelson # (Auto) 0.44 (0.11-0.59) K/uL Eos # (Auto) 0.15 (0-0.5) K/uL Baso # (Auto) 0.01 (0-0.2) K/uL Immature Gran # (Auto) 0.03 H (0.00-0.02) K/uL Sodium 139 (136-145) mmol/L Potassium 3.9 (3.5-5.1) mmol/L Chloride 116 H (98-107) mmol/L Carbon Dioxide 10 L (21-32) mmol/L Anion Gap 12.0 H (3-11) BUN 69 H (7-18) mg/dl Creatinine 6.34 H* (0.6-1.2) mg/dl Est Cr Clr Drug Dosing 6.2 ml/min Est GFR ( Amer) 6.5 ml/min Est GFR (Non-Af Amer) 5.6 ml/min BUN/Creatinine Ratio 10.9 (10-20) Glucose 75 (70-99) mg/dl Calcium 8.5 (8.5-10.1) mg/dl Total Bilirubin 0.2 (0.2-1) mg/dl AST 19 (15-37) U/L ALT 10 L (12-78) U/L Alkaline Phosphatase 245 H (45-117) U/L Troponin I 0.022 (0-0.045) ng/ml Total Protein 6.8 (6.4-8.2) gm/dl Albumin 2.9 L (3.4-5.0) gm/dl Globulin 3.9 (2.5-4.0) gm/dl Albumin/Globulin Ratio 0.7 L (0.9-2) Lipase 86 (73-393) U/L Imaging Data Radiologist's Impression: Abdomen/Pelvis CT 12/27/20 17:22 CT SCAN OF THE ABDOMEN AND PELVIS WITHOUT CONTRAST CLINICAL HISTORY: abd pain, diffuse COMPARISON STUDY: 12/08/2020 TECHNIQUE: CT scan of the abdomen and pelvis was performed from the lung bases to the proximal femurs. Images are reviewed in the axial, sagittal, and coronal planes. IV contrast was not administered for this examination. A dose lowering technique was utilized adhering to the principles of ALARA. CT DOSE: 327.65 mGy.cm FINDINGS: Lower chest: There are trace pleural effusions. There are dependent opacities, likely atelectatic Liver: The unenhanced liver is normal in size, contour, and attenuation. There is no intrahepatic biliary ductal dilatation. Gallbladder: Surgically absent Spleen: Normal in size and attenuation. Pancreas: Unremarkable. Adrenal glands: Unremarkable. Kidneys: There are multiple bilateral hypodense renal masses, statistically representing cysts. There are extensive left renal artery calcifications. Bowel: There is gaseous prominence of the colon to the level of the distal descending colon. There is moderate colonic stool within the right and transverse colon. Given the findings in the prior study, an ileus is favored over a bowel obstruction. There is no evidence of acute appendicitis. There is no evidence of acute diverticulitis Peritoneum: There is no intraperitoneal free air or abdominal ascites. Vasculature: The abdominal aorta is normal in course and caliber. Adenopathy: None. Pelvic viscera: The uterus is surgically absent. The bladder is mildly distended with mild wall thickening. Skeletal structures: There is an old superior endplate T12 compression fracture IMPRESSION: 1. Mildly distended colon down to the level of the distal descending colon. No discrete obstructing mass is visualized, clinical follow-up recommended 2. Moderate stool within the right and transverse colon 3. No evidence of acute appendicitis. No evidence of acute diverticulitis. 4. Mild bladder distention and mild bladder wall thickening. Interval resolution of the emphysematous cystitis visualized the prior study 5. Bilateral renal masses likely represents cysts 6. Dense calcification left renal artery 7. Examination limited by the lack of intravenous and oral contrast ACT 112: Negative or not required by law. Electronically signed by: Flaco Briggs M.D. 12/27/2020 6:21 PM Chest X-Ray 12/27/20 17:24 XR chest 1V portable CLINICAL HISTORY: weakness COMPARISON STUDY: 05/30/2020 FINDINGS: The cardiac and mediastinal contours remain stable. There is no failure. There is no focal pulmonary consolidation. There are no pleural effusions. There is aortic tortuosity with aortic knob calcification. There is a right subclavian dual-chamber central venous pacemaker.[There is gaseous distention of the visualized upper abdominal bowel. IMPRESSION: No active disease in the chest. ACT 112: Negative or not required by law. Electronically signed by: Flaco Briggs M.D. 12/27/2020 5:55 PM MDM Narrative Patient presents to the ED with a chief complaint of some intermittent abdominal discomfort and concerns with regards to constipation. Details above. Patient exam was relatively benign with a mildly tender abdomen diffusely. Her vital signs are stable. The patient's hemoglobin is 9.5. The BUN is 69 and the creatinine is 6.3. Baseline creatinine is 2.9. Alkaline phosphatase 245. Troponin was negative and a chest x-ray was negative for acute disease. A CT scan of the abdomen pelvis shows moderate stool within the right and transverse colon. The patient was given a liter normal saline IV during her ED stay. Her vital signs are stable. She will require further inpatient evaluation and care. The POA for the patient is Dr. Raymond Houser [phone] The patient's home care providers are adult transitional care and their number is [phone] Impression & Plan Acute dehydration, Acute renal failure Discharge Plan Visit Data Chief Complaint: Illness ED Provider: Jayy Langley Discharge Problem: Acute dehydration, Acute renal failure Patient Disposition: Being Evaluated by Hospitalist Forms Stand Alone Forms: [facility], Virtual Emergency Department, Important Visit Information Prescriptions Prescriptions: No Action (DME) OneTouch Ultra Blue Test Strip Strip See Rx Instructions .ROUTE .MEDSUPPLY Qty: 500 RF: 3 (DME) pen needle, diabetic [Unifine Pentips] 31 gauge x 5/16" needle See Rx Instructions .ROUTE .MEDSUPPLY Qty: 500 RF: 3 quetiapine 400 mg tablet 400 mg PO HS RF: 0 atorvastatin 20 mg tablet 20 mg PO HS RF: 0 amlodipine 10 mg tablet 10 mg PO DAILY RF: 0 levothyroxine 112 mcg tablet 112 mcg PO DAILYBB RF: 0 insulin aspart U-100 [Novolog Flexpen U-100 Insulin] 100 unit/mL (3 mL) insulin pen 0 unit SUBCUT DIRECTED RF: 0 Metamucil [facility] Fiber 3.4 gram/5.8 gram powder 2.5 g PO DAILY Qty: 660 RF: 0 hydrocortisone acetate 25 mg Suppository 25 mg WA BID PRN (Reason: Hemorrhoids) RF: 0 oxybutynin chloride 5 mg tablet extended release 24hr 5 mg PO DAILY RF: 0 Linzess 72 mcg capsule 72 mcg PO DAILYBB RF: 0 lactulose 10 gram/15 mL solution 30 ml PO QID RF: 0 Lantus Solostar U-100 Insulin 100 unit/mL (3 mL) insulin pen 8 unit SUBCUT HS RF: 0 carvedilol 3.125 mg Tablet 3.125 mg PO BID 30 Days Qty: 60 RF: 0 Referrals Referrals: Usama Meadows MD [Primary Care Provider] -
--- NOTE | 2020-12-27 17:56 | XRay Report ---
XR chest 1V portable CLINICAL HISTORY: weakness COMPARISON STUDY: 05/30/2020 FINDINGS: The cardiac and mediastinal contours remain stable. There is no failure. There is no focal pulmonary consolidation. There are no pleural effusions. There is aortic tortuosity with aortic knob calcification. There is a right subclavian dual-chamber central venous pacemaker.[There is gaseous di stention of the visualized upper abdominal bowel. IMPRESSION: No active disease in the chest. ACT 112: Negative or not required by law. Electronically signed by: Flaco Briggs M.D. 12/27/2020 5:55 PM
--- NOTE | 2020-12-27 18:22 | CT Scan Report ---
CT SCAN OF THE ABDOMEN AND PELVIS WITHOUT CONTRAST CLINICAL HISTORY: abd pain, diffuse COMPARISON STUDY: 12/08/2020 TECHNIQUE: CT scan of the abdomen and pelvis was performed from the lung bases to the proximal femurs . Images are reviewed in the axial, sagittal, and coronal planes. IV contrast was not administered fo r this examination. A dose lowering technique was utilized adhering to the principles of ALARA. CT DOSE: 327.65 mGy.cm FINDINGS: Lower chest: There are trace pleural effusions. There are dependent opacities, likely atelectatic Liver: The unenhanced liver is normal in size, contour, and attenuation. There is no intrahepatic lio iary ductal dilatation. Gallbladder: Surgically absent Spleen: Normal in size and attenuation. Pancreas: Unremarkable. Adrenal glands: Unremarkable. Kidneys: There are multiple bilateral hypodense renal masses, statistically representing cysts. There are extensive left renal artery calcifications. Bowel: There is gaseous prominence of the colon to the level of the distal descending colon. There is moderate colonic stool within the right and transverse colon. Given the findings in the prior study, an ileus is favored over a bowel obstruction. There is no evidence of acute appendicitis. There is n o evidence of acute diverticulitis Peritoneum: There is no intraperitoneal free air or abdominal ascites. Vasculature: The abdominal aorta is normal in course and caliber. Adenopathy: None. Pelvic viscera: The uterus is surgically absent. The bladder is mildly distended with mild wall thick ening. Skeletal structures: There is an old superior endplate T12 compression fracture IMPRESSION: 1. Mildly distended colon down to the level of the distal descending colon. No discrete obstructing m ass is visualized, clinical follow-up recommended 2. Moderate stool within the right and transverse colon 3. No evidence of acute appendicitis. No evidence of acute diverticulitis. 4. Mild bladder distention and mild bladder wall thickening. Interval resolution of the emphysematous cystitis visualized the prior study 5. Bilateral renal masses likely represents cysts 6. Dense calcification left renal artery 7. Examination limited by the lack of intravenous and oral contrast ACT 112: Negative or not required by law. Electronically signed by: Flaco Briggs M.D. 12/27/2020 6:21 PM
[2020-12-27 18:35] LABS: Basophils # (auto) 0.01 K/uL (0-0.2); Basophils % (auto) 0.2 %; Eosinophils # (auto) 0.15 K/uL (0-0.5); Eosinophils % (auto) 2.3 %; Hematocrit (blood only) 28.1 % (37-47); Hemoglobin 9.5 g/dL (12.0-16.0); Immature Granulocytes # (auto) 0.03 K/uL (0.00-0.02); Immature Granulocytes % (auto) 0.5 %; Lymphocytes # (auto) 1.56 K/uL (1.2-3.4); Lymphocytes % (auto) 24.3 %; Mean Corpuscular Hemoglobin 29.6 pg (25-34); Mean Corpuscular Hgb Conc 33.8 g/dL (32-36); Mean Corpuscular Volume 87.5 fL (80-100); Monocytes # (auto) 0.44 K/uL (0.11-0.59); Monocytes % (auto) 6.8 %; Neutrophils # (auto) 4.24 K/uL (1.4-6.5); Neutrophils % (auto) 65.9 %; Platelet Count 217 K/uL (130-400); RDW Coefficient of Variation 14.5 % (11.5-14.5); RDW Standard Deviation 46.2 fL (36.4-46.3); Red Blood Count 3.21 M/uL (4.2-5.4); White Blood Count 6.43 K/uL (4.8-10.8)
[2020-12-27 19:16] LABS: Albumin Globulin Ratio 0.7 (0.9-2); Albumin Level 2.9 gm/dl (3.4-5.0); BUN Creatinine Ratio 10.9 (10-20); Bilirubin,Total 0.2 mg/dl (0.2-1); Calcium 8.5 mg/dl (8.5-10.1); Creatinine Clr Calc Pharmacy 6.2 ml/min; Est GFR (African American) 6.5 ml/min; Est GFR (Non-African American) 5.6 ml/min; Globulin 3.9 gm/dl (2.5-4.0); Potassium 3.9 mmol/L (3.5-5.1); Total Protein 6.8 gm/dl (6.4-8.2)
[2020-12-27 19:24] LABS: Appearance Urine Turbid (Clear); Bacteria Urine Automated 2+ (Negative); Bilirubin Urine Negative (Negative); Blood Urine 1+ (Negative); Color Urine Yellow; Glucose Urine UA Negative (Negative); Ketones Urine Negative (Negative); Leukocyte Esterase Urine 3+ (Negative); Nitrite Urine Negative (Negative); Protein Urine 2+ (Negative); RBC Urine Automated 0-4 /hpf (0-4); Urobilinogen Urine Negative (Negative); WBC Urine Automated >30 /hpf (0-5); pH Urine 5.5 (4.5-7.5)
[2020-12-27 21:08] LABS: Phosphorus 6.3 mg/dl (2.5-4.9)
--- NOTE | 2020-12-28 00:17 | History and Physical Report ---
DATE OF ADMISSION: 12/27/2020. CHIEF COMPLAINT: YEVGENIY. HISTORY OF PRESENT ILLNESS: This is an 80-year-old female with past medical history significant for type 2 diabetes, chronic kidney disease stage IV, hyperparathyroidism secondary to renal disease, hyperlipidemia, hypothyroidism, hypertension, chronic constipation, vitamin D deficiency, GERD, overactive bladder, anemia of chronic kidney disease, iron deficiency anemia, bipolar disorder, personal history of malignant neoplasm of breast, status post cardiac pacemaker, history of duodenal ulcer, who lives with her who has dementia. She has caregivers at home. She has chronic constipation and mental illness. The patient was recently admitted for abdominal pain and constipation, and received stool softener and also enema and she did fine. She was getting Zosyn for colitis and for E. coli and discharged on Keflex. At baseline, creatinine was 2.4 and at the time of discharge, her creatinine was 2.9, repeat was 2.9 and she was discharged home. She also had followup with PCP. As per the PCP note, she has ongoing constipation, mental illness, and they have to frequently do welfare checks at home, but today caregiver brought her to the hospital because she seemed to be not getting up from the bed for the last 4 days. She has on and off some abdominal cramping and constipation. She says she moved her bowels yesterday. As per the ER note, she has not been eating well and she has been only drinking Ensure. The patient is speaking in low voices, alert and oriented. Her speech seems somewhat pressured, but states she has a very dry mouth. Denies any headache or blurred visions. No runny nose, no sore throat, no cough, no fever, feeling cold. No chest pain, no shortness of breath, no nausea. She says she is not making much urine. No swelling in the legs, hemodynamically stable, but her labs showed creatinine of 6.3, CO2 of 10, potassium 3.9, sodium 139. Her urine was positive. SARS-CoV-[address] of the abdomen and pelvis is showing mildly distended colon to the level of distal descending colon. No discrete obstructing masses visualized. Moderate stool with in right and transverse colon. No evidence of diverticulitis. CT of the head, preliminary report is okay. ALLERGIES: IODINATED CONTRAST MEDIA, MOLD, POLLEN EXTRACTS, MUSHROOM. PAST MEDICAL HISTORY: As mentioned above. PAST SURGICAL HISTORY: Breast lesion excision, hysterectomy, cholecystectomy, vitrectomy with removal of epiretinal membrane, lasering of secondary cataract, removal of cataract, drainage of breast cyst. MEDICATIONS: The patient is on amlodipine 10 mg p.o. daily, atorvastatin 20 mg p.o. daily, Coreg 3.125 mg p.o. b.i.d., hydrocortisone 25 mg per rectal b.i.d. p.r.n., insulin sliding scale, lactulose 30 mL p.o. q.i.d., Lantus 18 units subcutaneous at bedtime, levothyroxine 112 mcg p.o. daily, Linzess 72 mcg p.o. daily, Metamucil 2.5 g p.o. daily, oxybutynin 5 mg p.o. daily, Seroquel 400 mg p.o. at bedtime. FAMILY HISTORY: Significant for sister has cancer, diabetes; father had stroke, hypertension, eye problems, diabetes; mother has hypertension. SOCIAL HISTORY: , lives with her . No smoking, no alcohol, no drug use. REVIEW OF SYSTEMS: As per HPI. Rest of review of systems negative. PHYSICAL EXAMINATION: GENERAL: The patient is old and frail, not in acute distress . VITAL SIGNS: Temperature 37, pulse 67, respiratory rate 26, blood pressure 135/54, oxygen 97% on room air. HEENT: Pupils equal, round and reactive to light. Oral mucosa dry. NECK: No JVD, no neck masses. CARDIOVASCULAR: S1 and S2 heard. Regular rate and rhythm. No murmur, no gallop. RESPIRATORY SYSTEM: Normal AP diameter. No accessory muscle use. No wheezing, no crackles. ABDOMEN: Soft, bowel sounds present, nontender, no distention. CENTRAL NERVOUS SYSTEM: Alert and oriented x3, but speech is somewhat slow and somewhat pressured. Power 5/5 in all extremities. Sensation is intact. No pronator drift. EXTREMITIES: No edema, no erythema. LABORATORY DATA: WBC 6.4, hemoglobin 9.5, hematocrit 28.1, platelets 217. Sodium 139, potassium 3.9, chloride 116, bicarbonate 10, BUN 69, creatinine 6.3, serum glucose 75, calcium 8.5, phosphorus 6.3, total bilirubin 0.2, AST 19, ALT 10, alkaline phosphatase 245. Total creatinine kinase 150. Troponin 1 of 0.02, total protein 6.8, lipase 86. Urinalysis positive for leukocyte esterase and +2 bacteria. SARS-CoV-2 PCR negative. IMAGING DATA: CT of the head, preliminary report unremarkable. Chest x-ray, no acute disease in the chest. CT of the abdomen and pelvis is showing mildly distended colon down to the level of the distal descending colon. No discrete obstructing masses visualized. Moderate stool within the right and transverse colon, but no evidence of acute appendicitis, no evidence of acute diverticulitis. Mild bladder distention, mild bladder wall thickening. Interval resolution of the emphysematous cystitis visualized in the prior study. Bilateral adrenal masses, likely representing cyst, dense calcification of the left renal artery. EKG: Atrial paced rhythm at a rate of 64. ASSESSMENT AND PLAN: This is an 80-year-old female who presents with somewhat lethargy and found to have acute kidney injury. 1. Acute kidney injury on chronic kidney disease stage IV: Metabolic acidosis secondary to above. CT of the abdomen, except for some constipation and distended colon, nothing significant. Phosphorus was 6.3. Starting on bicarb drip at 80 mL per hour with potassium supplements and will follow the repeat labs in a.m. CK is okay. Nephrology consulted. Closely monitor in the tele floor. The patient seems to be not eating or drinking much at home. Could be prerenal. 2. Questionable some pressured speech: The patient was not getting out of the bed for the last 4 days, but alert and oriented and otherwise exam is okay. CT of the head is okay. If any concerns, will get MRI of the head. 3. Chronic constipation: Continue her home stool softeners. CAT scan is showing chronic moderate constipation and some colon distention. We will consult GI in the a.m. We are holding Linzess for now. 4. Urinary tract infection: Starting on Rocephin. Follow the cultures. 5. Bipolar disorder: Continue home medication. Could be contributing to her ongoing illness. 6. Diabetes: Will hold her home Lantus. We will place her on insulin sliding scale. Monitor the blood sugars while the patient is getting her dextrose in the bicarbonate drip. 7. Hypertension: Continue her home medication of amlodipine and Coreg. We will monitor the blood pressure. 8. Hyperlipidemia: Continue statin. 9. Hypothyroidism: Continue Synthroid. 10. Deep venous thrombosis prophylaxis: Will place on heparin subcutaneous. DISPOSITION: Closely monitor in tele floor. Level 1 full code. Expect to discharge home and follow with family doctor. Job ID: [id number] [facility] SYSTEMAlvino
[2020-12-28] MEDS ORDERED: NITROGLYCERIN SL 0.4 MG/TAB TAB SL PRN (04:59)
[2020-12-28] MEDS ORDERED: ONDANSETRON INJ 2 MG/ML 2 ML VIAL IV PRN (04:59)
[2020-12-28] MEDS ORDERED: GLUCOSE 10 TABS/TUBE PO PRN (05:15)
[2020-12-28] MEDS ORDERED: GLUCOSE 40% GEL 15 GM TUBE PO PRN (05:15)
[2020-12-28] MEDS ORDERED: CARBOHYDRATES FOR HYPOGLYCEMIA PO PRN (05:15)
[2020-12-28] MEDS ORDERED: GLUCAGON FOR INJ 1 MG VIAL IM PRN (05:15)
[2020-12-28] MEDS ORDERED: DEXTROSE 50% 50 ML SYRINGE IV PRN (05:15)
[2020-12-28 05:40] LABS: Basophils # (auto) 0.03 K/uL (0-0.2); Basophils % (auto) 0.4 %; Eosinophils % (auto) 1.4 %; Hematocrit (blood only) 33.2 % (37-47); Hemoglobin 10.7 g/dL (12.0-16.0); Immature Granulocytes # (auto) 0.04 K/uL (0.00-0.02); Immature Granulocytes % (auto) 0.6 %; Lymphocytes # (auto) 1.17 K/uL (1.2-3.4); Lymphocytes % (auto) 16.3 %; Mean Corpuscular Hemoglobin 30.1 pg (25-34); Mean Corpuscular Hgb Conc 32.2 g/dL (32-36); Mean Corpuscular Volume 93.5 fL (80-100); Monocytes # (auto) 0.21 K/uL (0.11-0.59); Monocytes % (auto) 2.9 %; Neutrophils # (auto) 5.62 K/uL (1.4-6.5); Neutrophils % (auto) 78.4 %; Platelet Count 214 K/uL (130-400); RDW Coefficient of Variation 14.7 % (11.5-14.5); RDW Standard Deviation 50.2 fL (36.4-46.3); Red Blood Count 3.55 M/uL (4.2-5.4); White Blood Count 7.17 K/uL (4.8-10.8)
[2020-12-28] MEDS ORDERED: [UNRECOGNIZED DRUG - OTHER] IV SCH (06:00)
[2020-12-28] MEDS ORDERED: SODIUM BICARBONATE IV SCH (06:00)
[2020-12-28] MEDS ORDERED: D5W IV SCH (06:00)
[2020-12-28] MEDS ORDERED: POTASSIUM CHLORIDE IV SCH (06:00)
[2020-12-28 07:03] LABS: Estimated Average Glucose 163 mg/dl; Hemoglobin A1C 7.3 % (4.5-5.6)
--- NOTE | 2020-12-28 07:23 | CT Scan Report ---
HEAD CT NONCONTRAST CT DOSE: 537.48 mGy.cm HISTORY: pressured speech? TECHNIQUE: Multiaxial CT images of the head were performed without the use of intravenous contrast. A utomated exposure control was utilized for this study. A dose lowering technique was utilized adheri ng to the principles of ALARA. Comparison: Head CT 04/15/2020. Findings: The paranasal sinuses and mastoid air cells are clear. The calvarium and skull base are int act. There is no mass, hematoma, midline shift, acute infarct. White matter hypodensity is nonspecifi c but suggestive of microvascular ischemic change. The ventricles and sulci demonstrate mild age-rela alvaro involutional changes. Impression: No significant change compared to the prior study. No acute intracranial abnormality. ACT 112: Negative or not required by law. Electronically signed by: Luciano Gonzalez M.D. 12/28/2020 7:21 AM
[2020-12-28] MEDS: carvediloL 3.125 MG TAB PO SCH ×3 (07:34→20:30)
[2020-12-28] MEDS: LACTULOSE SYRUP 20 GM/30 ML UDC PO SCH ×5 (07:35→20:31)
[2020-12-28] MEDS: INSULIN ASPART 100 UNITS/ML 3 ML PEN SC SCH ×4 (07:46→20:32)
[2020-12-28] MEDS: LEVOTHYROXINE SODIUM 112 MCG TABLET PO SCH ×2 (07:50→10:16)
[2020-12-28] MEDS: QUEtiapine FUMARATE 200 MG TAB PO SCH ×2 (07:51→20:30)
[2020-12-28] MEDS: ATORVASTATIN 20 MG TAB PO SCH ×2 (07:52→20:31)
[2020-12-28] MEDS: cefTRIAXone SODIUM 1,000 MG in DEXTROSE 5% 50 ML IV SCH (07:56)
[2020-12-28] MEDS: HEPARIN SOD 5,000 UNIT/0.5 ML VIAL SQ SCH ×2 (08:49→18:03)
[2020-12-28] MEDS: amLODIPine BESYLATE 5 MG TAB PO SCH (08:49)
[2020-12-28 09:07] LABS: BUN Creatinine Ratio 11.9 (10-20); Calcium 8.5 mg/dl (8.5-10.1); Creatinine Clr Calc Pharmacy 6.2 ml/min; Est GFR (African American) 6.5 ml/min; Est GFR (Non-African American) 5.6 ml/min; Magnesium 2.4 mg/dl (1.8-2.4); Potassium 4.2 mmol/L (3.5-5.1)
--- NOTE | 2020-12-28 09:13 | Gastrointestinal Consultation ---
Date of Consultation December 28, 2020 Assessment & Plan (1) Constipation: 80 year old female with chronic comorbidities admitted through the ED with YEVGENIY - GI asked to evaluate for constipation, imaging w mildly distended colon down to the level of the distal descending colon w/o discrete obstructing mass, moderate stool within the right and transverse colon. Electrolytes and YEVGENIY management per primary service Would start tap water enema TID for 2 days Would use 1/2 dose of Golytely given YEVGENIY this admission KUB in the AM Thank you for allowing us to participate in the care of this patient. Please call with any acute changes, questions or concerns. Please see addendum below with additional recommendation from my supervising physician. Supervising Physician Co-Signing Physician Notes Chronic constipation with findings on imaging of stool burden. PE - elderly female in nad, HEENT - perrla, sleeping on today's exam, Abd - soft nt nd Given yevgeniy, would continue with tap water enemas and golytely. History of Present Illness Reason for Consultation: constipation Requesting Physician: Emily Attending Physician: Regino Diaz, History of Present Illness 80 year old female with history of type 2 diabetes, chronic kidney disease stage IV, hyperparathyroidism secondary to renal disease, hyperlipidemia, hypothyroidism, hypertension, chronic constipation, vitamin D deficiency, GERD, overactive bladder, anemia of chronic kidney disease, iron deficiency anemia, bipolar disorder, personal history of malignant neoplasm of breast, status post cardiac pacemaker admitted through the ED w/ abnormal labs, YEVGENIY. GI asked to evaluate for chronic constipation. Pt notes long history of constipation, unable to tell me which specific medications she takes at home for constipation but notes this does not work well. Suggests she is feeling full, bloated and distended. No nausea, vomiting. Last BM was week ago. Denies black or bloody stools. CTAP 2020: Mildly distended colon down to the level of the distal descending colon. No discrete obstructing mass is visualized, clinical follow-up recommended. Moderate stool within the right and transverse colon. No evidence of acute appendicitis. No evidence of acute diverticuliti Allergies Allergy/AdvReac Type Severity Reaction Status Date / Time Iodinated Contrast Media Allergy Severe Anaphylaxis Verified 12/27/20 18:00 mold Allergy Unknown UNKNOWN Verified 12/27/20 18:00 pollen extracts Allergy Unknown UNKNOWN Verified 12/27/20 18:00 mushroom Allergy Unknown Verified 12/27/20 18:00 Home Medications Medication Instructions Recorded Confirmed Type atorvastatin 20 mg tablet 20 mg PO HS 03/03/19 12/27/20 History levothyroxine 112 mcg tablet 112 mcg PO DAILYBB 05/07/19 12/27/20 History quetiapine 400 mg tablet 400 mg PO HS 02/15/20 12/27/20 History amlodipine 10 mg tablet 10 mg PO DAILY 04/15/20 12/27/20 History insulin aspart U-100 100 unit/mL 0 unit SUBCUT DIRECTED 05/15/20 12/27/20 History (3 mL) subcutaneous pen (Novolog Flexpen U-100 Insulin aspart) psyllium husk (aspartame) 3.4 2.5 g PO DAILY #660 g 05/15/20 12/27/20 Rx gram/5.8 gram oral powder (Metamucil [facility] Fiber) blood sugar diagnostic (OneTouch #500 ea 10/03/20 12/08/20 Rx Ultra Blue Test Strip) pen needle, diabetic 31 gauge x #500 ea 10/03/20 12/08/20 Rx 5/16" (Unifine Pentips) carvedilol 3.125 mg tablet 3.125 mg PO BID 30 Days #60 tab 12/11/20 12/27/20 Rx hydrocortisone acetate 25 mg 25 mg TN BID PRN 12/27/20 12/27/20 History rectal suppository insulin glargine 100 unit/mL (3 8 unit SUBCUT HS 12/27/20 12/27/20 History mL) subcutaneous pen (Lantus Solostar U-100 Insulin) lactulose 10 gram/15 mL oral 30 ml PO QID 12/27/20 12/27/20 History solution linaclotide 72 mcg capsule 72 mcg PO DAILYBB 12/27/20 12/27/20 History (Linzess) oxybutynin chloride 5 mg 5 mg PO DAILY 12/27/20 12/27/20 History tablet,extended release 24 hr Patient History Medical History Anemia of chronic disease Anxiety Bipolar 1 disorder CKD (chronic kidney disease) stage 4, GFR 15-29 ml/min Diabetes type 2, controlled Disc degeneration, lumbar Fracture of parietal bone of skull GERD (gastroesophageal reflux disease) Jonathan's thyroiditis Hemorrhage, subdural, traumatic HLD (hyperlipidemia) Hyperparathyroidism Hypertension Hypothyroidism IBS (irritable bowel syndrome) Irritable bowel syndrome with constipation Osteopenia Pacemaker Subarachnoid, subdural, and extradural hemorrhage, following injury Surgical History H/O lumpectomy History of total abdominal hysterectomy and bilateral salpingo-oophorectomy Hx of cholecystectomy Family History Sister Colorectal cancer Other Cancer Diabetes History of hysterectomy Hypertension Stroke Social History Smoking Status: Never smoker Second Hand Exposure: No; Hx Alcohol Use: No Hx Substance Use: No Preferred Language: Slovak Communication Ability: Effective Visual Impairment: No Limitations Hearing Ability: Normal Terminologist Required: No Beliefs That Will Affect Care: None marital status: Current Living Situation: Spouse Current Living Situation Comment: home health Feels Safe at Home: Yes Assistive Devices: Walker Review of Systems Review of Systems: All systems reviewed & are unremarkable except as noted in HPI & below Physical Exam Constitutional: WD/WN, vitals as above Eyes: PERRL, conjunctivae normal, anicteric sclerae Respiratory: normal respiratory effort, lungs clear to auscultation Cardiovascular: RRR, no murmur, no edema Gastrointestinal (Abdomen): normal bowel sounds, soft, nontender, no hepatosplenomegaly Skin: no rashes, warm and dry Results & Data ([facility]) Vital Signs (Past 12 Hours) Vital Signs Pulse Pulse Resp BP BP Pulse Ox 12/28/20 05:21 62 15 149/54 H 100 12/28/20 04:54 60 12/28/20 00:00 64 18 150/63 H 12/27/20 23:30 60 14 142/60 H 12/27/20 23:00 64 20 150/57 H 12/27/20 22:30 60 20 134/80 100 12/27/20 22:00 60 11 L 135/54 L 98 12/27/20 21:36 67 26 H 135/54 L 97 Laboratory Results 12/28/20 12/28/20 12/28/20 Range/Units 08:22 07:16 05:07 WBC (4.8-10.8) K/uL RBC (4.2-5.4) M/uL Hgb (12.0-16.0) g/dL Hct (37-47) % MCV (80-100) fL MCH (25-34) pg MCHC (32-36) g/dL RDW Std Deviation (36.4-46.3) fL RDW Coeff of Tim (11.5-14.5) % Plt Count (130-400) K/uL MPV (7.4-10.4) fL Immature Gran % (Auto) % Neut % (Auto) % Lymph % (Auto) % [place] % (Auto) % Eos % (Auto) % Baso % (Auto) % Neut # (Auto) (1.4-6.5) K/uL Lymph # (Auto) (1.2-3.4) K/uL [place] # (Auto) (0.11-0.59) K/uL Eos # (Auto) (0-0.5) K/uL Baso # (Auto) (0-0.2) K/uL Immature Gran # (Auto) (0.00-0.02) K/uL Sodium 136 Cancelled (136-145) mmol/L Potassium 4.2 Cancelled (3.5-5.1) mmol/L Chloride 114 H Cancelled (98-107) mmol/L Carbon Dioxide 10 L Cancelled (21-32) mmol/L Anion Gap 13.0 H Cancelled (3-11) BUN 76 H Cancelled (7-18) mg/dl Creatinine 6.34 H* Cancelled (0.6-1.2) mg/dl Est Cr Clr Drug Dosing 6.2 Cancelled ml/min Est GFR ( Amer) 6.5 Cancelled ml/min Est GFR (Non-Af Amer) 5.6 Cancelled ml/min BUN/Creatinine Ratio 11.9 Cancelled (10-20) Glucose 237 H Cancelled (70-99) mg/dl POC Glucose 210 H (70-99) mg/dl Estimat Average Glucose mg/dl Hemoglobin A1c (4.5-5.6) % Calcium 8.5 Cancelled (8.5-10.1) mg/dl Phosphorus (2.5-4.9) mg/dl Magnesium 2.4 Cancelled Total Bilirubin (0.2-1) mg/dl AST (15-37) U/L ALT (12-78) U/L Alkaline Phosphatase (45-117) U/L Total Creatine Kinase (26-192) U/L Troponin I (0-0.045) ng/ml Total Protein (6.4-8.2) gm/dl Albumin (3.4-5.0) gm/dl Globulin (2.5-4.0) gm/dl Albumin/Globulin Ratio (0.9-2) Lipase (73-393) U/L Urine Color Urine Appearance (Clear) Urine pH (4.5-7.5) Ur Specific [place] (1.000-1.030) Urine Protein (Negative) Urine Glucose (UA) (Negative) Urine Ketones (Negative) Urine Blood (Negative) Urine Nitrite (Negative) Urine Bilirubin (Negative) Urine Urobilinogen (Negative) Ur Leukocyte Esterase (Negative) Urine WBC (Auto) (0-5) /hpf Urine RBC (Auto) (0-4) /hpf U Hyaline Cast (Auto) (0-5) /lpf U Epithel Cells (Auto) (0-5) /lpf Urine Bacteria (Auto) (Negative) COVID-19 Eval Order SARS-CoV-2 (PCR) (Negative) 12/28/20 12/27/20 12/27/20 Range/Units 05:07 20:00 20:00 WBC 7.17 (4.8-10.8) K/uL RBC 3.55 L (4.2-5.4) M/uL Hgb 10.7 L (12.0-16.0) g/dL Hct 33.2 L (37-47) % MCV 93.5 D (80-100) fL MCH 30.1 (25-34) pg MCHC 32.2 (32-36) g/dL RDW Std Deviation 50.2 H (36.4-46.3) fL RDW Coeff of Tim 14.7 H (11.5-14.5) % Plt Count 214 (130-400) K/uL MPV 12.0 H (7.4-10.4) fL Immature Gran % (Auto) 0.6 % Neut % (Auto) 78.4 % Lymph % (Auto) 16.3 % [place] % (Auto) 2.9 % Eos % (Auto) 1.4 % Baso % (Auto) 0.4 % Neut # (Auto) 5.62 (1.4-6.5) K/uL Lymph # (Auto) 1.17 L (1.2-3.4) K/uL [place] # (Auto) 0.21 (0.11-0.59) K/uL Eos # (Auto) 0.10 (0-0.5) K/uL Baso # (Auto) 0.03 (0-0.2) K/uL Immature Gran # (Auto) 0.04 H (0.00-0.02) K/uL Sodium (136-145) mmol/L Potassium (3.5-5.1) mmol/L Chloride (98-107) mmol/L Carbon Dioxide (21-32) mmol/L Anion Gap (3-11) BUN (7-18) mg/dl Creatinine (0.6-1.2) mg/dl Est Cr Clr Drug Dosing ml/min Est GFR ( Amer) ml/min Est GFR (Non-Af Amer) ml/min BUN/Creatinine Ratio (10-20) Glucose (70-99) mg/dl POC Glucose (70-99) mg/dl Estimat Average Glucose mg/dl Hemoglobin A1c (4.5-5.6) % Calcium (8.5-10.1) mg/dl Phosphorus (2.5-4.9) mg/dl Magnesium Total Bilirubin (0.2-1) mg/dl AST (15-37) U/L ALT (12-78) U/L Alkaline Phosphatase (45-117) U/L Total Creatine Kinase (26-192) U/L Troponin I (0-0.045) ng/ml Total Protein (6.4-8.2) gm/dl Albumin (3.4-5.0) gm/dl Globulin (2.5-4.0) gm/dl Albumin/Globulin Ratio (0.9-2) Lipase (73-393) U/L Urine Color Urine Appearance (Clear) Urine pH (4.5-7.5) Ur Specific [place] (1.000-1.030) Urine Protein (Negative) Urine Glucose (UA) (Negative) Urine Ketones (Negative) Urine Blood (Negative) Urine Nitrite (Negative) Urine Bilirubin (Negative) Urine Urobilinogen (Negative) Ur Leukocyte Esterase (Negative) Urine WBC (Auto) (0-5) /hpf Urine RBC (Auto) (0-4) /hpf U Hyaline Cast (Auto) (0-5) /lpf U Epithel Cells (Auto) (0-5) /lpf Urine Bacteria (Auto) (Negative) COVID-19 Eval Order Covid19 at [facility] SARS-CoV-2 (PCR) NEGATIVE (Negative) 12/27/20 12/27/20 12/27/20 Range/Units 19:10 18:20 18:20 WBC (4.8-10.8) K/uL RBC (4.2-5.4) M/uL Hgb (12.0-16.0) g/dL Hct (37-47) % MCV (80-100) fL MCH (25-34) pg MCHC (32-36) g/dL RDW Std Deviation (36.4-46.3) fL RDW Coeff of Tim (11.5-14.5) % Plt Count (130-400) K/uL MPV (7.4-10.4) fL Immature Gran % (Auto) % Neut % (Auto) % Lymph % (Auto) % [place] % (Auto) % Eos % (Auto) % Baso % (Auto) % Neut # (Auto) (1.4-6.5) K/uL Lymph # (Auto) (1.2-3.4) K/uL [place] # (Auto) (0.11-0.59) K/uL Eos # (Auto) (0-0.5) K/uL Baso # (Auto) (0-0.2) K/uL Immature Gran # (Auto) (0.00-0.02) K/uL Sodium (136-145) mmol/L Potassium (3.5-5.1) mmol/L Chloride (98-107) mmol/L Carbon Dioxide (21-32) mmol/L Anion Gap (3-11) BUN (7-18) mg/dl Creatinine (0.6-1.2) mg/dl Est Cr Clr Drug Dosing ml/min Est GFR ( Amer) ml/min Est GFR (Non-Af Amer) ml/min BUN/Creatinine Ratio (10-20) Glucose (70-99) mg/dl POC Glucose (70-99) mg/dl Estimat Average Glucose 163 mg/dl Hemoglobin A1c 7.3 H (4.5-5.6) % Calcium (8.5-10.1) mg/dl Phosphorus 6.3 H (2.5-4.9) mg/dl Magnesium Total Bilirubin (0.2-1) mg/dl AST (15-37) U/L ALT (12-78) U/L Alkaline Phosphatase (45-117) U/L Total Creatine Kinase 150 (26-192) U/L Troponin I (0-0.045) ng/ml Total Protein (6.4-8.2) gm/dl Albumin (3.4-5.0) gm/dl Globulin (2.5-4.0) gm/dl Albumin/Globulin Ratio (0.9-2) Lipase (73-393) U/L Urine Color Yellow Urine Appearance Turbid A (Clear) Urine pH 5.5 (4.5-7.5) Ur Specific [place] 1.010 (1.000-1.030) Urine Protein 2+ H (Negative) Urine Glucose (UA) Negative (Negative) Urine Ketones Negative (Negative) Urine Blood 1+ H (Negative) Urine Nitrite Negative (Negative) Urine Bilirubin Negative (Negative) Urine Urobilinogen Negative (Negative) Ur Leukocyte Esterase 3+ H (Negative) Urine WBC (Auto) >30 H (0-5) /hpf Urine RBC (Auto) 0-4 (0-4) /hpf U Hyaline Cast (Auto) 1-5 (0-5) /lpf U Epithel Cells (Auto) 10-20 H (0-5) /lpf Urine Bacteria (Auto) 2+ H (Negative) COVID-19 Eval Order SARS-CoV-2 (PCR) (Negative) 12/27/20 12/27/20 12/27/20 Range/Units 18:20 18:20 18:20 WBC 6.43 (4.8-10.8) K/uL RBC 3.21 L (4.2-5.4) M/uL Hgb 9.5 L (12.0-16.0) g/dL Hct 28.1 L (37-47) % MCV 87.5 (80-100) fL MCH 29.6 (25-34) pg MCHC 33.8 (32-36) g/dL RDW Std Deviation 46.2 (36.4-46.3) fL RDW Coeff of Tim 14.5 (11.5-14.5) % Plt Count 217 (130-400) K/uL MPV 12.0 H (7.4-10.4) fL Immature Gran % (Auto) 0.5 % Neut % (Auto) 65.9 % Lymph % (Auto) 24.3 % [place] % (Auto) 6.8 % Eos % (Auto) 2.3 % Baso % (Auto) 0.2 % Neut # (Auto) 4.24 (1.4-6.5) K/uL Lymph # (Auto) 1.56 (1.2-3.4) K/uL [place] # (Auto) 0.44 (0.11-0.59) K/uL Eos # (Auto) 0.15 (0-0.5) K/uL Baso # (Auto) 0.01 (0-0.2) K/uL Immature Gran # (Auto) 0.03 H (0.00-0.02) K/uL Sodium 139 (136-145) mmol/L Potassium 3.9 (3.5-5.1) mmol/L Chloride 116 H (98-107) mmol/L Carbon Dioxide 10 L (21-32) mmol/L Anion Gap 12.0 H (3-11) BUN 69 H (7-18) mg/dl Creatinine 6.34 H* (0.6-1.2) mg/dl Est Cr Clr Drug Dosing 6.2 ml/min Est GFR ( Amer) 6.5 ml/min Est GFR (Non-Af Amer) 5.6 ml/min BUN/Creatinine Ratio 10.9 (10-20) Glucose 75 (70-99) mg/dl POC Glucose (70-99) mg/dl Estimat Average Glucose mg/dl Hemoglobin A1c (4.5-5.6) % Calcium 8.5 (8.5-10.1) mg/dl Phosphorus (2.5-4.9) mg/dl Magnesium Total Bilirubin 0.2 (0.2-1) mg/dl AST 19 (15-37) U/L ALT 10 L (12-78) U/L Alkaline Phosphatase 245 H (45-117) U/L Total Creatine Kinase (26-192) U/L Troponin I 0.022 (0-0.045) ng/ml Total Protein 6.8 (6.4-8.2) gm/dl Albumin 2.9 L (3.4-5.0) gm/dl Globulin 3.9 (2.5-4.0) gm/dl Albumin/Globulin Ratio 0.7 L (0.9-2) Lipase 86 (73-393) U/L Urine Color Urine Appearance (Clear) Urine pH (4.5-7.5) Ur Specific [place] (1.000-1.030) Urine Protein (Negative) Urine Glucose (UA) (Negative) Urine Ketones (Negative) Urine Blood (Negative) Urine Nitrite (Negative) Urine Bilirubin (Negative) Urine Urobilinogen (Negative) Ur Leukocyte Esterase (Negative) Urine WBC (Auto) (0-5) /hpf Urine RBC (Auto) (0-4) /hpf U Hyaline Cast (Auto) (0-5) /lpf U Epithel Cells (Auto) (0-5) /lpf Urine Bacteria (Auto) (Negative) COVID-19 Eval Order SARS-CoV-2 (PCR) (Negative) (1) Constipation Constipation type: unspecified constipation type Qualified Code(s): K59.00 - Constipation, unspecified
--- NOTE | 2020-12-28 09:56 | Hospitalist Progress Note ---
Date of Service December 28, 2020 Assessment & Plan (1) Acute renal failure: Plan: ASSESSMENT AND PLAN: This is an 80-year-old female who presents with mild lethargy and found to have acute kidney injury. 1. Acute kidney injury on chronic kidney disease stage IV: Metabolic acidosis. CT of the abdomen +constipation and distended colon. Phosphorus was 6.3. Placed on bicarb drip at 80 mL per hour with potassium supplements and will follow the repeat labs in a.m. CK is okay. Nephrology consulted. Closely monitor in the tele floor. The patient seems to be not eating or drinking much at home. Could be prerenal. 2. Questionable some pressured speech: The patient was not getting out of the bed for the last [address] of the head is okay. If any concerns will get MRI of the head. 3. Chronic constipation: GI on case rec golytely and enemas 4. Urinary tract infection: Rocephin. Follow the cultures. 5. Bipolar disorder: Continue home medication. Could be contributing to her ongoing illness. 6. Diabetes: Hold Lantus. Insulin sliding scale. Monitor the blood sugars while the patient is getting her dextrose in the bicarbonate drip. 7. Hypertension: Continue her home medication of amlodipine and Coreg. We will monitor the blood pressure. 8. Hyperlipidemia: Continue statin. 9. Hypothyroidism: Continue Synthroid. 10. Deep venous thrombosis prophylaxis: Will place on heparin subcutaneous. DISPOSITION: Closely monitor in tele floor. Level 1 full code. Expect to discharge home and follow with family doctor. Labs checked ROS-No Headache, No Visual Changes, No Nausea, No Vomiting, No Fever, No Chills, No Neck Pain or Stiffness, No Chest Pain, No Palpitations, No SOB, No SIMMONS, No Cough, No Sputum, No Wheezing, No Abdominal Pain, No Diarrhea, No Hematemesis, No Hemoptysis, No Unexpected Weight Loss, No Flank pain, No Melena, No Hematochezia, No Frequency, No Urgency, No Burning, No Hematuria, No Rashes, No Diaphoresis. Appetite is Normal, weak Physical Exam Gen-AAO x 3, NAD, Afebrile Head-NCAT, EOMI, PERRLA, Anicteric Sclera, No Posterior Pharyngeal Erythema Neck-Supple, No JVD, No Thyromegaly, No Masses, No LAD, No Bruits Lungs-Clear to Auscultation Bilaterally, No Rales, No Rhonchi, No Wheezing, No Crepitus Chest-No S4, +S1, +S2, No S3, No Murmurs, No Rubs, No Gallops, No Ectopy Abdomen-Soft, Bowel Sounds Present, Non Tender, Non Distended, No Hepatomegaly, No Splenomegaly, No Palpable Masses, No Rebound, No Rigidity, No Guarding Musculoskeletal-Full Range of Motion Bilaterally, No CVAT Extremities-No Cyanosis, No Clubbing, No Edema Nuero-Cranial Nerves II-XII grossly intact, Motor WNL, DTRs WNL, Strength WNL, Non Focal Psych-Normal Mood Admission and Anticipated Discharge Date Admission Date: December 27, 2020 Results & Data Results & Data ([facility]) Vital Signs (Past 12 Hours) Vital Signs Pulse Pulse Resp BP BP Pulse Ox 12/28/20 05:21 62 15 149/54 H 100 12/28/20 04:54 60 12/28/20 00:00 64 18 150/63 H 12/27/20 23:30 60 14 142/60 H 12/27/20 23:00 64 20 150/57 H 12/27/20 22:30 60 20 134/80 100 12/27/20 22:00 60 11 L 135/54 L 98 (1) Acute renal failure Acute renal failure type: unspecified Qualified Code(s): N17.9 - Acute kidney failure, unspecified
[2020-12-28] MEDS: LAVAGE SOLUTION 4000ML PO SCH ×7 (10:03→12:38)
[2020-12-28] MEDS: OXYBUTYNIN CHLORIDE XL 5 MG TABCR PO SCH (10:16)
[2020-12-28] MEDS: PSYLLIUM 58.6% POWDER PACKET PO SCH (12:02)
--- NOTE | 2020-12-28 17:10 | Electrocardiogram Report ---
Test Reason : Blood Pressure : / mmHG Vent. Rate : 064 BPM Atrial Rate : 064 BPM P-R Int : 194 ms QRS Dur : 086 ms QT Int : 418 ms P-R-T Axes : 055 021 157 degrees QTc Int : 431 ms Atrial-paced rhythm Left ventricular hypertrophy with repolarization abnormality Abnormal ECG When compared with ECG of 15-APR-2020 14:51, Electronic atrial pacemaker has replaced Sinus rhythm QT has shortened Confirmed by Max Otto ([id number]) on 12/28/2020 5:10:15 PM Referred By: REFERRED SELF Confirmed By:Moises Otto
[2020-12-28 17:14] LABS: BUN Creatinine Ratio 12.7 (10-20); Calcium 8.4 mg/dl (8.5-10.1); Creatinine Clr Calc Pharmacy 6.2 ml/min; Est GFR (African American) 6.9 ml/min; Potassium 3.7 mmol/L (3.5-5.1)
--- NOTE | 2020-12-28 17:14 | Nephrology Consultation ---
Date of Consultation December 28, 2020 Assessment & Plan (1) Acute worsening of stage 4 chronic kidney disease: acute worsening of CKD which already is at baseline advanced CKD 4 w/ eGFR at baseline mid teens. minimal improvement with fluids overnight >> may need a bit more time; combined anion gap and hyperchloremic acidosis >> combination of renal failure and bowel issues; continue to monitor; not much movement even w/ bicarb supplementation; she has had one large bm already. stabel anemia. other chemistries acceptable; hyperphosphatemia not unexpected -some shivering >> no leukocytosis or obstruction on CT but will get blood cultures for completeness (already on abtx since 8 AM for uti) -agree w/ recheck bmp now -continue current ivf; she is tolerating rate -i did discuss w/ her she may need to start dialysis if no improvement - would need to discuss further but she knows what the tx is; has no access currently History of Present Illness Reason for Consultation: YEVGENIY on CKD 4 Requesting Physician: Dr Lopez Attending Physician: Regino Diaz, History of Present Illness 80 y/o F whom I'm asked to evaluate for YEVGENIY on CKD4 was admitted overnight for same after she presented w/ lethargy and weakness. 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 has had recurrent UTI on studies on [employer]. also has had hyponatremia in past including admission for same 02/2018 treated w/ salt tabs and holding ARB; not on salt tabs any longer. she follows w/ Dr Polo in CKD clinic; last seen 10/2020. her creatinine has been running in mid 2's w/ considerable lability over past year, last check was early November 2020 and in high 2's at that time. Pt has a caregiver at home who brought her in d/t pt not getting out of bed for past several days. Pt had per report been eating quite poorly as well. Admission eval remarkable for creatinine 6.3, bicarb 10, K 3.9; UA c/w infection and urine cx w/ GNR. CT abd/pelvis w/ mildly distended colon and moderate amount of retained stool. Dr Lopez contacted me to discuss her care > we started her on a bicarb gtt at 80 mL hourly overnight. This am her labs are essentially unchanged. she has voided but no specific amount. GI has evaluated the pt and is making recs regarding constipation mgt. The pt spent all night and most of today in the ER. she c/o N and occasional emesis, c/o sob adn abdominal tenderness; also c/o chills w/o F at home.+Dysuria. She knows what dialysis is; had d/w Dr Polo at October clinic visit and would do if need arose. Allergies Allergy/AdvReac Type Severity Reaction Status Date / Time Iodinated Contrast Media Allergy Severe Anaphylaxis Verified 12/27/20 18:00 mold Allergy Unknown UNKNOWN Verified 12/27/20 18:00 pollen extracts Allergy Unknown UNKNOWN Verified 12/27/20 18:00 mushroom Allergy Unknown Verified 12/27/20 18:00 Home Medications Medication Instructions Recorded Confirmed Type atorvastatin 20 mg tablet 20 mg PO HS 03/03/19 12/27/20 History levothyroxine 112 mcg tablet 112 mcg PO DAILYBB 05/07/19 12/27/20 History quetiapine 400 mg tablet 400 mg PO HS 02/15/20 12/27/20 History amlodipine 10 mg tablet 10 mg PO DAILY 04/15/20 12/27/20 History insulin aspart U-100 100 unit/mL 0 unit SUBCUT DIRECTED 05/15/20 12/27/20 History (3 mL) subcutaneous pen (Novolog Flexpen U-100 Insulin aspart) psyllium husk (aspartame) 3.4 2.5 g PO DAILY #660 g 05/15/20 12/27/20 Rx gram/5.8 gram oral powder (Metamucil [facility] Fiber) blood sugar diagnostic (OneTouch #500 ea 10/03/20 12/08/20 Rx Ultra Blue Test Strip) pen needle, diabetic 31 gauge x #500 ea 10/03/20 12/08/20 Rx 5/16" (Unifine Pentips) carvedilol 3.125 mg tablet 3.125 mg PO BID 30 Days #60 tab 12/11/20 12/27/20 Rx hydrocortisone acetate 25 mg 25 mg IN BID PRN 12/27/20 12/27/20 History rectal suppository insulin glargine 100 unit/mL (3 8 unit SUBCUT HS 12/27/20 12/27/20 History mL) subcutaneous pen (Lantus Solostar U-100 Insulin) lactulose 10 gram/15 mL oral 30 ml PO QID 12/27/20 12/27/20 History solution linaclotide 72 mcg capsule 72 mcg PO DAILYBB 12/27/20 12/27/20 History (Linzess) oxybutynin chloride 5 mg 5 mg PO DAILY 12/27/20 12/27/20 History tablet,extended release 24 hr Patient History Medical History Anemia of chronic disease Anxiety Bipolar 1 disorder CKD (chronic kidney disease) stage 4, GFR 15-29 ml/min Diabetes type 2, controlled Disc degeneration, lumbar Fracture of parietal bone of skull GERD (gastroesophageal reflux disease) Jonathan's thyroiditis Hemorrhage, subdural, traumatic HLD (hyperlipidemia) Hyperparathyroidism Hypertension Hypothyroidism IBS (irritable bowel syndrome) Irritable bowel syndrome with constipation Osteopenia Pacemaker Subarachnoid, subdural, and extradural hemorrhage, following injury Surgical History H/O lumpectomy History of total abdominal hysterectomy and bilateral salpingo-oophorectomy Hx of cholecystectomy Family History Sister Colorectal cancer Other Cancer Diabetes History of hysterectomy Hypertension Stroke Social History Smoking Status: Never smoker Second Hand Exposure: No; Do You Dip or Chew Tobacco: No; Tobacco Cessation Education Requested by Patient: No Hx Alcohol Use: No Hx Substance Use: No Preferred Language: Syriac Communication Ability: Effective Visual Impairment: No Limitations Hearing Ability: Normal Crossword Puzzle Maker Required: No Beliefs That Will Affect Care: None marital status: Current Living Situation: Spouse Current Living Situation Comment: home health Other Information That Helps Us Care for You: No Feels Safe at Home: Yes Safety Concerns: Feels Safe At This Time Assistive Devices: Glasses and Walker Review of Systems Review of Systems: 10 point ROS as per HPI and below Physical Exam Constitutional: well developed, well nourished, + acute distress (slight distress, shivering) and cooperative Eyes: EOM intact bilaterally ENMT: Ears: no external ear abnormality Nose: no external nose abnormality Mouth: + dry oral mucous membranes Neck: no nuchal rigidity Respiratory: normal respiratory effort Auscultation: + diminished lung sounds Cardiovascular: RRR, no murmur, no edema Gastrointestinal (Abdomen): Inspection/Auscultation: normal bowel sounds (very active; transmitted to chest) and + abdominal surgical drain present Percussion/Palpation: abdomen soft; abdomen nontender Musculoskeletal: Extremities: strength 5/5 throughout Skin: no rashes, warm and dry Neurologic: kenyon, fluent speech, no tremor but shivering Psychiatric: Orientation: oriented x 3 (resting quiently but opens eyes and talks) Results & Data ([facility]) Vital Signs (Past 12 Hours) Vital Signs Temp Pulse Resp BP Pulse Ox 12/28/20 15:14 36.7 C 67 18 131/67 98 12/28/20 11:00 60 16 165/93 H 98 12/28/20 10:19 60 16 165/93 H 97 12/28/20 05:21 62 15 149/54 H 100 Laboratory Results 12/28/20 05:[address] head, CXR, ct abd/pelvis reviewed
[2020-12-28] MEDS: DEXTROSE 5% IV SCH (17:57)
[2020-12-28] MEDS: POTASSIUM CHLORIDE IV SCH (17:57)
[2020-12-28] MEDS: SODIUM BICARBONATE IV SCH (17:57)
[2020-12-28] MEDS: ACETAMINOPHEN 325 MG TAB PO PRN (22:28)
[2020-12-29] MEDS: cefTRIAXone SODIUM 1,000 MG in DEXTROSE 5% 50 ML IV SCH (05:38)
[2020-12-29] MEDS: LEVOTHYROXINE SODIUM 112 MCG TABLET PO SCH (05:39)
[2020-12-29] MEDS: HEPARIN SOD 5,000 UNIT/0.5 ML VIAL SQ SCH ×2 (05:39→17:41)
--- NOTE | 2020-12-29 08:16 | Hospitalist Progress Note ---
Date of Service December 29, 2020 Assessment & Plan (1) Acute renal failure: Plan: ASSESSMENT AND PLAN: This is an 80-year-old female who presents with mild lethargy and found to have acute kidney injury. 1. Acute kidney injury on chronic kidney disease stage IV: Metabolic acidosis. CT of the abdomen +constipation and distended colon. Phosphorus was 6.3. Still on bicarb drip. Nephrology on case. May need HD. 2. Questionable some pressured speech: The patient was not getting out of the bed for the last [address] of the head is okay. If any concerns will get MRI of the head. 3. Chronic constipation: GI on case rec golytely and enemas 4. Urinary tract infection: Rocephin.+E Coli S to Rocephin. 5. Bipolar disorder: Continue home medication. Could be contributing to her ongoing illness. 6. Diabetes: Hold Lantus. Insulin sliding scale. 7. Hypertension: Continue her home medication of amlodipine and Coreg. We will monitor the blood pressure. 8. Hyperlipidemia: Continue statin. 9. Hypothyroidism: Continue Synthroid. 10. Deep venous thrombosis prophylaxis: Will place on heparin subcutaneous. DISPOSITION: Closely monitor in tele floor. Level 1 full code. Expect to discharge home and follow with family doctor. Labs checked ROS-No Headache, No Visual Changes, No Nausea, No Vomiting, No Fever, No Chills, No Neck Pain or Stiffness, No Chest Pain, No Palpitations, No SOB, No SIMMONS, No Cough, No Sputum, No Wheezing, No Abdominal Pain, No Diarrhea, No Hematemesis, No Hemoptysis, No Unexpected Weight Loss, No Flank pain, No Melena, No Hematochezia, No Frequency, No Urgency, No Burning, No Hematuria, No Rashes, No Diaphoresis. Appetite is Normal, weak Physical Exam Gen-AAO x 3, NAD, Afebrile Head-NCAT, EOMI, PERRLA, Anicteric Sclera, No Posterior Pharyngeal Erythema Neck-Supple, No JVD, No Thyromegaly, No Masses, No LAD, No Bruits Lungs-Clear to Auscultation Bilaterally, No Rales, No Rhonchi, No Wheezing, No Crepitus Chest-No S4, +S1, +S2, No S3, No Murmurs, No Rubs, No Gallops, No Ectopy Abdomen-Soft, Bowel Sounds Present, Non Tender, Non Distended, No Hepatomegaly, No Splenomegaly, No Palpable Masses, No Rebound, No Rigidity, No Guarding Musculoskeletal-Full Range of Motion Bilaterally, No CVAT Extremities-No Cyanosis, No Clubbing, No Edema Nuero-Cranial Nerves II-XII grossly intact, Motor WNL, DTRs WNL, Strength WNL, Non Focal Psych-Normal Mood Admission and Anticipated Discharge Date Admission Date: December 27, 2020 Results & Data Results & Data ([facility]) Vital Signs (Past 12 Hours) Vital Signs Temp Pulse Pulse Resp BP Pulse Ox 12/29/20 04:29 36.4 C L 60 18 143/52 H 98 12/29/20 00:03 36.4 C L 60 14 124/57 L 97 12/29/20 00:00 62 (1) Acute renal failure Acute renal failure type: unspecified Qualified Code(s): N17.9 - Acute kidney failure, unspecified
[2020-12-29] MEDS: INSULIN ASPART 100 UNITS/ML 3 ML PEN SC SCH ×4 (08:30→21:04)
--- NOTE | 2020-12-29 08:30 | XRay Report ---
XR KUB/Abdomen 1 view CLINICAL HISTORY: re-eval stool burden COMPARISON STUDY: 12/09/2020 FINDINGS: There is persistent gaseous distention of the colon. The cecum measures 10 cm. There is a m ild amount stool within the rectosigmoid. IMPRESSION: 1. Colonic distention 2. 10 cm cecum 3. Mild amount of stool within the rectosigmoid ACT 112: Negative or not required by law. Electronically signed by: Flaco Briggs M.D. 12/29/2020 8:28 AM
[2020-12-29] MEDS: SODIUM BICARBONATE IV SCH ×2 (08:42→23:40)
[2020-12-29] MEDS: DEXTROSE 5% IV SCH ×2 (08:42→23:40)
[2020-12-29] MEDS: POTASSIUM CHLORIDE IV SCH ×2 (08:42→23:40)
[2020-12-29] MEDS: carvediloL 3.125 MG TAB PO SCH ×2 (08:44→20:39)
[2020-12-29] MEDS: PSYLLIUM 58.6% POWDER PACKET PO SCH (08:44)
[2020-12-29] MEDS: OXYBUTYNIN CHLORIDE XL 5 MG TABCR PO SCH (08:45)
[2020-12-29] MEDS: amLODIPine BESYLATE 5 MG TAB PO SCH (08:45)
--- NOTE | 2020-12-29 09:11 | Gastroenterology Progress Note ---
Date of Service December 29, 2020 Assessment & Plan (1) Constipation: Plan: Pt is a 80 year old female with chronic comorbidities admitted through the ED with YEVGENIY - GI asked to evaluate for constipation, imaging w mildly distended colon down to the level of the distal descending colon w/o discrete obstructing mass, moderate stool within the right and transverse colon. She received Golytely, tap water enema, Lactulose and Metamucil. KUB this AM showed mild stool in rectosigmoid area but colon is distended w 10cm cecum. - DC Lactulose as may contribute to colonic distension. Start Miralax 17g BID PO and continue Metamucil daily. Repeat tap water enema today - Electrolytes and YEVGENIY management per primary service. Recommend keeping K >4 to promote GI motility - Avoid narcotics or sedatives - Encourage OOB, ambulation - Repeat KUB in AM Admission and Anticipated Discharge Date Admission Date: December 27, 2020 Supervising Physician Co-Signing Physician Notes 80 yo fm with chronic constipation follows with Dr. Oliveira as an outaptient, admitted through the ER yesterday with constipation and mild colon distension, noted to be in yevgeniy. She was given golytely and also tap water enemas. She also had been on outpatient lactulose for which I think that may be contributing somewhat to the colon distension. PE - thin female in nad, Abd - soft but full it feels like She does not appear to be moving around in the recent few months. Suspect she has slow colonic transi coupled with recent constipation - at this time, I would continue with smog enemas q 6 hours and tap water enemas q 4 and golytely. Subjective Noted last BM yesterday. Pt denies abd pain but reports soreness on rectum. Denies n/v, tolerated FL diet today KUB in AM reviewed: 1. Colonic distention 2. 10 cm cecum 3. Mild amount of stool within the rectosigmoid Review of Systems Review of Systems: All systems reviewed & are unremarkable except as noted in HPI & below Constitutional: as per Subjective / HPI Physical Exam Constitutional: WD/WN, vitals as above well groomed, cooperative and comfortable Eyes: PERRL, conjunctivae normal, anicteric sclerae ENMT: external ear and nose normal, oropharynx normal Respiratory: No respiratory distress noted, bases diminished bilaterally, no ronchi or wheezing Cardiovascular: RRR, no murmur, no edema Gastrointestinal (Abdomen): Mildly distended w active but some high pitched BS. Non tender on palpation Skin: no rashes, warm and dry no jaundice Lymphatic: no lymphedema Results & Data ([facility]) Vital Signs (Past 12 Hours) Vital Signs Temp Pulse Pulse Resp BP Pulse Ox 12/29/20 04:29 36.4 C L 60 18 143/52 H 98 12/29/20 00:03 36.4 C L 60 14 124/57 L 97 12/29/20 00:00 62 (1) Constipation Constipation type: unspecified constipation type Qualified Code(s): K59.00 - Constipation, unspecified
[2020-12-29] MEDS ORDERED: POLYETHYLENE (MIRALAX) 17 GM PACK ONE (09:18)
[2020-12-29] MEDS: POLYETHYLENE (MIRALAX) 17 GM PACK PO SCH ×2 (09:30→20:39)
--- NOTE | 2020-12-29 10:01 | Progress Notes ---
DATE OF NOTE: 12/29/2020. SUBJECTIVE: Patient denies having any new symptoms. She is having some abdominal comfort now follow ing successful enema. Appetite is getting better. She is still on IV fluid with bicarbonate drip. PHYSICAL EXAMINATION: VITAL SIGNS appears reasonable with blood pressure 143/52, temperature 36.4, 98% on room air. Mucous membrane is moist. NECK: Supple. No jugular venous distention. CHEST: Bilaterally clear to auscultation. CVS: S1 and S2, regular. ABDOMEN: Soft, nontender, somewhat distended. EXTREMITIES: Show no edema at all. SKIN: Shows no rashes. NEUROLOGIC: She is awake, alert and oriented. She is incontinent and has made a lot of urine. LABORATORY DATA: Not available today and has been ordered. Last creatinine yesterday was 6.05 with a BUN of 77 and a bicarbonate of 14. ASSESSMENT AND PLAN: An 80-year-old female with known preexisting chronic kidney disease IV, admitte d with abdominal pain, weakness, lethargy. Renal function did get slightly better yesterday afternoo n, but we do not have labs from this morning. She is definitely making urine, although she is incont inent, I am not able to measure the exact amount. RECOMMENDATIONS: For today: 1. Continue bicarbonate drip and we will readdress this after the blood work results from this morni ng, which has been ordered just now and is being drawn. 2. I did have a brief discussion again about a potential need for dialysis. She is agreeable, if robert ch need arise. Her recent baseline creatinine was in the mid 2s. So the current creatinine of 6 is definitely significantly higher. If the creatinine continues to be in the 6 range that is end-stage renal disease and needs dialysis at that point. Job ID: [id number]
[2020-12-29 10:17] LABS: BUN Creatinine Ratio 12.8 (10-20); Calcium 8.3 mg/dl (8.5-10.1); Creatinine Clr Calc Pharmacy 6.9 ml/min; Est GFR (African American) 7.8 ml/min; Est GFR (Non-African American) 6.7 ml/min; Phosphorus 5.5 mg/dl (2.5-4.9); Potassium 3.3 mmol/L (3.5-5.1)
[2020-12-29] MEDS: MINERAL OIL ENEMA 133 ML BTL PR SCH ×2 (12:45→18:54)
[2020-12-29] MEDS: POTASSIUM CHLORIDE CRTAB 20 MEQ TABCR PO SCH ×2 (16:30→17:43)
[2020-12-29] MEDS: ATORVASTATIN 20 MG TAB PO SCH (20:39)
[2020-12-29] MEDS: QUEtiapine FUMARATE 200 MG TAB PO SCH (20:39)
[2020-12-30] MEDS: MINERAL OIL ENEMA 133 ML BTL PR SCH ×4 (01:28→17:23)
[2020-12-30] MEDS: HEPARIN SOD 5,000 UNIT/0.5 ML VIAL SQ SCH ×2 (05:53→18:09)
[2020-12-30] MEDS: cefTRIAXone SODIUM 1,000 MG in DEXTROSE 5% 50 ML IV SCH (05:53)
[2020-12-30] MEDS: LEVOTHYROXINE SODIUM 112 MCG TABLET PO SCH (05:53)
[2020-12-30] MEDS: POTASSIUM CHLORIDE CRTAB 20 MEQ TABCR PO SCH ×2 (07:55→09:33)
[2020-12-30] MEDS: INSULIN ASPART 100 UNITS/ML 3 ML PEN SC SCH ×4 (07:56→21:34)
[2020-12-30] MEDS: OXYBUTYNIN CHLORIDE XL 5 MG TABCR PO SCH (08:00)
[2020-12-30] MEDS: PSYLLIUM 58.6% POWDER PACKET PO SCH (08:00)
[2020-12-30] MEDS: POLYETHYLENE (MIRALAX) 17 GM PACK PO SCH ×2 (08:00→21:43)
[2020-12-30] MEDS: amLODIPine BESYLATE 5 MG TAB PO SCH (08:02)
[2020-12-30] MEDS: carvediloL 3.125 MG TAB PO SCH ×2 (08:02→21:42)
[2020-12-30 08:56] LABS: Albumin Globulin Ratio 0.7 (0.9-2); BUN Creatinine Ratio 13.3 (10-20); Bilirubin,Total 0.3 mg/dl (0.2-1); Calcium 8.8 mg/dl (8.5-10.1); Creatinine Clr Calc Pharmacy 8.6 ml/min; Est GFR (African American) 10.2 ml/min; Est GFR (Non-African American) 8.8 ml/min; Globulin 4.1 gm/dl (2.5-4.0); Total Protein 7.1 gm/dl (6.4-8.2)
--- NOTE | 2020-12-30 08:59 | Nephrology Progress Note ---
Date of Service December 30, 2020 Assessment & Plan Admission and Anticipated Discharge Date Admission Date: December 27, 2020 Subjective SUBJECTIVE: Patient denies having any new symptoms. She is having some abdominal comfort now following successful enema. Appetite is getting better. She is still on IV fluid with bicarbonate drip. PHYSICAL EXAMINATION: NECK: Supple. No jugular venous distention. CHEST: Bilaterally clear to auscultation. CVS: S1 and S2, regular. ABDOMEN: Soft, nontender, somewhat distended. EXTREMITIES: Show no edema at all. SKIN: Shows no rashes. NEUROLOGIC: She is awake, alert and oriented. She is incontinent and has made a lot of urine. LABORATORY DATA: Creat trending down . labs getting better ASSESSMENT AND PLAN: An 80-year-old female with known preexisting chronic kidney disease IV, admitted with abdominal pain, weakness, lethargy. Renal function did get slightly better yesterday afternoon, but we do not have labs from this morning. She is definitely making urine, although she is incontinent, I am not able to measure the exact amount. RECOMMENDATIONS: For today: 1. Continue Iv fluid. Change to 1/2 NS at 80/hr. Bicarb normal now. Also lower k to just once daily. 2. I did have a brief discussion again about a potential need for dialysis. She is agreeable, if such need arise. Her recent baseline creatinine was in the mid 2s. So the current creatinine of mid 4 is definitely significantly higher. has gone down quite a bit so hopeful se willl gradually get back to baseline. YEVGENIY from pre renal from severe COnstipation Results & Data ([facility]) Vital Signs (Past 12 Hours) Vital Signs Temp Pulse Pulse Resp BP Pulse Ox 12/30/20 07:28 36.7 C 63 18 188/99 H 97 12/30/20 04:09 36.4 C L 67 18 179/85 H 99 12/30/20 01:51 63 12/29/20 23:29 36.9 C 59 L 18 128/71 97
[2020-12-30] MEDS: SODIUM CHLORIDE 0.45 % 1,000 ML IV SCH ×2 (09:33→21:42)
[2020-12-30] MEDS ORDERED: bisacodyL 10 MG SUPP PR STA (09:35)
--- NOTE | 2020-12-30 09:57 | XRay Report ---
XR KUB/Abdomen 1 view CLINICAL HISTORY: re-eval colonic distension COMPARISON STUDY: 12/29/2020 FINDINGS: There are surgical clips in the right upper quadrant. There is persistent colonic distentio n down to the level of the rectum. There is a paucity of rectal gas. The cecum measures [address] IMPRESSION: 1. Persistent gaseous distention of the colon, perhaps minimally less pronounced than on the prior st udy. 2. Paucity of rectal gas. ACT 112: Negative or not required by law. Electronically signed by: Flaco Briggs M.D. 12/30/2020 9:56 AM
[2020-12-30 10:07] LABS: Hematocrit (blood only) 28.4 % (37-47); Hemoglobin 9.8 g/dL (12.0-16.0); Mean Corpuscular Hemoglobin 30.2 pg (25-34); Mean Corpuscular Hgb Conc 34.5 g/dL (32-36); Mean Corpuscular Volume 87.4 fL (80-100); Mean Platelet Volume 12.3 fL (7.4-10.4); Platelet Count 186 K/uL (130-400); RDW Coefficient of Variation 14.3 % (11.5-14.5); RDW Standard Deviation 45.2 fL (36.4-46.3); Red Blood Count 3.25 M/uL (4.2-5.4); White Blood Count 6.93 K/uL (4.8-10.8)
--- NOTE | 2020-12-30 11:02 | Gastroenterology Progress Note ---
Date of Service December 30, 2020 Assessment & Plan (1) Constipation: Plan: Acute worsening of chronic constipation in this minimally mobile elderly patient. Abdominal distention is improved today compared to yesterday according to the RN and the x-ray. Dulcolax suppository. After discharge, would maintain on Miralax BID and if no BM in 24 hrs would add Dulcolax suppository. Admission and Anticipated Discharge Date Admission Date: December 27, 2020 Supervising Physician Co-Signing Physician Notes I saw and evaluated the patient. The patient had been previously seen by my partner due to severe constipation and cecal dilation. It appears that the imaging studies have improved with use of a bowel regimen. Recommendations MiraLAX 17 g 1-2 times daily indefinitely Dulcolax 10 mg Saturday Please call with any questions or concerns outpatient follow-up with Dr. Griffin as needed Subjective Ms. Noe Lanier is an 80 yr old female with ESRD on dialysis who follows with Dr. Oliveira for chronic constipation. She was admitted on 12/28 for worsened constipation, in YEVGENIY. KUB iwth distention - improved today compared to yesterday. Had tap water enemas yesterday, but refusing this morning. Taking Miralax po. No large BMs, but did pass a lot of gas. Review of Systems Review of Systems: Reports feeling better. Constitutional: No confusion but not a detailed historian. Denies fevers, chills, or current pain. Eyes: Denies eye problems Ear, Nose, Mouth, Throat: No congestion or runny nose, no throat pain Respiratory: No SOB or cough Cardiovascular: Additional Comments: Denies CP, irregular heart beats Gastrointestinal: Reports abdomen feels better today. No BMs yet today. Denies any nausea. Genitourinary: No dysuria Integumentary: No rashes, no pallor Neurologic: Grossly normal Psychiatric: no irritability, no anxiety and no confusion Endocrine: no polydipsia, no polyphagia and no polyuria Hematologic / Lymphatic: no easy bleeding and no easy bruising Physical Exam Constitutional: well developed and well nourished Eyes: + anicteric sclerae and PERRL; no eyelid abnormality ENMT: external ear and nose normal, oropharynx normal Neck: trachea midline, no thyromegaly Respiratory: normal respiratory effort, lungs clear to auscultation Cardiovascular: RRR, no murmur, no edema Gastrointestinal (Abdomen): Inspection/Auscultation: + abdomen distended (moderate, not taunt; non tender to palpation) and normal bowel sounds Skin: no rashes, warm and dry Neurologic: PERRL, EOMI, accommodation nl, no face palsy, no dysarthria Psychiatric: Orientation: oriented x 3 Apperance: appropriately groomed and appeared stated age Eye Contact: good eye contact Speech: normal rate/rhythm/volume of speech Results & Data ([facility]) Vital Signs (Past 12 Hours) Vital Signs Temp Pulse Pulse Resp BP Pulse Ox 12/30/20 07:28 36.7 C 63 18 188/99 H 97 12/30/20 04:09 36.4 C L 67 18 179/85 H 99 12/30/20 01:51 63 12/29/20 23:29 36.9 C 59 L 18 128/71 97 Laboratory Results WBC 7.7, Hb 10.7, Hct 33.2, Plts 214, Na 138, K 3.3, BUN 70, Cr 5.45, glucose 298 Diagnostic Findings KUB today 1. Persistent gaseous distention of the colon, perhaps minimally less pronounced than on the prior study. 2. Paucity of rectal gas. Non contrast CT 12/27/20: 1. Mildly distended colon down to the level of the distal descending colon. No discrete obstructing mass is visualized, clinical follow-up recommended 2. Moderate stool within the right and transverse colon 3. No evidence of acute appendicitis. No evidence of acute diverticulitis. 4. Mild bladder distention and mild bladder wall thickening. Interval resolution of the emphysematous cystitis visualized the prior study 5. Bilateral renal masses likely represents cysts 6. Dense calcification left renal artery 7. Examination limited by the lack of intravenous and oral contrast (1) Constipation Constipation type: unspecified constipation type Qualified Code(s): K59.00 - Constipation, unspecified
--- NOTE | 2020-12-30 14:11 | Hospitalist Progress Note ---
Date of Service December 30, 2020 Assessment & Plan (1) Acute worsening of stage 4 chronic kidney disease: Plan: Continuing IV fluid which was changed to half-normal at 80 cc an hour. Bicarb noted to be normal today. She is in agreement for starting hemodialysis should the need arise. However, her creatinine continues to trend down. Continue plan per nephro. (2) Constipation: Plan: KUB improved today with expected distention in the cecum. Per GI recommendations include MiraLAX 1-2 times daily indefinitely, Dulcolax 10 mg Saturday. Continues to follow with [facility] gastroenterology as outpatient for chronic constipation. (3) UTI (urinary tract infection): Plan: cnot Rocephin (4) HTN (hypertension): Plan: Uncontrolled, cont home amlodipine, coreg. Cannot add ACEI or ARB or diuretic in setting of YEVGENIY. Heart rate 64. Will add some oral hydralazine at this point. (5) Hypothyroidism: Plan: Cont Synthroid per home regimen. (6) DMII (diabetes mellitus, type 2): Plan: Controlled with insulin in the hospital. Cont close monitoring. (7) DVT prophylaxis: Plan: Heparin Full Dispo-uncertain, pending PT/OT assessments. Marlyn Larsen DO [facility] Hospitalist Admission and Anticipated Discharge Date Admission Date: December 27, 2020 Subjective 80-year-old female with chronic kidney disease presented with acute renal failure and worsened constipation. KUB improved compared to yesterday. She was undergoing tapwater enemas yesterday, however, refusing this morning. She is being followed by GI and nephrology. Creatinine improved on morning labs. Generally patient does not feel well but cannot specify this further. Denies nausea, pain, upset stomach, lightheadedness. Review of Systems Review of Systems: All systems were reviewed and negative except as indicated in HPI above. Physical Exam Physical Exam: CONSTITUTIONAL: WNWD, vitals as above, generally well- appearing EYES: normal conjunctivae, no scleral icterus ENT: external ear and nose normal, MMM RESPIRATORY: clear to auscultation bilaterally, no crackles, rales or wheezes, normal respiratory effort CARDIOVASCULAR: regular rate and rhythm, S1 and 2 heard without murmurs, gallops or rubs, no JVD, no peripheral edema GASTROINTESTINAL: soft, nontender, nondistended MUSCULOSKELETAL: strength 5/5 throughout, head is normocephalic and atraumatic SKIN: warm and dry NEUROLOGIC: CN 2-12 grossly intact, normal cognition, normal speech, no tremor PSYCHIATRIC: alert cooperative and oriented to person, place and time. Results & Data Results & Data ([facility]) Vital Signs (Past 12 Hours) Vital Signs Temp Pulse Pulse Resp BP Pulse Ox 12/30/20 11:28 36.8 C 70 20 185/83 H 98 12/30/20 08:00 66 12/30/20 07:28 36.7 C 63 18 188/99 H 97 12/30/20 04:09 36.4 C L 67 18 179/85 H 99 Laboratory Results Short CBC 12/30/20 12/30/20 Range/Units 08:02 09:45 WBC Cancelled 6.93 Hgb Cancelled 9.8 L Hct Cancelled 28.4 L Plt Count Cancelled 186 BMP 12/30/20 08:02 Sodium 137 Potassium 4.0 D Chloride 104 Carbon Dioxide 24 BUN 58 H Creatinine 4.37 H D Glucose 241 H Calcium 8.8 Liver Function 12/30/20 Range/Units 08:02 Total Bilirubin 0.3 (0.2-1) mg/dl AST 21 (15-37) U/L ALT 13 (12-78) U/L Alkaline Phosphatase 220 H (45-117) U/L Albumin 3.0 L (3.4-5.0) gm/dl Medications Administered Current Inpatient Medications Acetaminophen (Acetaminophen 325 Mg Tab) 650 mg PO Q4H PRN PRN Reason: Pain or Fever Stop: 01/27/21 04:58 Last Admin: 12/28/20 22:28 Dose: 650 mg Documented by: Amlodipine Besylate (Amlodipine Besylate 5 Mg Tab) 10 mg PO DAILY ROC Stop: 01/27/21 08:59 Last Admin: 12/30/20 08:02 Dose: 10 mg Documented by: Atorvastatin Calcium (Atorvastatin 20 Mg Tab) 20 mg PO HS ROC Stop: 01/27/21 04:58 Last Admin: 12/29/20 20:39 Dose: 20 mg Documented by: Carvedilol (Carvedilol 3.125 Mg Tab) 3.125 mg PO BID ROC Stop: 01/27/21 04:58 Last Admin: 12/30/20 08:02 Dose: 3.125 mg Documented by: Dextrose (Dextrose 50% 50 Ml Syringe) 25 - 50 ml IV UD PRN; Protocol PRN Reason: Hypoglycemia Protocol Stop: 01/27/21 05:14 Glucagon (Glucagon For Inj 1 Mg Vial) 1 mg IM UD PRN; Protocol PRN Reason: Hypoglycemia Protocol Stop: 01/27/21 05:14 Glucose (Glucose 40% Gel 15 Gm Tube) 15 - 30 gm PO UD PRN; Protocol PRN Reason: Hypoglycemia Protocol Stop: 01/27/21 05:14 Glucose (Glucose 10 Tabs/Tube) 4 - 8 tabs PO UD PRN; Protocol PRN Reason: Hypoglycemia Protocol Stop: 01/27/21 05:14 Heparin Sodium (Porcine) (Heparin Sod 5,000 Unit/0.5 Ml Vial) 5,000 units SQ Q12H ROC Stop: 01/27/21 05:59 Last Admin: 12/30/20 05:53 Dose: 5,000 units Documented by: Ceftriaxone Sodium 1,000 mg/ (Dextrose) 50 mls @ 100 mls/hr IV Q24H ROC; Protocol Stop: 01/07/21 05:59 Last Infusion: 12/30/20 06:21 Dose: Infused Documented by: Sodium Chloride (1/2 Nss) 1,000 mls @ 80 mls/hr IV .[id number] [facility] Stop: 01/29/21 08:59 Last Admin: 12/30/20 09:33 Dose: 80 mls/hr Documented by: Insulin Aspart (Insulin Aspart 100 Units/Ml 3 Ml Pen) 0 units SC ACHS ROC Stop: 01/27/21 20:59 Last Admin: 12/30/20 12:12 Dose: 5 units Documented by: Levothyroxine Sodium (Levothyroxine Sodium 112 Mcg Tablet) 112 mcg PO DAILYBB ROC Stop: 01/27/21 06:29 Last Admin: 12/30/20 05:53 Dose: 112 mcg Documented by: Mineral Oil (Mineral Oil Enema 133 Ml Btl) 133 ml MA Q6 ROC Stop: 01/28/21 11:59 Last Admin: 12/30/20 12:13 Dose: Not Given Documented by: Miscellaneous (Carbohydrates For Hypoglycemia ) 15 - 30 gm PO UD PRN PRN Reason: Hypoglycemia Treatment Stop: 01/27/21 05:14 Nitroglycerin (Nitroglycerin Sl 0.4 Mg/Tab Tab) 0.4 mg SL UD PRN PRN Reason: Chest Pain Stop: 01/27/21 04:58 Ondansetron HCl (Ondansetron Inj 2 Mg/Ml 2 Ml Vial) 4 mg IV Q6H PRN PRN Reason: Nausea Stop: 01/27/21 04:58 Oxybutynin Chloride (Oxybutynin Chloride Xl 5 Mg Tabcr) 5 mg PO DAILY ROC Stop: 01/27/21 08:59 Last Admin: 12/30/20 08:00 Dose: 5 mg Documented by: Polyethylene Glycol (Polyethylene (Miralax) 17 Gm Pack) 17 gm PO BID ROC Stop: 01/28/21 08:59 Last Admin: 12/30/20 08:00 Dose: 17 gm Documented by: Potassium Chloride (Potassium Chloride Crtab 20 Meq Tabcr) 20 meq PO DAILY ROC Stop: 01/29/21 08:59 Last Admin: 12/30/20 09:33 Dose: 20 meq Documented by: Psyllium Hydrophilic Mucilloid (Psyllium 58.6% Powder Packet) 1 pkt PO DAILY ROC Stop: 01/27/21 08:59 Last Admin: 12/30/20 08:00 Dose: 1 pkt Documented by: Quetiapine Fumarate (Quetiapine Fumarate 200 Mg Tab) 400 mg PO HS [facility] Stop: 01/27/21 04:58 Last Admin: 12/29/20 20:39 Dose: 400 mg Documented by: (1) Constipation Constipation type: unspecified constipation type Qualified Code(s): K59.00 - Constipation, unspecified
[2020-12-30] MEDS: ATORVASTATIN 20 MG TAB PO SCH (21:43)
[2020-12-30] MEDS: QUEtiapine FUMARATE 200 MG TAB PO SCH (21:43)
[2020-12-31] MEDS: MINERAL OIL ENEMA 133 ML BTL PR SCH ×4 (01:10→16:46)
[2020-12-31] MEDS: HEPARIN SOD 5,000 UNIT/0.5 ML VIAL SQ SCH ×2 (06:14→16:46)
[2020-12-31] MEDS: cefTRIAXone SODIUM 1,000 MG in DEXTROSE 5% 50 ML IV SCH (06:14)
[2020-12-31] MEDS: LEVOTHYROXINE SODIUM 112 MCG TABLET PO SCH (06:14)
[2020-12-31 07:46] LABS: BUN Creatinine Ratio 14.9 (10-20); Calcium 9.1 mg/dl (8.5-10.1); Creatinine Clr Calc Pharmacy 10.1 ml/min; Est GFR (African American) 12.5 ml/min; Est GFR (Non-African American) 10.8 ml/min; Potassium 4.6 mmol/L (3.5-5.1)
[2020-12-31 07:47] LABS: Phosphorus 4.2 mg/dl (2.5-4.9)
[2020-12-31] MEDS: amLODIPine BESYLATE 5 MG TAB PO SCH (07:59)
[2020-12-31] MEDS: PSYLLIUM 58.6% POWDER PACKET PO SCH (07:59)
[2020-12-31] MEDS: carvediloL 3.125 MG TAB PO SCH ×2 (07:59→21:46)
[2020-12-31] MEDS: POLYETHYLENE (MIRALAX) 17 GM PACK PO SCH ×2 (08:00→21:47)
[2020-12-31] MEDS: POTASSIUM CHLORIDE CRTAB 20 MEQ TABCR PO SCH (08:00)
[2020-12-31] MEDS: OXYBUTYNIN CHLORIDE XL 5 MG TABCR PO SCH (08:00)
[2020-12-31] MEDS: ACETAMINOPHEN 325 MG TAB PO PRN (08:03)
[2020-12-31] MEDS ORDERED: hydrALAZINE 10 MG TAB PO SCH (09:00)
[2020-12-31] MEDS: INSULIN ASPART 100 UNITS/ML 3 ML PEN SC SCH ×4 (09:03→21:52)
[2020-12-31] MEDS: hydrALAZINE HCL 20 MG/ML VIAL IV STA ×2 (09:04→09:47)
[2020-12-31] MEDS ORDERED: hydrALAZINE HCL 20 MG/ML VIAL IV STA ×2 (09:41→18:43)
[2020-12-31] MEDS: SODIUM CHLORIDE 0.45 % 1,000 ML IV SCH (10:20)
--- NOTE | 2020-12-31 13:06 | Nephrology Progress Note ---
Date of Service December 31, 2020 Assessment & Plan Admission and Anticipated Discharge Date Admission Date: December 27, 2020 Subjective SUBJECTIVE: Patient denies having any new symptoms. Appetite is getting better. She is still on IV fluid PHYSICAL EXAMINATION: NECK: Supple. No jugular venous distention. CHEST: Bilaterally clear to auscultation. CVS: S1 and S2, regular. ABDOMEN: Soft, nontender, somewhat distended. EXTREMITIES: Show no edema at all. SKIN: Shows no rashes. NEUROLOGIC: She is awake, alert and oriented. She is incontinent and has made a lot of urine. LABORATORY DATA: Creat trending down . labs getting better ASSESSMENT AND PLAN: An 80-year-old female with known preexisting chronic kidney disease IV, admitted with abdominal pain, weakness, lethargy. Renal function did get slightly better yesterday afternoon, but we do not have labs from this morning. She is definitely making urine, although she is incontinent, I am not able to measure the exact amount. RECOMMENDATIONS: For today: 1. Continue Iv fluid. Change to NS at 80/hr. 2. Her recent baseline creatinine was in the mid 2s. Now in the 3's so getting better. YEVGENIY from pre renal from poor PO intake from severe Constipation 3 Hopefully discharge tomorrow Results & Data ([facility]) Vital Signs (Past 12 Hours) Vital Signs Temp Pulse Resp BP Pulse Ox 12/31/20 11:03 36.5 C 70 22 152/84 H 98 12/31/20 07:22 36.5 C 66 16 186/98 H 98 12/31/20 02:58 37.0 C 65 17 161/79 H 95
[2020-12-31] MEDS: SODIUM CHLORIDE 0.9% 500 ML IV SCH ×2 (13:08→22:48)
[2020-12-31] MEDS: hydrALAZINE HCL 25 MG TAB PO SCH ×2 (14:19→21:46)
--- NOTE | 2020-12-31 17:06 | Hospitalist Progress Note ---
Date of Service December 31, 2020 Assessment & Plan (1) Acute worsening of stage 4 chronic kidney disease: Plan: Continuing IV fluid which was changed to NSS at 80 cc an hour. She is in agreement for starting hemodialysis should the need arise. However, her creatinine continues to trend down and is 3.69 today.. Continue plan per nephro. (2) Constipation: Plan: Resolved, having more regular BMs now, Per GI recommendations include MiraLAX 1- 2 times daily indefinitely, Dulcolax 10 mg Saturday. Continues to follow with [facility] gastroenterology as outpatient for chronic constipati on. (3) UTI (urinary tract infection): Plan: Cont Rocephin (4) HTN (hypertension): Plan: Uncontrolled, cont home amlodipine, coreg. Cannot add ACEI or ARB or diuretic in setting of YEVGENIY. Heart rate 64. Adding hydralazine throughout the day. NSS may be contributing. Will check with nephrology on the idea of a low dose spironolactone in am depending on her kidney function and electrolytes. (5) Hypothyroidism: Plan: Cont Synthroid per home regimen. (6) DMII (diabetes mellitus, type 2): Plan: On insulin but appears to be trending up with more solid food in her diet. Not on any carb coverage. Will tighten insulin coverage now and add glargine. (7) DVT prophylaxis: Plan: Heparin Full Dispo-likely back to home tomorrow, states she lives with her who has dementia and requires caregivers, has a friend who will drive her home. Pending PT/OT assessments. Marlyn Larsen DO [facility] Hospitalist Admission and Anticipated Discharge Date Admission Date: December 27, 2020 Subjective 80-year-old female with chronic kidney disease presented with acute renal failure and worsened constipation. Creatinine improved on morning labs. She has been having more successful BMs including this morning. Denies nausea, pain, upset stomach, lightheadedness. Tolerating solid diet. Encouraged to ambulate. Asking to go home and ok wtih tomorrow since this is ok [facility] nephrology. Review of Systems Review of Systems: All systems were reviewed and negative except as indicated in HPI above. Physical Exam Physical Exam: CONSTITUTIONAL: WNWD, vitals as above, generally well- appearing EYES: normal conjunctivae, no scleral icterus ENT: external ear and nose normal, MMM RESPIRATORY: clear to auscultation bilaterally, no crackles, rales or wheezes, normal respiratory effort CARDIOVASCULAR: regular rate and rhythm, S1 and 2 heard without murmurs, gallops or rubs, no JVD, no peripheral edema GASTROINTESTINAL: soft, nontender, nondistended MUSCULOSKELETAL: strength 5/5 throughout, head is normocephalic and atraumatic SKIN: warm and dry NEUROLOGIC: CN 2-12 grossly intact, normal cognition, normal speech, no tremor PSYCHIATRIC: alert cooperative and oriented to person, place and time. Results & Data Results & Data ([facility]) Vital Signs (Past 12 Hours) Vital Signs Temp Pulse Resp BP Pulse Ox 12/31/20 15:29 36.8 C 68 20 170/82 H 96 12/31/20 11:03 36.5 C 70 22 152/84 H 98 12/31/20 07:22 36.5 C 66 16 186/98 H 98 Laboratory Results BMP 12/31/20 06:27 Sodium 137 Potassium 4.6 Chloride 106 Carbon Dioxide 27 BUN 55 H Creatinine 3.69 H D Glucose 150 H Calcium 9.1 Medications Administered Current Inpatient Medications Acetaminophen (Acetaminophen 325 Mg Tab) 650 mg PO Q4H PRN PRN Reason: Pain or Fever Stop: 01/27/21 04:58 Last Admin: 12/31/20 08:03 Dose: 650 mg Documented by: Amlodipine Besylate (Amlodipine Besylate 5 Mg Tab) 10 mg PO DAILY ROC Stop: 01/27/21 08:59 Last Admin: 12/31/20 07:59 Dose: 10 mg Documented by: Atorvastatin Calcium (Atorvastatin 20 Mg Tab) 20 mg PO HS ROC Stop: 01/27/21 04:58 Last Admin: 12/30/20 21:43 Dose: 20 mg Documented by: Bisacodyl (Bisacodyl 10 Mg Supp) 10 mg AK MoWeFr@0900 ROC Stop: 02/01/21 08:59 Carvedilol (Carvedilol 3.125 Mg Tab) 3.125 mg PO BID ROC Stop: 01/27/21 04:58 Last Admin: 12/31/20 07:59 Dose: 3.125 mg Documented by: Dextrose (Dextrose 50% 50 Ml Syringe) 25 - 50 ml IV UD PRN; Protocol PRN Reason: Hypoglycemia Protocol Stop: 01/27/21 05:14 Glucagon (Glucagon For Inj 1 Mg Vial) 1 mg IM UD PRN; Protocol PRN Reason: Hypoglycemia Protocol Stop: 01/27/21 05:14 Glucose (Glucose 40% Gel 15 Gm Tube) 15 - 30 gm PO UD PRN; Protocol PRN Reason: Hypoglycemia Protocol Stop: 01/27/21 05:14 Glucose (Glucose 10 Tabs/Tube) 4 - 8 tabs PO UD PRN; Protocol PRN Reason: Hypoglycemia Protocol Stop: 01/27/21 05:14 Heparin Sodium (Porcine) (Heparin Sod 5,000 Unit/0.5 Ml Vial) 5,000 units SQ Q12H [facility] Stop: 01/27/21 05:59 Last Admin: 12/31/20 16:46 Dose: 5,000 units Documented by: Hydralazine HCl (Hydralazine Hcl 25 Mg Tab) 25 mg PO TID ROC Stop: 01/30/21 13:59 Last Admin: 12/31/20 14:19 Dose: 25 mg Documented by: Ceftriaxone Sodium 1,000 mg/ (Dextrose) 50 mls @ 100 mls/hr IV Q24H ROC; Protocol Stop: 01/07/21 05:59 Last Infusion: 12/31/20 06:53 Dose: Infused Documented by: Sodium Chloride (Nss) 500 mls @ 80 mls/hr IV .[id number] [facility] Stop: 01/30/21 13:14 Last Admin: 12/31/20 13:08 Dose: 80 mls/hr Documented by: Insulin Aspart (Insulin Aspart 100 Units/Ml 3 Ml Pen) 0 units SC ACHS [facility] Stop: 01/27/21 20:59 Last Admin: 12/31/20 16:46 Dose: 4 units Documented by: Levothyroxine Sodium (Levothyroxine Sodium 112 Mcg Tablet) 112 mcg PO DAILYBB [facility] Stop: 01/27/21 06:29 Last Admin: 12/31/20 06:14 Dose: 112 mcg Documented by: Mineral Oil (Mineral Oil Enema 133 Ml Btl) 133 ml AK Q6 [facility] Stop: 01/28/21 11:59 Last Admin: 12/31/20 16:46 Dose: Not Given Documented by: Miscellaneous (Carbohydrates For Hypoglycemia ) 15 - 30 gm PO UD PRN PRN Reason: Hypoglycemia Treatment Stop: 01/27/21 05:14 Nitroglycerin (Nitroglycerin Sl 0.4 Mg/Tab Tab) 0.4 mg SL UD PRN PRN Reason: Chest Pain Stop: 01/27/21 04:58 Ondansetron HCl (Ondansetron Inj 2 Mg/Ml 2 Ml Vial) 4 mg IV Q6H PRN PRN Reason: Nausea Stop: 01/27/21 04:58 Oxybutynin Chloride (Oxybutynin Chloride Xl 5 Mg Tabcr) 5 mg PO DAILY [facility] Stop: 01/27/21 08:59 Last Admin: 12/31/20 08:00 Dose: 5 mg Documented by: Polyethylene Glycol (Polyethylene (Miralax) 17 Gm Pack) 17 gm PO BID [facility] Stop: 01/28/21 08:59 Last Admin: 12/31/20 08:00 Dose: 17 gm Documented by: Potassium Chloride (Potassium Chloride Crtab 20 Meq Tabcr) 20 meq PO DAILY [facility] Stop: 01/29/21 08:59 Last Admin: 12/31/20 08:00 Dose: 20 meq Documented by: Psyllium Hydrophilic Mucilloid (Psyllium 58.6% Powder Packet) 1 pkt PO DAILY [facility] Stop: 01/27/21 08:59 Last Admin: 12/31/20 07:59 Dose: 1 pkt Documented by: Quetiapine Fumarate (Quetiapine Fumarate 200 Mg Tab) 400 mg PO HS [facility] Stop: 01/27/21 04:58 Last Admin: 12/30/20 21:43 Dose: 400 mg Documented by: (1) Constipation Constipation type: unspecified constipation type Qualified Code(s): K59.00 - Constipation, unspecified
[2020-12-31] MEDS ORDERED: hydrALAZINE HCL 20 MG/ML VIAL ONE (18:45)
[2020-12-31] MEDS ORDERED: INSULIN GLARGINE SOLOSTAR 100 UNITS/ML 3 ML PEN SC SCH (21:00)
[2020-12-31] MEDS: ATORVASTATIN 20 MG TAB PO SCH (21:46)
[2020-12-31] MEDS: QUEtiapine FUMARATE 200 MG TAB PO SCH (21:47)
[2020-12-31] MEDS ORDERED: SODIUM CHLORIDE 0.9% 1000ML 1,000 ML IV SCH (22:15)
[2021-01-01] MEDS: LEVOTHYROXINE SODIUM 112 MCG TABLET PO SCH (06:51)
[2021-01-01] MEDS: cefTRIAXone SODIUM 1,000 MG in DEXTROSE 5% 50 ML IV SCH (06:51)
[2021-01-01 07:40] LABS: BUN Creatinine Ratio 15.2 (10-20); Calcium 9.1 mg/dl (8.5-10.1); Creatinine Clr Calc Pharmacy 9.9 ml/min; Est GFR (African American) 12.2 ml/min; Est GFR (Non-African American) 10.5 ml/min; Phosphorus 3.7 mg/dl (2.5-4.9); Potassium 4.3 mmol/L (3.5-5.1)
[2021-01-01] MEDS: INSULIN ASPART 100 UNITS/ML 3 ML PEN SC SCH ×2 (07:59→11:32)
[2021-01-01] MEDS: amLODIPine BESYLATE 5 MG TAB PO SCH (08:00)
[2021-01-01] MEDS: hydrALAZINE HCL 25 MG TAB PO SCH (08:01)
[2021-01-01] MEDS: carvediloL 3.125 MG TAB PO SCH (08:01)
[2021-01-01] MEDS: HEPARIN SOD 5,000 UNIT/0.5 ML VIAL SQ SCH (08:01)
[2021-01-01] MEDS: OXYBUTYNIN CHLORIDE XL 5 MG TABCR PO SCH (08:02)
[2021-01-01] MEDS: POLYETHYLENE (MIRALAX) 17 GM PACK PO SCH (08:02)
[2021-01-01] MEDS: PSYLLIUM 58.6% POWDER PACKET PO SCH (08:03)
[2021-01-01] MEDS: POTASSIUM CHLORIDE CRTAB 20 MEQ TABCR PO SCH (08:03)
[2021-01-01] MEDS ORDERED: hydrALAZINE HCL 20 MG/ML VIAL IV STA (09:21)
--- NOTE | 2021-01-01 12:30 | Discharge Summary ---
Date of Service January 01, 2021 Admission HPI Per Admitting Provider HISTORY OF PRESENT ILLNESS: This is an 80-year-old female with past medical history significant for type 2 diabetes, chronic kidney disease stage IV, hyperparathyroidism secondary to renal disease, hyperlipidemia, hypothyroidism, hypertension, chronic constipation, vitamin D deficiency, GERD, overactive bladder, anemia of chronic kidney disease, iron deficiency anemia, bipolar disorder, personal history of malignant neoplasm of breast, status post cardiac pacemaker, history of duodenal ulcer, who lives with her who has dementia. She has caregivers at home. She has chronic constipation and mental illness. The patient was recently admitted for abdominal pain and constipation, and received stool softener and also enema and she did fine. She was getting Zosyn for colitis and for E. coli and discharged on Keflex. At baseline, creatinine was 2.4 and at the time of discharge, her creatinine was 2.9, repeat was 2.9 and she was discharged home. She also had followup with PCP. As per the PCP note, she has ongoing constipation, mental illness, and they have to frequently do welfare checks at home, but today caregiver brought her to the hospital because she seemed to be not getting up from the bed for the last 4 days. She has on and off some abdominal cramping and constipation. She says she moved her bowels yesterday. As per the ER note, she has not been eating well and she has been only drinking Ensure. The patient is speaking in low voices, alert and oriented. Her speech seems somewhat pressured, but states she has a very dry mouth. Denies any headache or blurred visions. No runny nose, no sore throat, no cough, no fever, feeling cold. No chest pain, no shortness of breath, no nausea. She says she is not making much urine. No swelling in the legs, hemodynamically stable, but her labs showed creatinine of 6.3, CO2 of 10, potassium 3.9, sodium 139. Her urine was positive. SARS-CoV-[address] of the abdomen and pelvis is showing mildly distended colon to the level of distal descending colon. No discrete obstructing masses visualized. Moderate stool with in right and transverse colon. No evidence of diverticulitis. CT of the head, preliminary report is okay. Admission Exam Per Admitting Provider PHYSICAL EXAMINATION: GENERAL: The patient is old and frail, not in acute distress . VITAL SIGNS: Temperature 37, pulse 67, respiratory rate 26, blood pressure 135/54, oxygen 97% on room air. HEENT: Pupils equal, round and reactive to light. Oral mucosa dry. NECK: No JVD, no neck masses. CARDIOVASCULAR: S1 and S2 heard. Regular rate and rhythm. No murmur, no gallop. RESPIRATORY SYSTEM: Normal AP diameter. No accessory muscle use. No wheezing, no crackles. ABDOMEN: Soft, bowel sounds present, nontender, no distention. CENTRAL NERVOUS SYSTEM: Alert and oriented x3, but speech is somewhat slow and somewhat pressured. Power 5/5 in all extremities. Sensation is intact. No pronator drift. EXTREMITIES: No edema, no erythema. Principal Diagnosis YEVGENIY in setting of pre-existing CKD Stage IV E coli UTI chronic constipation Discharge Exam CONSTITUTIONAL: WNWD, vitals as above, generally well-appearing EYES: normal conjunctivae, no scleral icterus ENT: external ear and nose normal, MMM RESPIRATORY: clear to auscultation bilaterally, no crackles, rales or wheezes, normal respiratory effort CARDIOVASCULAR: regular rate and rhythm, S1 and 2 heard without murmurs, gallops or rubs, no JVD, no peripheral edema GASTROINTESTINAL: soft, nontender, nondistended MUSCULOSKELETAL: strength 5/5 throughout, head is normocephalic and atraumatic SKIN: warm and dry NEUROLOGIC: CN 2-12 grossly intact, normal cognition, normal speech, no tremor PSYCHIATRIC: alert cooperative and oriented to person, place and time. Discharge Data Allergies Allergy/AdvReac Type Severity Reaction Status Date / Time Iodinated Contrast Media Allergy Severe Anaphylaxis Verified 12/27/20 18:00 mold Allergy Unknown UNKNOWN Verified 12/27/20 18:00 pollen extracts Allergy Unknown UNKNOWN Verified 12/27/20 18:00 mushroom Allergy Unknown Verified 12/27/20 18:00 Consultations 12/27/20 19:22 ED Decision to Admit Stat 12/28/20 08:00 Consult Gastroenterology Routine Consult Nephrology Routine Ordered Studies Laboratory Results WBC 6.93 K/uL (4.8-10.8) 12/30/20 09:45 RBC 3.25 M/uL (4.2-5.4) L 12/30/20 09:45 Hgb 9.8 g/dL (12.0-16.0) L 12/30/20 09:45 Hct 28.4 % (37-47) L 12/30/20 09:45 MCV 87.4 fL (80-100) 12/30/20 09:45 MCH 30.2 pg (25-34) 12/30/20 09:45 MCHC 34.5 g/dL (32-36) 12/30/20 09:45 RDW Std Deviation 45.2 fL (36.4-46.3) 12/30/20 09:45 RDW Coeff of Tim 14.3 % (11.5-14.5) 12/30/20 09:45 Plt Count 186 K/uL (130-400) 12/30/20 09:45 MPV 12.3 fL (7.4-10.4) H 12/30/20 09:45 Immature Gran % (Auto) 0.6 % 12/28/20 05:07 Neut % (Auto) 78.4 % 12/28/20 05:07 Lymph % (Auto) 16.3 % 12/28/20 05:07 [place] % (Auto) 2.9 % 12/28/20 05:07 Eos % (Auto) 1.4 % 12/28/20 05:07 Baso % (Auto) 0.4 % 12/28/20 05:07 Neut # (Auto) 5.62 K/uL (1.4-6.5) 12/28/20 05:07 Lymph # (Auto) 1.17 K/uL (1.2-3.4) L 12/28/20 05:07 [place] # (Auto) 0.21 K/uL (0.11-0.59) 12/28/20 05:07 Eos # (Auto) 0.10 K/uL (0-0.5) 12/28/20 05:07 Baso # (Auto) 0.03 K/uL (0-0.2) 12/28/20 05:07 Immature Gran # (Auto) 0.04 K/uL (0.00-0.02) H 12/28/20 05:07 Absolute Nucleated RBC Cancelled 12/30/20 08:02 Nucleated RBC % (auto) Cancelled 12/30/20 08:02 Platelet Estimate Cancelled 12/30/20 08:02 Sodium 140 mmol/L (136-145) 01/01/21 06:54 Potassium 4.3 mmol/L (3.5-5.1) 01/01/21 06:54 Chloride 109 mmol/L (98-107) H 01/01/21 06:54 Carbon Dioxide 26 mmol/L (21-32) 01/01/21 06:54 Anion Gap 6.0 (3-11) 01/01/21 06:54 BUN 57 mg/dl (7-18) H 01/01/21 06:54 Creatinine 3.77 mg/dl (0.6-1.2) H 01/01/21 06:54 Est Cr Clr Drug Dosing 9.9 ml/min 01/01/21 06:54 Est GFR ( Amer) 12.2 ml/min 01/01/21 06:54 Est GFR (Non-Af Amer) 10.5 ml/min 01/01/21 06:54 BUN/Creatinine Ratio 15.2 (10-20) 01/01/21 06:54 Glucose 119 mg/dl (70-99) H 01/01/21 06:54 POC Glucose 192 mg/dl (70-99) H 01/01/21 11:02 Estimat Average Glucose 163 mg/dl 12/27/20 18:20 Hemoglobin A1c 7.3 % (4.5-5.6) H 12/27/20 18:20 Calcium 9.1 mg/dl (8.5-10.1) 01/01/21 06:54 Phosphorus 3.7 mg/dl (2.5-4.9) 01/01/21 06:54 Magnesium 2.4 mg/dl (1.8-2.4) 12/28/20 08:22 Total Bilirubin 0.3 mg/dl (0.2-1) 12/30/20 08:02 AST 21 U/L (15-37) 12/30/20 08:02 ALT 13 U/L (12-78) 12/30/20 08:02 Alkaline Phosphatase 220 U/L (45-117) H 12/30/20 08:02 Total Creatine Kinase 150 U/L (26-192) 12/27/20 18:20 Troponin I 0.022 ng/ml (0-0.045) 12/27/20 18:20 Total Protein 7.1 gm/dl (6.4-8.2) 12/30/20 08:02 Albumin 3.0 gm/dl (3.4-5.0) L 12/30/20 08:02 Globulin 4.1 gm/dl (2.5-4.0) H 12/30/20 08:02 Albumin/Globulin Ratio 0.7 (0.9-2) L 12/30/20 08:02 Lipase 86 U/L (73-393) 12/27/20 18:20 Urine Color Yellow 12/27/20 19:10 Urine Appearance Turbid (Clear) A 12/27/20 19:10 Urine pH 5.5 (4.5-7.5) 12/27/20 19:10 Ur Specific [place] 1.010 (1.000-1.030) 12/27/20 19:10 Urine Protein 2+ (Negative) H 12/27/20 19:10 Urine Glucose (UA) Negative (Negative) 12/27/20 19:10 Urine Ketones Negative (Negative) 12/27/20 19:10 Urine Blood 1+ (Negative) H 12/27/20 19:10 Urine Nitrite Negative (Negative) 12/27/20 19:10 Urine Bilirubin Negative (Negative) 12/27/20 19:10 Urine Urobilinogen Negative (Negative) 12/27/20 19:10 Ur Leukocyte Esterase 3+ (Negative) H 12/27/20 19:10 Urine WBC (Auto) >30 /hpf (0-5) H 12/27/20 19:10 Urine RBC (Auto) 0-4 /hpf (0-4) 12/27/20 19:10 U Hyaline Cast (Auto) 1-5 /lpf (0-5) 12/27/20 19:10 U Epithel Cells (Auto) 10-20 /lpf (0-5) H 12/27/20 19:10 Urine Bacteria (Auto) 2+ (Negative) H 12/27/20 19:10 COVID-19 Eval Order Covid19 at [facility] 12/27/20 20:00 SARS-CoV-2 (PCR) NEGATIVE (Negative) 12/27/20 20:00 Impressions Abdomen/Pelvis CT 12/27/20 17:22 CT SCAN OF THE ABDOMEN AND PELVIS WITHOUT CONTRAST CLINICAL HISTORY: abd pain, diffuse COMPARISON STUDY: 12/08/2020 TECHNIQUE: CT scan of the abdomen and pelvis was performed from the lung bases to the proximal femurs. Images are reviewed in the axial, sagittal, and coronal planes. IV contrast was not administered for this examination. A dose lowering technique was utilized adhering to the principles of ALARA. CT DOSE: 327.65 mGy.cm FINDINGS: Lower chest: There are trace pleural effusions. There are dependent opacities, likely atelectatic Liver: The unenhanced liver is normal in size, contour, and attenuation. There is no intrahepatic biliary ductal dilatation. Gallbladder: Surgically absent Spleen: Normal in size and attenuation. Pancreas: Unremarkable. Adrenal glands: Unremarkable. Kidneys: There are multiple bilateral hypodense renal masses, statistically representing cysts. There are extensive left renal artery calcifications. Bowel: There is gaseous prominence of the colon to the level of the distal descending colon. There is moderate colonic stool within the right and transverse colon. Given the findings in the prior study, an ileus is favored over a bowel obstruction. There is no evidence of acute appendicitis. There is no evidence of acute diverticulitis Peritoneum: There is no intraperitoneal free air or abdominal ascites. Vasculature: The abdominal aorta is normal in course and caliber. Adenopathy: None. Pelvic viscera: The uterus is surgically absent. The bladder is mildly distended with mild wall thickening. Skeletal structures: There is an old superior endplate T12 compression fracture IMPRESSION: 1. Mildly distended colon down to the level of the distal descending colon. No discrete obstructing mass is visualized, clinical follow-up recommended 2. Moderate stool within the right and transverse colon 3. No evidence of acute appendicitis. No evidence of acute diverticulitis. 4. Mild bladder distention and mild bladder wall thickening. Interval resolution of the emphysematous cystitis visualized the prior study 5. Bilateral renal masses likely represents cysts 6. Dense calcification left renal artery 7. Examination limited by the lack of intravenous and oral contrast ACT 112: Negative or not required by law. Electronically signed by: Flaco Briggs M.D. 12/27/2020 6:21 PM Chest X-Ray 12/27/20 17:24 XR chest 1V portable CLINICAL HISTORY: weakness COMPARISON STUDY: 05/30/2020 FINDINGS: The cardiac and mediastinal contours remain stable. There is no failure. There is no focal pulmonary consolidation. There are no pleural effusions. There is aortic tortuosity with aortic knob calcification. There is a right subclavian dual-chamber central venous pacemaker.[There is gaseous distention of the visualized upper abdominal bowel. IMPRESSION: No active disease in the chest. ACT 112: Negative or not required by law. Electronically signed by: Flaco Briggs M.D. 12/27/2020 5:[address] 12/27/20 20:[address] DOSE: 537.48 mGy.cm HISTORY: pressured speech? TECHNIQUE: Multiaxial CT images of the head were performed without the use of intravenous contrast. Automated exposure control was utilized for this study. A dose lowering technique was utilized adhering to the principles of ALARA. Comparison: Head CT 04/15/2020. Findings: The paranasal sinuses and mastoid air cells are clear. The calvarium and skull base are intact. There is no mass, hematoma, midline shift, acute infarct. White matter hypodensity is nonspecific but suggestive of microvascular ischemic change. The ventricles and sulci demonstrate mild age-related involutional changes. Impression: No significant change compared to the prior study. No acute intracranial abnormality. ACT 112: Negative or not required by law. Electronically signed by: Luciano Gonzalez M.D. 12/28/2020 7:21 AM KUB X-Ray 12/30/20 07:00 XR KUB/Abdomen 1 view CLINICAL HISTORY: re-eval colonic distension COMPARISON STUDY: 12/29/2020 FINDINGS: There are surgical clips in the right upper quadrant. There is persistent colonic distention down to the level of the rectum. There is a paucity of rectal gas. The cecum measures [address] IMPRESSION: 1. Persistent gaseous distention of the colon, perhaps minimally less pronounced than on the prior study. 2. Paucity of rectal gas. ACT 112: Negative or not required by law. Electronically signed by: Flaco Briggs M.D. 12/30/2020 9:56 AM Hospital Course (1) Acute worsening of stage 4 chronic kidney disease: No clear reason for development of acute kidney failure. She reports some dehydration prior to arrival and improved with IVF. Nephrology followed patient throughout her stay. She was in agreement for starting hemodialysis should the need arise. However, her creatinine continued to trend down and this was not needed. Discharge creatinine (3.77) was higher than her baseline but is expected to continue to improve. Repeat BMP in one week with PCP. (2) Constipation: Resolved, having more regular BMs after intervention with laxatives and mineral oil enemas per [facility] gastroenterology who followed her in the hospital. KUB revealed gasseous distension of the cecum which improved. Discharge recommendations include MiraLAX 1-2 times daily indefinitely, Dulcolax 10 mg Saturday. Continues to follow with [facility] gastroenterology as outpatient for chronic constipation. (3) UTI (urinary tract infection): Recurrent e coli. Received Rocephin as inpatient transitioned to renally dosed amoxicillin at discharge. (4) HTN (hypertension): Uncontrolled, cont home amlodipine, coreg. Cannot add ACEI or ARB or diuretic in setting of YEVGENIY. Heart rate 64. Added hydralazine, however, she is still high. No spironolactone given renal function. NSS may be contributing. Recheck BP in next few days with PCP. (5) Hypothyroidism: Cont Synthroid per home regimen. (6) DMII (diabetes mellitus, type 2): On insulin during the hospital stay. Cont home insulin regimen at discharge. At time of discharge she was seen by PT who recommended a rehab program as a transition to home. However the patient adamantly declined and reports she has 24/7 caregivers. I left a message with case management to offer her home health for nursing care, PT and OT. This may be advantageous for the next couple of weeks until she gets back on her feet. Blood pressure is slightly elevated at time of discharge and we discussed that she should have this followed up with her primary care doctor. Hydralazine as a new prescription was written for her. We discussed her laxative regimen to continue treating her chronic constipation. Overall she was improved clinically and excited to go home. She was discharged in stable condition with close primary care follow-up recommended. BMP in 1 week. Total Time Total Time Spent Total Time Spent (In Minutes): 60 Discharge Plan Discharge Items Patient Disposition: Home - Home Health Services Reason For Visit: ILLNESS Discharge Diagnosis: YEVGENIY in setting of pre-existing CKD Stage IV E coli UTI chronic constipation Activity: Resume your previous activity Non-emergency contact: Primary Care Provider Call non-emergency contact if: you have any medication questions, your symptoms worsen, your pain is unusual for you and your pain is concerning for you Follow-up/Referrals: Usama Meadows MD [Primary Care Provider] - 01/09/21 11:00 am (Please follow up with Dr. Meadows on Saturday01/09/21 at 11:00 am. Please arrive to the office at 10:45 am. If you are unable to keep this appointment, please call the office to reschedule at [phone].) Diet: Regular Diet Texture: Dental soft (bite-sized) Addtl Attending Provider Instructions: Please take all medications as instructed on discharge list below. You have been given five more days of antibiotics to take and can start your next pill tomorrow morning. Your blood pressure was elevated in the hospital. This is thought to improve once you are off intravenous fluids, and you have been given an additional blood pressure medication called HYDRALAZINE. Please ensure close follow-up with your primary care provider within one week to ensure close monitoring of your kidney function and blood pressure. Please note that is was recommended that you undergo a rehabilitation program for physical reconditioning prior to going home. As you have decided against this, I would like to offer you home health for physical and occupational therapy to come to your home and help [facility] rehabilitation there. Someone from our Case Management department should be contacting you soon to set that up. Please continue to use the daily Miralax powder given in order to have a bowel movement daily. Please use the Dulcolax suppositories as needed if that is not happening. Please continue to follow-up [facility] Gastroenterology for your chronic constipation condition. It was a pleasure taking care of you! Please call if you have any questions or problems. You can reach a [facility] hospitalist on duty at [facility] 24 hours a day by calling [phone]. Take care of yourself. Marlyn Larsen, DO [facility] Hospitalist Pending Studies at Discharge: No Stand-Alone Forms: My [facility] Medications and DC Order Prescriptions: New amoxicillin 500 mg Capsule 500 mg PO Q24H Qty: 5 RF: 0 hydralazine 25 mg Tablet 25 mg PO TID Qty: 90 RF: 0 polyethylene glycol 3350 [Miralax] 17 gram Powder In Packet 17 g PO DAILY Qty: 30 RF: 1 bisacodyl [Dulcolax (bisacodyl)] 10 mg suppository 10 mg MN DAILY PRN (Reason: if no BM in 24 hours) Qty: 12 RF: 0 Continued (DME) OneTouch Ultra Blue Test Strip Strip See Rx Instructions .ROUTE .MEDSUPPLY Qty: 500 RF: 3 (DME) pen needle, diabetic [Unifine Pentips] 31 gauge x 5/16" needle See Rx Instructions .ROUTE .MEDSUPPLY Qty: 500 RF: 3 quetiapine 400 mg tablet 400 mg PO HS RF: 0 atorvastatin 20 mg tablet 20 mg PO HS RF: 0 amlodipine 10 mg tablet 10 mg PO DAILY RF: 0 levothyroxine 112 mcg tablet 112 mcg PO DAILYBB RF: 0 insulin aspart U-100 [Novolog Flexpen U-100 Insulin] 100 unit/mL (3 mL) insulin pen 0 unit SUBCUT DIRECTED RF: 0 Metamucil [facility] Fiber 3.4 gram/5.8 gram powder 2.5 g PO DAILY Qty: 660 RF: 0 hydrocortisone acetate 25 mg Suppository 25 mg MN BID PRN (Reason: Hemorrhoids) RF: 0 oxybutynin chloride 5 mg tablet extended release 24hr 5 mg PO DAILY RF: 0 Linzess 72 mcg capsule 72 mcg PO DAILYBB RF: 0 Lantus Solostar U-100 Insulin 100 unit/mL (3 mL) insulin pen 8 unit SUBCUT HS RF: 0 carvedilol 3.125 mg Tablet 3.125 mg PO BID 30 Days Qty: 60 RF: 0 Discontinued lactulose 10 gram/15 mL solution 30 ml PO QID RF: 0 Discharge Orders: Discharge Order (Routine); Ordered 01/01/21 Ordered By: Marlyn Rogel/Other Patient Handouts: A1C, High Blood Sugar (Hyperglycemia), Hypoglycemia (Low Blood Sugar), Managing Type 2 Diabetes Admission Data Admit Date/Time: 12/27/20 20:49 Attending Provider: Marlyn Larsen Admit Provider: Nomi Lopez Primary Care Provider: Usama Meadows Other Providers: Nomi Lopez ; Brice Whitman ; Katelynn Agosto ; Gregory Salmeron ; Marychuy Esqueda ; Bonilla Ramos ; Catie Beyer ; Timothy Braga ; Yariel Oliveira ; Idalmis Smith ; Sveta Santiago ; Tamanna Oropeza ; Ana Griffin ; Ellis Oakes ; Henrietta Rahman Other Interventions: Discharge Summary Assessment (RN) Last Done: 01/01/21 09:54
[2021-01-02] MEDS ORDERED: bisacodyL 10 MG SUPP PR SCH (09:00)
[2021-01-02] MEDS ORDERED: AMOXICILLIN 500 MG CAP PO SCH (09:30)
== END 2021-01-01 13:24 | disposition home health service (06) | DRG 683 ==
LOC: ED 15:27 → SUATTDRO 20:49 → EDINP 20:49 → 2S 20:50 → UNDODISIN 12-28 14:45